=== PATIENT | female | born 1940 | race Caucasian/White ===

== ENCOUNTER 2019-01-11 13:37 | Inpatient (IN) | payer OTHER ==
[2019-01-11] MEDS ORDERED: MORPHINE 2 MG/ML SYR ONE ×3 (14:51→18:11)
[2019-01-11] MEDS ORDERED: ONDANSETRON 4 MG/2 ML VIAL ONE (14:51)
--- NOTE | 2019-01-11 15:53 | RAD REPORT ---
EXAM DESCRIPTION: RAD - Pelvis - 01/11/2019 3:43 pm CLINICAL HISTORY: Left hip pain status post injury FINDINGS: An intertrochanteric fracture involves the proximal left femur extending into the greater trochanter. Fracture fragments by 4 millimeters. Mild varus angulation. No dislocation seen
--- NOTE | 2019-01-11 15:54 | RAD REPORT ---
EXAM DESCRIPTION: RAD - Hip Left 2 View - 01/11/2019 3:43 pm CLINICAL HISTORY: Left hip pain status post injury FINDINGS: An intertrochanteric fracture involves the proximal left femur extending into the greater trochanter. Fracture fragments by 4 millimeters. Mild varus angulation. No dislocation seen
--- NOTE | 2019-01-11 16:19 | ER ---
Nurse's Notes [facility] Name: Luisa Sanchez Age: 78 yrs Sex: Female : 1940 Arrival Date: 01/11/2019 Time: 13:45 Bed 8 Private MD: Diagnosis: Left hip intertrochanteric fracture, closed head injury Presentation: 01/11 13:45 Presenting complaint: EMS states: She was walking to get her news paper when she aj1 slipped. Patient reports left hip pain, is unable to stand or bear weight. Transition of care: patient was not received from another setting of care. Onset of symptoms was January 11, 2019. Risk Assessment: Do you want to hurt yourself or someone else? Patient reports no desire to harm self or others. Initial Sepsis Screen: Does the patient meet any 2 criteria? No. Patient's initial sepsis screen is negative. Does the patient have a suspected source of infection? No. Patient's initial sepsis screen is negative. Care prior to arrival: None. 13:45 Method Of Arrival: EMS: [facility] aj1 13:45 Acuity: ELIEZER 3 aj1 Triage Assessment: 13:51 General: Appears in no apparent distress. uncomfortable, Behavior is calm, cooperative, aj1 appropriate for age. Pain: Complains of pain in left hip and lateral aspect of left thigh. Historical: - Allergies: 13:51 No Known Allergies; aj1 - Home Meds: 13:51 metformin 750 mg Oral Tb24 1 tab once daily [Active]; atorvastatin 10 mg oral tab 1 tab aj1 once daily [Active]; glimepiride 4 mg Oral tab 1 tab once daily [Active]; Bystolic 10 mg oral tab 1 tab once daily [Active]; losartan 100 mg oral tab 1 tab once daily [Active]; - PMHx: 13:51 Hypertension; Diabetes - NIDDM; Hyperlipidemia; aj1 - Immunization history:: Flu vaccine is not up to date. - Social history:: Smoking status: Patient uses tobacco products, smokes two packs cigarettes per day. - Ebola Screening: : Patient denies travel to an Ebola-affected area in the 21 days before illness onset. Screenin:55 Abuse screen: Denies threats or abuse. Denies injuries from another. Nutritional aj1 screening: No deficits noted. Tuberculosis screening: No symptoms or risk factors identified. 20:23 Fall Risk Fall in past 12 months (25 points). No secondary diagnosis (0 pts). IV access aj1 (20 points). Ambulatory Aid- None/Bed Rest/Nurse Assist (0 pts). Gait- Normal/Bed Rest/Wheelchair (0 pts) Mental Status- Oriented to own ability (0 pts). Total Oh Fall Scale indicates High Risk Score (45 or more points). Fall prevention measures have been instituted. Family Present and informed to notify staff if the need to leave the bedside As available patient and family educated on Fall Prevention Program and Strategies. Assessment: 13:55 General: Appears in no apparent distress. uncomfortable, Behavior is calm, cooperative, aj1 appropriate for age. Pain: Complains of pain in lateral aspect of left thigh and left hip Pain does not radiate. Pain currently is 9 out of 10 on a pain scale. Quality of pain is described as aching, sharp. Neuro: Level of Consciousness is awake, alert, obeys commands, Oriented to person, place, time, situation. Cardiovascular: Patient's skin is warm and dry. Respiratory: Airway is patent Respiratory effort is even, unlabored, Respiratory pattern is regular, symmetrical. GI: No signs and/or symptoms were reported involving the gastrointestinal system. : No signs and/or symptoms were reported regarding the genitourinary system. EENT: No signs and/or symptoms were reported regarding the EENT system. Derm: No signs and/or symptoms reported regarding the dermatologic system. Skin is pink, warm \T\ dry. normal. Musculoskeletal: Range of motion: limited in left hip. 14:45 Reassessment: Patient states that she is starting to have some pain now. Notified Dr. america Muhammad. Order received. 15:00 Reassessment: Patient appears in no apparent distress at this time. No changes from aj1 previously documented assessment. Patient and/or family updated on plan of care and expected duration. Pain level reassessed. Patient is alert, oriented x 3, equal unlabored respirations, skin warm/dry/pink. 16:00 Reassessment: Patient appears in no apparent distress at this time. No changes from aj1 previously documented assessment. Patient and/or family updated on plan of care and expected duration. Pain level reassessed. Patient is alert, oriented x 3, equal unlabored respirations, skin warm/dry/pink. 17:00 Reassessment: Dr. Muhammad at bedside to explain test results to patient and family. aj1 17:00 Reassessment: Patient and/or family updated on plan of care and expected duration. Pain aj1 level reassessed. General: Appears in no apparent distress. comfortable, Behavior is calm, cooperative, appropriate for age. Neuro: Level of Consciousness is awake, alert, obeys commands, Oriented to person, place, time, situation. Cardiovascular: Patient's skin is warm and dry. Respiratory: Airway is patent Respiratory effort is even, unlabored, Respiratory pattern is regular, symmetrical. Derm: No signs and/or symptoms reported regarding the dermatologic system. Skin is pink, warm \T\ dry. normal. Musculoskeletal: Range of motion: limited in left hip. 18:00 Reassessment: Patient reports that she is starting to have some pain again. Notified JMaya ajCHELSEA Ramey. Order received. 19:00 Reassessment: Patient and/or family updated on plan of care and expected duration. Pain aj1 level reassessed. General: Appears in no apparent distress. comfortable, Behavior is calm, cooperative, appropriate for age. Neuro: No deficits noted. Level of Consciousness is awake, alert, obeys commands, Oriented to person, place, time, situation. Cardiovascular: Patient's skin is warm and dry. Respiratory: Airway is patent Respiratory effort is even, unlabored, Respiratory pattern is regular, symmetrical. Derm: Skin is pink, warm \T\ dry. normal. Musculoskeletal: Range of motion: limited in left hip. 20:00 Reassessment: Patient appears in no apparent distress at this time. No changes from aj1 previously documented assessment. Patient and/or family updated on plan of care and expected duration. Pain level reassessed. Patient is alert, oriented x 3, equal unlabored respirations, skin warm/dry/pink. Vital Signs: 13:51 BP 185 / 66; Pulse 70; Resp 18; Temp 98.2; Pulse Ox 100% on R/A; Weight 63.5 kg (R); aj1 Height 5 ft. 5 in. (165.10 cm) (R); Pain 9/10; 15:00 BP 170 / 66; Pulse 67; Resp 18; Pulse Ox 97% on R/A; aj1 16:00 BP 171 / 66; Pulse 61; Resp 18; Pulse Ox 99% on R/A; aj1 17:00 BP 171 / 96; Pulse 61; Resp 18; Pulse Ox 99% ; aj1 18:00 BP 147 / 59; Pulse 55; Resp 18; Pulse Ox 99% on R/A; aj1 19:07 BP 164 / 60; Pulse 70; Resp 18; Pulse Ox 98% on R/A; mt 20:00 BP 161 / 62; Pulse 56; Resp 18; Pulse Ox 99% on R/A; aj1 13:51 Body Mass Index 23.30 (63.50 kg, 165.10 cm) aj1 ED Course: 13:45 Patient arrived in ED. aj1 13:47 Triage completed. aj1 13:51 Arm band placed on. aj1 13:55 Patient has correct armband on for positive identification. Bed in low position. Call aj1 light in reach. Side rails up X 1. 13:55 No provider procedures requiring assistance completed. aj1 14:03 Sergio Muhammad MD is Attending Physician. kdr 14:46 Karen Concepcion RN is Primary Nurse. aj1 15:42 Pelvis XRAY In Process Unspecified. EDMS 15:42 Hip Left 2 View XRAY In Process Unspecified. EDMS 16:16 Yuliana Taylor MD is Hospitalizing Provider. kdr 16:47 EKG done, by automotive technician instructor. sm3 16:57 Barone cath inserted, using sterile technique, 16 Fr., balloon inflated, returned cloudy aj1 urine. Patient tolerated well. 17:06 Initial lab(s) drawn, by pr, sent to lab. 3 20:00 Report given to ALDO Quick on 2nd floor. aj1 20:23 Patient admitted, IV remains in place. aj1 Administered Medications: 14:48 Drug: morphine 2 mg Route: IVP; Site: right wrist; aj1 15:15 Follow up: Response: No adverse reaction; Pain is decreased aj1 14:48 Drug: Zofran 4 mg Route: IVP; Site: right wrist; aj1 15:15 Follow up: Response: No adverse reaction aj1 17:02 Drug: morphine 2 mg Route: IVP; Site: right wrist; aj1 17:30 Follow up: Response: No adverse reaction; Pain is decreased aj1 18:10 Drug: morphine 2 mg Route: IVP; Site: right wrist; aj1 18:45 Follow up: Response: No adverse reaction; Pain is decreased aj1 Outcome: 16:19 Decision to Hospitalize by Provider. kdr 20:23 Admitted to Med/surg accompanied by tech, via stretcher, with chart. aj1 20:23 Condition: stable 20:23 Discharge instructions given to patient, family, Instructed on the need for admit, Demonstrated understanding of instructions. 20:31 Patient left the ED. aj1 Signatures: Dispatcher [employer] EDKaren Jean-Baptiste RN RN aj1 Sergio Muhammad MD MD kdr Thompson, Moriah mt Herrera, Deanna 3 Joslyn Panda 3
--- NOTE | 2019-01-11 16:19 | EDPHYS ---
Physician Documentation [facility] Name: Luisa Sanchez Age: 78 yrs Sex: Female : 1940 Arrival Date: 01/11/2019 Time: 13:45 Bed 8 Private MD: ED Physician Sergio Muhammad HPI: 01/11 16:19 This 78 yrs old Female presents to ER via EMS with complaints of Hip Pain. kdr 16:19 The patient or guardian reports decreased range of motion, an injury, pain. that kdr occurred at home, sustained from a fall, while walking, There is no obvious deformity, The patient is not able to ambulate. Patient is not able to bear weight. There is no radiation of the patient's discomfort. The patient was discovered at or immediately after the incident. The complaints affect the left hip. Onset: The symptoms/episode began/occurred suddenly, just prior to arrival. Modifying factors: The symptoms are alleviated by remaining still, the symptoms are aggravated by any movement. Associated signs and symptoms: Loss of consciousness: the patient experienced no loss of consciousness. Severity of symptoms: At their worst the symptoms were mild, moderate, in the emergency department the symptoms are unchanged. The patient has not experienced similar symptoms in the past. The patient has not recently seen a physician. Historical: - Allergies: 13:51 No Known Allergies; aj1 - Home Meds: 13:51 metformin 750 mg Oral Tb24 1 tab once daily [Active]; atorvastatin 10 mg oral tab 1 tab aj1 once daily [Active]; glimepiride 4 mg Oral tab 1 tab once daily [Active]; Bystolic 10 mg oral tab 1 tab once daily [Active]; losartan 100 mg oral tab 1 tab once daily [Active]; - PMHx: 13:51 Hypertension; Diabetes - NIDDM; Hyperlipidemia; aj1 - Immunization history:: Flu vaccine is not up to date. - Social history:: Smoking status: Patient uses tobacco products, smokes two packs cigarettes per day. - Ebola Screening: : Patient denies travel to an Ebola-affected area in the 21 days before illness onset. ROS: 16:19 Constitutional: Negative for fever, chills, and weight loss, Eyes: Negative for injury, kdr pain, redness, and discharge, ENT: Negative for injury, pain, and discharge, Neck: Negative for injury, pain, and swelling, Cardiovascular: Negative for chest pain, palpitations, and edema, Respiratory: Negative for shortness of breath, cough, wheezing, and pleuritic chest pain, Abdomen/GI: Negative for abdominal pain, nausea, vomiting, diarrhea, and constipation, Back: Negative for injury and pain, : Negative for injury, bleeding, discharge, and swelling, Skin: Negative for injury, rash, and discoloration, Neuro: Negative for headache, weakness, numbness, tingling, and seizure activity. Psych: Negative for depression, anxiety, suicide ideation, homicidal ideation, and hallucinations, Allergy/Immunology: Negative for hives, rash, and allergies, Endocrine: Negative for neck swelling, polydipsia, polyuria, polyphagia, and marked weight changes, Hematologic/Lymphatic: Negative for swollen nodes, abnormal bleeding, and unusual bruising. 16:19 MS/extremity: Positive for injury or acute deformity, decreased range of motion, pain, tenderness, of the left hip. Exam: 16:19 Constitutional: This is a well developed, well nourished patient who is awake, alert, kdr and in no acute distress. Head/Face: Normocephalic, atraumatic. Neck: Trachea midline, no thyromegaly or masses palpated, and no cervical lymphadenopathy. Supple, full range of motion without nuchal rigidity, or vertebral point tenderness. No Meningismus. Chest/axilla: Normal chest wall appearance and motion. Nontender with no deformity. No lesions are appreciated. Cardiovascular: Regular rate and rhythm with a normal S1 and S2. No gallops, murmurs, or rubs. Normal PMI, no JVD. No pulse deficits. Respiratory: Lungs have equal breath sounds bilaterally, clear to auscultation and percussion. No rales, rhonchi or wheezes noted. No increased work of breathing, no retractions or nasal flaring. Abdomen/GI: Soft, non-tender, with normal bowel sounds. No distension or tympany. No guarding or rebound. No evidence of tenderness throughout. Back: No spinal tenderness. No costovertebral tenderness. Full range of motion. Skin: Warm, dry with normal turgor. Normal color with no rashes, no lesions, and no evidence of cellulitis. Neuro: Awake and alert, GCS 15, oriented to person, place, time, and situation. Cranial nerves II-XII grossly intact. Motor strength 5/5 in all extremities. Sensory grossly intact. Cerebellar exam normal. Normal gait. Psych: Awake, alert, with orientation to person, place and time. Behavior, mood, and affect are within normal limits. 16:19 Musculoskeletal/extremity: Extremities: grossly normal except: noted in the left hip: decreased ROM, pain. Vital Signs: 13:51 BP 185 / 66; Pulse 70; Resp 18; Temp 98.2; Pulse Ox 100% on R/A; Weight 63.5 kg (R); aj1 Height 5 ft. 5 in. (165.10 cm) (R); Pain 9/10; 15:00 BP 170 / 66; Pulse 67; Resp 18; Pulse Ox 97% on R/A; aj1 16:00 BP 171 / 66; Pulse 61; Resp 18; Pulse Ox 99% on R/A; aj1 17:00 BP 171 / 96; Pulse 61; Resp 18; Pulse Ox 99% ; aj1 18:00 BP 147 / 59; Pulse 55; Resp 18; Pulse Ox 99% on R/A; aj1 19:07 BP 164 / 60; Pulse 70; Resp 18; Pulse Ox 98% on R/A; mt 20:00 BP 161 / 62; Pulse 56; Resp 18; Pulse Ox 99% on R/A; aj1 13:51 Body Mass Index 23.30 (63.50 kg, 165.10 cm) [facility] MDM: 16:19 Patient medically screened. kdr 16:19 Data reviewed: vital signs, nurses notes, lab test result(s), radiologic studies. kdr Counseling: I had a detailed discussion with the patient and/or guardian regarding: the historical points, exam findings, and any diagnostic results supporting the discharge/admit diagnosis, lab results, radiology results, the need for further work-up and treatment in the hospital. 01/11 16:23 Order name: CBC with Automated Diff; Complete Time: : EDSD 01/11 16:23 Order name: Comprehensive Metabolic Panel; Complete Time: : EDSD 01/11 14:17 Order name: Pelvis XRAY; Complete Time: : kdr 01/11 14:17 Order name: Hip Left 2 View XRAY; Complete Time: 20:05 kdr 01/11 16:23 Order name: Protime (+INR); Complete Time: : EDMS 01/11 16:23 Order name: PTT, Activated Partial Thromb; Complete Time: 06:28 EDMS 01/11 16:23 Order name: EKG Electrocardiogram EDSD 01/11 16:23 Order name: Chest Single View; Complete Time: 06: EDMS Administered Medications: 14:48 Drug: morphine 2 mg Route: IVP; Site: right wrist; aj1 15:15 Follow up: Response: No adverse reaction; Pain is decreased aj1 14:48 Drug: Zofran 4 mg Route: IVP; Site: right wrist; aj1 15:15 Follow up: Response: No adverse reaction aj1 17:02 Drug: morphine 2 mg Route: IVP; Site: right wrist; aj1 17:30 Follow up: Response: No adverse reaction; Pain is decreased aj1 18:10 Drug: morphine 2 mg Route: IVP; Site: right wrist; aj1 18:45 Follow up: Response: No adverse reaction; Pain is decreased aj1 Disposition: 01/11/19 16:19 Hospitalization ordered by Yuliana Taylor for Inpatient Admission. Preliminary diagnosis is Left hip intertrochanteric fracture, closed head injury. - Bed requested for Telemetry/MedSurg (Inpatient). - Status is Inpatient Admission. aj1 - Condition is Fair. - Problem is new. - Symptoms have improved. UTI on Admission? No Signatures: Dispatcher [employer] EDSD Karen Concepcion RN RN aj1 Sergio Muhammad MD MD [facility] Jose L em1 Alex Croft MD MD tw4 Corrections: (The following items were deleted from the chart) 18:54 16:19 Hospitalization Ordered by Yuliana Taylor MD for Inpatient Admission. Preliminary em1 diagnosis is Left hip intertrochanteric fracture, closed head injury. Bed requested for Telemetry/MedSurg (Inpatient). Status is Inpatient Admission. Condition is Fair. Problem is new. Symptoms have improved. UTI on Admission? No. kdr 20:31 18:54 01/11/2019 16:19 Hospitalization Ordered by Yulaina Taylor MD for Inpatient aj1 Admission. Preliminary diagnosis is Left hip intertrochanteric fracture, closed head injury. Bed requested for Telemetry/MedSurg (Inpatient). Status is Inpatient Admission. Condition is Fair. Problem is new. Symptoms have improved. UTI on Admission? No. em1
[2019-01-11 17:28] LABS: Absolute Lymphocytes (CBC) 0.8 K/uL (0.7-4.9); Absolute Monocytes 0.4 K/uL (0.1-1.3); Absolute Neutrophil 6.8 K/uL (1.8-8.0); Basophils % 0.4 % (0-1.3); Eosinophils % 0.7 % (0-4.4); Hematocrit 35.5 % (36.0-45.0); Lymphocytes % 9.7 % (15.3-44.8); MPV 8.8 fL (7.6-11.3); Monocytes % 4.8 % (3.3-12.3); RBC Red Blood Cell Count 4.14 M/uL (3.86-4.86)
[2019-01-11 17:37] LABS: Albumin 3.5 g/dL (3.4-5.0); Bilirubin Total 0.3 mg/dL (0.2-1.0); Potassium 4.3 mmol/L (3.5-5.1); Protein, Total 6.4 g/dL (6.4-8.2)
--- NOTE | 2019-01-11 18:06 | RAD REPORT ---
EXAM DESCRIPTION: Susi Single View01/11/2019 5:52 pm CLINICAL HISTORY: Chest pain COMPARISON: none FINDINGS: The lungs appear clear of acute infiltrate. The heart is normal size IMPRESSION: No acute abnormalities displayed
--- NOTE | 2019-01-11 18:20 | P.HP ---
Certification for Inpatient Patient admitted to: Inpatient With expected LOS: >2 Midnights Practitioner: I am a practitioner with admitting privileges, knowledge of patient current condition, hospital course, and medical plan of care. 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 Patient stated that she had a mechanical fall though she slipped and hit her tailbone. Patient was brought over to the ER by the EMS. Patient complained of having some left-sided his brain along with bruising on the left side as well. Patient denies having any abdominal pain or any other associated symptoms. In the ER patient was found to have left-sided hip fracture and thus was referred for admission for further treatment. Allergies No Known Allergies Allergy (Unverified 01/11/19 17:54) Review of Systems 10-point ROS is otherwise unremarkable Physical Examination - Physical Exam General: Alert, Mild distress HEENT: Atraumatic, PERRLA, Mucous membr. moist/pink, EOMI, Sclerae nonicteric Neck: Supple, 2+ carotid pulse no bruit, No LAD, Without JVD or thyroid abnormality Respiratory: Clear to auscultation bilaterally, Normal air movement Cardiovascular: Regular rate/rhythm, Normal S1 S2 Gastrointestinal: Normal bowel sounds, No tenderness Musculoskeletal: Swelling, Tenderness, Other (Left leg internally rotated) Integumentary: No rashes Neurological: Normal gait, Normal speech, Normal strength at 5/5 x4 extr, Normal tone, Normal affect Lymphatics: No axilla or inguinal lymphadenopathy Assessment and Plan - Problems (Diagnosis) (1) Hip fracture, left Current Visit: Yes Status: Acute Plan: Left Hip fracture after a mechanical Fall -orthopedics consulted. Appreciated recommendations at this time -will get CBC, CMP, coagulation, x-ray and EKG in preparation for surgical procedure. -NPO after midnight -IV fluids at this time Qualifiers: Encounter type: initial encounter Fracture type: closed Qualified Code(s) : S72.002A - Fracture of unspecified part of neck of left femur, initial encounter for closed fracture (2) HTN (hypertension) Current Visit: Yes Status: Chronic Plan: Currently stable will restart home medication once patient is able to take oral Qualifiers: Hypertension type: essential hypertension Qualified Code(s): I10 - Essential (primary) hypertension (3) Diabetes Current Visit: Yes Status: Chronic Plan: Insulin sliding scale for now Qualifiers: Diabetes mellitus type: type 2 Diabetes mellitus oil heaterman insulin use: without half-way use Diabetes mellitus complication status: without complication Qualified Code(s): E11.9 - Type 2 diabetes mellitus without complications (4) Hyperlipidemia Current Visit: Yes Status: Chronic Plan: Will restart medication once patient is able to take oral Qualifiers: Hyperlipidemia type: mixed hyperlipidemia Qualified Code(s): E78.2 - Mixed hyperlipidemia - Plan Patient to be admitted to medical-surgical floor for left hip fracture with possible surgical intervention with orthopedics. Discharge Plan: Home Plan to discharge in: 48 Hours - Advance Directives Does patient have a Living Will: No Does patient have a Durable POA for Healthcare: No - Code Status/Comfort Care Code Status Assessed: Yes Critical Care: No
[2019-01-11] MEDS: NA CHLORIDE 0.9% 1,000 ML IV SCH (21:41)
[2019-01-11] MEDS: MORPHINE 2 MG/ML SYR IV PRN (21:55)
[2019-01-11] MEDS: NICOTINE 21 MG/PAT TD SCH ×2 (21:56→21:57)
[2019-01-11] MEDS ORDERED: METOPROLOL TARTRATE 5 MG/5 ML INJ IV STA (22:15)
[2019-01-11] MEDS ORDERED: AMLODIPINE 5 MG TAB PO ONE (22:15)
--- NOTE | 2019-01-11 22:50 | EKG ---
Test Date: 2019-01-11 Test Time: 16:40:11 [employer] Instructor: JALIL MEASUREMENT RESULTS: Intervals: Rate: 66 LA: 158 QRSD: 78 QT: 434 QTc: 454 [place]: P: 59 LA: 158 QRS: 42 T: 70 INTERPRETIVE STATEMENTS: Normal sinus rhythm Right atrial enlargement Septal infarct, age undetermined Abnormal ECG No previous ECG available for comparison Electronically Signed On 01-11-19 22:50:13 NET UI DEVELOPER by Glen Perez
[2019-01-11] MEDS ORDERED: LOSARTAN POTASSIUM 50 MG TABLET PO ONE (23:00)
[2019-01-11] MEDS ORDERED: METOPROLOL TAR 50 MG TAB PO ONE (23:50)
[2019-01-12 01:01] LABS: Urine Appearance CLOUDY; Urine Bilirubin NEGATIVE (NEG); Urine Blood 2+ (NEG); Urine Color YELLOW; Urine Glucose 2+ (NEG); Urine Protein 2+ (NEG); Urine Specific Gravity 1.015 (1.005-1.030); Urine Urobilinogen 0.2 mg/dL (0.2-1.0)
[2019-01-12 01:15] LABS: Urine Microscopic Reflex ORDER UMIC
[2019-01-12 01:56] LABS: Urine Bacteria LOADED /HPF (<20); Urine Culture Reflex Order REFLEXED; Urine RBC <5 /HPF (NONE SEEN)
[2019-01-12] MEDS: MORPHINE 2 MG/ML SYR IV PRN ×5 (02:58→19:49)
[2019-01-12] MEDS: NA CHLORIDE 0.9% 1,000 ML IV SCH ×2 (02:58→05:42)
[2019-01-12 06:29] LABS: Absolute Lymphocytes (CBC) 0.9 K/uL (0.7-4.9); Absolute Monocytes 0.8 K/uL (0.1-1.3); Absolute Neutrophil 4.9 K/uL (1.8-8.0); Basophils % 0.2 % (0-1.3); Eosinophils % 2.4 % (0-4.4); Hematocrit 34.9 % (36.0-45.0); Lymphocytes % 13.2 % (15.3-44.8); MPV 8.6 fL (7.6-11.3); Monocytes % 11.4 % (3.3-12.3); RBC Red Blood Cell Count 4.03 M/uL (3.86-4.86)
[2019-01-12 06:38] LABS: Albumin 3.4 g/dL (3.4-5.0); Bilirubin Total 0.5 mg/dL (0.2-1.0); Magnesium 1.8 mg/dL (1.8-2.4); Phosphorus 3.1 mg/dL (2.5-4.9); Potassium 4.7 mmol/L (3.5-5.1); Protein, Total 6.4 g/dL (6.4-8.2)
--- NOTE | 2019-01-12 08:35 | P.PN ---
Date of Service: 01/11/19 Called to see patient as family wanted to speak to a physician. Patient's granddaughter works at the hospital as an R.N.. She states she is wanting to know what the treatment plan is. Her grandmother apparently fell while walking in her driveway. She slipped on some wet algae that had overgrown onto the driveway. She slipped and she went down. She suffered a hip fracture, patient was brought into the hospital. No history of cardiopulmonary issues. Does smoke however all her prior testing have been normal. Patient's blood pressure is elevated. Patient restarted on some of her home blood pressure medications. Also her grandmother was hungry. Go ahead and start her on a diet and make her NPO after midnight. Patient is low risk for crit any cardiopulmonary complications. Benefits of surgery outweigh the risks. She is a smoker and will put her on a nicotine patch and will get her blood pressure better controlled. Plan for surgery in the morning.
[2019-01-12] MEDS: ENOXAPARIN 40 MG/0.4 ML SQ SCH (08:48)
[2019-01-12] MEDS: LOSARTAN POTASSIUM 50 MG TABLET PO SCH (08:48)
[2019-01-12] MEDS: METOPROLOL TARTRATE 5 MG/5 ML INJ IV SCH ×3 (08:48→21:00)
[2019-01-12] MEDS ORDERED: MAGNESIUM SULFATE 1 gm IVPB 1 GM/100 ML BAG IV ONE (09:00)
[2019-01-12] MEDS ORDERED: MIDAZOLAM HCL 2 MG/2 ML INJ ONE (10:46)
[2019-01-12] MEDS ORDERED: FENTANYL CITR 100 MCG/2 ML ONE (10:46)
[2019-01-12] MEDS ORDERED: PROPOFOL 200 MG/20 ML VIAL IV ONE (10:46)
[2019-01-12] MEDS ORDERED: LIDOCAINE 2% MPF 5 ML VIAL ONE (10:46)
[2019-01-12] MEDS ORDERED: SCOPOLAMINE HYDROBROMIDE PATCH TD ONE (10:47)
[2019-01-12] MEDS ORDERED: ONDANSETRON 4 MG/2 ML VIAL ONE (10:47)
[2019-01-12] MEDS ORDERED: ALBUTEROL 2.5 MG/3 ML NEB SOL ONE (10:53)
[2019-01-12] MEDS ORDERED: TRANEXAMIC ACID 1,000 MG in NA CHLORIDE 0.9% 50 ML IV SCH (11:30)
[2019-01-12] MEDS ORDERED: CEFAZOLIN 2GM (PREMIX IV) 2 GM/50 ML BAG ONE (11:31)
--- NOTE | 2019-01-12 13:01 | P.BOP ---
Preoperative diagnosis: left it fracture Postoperative diagnosis: same Primary procedure: left ADRIANA cora Estimated blood loss: 50 ccs Anesthesia: General Transferred to: Recovery Room Condition: Good
[2019-01-12] MEDS: HYDROMORPHONE HCL 2 MG/ML inj ONE ×2 (13:25→13:30)
--- NOTE | 2019-01-12 13:32 | P.PN ---
Subjective Date of Service: 01/12/19 Chief Complaint: Fall Subjective: NPO, Doing well, Other (Awaiting Surgery this AM) Review of Systems 10-point ROS is otherwise unremarkable Physical Examination - Vital Signs Temperature: 97.5 F Blood Pressure: 145/90 Pulse: 66 Respirations: 16 Pulse Ox (%): 96 - Physical Exam General: Alert, In no apparent distress HEENT: Atraumatic, PERRLA, EOMI Neck: Supple, JVD not distended Respiratory: Clear to auscultation bilaterally, Normal air movement Cardiovascular: Regular rate/rhythm, Normal S1 S2 Gastrointestinal: Normal bowel sounds, No tenderness Musculoskeletal: No tenderness Integumentary: No rashes Neurological: Normal speech, Normal tone, Normal affect Lymphatics: No axilla or inguinal lymphadenopathy - Studies Medications List Reviewed: Yes Assessment And Plan - Current Problems (Diagnosis) (1) Hip fracture, left Current Visit: Yes Status: Acute Plan: Left Hip fracture after a mechanical Fall -orthopedics consulted. Appreciated recommendations at this time -Scheduled for procedure today -Cleared for surgery today -NPO after midnight -IV fluids at this time Qualifiers: Encounter type: initial encounter Fracture type: closed Qualified Code(s) : S72.002A - Fracture of unspecified part of neck of left femur, initial encounter for closed fracture (2) HTN (hypertension) Current Visit: Yes Status: Chronic Qualifiers: Hypertension type: essential hypertension Qualified Code(s): I10 - Essential (primary) hypertension (3) Diabetes Current Visit: Yes Status: Chronic Qualifiers: Diabetes mellitus type: type 2 Diabetes mellitus long term care pharmacist insulin use: without fci use Diabetes mellitus complication status: without complication Qualified Code(s): E11.9 - Type 2 diabetes mellitus without complications (4) Hyperlipidemia Current Visit: Yes Status: Chronic Qualifiers: Hyperlipidemia type: mixed hyperlipidemia Qualified Code(s): E78.2 - Mixed hyperlipidemia Discharge Plan: Home Plan to discharge in: 48 Hours - Code Status/Comfort Care Code Status Assessed: Yes Critical Care: No
[2019-01-12] MEDS ORDERED: EPHEDRINE SULF 50 MG/10 ML SYR ONE (13:33)
[2019-01-12] MEDS ORDERED: NA CHLORIDE 0.9% 1,000 ML ONE (13:50)
--- NOTE | 2019-01-12 22:47 | OP ---
Date of Procedure: 01/12/2019 Surgeon: Bob Woodson MD Postoperative Diagnosis: Left hip intertrochanteric fracture. Postoperative Diagnosis: Left hip intertrochanteric fracture. Procedure: Left hip closed reduction with intramedullary cora fixation. Implant: Affixus nail. Estimated Blood Loss: 30 cc. Complications: There were no complications. Specimens: No pathology specimen sent. Indication For Operation: Ms. Sanchez is a 78-year-old female who unfortunately fell in her driveway, injuring her left lower extremity. She was seen and examined in the emergency department where x-ray s were taken, which demonstrated an intertrochanteric fracture on the left. All risks, benefits, and alternatives to this procedure have been discussed with the patient. She and her family state they understand things as presented and wish to proceed. Description Of Procedure: The patient was taken to the operating room and placed in the supine posit ion. General anesthesia was obtained by the staff. Following this, she was then placed on the fract ure table. Her diaper was removed, and she was found to have a very large prolapsed uterus which bas ically would impinge upon the perineal post. Consultation was made with ASTROBIOLOGIST, who came in and was able to reduce the prolapse, and then she was placed onto the perineal post. A closed reduction shraddha uver was performed with a very good reduction on the C-arm. Following this, she was then prepped and draped in usual sterile fashion. A standard longitudinal incision was made superior to the greater trochanter. This was taken down carefully through skin and soft tissues through the fascia. The gre ater trochanter was palpated with a finger, and starting awl was then placed without difficulty. Thi s was followed by placement of the guide pin and over-reaming the guide pin with a chemical handler. Afte r this, the nail was then placed to appropriate depth. It was a little bit more posterior. There ma y be some posterior sag. However, it appeared that this was the best area for maintaining a good red uction with placement of the screw in appropriate position. Therefore, the lag screw was then placed . Following this, attention was then turned distally where an interlocking screw was placed. The na il was then locked into place using the locking screw. The wound was gently irrigated, and the fasci a was closed in a watertight fashion using Vicryl sutures, followed by closure of the skin using Vicr yl and stephen. The patient was then placed in Aquacel dressing, awakened, and taken to recovery [facility] in good condition. There were no complications. /LINDSAY Voice ID: [id number] Report ID: [id number]
[2019-01-13] MEDS: MORPHINE 2 MG/ML SYR IV PRN ×2 (01:05→05:29)
[2019-01-13] MEDS: NA CHLORIDE 0.9% 1,000 ML IV SCH ×2 (01:06→05:35)
[2019-01-13] MEDS: METOPROLOL TARTRATE 5 MG/5 ML INJ IV SCH ×2 (02:52→08:30)
[2019-01-13] MEDS ORDERED: CEFAZOLIN/NS 1gm 1 GM/50 ML BAG IVPB SCH (03:00)
[2019-01-13] MEDS ORDERED: CEFAZOLIN SODIUM 1 GM/VIAL ONE (03:35)
[2019-01-13] MEDS ORDERED: NA CHLORIDE 0.9% 50 ML ONE (03:38)
[2019-01-13 05:15] LABS: Absolute Lymphocytes (CBC) 0.4 K/uL (0.7-4.9); Absolute Monocytes 0.8 K/uL (0.1-1.3); Absolute Neutrophil 6.4 K/uL (1.8-8.0); Basophils % 0.1 % (0-1.3); Eosinophils % 0.3 % (0-4.4); Hematocrit 26.2 % (36.0-45.0); Lymphocytes % 5.8 % (15.3-44.8); MPV 8.9 fL (7.6-11.3); Monocytes % 10.1 % (3.3-12.3); RBC Red Blood Cell Count 3.02 M/uL (3.86-4.86)
[2019-01-13 05:27] LABS: Magnesium 1.9 mg/dL (1.8-2.4); Potassium 4.5 mmol/L (3.5-5.1)
[2019-01-13] MEDS ORDERED: PNEUMOCOCCAL VACCINE 0.5 ML IMVAC ONE (08:00)
[2019-01-13] MEDS ORDERED: GLUCAGON 1 MG/VIAL IM PRN (09:40)
[2019-01-13] MEDS ORDERED: D50W 25 GM/50 ML SYRINGE IV PRN (09:40)
[2019-01-13] MEDS: HYDROCODONE/APAP 7.5/325 MG TAB PO PRN ×3 (09:50→21:09)
[2019-01-13] MEDS: ENOXAPARIN 40 MG/0.4 ML SQ SCH (09:51)
[2019-01-13] MEDS: LOSARTAN POTASSIUM 50 MG TABLET PO SCH (09:52)
[2019-01-13] MEDS: NICOTINE 21 MG/PAT TD SCH (09:53)
--- NOTE | 2019-01-13 09:57 | DS ---
History Of Present Illness: This is my first time seeing this patient to my knowledge. She is a 78- year-old female, who unfortunately fell in her driveway injuring her left lower extremity. She was s een and examined in the emergency department where she was ruled out for other injuries. However, x- ray demonstrated a slightly displaced fracture of the intertrochanteric region of the left hip. Physical Examination: All of her long bones and joints are palpated without pain or crepitation. She does have some change s of psoriasis on her elbows. Otherwise, movement of the left hip causes significant pain. Diagnostic Data: Review of her x-rays revealed a slightly displaced intertrochanteric fracture on th e left. Assessment: This is a 78-year-old female now with a slightly displaced intertrochanteric fracture on the left. Risks, benefits, and alternatives to this have been discussed with the patient and family . They state they understand things presented at this time, and will proceed with closed reduction w ith intramedullary cora fixation. I have spoken with the hospitalist who is her primary care shweta arthur, and at this time, they feel she is cleared for surgery. All of her other questions have been answ ered. /LINDSAY Voice ID: [id number] Report ID: [id number]
--- NOTE | 2019-01-13 09:59 | P.PN ---
Subjective Date of Service: 01/13/19 Chief Complaint: Fall Subjective: No C/O voiced, Tolerating diet, Improving, Working w/ PT, Doing well , Other (S/p ORIF) Review of Systems 10-point ROS is otherwise unremarkable Physical Examination - Vital Signs Temperature: 99.5 F Blood Pressure: 137/63 Pulse: 72 Respirations: 18 Pulse Ox (%): 100 - Physical Exam General: Alert, In no apparent distress HEENT: Atraumatic, PERRLA, EOMI Neck: Supple, JVD not distended Respiratory: Clear to auscultation bilaterally, Normal air movement Cardiovascular: Regular rate/rhythm, Normal S1 S2 Gastrointestinal: Normal bowel sounds, No tenderness Musculoskeletal: No tenderness Integumentary: No rashes Neurological: Normal speech, Normal tone, Normal affect Lymphatics: No axilla or inguinal lymphadenopathy - Studies Medications List Reviewed: Yes Assessment And Plan - Current Problems (Diagnosis) (1) Hip fracture, left Current Visit: Yes Status: Acute Plan: Left Hip fracture after a mechanical Fall -orthopedics consulted. Appreciated recommendations at this time -S/P ORIF POD# 1 -Pain mgmt with [place] -Working with PT -Placement with CM Qualifiers: Encounter type: initial encounter Fracture type: closed Qualified Code(s) : S72.002A - Fracture of unspecified part of neck of left femur, initial encounter for closed fracture (2) HTN (hypertension) Current Visit: Yes Status: Chronic Plan: -Restart Home medication Qualifiers: Hypertension type: essential hypertension Qualified Code(s): I10 - Essential (primary) hypertension (3) Diabetes Current Visit: Yes Status: Chronic Plan: Insulin sliding scale for now Qualifiers: Diabetes mellitus type: type 2 Diabetes mellitus 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
[2019-01-13] MEDS ORDERED: CEFAZOLIN/SWI 1gm 1 GM/10 ML SYR IV SCH (11:30)
[2019-01-13] MEDS: INSULIN -REGULAR HUMAN 50 UNIT/0.5 ML ML SQ SCH ×3 (13:09→21:00)
--- NOTE | 2019-01-13 14:16 | RAD REPORT ---
EXAM DESCRIPTION: RAD - Hip In Or - 01/12/2019 2:27 pm CLINICAL HISTORY: Left hip surgery FINDINGS: Seven fluoroscopic spot images submitted. Fluoroscopy time 1.3 minute. Intramedullary cora and compression screw affix a proximal left femoral fracture. The examination was performed by Dr. Woodson.
[2019-01-13 17:42] VITALS: BMI 23.3
[2019-01-13] MEDS: DOCUSATE NA 100 MG CAP PO SCH (21:09)
[2019-01-13] MEDS: ATORVASTATIN 10 MG TAB PO SCH (21:09)
[2019-01-14] MEDS: HYDROCODONE/APAP 7.5/325 MG TAB PO PRN (05:23)
[2019-01-14 05:25] LABS: Absolute Lymphocytes (CBC) 0.5 K/uL (0.7-4.9); Absolute Monocytes 0.5 K/uL (0.1-1.3); Absolute Neutrophil 4.3 K/uL (1.8-8.0); Basophils % 0.3 % (0-1.3); Eosinophils % 2.1 % (0-4.4); Hematocrit 27.8 % (36.0-45.0); Lymphocytes % 8.6 % (15.3-44.8); MPV 9.3 fL (7.6-11.3); Monocytes % 8.8 % (3.3-12.3); RBC Red Blood Cell Count 3.18 M/uL (3.86-4.86)
[2019-01-14] MEDS: INSULIN -REGULAR HUMAN 50 UNIT/0.5 ML ML SQ SCH ×4 (07:30→21:00)
[2019-01-14] MEDS ORDERED: NEBIVOLOL HCL 5 MG TAB PO SCH (09:00)
[2019-01-14] MEDS: NICOTINE 21 MG/PAT TD SCH (09:07)
[2019-01-14] MEDS: DOCUSATE NA 100 MG CAP PO SCH ×2 (09:07→21:18)
[2019-01-14] MEDS: LOSARTAN POTASSIUM 50 MG TABLET PO SCH (09:07)
[2019-01-14] MEDS: ENOXAPARIN 40 MG/0.4 ML SQ SCH (09:07)
--- NOTE | 2019-01-14 11:04 | P.PN ---
Subjective Date of Service: 01/14/19 Chief Complaint: Fall Subjective: Tolerating diet, Ambulating, Improving, Working w/ PT, Doing well Review of Systems 10-point ROS is otherwise unremarkable Physical Examination - Vital Signs Temperature: 97.8 F Blood Pressure: 121/56 Pulse: 86 Respirations: 20 Pulse Ox (%): 90 - Physical Exam General: Alert, In no apparent distress HEENT: Atraumatic, PERRLA, EOMI Neck: Supple, JVD not distended Respiratory: Clear to auscultation bilaterally, Normal air movement Cardiovascular: Regular rate/rhythm, Normal S1 S2 Gastrointestinal: Normal bowel sounds, No tenderness Musculoskeletal: No tenderness Integumentary: No rashes Neurological: Normal speech, Normal tone, Normal affect Lymphatics: No axilla or inguinal lymphadenopathy - Studies Medications List Reviewed: Yes Assessment And Plan - Current Problems (Diagnosis) (1) Hip fracture, left Current Visit: Yes Status: Acute Plan: Left Hip fracture after a mechanical Fall -orthopedics consulted. Appreciated recommendations at this time -S/P ORIF POD# 2 -Pain mgmt with [place] -Working with PT -Placement with CM Qualifiers: Encounter type: initial encounter Fracture type: closed Qualified Code(s) : S72.002A - Fracture of unspecified part of neck of left femur, initial encounter for closed fracture (2) HTN (hypertension) Current Visit: Yes Status: Chronic Plan: -Restart Home medication Qualifiers: Hypertension type: essential hypertension Qualified Code(s): I10 - Essential (primary) hypertension (3) Diabetes Current Visit: Yes Status: Chronic Plan: Insulin sliding scale for now Qualifiers: Diabetes mellitus type: type 2 Diabetes mellitus alf insulin use: without alf use Diabetes mellitus complication status: without complication Qualified Code(s): E11.9 - Type 2 diabetes mellitus without complications (4) Hyperlipidemia Current Visit: Yes Status: Chronic Plan: Restart Home medication Qualifiers: Hyperlipidemia type: mixed hyperlipidemia Qualified Code(s): E78.2 - Mixed hyperlipidemia Discharge Plan: Other Plan to discharge in: Greater than 2 days - Code Status/Comfort Care Code Status Assessed: Yes Critical Care: No
[2019-01-14 16:19] LABS: Absolute Lymphocytes (CBC) 0.6 K/uL (0.7-4.9); Absolute Monocytes 0.6 K/uL (0.1-1.3); Absolute Neutrophil 4.1 K/uL (1.8-8.0); Basophils % 0.4 % (0-1.3); Eosinophils % 1.7 % (0-4.4); Hematocrit 25.3 % (36.0-45.0); Lymphocytes % 10.7 % (15.3-44.8); MPV 8.4 fL (7.6-11.3); Monocytes % 10.3 % (3.3-12.3); RBC Red Blood Cell Count 2.91 M/uL (3.86-4.86)
[2019-01-14 16:52] LABS: Albumin 2.7 g/dL (3.4-5.0); Bilirubin Total 0.4 mg/dL (0.2-1.0); Potassium 4.5 mmol/L (3.5-5.1); Protein, Total 5.6 g/dL (6.4-8.2)
[2019-01-14] MEDS ORDERED: POLYETHYL GLY 3350 17 GM/DOSE PO ONE (18:53)
[2019-01-14] MEDS: ATORVASTATIN 10 MG TAB PO SCH (21:18)
[2019-01-14] MEDS ORDERED: METOPROLOL TARTRATE 5 MG/5 ML INJ IV STA (23:14)
[2019-01-14] MEDS: METOPROLOL TARTRATE 5 MG/5 ML INJ IV SCH ×2 (23:35→23:42)
[2019-01-15] MEDS ORDERED: DIGOXIN 0.25 MG/ML AMP IV ONE (01:07)
[2019-01-15] MEDS ORDERED: PANTOPRAZOLE 40MG TABLET PO ONE (01:07)
[2019-01-15] MEDS ORDERED: CEFTRIAXONE 1 GM/NS 50 ML 1 GM/50 ML BAG IV ONE (01:56)
[2019-01-15] MEDS: HYDROCODONE/APAP 7.5/325 MG TAB PO PRN ×2 (02:59→17:59)
[2019-01-15] MEDS ORDERED: CEFTRIAXONE/SWI 1gm 1 GM/10 ML SYR IV SCH (03:00)
[2019-01-15] MEDS ORDERED: NA CHLORIDE 0.9% 1,000 ML IV SCH (05:00)
[2019-01-15] MEDS: NEBIVOLOL HCL 20 MG TABLET PO SCH ×2 (06:31→09:46)
[2019-01-15] MEDS ORDERED: ENOXAPARIN 30 MG/0.3 ML SQ SCH (09:00)
[2019-01-15] MEDS ORDERED: NEBIVOLOL HCL 20 MG TABLET PO SCH (09:00)
[2019-01-15] MEDS: INSULIN -REGULAR HUMAN 50 UNIT/0.5 ML ML SQ SCH ×4 (09:44→21:45)
[2019-01-15] MEDS: DOCUSATE NA 100 MG CAP PO SCH ×2 (09:45→21:45)
[2019-01-15] MEDS: LOSARTAN POTASSIUM 50 MG TABLET PO SCH (09:45)
[2019-01-15] MEDS: NICOTINE 21 MG/PAT TD SCH (09:47)
[2019-01-15] MEDS ORDERED: ONDANSETRON 4 MG (ODT) TAB PO PRN (10:15)
[2019-01-15] MEDS ORDERED: MAGNESIUM HYDROXIDE 8% 30 ML PO ONE (11:20)
[2019-01-15 11:28] LABS: Absolute Lymphocytes (CBC) 0.7 K/uL (0.7-4.9); Absolute Monocytes 0.6 K/uL (0.1-1.3); Basophils % 0.2 % (0-1.3); Eosinophils % 1.1 % (0-4.4); Hematocrit 24.2 % (36.0-45.0); Lymphocytes % 10.3 % (15.3-44.8); MPV 8.6 fL (7.6-11.3); Monocytes % 9.9 % (3.3-12.3); RBC Red Blood Cell Count 2.82 M/uL (3.86-4.86)
[2019-01-15 11:51] LABS: Albumin 2.6 g/dL (3.4-5.0); Bilirubin Total 0.4 mg/dL (0.2-1.0); Magnesium 2.1 mg/dL (1.8-2.4); Phosphorus 2.6 mg/dL (2.5-4.9); Potassium 4.2 mmol/L (3.5-5.1); Protein, Total 5.5 g/dL (6.4-8.2)
[2019-01-15] MEDS ORDERED: HYDRALAZINE HCL 20 MG/ML VIAL IV ONE (12:32)
--- NOTE | 2019-01-15 12:36 | P.PN ---
Subjective Date of Service: 01/15/19 Chief Complaint: Fall Subjective: Tolerating diet, Ambulating, Improving, Working w/ PT, Doing well Review of Systems 10-point ROS is otherwise unremarkable Physical Examination - Vital Signs Temperature: 98.4 F Blood Pressure: 181/77 Pulse: 80 Respirations: 18 Pulse Ox (%): 96 - Physical Exam General: Alert, In no apparent distress HEENT: Atraumatic, PERRLA, EOMI Neck: Supple, JVD not distended Respiratory: Clear to auscultation bilaterally, Normal air movement Cardiovascular: Regular rate/rhythm, Normal S1 S2 Gastrointestinal: Normal bowel sounds, No tenderness Musculoskeletal: No tenderness Integumentary: No rashes Neurological: Normal speech, Normal tone, Normal affect Lymphatics: No axilla or inguinal lymphadenopathy - Studies Medications List Reviewed: Yes Assessment And Plan - Current Problems (Diagnosis) (1) Hip fracture, left Current Visit: Yes Status: Acute Plan: Left Hip fracture after a mechanical Fall -orthopedics consulted. Appreciated recommendations at this time -S/P ORIF POD# 3 -Pain mgmt with [place] -Working with PT -Placement with CM Qualifiers: Encounter type: initial encounter Fracture type: closed Qualified Code(s) : S72.002A - Fracture of unspecified part of neck of left femur, initial encounter for closed fracture (2) HTN (hypertension) Current Visit: Yes Status: Chronic Plan: -Restart Home medication Qualifiers: Hypertension type: essential hypertension Qualified Code(s): I10 - Essential (primary) hypertension (3) Diabetes Current Visit: Yes Status: Chronic Plan: Insulin sliding scale for now Qualifiers: Diabetes mellitus type: type 2 Diabetes mellitus senior living insulin use: without senior living use Diabetes mellitus complication status: without complication Qualified Code(s): E11.9 - Type 2 diabetes mellitus without complications (4) Hyperlipidemia Current Visit: Yes Status: Chronic Plan: Restart Home medication Qualifiers: Hyperlipidemia type: mixed hyperlipidemia Qualified Code(s): E78.2 - Mixed hyperlipidemia Discharge Plan: Other Plan to discharge in: Greater than 2 days - Code Status/Comfort Care Code Status Assessed: Yes Critical Care: No
--- NOTE | 2019-01-15 13:35 | CON ---
Date of Consultation: 01/15/2019 Reason For Consultation: New-onset atrial fibrillation. History Of Present Illness: Ms. Sanchez is 78, has a history of diabetes, hypertension, dyslipidemia. She had a left hip surgery on 01/12/2019, which was uneventful. She was staying in the hospital for rehabilitation and physical therapy. She has a hemoglobin of 8.5, glucose of 194, creatinine of 1.7 . She went into atrial fibrillation. She received her home medication of Bystolic and one dose of d igoxin 0.5 mg, and she is back in normal sinus rhythm. No symptoms with her atrial fibrillation. Allergies: NONE. Review of Systems: Negative. Social History: Negative. Family History: Negative. Medications: At home include Lipitor, glimepiride, losartan, and Bystolic. Physical Examination: General: Ms. Sanchez is in no acute distress. Alert and oriented x3. Hard of hearing. Vital Signs: She was in sinus rhythm this morning. Afebrile. HEENT: Negative. Neck: Supple without any bruit, lymphadenopathy, JVD, or thyromegaly. Chest: Clear to auscultation and percussion. Cardiac: Regular rhythm and rate without any murmurs, gallops, or rubs. Abdomen: Benign. Extremities: No clubbing, cyanosis, or edema. Diagnostic Data: As stated earlier. Impression And Plan: 1.Paroxysmal atrial fibrillation, that has resolved already after digoxin and Bystolic. No symptoms with it. 2.Status post left hip surgery. 3.Diabetes. 4.Hypertension. 5.Dyslipidemia, well controlled. I will personally continue the Bystolic. If she goes back into atrial fibrillation, I think we can s witch her to [place]. We can give her digoxin as needed. There is an echocardiogram pending. At t his point with her hemoglobin being 8.5 and only having one episode, I will continue Lovenox and avoi d anticoagulation. If the echocardiogram shows anything significant, we may have to discuss her anti coagulation further down the road. DARION/LINDSAY Voice ID: [id number] Report ID: [id number]
[2019-01-15] MEDS ORDERED: ONDANSETRON 4 MG/2 ML VIAL IV PRN (19:23)
[2019-01-15] MEDS: ATORVASTATIN 10 MG TAB PO SCH (21:45)
[2019-01-16] MEDS ORDERED: CEFTRIAXONE 1 GM/NS 50 ML 1 GM/50 ML BAG IV SCH (02:00)
[2019-01-16] MEDS: CEFTRIAXONE/SWI 1gm 1 GM/10 ML SYR IV SCH (05:36)
--- NOTE | 2019-01-16 06:29 | EKG ---
Test Date: 2019-01-15 Test Time: 10:12:33 Tile Sprayer: [facility]I MEASUREMENT RESULTS: Intervals: Rate: 80 IA: 150 QRSD: 86 QT: 348 QTc: 401 [place]: P: 67 IA: 150 QRS: 5 T: 87 INTERPRETIVE STATEMENTS: Normal sinus rhythm Normal ECG Compared to ECG 01/11/2019 16:40:11 Atrial abnormality no longer present Myocardial infarct finding no longer present Electronically Signed On 01-16-19 06:28:21 DIRECTOR ADULT by Glen Perez
[2019-01-16] MEDS: INSULIN -REGULAR HUMAN 50 UNIT/0.5 ML ML SQ SCH ×4 (07:30→21:50)
--- NOTE | 2019-01-16 09:15 | EKG ---
Test Date: 2019-01-14 Test Time: 22:40:07 Vice President Of Contracts: GIACOMO MEASUREMENT RESULTS: Intervals: Rate: 120 [place]: QRSD: 82 QT: 324 QTc: 457 [place]: P: OK: QRS: -18 T: 110 INTERPRETIVE STATEMENTS: Atrial fibrillation with rapid ventricular response Septal infarct, age undetermined ST & T wave abnormality, consider lateral ischemia or digitalis effect Abnormal ECG Compared to ECG 01/11/2019 16:40:11 ST (T wave) deviation now present Possible ischemia now present Sinus rhythm no longer present Atrial abnormality no longer present Myocardial infarct finding still present Electronically Signed On 01-16-19 09:14:26 PROGRAM COORDINATOR FOR [employer] by Glen Perez
[2019-01-16] MEDS: NEBIVOLOL HCL 20 MG TABLET PO SCH (09:19)
[2019-01-16] MEDS: NICOTINE 21 MG/PAT TD SCH (09:19)
[2019-01-16] MEDS: LOSARTAN POTASSIUM 50 MG TABLET PO SCH ×2 (09:20→09:36)
[2019-01-16] MEDS: ENOXAPARIN 40 MG/0.4 ML SQ SCH (09:20)
[2019-01-16] MEDS: DOCUSATE NA 100 MG CAP PO SCH ×2 (09:20→21:48)
--- NOTE | 2019-01-16 10:11 | P.PN ---
Subjective Date of Service: 01/16/19 Chief Complaint: Fall Patient seen and examined at bedside with RN. Chart reviewed. Case discussed with orthopedics at this time. Case also discussed with family members at bedside during grand rounds. Currently patient is doing well working with physical therapy. Nausea and vomiting has resolved. Patient is passing flatulence at this time. No bowel movement yet. Pending placement at this time Review of Systems 10-point ROS is otherwise unremarkable Physical Examination - Vital Signs Temperature: 97.8 F Blood Pressure: 188/79 Pulse: 68 Respirations: 16 Pulse Ox (%): 94 - Physical Exam General: Alert, In no apparent distress HEENT: Atraumatic, PERRLA, EOMI Neck: Supple, JVD not distended Respiratory: Clear to auscultation bilaterally, Normal air movement Cardiovascular: Regular rate/rhythm, Normal S1 S2 Gastrointestinal: Normal bowel sounds, No tenderness Musculoskeletal: No tenderness Integumentary: No rashes Neurological: Normal speech, Normal tone, Normal affect Lymphatics: No axilla or inguinal lymphadenopathy - Studies Medications List Reviewed: Yes Assessment And Plan - Current Problems (Diagnosis) (1) Hip fracture, left Current Visit: Yes Status: Acute Plan: Left Hip fracture after a mechanical Fall -orthopedics consulted. Appreciated recommendations at this time -S/P ORIF POD# 4 -Pain mgmt with [place] -Working with PT / OT -Placement with CM Qualifiers: Encounter type: initial encounter Fracture type: closed Qualified Code(s) : S72.002A - Fracture of unspecified part of neck of left femur, initial encounter for closed fracture (2) HTN (hypertension) Current Visit: Yes Status: Chronic Plan: -Restart Home medication Qualifiers: Hypertension type: essential hypertension Qualified Code(s): I10 - Essential (primary) hypertension (3) Diabetes Current Visit: Yes Status: Chronic Plan: Insulin sliding scale for now Qualifiers: Diabetes mellitus type: type 2 Diabetes mellitus custodial insulin use: without custodial use Diabetes mellitus complication status: without complication Qualified Code(s): E11.9 - Type 2 diabetes mellitus without complications (4) Hyperlipidemia Current Visit: Yes Status: Chronic Plan: Restart Home medication Qualifiers: Hyperlipidemia type: mixed hyperlipidemia Qualified Code(s): E78.2 - Mixed hyperlipidemia - Plan Awaiting clinical improvement at this time. Currently working with physical therapy and occupational therapy. Case management has been consulted for possible placement. Discharge Plan: Other Plan to discharge in: 48 Hours - Code Status/Comfort Care Code Status Assessed: Yes Critical Care: No
[2019-01-16] MEDS: HYDROCODONE/APAP 7.5/325 MG TAB PO PRN (10:13)
[2019-01-16] MEDS ORDERED: MAGNESIUM HYDROXIDE 8% 30 ML PO ONE (12:30)
--- NOTE | 2019-01-16 13:28 | ECHO ---
HEIGHT: 5 ft 5 in WEIGHT: 140 lb 0 oz DATE OF STUDY: 01/16/[address]: Montrell Gomez MD 2-DIMENSIONAL: YES M.MODE: YES DOPPLER: YES COLOR FLOW: YES TDS: PORTABLE: DEFINITY: BUBBLE STUDY: DIAGNOSIS: CONGESTIVE HEART FAILURE CARDIAC HISTORY: CATHERIZATION: NO SURGERY: NO PROSTHETIC VALVE: NO PACEMAKER: NO MEASUREMENTS (cm) DIASTOLIC (NORMALS) SYSTOLIC (NORMALS) IVSd 1.2 (0.6-1.2) LA Diam 3.2 (1.9-4.0) LVEF 65% LVIDd 3.8 (3.5-5.7) LVIDs 2.5 (2.0-3.5) %FS 35% LVPWd 1.3 (0.6-1.2) Ao Diam 2.7 (2.0-3.7) 2 DIMENSIONAL ASSESSMENT: RIGHT ATRIUM: NORMAL LEFT ATRIUM: DILATED RIGHT VENTRICLE: NORMAL LEFT VENTRICLE: LEFT VENTRICULAR HYPERTROPHY TRICUSPID VALVE: NORMAL MITRAL VALVE: MITRAL ANNULAR CALCIFICATION WITH CALCIFIED POSTERIOR LEAFLET PULMONIC VALVE: NORMAL AORTIC VALVE: MILD SCLEROSIS PERICARDIAL EFFUSION: NONE AORTIC ROOT: NORMAL LEFT VENTRICULAR WALL MOTION: NORMAL DOPPLER/COLOR FLOW: NO AORTIC STENOSIS. MILD AORITC REGURGITATION. MILD MITRAL REGURGITATION. MILD TRICUSPID REGURGITATION. ESTIMATED RIGHT VENTRICULAR SYSTOLIC PRESSURE 42 mmHg. MILD PULMONARY HYPERTENSION. COMMENTS: NORMAL LEFT VENTRICULAR EJECTION FRACTION. DILATED LEFT ATRIUM. LEFT VENTRICULAR HYPERTROPHY. MITRAL ANNULAR CALCIFICATION. MILD AORTIC SCLEROSIS WITH NO AORTIC STENOSIS. MILD AORITC REGURGITATION, MITRAL REGURGITATION AND TRICUSPID REGURGITATION. MILD PULMONARY HYPERTROPHY. TECHNOLOGIST: TRENA ABREU
[2019-01-16] MEDS: ATORVASTATIN 10 MG TAB PO SCH (21:48)
[2019-01-16] MEDS: HYDRALAZINE HCL 20 MG/ML VIAL IV PRN (21:55)
--- NOTE | 2019-01-16 23:35 | CON ---
Date of Consultation: 01/11/2019 History Of Present Illness: The patient is a 78-year-old patient, who was admitted to the hospital o n 01/11/2019 and the patient is admitted with a femur fracture. She was in the operating room while I was called for consultation by Dr. Woodson. The consultation was for vaginal mass. On going int o the room, I was unable to take consent from the patient for the examination because the patient was already under general anesthesia. They were trying to fixate a device that could hold up her leg fo r imaging during the surgery. So, the vaginal mass that was large was in their way to perform their procedure, hence, I was brought in for consultation. 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 She did chavarria ve a cervix. The external os was central point of the prolapse and the inferior most point. So, her POP-Q is as follows +3, +11 and +11. The genital hiatus was at least 7-8 cm moderate. Perineum was difficult to assess and the length of the vagina at least 12-13 cm. There is a severely atrophic va ginal epithelium. There was epithelialization due to exteriorization of the vaginal prolapse on a lo ng-term basis. However, there were no clear erosions seen. However, on touching the vaginal epithel ium, there was easy bleeding. The procedure could not be conducted without significant risk of vagin al epithelial laceration, so I decided to reduce the prolapse and packed the vagina. After the prolapse was gradually reduced, the patient already had a Barone catheter in place. The ent gary vagina was reduced back into the vaginal canal, interiorized and a Kerlix roll was packed into th e vagina to retain the prolapse during the surgery. Once this was done, the block engraver was given ins tructions to remove the vaginal packing. After the procedure was done, the patient could go home and follow up with me if she desires to do something to get her prolapse consulted on and manage it. I gave my feedback to Dr. Woodson. No other intervention needed at this time and no further followup needed postop, so I signed off the case. BHARAT/LINDSAY Voice ID: [id number] Report ID: [id number]
[2019-01-17] MEDS: HYDRALAZINE HCL 20 MG/ML VIAL IV PRN ×2 (05:20→21:47)
[2019-01-17] MEDS: CEFTRIAXONE/SWI 1gm 1 GM/10 ML SYR IV SCH (05:30)
[2019-01-17] MEDS: INSULIN -REGULAR HUMAN 50 UNIT/0.5 ML ML SQ SCH ×4 (07:30→21:46)
[2019-01-17] MEDS: DOCUSATE NA 100 MG CAP PO SCH ×2 (09:08→21:47)
[2019-01-17] MEDS: ENOXAPARIN 40 MG/0.4 ML SQ SCH (09:09)
[2019-01-17] MEDS: LOSARTAN POTASSIUM 50 MG TABLET PO SCH (09:09)
[2019-01-17] MEDS: NICOTINE 21 MG/PAT TD SCH (09:10)
[2019-01-17] MEDS: NEBIVOLOL HCL 20 MG TABLET PO SCH (09:10)
[2019-01-17] MEDS: AMLODIPINE 5 MG TAB PO SCH (12:32)
--- NOTE | 2019-01-17 16:49 | PN ---
Date of Progress Note: 01/17/2019 Subjective: The patient's code status is full. The patient denies any significant pain. She says t hat she is doing well overall, working with PT. Medications are reviewed. Physical Examination: Vital Signs: Temperature 97.9, heart rate 69, blood pressure 136/97, respirations 18, O2 98% on room air. General: Awake, alert, oriented x3 without any acute distress. Elderly female. CV S2. Regular rate and rhythm. Peripheral pulses present. Respiratory: Clear to auscultation bilaterally. No wheezing or stridor. Gastrointestinal: Abdomen is soft, nontender, nondistended. Positive bowel sounds. Extremities: No clubbing, cyanosis, or edema. Musculoskeletal: Left hip incision site clean, dry, intact. Laboratory Data: Glucose between 308 and 198. Urine culture growing out Klebsiella pneumoniae. Assessment/plan: A 78-year-old female with, 1.Left hip fracture, closed, initial encounter, status post mechanical fall, status post open reduct ion and internal fixation, postoperative day #5. Will continue [place] for pain control. The patient is on Lovenox for deep venous thrombosis prophylaxis. 2.Essential hypertension, stable. Will continue home medications. 3.Diabetes mellitus type 2 with long-term use of insulin with hyperglycemia. Continue sliding scale insulin and monitor Accu-Cheks. 4.Hyperlipidemia. We will continue home medication. 5.Acute blood loss anemia, likely secondary to hip fracture. The patient's hemoglobin has dropped m ore than 3 g. The patient does have some chronic anemia. 6.Acute cystitis without hematuria secondary to Klebsiella pneumoniae. Will switch to oral antibiot ics. Plan: Consult Occupational Therapy. Discharge to rehab once accepted. /LINDSAY Voice ID: [id number] Report ID: [id number]
[2019-01-17] MEDS: ATORVASTATIN 10 MG TAB PO SCH (21:47)
[2019-01-18] MEDS: HYDRALAZINE HCL 20 MG/ML VIAL IV PRN (06:01)
[2019-01-18] MEDS: CEFTRIAXONE/SWI 1gm 1 GM/10 ML SYR IV SCH (06:01)
[2019-01-18] MEDS: AMLODIPINE 5 MG TAB PO SCH ×2 (09:00→09:09)
[2019-01-18] MEDS: INSULIN -REGULAR HUMAN 50 UNIT/0.5 ML ML SQ SCH ×4 (09:06→21:08)
[2019-01-18] MEDS: NICOTINE 21 MG/PAT TD SCH (09:07)
[2019-01-18] MEDS: ENOXAPARIN 40 MG/0.4 ML SQ SCH (09:07)
[2019-01-18] MEDS: NEBIVOLOL HCL 20 MG TABLET PO SCH (09:08)
[2019-01-18] MEDS: LOSARTAN POTASSIUM 50 MG TABLET PO SCH (09:09)
[2019-01-18] MEDS: DOCUSATE NA 100 MG CAP PO SCH ×2 (09:09→21:08)
[2019-01-18] MEDS ORDERED: TRAMADOL HCL 50 MG TAB PO PRN (11:09)
--- NOTE | 2019-01-18 17:50 | PN ---
Subjective: The patient is seen and examined. Chart reviewed and case discussed with RN. Family at bedside. Treatment plan explained. All questions answered. Medications: List reviewed. Physical Examination: Vital Signs: Temperature 98.2, heart rate 66, blood pressure 119/57, respirations 18, O2 saturation 98% on room air. General: Awake, alert, oriented x3. Elderly female. CV: S1, S2. Regular rate and rhythm. Peripheral pulses present. Respiratory: Moving air well bilaterally. No wheezing or stridor. Gastrointestinal: Abdomen is soft, nontender, nondistended. Positive bowel sounds. Extremities: No clubbing, cyanosis, or edema. Neuro: Nonfocal. Musculoskeletal: Left hip incision site clean, dry, and intact. Laboratory Data: Pending. Urine culture growing out Klebsiella pneumoniae. Assessment And Plan: 1. Left hip fracture, closed, initial encounter, status post mechanical fall, now with open reduction and internal fixation, postop postoperative day #6. We will continue pain control and switch to tramadol. Discontinue Energy. Family requesting less potent narcotic. We will continue Lovenox for deep venous thrombosis prophylaxis. 2. Essential hypertension, stable. 3. Vaginal prolapse. The patient to follow up with PUBLIC WELFARE DIRECTOR outpatient, Dr. Castañeda. 4. Diabetes mellitus type 2 with long-term use of insulin with hyperglycemia. We will continue sliding scale insulin and monitor Accu-Cheks. 5. Hyperlipidemia. Continue statin. 6. Acute blood loss anemia secondary to hip fracture. We will continue to monitor hemoglobin, transfuse as needed for hemoglobin less than 7. 7. Acute cystitis without hematuria secondary to Klebsiella pneumoniae. Switch to oral antibiotics. 8. Acute on chronic kideny disease stage II. Adjust losartan dose. Monitor Creatnine. Avoid NSAIDs. Plan: The patient was declined by insurance for rehab placement. Will call for [id number] and appeals process. In the meantime, family given other options including residential facility or home with home health. /LINDSAY Voice ID: [id number] Report ID: [id number] MTDRan
[2019-01-18] MEDS: CEFUROXIME 250 MG TAB PO SCH (21:07)
[2019-01-18] MEDS: ATORVASTATIN 10 MG TAB PO SCH (21:08)
[2019-01-19] MEDS: HYDRALAZINE HCL 20 MG/ML VIAL IV PRN
[2019-01-19 01:41] VITALS: O2SAT 98
[2019-01-19 06:55] LABS: Absolute Lymphocytes (CBC) 0.9 K/uL (0.7-4.9); Absolute Monocytes 0.8 K/uL (0.1-1.3); Absolute Neutrophil 4.2 K/uL (1.8-8.0); Basophils % 0.5 % (0-1.3); Eosinophils % 2.4 % (0-4.4); Hematocrit 25.5 % (36.0-45.0); Lymphocytes % 14.4 % (15.3-44.8); MPV 8.1 fL (7.6-11.3); Monocytes % 12.8 % (3.3-12.3); RBC Red Blood Cell Count 2.96 M/uL (3.86-4.86)
[2019-01-19] MEDS: INSULIN -REGULAR HUMAN 50 UNIT/0.5 ML ML SQ SCH (07:30)
[2019-01-19] MEDS: ENOXAPARIN 40 MG/0.4 ML SQ SCH (08:33)
[2019-01-19] MEDS: NEBIVOLOL HCL 20 MG TABLET PO SCH (08:34)
[2019-01-19] MEDS: CEFUROXIME 250 MG TAB PO SCH (08:34)
[2019-01-19] MEDS: NICOTINE 21 MG/PAT TD SCH (08:35)
[2019-01-19] MEDS: DOCUSATE NA 100 MG CAP PO SCH (08:35)
[2019-01-19] MEDS: LOSARTAN POTASSIUM 50 MG TABLET PO SCH (08:36)
[2019-01-19 09:01] LABS: Blood Morphology Comment NOT SEEN (NOT SEEN); Platelet Estimate ADEQ
[2019-01-19] MEDS ORDERED: INSULIN -REGULAR HUMAN 50 UNIT/0.5 ML ML SQ SCH (10:32)
[2019-01-19 14:43] VITALS: BP 124/58; TEMP 98.8
[2019-01-19] MEDS ORDERED: AMLODIPINE 5 MG TAB PO SCH (21:00)
--- NOTE | 2019-01-20 05:34 | DS ---
Date of Discharge: 01/19/2019 Trailer Chief: 1.Dr. Valentina Castañeda with BANK CLERK. 2.Dr. Usman Britt with Cardiology. 3.Dr. Bob Woodson with Orthopedic Surgery. Procedures: On 01/12/2019, left hip closed reduction with intramedullary cora fixation. Admitting Diagnoses: 1.Left hip fracture, initial encounter, status post mechanical fall, intertrochanteric. 2.Essential hypertension. 3.Diabetes mellitus type 2 without long-term use of insulin with hyperglycemia. 4.Mixed hyperlipidemia. Discharge Diagnoses: 1.Left hip fracture, closed, initial encounter, intertrochanteric, status post mechanical fall, stat us post open reduction and internal fixation. 2.Essential hypertension, stable. 3.Vaginal prolapse. The patient follows up with Dr. Castañeda. 4.Diabetes mellitus type 2 without long-term use of insulin with hyperglycemia. 5.Hyperlipidemia, mixed, continue statin. 6.Acute blood loss anemia secondary to hip fracture. 7.Acute cystitis without hematuria secondary to Klebsiella pneumonia. 8.Sfrhw-qz-ltpjmqp kidney disease stage 2. Hospital Course: The patient is a 78-year-old female with multiple comorbid conditions including chris betes, hypertension, hyperlipidemia, who was brought in to the ER after a mechanical fall. The patie nt was found to have left-sided hip pain, and hip fracture. The patient was started on IV fluids and pain medications. She was seen by Dr. Woodson with Orthopedics, who recommended ORIF. The patien t tolerated the procedure well. She did develop some postoperative anemia; however, did not require any blood transfusion. The patient was started on Lovenox for deep venous thrombosis prophylaxis. T he patient did work well with physical therapy. She was also found to have Klebsiella pneumoniae and UTI. She was treated with Rocephin, and was switched over to oral antibiotics. The patient did hav e wyiblcptk-wl-qsudjyo diabetes. Her insulin scale had to be adjusted. She also had vaginal prolaps e, which was assessed by Dr. Castañeda during the hip surgery. She was able to reduce the prolapse, a nd the patient will need outpatient followup with her for surgical evaluation and correction if that is something that she desires. The patient did have cardiac clearance from Dr. Britt. EF on her e chocardiogram was 55%. She did have some left ventricular hypertrophy and mild pulmonary hypertensio n. Overall, the patient did well. She was working with Physical Therapy and was referred to [facility]. Initially, she was denied, however, appeal was made and after oghn-pp-eekr with the physic min, the patient was approved to go to inpatient rehab. The patient was then discharged to rehab in a stable condition. Her kidney function improved. She did have mild ziqtg-nh-srjcape kidney injury stage II, borderline stage III. Medications: As per medication reconciliation list. It should be noted the patient's blood pressure medications had to be adjusted due to jxtlijeri-dj-jzeabli blood pressure, and labile blood pressure while in the hospital. Followup: Follow up with primary care physician in 2 to 3 days. Follow up with Orthopedic surgeon, Dr. Woodson, in 1 week for wound check. Return to ER for worsening condition. Diet: Diabetic diet. Activity: As per rehab. Physical Examination: General: Awake, alert, oriented x3. Elderly female. CV: S1, S2. Peripheral pulses present. Respiratory: Moving air well bilaterally. No wheezing. Gastrointestinal: Abdomen is soft, nontender, nondistended. Positive bowel sounds. Extremities: No clubbing, cyanosis, edema. Musculoskeletal: Left hip incision site clean, dry, intact. Neurologic: Nonfocal. Total time spent discharging the patient was 35 minutes. [place] Voice ID: [id number] Report ID: [id number]
== END 2019-01-19 16:32 | DRG 481 ==
LOC: ER 13:37 → ERHOLD 16:20 → 2ND 20:13
PROVIDERS: ADMIT Family Medicine; ATTEND Family Medicine
PROC: 0QS736Z Reposition Left Upper Femur with Intramedullary Internal Fixation Device, Percutaneous Approach (ICD-10-PCS; principal; 2019-01-12 11:30)
DX: S72.142A Displaced intertrochanteric fracture of left femur, initial encounter for closed fracture (principal); D62 Acute posthemorrhagic anemia; N30.00 Acute cystitis without hematuria; N17.9 Acute kidney failure, unspecified; W01.0XXA Fall on same level from slipping, tripping and stumbling without subsequent striking against object, initial encounter; Y93.01 Activity, walking, marching and hiking; Y92.014 Private driveway to single-family (private) house as the place of occurrence of the external cause; E78.2 Mixed hyperlipidemia; F17.210 Nicotine dependence, cigarettes, uncomplicated; I48.0 Paroxysmal atrial fibrillation; N81.4 Uterovaginal prolapse, unspecified; B96.1 Klebsiella pneumoniae [K. pneumoniae] as the cause of diseases classified elsewhere; E11.65 Type 2 diabetes mellitus with hyperglycemia; I12.9 Hypertensive chronic kidney disease with stage 1 through stage 4 chronic kidney disease, or unspecified chronic kidney disease; E11.22 Type 2 diabetes mellitus with diabetic chronic kidney disease; N18.2 Chronic kidney disease, stage 2 (mild); I51.7 Cardiomegaly; I27.20 Pulmonary hypertension, unspecified
CPT/HCPCS: 36415; 51702; 71045; 72170; 73530; 80048; 80053; 81003; 81015; 82962; 83036; 83735; 84100; 85025; 85610; 85730; 86850; 86900; 86901; 87077; 87086; 87088; 87186; 93005; 93306; 96374; 96375; 97110; 97112; 97116; 97163; 97166; 97530; 99285; J0360; J0690; J0696; J1160; J1170; J1650; J2250; J2270; J2405; J2704; J3010; J3475; J7030

== ENCOUNTER 2019-01-17 09:55 | Inpatient (IN) | payer OTHER ==
--- NOTE | 2019-01-19 13:41 | R.PREADM ---
SCREENING DATE AND TIME 01/19/2019 11:23 (SUPERVISOR BLEACH PLANT) ANTICIPATED REHAB ADMISSION DATE 01/21/2019 REFERRING FACILITY [facility] REFERRAL DATE AND TIME 01/19/2019 11:23 (SUPERVISOR BLEACH PLANT) REFERRAL ROOM# 232 ACUTE ADMIT DATE 01/11/2019 Previous Rehabilitation(s): No. REFERRING PHYSICIAN Yuliana Taylor REHAB FACILITY [facility] CLINICAL LIAISON Ines Coronado PHYSICIAN REVIEWER Dr. Lamont Mendez M.D. MR# [id number] NAME LUISA SANCHEZ ADDRESS [address] [place] [address] PHONE [facility] [id number] DATE OF 1940 AGE 78 SSN# [id number] GENDER female MARITAL STATUS RACE white ADMIT FROM 02 - [facility] PRE-HOSPITAL LIVING SETTING 01 - Home (private home/apt. board/care, assisted living, [place] [facility], transitional living) HOME TYPE AND DETAILS Type of home: single family house # of levels in the residence: 1 # of steps within the residence: 0 # of steps to enter the residence: 1 PRE-HOSPITAL LIVING WITH Alone FAMILY SUPPORT Yes PRIMARY FAMILY CONTACT NAME ERICK RAMIREZ PRIMARY FAMILY CONTACT PHONE PRIMARY FAMILY CONTACT RELATIONSHIP Daughter PHONE PRIMARY FAMILY CONTACT ON ADM.? no IS PRIMARY FAMILY CONTACT AUTH. REP.? no 1ST EMERGENCY CONTACT ERICK RAMIREZ 1ST CONTACT PHONE 1ST CONTACT RELATIONSHIP Daughter PHONE 1ST CONTACT ON ADM. no IS 1ST CONTACT AUTH. REP.? no PHONE 2ND CONTACT ON ADM.? no PATIENT EMPLOYMENT STATUS Retired (for age) PATIENT EMPLOYER No Employer PAYOR INFORMATION: 1ST PAYOR NAME MEDICARE [employer] 1ST PAYOR INJURY/ILLNESS DUE TO ACCIDENT? No ANOTHER CONSTITUTION PARTY RESPONSIBLE? No PRIMARY REHAB/ACUTE DIAGNOSIS: LEFT HIP INTERTROCHANTERIC FRACTURE ONSET DATE 01/11/2019 REHAB IMPAIRMENT CATEGORY (KEVON): 07 Fracture of LE (FracLE) MEETS 60% rule AFFECTED EXTREMITIES: LLE PRIMARY DIAGNOSIS-RELATED SURGERIES: LEFT HIP CLOSED REDUCTION IM YOKASTA FIXATION - performed by Ann VALADEZ on 01/12/2019 COMORBID REHAB/ACUTE DIAGNOSES: - Tier 3 Type 2 diabetes mellitus with diabetic neuropathy, unspecified (E11.40) - N/A HYPERTENSION HYPERLIPIDEMIA PROLAPSE UTERUS INTERVENTIONS: - Hypertension Fluid management Medications VS RISK FOR COMPLICATIONS: - Hypertension CVA Hypotension AK TIA SUMMARY OF ACUTE HOSPITALIZATION: Pt. is a 78 yo Right-handed white female. Her impairment category is Orthopaedic Disorders 08 - Unilateral Hip Fracture (08.11). Pre-morbidly, Pt. was independent/mod-I in Transfers Control, Communication, Social Cognition, Self-C are, Locomotion, and Sphincter Control; and she had good Sphincter Control. Currently, she has deficits of Safety Awareness, Transfers Control, Balance, Locomotion, Endurance, a nd Self-Care. Pt. is now referred to [facility] for acute in-patient rehabilitation in order to maximize patient's functional independence in activities of daily living, strength, ROM, and mobi lity. Patient has realistic goal of being discharged at assistance level 6-Raquel to reside at Home with Fam susy/Relatives. Luisa Sanchez is a 78 year old female that lives in a single ramón home with a ramp. Patient is independent with ADL doing laundry and cooking at home and can still drive. On 01/11/2019, she fell while trying to bead picker her newspaper and was admitted to [facility] and treated. She is now medically stable but in need of 24-hour nursing, doctor supervision and oversite while receiving The patient is reasonably expected to participate in 3hours of therapy a day/15 hours per week and receive care with an intensive interdisciplinary approach. PAST MEDICAL HISTORY HYPERLIPIDEMIA HYPERTENSION PROLAPSE UTERUS Type 2 diabetes mellitus with diabetic neuropathy, unspecified (E11.40) MEDICATION ALLERGIES: No Known Drug Allergies (NKDA) ENVIRONMENTAL ALLERGIES: None Known - Substance Allergies None Known - Other Allergies None Known CODE STATUS: Full code WEIGHT/HEIGHT/BMI: WEIGHT 140 lbs HEIGHT 5' 5" BMI 23.3 DIET: - Diet Type Regular - Diet - Solid Texture Regular - Diet - Liquid Texture Regular - Tube Feed N/A SKIN DIAGRAM: Incision on Left upper leg; extent - small; stage - NS(Not Stageable). Treatment - Per Physician's Or ders. REVIEW OF SYSTEMS: - Gen Alert and awake Lying in bed No apparent distress Oriented to: person, time, and place - Vital Signs Temperature: 97.4 F SBP/DBP: 122/48 Pulse: 64 Resp: 16 Vital signs stable, afebrile - CVS RRR VITAL SIGNS Temperature: 97.4 F SBP/DBP: 122/48 Pulse: 64 Resp: 16 Vital signs stable, afebrile CURRENT SPHINCTER CONTROL: Pre-hospital bladder status: continent # of bladder accidents in the last 7 days prior to screenin Pre-hospital bowel status: continent # of bowel accidents in the last 7 days prior to screenin Last Bowel Movement Date: 01/17/2019 DETAILED CURRENT FUNCTIONAL STATUS: - Bladder accident frequency: Ind - No accidents in the past 7 days - Bowel accident frequency: Ind - No accidents in the past 7 days - Walking score based on distance walked: 2(5149ft) - Wheelchair score based on distance traveled: 0(N/A) FUNCTIONAL STATUS: - Self-Care A. Eating Ind Raquel B. Grooming Ind sup C. Bathing Ind sup D. Dressing - Upper Ind sup E. Dressing - Lower Ind Dep F. Toileting Ind maxA - Sphincter Control G: Bladder control Ind Ind H: Bowel control Ind Ind - Transfers Control I. Bed/Chair/Wheelchair Ind CGA J. Toilet Ind CGA K. Tub/Shower Ind ADNO - Locomotion L. Walk/Wheelchair (C) Ind Salazar L. Walk/Wheelchair (W) Ind Salazar M. Stairs Ind ADNO - Communication N. Comprehension (B) Ind Ind O. Expression (B) Ind Ind - Social Cognition P. Social Interaction Ind Ind Q. Problem Solving Ind Ind R. Memory Ind Ind - Endurance Fair - Balance Fair - Safety Awareness Fair CURRENT FUNC. DEFICITS: Safety Awareness, Transfers Control, Balance, Locomotion, Endurance, and Self-Care THERAPY NOTES FROM ACUTE CARE: Attached. SPECIAL NEEDS: - Safety Concerns Skin breakdown precautions needed due to skin breakdown risk PRECAUTIONS: - Posterior Hip Precaution No adduction across midline No external rotation No hip flexion >90 degrees No internal rotation No wheel chair propulsion - Weight Bearing Precaution TTWB left LE PATIENT NEEDS ACTIVE AND ONGOING THERAPEUTIC INTERVENTION OF MULTIPLE THERAPY DISCIPLINES, INCLUDING: - Occupational Therapy Evaluate and Treat. - Physical Therapy Evaluate and Treat. PATIENT NEEDS CLOSE MEDICAL SUPERVISION BY A REHABILITATION PHYSICIAN FOR: Bowel and Bladder Management Coordination of Treatment Team Diabetes Management Medical and Co-Morbidity Management Wound Care Pain Management DVT Management PATIENT REQUIRES 24X7 REHAB NURSING FOR MEDICAL AND FUNCTIONAL MGT. OF THE FOLLOWING DEFICITS: ADL's Ambulation Bowel and Bladder Management Communication Disease Management Medication Management Patient/Family Education Providing Safe Environment Skin Integrity Transfers Pain Management PATIENT REQUIRES INTENSIVE, COORDINATED INTERDISCIPLINARY APPROACH TO REHAB: Arranging Home Equipment/Services Discharge Planning Family Intervention/Training Histology Supervisor/Case Management PATIENT REHAB POTENTIAL: Expected level of measurable improvement will be of a practical value to patient's functional capacit y or adaptations to impairments Has a viable Discharge Plan Medically appropriate; condition is sufficiently stable to participate in intensive rehab program Patient is able and expected to receive 3 hours of individualized therapy daily on at least 5 of ever y 7 days Patient's prognosis for significant practical improvement within a reasonable period of time appears Good DISCHARGE PLAN: - Estimated Length of Stay (days) 14. - Consensus on plan Discharge plan has been discussed with primary caregiver. Patient/Family is in agreement with the nba n. Primary caregiver is in agreement with the plan. - Patient/Family Goals Return home with assistance. - Planned Living Setting Upon Discharge Home, to live with Family/Relatives. RECOMMENDED CARE LEVEL: IRF RECOMMENDATION DETAILS: Recommended Admission to Comprehensive Rehabilitation Program to Increase Functional [place] SCREENER'S COMPLETENESS CONFIRMATION: - Screening Confirmation The patient data collection on this preadmission screening form is finished PHYSICIANS REVIEW AND ADMISSION DETERMINATION Admit - Based on my review of the Pre-Admission Screening results, in my medical judgment and experie nce, I concur with the findings and recommend admission to [facility], as this patient requires an IRF level of care. SIGNATURE PANEL: Clinical Liaison - [electronically] signed by Ines Coronado on 01/19/2019 at 12:38 (SUPERVISOR [employer]ACH [employer]ANT) Physician Reviewer - [electronically] signed by Dr. Lamont Mendez M.D. on 01/19/2019 at 13:40 (SUPERVISOR [employer]ANT )
[2019-01-19] MEDS ORDERED: D50W 25 GM/50 ML SYRINGE IV PRN (17:11)
[2019-01-19] MEDS ORDERED: GLUCAGON 1 MG/VIAL IM PRN (17:11)
[2019-01-19 17:29] VITALS: BMI 23.3
[2019-01-19] MEDS ORDERED: HYDROCODONE/APAP 5/325 MG TAB PO PRN (17:34)
[2019-01-19] MEDS ORDERED: DOCUSATE NA/SENNA CONC 1 TAB PO PRN (17:34)
[2019-01-19] MEDS ORDERED: NICOTINE 21 MG/PAT TD SCH (18:30)
[2019-01-19] MEDS ORDERED: ENOXAPARIN 40 MG/0.4 ML SQ SCH (18:30)
[2019-01-19] MEDS: DOCUSATE NA 100 MG CAP PO SCH (20:00)
[2019-01-19] MEDS: GABAPENTIN 100 MG CAP PO SCH (20:20)
[2019-01-19] MEDS: CEFUROXIME 250 MG TAB PO SCH (20:20)
[2019-01-19] MEDS: ATORVASTATIN 10 MG TAB PO SCH (20:20)
[2019-01-19] MEDS: INSULIN -REGULAR HUMAN 50 UNIT/0.5 ML ML SQ SCH (21:45)
--- NOTE | 2019-01-20 01:49 | FAST ---
SHIFT START DATE/TIME: 01/19/2019 19:00 (OILER BANDER) SHIFT END DATE/TIME: 01/20/2019 07:00 (OILER BANDER) NAME VENESSA NUNO DATE OF : 1940 DATE OF ADMISSION: 01/19/2019 16:37 (OILER BANDER) PHONE: AGE: 78 SSN# [id number] GENDER: Female ENCOUNTER PHYSICIAN: Dr. Lamont Mendez M.D. ADMISSION DIAGNOSIS: - Orthopaedic Disorders 08 - Unilateral Hip Fracture (08.) LEFT HIP INTERTROCHANTERIC FRACTURE. EATING: Activity did not occur on this shift EATING - SCORE: 0-UNK GROOMING: Oral care Wash, rinse, and dry hands GROOMING - STEP 1: Does the patient require the assistance of a person or device, or need extra time when grooming? Yes. GROOMING - STEP 2: Does the patient require the assistance of a helper? Yes. GROOMING - STEP 3: How much assistance does the patient require from the helper? Only prior equipment preparation/set up from the helper GROOMING - SCORE: 5-SUP BATHING: Activity did not occur on this shift BATHING - SCORE: 0-UNK DRESSING - UPPER BODY: Patient is not dressing in public clothing ARTICLES SCORE Total number of steps: 0 DRESSING - UPPER BODY - SCORE: 0-UNK DRESSING - LOWER BODY: Patient is not dressing in public clothing ARTICLES SCORE Total number of steps: 0 DRESSING - LOWER BODY - SCORE: 0-UNK TOILETING: TOILETING - STEP 1: Does the patient require the assistance of a person or device, or need extra time with toileting? Yes . TOILETING - STEP 2: Does the patient require the assistance of a helper? Yes. TOILETING - STEP 3: How much assistance does the patient require from the helper? Hands-on assistance from the helper TOILETING - STEP 4: Of the 3 tasks: 1) Adjusting clothing prior to use, 2) Cleansing of perineal area, 3) Adjusting clot jonatan after use; How many tasks does the patient perform WITHOUT assistance of the helper? Two tasks TOILETING - SCORE: 3-MOD BLADDER MANAGEMENT: BLADDER MANAGEMENT - STEP 1: Does the patient control the bladder completely and intentionally without equipment or devices or med ications, and is always continent? No. BLADDER MANAGEMENT - STEP 2: Does the patient require the assistance of a helper? Yes. BLADDER MANAGEMENT - STEP 3: How much assistance does the patient require from the helper? Only supervision, stand-by, cuing, or c oaxing BLADDER MANAGEMENT - SCORE: 5-SUP BOWEL MANAGEMENT: BOWEL MANAGEMENT - STEP 1: Does the patient control bowels completely and intentionally without equipment devices or medications AND is always continent? No. BOWEL MANAGEMENT - STEP 2: Does the patient require the assistance of a helper? No, patient requires medication for control such as stool softeners, suppositories, laxatives, enemas, or OTC medications BOWEL MANAGEMENT - SCORE: 6-ABIGAIL TRANSFERS: BED, CHAIR, WHEELCHAIR: TRANSFERS: BED, CHAIR, WHEELCHAIR - STEP 1: Does the patient require assistance of a person or device, or need extra time with bed, chair, or whe elchair transfers? Yes. TRANSFERS: BED, CHAIR, WHEELCHAIR - STEP 2: Does the patient require the assistance of a helper? Yes. TRANSFERS: BED, CHAIR, WHEELCHAIR - STEP 3: How much assistance does the patient require from the helper? Lifting of the legs TRANSFERS: BED, CHAIR, WHEELCHAIR - STEP 4: How many legs does the patient require the helper to lift? both legs TRANSFERS: BED, CHAIR, WHEELCHAIR - SCORE: 3-MOD TRANSFERS: TOILET: TRANSFERS: TOILET - STEP 1: Does the patient require the assistance of a person or device, or need extra time with toilet transfe rs? Yes. TRANSFERS: TOILET - STEP 2: Does the patient require the assistance of a helper? Yes. TRANSFERS: TOILET - STEP 3: How much assistance does the patient require from the helper? Patient performs half or more of the tr ansferring tasks TRANSFERS: TOILET - STEP 4: Does the patient need only incidental help such as contact guard or steadying during toilet transfer? Yes. TRANSFERS: TOILET - SCORE: 4-MIN TRANSFERS: SHOWER: Activity did not occur on this shift TRANSFERS: SHOWER - SCORE: 0-UNK TRANSFERS: TUB: Activity did not occur on this shift TRANSFERS: TUB - SCORE: 0-UNK LOCOMOTION: WALK: Activity did not occur on this shift LOCOMOTION: WALK - SCORE: 0-UNK LOCOMOTION: WHEELCHAIR: Activity did not occur on this shift LOCOMOTION: WHEELCHAIR - SCORE: 0-UNK COMPREHENSION: COMPREHENSION: TYPE: Both COMPREHENSION - STEP 1: Does the patient require help from a person or device, or need extra time to understand complex and a bstract ideas (such as current events, finances, discharge planning, medical issues, relationships, e tc)? Yes. COMPREHENSION - STEP 2: Does the patient require help to understand questions or statements about basic needs or ideas (such as hunger, thirst, sleep, safety, daily schedule, room location, or discomfort) half or more of the t yessica? No. COMPREHENSION - STEP 3: How often does the patient need help to understand directions and conversation about basic needs? 10% - 24% of the time COMPREHENSION - SCORE: 4-MIN EXPRESSION EXPRESSION: TYPE: Both EXPRESSION - STEP 1: Does the patient require help from a person or device, or need extra time expressing complex and abst ract ideas (such as current events, finances, discharge planning, medical issues, relationships, etc) ? No. EXPRESSION - STEP 2: Does the patient need extra time, require an assistive device (such as augmentive communication syste m or a communication board), OR does s/he have mild difficulty expressing complex and abstract ideas (including mild dysarthria or mild word-find problems)? No. EXPRESSION - SCORE: 7-IND SOCIAL INTERACTION: SOCIAL INTERACTION - STEP 1: Does the patient require a helper to interact with others in social and therapeutic situations? No. SOCIAL INTERACTION - STEP 2: Does the patient need extra time in social situations, OR does s/he interact with staff, other patien ts, and family members ONLY in structured environments, OR does s/he require medication for social in teraction? Yes, patient needs extra time SOCIAL INTERACTION - SCORE: 6-ABIGAIL PROBLEM SOLVING: PROBLEM SOLVING - STEP 1: Does the patient need help from a person or device, or need extra time to solve complex problems such as managing a checking account or confronting interpersonal problems? No. PROBLEM SOLVING - STEP 2: Does the patient require extra time to make decisions or solve problems, OR does s/he have slight dif ficulty reading, initiating, or self-correcting in unfamiliar situations? Yes, patient needs extra ti me. PROBLEM SOLVING - SCORE: 6-ABIGAIL MEMORY: MEMORY - STEP 1: Does the patient need help from a person or device, or need extra time to remember frequently encount ered people, daily routines, and executing requests? No. MEMORY - STEP 2: Does the patient have slight difficulty recognizing frequently encountered people, daily routines, or executing requests without the need for repetition or using self-initiated or environmental cues to remember? Yes. MEMORY - SCORE: 6-ABIGAIL SIGNATURE PANEL: The following modified sections: Eating - Score, Grooming - Score, Dressing - Upper Body - Score, Darian ssing - Lower Body - Score, Toileting - Score, Bladder Management - Score, Bowel Management - Score, Transfers: Bed, Chair, Wheelchair - Score, Transfers: Toilet - Score, Transfers: Shower - Score, Puentes sfers: Tub - Score, Locomotion: Walk - Score, Locomotion: Wheelchair - Score, Comprehension - Score, Expression - Score, Social Interaction - Score, Problem Solving - Score, Memory - Score were [electro nically] signed by Tomasa Yo CNA on WedJan 20 2019 01:48:37 GMT-0600 (Central Standard Time)
[2019-01-20 06:25] LABS: Absolute Neutrophil 5.9 K/uL (1.8-8.0); Basophils % 0.5 % (0-1.3); Eosinophils % 1.9 % (0-4.4); Hematocrit 25.2 % (36.0-45.0); Lymphocytes % 12.3 % (15.3-44.8); Monocytes % 12.5 % (3.3-12.3); RBC Red Blood Cell Count 2.92 M/uL (3.86-4.86)
[2019-01-20 06:46] LABS: Albumin 2.5 g/dL (3.4-5.0); Magnesium 2.4 mg/dL (1.8-2.4); Potassium 4.3 mmol/L (3.5-5.1); Prealbumin 13.1 mg/dL (20-40)
[2019-01-20] MEDS ORDERED: AMLODIPINE 5 MG TAB PO SCH (08:00)
[2019-01-20] MEDS: DOCUSATE NA 100 MG CAP PO SCH ×2 (08:00→21:08)
[2019-01-20] MEDS: INSULIN -REGULAR HUMAN 50 UNIT/0.5 ML ML SQ SCH ×4 (08:37→22:02)
[2019-01-20] MEDS: ENOXAPARIN 40 MG/0.4 ML SQ SCH (08:38)
[2019-01-20] MEDS: NICOTINE 21 MG/PAT TD SCH (08:39)
[2019-01-20] MEDS: NEBIVOLOL HCL 20 MG TABLET PO SCH (08:40)
[2019-01-20] MEDS: CEFUROXIME 250 MG TAB PO SCH ×2 (08:42→21:08)
[2019-01-20] MEDS: GLIMEPIRIDE 2 MG TABLET PO SCH (08:42)
[2019-01-20] MEDS: LOSARTAN POTASSIUM 50 MG TABLET PO SCH (08:43)
[2019-01-20] MEDS: GABAPENTIN 100 MG CAP PO SCH ×2 (08:44→21:08)
[2019-01-20] MEDS: METFORMIN ER 500 MG TAB PO SCH (08:47)
[2019-01-20] MEDS: TRAMADOL HCL 50 MG TAB PO PRN (08:58)
--- NOTE | 2019-01-20 09:46 | P.RH.PN ---
Estimated Length of Stay: 14 Expected Discharge Date: 02/01/19 Discharge Disposition Plan: Home Family Support: Yes [facility] Goal: Mobility, Transfers, Self Care Vital Signs: Last Vital Signs Temp 97.8 F 01/20/19 07:45 Pulse 67 01/20/19 08:44 Resp 16 01/20/19 07:45 BP 159/69 H 01/20/19 08:44 Pulse Ox 98 01/20/19 07:45 Laboratory: Laboratory Last Values WBC 8.2 K/uL (4.3-10.9) D 01/20/19 05:59 RBC 2.92 M/uL (3.86-4.86) L 01/20/19 05:59 Hgb 8.4 g/dL (12.0-15.0) L 01/20/19 05:59 Hct 25.2 % (36.0-45.0) L 01/20/19 05:59 MCV 86.4 fL (80-100) 01/20/19 05:59 MCH 28.7 pg (27.0-35.0) 01/20/19 05:59 MCHC 33.2 g/dL (32.0-36.0) 01/20/19 05:59 RDW 13.8 % (12.1-15.2) 01/20/19 05:59 Plt Count 310 K/uL (152-406) 01/20/19 05:59 MPV 8.0 fL (7.6-11.3) 01/20/19 05:59 Neutrophils % 72.8 % (41.7-73.7) 01/20/19 05:59 Lymphocytes % 12.3 % (15.3-44.8) L 01/20/19 05:59 Monocytes % 12.5 % (3.3-12.3) H 01/20/19 05:59 Eosinophils % 1.9 % (0-4.4) 01/20/19 05:59 Basophils % 0.5 % (0-1.3) 01/20/19 05:59 Absolute Neutrophils 5.9 K/uL (1.8-8.0) 01/20/19 05:59 Absolute Lymphocytes 1.0 K/uL (0.7-4.9) 01/20/19 05:59 Absolute Monocytes 1.0 K/uL (0.1-1.3) 01/20/19 05:59 Absolute Eosinophils 0.2 K/uL (0-0.5) 01/20/19 05:59 Absolute Basophils 0.0 K/uL (0-0.5) 01/20/19 05:59 Sodium 140 mmol/L (136-145) 01/20/19 05:59 Potassium 4.3 mmol/L (3.5-5.1) 01/20/19 05:59 Chloride 109 mmol/L (98-107) H 01/20/19 05:59 Carbon Dioxide 25 mmol/L (21-32) 01/20/19 05:59 BUN 35 mg/dL (7-18) H 01/20/19 05:59 Creatinine 1.40 mg/dL (0.55-1.3) H 01/20/19 05:59 Estimated GFR 36 mL/min (=/>90) L 01/20/19 05:59 Glucose 176 mg/dL (74-106) H 01/20/19 05:59 POC Glucose 211 mg/dl (65-120) H 01/20/19 07:30 Calcium 9.2 mg/dL (8.5-10.1) 01/20/19 05:59 Magnesium 2.4 mg/dL (1.8-2.4) 01/20/19 05:59 Albumin 2.5 g/dL (3.4-5.0) L 01/20/19 05:59 Prealbumin 13.1 mg/dL (20-40) L 01/20/19 05:59 Weight: 140 lb Wound Present: Yes Closed Surgical Incision Present: Yes Negative Pressure Wound Therapy Present: No Physician Update: Labs reviewed. Hgb is low at 8.4. On hemocyte plus and ferrous sulfate. She is already making good progress with physical and occupational therapy. Summary: Patient's care plan and [facility] goals have been reviewed and revised as necessary. Please see the Rehabilitation Signature page for all necessary signatures.
[2019-01-20] MEDS: PROMOD 30 ML DOSE PO SCH ×2 (10:03→21:09)
[2019-01-20] MEDS: FERROUS SULFATE 325 MG TAB PO SCH (10:03)
[2019-01-20] MEDS: FE SULF/FA/VIT B COMP & C TAB PO SCH (10:03)
--- NOTE | 2019-01-20 13:33 | P.PN ---
Subjective Date of Service: 01/20/19 Subjective: Working w/ PT (Pt is doing well w rehab. BP is improved.) Review of Systems 10-point ROS is otherwise unremarkable Physical Examination - Vital Signs Temperature: 97.8 F Blood Pressure: 159/69 Pulse: 67 Respirations: 16 Pulse Ox (%): 98 - Physical Exam General: Alert, In no apparent distress, Oriented x3 HEENT: Atraumatic, PERRLA, EOMI Neck: Supple, JVD not distended Respiratory: Clear to auscultation bilaterally, Normal air movement Cardiovascular: No edema, Normal S1 S2 Gastrointestinal: Normal bowel sounds, Soft and benign, Non-distended, No tenderness Musculoskeletal: No clubbing, No tenderness, Other (left hip incision site c/d/i ) Integumentary: No rashes Neurological: Normal speech, Normal strength at 5/5 x4 extr, Normal tone, Normal affect - Studies Laboratory Data (last 24 hrs) 01/20/19 05:59: Sodium 140, Potassium 4.3, BUN 35 H, Creatinine 1.40 H, Glucose 176 H, Magnesium 2.4 01/20/19 05:59: WBC 8.2 D, Hgb 8.4 L, Hct 25.2 L, Plt Count 310 Medications List Reviewed: Yes Assessment And Plan - Current Problems (Diagnosis) (1) Hip fracture, left Current Visit: No Status: Acute Qualifiers: Encounter type: initial encounter Fracture type: closed Qualified Code(s) : S72.002A - Fracture of unspecified part of neck of left femur, initial encounter for closed fracture (2) Diabetes Current Visit: No Status: Chronic Qualifiers: Diabetes mellitus type: type 2 Diabetes mellitus dividend deposit entry clerk insulin use: with dividend deposit entry clerk use Diabetes mellitus complication status: with hyperglycemia Qualified Code(s): E11.65 - Type 2 diabetes mellitus with hyperglycemia; Z79.4 - outsole skiver (current) use of insulin (3) HTN (hypertension) Current Visit: No Status: Chronic Qualifiers: Hypertension type: essential hypertension (4) Hyperlipidemia Current Visit: No Status: Chronic Qualifiers: Hyperlipidemia type: mixed hyperlipidemia (5) Acute kidney injury superimposed on chronic kidney disease Current Visit: Yes Status: Acute (6) Acute blood loss anemia Current Visit: Yes Status: Acute (7) Vaginal prolapse Current Visit: Yes Status: Acute (8) Acute cystitis without hematuria Current Visit: Yes Status: Acute - Plan Monitor , Fe supplements BP much improved. Can add prn hydralazine 10mg IV q6hr prn systolic >160 Cont lovenox for DVT prophylaxis post hip surgery Monitor Cr. Avoid NSAIDs Outpt f/up w SENIOR IOS SOFTWARE ENGINEER for vaginal prolapse - Code Status/Comfort Care Code Status Assessed: Yes
--- NOTE | 2019-01-20 13:49 | R.HP ---
FACILITY: [facility] ENCOUNTER DATE AND TIME: 01/20/2019 13:42 (FISH LIVER SORTER) MR#: [id number] NAME LUISA SANCHEZ ADDRESS: [address] [place] [address] CITY: [place]IP [id number] PHONE: DATE OF : 1940 AGE: 78 SSN# [id number] GENDER: Female DEXTERITY Right-handed MARITAL STATUS RACE White PRE-HOSPITAL LIVING SETTING 01 - Home (private home/apt. board/care, assisted living, nursing home, transitional living) PRE-HOSPITAL LIVING WITH Alone ENCOUNTER PHYSICIAN: Dr. Lamont Mendez M.D. 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 is a 78 yo Right-handed white female. Her impairment category is Orthopaedic Disorders 08 - Unilateral Hip Fracture (08.11). Pre-morbidly, Pt. was independent/mod-I in Transfers Control, Communication, Social Cognition, Self-C are, Locomotion, and Sphincter Control; and she had good Sphincter Control. Currently, she has deficits of Safety Awareness, Transfers Control, Balance, Locomotion, Endurance, a nd Self-Care. Pt. is now referred to [facility] for acute in-patient rehabilitation in order to maximize patient's functional independence in activities of daily living, strength, ROM, and mobi lity. Patient has realistic goal of being discharged at assistance level 6-Raquel to reside at Home with Fam susy/Relatives. Luisa Sanchez is a 78 year old female that lives in a single ramón home with a ramp. Patient is independent with ADL doing laundry and cooking at home and can still drive. 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 She is now medically stable but in need of 24-hour nursing, doctor supervision and oversite while receiving The patient is reasonably expected to participate in 3hours of therapy a day/15 hours per week and receive care with an intensive interdisciplinary approach. 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 SOCIAL HISTORY: - Home Living Alone REVIEW OF SYSTEMS: - Gen No Chills Fatigue No Fever - Eyes No Double Vision No itchiness - ENMT No Difficulty Swallowing - CVS No Chest Discomfort No Chest Pain Fatigue No Weight Gain - Resp No Cough No Shortness of Breath - GI Continent No Abdominal Pain No Constipation No Diarrhea - Continent No Kidney Pain No Painful Urination No Urinary Urgency - MSK No Joint Pain Muscle Cramps No Stiffness - Skin No Itching No Rash No Suspicious Lesions - Neuro Coordination Difficulty No Difficulty with Concentration No Memory Loss No Seizures Weakness - Psych No Anxiety No Depression No HIV Exposure No Persistent Infections No Seasonal Allergies - Endo No Cold/Heat Intolerance No Excessive Hunger No Excessive Thirst No Excessive Urination PHYSICAL EXAM - Gen Alert and awake Lying in bed No apparent distress Oriented to: person, time, and place - Skin No breakdown No abnormalities - Eyes No abnormalities - ENMT No abnormalities - Neck No abnormalities - CVS RRR - Chest Clear - Abd +bowel sounds - GI Soft Deferred - No abnormalities - Ext Trace edema in left leg and foot. - MSK 4+/5 weakness in left lower extremity. - Neuro 4/5 strength left lower extremity. - Psych No abnormalities VITAL SIGNS Temperature: 97.8 F SBP/DBP: 159/69 Pulse: 67 Resp: 16 NURSING: - Shower allowing shower - Lab Results blood Sugar Check ACHS - Skin care per protocol PRECAUTIONS: - Posterior Hip Precaution No adduction across midline No external rotation No hip flexion >90 degrees No internal rotation No wheel chair propulsion - Weight Bearing Precaution TTWB left LE ACTIVITIES OOB only with supervision FUNCTIONAL STATUS: - Self-Care A. Eating Ind Raquel B. Grooming Ind sup C. Bathing Ind sup D. Dressing - Upper Ind sup E. Dressing - Lower Ind Dep F. Toileting Ind maxA - Sphincter Control G: Bladder control Ind Ind H: Bowel control Ind Ind - Transfers Control I. Bed/Chair/Wheelchair Ind CGA J. Toilet Ind CGA K. Tub/Shower Ind ADNO - Locomotion L. Walk/Wheelchair (C) Ind Salazar L. Walk/Wheelchair (W) Ind Salazar M. Stairs Ind ADNO - Communication N. Comprehension (B) Ind Ind O. Expression (B) Ind Ind - Social Cognition P. Social Interaction Ind Ind Q. Problem Solving Ind Ind R. Memory Ind Ind - Endurance Fair - Balance Fair - Safety Awareness Fair CURRENT FUNC. DEFICITS: Safety Awareness, Transfers Control, Balance, Locomotion, Endurance, and Self-Care ASSESSMENT: Pt. is a 78 yo Right-handed white female.Her impairment category is Orthopaedic Disorders 08 - Unila teral Hip Fracture (08.11).Pre-morbidly, Pt. was independent/mod-I in Transfers Control, Communicatio n, Social Cognition, Self-Care, Locomotion, and Sphincter Control; and she had good Sphincter Control .Currently, she has deficits of Safety Awareness, Transfers Control, Balance, Locomotion, Endurance, and Self-Care.Pt. is now referred to [facility] for acute in-patient rehabilit ation in order to maximize patient's functional independence in activities of daily living, strength, ROM, and mobility.- Rehab Goal Patient has realistic goal of being discharged at assistance level 6-Raquel to reside at Home with Fam susy/Relatives. Luisa Sanchez is a 78 year old female that lives in a single ramón home with a ramp. Patient is independent with ADL doing laundry and cooking at home and can still drive. 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 She is now medically stable but in need of 24-hour nursing, doctor supervision and oversite while receiving The patient is reasonably expected to participate in 3hours of therapy a day/15 hours per week and receive care with an intensive interdisciplinary approach.REHAB PLAN: - Physical Therapy Decreased range of motion - to improve, our physical therapists will perform initial evaluation of pt 's status upon admission and devise an individualized program for increasing patient's Range of Motio n. Gait dysfunction - to improve, our physical therapists will perform initial evaluation of pt's status upon admission and devise an individualized program for Gait Training, and Wheel Chair mobility Inability to transfer - to improve, our physical therapists will perform initial evaluation of pt's s tatus upon admission and devise an individualized program for Bed mobility Need for home safety evaluation - to improve, our physical therapists will perform initial evaluation of pt's status upon admission and devise an individualized program for Home Evaluation Need in caregiver upon discharge - to improve, our physical therapists will perform initial evaluatio n of pt's status upon admission and devise an individualized program for Caregiver Training New precaution - to improve, our physical therapists will perform initial evaluation of pt's status u tavares admission and devise an individualized program for Patient precaution education Edema - to improve, our physical therapists will perform initial evaluation of pt's status upon admi ssion and devise an individualized program for Elevation Training, and Lymphedema Therapy Poor balance - to improve, our physical therapists will perform initial evaluation of pt's status upo n admission and devise an individualized program for Balance Training Poor endurance - to improve, our physical therapists will perform initial evaluation of pt's status u tavares admission and devise an individualized program for Endurance Training Weakness - to improve, our physical therapists will perform initial evaluation of pt's status upon ad mission and devise an individualized program for Aquatic Therapy, Neuromuscular Reeducation, and Stre ngthening Achieving independence - to improve, our physical therapists will perform initial evaluation of pt's status upon admission and devise an individualized program for Community Reintegration Activities - Occupational Therapy ADL deficits - to improve, our occupation therapists will perform initial evaluation of pt's status u tavares admission and devise an individualized program for Bathing, Bed mobility, Community Reintegration , Cooking, Dressing, Eating, Fine Motor Skills, Grooming, Homemaking, Kitchen Mobility, Laundry, Leesa ent Education, Safety Awareness, Splinting - Positioning, Transfers(Toilet, Tub, Shower), and Wheel C hair Management Need for home care scheduler - to improve, our occupation therapists will perform initial evaluation of pt's s tatus upon admission and devise an individualized program for Caregiver Training Weakness - to improve, our occupation therapists will perform initial evaluation of pt's status upon admission and devise an individualized program for Aquatic Therapy, Balance, Endurance, UE ROM, and U E strengthening MEDICAL PLAN: - Anterior Hip Precaution No abduction No active extension No adduction across midline No external rotation No hip flexion >90 degrees No internal rotation - Diet - Liquid Texture Start Regular - Tube Feed Start N/A - Diet Type Start Regular - Posterior Hip Precaution No adduction across midline No external rotation No hip flexion >90 degrees No internal rotation No wheel chair propulsion - Lab Results blood Sugar Check ACHS - Weight Bearing Precaution TTWB left LE - Skin care per protocol - Diet - Solid Texture Regular - Shower shower DISCHARGE PLAN: - Estimated Length of Stay (days) 14. - Consensus on plan Discharge plan has been discussed with primary caregiver. Patient/Family is in agreement with the nba n. Primary caregiver is in agreement with the plan. - Patient/Family Goals Return home with assistance. - Planned Living Setting Upon Discharge Home, to live with Family/Relatives. SIGNATURE PANEL: (FISH LIVER SORTER)
--- NOTE | 2019-01-20 13:50 | PAPE ---
PATIENT: [facility] MR# [id number] REFERRING DOCTOR nigel Taylor EVALUATION DATE AND TIME 01/20/2019 13:49 (DUMP OPERATOR) NAME VENESSA NUNO DATE OF 1940 AGE 78 PHONE N# [id number] GENDER female EVALUATING PHYSICIAN Dr. Lamont Mendez M.D. 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 PATIENT NEEDS CLOSE MEDICAL SUPERVISION BY A REHABILITATION PHYSICIAN FOR: Bowel and Bladder Management Coordination of Treatment Team Diabetes Management Medical and Co-Morbidity Management Wound Care Pain Management DVT Management PATIENT REQUIRES 24X7 REHAB NURSING FOR MEDICAL AND FUNCTIONAL MGT. OF THE FOLLOWING DEFICITS: ADL's Ambulation Bowel and Bladder Management Communication Disease Management Medication Management Patient/Family Education Providing Safe Environment Skin Integrity Transfers Pain Management PATIENT REQUIRES INTENSIVE, COORDINATED INTERDISCIPLINARY APPROACH TO REHAB: Arranging Home Equipment/Services Discharge Planning Family Intervention/Training Medical Bill Processor/Case Management LIST OF IDENTIFIED AND POTENTIAL PROBLEMS: Alteration in leisure activities Bladder, Incontinence Blood Pressure, Hypertension/hypotension Issues Bowel, Incontinence Diabetes, Hyperglycemia/hypoglycemia Issues Infection, Actual or Potential Mobility Impaired Pain, Alteration in Comfort Self Care Deficit Skin Integrity, Actual or Potential Urinary Tract Infection (UTI), Actual or Potential RISK FOR COMPLICATIONS - Hypertension CVA. Hypotension. CO. TIA. INTERVENTIONS - Hypertension PATIENT COULD BE AT RISK FOR COMPLICATIONS FROM ADVERSE MEDICAL CONDITIONS DUE TO HIS/HER COMORBIDITI ES AND THE RIGORS OF THE INTENSIVE REHABILLITATION PROGRAM. METHODS OR INTERVENTIONS TO AVOID COMPLIC ATIONS INCLUDE: - Deep Vein Thrombosis (DVT) Prophylaxis therapy for prevention . Sequential Compression Device (SCD). TE D Hose. - Bleeding Assess lab values and manage abnormalities. Nursing to teach precautions for anti-coagulation therapy . Wound to be assessed every shift. - Infection Clinical staff to assess and manage the signs and symptoms of infection including fever, redness, war mth, etc. - Urinary Tract Infection - Falls Patient will be evaluated for Fall Precautions and will be placed on Fall Precautions as indicated pe r protocol. - Skin Breakdown Nursing will assess skin daily using assessment tool and will place on Skin Breakdown Precautions as indicated per protocol. - Pain Clinical staff may employ non-medication methods such as massage, distraction, decrease stimulus, etc . as needed. Clinical staff will assess patient's pain level every shift per protocol to assess and e nsure pain management effectiveness. Medications will be given and the pain level re-assessed. PRELIMINARY PLAN OF CARE: - Physical Therapy Patient needs Physical Therapy for a daily minimum of 1.5 hours at least 5 out of 7 days, to improve: Mobility, Strengthening, Transfers, Stretching, ROM, Endurance, Ability to manage stairs, Gait, and Balance. - Rehabilitation Nursing Patient requires 24x7 Rehabilitation Nursing for: Pain Issues, Identifying and preventing risk factor s, Monitoring and reporting current medical conditions, Assisting with ambulation and transfer, Lizy ting with all ADL-s, Teaching patients about disease process and medications, Family teaching, Provid ing safe environment, Bowel and Bladder Issues, Skin Integrity, and Medication Management. Patient needs Medical Bill Processor and/or Case Management for: Discharge Planning, Arranging Home Equipmen t or Services, and Family Interventions. - Dietary and Nutrition Services Patient needs Dietary and Nutrition Services for: Adequate Nutrition, Nutritional Supplements, and Nu tritional Education. - Occupational Therapy Patient needs Occupational Therapy for a daily minimum of 1.5 hours at least 5 out of 7 days, to impr ove Activities of Daily Living, including: Eating, Grooming, Bathing, Dressing, Toileting, Toilet Tra nsfers, Community Reintegration, Higher functional activities, Adaptive Equipment, Splinting, Househo ld Tasks, and Other activities as determined. POTENTIAL FUNCTIONAL GOALS FOR PATIENT TO ACHIEVE BY DISCHARGE: - Safety Precaution Patient will remain free from falls or injury at time of discharge. - Bed Mobility Patient will perform bed mobility at 4-Salazar level of assistance. - Transfers Patient will complete transfers from bed to chair at 4-Salazar level of assistance. - Mobility Patient will ambulate 150 ft with 4-Salazar level of assistance with RW. PATIENT REHAB POTENTIAL Expected level of measurable improvement will be of a practical value to patient's functional capacit y or adaptations to impairments Has a viable Discharge Plan Medically appropriate; condition is sufficiently stable to participate in intensive rehab program Patient is able and expected to receive 3 hours of individualized therapy daily on at least 5 of ever y 7 days Patient's prognosis for significant practical improvement within a reasonable period of time appears Good DISCHARGE PLAN: - Estimated Length of Stay (days) 14. - Consensus on plan Discharge plan has been discussed with primary caregiver. Patient/Family is in agreement with the nba n. Primary caregiver is in agreement with the plan. - Patient/Family Goals Return home with assistance. - Planned Living Setting Upon Discharge Home, to live with Family/Relatives. CONCLUSION ON REHABILITATION NECESSITY: I have evaluated patient's pre-admission functional status and, comparing it to the patient's post-ad mission functional status now, I conclude that the pre-admission assessment was accurate. Patient's c ondition on admission supports the medical necessity of admission to [facility]. It is safe to proceed with patient's therapy program. SIGNATURE PANEL: (DUMP OPERATOR)
--- NOTE | 2019-01-20 16:41 | FAST ---
SHIFT START DATE/TIME: 01/20/2019 07:00 (TOLL LINEMAN) SHIFT END DATE/TIME: 01/20/2019 19:00 (TOLL LINEMAN) NAME VENESSA NUNO DATE OF : 1940 DATE OF ADMISSION: 01/19/2019 16:37 (TOLL LINEMAN) PHONE: AGE: 78 SSN# [id number] GENDER: Female ENCOUNTER PHYSICIAN: Dr. Lamont Mendez M.D. ADMISSION DIAGNOSIS: - Orthopaedic Disorders 08 - Unilateral Hip Fracture (08.11) LEFT HIP INTERTROCHANTERIC FRACTURE. EATING: EATING - STEP 1: Does the patient require the assistance of a person or device, or need extra time when eating? No. EATING - SCORE: 7-IND GROOMING: Wash, rinse, and dry face Wash, rinse, and dry hands GROOMING - STEP 1: Does the patient require the assistance of a person or device, or need extra time when grooming? No. GROOMING - SCORE: 7-IND BATHING: Activity did not occur on this shift BATHING - SCORE: 0-UNK DRESSING - UPPER BODY: Activity did not occur on this shift ARTICLES SCORE Total number of steps: 0 DRESSING - UPPER BODY - SCORE: 0-UNK DRESSING - LOWER BODY: Activity did not occur on this shift ARTICLES SCORE Total number of steps: 0 DRESSING - LOWER BODY - SCORE: 0-UNK TOILETING: TOILETING - STEP 1: Does the patient require the assistance of a person or device, or need extra time with toileting? Yes . TOILETING - STEP 2: Does the patient require the assistance of a helper? Yes. TOILETING - STEP 3: How much assistance does the patient require from the helper? Only supervision TOILETING - SCORE: 5-SUP BLADDER MANAGEMENT: BLADDER MANAGEMENT - STEP 1: Does the patient control the bladder completely and intentionally without equipment or devices or med ications, and is always continent? Yes. BLADDER MANAGEMENT - SCORE: 7-IND BLADDER MANAGEMENT - FREQUENCY OF ACCIDENTS: BLADDER MANAGEMENT(FA) - STEP 1: How many accidents has the patient had during the current shift? 0 BOWEL MANAGEMENT: BOWEL MANAGEMENT - STEP 1: Does the patient control bowels completely and intentionally without equipment devices or medications AND is always continent? Yes. BOWEL MANAGEMENT - SCORE: 7-IND BOWEL MANAGEMENT - FREQUENCY OF ACCIDENTS: BOWEL MANAGEMENT(FA) - STEP 1: How many accidents has the patient had during the current shift? 0 TRANSFERS: BED, CHAIR, WHEELCHAIR: TRANSFERS: BED, CHAIR, WHEELCHAIR - STEP 1: Does the patient require assistance of a person or device, or need extra time with bed, chair, or whe elchair transfers? Yes. TRANSFERS: BED, CHAIR, WHEELCHAIR - STEP 2: Does the patient require the assistance of a helper? Yes. TRANSFERS: BED, CHAIR, WHEELCHAIR - STEP 3: How much assistance does the patient require from the helper? Steadying/guiding assistance TRANSFERS: BED, CHAIR, WHEELCHAIR - SCORE: 4-MIN TRANSFERS: TOILET: TRANSFERS: TOILET - STEP 1: Does the patient require the assistance of a person or device, or need extra time with toilet transfe rs? Yes. TRANSFERS: TOILET - STEP 2: Does the patient require the assistance of a helper? Yes. TRANSFERS: TOILET - STEP 3: How much assistance does the patient require from the helper? Patient performs half or more of the tr ansferring tasks TRANSFERS: TOILET - STEP 4: Does the patient need only incidental help such as contact guard or steadying during toilet transfer? Yes. TRANSFERS: TOILET - SCORE: 4-MIN TRANSFERS: SHOWER: Activity did not occur on this shift TRANSFERS: SHOWER - SCORE: 0-UNK TRANSFERS: TUB: Activity did not occur on this shift TRANSFERS: TUB - SCORE: 0-UNK LOCOMOTION: WALK: Activity did not occur on this shift LOCOMOTION: WALK - SCORE: 0-UNK LOCOMOTION: WHEELCHAIR: Activity did not occur on this shift LOCOMOTION: WHEELCHAIR - SCORE: 0-UNK COMPREHENSION: COMPREHENSION - SCORE: 0-UNK EXPRESSION EXPRESSION - SCORE: 0-UNK SOCIAL INTERACTION: SOCIAL INTERACTION - SCORE: 0-UNK PROBLEM SOLVING: PROBLEM SOLVING - SCORE: 0-UNK MEMORY: MEMORY - SCORE: 0-UNK SIGNATURE PANEL: The following modified sections: Eating - Score, Grooming - Score, Bathing - Score, Dressing - Upper Body - Score, Dressing - Lower Body - Score, Toileting - Score, Bladder Management - Score, Bowel Man agement - Score, Transfers: Bed, Chair, Wheelchair - Score, Transfers: Toilet - Score, Transfers: Vicki wer - Score, Transfers: Tub - Score, Locomotion: Walk - Score, Locomotion: Wheelchair - Score, Compre hension - Score, Expression - Score, Social Interaction - Score, Problem Solving - Score, Memory - Sc ore were [electronically] signed by Susana Hill CNA on WedJan 20 2019 16:40:24 GMT-0600 (Cent[facility] Standard Time)
--- NOTE | 2019-01-20 17:27 | FAST ---
ENCOUNTER DATE AND TIME: 01/20/2019 08:00 (BRAZER CRAWLER TORCH) NAME VENESSA NUNO DATE OF : 1940 DATE OF ADMISSION: 01/19/2019 16:37 (BRAZER CRAWLER TORCH) PHONE: AGE: 78 SSN# [id number] GENDER: Female ENCOUNTER PHYSICIAN: Dr. Lamont Mendez M.D. ADMISSION DIAGNOSIS: - Orthopaedic Disorders 08 - Unilateral Hip Fracture (08.11) LEFT HIP INTERTROCHANTERIC FRACTURE. EATING: Activity did not occur on this shift EATING - SCORE: 0-UNK GROOMING: Activity did not occur on this shift GROOMING - SCORE: 0-UNK BATHING: Activity did not occur on this shift BATHING - SCORE: 0-UNK DRESSING - UPPER BODY: Activity did not occur on this shift Patient is not dressing in public clothing ARTICLES SCORE Total number of steps: 0 DRESSING - UPPER BODY - SCORE: 0-UNK DRESSING - LOWER BODY: Activity did not occur on this shift Patient is not dressing in public clothing ARTICLES SCORE Total number of steps: 0 DRESSING - LOWER BODY - SCORE: 0-UNK TOILETING: Activity did not occur on this shift TOILETING - SCORE: 0-UNK BLADDER MANAGEMENT: Activity did not occur on this shift BLADDER MANAGEMENT - SCORE: 7-IND BOWEL MANAGEMENT: Activity did not occur on this shift BOWEL MANAGEMENT - SCORE: 7-IND TRANSFERS: BED, CHAIR, WHEELCHAIR: TRANSFERS: BED, CHAIR, WHEELCHAIR - STEP 1: Does the patient require assistance of a person or device, or need extra time with bed, chair, or whe elchair transfers? Yes. TRANSFERS: BED, CHAIR, WHEELCHAIR - STEP 2: Does the patient require the assistance of a helper? Yes. TRANSFERS: BED, CHAIR, WHEELCHAIR - STEP 3: How much assistance does the patient require from the helper? Steadying/guiding assistance TRANSFERS: BED, CHAIR, WHEELCHAIR - SCORE: 4-MIN TRANSFERS: TOILET: Activity did not occur on this shift TRANSFERS: TOILET - SCORE: 0-UNK TRANSFERS: SHOWER: Activity did not occur on this shift TRANSFERS: SHOWER - SCORE: 0-UNK TRANSFERS: TUB: Activity did not occur on this shift TRANSFERS: TUB - SCORE: 0-UNK LOCOMOTION: WALK: LOCOMOTION: WALK - STEP 1: Does the patient need help from a person or device, or need extra time to walk 150 feet? Yes. LOCOMOTION: WALK - STEP 2: How much assistance does the patient require to walk a minimum of 150 feet? Patient walks less than 1 50 feet - but more than 50 feet - with the assistance of only one helper LOCOMOTION: WALK - SCORE: 2-MAX LOCOMOTION: WHEELCHAIR: LOCOMOTION: WHEELCHAIR - STEP 1: Does the patient need help to go 150 feet in a wheelchair? Yes. LOCOMOTION: WHEELCHAIR - STEP 2: How much assistance does the patient need from the helper? Only supervision, cuing, or coaxing LOCOMOTION: WHEELCHAIR - SCORE: 5-SUP LOCOMOTION: STAIRS: Activity did not occur on this shift LOCOMOTION: STAIRS - SCORE: 0-UNK COMPREHENSION: COMPREHENSION - SCORE: 0-UNK EXPRESSION EXPRESSION - SCORE: 0-UNK SOCIAL INTERACTION: SOCIAL INTERACTION - SCORE: 0-UNK PROBLEM SOLVING: PROBLEM SOLVING - SCORE: 0-UNK MEMORY: MEMORY - SCORE: 0-UNK SIGNATURE PANEL: The following modified sections: Transfers: Bed, Chair, Wheelchair - Score, Transfers: Toilet - Score , Locomotion: Walk - Score, Locomotion: Wheelchair - Score, Locomotion: Stairs - Score were [electron ically] signed by Silvestre Bishop PT on WedJan 20 2019 17:26:29 GMT-0600 (Central Standard Time)
[2019-01-20] MEDS: ATORVASTATIN 10 MG TAB PO SCH (21:08)
--- NOTE | 2019-01-21 02:13 | FAST ---
SHIFT START DATE/TIME: 01/20/2019 19:00 (SWITCH OPERATORS SUPERVISOR) SHIFT END DATE/TIME: 01/21/2019 07:00 (SWITCH OPERATORS SUPERVISOR) NAME VENESSA NUNO DATE OF : 1940 DATE OF ADMISSION: 01/19/2019 16:37 (SWITCH OPERATORS SUPERVISOR) PHONE: AGE: 78 SSN# [id number] GENDER: Female ENCOUNTER PHYSICIAN: Dr. Lamont Mendez M.D. ADMISSION DIAGNOSIS: - Orthopaedic Disorders 08 - Unilateral Hip Fracture (08.11) LEFT HIP INTERTROCHANTERIC FRACTURE. EATING: Activity did not occur on this shift EATING - SCORE: 0-UNK GROOMING: Oral care Wash, rinse, and dry face Wash, rinse, and dry hands GROOMING - STEP 1: Does the patient require the assistance of a person or device, or need extra time when grooming? Yes. GROOMING - STEP 2: Does the patient require the assistance of a helper? Yes. GROOMING - STEP 3: How much assistance does the patient require from the helper? Only prior equipment preparation/set up from the helper GROOMING - SCORE: 5-SUP BATHING: Activity did not occur on this shift BATHING - SCORE: 0-UNK DRESSING - UPPER BODY: Patient is not dressing in public clothing ARTICLES SCORE Total number of steps: 0 DRESSING - UPPER BODY - SCORE: 0-UNK DRESSING - LOWER BODY: Patient is not dressing in public clothing ARTICLES SCORE Total number of steps: 0 DRESSING - LOWER BODY - SCORE: 0-UNK TOILETING: TOILETING - STEP 1: Does the patient require the assistance of a person or device, or need extra time with toileting? Yes . TOILETING - STEP 2: Does the patient require the assistance of a helper? Yes. TOILETING - STEP 3: How much assistance does the patient require from the helper? Hands-on assistance from the helper TOILETING - STEP 4: Of the 3 tasks: 1) Adjusting clothing prior to use, 2) Cleansing of perineal area, 3) Adjusting clot jonatan after use; How many tasks does the patient perform WITHOUT assistance of the helper? Three tasks with steadying assistance from the helper TOILETING - SCORE: 4-MIN BLADDER MANAGEMENT: BLADDER MANAGEMENT - STEP 1: Does the patient control the bladder completely and intentionally without equipment or devices or med ications, and is always continent? No. BLADDER MANAGEMENT - STEP 2: Does the patient require the assistance of a helper? Yes. BLADDER MANAGEMENT - STEP 3: How much assistance does the patient require from the helper? Only supervision, stand-by, cuing, or c oaxing BLADDER MANAGEMENT - SCORE: 5-SUP BOWEL MANAGEMENT: Activity did not occur on this shift BOWEL MANAGEMENT - SCORE: 7-IND TRANSFERS: BED, CHAIR, WHEELCHAIR: TRANSFERS: BED, CHAIR, WHEELCHAIR - STEP 1: Does the patient require assistance of a person or device, or need extra time with bed, chair, or whe elchair transfers? Yes. TRANSFERS: BED, CHAIR, WHEELCHAIR - STEP 2: Does the patient require the assistance of a helper? Yes. TRANSFERS: BED, CHAIR, WHEELCHAIR - STEP 3: How much assistance does the patient require from the helper? Lifting of the legs TRANSFERS: BED, CHAIR, WHEELCHAIR - STEP 4: How many legs does the patient require the helper to lift? both legs TRANSFERS: BED, CHAIR, WHEELCHAIR - SCORE: 3-MOD TRANSFERS: TOILET: TRANSFERS: TOILET - STEP 1: Does the patient require the assistance of a person or device, or need extra time with toilet transfe rs? Yes. TRANSFERS: TOILET - STEP 2: Does the patient require the assistance of a helper? Yes. TRANSFERS: TOILET - STEP 3: How much assistance does the patient require from the helper? Patient performs half or more of the tr ansferring tasks TRANSFERS: TOILET - STEP 4: Does the patient need only incidental help such as contact guard or steadying during toilet transfer? Yes. TRANSFERS: TOILET - SCORE: 4-MIN TRANSFERS: SHOWER: Activity did not occur on this shift TRANSFERS: SHOWER - SCORE: 0-UNK TRANSFERS: TUB: Activity did not occur on this shift TRANSFERS: TUB - SCORE: 0-UNK LOCOMOTION: WALK: Activity did not occur on this shift LOCOMOTION: WALK - SCORE: 0-UNK LOCOMOTION: WHEELCHAIR: Activity did not occur on this shift LOCOMOTION: WHEELCHAIR - SCORE: 0-UNK COMPREHENSION: COMPREHENSION: TYPE: Both COMPREHENSION - STEP 1: Does the patient require help from a person or device, or need extra time to understand complex and a bstract ideas (such as current events, finances, discharge planning, medical issues, relationships, e tc)? No. COMPREHENSION - STEP 2: Does the patient need extra time, require an assistive device (such as glasses for visual comprehensi on or a hearing aid for auditory comprehension) or does s/he have mild difficulty understanding compl ex and abstract information? Yes. COMPREHENSION - SCORE: 6-AIBGAIL EXPRESSION EXPRESSION: TYPE: Both EXPRESSION - STEP 1: Does the patient require help from a person or device, or need extra time expressing complex and abst ract ideas (such as current events, finances, discharge planning, medical issues, relationships, etc) ? No. EXPRESSION - STEP 2: Does the patient need extra time, require an assistive device (such as augmentive communication syste m or a communication board), OR does s/he have mild difficulty expressing complex and abstract ideas (including mild dysarthria or mild word-find problems)? Yes. EXPRESSION - SCORE: 6-ABIGAIL SOCIAL INTERACTION: SOCIAL INTERACTION - STEP 1: Does the patient require a helper to interact with others in social and therapeutic situations? No. SOCIAL INTERACTION - STEP 2: Does the patient need extra time in social situations, OR does s/he interact with staff, other patien ts, and family members ONLY in structured environments, OR does s/he require medication for social in teraction? Yes, patient needs extra time SOCIAL INTERACTION - SCORE: 6-ABIGAIL PROBLEM SOLVING: PROBLEM SOLVING - STEP 1: Does the patient need help from a person or device, or need extra time to solve complex problems such as managing a checking account or confronting interpersonal problems? No. PROBLEM SOLVING - STEP 2: Does the patient require extra time to make decisions or solve problems, OR does s/he have slight dif ficulty reading, initiating, or self-correcting in unfamiliar situations? Yes, patient needs extra ti me. PROBLEM SOLVING - SCORE: 6-ABIGAIL MEMORY: MEMORY - STEP 1: Does the patient need help from a person or device, or need extra time to remember frequently encount ered people, daily routines, and executing requests? No. MEMORY - STEP 2: Does the patient have slight difficulty recognizing frequently encountered people, daily routines, or executing requests without the need for repetition or using self-initiated or environmental cues to remember? Yes. MEMORY - SCORE: 6-ABIGAIL
[2019-01-21] MEDS: INSULIN -REGULAR HUMAN 50 UNIT/0.5 ML ML SQ SCH ×4 (07:30→20:20)
[2019-01-21] MEDS: FERROUS SULFATE 325 MG TAB PO SCH (08:31)
[2019-01-21] MEDS: GLIMEPIRIDE 2 MG TABLET PO SCH (08:31)
[2019-01-21] MEDS: LOSARTAN POTASSIUM 50 MG TABLET PO SCH (08:31)
[2019-01-21] MEDS: ENOXAPARIN 40 MG/0.4 ML SQ SCH (08:31)
[2019-01-21] MEDS: FORMULATION-R RECTAL 30GM PR PRN (08:31)
[2019-01-21] MEDS: FE SULF/FA/VIT B COMP & C TAB PO SCH (08:32)
[2019-01-21] MEDS: NEBIVOLOL HCL 20 MG TABLET PO SCH (08:32)
[2019-01-21] MEDS: DOCUSATE NA 100 MG CAP PO SCH ×2 (08:32→20:00)
[2019-01-21] MEDS: GABAPENTIN 100 MG CAP PO SCH ×2 (08:32→20:26)
[2019-01-21] MEDS: METFORMIN ER 500 MG TAB PO SCH (08:33)
[2019-01-21] MEDS: NICOTINE 21 MG/PAT TD SCH (08:34)
[2019-01-21] MEDS: PROMOD 30 ML DOSE PO SCH ×2 (08:35→20:25)
--- NOTE | 2019-01-21 11:11 | FAST ---
SHIFT START DATE/TIME: 01/21/2019 07:00 (EQUIPMENT INSTALLER) SHIFT END DATE/TIME: 01/21/2019 19:00 (EQUIPMENT INSTALLER) NAME VENESSA NUNO DATE OF : 1940 DATE OF ADMISSION: 01/19/2019 16:37 (EQUIPMENT INSTALLER) PHONE: AGE: 78 SSN# [id number] GENDER: Female ENCOUNTER PHYSICIAN: Dr. Lamont Mendez M.D. ADMISSION DIAGNOSIS: - Orthopaedic Disorders 08 - Unilateral Hip Fracture (08.11) LEFT HIP INTERTROCHANTERIC FRACTURE. EATING: EATING - STEP 1: Does the patient require the assistance of a person or device, or need extra time when eating? Yes. EATING - STEP 2: Does the patient require the assistance of a helper? No, patient only requires an assistive device, O R s/he takes more than reasonable time to eat, OR there is a safety concern, OR s/he requires modifie d food consistency EATING - SCORE: 6-ABIGAIL GROOMING: Comb/brush hair Oral care GROOMING - STEP 1: Does the patient require the assistance of a person or device, or need extra time when grooming? Yes. GROOMING - STEP 2: Does the patient require the assistance of a helper? No. The patient only requires an assistive devic e, OR takes more than reasonable time to groom, OR there is a concern for safety as the patient groom s GROOMING - SCORE: 6-ABIGAIL BATHING: Activity did not occur on this shift BATHING - SCORE: 0-UNK DRESSING - UPPER BODY: T-shirt/pullover shirt (four steps) ARTICLES SCORE Total number of steps: 4 DRESSING - UPPER BODY - STEP 1: Does the patient require help from a person or device, or need extra time when dressing above the [address]? Yes. DRESSING - UPPER BODY - STEP 2: Does the patient require the assistance of a helper? Yes. DRESSING - UPPER BODY - STEP 3: Does the helper touch the patient while dressing? No. DRESSING - UPPER BODY - SCORE: 5-SUP DRESSING - LOWER BODY: ARTICLES SCORE Total number of steps: 3 DRESSING - LOWER BODY - STEP 1: Does the patient require help from a person or device, or need extra time when dressing below the [address]? Yes. DRESSING - LOWER BODY - STEP 2: Does the patient require the assistance of a helper? Yes. DRESSING - LOWER BODY - STEP 3: Does the helper touch the patient while dressing? Yes. DRESSING - LOWER BODY - STEP 4: How many of the total steps does the patient complete on his/her own? 2 DRESSING - LOWER BODY - SCORE: 3-MOD TOILETING: TOILETING - STEP 1: Does the patient require the assistance of a person or device, or need extra time with toileting? Yes . TOILETING - STEP 2: Does the patient require the assistance of a helper? Yes. TOILETING - STEP 3: How much assistance does the patient require from the helper? Hands-on assistance from the helper TOILETING - STEP 4: Of the 3 tasks: 1) Adjusting clothing prior to use, 2) Cleansing of perineal area, 3) Adjusting clot jonatan after use; How many tasks does the patient perform WITHOUT assistance of the helper? Two tasks TOILETING - SCORE: 3-MOD BLADDER MANAGEMENT: BLADDER MANAGEMENT - STEP 1: Does the patient control the bladder completely and intentionally without equipment or devices or med ications, and is always continent? No. BLADDER MANAGEMENT - STEP 2: Does the patient require the assistance of a helper? No, patient requires and independently uses an a ssistive device, such as a urinal, bedpan, bedside commode, catheter, absorbent pad, or collecting de vice BLADDER MANAGEMENT - SCORE: 6-ABIGAIL BOWEL MANAGEMENT: Activity did not occur on this shift BOWEL MANAGEMENT - SCORE: 7-IND TRANSFERS: BED, CHAIR, WHEELCHAIR: TRANSFERS: BED, CHAIR, WHEELCHAIR - STEP 1: Does the patient require assistance of a person or device, or need extra time with bed, chair, or whe elchair transfers? Yes. TRANSFERS: BED, CHAIR, WHEELCHAIR - STEP 2: Does the patient require the assistance of a helper? Yes. TRANSFERS: BED, CHAIR, WHEELCHAIR - STEP 3: How much assistance does the patient require from the helper? Steadying/guiding assistance TRANSFERS: BED, CHAIR, WHEELCHAIR - SCORE: 4-MIN TRANSFERS: TOILET: TRANSFERS: TOILET - STEP 1: Does the patient require the assistance of a person or device, or need extra time with toilet transfe rs? Yes. TRANSFERS: TOILET - STEP 2: Does the patient require the assistance of a helper? Yes. TRANSFERS: TOILET - STEP 3: How much assistance does the patient require from the helper? Patient performs half or more of the tr ansferring tasks TRANSFERS: TOILET - STEP 4: Does the patient need only incidental help such as contact guard or steadying during toilet transfer? No. Patient needs more than incidental help TRANSFERS: TOILET - SCORE: 3-MOD TRANSFERS: SHOWER: Activity did not occur on this shift TRANSFERS: SHOWER - SCORE: 0-UNK TRANSFERS: TUB: Activity did not occur on this shift TRANSFERS: TUB - SCORE: 0-UNK LOCOMOTION: WALK: Activity did not occur on this shift LOCOMOTION: WALK - SCORE: 0-UNK LOCOMOTION: WHEELCHAIR: Activity did not occur on this shift LOCOMOTION: WHEELCHAIR - SCORE: 0-UNK COMPREHENSION: COMPREHENSION: TYPE: Both COMPREHENSION - STEP 1: Does the patient require help from a person or device, or need extra time to understand complex and a bstract ideas (such as current events, finances, discharge planning, medical issues, relationships, e tc)? No. COMPREHENSION - STEP 2: Does the patient need extra time, require an assistive device (such as glasses for visual comprehensi on or a hearing aid for auditory comprehension) or does s/he have mild difficulty understanding compl ex and abstract information? Yes. COMPREHENSION - SCORE: 6-ABIGAIL EXPRESSION EXPRESSION: TYPE: Both EXPRESSION - STEP 1: Does the patient require help from a person or device, or need extra time expressing complex and abst ract ideas (such as current events, finances, discharge planning, medical issues, relationships, etc) ? No. EXPRESSION - STEP 2: Does the patient need extra time, require an assistive device (such as augmentive communication syste m or a communication board), OR does s/he have mild difficulty expressing complex and abstract ideas (including mild dysarthria or mild word-find problems)? Yes. EXPRESSION - SCORE: 6-ABIGAIL SOCIAL INTERACTION: SOCIAL INTERACTION - STEP 1: Does the patient require a helper to interact with others in social and therapeutic situations? No. SOCIAL INTERACTION - STEP 2: Does the patient need extra time in social situations, OR does s/he interact with staff, other patien ts, and family members ONLY in structured environments, OR does s/he require medication for social in teraction? Yes, patient needs extra time SOCIAL INTERACTION - SCORE: 6-ABIGAIL PROBLEM SOLVING: PROBLEM SOLVING - STEP 1: Does the patient need help from a person or device, or need extra time to solve complex problems such as managing a checking account or confronting interpersonal problems? No. PROBLEM SOLVING - STEP 2: Does the patient require extra time to make decisions or solve problems, OR does s/he have slight dif ficulty reading, initiating, or self-correcting in unfamiliar situations? Yes, patient needs extra ti me. PROBLEM SOLVING - SCORE: 6-ABIGAIL MEMORY: MEMORY - STEP 1: Does the patient need help from a person or device, or need extra time to remember frequently encount ered people, daily routines, and executing requests? No. MEMORY - STEP 2: Does the patient have slight difficulty recognizing frequently encountered people, daily routines, or executing requests without the need for repetition or using self-initiated or environmental cues to remember? Yes. MEMORY - SCORE: 6-ABIGAIL SIGNATURE PANEL: The following modified sections: Eating - Score, Grooming - Score, Bathing - Score, Dressing - Upper Body - Score, Dressing - Lower Body - Score, Toileting - Score, Bladder Management - Score, Bowel Man agement - Score, Transfers: Bed, Chair, Wheelchair - Score, Transfers: Toilet - Score, Transfers: Vicki wer - Score, Transfers: Tub - Score, Locomotion: Walk - Score, Locomotion: Wheelchair - Score, Compre hension - Score, Expression - Score, Social Interaction - Score, Problem Solving - Score, Memory - Sc ore were [electronically] signed by Roque Raphael on Sat Jan 21 2019 11:10:27 GMT-0600 (Central Standard Time)
[2019-01-21] MEDS: ATORVASTATIN 10 MG TAB PO SCH (20:26)
[2019-01-21] MEDS: AMLODIPINE 5 MG TAB PO SCH (20:26)
[2019-01-21] MEDS: TRAMADOL HCL 50 MG TAB PO PRN (22:35)
--- NOTE | 2019-01-22 01:49 | FAST ---
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 Lamont Mendez M.D. ADMISSION DIAGNOSIS: - Orthopaedic Disorders 08 - Unilateral Hip Fracture (08.11) LEFT HIP INTERTROCHANTERIC FRACTURE. EATING: Activity did not occur on this shift EATING - SCORE: 0-UNK GROOMING: Activity did not occur on this shift GROOMING - SCORE: 0-UNK BATHING: Activity did not occur on this shift BATHING - SCORE: 0-UNK DRESSING - UPPER BODY: Activity did not occur on this shift ARTICLES SCORE Total number of steps: 0 DRESSING - UPPER BODY - SCORE: 0-UNK DRESSING - LOWER BODY: Activity did not occur on this shift ARTICLES SCORE Total number of steps: 0 DRESSING - LOWER BODY - SCORE: 0-UNK TOILETING: TOILETING - STEP 1: Does the patient require the assistance of a person or device, or need extra time with toileting? Yes . TOILETING - STEP 2: Does the patient require the assistance of a helper? Yes. TOILETING - STEP 3: How much assistance does the patient require from the helper? Hands-on assistance from the helper TOILETING - STEP 4: Of the 3 tasks: 1) Adjusting clothing prior to use, 2) Cleansing of perineal area, 3) Adjusting clot jonatan after use; How many tasks does the patient perform WITHOUT assistance of the helper? Two tasks TOILETING - SCORE: 3-MOD BLADDER MANAGEMENT: BLADDER MANAGEMENT - STEP 1: Does the patient control the bladder completely and intentionally without equipment or devices or med ications, and is always continent? Yes. BLADDER MANAGEMENT - SCORE: 7-IND BOWEL MANAGEMENT: BOWEL MANAGEMENT - STEP 1: Does the patient control bowels completely and intentionally without equipment devices or medications AND is always continent? Yes. BOWEL MANAGEMENT - SCORE: 7-IND TRANSFERS: BED, CHAIR, WHEELCHAIR: TRANSFERS: BED, CHAIR, WHEELCHAIR - STEP 1: Does the patient require assistance of a person or device, or need extra time with bed, chair, or whe elchair transfers? Yes. TRANSFERS: BED, CHAIR, WHEELCHAIR - STEP 2: Does the patient require the assistance of a helper? Yes. TRANSFERS: BED, CHAIR, WHEELCHAIR - STEP 3: How much assistance does the patient require from the helper? Lifting of the legs TRANSFERS: BED, CHAIR, WHEELCHAIR - STEP 4: How many legs does the patient require the helper to lift? both legs TRANSFERS: BED, CHAIR, WHEELCHAIR - SCORE: 3-MOD TRANSFERS: TOILET: TRANSFERS: TOILET - STEP 1: Does the patient require the assistance of a person or device, or need extra time with toilet transfe rs? Yes. TRANSFERS: TOILET - STEP 2: Does the patient require the assistance of a helper? Yes. TRANSFERS: TOILET - STEP 3: How much assistance does the patient require from the helper? Patient performs half or more of the tr ansferring tasks TRANSFERS: TOILET - STEP 4: Does the patient need only incidental help such as contact guard or steadying during toilet transfer? Yes. TRANSFERS: TOILET - SCORE: 4-MIN TRANSFERS: SHOWER: Activity did not occur on this shift TRANSFERS: SHOWER - SCORE: 0-UNK TRANSFERS: TUB: Activity did not occur on this shift TRANSFERS: TUB - SCORE: 0-UNK LOCOMOTION: WALK: Activity did not occur on this shift LOCOMOTION: WALK - SCORE: 0-UNK LOCOMOTION: WHEELCHAIR: Activity did not occur on this shift LOCOMOTION: WHEELCHAIR - SCORE: 0-UNK COMPREHENSION: COMPREHENSION: TYPE: Both COMPREHENSION - STEP 1: Does the patient require help from a person or device, or need extra time to understand complex and a bstract ideas (such as current events, finances, discharge planning, medical issues, relationships, e tc)? No. COMPREHENSION - STEP 2: Does the patient need extra time, require an assistive device (such as glasses for visual comprehensi on or a hearing aid for auditory comprehension) or does s/he have mild difficulty understanding compl ex and abstract information? Yes. COMPREHENSION - SCORE: 6-ABIGAIL EXPRESSION EXPRESSION: TYPE: Both EXPRESSION - STEP 1: Does the patient require help from a person or device, or need extra time expressing complex and abst ract ideas (such as current events, finances, discharge planning, medical issues, relationships, etc) ? No. EXPRESSION - STEP 2: Does the patient need extra time, require an assistive device (such as augmentive communication syste m or a communication board), OR does s/he have mild difficulty expressing complex and abstract ideas (including mild dysarthria or mild word-find problems)? No. EXPRESSION - SCORE: 7-IND SOCIAL INTERACTION: SOCIAL INTERACTION - STEP 1: Does the patient require a helper to interact with others in social and therapeutic situations? No. SOCIAL INTERACTION - STEP 2: Does the patient need extra time in social situations, OR does s/he interact with staff, other patien ts, and family members ONLY in structured environments, OR does s/he require medication for social in teraction? No. SOCIAL INTERACTION - SCORE: 7-IND PROBLEM SOLVING: PROBLEM SOLVING - STEP 1: Does the patient need help from a person or device, or need extra time to solve complex problems such as managing a checking account or confronting interpersonal problems? No. PROBLEM SOLVING - STEP 2: Does the patient require extra time to make decisions or solve problems, OR does s/he have slight dif ficulty reading, initiating, or self-correcting in unfamiliar situations? No. PROBLEM SOLVING - SCORE: 7-IND MEMORY: MEMORY - STEP 1: Does the patient need help from a person or device, or need extra time to remember frequently encount ered people, daily routines, and executing requests? No. MEMORY - STEP 2: Does the patient have slight difficulty recognizing frequently encountered people, daily routines, or executing requests without the need for repetition or using self-initiated or environmental cues to remember? No. MEMORY - SCORE: 7-IND SIGNATURE PANEL: The following modified sections: Eating - Score, Grooming - Score, Bathing - Score, Dressing - Upper Body - Score, Dressing - Lower Body - Score, Toileting - Score, Bladder Management - Score, Bowel Man agement - Score, Transfers: Bed, Chair, Wheelchair - Score, Transfers: Shower - Score, Transfers: Tub - Score, Locomotion: Walk - Score, Locomotion: Wheelchair - Score, Comprehension - Score, Expression - Score, Social Interaction - Score, Problem Solving - Score, Memory - Score, Transfers: Toilet - Sc ore were [electronically] signed by Eva Zhang CNA on WedJan 22 2019 01:48:46 T-0600 ([facility])
[2019-01-22] MEDS: DOCUSATE NA 100 MG CAP PO SCH ×2 (08:00→20:00)
[2019-01-22] MEDS: ENOXAPARIN 40 MG/0.4 ML SQ SCH (08:06)
[2019-01-22] MEDS: INSULIN -REGULAR HUMAN 50 UNIT/0.5 ML ML SQ SCH ×4 (08:07→21:34)
[2019-01-22] MEDS: FORMULATION-R RECTAL 30GM PR PRN ×2 (08:10→21:24)
[2019-01-22] MEDS: NICOTINE 21 MG/PAT TD SCH (08:10)
[2019-01-22] MEDS: LOSARTAN POTASSIUM 50 MG TABLET PO SCH (08:11)
[2019-01-22] MEDS: GABAPENTIN 100 MG CAP PO SCH ×2 (08:11→20:03)
[2019-01-22] MEDS: GLIMEPIRIDE 2 MG TABLET PO SCH (08:11)
[2019-01-22] MEDS: FERROUS SULFATE 325 MG TAB PO SCH (08:12)
[2019-01-22] MEDS: NEBIVOLOL HCL 20 MG TABLET PO SCH (08:12)
[2019-01-22] MEDS: FE SULF/FA/VIT B COMP & C TAB PO SCH (08:12)
[2019-01-22] MEDS: METFORMIN ER 500 MG TAB PO SCH (08:13)
[2019-01-22] MEDS: PROMOD 30 ML DOSE PO SCH ×2 (08:14→20:02)
--- NOTE | 2019-01-22 11:03 | FAST ---
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 Lamont Mendez M.D. ADMISSION DIAGNOSIS: - Orthopaedic Disorders 08 - Unilateral Hip Fracture (08.11) LEFT HIP INTERTROCHANTERIC FRACTURE. EATING: EATING - STEP 1: Does the patient require the assistance of a person or device, or need extra time when eating? Yes. EATING - STEP 2: Does the patient require the assistance of a helper? No, patient only requires an assistive device, O R s/he takes more than reasonable time to eat, OR there is a safety concern, OR s/he requires modifie d food consistency EATING - SCORE: 6-ABIGAIL GROOMING: Comb/brush hair Oral care GROOMING - STEP 1: Does the patient require the assistance of a person or device, or need extra time when grooming? Yes. GROOMING - STEP 2: Does the patient require the assistance of a helper? No. The patient only requires an assistive devic e, OR takes more than reasonable time to groom, OR there is a concern for safety as the patient groom s GROOMING - SCORE: 6-ABIGAIL BATHING: Activity did not occur on this shift BATHING - SCORE: 0-UNK DRESSING - UPPER BODY: T-shirt/pullover shirt (four steps) ARTICLES SCORE Total number of steps: 4 DRESSING - UPPER BODY - STEP 1: Does the patient require help from a person or device, or need extra time when dressing above the [address]? Yes. DRESSING - UPPER BODY - STEP 2: Does the patient require the assistance of a helper? No. Patient only requires an assistive device, s uch as a button hook, velcro, or metrologist. OR s/he takes more than reasonable time as s/he dresses the upper body. OR there is a concern for safety when s/he dresses the upper body DRESSING - UPPER BODY - SCORE: 6-ABIGAIL DRESSING - LOWER BODY: ARTICLES SCORE Total number of steps: 3 DRESSING - LOWER BODY - STEP 1: Does the patient require help from a person or device, or need extra time when dressing below the [address]? Yes. DRESSING - LOWER BODY - STEP 2: Does the patient require the assistance of a helper? No. Patient requires an assistive device such as a metrologist. OR s/he takes more than reasonable time as s/he dresses the lower body, OR there is a con cern for safety when s/he dresses the lower body DRESSING - LOWER BODY - SCORE: 6-ABIGAIL TOILETING: TOILETING - STEP 1: Does the patient require the assistance of a person or device, or need extra time with toileting? Yes . TOILETING - STEP 2: Does the patient require the assistance of a helper? Yes. TOILETING - STEP 3: How much assistance does the patient require from the helper? Only supervision TOILETING - SCORE: 5-SUP BLADDER MANAGEMENT: BLADDER MANAGEMENT - STEP 1: Does the patient control the bladder completely and intentionally without equipment or devices or med ications, and is always continent? No. BLADDER MANAGEMENT - STEP 2: Does the patient require the assistance of a helper? No, patient requires and independently uses an a ssistive device, such as a urinal, bedpan, bedside commode, catheter, absorbent pad, or collecting de vice BLADDER MANAGEMENT - SCORE: 6-ABIGAIL BOWEL MANAGEMENT: Activity did not occur on this shift BOWEL MANAGEMENT - SCORE: 7-IND TRANSFERS: BED, CHAIR, WHEELCHAIR: TRANSFERS: BED, CHAIR, WHEELCHAIR - STEP 1: Does the patient require assistance of a person or device, or need extra time with bed, chair, or whe elchair transfers? Yes. TRANSFERS: BED, CHAIR, WHEELCHAIR - STEP 2: Does the patient require the assistance of a helper? Yes. TRANSFERS: BED, CHAIR, WHEELCHAIR - STEP 3: How much assistance does the patient require from the helper? Steadying/guiding assistance TRANSFERS: BED, CHAIR, WHEELCHAIR - SCORE: 4-MIN TRANSFERS: TOILET: TRANSFERS: TOILET - STEP 1: Does the patient require the assistance of a person or device, or need extra time with toilet transfe rs? Yes. TRANSFERS: TOILET - STEP 2: Does the patient require the assistance of a helper? Yes. TRANSFERS: TOILET - STEP 3: How much assistance does the patient require from the helper? Patient performs half or more of the tr ansferring tasks TRANSFERS: TOILET - STEP 4: Does the patient need only incidental help such as contact guard or steadying during toilet transfer? Yes. TRANSFERS: TOILET - SCORE: 4-MIN TRANSFERS: SHOWER: Activity did not occur on this shift TRANSFERS: SHOWER - SCORE: 0-UNK TRANSFERS: TUB: Activity did not occur on this shift TRANSFERS: TUB - SCORE: 0-UNK LOCOMOTION: WALK: Activity did not occur on this shift LOCOMOTION: WALK - SCORE: 0-UNK LOCOMOTION: WHEELCHAIR: Activity did not occur on this shift LOCOMOTION: WHEELCHAIR - SCORE: 0-UNK COMPREHENSION: COMPREHENSION: TYPE: Both COMPREHENSION - STEP 1: Does the patient require help from a person or device, or need extra time to understand complex and a bstract ideas (such as current events, finances, discharge planning, medical issues, relationships, e tc)? No. COMPREHENSION - STEP 2: Does the patient need extra time, require an assistive device (such as glasses for visual comprehensi on or a hearing aid for auditory comprehension) or does s/he have mild difficulty understanding compl ex and abstract information? Yes. COMPREHENSION - SCORE: 6-ABIGAIL EXPRESSION EXPRESSION: TYPE: Both EXPRESSION - STEP 1: Does the patient require help from a person or device, or need extra time expressing complex and abst ract ideas (such as current events, finances, discharge planning, medical issues, relationships, etc) ? No. EXPRESSION - STEP 2: Does the patient need extra time, require an assistive device (such as augmentive communication syste m or a communication board), OR does s/he have mild difficulty expressing complex and abstract ideas (including mild dysarthria or mild word-find problems)? Yes. EXPRESSION - SCORE: 6-ABIGAIL SOCIAL INTERACTION: SOCIAL INTERACTION - STEP 1: Does the patient require a helper to interact with others in social and therapeutic situations? No. SOCIAL INTERACTION - STEP 2: Does the patient need extra time in social situations, OR does s/he interact with staff, other patien ts, and family members ONLY in structured environments, OR does s/he require medication for social in teraction? Yes, patient needs extra time SOCIAL INTERACTION - SCORE: 6-ABIGAIL PROBLEM SOLVING: PROBLEM SOLVING - STEP 1: Does the patient need help from a person or device, or need extra time to solve complex problems such as managing a checking account or confronting interpersonal problems? No. PROBLEM SOLVING - STEP 2: Does the patient require extra time to make decisions or solve problems, OR does s/he have slight dif ficulty reading, initiating, or self-correcting in unfamiliar situations? Yes, patient needs extra ti me. PROBLEM SOLVING - SCORE: 6-ABIGAIL MEMORY: MEMORY - STEP 1: Does the patient need help from a person or device, or need extra time to remember frequently encount ered people, daily routines, and executing requests? No. MEMORY - STEP 2: Does the patient have slight difficulty recognizing frequently encountered people, daily routines, or executing requests without the need for repetition or using self-initiated or environmental cues to remember? Yes. MEMORY - SCORE: 6-ABIGAIL SIGNATURE PANEL: The following modified sections: Eating - Score, Grooming - Score, Bathing - Score, Dressing - Upper Body - Score, Dressing - Lower Body - Score, Toileting - Score, Bladder Management - Score, Bowel Man agement - Score, Transfers: Bed, Chair, Wheelchair - Score, Transfers: Toilet - Score, Transfers: Vicki wer - Score, Transfers: Tub - Score, Locomotion: Walk - Score, Locomotion: Wheelchair - Score, Compre hension - Score, Expression - Score, Social Interaction - Score, Problem Solving - Score, Memory - Sc ore were [electronically] signed by Roque Raphael on WedJan 22 2019 11:01:54 [id number] (Central Daylight Time)
[2019-01-22] MEDS: AMLODIPINE 5 MG TAB PO SCH (20:03)
[2019-01-22] MEDS: ATORVASTATIN 10 MG TAB PO SCH (20:03)
[2019-01-23] MEDS: ENOXAPARIN 40 MG/0.4 ML SQ SCH (06:55)
[2019-01-23] MEDS: DOCUSATE NA 100 MG CAP PO SCH ×2 (08:00→20:00)
[2019-01-23] MEDS: NICOTINE 21 MG/PAT TD SCH (08:26)
[2019-01-23] MEDS: NEBIVOLOL HCL 20 MG TABLET PO SCH (08:27)
[2019-01-23] MEDS: FE SULF/FA/VIT B COMP & C TAB PO SCH (08:27)
[2019-01-23] MEDS: LOSARTAN POTASSIUM 50 MG TABLET PO SCH (08:27)
[2019-01-23] MEDS: FERROUS SULFATE 325 MG TAB PO SCH (08:28)
[2019-01-23] MEDS: GABAPENTIN 100 MG CAP PO SCH ×2 (08:28→20:39)
[2019-01-23] MEDS: GLIMEPIRIDE 2 MG TABLET PO SCH (08:28)
[2019-01-23] MEDS: METFORMIN ER 500 MG TAB PO SCH (08:31)
[2019-01-23] MEDS: PROMOD 30 ML DOSE PO SCH ×2 (08:35→20:38)
[2019-01-23] MEDS: INSULIN -REGULAR HUMAN 50 UNIT/0.5 ML ML SQ SCH ×4 (09:36→20:40)
[2019-01-23] MEDS: TRAMADOL HCL 50 MG TAB PO PRN ×2 (12:24→20:39)
--- NOTE | 2019-01-23 14:52 | FAST ---
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 Lamont Mendez M.D. ADMISSION DIAGNOSIS: - Orthopaedic Disorders 08 - Unilateral Hip Fracture (08.) LEFT HIP INTERTROCHANTERIC FRACTURE. EATING: EATING - STEP 1: Does the patient require the assistance of a person or device, or need extra time when eating? Yes. EATING - STEP 2: Does the patient require the assistance of a helper? Yes. EATING - STEP 3: Does the patient perform half or more of the eating tasks? Yes. EATING - STEP 4: Does the patient need only supervision, cuing, coaxing OR help to apply an orthosis OR help to cut fo od, open containers, pour liquids, or butter bread? Yes. EATING - SCORE: 5-SUP GROOMING: Comb/brush hair Oral care Wash, rinse, and dry face Wash, rinse, and dry hands GROOMING - STEP 1: Does the patient require the assistance of a person or device, or need extra time when grooming? Yes. GROOMING - STEP 2: Does the patient require the assistance of a helper? No. The patient only requires an assistive devic e, OR takes more than reasonable time to groom, OR there is a concern for safety as the patient groom s GROOMING - SCORE: 6-ABIGAIL BATHING: Activity did not occur on this shift BATHING - SCORE: 0-UNK DRESSING - UPPER BODY: Bra (three steps) Button down shirt or blouse - NOT tucked in (four steps) T-shirt/pullover shirt (four steps) ARTICLES SCORE Total number of steps: 11 DRESSING - UPPER BODY - STEP 1: Does the patient require help from a person or device, or need extra time when dressing above the [address]? Yes. DRESSING - UPPER BODY - STEP 2: Does the patient require the assistance of a helper? No. Patient only requires an assistive device, s uch as a button hook, velcro, or clinical resource nurse. OR s/he takes more than reasonable time as s/he dresses the upper body. OR there is a concern for safety when s/he dresses the upper body DRESSING - UPPER BODY - SCORE: 6-ABIGAIL DRESSING - LOWER BODY: Elastic waist pants (three steps) Sock - Left foot (one step) Sock - Right foot (one step) Tied or buckled shoe - Left foot (two steps) Tied or buckled shoe - Right foot (two steps) Zippered pants (four steps) ARTICLES SCORE Total number of steps: 13 DRESSING - LOWER BODY - STEP 1: Does the patient require help from a person or device, or need extra time when dressing below the [address]? Yes. DRESSING - LOWER BODY - STEP 2: Does the patient require the assistance of a helper? No. Patient requires an assistive device such as a clinical resource nurse. OR s/he takes more than reasonable time as s/he dresses the lower body, OR there is a con cern for safety when s/he dresses the lower body DRESSING - LOWER BODY - SCORE: 6-ABIGAIL TOILETING: TOILETING - STEP 1: Does the patient require the assistance of a person or device, or need extra time with toileting? Yes . TOILETING - STEP 2: Does the patient require the assistance of a helper? No. TOILETING - SCORE: 6-ABIGAIL BLADDER MANAGEMENT: BLADDER MANAGEMENT - STEP 1: Does the patient control the bladder completely and intentionally without equipment or devices or med ications, and is always continent? No. BLADDER MANAGEMENT - STEP 2: Does the patient require the assistance of a helper? No, patient only requires extra time BLADDER MANAGEMENT - SCORE: 6-ABIGAIL BLADDER MANAGEMENT - FREQUENCY OF ACCIDENTS: BLADDER MANAGEMENT(FA) - STEP 1: How many accidents has the patient had during the current shift? 0 BOWEL MANAGEMENT: BOWEL MANAGEMENT - STEP 1: Does the patient control bowels completely and intentionally without equipment devices or medications AND is always continent? No. BOWEL MANAGEMENT - STEP 2: Does the patient require the assistance of a helper? No, patient requires extra time BOWEL MANAGEMENT - SCORE: 6-ABIGAIL BOWEL MANAGEMENT - FREQUENCY OF ACCIDENTS: BOWEL MANAGEMENT(FA) - STEP 1: How many accidents has the patient had during the current shift? 0 TRANSFERS: BED, CHAIR, WHEELCHAIR: TRANSFERS: BED, CHAIR, WHEELCHAIR - STEP 1: Does the patient require assistance of a person or device, or need extra time with bed, chair, or whe elchair transfers? Yes. TRANSFERS: BED, CHAIR, WHEELCHAIR - STEP 2: Does the patient require the assistance of a helper? Yes. TRANSFERS: BED, CHAIR, WHEELCHAIR - STEP 3: How much assistance does the patient require from the helper? Steadying/guiding assistance TRANSFERS: BED, CHAIR, WHEELCHAIR - SCORE: 4-MIN TRANSFERS: TOILET: TRANSFERS: TOILET - STEP 1: Does the patient require the assistance of a person or device, or need extra time with toilet transfe rs? Yes. TRANSFERS: TOILET - STEP 2: Does the patient require the assistance of a helper? Yes. TRANSFERS: TOILET - STEP 3: How much assistance does the patient require from the helper? Only supervision, cuing, coaxing, OR he lp to set out transfer equipment or to lock brakes and/or lift foot rests TRANSFERS: TOILET - SCORE: 5-SUP TRANSFERS: SHOWER: Activity did not occur on this shift TRANSFERS: SHOWER - SCORE: 0-UNK TRANSFERS: TUB: Activity did not occur on this shift TRANSFERS: TUB - SCORE: 0-UNK LOCOMOTION: WALK: Activity did not occur on this shift LOCOMOTION: WALK - SCORE: 0-UNK LOCOMOTION: WHEELCHAIR: LOCOMOTION: WHEELCHAIR - STEP 1: Does the patient need help to go 150 feet in a wheelchair? Yes. LOCOMOTION: WHEELCHAIR - STEP 2: How much assistance does the patient need from the helper? Only supervision, cuing, or coaxing LOCOMOTION: WHEELCHAIR - SCORE: 5-SUP COMPREHENSION: COMPREHENSION: TYPE: Both COMPREHENSION - STEP 1: Does the patient require help from a person or device, or need extra time to understand complex and a bstract ideas (such as current events, finances, discharge planning, medical issues, relationships, e tc)? No. COMPREHENSION - STEP 2: Does the patient need extra time, require an assistive device (such as glasses for visual comprehensi on or a hearing aid for auditory comprehension) or does s/he have mild difficulty understanding compl ex and abstract information? Yes. COMPREHENSION - SCORE: 6-ABIGAIL EXPRESSION EXPRESSION: TYPE: Both EXPRESSION - STEP 1: Does the patient require help from a person or device, or need extra time expressing complex and abst ract ideas (such as current events, finances, discharge planning, medical issues, relationships, etc) ? No. EXPRESSION - STEP 2: Does the patient need extra time, require an assistive device (such as augmentive communication syste m or a communication board), OR does s/he have mild difficulty expressing complex and abstract ideas (including mild dysarthria or mild word-find problems)? Yes. EXPRESSION - SCORE: 6-ABIGAIL SOCIAL INTERACTION: SOCIAL INTERACTION - STEP 1: Does the patient require a helper to interact with others in social and therapeutic situations? No. SOCIAL INTERACTION - STEP 2: Does the patient need extra time in social situations, OR does s/he interact with staff, other patien ts, and family members ONLY in structured environments, OR does s/he require medication for social in teraction? Yes, patient needs extra time SOCIAL INTERACTION - SCORE: 6-ABIGAIL PROBLEM SOLVING: PROBLEM SOLVING - STEP 1: Does the patient need help from a person or device, or need extra time to solve complex problems such as managing a checking account or confronting interpersonal problems? No. PROBLEM SOLVING - STEP 2: Does the patient require extra time to make decisions or solve problems, OR does s/he have slight dif ficulty reading, initiating, or self-correcting in unfamiliar situations? Yes, patient needs extra ti me. PROBLEM SOLVING - SCORE: 6-ABIGAIL MEMORY: MEMORY - STEP 1: Does the patient need help from a person or device, or need extra time to remember frequently encount ered people, daily routines, and executing requests? No. MEMORY - STEP 2: Does the patient have slight difficulty recognizing frequently encountered people, daily routines, or executing requests without the need for repetition or using self-initiated or environmental cues to remember? Yes. MEMORY - SCORE: 6-ABIGAIL SIGNATURE PANEL: The following modified sections: Eating - Score, Grooming - Score, Bathing - Score, Dressing - Upper Body - Score, Dressing - Lower Body - Score, Toileting - Score, Bladder Management - Score, Bowel Man agement - Score, Transfers: Bed, Chair, Wheelchair - Score, Transfers: Toilet - Score, Transfers: Vicki wer - Score, Transfers: Tub - Score, Locomotion: Walk - Score, Locomotion: Wheelchair - Score, Compre hension - Score, Expression - Score, Social Interaction - Score, Problem Solving - Score, Memory - Sc ore were [electronically] signed by Sophie Kaiser C.N.A. on WedJan 23 2019 14:52:21 T-0500 ([place] Day[place])
--- NOTE | 2019-01-23 15:24 | FAST ---
ENCOUNTER DATE AND TIME: 01/23/2019 08:00 (CDT) NAME VENESSA NUNO DATE OF : 1940 DATE OF ADMISSION: 01/19/2019 16:37 (TOP FORMER) PHONE: AGE: 78 SSN# [id number] GENDER: Female ENCOUNTER PHYSICIAN: Dr. Lamont Mendez M.D. ADMISSION DIAGNOSIS: - Orthopaedic Disorders 08 - Unilateral Hip Fracture (08.11) LEFT HIP INTERTROCHANTERIC FRACTURE. EATING: Activity did not occur on this shift EATING - SCORE: 0-UNK GROOMING: Comb/brush hair Wash, rinse, and dry face Wash, rinse, and dry hands GROOMING - STEP 1: Does the patient require the assistance of a person or device, or need extra time when grooming? No. GROOMING - SCORE: 7-IND BATHING: Abdomen Buttocks Chest Left arm Left lower leg and foot Left upper leg Perineal area Right arm Right lower leg and foot Right upper leg BATHING - STEP 1: Does the patient require the assistance of a person or device, or need extra time when bathing? Yes. BATHING - STEP 2: Does the patient require the assistance of a helper? Yes. BATHING - STEP 3: How much assistance does the patient require from the helper? Only incidental help such as placement of a wash cloth in his/her hand a few times as s/he bathes OR help to bathe just one or two areas of the body BATHING - SCORE: 4-MIN DRESSING - UPPER BODY: Bra (three steps) T-shirt/pullover shirt (four steps) ARTICLES SCORE Total number of steps: 7 DRESSING - UPPER BODY - STEP 1: Does the patient require help from a person or device, or need extra time when dressing above the [address]? Yes. DRESSING - UPPER BODY - STEP 2: Does the patient require the assistance of a helper? Yes. DRESSING - UPPER BODY - STEP 3: Does the helper touch the patient while dressing? No. DRESSING - UPPER BODY - SCORE: 5-SUP DRESSING - LOWER BODY: Sock - Left foot (one step) Sock - Right foot (one step) Tied or buckled shoe - Left foot (two steps) Tied or buckled shoe - Right foot (two steps) Underwear (three steps) Zippered pants (four steps) ARTICLES SCORE Total number of steps: 13 DRESSING - LOWER BODY - STEP 1: Does the patient require help from a person or device, or need extra time when dressing below the [address]? Yes. DRESSING - LOWER BODY - STEP 2: Does the patient require the assistance of a helper? Yes. DRESSING - LOWER BODY - STEP 3: Does the helper touch the patient while dressing? Yes. DRESSING - LOWER BODY - STEP 4: How many of the total steps does the patient complete on his/her own? 10 DRESSING - LOWER BODY - SCORE: 4-MIN TOILETING: TOILETING - STEP 1: Does the patient require the assistance of a person or device, or need extra time with toileting? Yes . TOILETING - STEP 2: Does the patient require the assistance of a helper? Yes. TOILETING - STEP 3: How much assistance does the patient require from the helper? Hands-on assistance from the helper TOILETING - STEP 4: Of the 3 tasks: 1) Adjusting clothing prior to use, 2) Cleansing of perineal area, 3) Adjusting clot jonatan after use; How many tasks does the patient perform WITHOUT assistance of the helper? Three tasks with steadying assistance from the helper TOILETING - SCORE: 4-MIN BLADDER MANAGEMENT: Activity did not occur on this shift BLADDER MANAGEMENT - SCORE: 7-IND BOWEL MANAGEMENT: Activity did not occur on this shift BOWEL MANAGEMENT - SCORE: 7-IND TRANSFERS: BED, CHAIR, WHEELCHAIR: Activity did not occur on this shift TRANSFERS: BED, CHAIR, WHEELCHAIR - SCORE: 0-UNK TRANSFERS: TOILET: TRANSFERS: TOILET - STEP 1: Does the patient require the assistance of a person or device, or need extra time with toilet transfe rs? Yes. TRANSFERS: TOILET - STEP 2: Does the patient require the assistance of a helper? Yes. TRANSFERS: TOILET - STEP 3: How much assistance does the patient require from the helper? Patient performs half or more of the tr ansferring tasks TRANSFERS: TOILET - STEP 4: Does the patient need only incidental help such as contact guard or steadying during toilet transfer? Yes. TRANSFERS: TOILET - SCORE: 4-MIN TRANSFERS: SHOWER: TRANSFERS: SHOWER - STEP 1: Does the patient require the assistance of a person or device, or need extra time with shower transfe rs? Yes. TRANSFERS: SHOWER - STEP 2: Does the patient require the assistance of a helper? Yes. TRANSFERS: SHOWER - STEP 3: How much assistance does the patient require from the helper? Only incidental help such as contact gu arding or steadying during shower transfers, or help to lift one leg into the shower TRANSFERS: SHOWER - SCORE: 4-MIN TRANSFERS: TUB: Activity did not occur on this shift TRANSFERS: TUB - SCORE: 0-UNK LOCOMOTION: WALK: Activity did not occur on this shift LOCOMOTION: WALK - SCORE: 0-UNK LOCOMOTION: WHEELCHAIR: Activity did not occur on this shift LOCOMOTION: WHEELCHAIR - SCORE: 0-UNK LOCOMOTION: STAIRS: Activity did not occur on this shift LOCOMOTION: STAIRS - SCORE: 0-UNK COMPREHENSION: COMPREHENSION: TYPE: Visual COMPREHENSION - STEP 1: Does the patient require help from a person or device, or need extra time to understand complex and a bstract ideas (such as current events, finances, discharge planning, medical issues, relationships, e tc)? Yes. COMPREHENSION - STEP 2: Does the patient require help to understand questions or statements about basic needs or ideas (such as hunger, thirst, sleep, safety, daily schedule, room location, or discomfort) half or more of the t yessica? No. COMPREHENSION - STEP 3: How often does the patient need help to understand directions and conversation about basic needs? Les s than 10% of the time COMPREHENSION - SCORE: 5-SUP EXPRESSION EXPRESSION: TYPE: Non-Vocal EXPRESSION - STEP 1: Does the patient require help from a person or device, or need extra time expressing complex and abst ract ideas (such as current events, finances, discharge planning, medical issues, relationships, etc) ? No. EXPRESSION - STEP 2: Does the patient need extra time, require an assistive device (such as augmentive communication syste m or a communication board), OR does s/he have mild difficulty expressing complex and abstract ideas (including mild dysarthria or mild word-find problems)? No. EXPRESSION - SCORE: 7-IND SOCIAL INTERACTION: SOCIAL INTERACTION - STEP 1: Does the patient require a helper to interact with others in social and therapeutic situations? No. SOCIAL INTERACTION - STEP 2: Does the patient need extra time in social situations, OR does s/he interact with staff, other patien ts, and family members ONLY in structured environments, OR does s/he require medication for social in teraction? No. SOCIAL INTERACTION - SCORE: 7-IND PROBLEM SOLVING: PROBLEM SOLVING - STEP 1: Does the patient need help from a person or device, or need extra time to solve complex problems such as managing a checking account or confronting interpersonal problems? Yes. PROBLEM SOLVING - STEP 2: Does the patient solve basic routine problems half or more of the time? Yes. PROBLEM SOLVING - STEP 3: How often does the patient need help to solve basic routine problems? Less than 10% of the time PROBLEM SOLVING - SCORE: 5-SUP MEMORY: MEMORY - STEP 1: Does the patient need help from a person or device, or need extra time to remember frequently encount ered people, daily routines, and executing requests? Yes. MEMORY - STEP 2: How often does the patient need help to remember frequently encountered people, daily routines, and e xecuting requests? Less than 10% of the time MEMORY - SCORE: 5-SUP SIGNATURE PANEL: The following modified sections: Eating - Score, Grooming - Score, Bathing - Score, Dressing - Upper Body - Score, Dressing - Lower Body - Score, Toileting - Score, Transfers: Bed, Chair, Wheelchair - S core, Transfers: Toilet - Score, Transfers: Shower - Score, Transfers: Tub - Score, Comprehension - S core, Expression - Score, Social Interaction - Score, Problem Solving - Score, Memory - Score were [e lectronically] signed by OMAYRA Og on WedJan 23 2019 15:22:53 T-0500 ([facility])
--- NOTE | 2019-01-23 17:54 | R.PN ---
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 Pt denied any depression. Ambulated 225' with rolling waker and standby assistance. Self-propelled wheelchair 200' with standby assistance. Glucose 143 to 281. Ambulated 500' with standby assistance using a rolling walker. Up and down 15 steps with standby assi stance. VITAL SIGNS Temperature: 97.8 F SBP/DBP: 164/76 Pulse: 69 Resp: 16 MEDICATION ALLERGIES: No Known Drug Allergies (NKDA) ENVIRONMENTAL ALLERGIES: None Known - Substance Allergies None Known - Other Allergies None Known NURSING: - Shower allowing shower - Lab Results blood Sugar Check ACHS - Skin care per protocol PRECAUTIONS: - Posterior Hip Precaution No adduction across midline No external rotation No hip flexion >90 degrees No internal rotation No wheel chair propulsion - Weight Bearing Precaution TTWB left LE ACTIVITIES OOB only with supervision THERAPIES: - Occupational Therapy Evaluate and Treat. - Physical Therapy Evaluate and Treat. PHYSICAL EXAM - Gen Alert and awake Lying in bed No apparent distress Oriented to: person, time, and place - Skin No breakdown No abnormalities - Eyes No abnormalities - ENMT No abnormalities - Neck No abnormalities - CVS RRR - Chest Clear - Abd +bowel sounds - GI Soft Deferred - No abnormalities - Ext Trace edema in left leg and foot. - MSK 4+/5 weakness in left lower extremity. - Neuro 4/5 strength left lower extremity. - Psych No abnormalities ASSESSMENT: Pt. is a 78 yo Right-handed white female.Her impairment category is Orthopaedic Disorders 08 - Unila teral Hip Fracture (06.25).Pre-morbidly, Pt. was independent/mod-I in Transfers Control, Communicatio n, Social Cognition, Self-Care, Locomotion, and Sphincter Control; and she had good Sphincter Control .Currently, she has deficits of Safety Awareness, Transfers Control, Balance, Locomotion, Endurance, and Self-Care.Pt. is now referred to [facility] for acute in-patient rehabilit ation in order to maximize patient's functional independence in activities of daily living, strength, ROM, and mobility.- Rehab Goal Patient has realistic goal of being discharged at assistance level 6-Raquel to reside at Home with Fam susy/Relatives. MDM/PLAN: - Physical Therapy Decreased range of motion - to improve, our physical therapists will perform initial evaluation of p t's status upon admission and devise an individualized program for increasing patient's Range of Lon on. Gait dysfunction - to improve, our physical therapists will perform initial evaluation of pt's statu s upon admission and devise an individualized program for Gait Training, and Wheel Chair mobility Inability to transfer - to improve, our physical therapists will perform initial evaluation of pt's status upon admission and devise an individualized program for Bed mobility Need for home safety evaluation - to improve, our physical therapists will perform initial evaluatio n of pt's status upon admission and devise an individualized program for Home Evaluation Need in caregiver upon discharge - to improve, our physical therapists will perform initial evaluati on of pt's status upon admission and devise an individualized program for Caregiver Training New precaution - to improve, our physical therapists will perform initial evaluation of pt's status upon admission and devise an individualized program for Patient precaution education Edema - to improve, our physical therapists will perform initial evaluation of pt's status upon admis zohra and devise an individualized program for Elevation Training, and Lymphedema Therapy Poor balance - to improve, our physical therapists will perform initial evaluation of pt's status up on admission and devise an individualized program for Balance Training Poor endurance - to improve, our physical therapists will perform initial evaluation of pt's status upon admission and devise an individualized program for Endurance Training Weakness - to improve, our physical therapists will perform initial evaluation of pt's status upon a dmission and devise an individualized program for Aquatic Therapy, Neuromuscular Reeducation, and Str engthening Achieving independence - to improve, our physical therapists will perform initial evaluation of pt's status upon admission and devise an individualized program for Community Reintegration Activities - Occupational Therapy ADL deficits - to improve, our occupation therapists will perform initial evaluation of pt's status upon admission and devise an individualized program for Bathing, Bed mobility, Community Reintegratio n, Cooking, Dressing, Eating, Fine Motor Skills, Grooming, Homemaking, Kitchen Mobility, Laundry, Pat ient Education, Safety Awareness, Splinting - Positioning, Transfers(Toilet, Tub, Shower), and Wheel Chair Management Need for critical care educator - to improve, our occupation therapists will perform initial evaluation of pt's status upon admission and devise an individualized program for Caregiver Training Weakness - to improve, our occupation therapists will perform initial evaluation of pt's status upon admission and devise an individualized program for Aquatic Therapy, Balance, Endurance, UE ROM, and UE strengthening - Anterior Hip Precaution No abduction No active extension No adduction across midline No external rotation No hip flexion >90 degrees No internal rotation - Diet - Liquid Texture Continue Regular - Tube Feed Continue N/A - Diet Type Continue Regular - Posterior Hip Precaution No adduction across midline No external rotation No hip flexion >90 degrees No internal rotation No wheel chair propulsion - Lab Results blood Sugar Check ACHS - Weight Bearing Precaution TTWB left LE - Skin care per protocol - Diet - Solid Texture Continue Regular - Shower allowing shower FUNCTIONAL STATUS: UPDATED AT WEEKLY TEAM CONFERENCE - Bladder Same accident frequency: 7-Ind - No accidents in the past 7 days - Bowel Same accident frequency: 7-Ind - No accidents in the past 7 days - Walking Same score based on distance walked: 2(50-149ft) - Wheelchair Same score based on distance traveled: 0(N/A) FUNCTIONAL STATUS: - Self-Care A. Eating Raquel B. Grooming sup C. Bathing sup D. Dressing - Upper sup E. Dressing - Lower Dep F. Toileting maxA - Sphincter Control G: Bladder control Ind H: Bowel control Ind - Transfers Control I. Bed/Chair/Wheelchair CGA J. Toilet CGA K. Tub/Shower ADNO - Locomotion L. Walk/Wheelchair (C) Salaazr L. Walk/Wheelchair (W) Salazar M. Stairs ADNO - Communication N. Comprehension (B) Ind O. Expression (B) Ind - Social Cognition P. Social Interaction Ind Q. Problem Solving Ind R. Memory Ind - Endurance Fair - Balance Fair - Safety Awareness Fair CURRENT FUNC. DEFICITS: Safety Awareness, Transfers Control, Balance, Locomotion, Endurance, and Self-Care SIGNATURE PANEL: (CDT)
[2019-01-23] MEDS: AMLODIPINE 5 MG TAB PO SCH (20:39)
[2019-01-23] MEDS: ATORVASTATIN 10 MG TAB PO SCH (20:39)
--- NOTE | 2019-01-24 02:19 | FAST ---
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 Lamont Mendez M.D. ADMISSION DIAGNOSIS: - Orthopaedic Disorders 08 - Unilateral Hip Fracture (08.11) LEFT HIP INTERTROCHANTERIC FRACTURE. EATING: Activity did not occur on this shift EATING - SCORE: 0-UNK GROOMING: Oral care Wash, rinse, and dry face Wash, rinse, and dry hands GROOMING - STEP 1: Does the patient require the assistance of a person or device, or need extra time when grooming? Yes. GROOMING - STEP 2: Does the patient require the assistance of a helper? Yes. GROOMING - STEP 3: How much assistance does the patient require from the helper? Only prior equipment preparation/set up from the helper GROOMING - SCORE: 5-SUP BATHING: Activity did not occur on this shift BATHING - SCORE: 0-UNK DRESSING - UPPER BODY: Patient is not dressing in public clothing ARTICLES SCORE Total number of steps: 0 DRESSING - UPPER BODY - SCORE: 0-UNK DRESSING - LOWER BODY: Patient is not dressing in public clothing ARTICLES SCORE Total number of steps: 0 DRESSING - LOWER BODY - SCORE: 0-UNK TOILETING: TOILETING - STEP 1: Does the patient require the assistance of a person or device, or need extra time with toileting? Yes . TOILETING - STEP 2: Does the patient require the assistance of a helper? Yes. TOILETING - STEP 3: How much assistance does the patient require from the helper? Hands-on assistance from the helper TOILETING - STEP 4: Of the 3 tasks: 1) Adjusting clothing prior to use, 2) Cleansing of perineal area, 3) Adjusting clot jonatan after use; How many tasks does the patient perform WITHOUT assistance of the helper? Three tasks with steadying assistance from the helper TOILETING - SCORE: 4-MIN BLADDER MANAGEMENT: BLADDER MANAGEMENT - STEP 1: Does the patient control the bladder completely and intentionally without equipment or devices or med ications, and is always continent? No. BLADDER MANAGEMENT - STEP 2: Does the patient require the assistance of a helper? Yes. BLADDER MANAGEMENT - STEP 3: How much assistance does the patient require from the helper? Only set-up of equipment - such as plac ing it within reach of the patient or emptying a device - to maintain either satisfactory voiding pat tern or managing an external device, such as an absorbent pad, ileal device, or catheter BLADDER MANAGEMENT - SCORE: 5-SUP BOWEL MANAGEMENT: Activity did not occur on this shift BOWEL MANAGEMENT - SCORE: 7-IND TRANSFERS: BED, CHAIR, WHEELCHAIR: TRANSFERS: BED, CHAIR, WHEELCHAIR - STEP 1: Does the patient require assistance of a person or device, or need extra time with bed, chair, or whe elchair transfers? Yes. TRANSFERS: BED, CHAIR, WHEELCHAIR - STEP 2: Does the patient require the assistance of a helper? Yes. TRANSFERS: BED, CHAIR, WHEELCHAIR - STEP 3: How much assistance does the patient require from the helper? Lifting of the legs TRANSFERS: BED, CHAIR, WHEELCHAIR - STEP 4: How many legs does the patient require the helper to lift? both legs TRANSFERS: BED, CHAIR, WHEELCHAIR - SCORE: 3-MOD TRANSFERS: TOILET: TRANSFERS: TOILET - STEP 1: Does the patient require the assistance of a person or device, or need extra time with toilet transfe rs? Yes. TRANSFERS: TOILET - STEP 2: Does the patient require the assistance of a helper? Yes. TRANSFERS: TOILET - STEP 3: How much assistance does the patient require from the helper? Patient performs half or more of the tr ansferring tasks TRANSFERS: TOILET - STEP 4: Does the patient need only incidental help such as contact guard or steadying during toilet transfer? Yes. TRANSFERS: TOILET - SCORE: 4-MIN TRANSFERS: SHOWER: Activity did not occur on this shift TRANSFERS: SHOWER - SCORE: 0-UNK TRANSFERS: TUB: Activity did not occur on this shift TRANSFERS: TUB - SCORE: 0-UNK LOCOMOTION: WALK: Activity did not occur on this shift LOCOMOTION: WALK - SCORE: 0-UNK LOCOMOTION: WHEELCHAIR: Activity did not occur on this shift LOCOMOTION: WHEELCHAIR - SCORE: 0-UNK COMPREHENSION: COMPREHENSION: TYPE: Both COMPREHENSION - STEP 1: Does the patient require help from a person or device, or need extra time to understand complex and a bstract ideas (such as current events, finances, discharge planning, medical issues, relationships, e tc)? No. COMPREHENSION - STEP 2: Does the patient need extra time, require an assistive device (such as glasses for visual comprehensi on or a hearing aid for auditory comprehension) or does s/he have mild difficulty understanding compl ex and abstract information? Yes. COMPREHENSION - SCORE: 6-ABIGAIL EXPRESSION EXPRESSION: TYPE: Both EXPRESSION - STEP 1: Does the patient require help from a person or device, or need extra time expressing complex and abst ract ideas (such as current events, finances, discharge planning, medical issues, relationships, etc) ? No. EXPRESSION - STEP 2: Does the patient need extra time, require an assistive device (such as augmentive communication syste m or a communication board), OR does s/he have mild difficulty expressing complex and abstract ideas (including mild dysarthria or mild word-find problems)? Yes. EXPRESSION - SCORE: 6-ABIGAIL SOCIAL INTERACTION: SOCIAL INTERACTION - STEP 1: Does the patient require a helper to interact with others in social and therapeutic situations? No. SOCIAL INTERACTION - STEP 2: Does the patient need extra time in social situations, OR does s/he interact with staff, other patien ts, and family members ONLY in structured environments, OR does s/he require medication for social in teraction? Yes, patient needs extra time SOCIAL INTERACTION - SCORE: 6-ABIGAIL PROBLEM SOLVING: PROBLEM SOLVING - STEP 1: Does the patient need help from a person or device, or need extra time to solve complex problems such as managing a checking account or confronting interpersonal problems? No. PROBLEM SOLVING - STEP 2: Does the patient require extra time to make decisions or solve problems, OR does s/he have slight dif ficulty reading, initiating, or self-correcting in unfamiliar situations? Yes, patient needs extra ti me. PROBLEM SOLVING - SCORE: 6-ABIGAIL MEMORY: MEMORY - STEP 1: Does the patient need help from a person or device, or need extra time to remember frequently encount ered people, daily routines, and executing requests? No. MEMORY - STEP 2: Does the patient have slight difficulty recognizing frequently encountered people, daily routines, or executing requests without the need for repetition or using self-initiated or environmental cues to remember? Yes. MEMORY - SCORE: 6-ABIGAIL
[2019-01-24] MEDS: ENOXAPARIN 40 MG/0.4 ML SQ SCH (06:37)
[2019-01-24] MEDS: INSULIN -REGULAR HUMAN 50 UNIT/0.5 ML ML SQ SCH ×4 (07:30→21:41)
[2019-01-24] MEDS: DOCUSATE NA 100 MG CAP PO SCH ×2 (08:00→20:00)
[2019-01-24] MEDS: FERROUS SULFATE 325 MG TAB PO SCH (08:43)
[2019-01-24] MEDS: NEBIVOLOL HCL 20 MG TABLET PO SCH (08:43)
[2019-01-24] MEDS: GLIMEPIRIDE 2 MG TABLET PO SCH (08:43)
[2019-01-24] MEDS: FE SULF/FA/VIT B COMP & C TAB PO SCH (08:43)
[2019-01-24] MEDS: METFORMIN ER 500 MG TAB PO SCH (08:44)
[2019-01-24] MEDS: LOSARTAN POTASSIUM 50 MG TABLET PO SCH (08:44)
[2019-01-24] MEDS: GABAPENTIN 100 MG CAP PO SCH ×2 (08:44→20:33)
[2019-01-24] MEDS: NICOTINE 21 MG/PAT TD SCH (08:44)
[2019-01-24] MEDS: PROMOD 30 ML DOSE PO SCH ×2 (08:45→20:34)
--- NOTE | 2019-01-24 14:51 | FAST ---
ENCOUNTER DATE AND TIME: 01/24/2019 08:00 (CDT) NAME VENESSA NUNO DATE OF : 1940 DATE OF ADMISSION: 01/19/2019 16:37 ([employer] SAWYER) PHONE: AGE: 78 SSN# [id number] GENDER: Female ENCOUNTER PHYSICIAN: Dr. Lamont Mendez M.D. ADMISSION DIAGNOSIS: - Orthopaedic Disorders 08 - Unilateral Hip Fracture (08.11) LEFT HIP INTERTROCHANTERIC FRACTURE. EATING: Activity did not occur on this shift EATING - SCORE: 0-UNK GROOMING: Activity did not occur on this shift GROOMING - SCORE: 0-UNK BATHING: Activity did not occur on this shift BATHING - SCORE: 0-UNK DRESSING - UPPER BODY: Activity did not occur on this shift Patient is not dressing in public clothing ARTICLES SCORE Total number of steps: 0 DRESSING - UPPER BODY - SCORE: 0-UNK DRESSING - LOWER BODY: Activity did not occur on this shift Patient is not dressing in public clothing ARTICLES SCORE Total number of steps: 0 DRESSING - LOWER BODY - SCORE: 0-UNK TOILETING: Activity did not occur on this shift TOILETING - SCORE: 0-UNK BLADDER MANAGEMENT: Activity did not occur on this shift BLADDER MANAGEMENT - SCORE: 7-IND BOWEL MANAGEMENT: Activity did not occur on this shift BOWEL MANAGEMENT - SCORE: 7-IND TRANSFERS: BED, CHAIR, WHEELCHAIR: TRANSFERS: BED, CHAIR, WHEELCHAIR - STEP 1: Does the patient require assistance of a person or device, or need extra time with bed, chair, or whe elchair transfers? Yes. TRANSFERS: BED, CHAIR, WHEELCHAIR - STEP 2: Does the patient require the assistance of a helper? Yes. TRANSFERS: BED, CHAIR, WHEELCHAIR - STEP 3: How much assistance does the patient require from the helper? Only supervision TRANSFERS: BED, CHAIR, WHEELCHAIR - SCORE: 5-SUP TRANSFERS: TOILET: Activity did not occur on this shift TRANSFERS: TOILET - SCORE: 0-UNK TRANSFERS: SHOWER: Activity did not occur on this shift TRANSFERS: SHOWER - SCORE: 0-UNK TRANSFERS: TUB: Activity did not occur on this shift TRANSFERS: TUB - SCORE: 0-UNK LOCOMOTION: WALK: LOCOMOTION: WALK - STEP 1: Does the patient need help from a person or device, or need extra time to walk 150 feet? Yes. LOCOMOTION: WALK - STEP 2: How much assistance does the patient require to walk a minimum of 150 feet? Patient walks less than 1 50 feet - but more than 50 feet - with the assistance of only one helper LOCOMOTION: WALK - SCORE: 2-MAX LOCOMOTION: WHEELCHAIR: LOCOMOTION: WHEELCHAIR - STEP 1: Does the patient need help to go 150 feet in a wheelchair? Yes. LOCOMOTION: WHEELCHAIR - STEP 2: How much assistance does the patient need from the helper? Only supervision, cuing, or coaxing LOCOMOTION: WHEELCHAIR - SCORE: 5-SUP LOCOMOTION: STAIRS: Activity did not occur on this shift LOCOMOTION: STAIRS - SCORE: 0-UNK COMPREHENSION: COMPREHENSION - SCORE: 0-UNK EXPRESSION EXPRESSION - SCORE: 0-UNK SOCIAL INTERACTION: SOCIAL INTERACTION - SCORE: 0-UNK PROBLEM SOLVING: PROBLEM SOLVING - SCORE: 0-UNK MEMORY: MEMORY - SCORE: 0-UNK SIGNATURE PANEL: The following modified sections: Transfers: Bed, Chair, Wheelchair - Score, Transfers: Toilet - Score , Locomotion: Walk - Score, Locomotion: Wheelchair - Score, Locomotion: Stairs - Score were [electron melinda] signed by David Garza PTA on WedJan 24 2019 14:50:10 GMT-0500 (Central Daylight Time)
--- NOTE | 2019-01-24 14:55 | FAST ---
ENCOUNTER DATE AND TIME: 01/23/2019 08:00 (CDT) NAME VENESSA NUNO DATE OF : 1940 DATE OF ADMISSION: 01/19/2019 16:37 (TRIPOLER) PHONE: AGE: 78 SSN# [id number] GENDER: Female ENCOUNTER PHYSICIAN: Dr. Lamont Mendez M.D. ADMISSION DIAGNOSIS: - Orthopaedic Disorders 08 - Unilateral Hip Fracture (08.11) LEFT HIP INTERTROCHANTERIC FRACTURE. EATING: Activity did not occur on this shift EATING - SCORE: 0-UNK GROOMING: Activity did not occur on this shift GROOMING - SCORE: 0-UNK BATHING: Activity did not occur on this shift BATHING - SCORE: 0-UNK DRESSING - UPPER BODY: Activity did not occur on this shift Patient is not dressing in public clothing ARTICLES SCORE Total number of steps: 0 DRESSING - UPPER BODY - SCORE: 0-UNK DRESSING - LOWER BODY: Activity did not occur on this shift Patient is not dressing in public clothing ARTICLES SCORE Total number of steps: 0 DRESSING - LOWER BODY - SCORE: 0-UNK TOILETING: Activity did not occur on this shift TOILETING - SCORE: 0-UNK BLADDER MANAGEMENT: Activity did not occur on this shift BLADDER MANAGEMENT - SCORE: 7-IND BOWEL MANAGEMENT: Activity did not occur on this shift BOWEL MANAGEMENT - SCORE: 7-IND TRANSFERS: BED, CHAIR, WHEELCHAIR: TRANSFERS: BED, CHAIR, WHEELCHAIR - STEP 1: Does the patient require assistance of a person or device, or need extra time with bed, chair, or whe elchair transfers? Yes. TRANSFERS: BED, CHAIR, WHEELCHAIR - STEP 2: Does the patient require the assistance of a helper? Yes. TRANSFERS: BED, CHAIR, WHEELCHAIR - STEP 3: How much assistance does the patient require from the helper? Only supervision TRANSFERS: BED, CHAIR, WHEELCHAIR - SCORE: 5-SUP TRANSFERS: TOILET: Activity did not occur on this shift TRANSFERS: TOILET - SCORE: 0-UNK TRANSFERS: SHOWER: Activity did not occur on this shift TRANSFERS: SHOWER - SCORE: 0-UNK TRANSFERS: TUB: Activity did not occur on this shift TRANSFERS: TUB - SCORE: 0-UNK LOCOMOTION: WALK: LOCOMOTION: WALK - STEP 1: Does the patient need help from a person or device, or need extra time to walk 150 feet? Yes. LOCOMOTION: WALK - STEP 2: How much assistance does the patient require to walk a minimum of 150 feet? Patient walks less than 1 50 feet - but more than 50 feet - with the assistance of only one helper LOCOMOTION: WALK - SCORE: 2-MAX LOCOMOTION: WHEELCHAIR: LOCOMOTION: WHEELCHAIR - STEP 1: Does the patient need help to go 150 feet in a wheelchair? Yes. LOCOMOTION: WHEELCHAIR - STEP 2: How much assistance does the patient need from the helper? Only supervision, cuing, or coaxing LOCOMOTION: WHEELCHAIR - SCORE: 5-SUP LOCOMOTION: STAIRS: Activity did not occur on this shift LOCOMOTION: STAIRS - SCORE: 0-UNK COMPREHENSION: COMPREHENSION - SCORE: 0-UNK EXPRESSION EXPRESSION - SCORE: 0-UNK SOCIAL INTERACTION: SOCIAL INTERACTION - SCORE: 0-UNK PROBLEM SOLVING: PROBLEM SOLVING - SCORE: 0-UNK MEMORY: MEMORY - SCORE: 0-UNK SIGNATURE PANEL: The following modified sections: Transfers: Bed, Chair, Wheelchair - Score, Transfers: Toilet - Score , Locomotion: Walk - Score, Locomotion: Wheelchair - Score, Locomotion: Stairs - Score were [electron melinda] signed by David Garza PTA on WedJan 24 2019 14:54:35 GMT-0500 (Central Daylight Time)
--- NOTE | 2019-01-24 15:12 | FAST ---
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 Lamont Mendez M.D. ADMISSION DIAGNOSIS: - Orthopaedic Disorders 08 - Unilateral Hip Fracture (08.11) LEFT HIP INTERTROCHANTERIC FRACTURE. EATING: Activity did not occur on this shift EATING - SCORE: 0-UNK GROOMING: Wash, rinse, and dry hands GROOMING - STEP 1: Does the patient require the assistance of a person or device, or need extra time when grooming? No. GROOMING - SCORE: 7-IND BATHING: Activity did not occur on this shift BATHING - SCORE: 0-UNK DRESSING - UPPER BODY: Activity did not occur on this shift ARTICLES SCORE Total number of steps: 0 DRESSING - UPPER BODY - SCORE: 0-UNK DRESSING - LOWER BODY: Activity did not occur on this shift ARTICLES SCORE Total number of steps: 0 DRESSING - LOWER BODY - SCORE: 0-UNK TOILETING: TOILETING - STEP 1: Does the patient require the assistance of a person or device, or need extra time with toileting? Yes . TOILETING - STEP 2: Does the patient require the assistance of a helper? Yes. TOILETING - STEP 3: How much assistance does the patient require from the helper? Hands-on assistance from the helper TOILETING - STEP 4: Of the 3 tasks: 1) Adjusting clothing prior to use, 2) Cleansing of perineal area, 3) Adjusting clot jonatan after use; How many tasks does the patient perform WITHOUT assistance of the helper? Three tasks with steadying assistance from the helper TOILETING - SCORE: 4-MIN BLADDER MANAGEMENT: Activity did not occur on this shift BLADDER MANAGEMENT - SCORE: 7-IND BOWEL MANAGEMENT: Activity did not occur on this shift BOWEL MANAGEMENT - SCORE: 7-IND TRANSFERS: BED, CHAIR, WHEELCHAIR: Activity did not occur on this shift TRANSFERS: BED, CHAIR, WHEELCHAIR - SCORE: 0-UNK TRANSFERS: TOILET: TRANSFERS: TOILET - STEP 1: Does the patient require the assistance of a person or device, or need extra time with toilet transfe rs? Yes. TRANSFERS: TOILET - STEP 2: Does the patient require the assistance of a helper? Yes. TRANSFERS: TOILET - STEP 3: How much assistance does the patient require from the helper? Patient performs half or more of the tr ansferring tasks TRANSFERS: TOILET - STEP 4: Does the patient need only incidental help such as contact guard or steadying during toilet transfer? Yes. TRANSFERS: TOILET - SCORE: 4-MIN TRANSFERS: SHOWER: Activity did not occur on this shift TRANSFERS: SHOWER - SCORE: 0-UNK TRANSFERS: TUB: Activity did not occur on this shift TRANSFERS: TUB - SCORE: 0-UNK LOCOMOTION: WALK: Activity did not occur on this shift LOCOMOTION: WALK - SCORE: 0-UNK LOCOMOTION: WHEELCHAIR: Activity did not occur on this shift LOCOMOTION: WHEELCHAIR - SCORE: 0-UNK LOCOMOTION: STAIRS: Activity did not occur on this shift LOCOMOTION: STAIRS - SCORE: 0-UNK COMPREHENSION: COMPREHENSION - SCORE: 0-UNK EXPRESSION EXPRESSION - SCORE: 0-UNK SOCIAL INTERACTION: SOCIAL INTERACTION - SCORE: 0-UNK PROBLEM SOLVING: PROBLEM SOLVING - SCORE: 0-UNK MEMORY: MEMORY - SCORE: 0-UNK SIGNATURE PANEL: The following modified sections: Eating - Score, Grooming - Score, Bathing - Score, Dressing - Upper Body - Score, Dressing - Lower Body - Score, Toileting - Score, Transfers: Bed, Chair, Wheelchair - S core, Transfers: Toilet - Score, Transfers: Shower - Score, Transfers: Tub - Score, Comprehension - S core, Expression - Score, Social Interaction - Score, Problem Solving - Score, Memory - Score were [e lectronically] signed by OMAYRA Og on WedJan 24 2019 15:12:01 T-0500 ([facility] Time)
[2019-01-24] MEDS: ATORVASTATIN 10 MG TAB PO SCH (20:33)
[2019-01-24] MEDS: TRAMADOL HCL 50 MG TAB PO PRN (20:33)
[2019-01-24] MEDS: AMLODIPINE 5 MG TAB PO SCH (20:33)
--- NOTE | 2019-01-25 01:36 | FAST ---
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 Lamont Mendez M.D. ADMISSION DIAGNOSIS: - Orthopaedic Disorders 08 - Unilateral Hip Fracture (08.11) LEFT HIP INTERTROCHANTERIC FRACTURE. EATING: Activity did not occur on this shift EATING - SCORE: 0-UNK GROOMING: Activity did not occur on this shift GROOMING - SCORE: 0-UNK BATHING: Activity did not occur on this shift BATHING - SCORE: 0-UNK DRESSING - UPPER BODY: Patient is not dressing in public clothing ARTICLES SCORE Total number of steps: 0 DRESSING - UPPER BODY - SCORE: 0-UNK DRESSING - LOWER BODY: Patient is not dressing in public clothing ARTICLES SCORE Total number of steps: 0 DRESSING - LOWER BODY - SCORE: 0-UNK TOILETING: TOILETING - STEP 1: Does the patient require the assistance of a person or device, or need extra time with toileting? Yes . TOILETING - STEP 2: Does the patient require the assistance of a helper? Yes. TOILETING - STEP 3: How much assistance does the patient require from the helper? Hands-on assistance from the helper TOILETING - STEP 4: Of the 3 tasks: 1) Adjusting clothing prior to use, 2) Cleansing of perineal area, 3) Adjusting clot jonatan after use; How many tasks does the patient perform WITHOUT assistance of the helper? Three tasks with steadying assistance from the helper TOILETING - SCORE: 4-MIN BLADDER MANAGEMENT: BLADDER MANAGEMENT - STEP 1: Does the patient control the bladder completely and intentionally without equipment or devices or med ications, and is always continent? Yes. BLADDER MANAGEMENT - SCORE: 7-IND BOWEL MANAGEMENT: Activity did not occur on this shift BOWEL MANAGEMENT - SCORE: 7-IND TRANSFERS: BED, CHAIR, WHEELCHAIR: TRANSFERS: BED, CHAIR, WHEELCHAIR - STEP 1: Does the patient require assistance of a person or device, or need extra time with bed, chair, or whe elchair transfers? Yes. TRANSFERS: BED, CHAIR, WHEELCHAIR - STEP 2: Does the patient require the assistance of a helper? Yes. TRANSFERS: BED, CHAIR, WHEELCHAIR - STEP 3: How much assistance does the patient require from the helper? Lifting of the legs TRANSFERS: BED, CHAIR, WHEELCHAIR - STEP 4: How many legs does the patient require the helper to lift? both legs TRANSFERS: BED, CHAIR, WHEELCHAIR - SCORE: 3-MOD TRANSFERS: TOILET: TRANSFERS: TOILET - STEP 1: Does the patient require the assistance of a person or device, or need extra time with toilet transfe rs? Yes. TRANSFERS: TOILET - STEP 2: Does the patient require the assistance of a helper? Yes. TRANSFERS: TOILET - STEP 3: How much assistance does the patient require from the helper? Patient performs half or more of the tr ansferring tasks TRANSFERS: TOILET - STEP 4: Does the patient need only incidental help such as contact guard or steadying during toilet transfer? Yes. TRANSFERS: TOILET - SCORE: 4-MIN TRANSFERS: SHOWER: Activity did not occur on this shift TRANSFERS: SHOWER - SCORE: 0-UNK TRANSFERS: TUB: Activity did not occur on this shift TRANSFERS: TUB - SCORE: 0-UNK LOCOMOTION: WALK: Activity did not occur on this shift LOCOMOTION: WALK - SCORE: 0-UNK LOCOMOTION: WHEELCHAIR: Activity did not occur on this shift LOCOMOTION: WHEELCHAIR - SCORE: 0-UNK COMPREHENSION: COMPREHENSION: TYPE: Both COMPREHENSION - STEP 1: Does the patient require help from a person or device, or need extra time to understand complex and a bstract ideas (such as current events, finances, discharge planning, medical issues, relationships, e tc)? No. COMPREHENSION - STEP 2: Does the patient need extra time, require an assistive device (such as glasses for visual comprehensi on or a hearing aid for auditory comprehension) or does s/he have mild difficulty understanding compl ex and abstract information? Yes. COMPREHENSION - SCORE: 6-ABIGAIL EXPRESSION EXPRESSION: TYPE: Both EXPRESSION - STEP 1: Does the patient require help from a person or device, or need extra time expressing complex and abst ract ideas (such as current events, finances, discharge planning, medical issues, relationships, etc) ? No. EXPRESSION - STEP 2: Does the patient need extra time, require an assistive device (such as augmentive communication syste m or a communication board), OR does s/he have mild difficulty expressing complex and abstract ideas (including mild dysarthria or mild word-find problems)? No. EXPRESSION - SCORE: 7-IND SOCIAL INTERACTION: SOCIAL INTERACTION - STEP 1: Does the patient require a helper to interact with others in social and therapeutic situations? No. SOCIAL INTERACTION - STEP 2: Does the patient need extra time in social situations, OR does s/he interact with staff, other patien ts, and family members ONLY in structured environments, OR does s/he require medication for social in teraction? No. SOCIAL INTERACTION - SCORE: 7-IND PROBLEM SOLVING: PROBLEM SOLVING - STEP 1: Does the patient need help from a person or device, or need extra time to solve complex problems such as managing a checking account or confronting interpersonal problems? No. PROBLEM SOLVING - STEP 2: Does the patient require extra time to make decisions or solve problems, OR does s/he have slight dif ficulty reading, initiating, or self-correcting in unfamiliar situations? No. PROBLEM SOLVING - SCORE: 7-IND MEMORY: MEMORY - STEP 1: Does the patient need help from a person or device, or need extra time to remember frequently encount ered people, daily routines, and executing requests? No. MEMORY - STEP 2: Does the patient have slight difficulty recognizing frequently encountered people, daily routines, or executing requests without the need for repetition or using self-initiated or environmental cues to remember? No. MEMORY - SCORE: 7-IND SIGNATURE PANEL: The following modified sections: Eating - Score, Bathing - Score, Dressing - Upper Body - Score, Dres sing - Lower Body - Score, Toileting - Score, Bladder Management - Score, Bowel Management - Score, T ransfers: Bed, Chair, Wheelchair - Score, Transfers: Toilet - Score, Transfers: Shower - Score, Trans fers: Tub - Score, Locomotion: Walk - Score, Locomotion: Wheelchair - Score, Comprehension - Score, E xpression - Score, Social Interaction - Score, Problem Solving - Score, Memory - Score, Grooming - Sc ore were [electronically] signed by Eva Zhang CNA on WedJan 25 2019 01:35:49 T-0500 ([facility] ylight Time)
[2019-01-25] MEDS: ENOXAPARIN 40 MG/0.4 ML SQ SCH (07:15)
[2019-01-25] MEDS: INSULIN -REGULAR HUMAN 50 UNIT/0.5 ML ML SQ SCH ×4 (07:22→21:47)
[2019-01-25] MEDS: NICOTINE 21 MG/PAT TD SCH (08:27)
[2019-01-25] MEDS: LOSARTAN POTASSIUM 50 MG TABLET PO SCH (08:28)
[2019-01-25] MEDS: GABAPENTIN 100 MG CAP PO SCH ×2 (08:28→20:15)
[2019-01-25] MEDS: FORMULATION-R RECTAL 30GM PR PRN (08:28)
[2019-01-25] MEDS: FERROUS SULFATE 325 MG TAB PO SCH (08:29)
[2019-01-25] MEDS: GLIMEPIRIDE 2 MG TABLET PO SCH (08:29)
[2019-01-25] MEDS: NEBIVOLOL HCL 20 MG TABLET PO SCH (08:29)
[2019-01-25] MEDS: DOCUSATE NA 100 MG CAP PO SCH ×2 (08:30→20:00)
[2019-01-25] MEDS: FE SULF/FA/VIT B COMP & C TAB PO SCH (08:30)
[2019-01-25] MEDS: METFORMIN ER 500 MG TAB PO SCH (08:30)
[2019-01-25] MEDS: PROMOD 30 ML DOSE PO SCH ×2 (08:31→20:16)
--- NOTE | 2019-01-25 14:39 | FAST ---
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 Lamont Mendez M.D. ADMISSION DIAGNOSIS: - Orthopaedic Disorders 08 - Unilateral Hip Fracture (08.11) LEFT HIP INTERTROCHANTERIC FRACTURE. EATING: EATING - STEP 1: Does the patient require the assistance of a person or device, or need extra time when eating? Yes. EATING - STEP 2: Does the patient require the assistance of a helper? Yes. EATING - STEP 3: Does the patient perform half or more of the eating tasks? Yes. EATING - STEP 4: Does the patient need only supervision, cuing, coaxing OR help to apply an orthosis OR help to cut fo od, open containers, pour liquids, or butter bread? Yes. EATING - SCORE: 5-SUP GROOMING: Comb/brush hair Oral care GROOMING - STEP 1: Does the patient require the assistance of a person or device, or need extra time when grooming? Yes. GROOMING - STEP 2: Does the patient require the assistance of a helper? No. The patient only requires an assistive devic e, OR takes more than reasonable time to groom, OR there is a concern for safety as the patient groom s GROOMING - SCORE: 6-ABIGAIL BATHING: Activity did not occur on this shift BATHING - SCORE: 0-UNK DRESSING - UPPER BODY: Activity did not occur on this shift ARTICLES SCORE Total number of steps: 0 DRESSING - UPPER BODY - SCORE: 0-UNK DRESSING - LOWER BODY: Activity did not occur on this shift ARTICLES SCORE Total number of steps: 0 DRESSING - LOWER BODY - SCORE: 0-UNK TOILETING: TOILETING - STEP 1: Does the patient require the assistance of a person or device, or need extra time with toileting? Yes . TOILETING - STEP 2: Does the patient require the assistance of a helper? Yes. TOILETING - STEP 3: How much assistance does the patient require from the helper? Hands-on assistance from the helper TOILETING - STEP 4: Of the 3 tasks: 1) Adjusting clothing prior to use, 2) Cleansing of perineal area, 3) Adjusting clot jonatan after use; How many tasks does the patient perform WITHOUT assistance of the helper? Two tasks TOILETING - SCORE: 3-MOD BLADDER MANAGEMENT: BLADDER MANAGEMENT - STEP 1: Does the patient control the bladder completely and intentionally without equipment or devices or med ications, and is always continent? No. BLADDER MANAGEMENT - STEP 2: Does the patient require the assistance of a helper? No, patient requires and independently uses an a ssistive device, such as a urinal, bedpan, bedside commode, catheter, absorbent pad, or collecting de vice BLADDER MANAGEMENT - SCORE: 6-ABIGAIL BOWEL MANAGEMENT: Activity did not occur on this shift BOWEL MANAGEMENT - SCORE: 7-IND TRANSFERS: BED, CHAIR, WHEELCHAIR: TRANSFERS: BED, CHAIR, WHEELCHAIR - STEP 1: Does the patient require assistance of a person or device, or need extra time with bed, chair, or whe elchair transfers? Yes. TRANSFERS: BED, CHAIR, WHEELCHAIR - STEP 2: Does the patient require the assistance of a helper? Yes. TRANSFERS: BED, CHAIR, WHEELCHAIR - STEP 3: How much assistance does the patient require from the helper? Steadying/guiding assistance TRANSFERS: BED, CHAIR, WHEELCHAIR - SCORE: 4-MIN TRANSFERS: TOILET: TRANSFERS: TOILET - STEP 1: Does the patient require the assistance of a person or device, or need extra time with toilet transfe rs? Yes. TRANSFERS: TOILET - STEP 2: Does the patient require the assistance of a helper? Yes. TRANSFERS: TOILET - STEP 3: How much assistance does the patient require from the helper? Patient performs half or more of the tr ansferring tasks TRANSFERS: TOILET - STEP 4: Does the patient need only incidental help such as contact guard or steadying during toilet transfer? Yes. TRANSFERS: TOILET - SCORE: 4-MIN TRANSFERS: SHOWER: Activity did not occur on this shift TRANSFERS: SHOWER - SCORE: 0-UNK TRANSFERS: TUB: Activity did not occur on this shift TRANSFERS: TUB - SCORE: 0-UNK LOCOMOTION: WALK: Activity did not occur on this shift LOCOMOTION: WALK - SCORE: 0-UNK LOCOMOTION: WHEELCHAIR: Activity did not occur on this shift LOCOMOTION: WHEELCHAIR - SCORE: 0-UNK COMPREHENSION: COMPREHENSION: TYPE: Both COMPREHENSION - STEP 1: Does the patient require help from a person or device, or need extra time to understand complex and a bstract ideas (such as current events, finances, discharge planning, medical issues, relationships, e tc)? No. COMPREHENSION - STEP 2: Does the patient need extra time, require an assistive device (such as glasses for visual comprehensi on or a hearing aid for auditory comprehension) or does s/he have mild difficulty understanding compl ex and abstract information? Yes. COMPREHENSION - SCORE: 6-ABIGAIL EXPRESSION EXPRESSION: TYPE: Both EXPRESSION - STEP 1: Does the patient require help from a person or device, or need extra time expressing complex and abst ract ideas (such as current events, finances, discharge planning, medical issues, relationships, etc) ? No. EXPRESSION - STEP 2: Does the patient need extra time, require an assistive device (such as augmentive communication syste m or a communication board), OR does s/he have mild difficulty expressing complex and abstract ideas (including mild dysarthria or mild word-find problems)? Yes. EXPRESSION - SCORE: 6-ABIGAIL SOCIAL INTERACTION: SOCIAL INTERACTION - STEP 1: Does the patient require a helper to interact with others in social and therapeutic situations? No. SOCIAL INTERACTION - STEP 2: Does the patient need extra time in social situations, OR does s/he interact with staff, other patien ts, and family members ONLY in structured environments, OR does s/he require medication for social in teraction? Yes, patient needs extra time SOCIAL INTERACTION - SCORE: 6-ABIGAIL PROBLEM SOLVING: PROBLEM SOLVING - STEP 1: Does the patient need help from a person or device, or need extra time to solve complex problems such as managing a checking account or confronting interpersonal problems? No. PROBLEM SOLVING - STEP 2: Does the patient require extra time to make decisions or solve problems, OR does s/he have slight dif ficulty reading, initiating, or self-correcting in unfamiliar situations? Yes, patient needs extra ti me. PROBLEM SOLVING - SCORE: 6-ABIGAIL MEMORY: MEMORY - STEP 1: Does the patient need help from a person or device, or need extra time to remember frequently encount ered people, daily routines, and executing requests? No. MEMORY - STEP 2: Does the patient have slight difficulty recognizing frequently encountered people, daily routines, or executing requests without the need for repetition or using self-initiated or environmental cues to remember? Yes. MEMORY - SCORE: 6-ABIGAIL SIGNATURE PANEL: The following modified sections: Eating - Score, Grooming - Score, Bathing - Score, Dressing - Upper Body - Score, Dressing - Lower Body - Score, Toileting - Score, Bladder Management - Score, Bowel Man agement - Score, Transfers: Bed, Chair, Wheelchair - Score, Transfers: Toilet - Score, Transfers: Vicki wer - Score, Transfers: Tub - Score, Locomotion: Walk - Score, Locomotion: Wheelchair - Score, Compre hension - Score, Expression - Score, Social Interaction - Score, Problem Solving - Score, Memory - Sc ore were [electronically] signed by Roque Raphael on WedJan 25 2019 14:38:30 GMT-0500 (Central Daylight Time)
--- NOTE | 2019-01-25 18:14 | R.PN ---
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 Pt denied any depression. Glucose 143 to 281. Ambulated 150' with standby assistance using a rolling walker. Up and down 15 steps with standby assi stance. Self-propelled wheelchair 250' with standby assistance. VITAL SIGNS Temperature: 97.8 F SBP/DBP: 149/65 Pulse: 71 Resp: 16 MEDICATION ALLERGIES: No Known Drug Allergies (NKDA) ENVIRONMENTAL ALLERGIES: None Known - Substance Allergies None Known - Other Allergies None Known NURSING: - Shower allowing shower - Lab Results blood Sugar Check ACHS - Skin care per protocol PRECAUTIONS: - Posterior Hip Precaution No adduction across midline No external rotation No hip flexion >90 degrees No internal rotation No wheel chair propulsion - Weight Bearing Precaution TTWB left LE ACTIVITIES OOB only with supervision THERAPIES: - Occupational Therapy Evaluate and Treat. - Physical Therapy Evaluate and Treat. PHYSICAL EXAM - Gen Alert and awake Lying in bed No apparent distress Oriented to: person, time, and place - Skin No breakdown No abnormalities - Eyes No abnormalities - ENMT No abnormalities - Neck No abnormalities - CVS RRR - Chest Clear - Abd +bowel sounds - GI Soft Deferred - No abnormalities - Ext Trace edema in left leg and foot. - MSK 4+/5 weakness in left lower extremity. - Neuro 4/5 strength left lower extremity. - Psych No abnormalities ASSESSMENT: Pt. is a 78 yo Right-handed white female.Her impairment category is Orthopaedic Disorders 08 - Unila teral Hip Fracture (06.25).Pre-morbidly, Pt. was independent/mod-I in Transfers Control, Communicatio n, Social Cognition, Self-Care, Locomotion, and Sphincter Control; and she had good Sphincter Control .Currently, she has deficits of Safety Awareness, Transfers Control, Balance, Locomotion, Endurance, and Self-Care.Pt. is now referred to [facility] for acute in-patient rehabilit ation in order to maximize patient's functional independence in activities of daily living, strength, ROM, and mobility.- Rehab Goal Patient has realistic goal of being discharged at assistance level 6-Raquel to reside at Home with Fam susy/Relatives. MDM/PLAN: - Physical Therapy Decreased range of motion - to improve, our physical therapists will perform initial evaluation of p t's status upon admission and devise an individualized program for increasing patient's Range of Lon on. Gait dysfunction - to improve, our physical therapists will perform initial evaluation of pt's statu s upon admission and devise an individualized program for Gait Training, and Wheel Chair mobility Inability to transfer - to improve, our physical therapists will perform initial evaluation of pt's status upon admission and devise an individualized program for Bed mobility Need for home safety evaluation - to improve, our physical therapists will perform initial evaluatio n of pt's status upon admission and devise an individualized program for Home Evaluation Need in caregiver upon discharge - to improve, our physical therapists will perform initial evaluati on of pt's status upon admission and devise an individualized program for Caregiver Training New precaution - to improve, our physical therapists will perform initial evaluation of pt's status upon admission and devise an individualized program for Patient precaution education Edema - to improve, our physical therapists will perform initial evaluation of pt's status upon admi ssion and devise an individualized program for Elevation Training, and Lymphedema Therapy Poor balance - to improve, our physical therapists will perform initial evaluation of pt's status up on admission and devise an individualized program for Balance Training Poor endurance - to improve, our physical therapists will perform initial evaluation of pt's status upon admission and devise an individualized program for Endurance Training Weakness - to improve, our physical therapists will perform initial evaluation of pt's status upon a dmission and devise an individualized program for Aquatic Therapy, Neuromuscular Reeducation, and Str engthening Achieving independence - to improve, our physical therapists will perform initial evaluation of pt's status upon admission and devise an individualized program for Community Reintegration Activities - Occupational Therapy ADL deficits - to improve, our occupation therapists will perform initial evaluation of pt's status upon admission and devise an individualized program for Bathing, Bed mobility, Community Reintegratio n, Cooking, Dressing, Eating, Fine Motor Skills, Grooming, Homemaking, Kitchen Mobility, Laundry, Pat ient Education, Safety Awareness, Splinting - Positioning, Transfers(Toilet, Tub, Shower), and Wheel Chair Management Need for home health aide caregiver - to improve, our occupation therapists will perform initial evaluation of pt's status upon admission and devise an individualized program for Caregiver Training Weakness - to improve, our occupation therapists will perform initial evaluation of pt's status upon admission and devise an individualized program for Aquatic Therapy, Balance, Endurance, UE ROM, and UE strengthening - Anterior Hip Precaution No abduction No active extension No adduction across midline No external rotation No hip flexion >90 degrees No internal rotation - Diet - Liquid Texture Continue Regular - Tube Feed Continue N/A - Diet Type Continue Regular - Posterior Hip Precaution No adduction across midline No external rotation No hip flexion >90 degrees No internal rotation No wheel chair propulsion - Lab Results blood Sugar Check ACHS - Weight Bearing Precaution TTWB left LE - Skin care per protocol - Diet - Solid Texture Continue Regular - Shower allowing shower FUNCTIONAL STATUS: UPDATED AT WEEKLY TEAM CONFERENCE - Bladder Same accident frequency: 7-Ind - No accidents in the past 7 days - Bowel Same accident frequency: 7-Ind - No accidents in the past 7 days - Walking Same score based on distance walked: 2(50-149ft) - Wheelchair Same score based on distance traveled: 0(N/A) FUNCTIONAL STATUS: - Self-Care A. Eating Raquel B. Grooming sup C. Bathing sup D. Dressing - Upper sup E. Dressing - Lower Dep F. Toileting maxA - Sphincter Control G: Bladder control Ind H: Bowel control Ind - Transfers Control I. Bed/Chair/Wheelchair CGA J. Toilet CGA K. Tub/Shower ADNO - Locomotion L. Walk/Wheelchair (C) Salazar L. Walk/Wheelchair (W) Salazar M. Stairs ADNO - Communication N. Comprehension (B) Ind O. Expression (B) Ind - Social Cognition P. Social Interaction Ind Q. Problem Solving Ind R. Memory Ind - Endurance Fair - Balance Fair - Safety Awareness Fair CURRENT FUNC. DEFICITS: Safety Awareness, Transfers Control, Balance, Locomotion, Endurance, and Self-Care SIGNATURE PANEL: (CDT)
[2019-01-25] MEDS: ATORVASTATIN 10 MG TAB PO SCH (20:15)
[2019-01-25] MEDS: AMLODIPINE 5 MG TAB PO SCH (20:16)
[2019-01-25] MEDS: TRAMADOL HCL 50 MG TAB PO PRN (20:21)
[2019-01-26] MEDS: ENOXAPARIN 40 MG/0.4 ML SQ SCH (06:46)
[2019-01-26] MEDS: FORMULATION-R RECTAL 30GM PR PRN (06:46)
[2019-01-26 07:13] LABS: Absolute Lymphocytes (CBC) 1.2 K/uL (0.7-4.9); Absolute Monocytes 0.9 K/uL (0.1-1.3); Absolute Neutrophil 5.8 K/uL (1.8-8.0); Basophils % 0.4 % (0-1.3); Eosinophils % 2.3 % (0-4.4); Hematocrit 26.3 % (36.0-45.0); Lymphocytes % 14.8 % (15.3-44.8); MPV 8.3 fL (7.6-11.3); Monocytes % 11.5 % (3.3-12.3); RBC Red Blood Cell Count 3.02 M/uL (3.86-4.86)
[2019-01-26 07:17] LABS: Albumin 2.7 g/dL (3.4-5.0); Potassium 4.6 mmol/L (3.5-5.1); Prealbumin 14.4 mg/dL (20-40)
[2019-01-26] MEDS: INSULIN -REGULAR HUMAN 50 UNIT/0.5 ML ML SQ SCH ×4 (07:30→20:19)
[2019-01-26] MEDS: DOCUSATE NA 100 MG CAP PO SCH ×2 (08:00→20:00)
[2019-01-26] MEDS: NICOTINE 21 MG/PAT TD SCH (08:46)
[2019-01-26] MEDS: LOSARTAN POTASSIUM 50 MG TABLET PO SCH (08:47)
[2019-01-26] MEDS: GLIMEPIRIDE 2 MG TABLET PO SCH (08:47)
[2019-01-26] MEDS: GABAPENTIN 100 MG CAP PO SCH ×2 (08:47→20:44)
[2019-01-26] MEDS: NEBIVOLOL HCL 20 MG TABLET PO SCH (08:47)
[2019-01-26] MEDS: PROMOD 30 ML DOSE PO SCH ×2 (08:48→20:43)
[2019-01-26] MEDS: FE SULF/FA/VIT B COMP & C TAB PO SCH (08:48)
[2019-01-26] MEDS: FERROUS SULFATE 325 MG TAB PO SCH (08:48)
[2019-01-26] MEDS: METFORMIN ER 500 MG TAB PO SCH (08:48)
--- NOTE | 2019-01-26 11:28 | FAST ---
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 Lamont Mendez M.D. ADMISSION DIAGNOSIS: - Orthopaedic Disorders 08 - Unilateral Hip Fracture (08.11) LEFT HIP INTERTROCHANTERIC FRACTURE. EATING: EATING - STEP 1: Does the patient require the assistance of a person or device, or need extra time when eating? Yes. EATING - STEP 2: Does the patient require the assistance of a helper? No, patient only requires an assistive device, O R s/he takes more than reasonable time to eat, OR there is a safety concern, OR s/he requires modifie d food consistency EATING - SCORE: 6-ABIGAIL GROOMING: Comb/brush hair Oral care GROOMING - STEP 1: Does the patient require the assistance of a person or device, or need extra time when grooming? Yes. GROOMING - STEP 2: Does the patient require the assistance of a helper? No. The patient only requires an assistive devic e, OR takes more than reasonable time to groom, OR there is a concern for safety as the patient groom s GROOMING - SCORE: 6-ABIGAIL BATHING: Activity did not occur on this shift BATHING - SCORE: 0-UNK DRESSING - UPPER BODY: Activity did not occur on this shift ARTICLES SCORE Total number of steps: 0 DRESSING - UPPER BODY - SCORE: 0-UNK DRESSING - LOWER BODY: Activity did not occur on this shift ARTICLES SCORE Total number of steps: 0 DRESSING - LOWER BODY - SCORE: 0-UNK TOILETING: TOILETING - STEP 1: Does the patient require the assistance of a person or device, or need extra time with toileting? Yes . TOILETING - STEP 2: Does the patient require the assistance of a helper? Yes. TOILETING - STEP 3: How much assistance does the patient require from the helper? Hands-on assistance from the helper TOILETING - STEP 4: Of the 3 tasks: 1) Adjusting clothing prior to use, 2) Cleansing of perineal area, 3) Adjusting clot jonatan after use; How many tasks does the patient perform WITHOUT assistance of the helper? Three tasks with steadying assistance from the helper TOILETING - SCORE: 4-MIN BLADDER MANAGEMENT: BLADDER MANAGEMENT - STEP 1: Does the patient control the bladder completely and intentionally without equipment or devices or med ications, and is always continent? Yes. BLADDER MANAGEMENT - SCORE: 7-IND BOWEL MANAGEMENT: Activity did not occur on this shift BOWEL MANAGEMENT - SCORE: 7-IND TRANSFERS: BED, CHAIR, WHEELCHAIR: TRANSFERS: BED, CHAIR, WHEELCHAIR - STEP 1: Does the patient require assistance of a person or device, or need extra time with bed, chair, or whe elchair transfers? Yes. TRANSFERS: BED, CHAIR, WHEELCHAIR - STEP 2: Does the patient require the assistance of a helper? Yes. TRANSFERS: BED, CHAIR, WHEELCHAIR - STEP 3: How much assistance does the patient require from the helper? Steadying/guiding assistance TRANSFERS: BED, CHAIR, WHEELCHAIR - SCORE: 4-MIN TRANSFERS: TOILET: TRANSFERS: TOILET - STEP 1: Does the patient require the assistance of a person or device, or need extra time with toilet transfe rs? Yes. TRANSFERS: TOILET - STEP 2: Does the patient require the assistance of a helper? Yes. TRANSFERS: TOILET - STEP 3: How much assistance does the patient require from the helper? Patient performs half or more of the tr ansferring tasks TRANSFERS: TOILET - STEP 4: Does the patient need only incidental help such as contact guard or steadying during toilet transfer? Yes. TRANSFERS: TOILET - SCORE: 4-MIN TRANSFERS: SHOWER: Activity did not occur on this shift TRANSFERS: SHOWER - SCORE: 0-UNK TRANSFERS: TUB: Activity did not occur on this shift TRANSFERS: TUB - SCORE: 0-UNK LOCOMOTION: WALK: Activity did not occur on this shift LOCOMOTION: WALK - SCORE: 0-UNK LOCOMOTION: WHEELCHAIR: Activity did not occur on this shift LOCOMOTION: WHEELCHAIR - SCORE: 0-UNK COMPREHENSION: COMPREHENSION: TYPE: Both COMPREHENSION - STEP 1: Does the patient require help from a person or device, or need extra time to understand complex and a bstract ideas (such as current events, finances, discharge planning, medical issues, relationships, e tc)? No. COMPREHENSION - STEP 2: Does the patient need extra time, require an assistive device (such as glasses for visual comprehensi on or a hearing aid for auditory comprehension) or does s/he have mild difficulty understanding compl ex and abstract information? No. COMPREHENSION - SCORE: 7-IND EXPRESSION EXPRESSION: TYPE: Both EXPRESSION - STEP 1: Does the patient require help from a person or device, or need extra time expressing complex and abst ract ideas (such as current events, finances, discharge planning, medical issues, relationships, etc) ? No. EXPRESSION - STEP 2: Does the patient need extra time, require an assistive device (such as augmentive communication syste m or a communication board), OR does s/he have mild difficulty expressing complex and abstract ideas (including mild dysarthria or mild word-find problems)? Yes. EXPRESSION - SCORE: 6-ABIGAIL SOCIAL INTERACTION: SOCIAL INTERACTION - STEP 1: Does the patient require a helper to interact with others in social and therapeutic situations? No. SOCIAL INTERACTION - STEP 2: Does the patient need extra time in social situations, OR does s/he interact with staff, other patien ts, and family members ONLY in structured environments, OR does s/he require medication for social in teraction? Yes, patient needs extra time SOCIAL INTERACTION - SCORE: 6-ABIGAIL PROBLEM SOLVING: PROBLEM SOLVING - STEP 1: Does the patient need help from a person or device, or need extra time to solve complex problems such as managing a checking account or confronting interpersonal problems? No. PROBLEM SOLVING - STEP 2: Does the patient require extra time to make decisions or solve problems, OR does s/he have slight dif ficulty reading, initiating, or self-correcting in unfamiliar situations? Yes, patient needs extra ti me. PROBLEM SOLVING - SCORE: 6-ABIGAIL MEMORY: MEMORY - STEP 1: Does the patient need help from a person or device, or need extra time to remember frequently encount ered people, daily routines, and executing requests? No. MEMORY - STEP 2: Does the patient have slight difficulty recognizing frequently encountered people, daily routines, or executing requests without the need for repetition or using self-initiated or environmental cues to remember? Yes. MEMORY - SCORE: 6-ABIGAIL SIGNATURE PANEL: The following modified sections: Eating - Score, Grooming - Score, Bathing - Score, Dressing - Upper Body - Score, Dressing - Lower Body - Score, Toileting - Score, Bladder Management - Score, Bowel Man agement - Score, Transfers: Bed, Chair, Wheelchair - Score, Transfers: Toilet - Score, Transfers: Vicki wer - Score, Transfers: Tub - Score, Locomotion: Walk - Score, Locomotion: Wheelchair - Score, Compre hension - Score, Expression - Score, Social Interaction - Score, Problem Solving - Score, Memory - Sc ore were [electronically] signed by Roque Raphael on WedJan 26 2019 11:27:22 GMT-0500 (Central Daylight Time)
[2019-01-26] MEDS: AMLODIPINE 5 MG TAB PO SCH (20:44)
[2019-01-26] MEDS: ATORVASTATIN 10 MG TAB PO SCH (20:44)
[2019-01-26] MEDS: TRAMADOL HCL 50 MG TAB PO PRN (20:46)
--- NOTE | 2019-01-27 02:08 | FAST ---
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 Lamont Mendez M.D. ADMISSION DIAGNOSIS: - Orthopaedic Disorders 08 - Unilateral Hip Fracture (08.11) LEFT HIP INTERTROCHANTERIC FRACTURE. EATING: Activity did not occur on this shift EATING - SCORE: 0-UNK GROOMING: Activity did not occur on this shift GROOMING - SCORE: 0-UNK BATHING: Activity did not occur on this shift BATHING - SCORE: 0-UNK DRESSING - UPPER BODY: Patient is not dressing in public clothing ARTICLES SCORE Total number of steps: 0 DRESSING - UPPER BODY - SCORE: 0-UNK DRESSING - LOWER BODY: Patient is not dressing in public clothing ARTICLES SCORE Total number of steps: 0 DRESSING - LOWER BODY - SCORE: 0-UNK TOILETING: TOILETING - STEP 1: Does the patient require the assistance of a person or device, or need extra time with toileting? Yes . TOILETING - STEP 2: Does the patient require the assistance of a helper? Yes. TOILETING - STEP 3: How much assistance does the patient require from the helper? Hands-on assistance from the helper TOILETING - STEP 4: Of the 3 tasks: 1) Adjusting clothing prior to use, 2) Cleansing of perineal area, 3) Adjusting clot jonatan after use; How many tasks does the patient perform WITHOUT assistance of the helper? Three tasks with steadying assistance from the helper TOILETING - SCORE: 4-MIN BLADDER MANAGEMENT: BLADDER MANAGEMENT - STEP 1: Does the patient control the bladder completely and intentionally without equipment or devices or med ications, and is always continent? Yes. BLADDER MANAGEMENT - SCORE: 7-IND BOWEL MANAGEMENT: Activity did not occur on this shift BOWEL MANAGEMENT - SCORE: 7-IND TRANSFERS: BED, CHAIR, WHEELCHAIR: TRANSFERS: BED, CHAIR, WHEELCHAIR - STEP 1: Does the patient require assistance of a person or device, or need extra time with bed, chair, or whe elchair transfers? Yes. TRANSFERS: BED, CHAIR, WHEELCHAIR - STEP 2: Does the patient require the assistance of a helper? Yes. TRANSFERS: BED, CHAIR, WHEELCHAIR - STEP 3: How much assistance does the patient require from the helper? Lifting of the legs TRANSFERS: BED, CHAIR, WHEELCHAIR - STEP 4: How many legs does the patient require the helper to lift? both legs TRANSFERS: BED, CHAIR, WHEELCHAIR - SCORE: 3-MOD TRANSFERS: TOILET: TRANSFERS: TOILET - STEP 1: Does the patient require the assistance of a person or device, or need extra time with toilet transfe rs? Yes. TRANSFERS: TOILET - STEP 2: Does the patient require the assistance of a helper? Yes. TRANSFERS: TOILET - STEP 3: How much assistance does the patient require from the helper? Patient performs half or more of the tr ansferring tasks TRANSFERS: TOILET - STEP 4: Does the patient need only incidental help such as contact guard or steadying during toilet transfer? Yes. TRANSFERS: TOILET - SCORE: 4-MIN TRANSFERS: SHOWER: Activity did not occur on this shift TRANSFERS: SHOWER - SCORE: 0-UNK TRANSFERS: TUB: Activity did not occur on this shift TRANSFERS: TUB - SCORE: 0-UNK LOCOMOTION: WALK: Activity did not occur on this shift LOCOMOTION: WALK - SCORE: 0-UNK LOCOMOTION: WHEELCHAIR: Activity did not occur on this shift LOCOMOTION: WHEELCHAIR - SCORE: 0-UNK COMPREHENSION: COMPREHENSION: TYPE: Both COMPREHENSION - STEP 1: Does the patient require help from a person or device, or need extra time to understand complex and a bstract ideas (such as current events, finances, discharge planning, medical issues, relationships, e tc)? No. COMPREHENSION - STEP 2: Does the patient need extra time, require an assistive device (such as glasses for visual comprehensi on or a hearing aid for auditory comprehension) or does s/he have mild difficulty understanding compl ex and abstract information? Yes. COMPREHENSION - SCORE: 6-ABIGAIL EXPRESSION EXPRESSION: TYPE: Both EXPRESSION - STEP 1: Does the patient require help from a person or device, or need extra time expressing complex and abst ract ideas (such as current events, finances, discharge planning, medical issues, relationships, etc) ? No. EXPRESSION - STEP 2: Does the patient need extra time, require an assistive device (such as augmentive communication syste m or a communication board), OR does s/he have mild difficulty expressing complex and abstract ideas (including mild dysarthria or mild word-find problems)? No. EXPRESSION - SCORE: 7-IND SOCIAL INTERACTION: SOCIAL INTERACTION - STEP 1: Does the patient require a helper to interact with others in social and therapeutic situations? No. SOCIAL INTERACTION - STEP 2: Does the patient need extra time in social situations, OR does s/he interact with staff, other patien ts, and family members ONLY in structured environments, OR does s/he require medication for social in teraction? No. SOCIAL INTERACTION - SCORE: 7-IND PROBLEM SOLVING: PROBLEM SOLVING - STEP 1: Does the patient need help from a person or device, or need extra time to solve complex problems such as managing a checking account or confronting interpersonal problems? No. PROBLEM SOLVING - STEP 2: Does the patient require extra time to make decisions or solve problems, OR does s/he have slight dif ficulty reading, initiating, or self-correcting in unfamiliar situations? No. PROBLEM SOLVING - SCORE: 7-IND MEMORY: MEMORY - STEP 1: Does the patient need help from a person or device, or need extra time to remember frequently encount ered people, daily routines, and executing requests? No. MEMORY - STEP 2: Does the patient have slight difficulty recognizing frequently encountered people, daily routines, or executing requests without the need for repetition or using self-initiated or environmental cues to remember? No. MEMORY - SCORE: 7-IND SIGNATURE PANEL: The following modified sections: Eating - Score, Grooming - Score, Bathing - Score, Dressing - Upper Body - Score, Dressing - Lower Body - Score, Toileting - Score, Bladder Management - Score, Bowel Man agement - Score, Transfers: Bed, Chair, Wheelchair - Score, Transfers: Toilet - Score, Transfers: Vicki wer - Score, Transfers: Tub - Score, Locomotion: Walk - Score, Locomotion: Wheelchair - Score, Compre hension - Score, Expression - Score, Social Interaction - Score, Problem Solving - Score, Memory - Sc ore were [electronically] signed by Eva Zhang CNA on WedJan 27 2019 02:07:41 T-0500 ([facility] Time)
[2019-01-27] MEDS: FERROUS SULFATE 325 MG TAB PO SCH (08:00)
[2019-01-27] MEDS: ENOXAPARIN 40 MG/0.4 ML SQ SCH (08:25)
[2019-01-27] MEDS: GLIMEPIRIDE 2 MG TABLET PO SCH ×2 (08:26→20:29)
[2019-01-27] MEDS: GABAPENTIN 100 MG CAP PO SCH ×2 (08:26→20:24)
[2019-01-27] MEDS: LOSARTAN POTASSIUM 50 MG TABLET PO SCH (08:26)
[2019-01-27] MEDS: FE SULF/FA/VIT B COMP & C TAB PO SCH (08:26)
[2019-01-27] MEDS: METFORMIN ER 500 MG TAB PO SCH ×2 (08:26→20:25)
[2019-01-27] MEDS: DOCUSATE NA 100 MG CAP PO SCH ×2 (08:26→20:25)
[2019-01-27] MEDS: NEBIVOLOL HCL 20 MG TABLET PO SCH (08:27)
[2019-01-27] MEDS: NICOTINE 21 MG/PAT TD SCH (08:27)
[2019-01-27] MEDS: PROMOD 30 ML DOSE PO SCH ×2 (08:30→20:00)
[2019-01-27] MEDS: INSULIN -REGULAR HUMAN 50 UNIT/0.5 ML ML SQ SCH ×4 (09:05→20:26)
--- NOTE | 2019-01-27 10:20 | P.RH.PN ---
Estimated Length of Stay: 14 Expected Discharge Date: 02/01/19 Discharge Disposition Plan: Home Family Support: Yes Custodial Goal: Mobility, Transfers, Self Care Vital Signs: Last Vital Signs Temp 97.4 F 01/27/19 07:44 Pulse 60 01/27/19 08:27 Resp 20 01/27/19 07:44 BP 141/63 H 01/27/19 08:27 Pulse Ox 96 01/27/19 07:44 Laboratory: Laboratory Last Values WBC 8.2 K/uL (4.3-10.9) 01/26/19 06:40 RBC 3.02 M/uL (3.86-4.86) L 01/26/19 06:40 Hgb 8.9 g/dL (12.0-15.0) L 01/26/19 06:40 Hct 26.3 % (36.0-45.0) L 01/26/19 06:40 MCV 87.1 fL (80-100) 01/26/19 06:40 MCH 29.5 pg (27.0-35.0) 01/26/19 06:40 MCHC 33.9 g/dL (32.0-36.0) 01/26/19 06:40 RDW 14.4 % (12.1-15.2) 01/26/19 06:40 Plt Count 329 K/uL (152-406) 01/26/19 06:40 MPV 8.3 fL (7.6-11.3) 01/26/19 06:40 Neutrophils % 71.0 % (41.7-73.7) 01/26/19 06:40 Lymphocytes % 14.8 % (15.3-44.8) L 01/26/19 06:40 Monocytes % 11.5 % (3.3-12.3) 01/26/19 06:40 Eosinophils % 2.3 % (0-4.4) 01/26/19 06:40 Basophils % 0.4 % (0-1.3) 01/26/19 06:40 Absolute Neutrophils 5.8 K/uL (1.8-8.0) 01/26/19 06:40 Absolute Lymphocytes 1.2 K/uL (0.7-4.9) 01/26/19 06:40 Absolute Monocytes 0.9 K/uL (0.1-1.3) 01/26/19 06:40 Absolute Eosinophils 0.2 K/uL (0-0.5) 01/26/19 06:40 Absolute Basophils 0.0 K/uL (0-0.5) 01/26/19 06:40 Sodium 140 mmol/L (136-145) 01/26/19 06:40 Potassium 4.6 mmol/L (3.5-5.1) 01/26/19 06:40 Chloride 111 mmol/L (98-107) H 01/26/19 06:40 Carbon Dioxide 25 mmol/L (21-32) 01/26/19 06:40 BUN 41 mg/dL (7-18) H 01/26/19 06:40 Creatinine 1.26 mg/dL (0.55-1.3) 01/26/19 06:40 Estimated GFR 41 mL/min (=/>90) L 01/26/19 06:40 Glucose 134 mg/dL (74-106) H 01/26/19 06:40 POC Glucose 238 mg/dl (65-120) H 01/27/19 08:17 Calcium 9.4 mg/dL (8.5-10.1) 01/26/19 06:40 Magnesium 2.4 mg/dL (1.8-2.4) 01/20/19 05:59 Albumin 2.7 g/dL (3.4-5.0) L 01/26/19 06:40 Prealbumin 14.4 mg/dL (20-40) L 01/26/19 06:40 Weight: 144 lb 4.8 oz Wound Present: Yes Closed Surgical Incision Present: Yes Negative Pressure Wound Therapy Present: No Physician Update: Labs have been reviewed. Prealbumin and Hgb are mildly low. She is on hemocyte plus and promod. She is doing well with physical therapy modified independent with speech and transfers. She is at contact guard assistance with ambulation for touch down weight bearing status. Pain Issues: [place] 5mg Q4H PRN. Tramadol 50mg TID PRN Functional Improvement: Patient has met all short-term goals at this time and is progressing well toward long-term goals. Patient shows good overall work ethic and is improving w/ safety awareness. Functional Improvement Occupational Therapy: Pt can benifit with further therapy to address overall weakness and cont to educate and train pt on using A/ E as needed for LB dressing and bathing. Cont to educate and train pt on energy conservation techniques and safety for adl and Iadl tasks. Cont to strengthen pt 's UB strength and static standing balance for clothing while managing and maintaining TDWB, pt still requires cues at times to remind pt about TDWB when pt stands up. Cont with the the goals. Speech Therapy Update: Patient is at MOD I - SUPV for auditory comprehension, MOD I for verbal expression, MOD I for social interaction, MOD I for problem solcing, and SUPV for memory. Summary: Patient's care plan and [facility] goals have been reviewed and revised as necessary. Please see the Rehabilitation Signature page for all necessary signatures.
--- NOTE | 2019-01-27 10:22 | P.RH.PN ---
Estimated Length of Stay: 14 Expected Discharge Date: 02/02/19 Discharge Disposition Plan: Home Family Support: Yes [facility]sp Goal: Mobility, Transfers, Self Care Vital Signs: Last Vital Signs Temp 97.4 F 01/27/19 07:44 Pulse 60 01/27/19 08:27 Resp 20 01/27/19 07:44 BP 141/63 H 01/27/19 08:27 Pulse Ox 96 01/27/19 07:44 Laboratory: Laboratory Last Values WBC 8.2 K/uL (4.3-10.9) 01/26/19 06:40 RBC 3.02 M/uL (3.86-4.86) L 01/26/19 06:40 Hgb 8.9 g/dL (12.0-15.0) L 01/26/19 06:40 Hct 26.3 % (36.0-45.0) L 01/26/19 06:40 MCV 87.1 fL (80-100) 01/26/19 06:40 MCH 29.5 pg (27.0-35.0) 01/26/19 06:40 MCHC 33.9 g/dL (32.0-36.0) 01/26/19 06:40 RDW 14.4 % (12.1-15.2) 01/26/19 06:40 Plt Count 329 K/uL (152-406) 01/26/19 06:40 MPV 8.3 fL (7.6-11.3) 01/26/19 06:40 Neutrophils % 71.0 % (41.7-73.7) 01/26/19 06:40 Lymphocytes % 14.8 % (15.3-44.8) L 01/26/19 06:40 Monocytes % 11.5 % (3.3-12.3) 01/26/19 06:40 Eosinophils % 2.3 % (0-4.4) 01/26/19 06:40 Basophils % 0.4 % (0-1.3) 01/26/19 06:40 Absolute Neutrophils 5.8 K/uL (1.8-8.0) 01/26/19 06:40 Absolute Lymphocytes 1.2 K/uL (0.7-4.9) 01/26/19 06:40 Absolute Monocytes 0.9 K/uL (0.1-1.3) 01/26/19 06:40 Absolute Eosinophils 0.2 K/uL (0-0.5) 01/26/19 06:40 Absolute Basophils 0.0 K/uL (0-0.5) 01/26/19 06:40 Sodium 140 mmol/L (136-145) 01/26/19 06:40 Potassium 4.6 mmol/L (3.5-5.1) 01/26/19 06:40 Chloride 111 mmol/L (98-107) H 01/26/19 06:40 Carbon Dioxide 25 mmol/L (21-32) 01/26/19 06:40 BUN 41 mg/dL (7-18) H 01/26/19 06:40 Creatinine 1.26 mg/dL (0.55-1.3) 01/26/19 06:40 Estimated GFR 41 mL/min (=/>90) L 01/26/19 06:40 Glucose 134 mg/dL (74-106) H 01/26/19 06:40 POC Glucose 238 mg/dl (65-120) H 01/27/19 08:17 Calcium 9.4 mg/dL (8.5-10.1) 01/26/19 06:40 Magnesium 2.4 mg/dL (1.8-2.4) 01/20/19 05:59 Albumin 2.7 g/dL (3.4-5.0) L 01/26/19 06:40 Prealbumin 14.4 mg/dL (20-40) L 01/26/19 06:40 Weight: 144 lb 4.8 oz Wound Present: Yes Closed Surgical Incision Present: Yes Negative Pressure Wound Therapy Present: No Physician Update: Now on mechanical soft diet. He is limited by fatigue but walks 250' with contact guard assistance. Pain Issues: [place] 5mg Q4H PRN. Tramadol 50mg TID PRN Functional Improvement: Patient has met all short-term goals at this time and is progressing well toward long-term goals. Patient shows good overall work ethic and is improving w/ safety awareness. Functional Improvement Occupational Therapy: Pt can benifit with further therapy to address overall weakness and cont to educate and train pt on using A/ E as needed for LB dressing and bathing. Cont to educate and train pt on energy conservation techniques and safety for adl and Iadl tasks. Cont to strengthen pt 's UB strength and static standing balance for clothing while managing and maintaining TDWB, pt still requires cues at times to remind pt about TDWB when pt stands up. Cont with the the goals. Speech Therapy Update: Patient is at MOD I - SUPV for auditory comprehension, MOD I for verbal expression, MOD I for social interaction, MOD I for problem solcing, and SUPV for memory. Summary: Patient's care plan and longterm goals have been reviewed and revised as necessary. Please see the Rehabilitation Signature page for all necessary signatures.
--- NOTE | 2019-01-27 10:27 | P.RH.PN ---
Estimated Length of Stay: 14 Expected Discharge Date: 01/31/19 Discharge Disposition Plan: Home Family Support: Yes Residential Goal: Mobility, Transfers, Self Care Vital Signs: Last Vital Signs Temp 97.4 F 01/27/19 07:44 Pulse 60 01/27/19 08:27 Resp 20 01/27/19 07:44 BP 141/63 H 01/27/19 08:27 Pulse Ox 96 01/27/19 07:44 Laboratory: Laboratory Last Values WBC 8.2 K/uL (4.3-10.9) 01/26/19 06:40 RBC 3.02 M/uL (3.86-4.86) L 01/26/19 06:40 Hgb 8.9 g/dL (12.0-15.0) L 01/26/19 06:40 Hct 26.3 % (36.0-45.0) L 01/26/19 06:40 MCV 87.1 fL (80-100) 01/26/19 06:40 MCH 29.5 pg (27.0-35.0) 01/26/19 06:40 MCHC 33.9 g/dL (32.0-36.0) 01/26/19 06:40 RDW 14.4 % (12.1-15.2) 01/26/19 06:40 Plt Count 329 K/uL (152-406) 01/26/19 06:40 MPV 8.3 fL (7.6-11.3) 01/26/19 06:40 Neutrophils % 71.0 % (41.7-73.7) 01/26/19 06:40 Lymphocytes % 14.8 % (15.3-44.8) L 01/26/19 06:40 Monocytes % 11.5 % (3.3-12.3) 01/26/19 06:40 Eosinophils % 2.3 % (0-4.4) 01/26/19 06:40 Basophils % 0.4 % (0-1.3) 01/26/19 06:40 Absolute Neutrophils 5.8 K/uL (1.8-8.0) 01/26/19 06:40 Absolute Lymphocytes 1.2 K/uL (0.7-4.9) 01/26/19 06:40 Absolute Monocytes 0.9 K/uL (0.1-1.3) 01/26/19 06:40 Absolute Eosinophils 0.2 K/uL (0-0.5) 01/26/19 06:40 Absolute Basophils 0.0 K/uL (0-0.5) 01/26/19 06:40 Sodium 140 mmol/L (136-145) 01/26/19 06:40 Potassium 4.6 mmol/L (3.5-5.1) 01/26/19 06:40 Chloride 111 mmol/L (98-107) H 01/26/19 06:40 Carbon Dioxide 25 mmol/L (21-32) 01/26/19 06:40 BUN 41 mg/dL (7-18) H 01/26/19 06:40 Creatinine 1.26 mg/dL (0.55-1.3) 01/26/19 06:40 Estimated GFR 41 mL/min (=/>90) L 01/26/19 06:40 Glucose 134 mg/dL (74-106) H 01/26/19 06:40 POC Glucose 238 mg/dl (65-120) H 01/27/19 08:17 Calcium 9.4 mg/dL (8.5-10.1) 01/26/19 06:40 Magnesium 2.4 mg/dL (1.8-2.4) 01/20/19 05:59 Albumin 2.7 g/dL (3.4-5.0) L 01/26/19 06:40 Prealbumin 14.4 mg/dL (20-40) L 01/26/19 06:40 Weight: 144 lb 4.8 oz Wound Present: Yes Closed Surgical Incision Present: Yes Negative Pressure Wound Therapy Present: No Physician Update: Her labs are stable 10.9. She is only able to walk 70' with contact guard and up to minimum assistance with transfers. She will go home alone and could improve with another week of therapy. Pain Issues: [place] 5mg Q4H PRN. Tramadol 50mg TID PRN Functional Improvement: Patient has met all short-term goals at this time and is progressing well toward long-term goals. Patient shows good overall work ethic and is improving w/ safety awareness. Functional Improvement Occupational Therapy: Pt can benifit with further therapy to address overall weakness and cont to educate and train pt on using A/ E as needed for LB dressing and bathing. Cont to educate and train pt on energy conservation techniques and safety for adl and Iadl tasks. Cont to strengthen pt 's UB strength and static standing balance for clothing while managing and maintaining TDWB, pt still requires cues at times to remind pt about TDWB when pt stands up. Cont with the the goals. Speech Therapy Update: Patient is at MOD I - SUPV for auditory comprehension, MOD I for verbal expression, MOD I for social interaction, MOD I for problem solcing, and SUPV for memory. Summary: Patient's care plan and care home goals have been reviewed and revised as necessary. Please see the Rehabilitation Signature page for all necessary signatures.
--- NOTE | 2019-01-27 11:30 | FAST ---
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 Lamont Mendez M.D. ADMISSION DIAGNOSIS: - Orthopaedic Disorders 08 - Unilateral Hip Fracture (08.11) LEFT HIP INTERTROCHANTERIC FRACTURE. EATING: EATING - STEP 1: Does the patient require the assistance of a person or device, or need extra time when eating? Yes. EATING - STEP 2: Does the patient require the assistance of a helper? No, patient only requires an assistive device, O R s/he takes more than reasonable time to eat, OR there is a safety concern, OR s/he requires modifie d food consistency EATING - SCORE: 6-ABIGAIL GROOMING: Comb/brush hair Oral care Wash, rinse, and dry face Wash, rinse, and dry hands GROOMING - STEP 1: Does the patient require the assistance of a person or device, or need extra time when grooming? Yes. GROOMING - STEP 2: Does the patient require the assistance of a helper? No. The patient only requires an assistive devic e, OR takes more than reasonable time to groom, OR there is a concern for safety as the patient groom s GROOMING - SCORE: 6-ABIGAIL BATHING: Activity did not occur on this shift BATHING - SCORE: 0-UNK DRESSING - UPPER BODY: Activity did not occur on this shift ARTICLES SCORE Total number of steps: 0 DRESSING - UPPER BODY - SCORE: 0-UNK DRESSING - LOWER BODY: Activity did not occur on this shift ARTICLES SCORE Total number of steps: 0 DRESSING - LOWER BODY - SCORE: 0-UNK TOILETING: TOILETING - STEP 1: Does the patient require the assistance of a person or device, or need extra time with toileting? Yes . TOILETING - STEP 2: Does the patient require the assistance of a helper? Yes. TOILETING - STEP 3: How much assistance does the patient require from the helper? Hands-on assistance from the helper TOILETING - STEP 4: Of the 3 tasks: 1) Adjusting clothing prior to use, 2) Cleansing of perineal area, 3) Adjusting clot jonatan after use; How many tasks does the patient perform WITHOUT assistance of the helper? Three tasks with steadying assistance from the helper TOILETING - SCORE: 4-MIN BLADDER MANAGEMENT: BLADDER MANAGEMENT - STEP 1: Does the patient control the bladder completely and intentionally without equipment or devices or med ications, and is always continent? Yes. BLADDER MANAGEMENT - SCORE: 7-IND BLADDER MANAGEMENT - FREQUENCY OF ACCIDENTS: BLADDER MANAGEMENT(FA) - STEP 1: How many accidents has the patient had during the current shift? 0 BOWEL MANAGEMENT: BOWEL MANAGEMENT - STEP 1: Does the patient control bowels completely and intentionally without equipment devices or medications AND is always continent? No. BOWEL MANAGEMENT - STEP 2: Does the patient require the assistance of a helper? No, patient requires medication for control such as stool softeners, suppositories, laxatives, enemas, or OTC medications BOWEL MANAGEMENT - SCORE: 6-ABIGAIL BOWEL MANAGEMENT - FREQUENCY OF ACCIDENTS: BOWEL MANAGEMENT(FA) - STEP 1: How many accidents has the patient had during the current shift? 0 TRANSFERS: BED, CHAIR, WHEELCHAIR: TRANSFERS: BED, CHAIR, WHEELCHAIR - STEP 1: Does the patient require assistance of a person or device, or need extra time with bed, chair, or whe elchair transfers? Yes. TRANSFERS: BED, CHAIR, WHEELCHAIR - STEP 2: Does the patient require the assistance of a helper? Yes. TRANSFERS: BED, CHAIR, WHEELCHAIR - STEP 3: How much assistance does the patient require from the helper? Steadying/guiding assistance TRANSFERS: BED, CHAIR, WHEELCHAIR - SCORE: 4-MIN TRANSFERS: TOILET: TRANSFERS: TOILET - STEP 1: Does the patient require the assistance of a person or device, or need extra time with toilet transfe rs? Yes. TRANSFERS: TOILET - STEP 2: Does the patient require the assistance of a helper? Yes. TRANSFERS: TOILET - STEP 3: How much assistance does the patient require from the helper? Patient performs half or more of the tr ansferring tasks TRANSFERS: TOILET - STEP 4: Does the patient need only incidental help such as contact guard or steadying during toilet transfer? Yes. TRANSFERS: TOILET - SCORE: 4-MIN TRANSFERS: SHOWER: Activity did not occur on this shift TRANSFERS: SHOWER - SCORE: 0-UNK TRANSFERS: TUB: Activity did not occur on this shift TRANSFERS: TUB - SCORE: 0-UNK LOCOMOTION: WALK: Activity did not occur on this shift LOCOMOTION: WALK - SCORE: 0-UNK LOCOMOTION: WHEELCHAIR: LOCOMOTION: WHEELCHAIR - STEP 1: Does the patient need help to go 150 feet in a wheelchair? Yes. LOCOMOTION: WHEELCHAIR - STEP 2: How much assistance does the patient need from the helper? Only supervision, cuing, or coaxing LOCOMOTION: WHEELCHAIR - SCORE: 5-SUP COMPREHENSION: COMPREHENSION: TYPE: Both COMPREHENSION - STEP 1: Does the patient require help from a person or device, or need extra time to understand complex and a bstract ideas (such as current events, finances, discharge planning, medical issues, relationships, e tc)? No. COMPREHENSION - STEP 2: Does the patient need extra time, require an assistive device (such as glasses for visual comprehensi on or a hearing aid for auditory comprehension) or does s/he have mild difficulty understanding compl ex and abstract information? No. COMPREHENSION - SCORE: 7-IND EXPRESSION EXPRESSION: TYPE: Both EXPRESSION - STEP 1: Does the patient require help from a person or device, or need extra time expressing complex and abst ract ideas (such as current events, finances, discharge planning, medical issues, relationships, etc) ? No. EXPRESSION - STEP 2: Does the patient need extra time, require an assistive device (such as augmentive communication syste m or a communication board), OR does s/he have mild difficulty expressing complex and abstract ideas (including mild dysarthria or mild word-find problems)? Yes. EXPRESSION - SCORE: 6-ABIGAIL SOCIAL INTERACTION: SOCIAL INTERACTION - STEP 1: Does the patient require a helper to interact with others in social and therapeutic situations? No. SOCIAL INTERACTION - STEP 2: Does the patient need extra time in social situations, OR does s/he interact with staff, other patien ts, and family members ONLY in structured environments, OR does s/he require medication for social in teraction? Yes, patient needs extra time SOCIAL INTERACTION - SCORE: 6-AIBGAIL PROBLEM SOLVING: PROBLEM SOLVING - STEP 1: Does the patient need help from a person or device, or need extra time to solve complex problems such as managing a checking account or confronting interpersonal problems? No. PROBLEM SOLVING - STEP 2: Does the patient require extra time to make decisions or solve problems, OR does s/he have slight dif ficulty reading, initiating, or self-correcting in unfamiliar situations? Yes, patient needs extra ti me. PROBLEM SOLVING - SCORE: 6-ABIGAIL MEMORY: MEMORY - STEP 1: Does the patient need help from a person or device, or need extra time to remember frequently encount ered people, daily routines, and executing requests? No. MEMORY - STEP 2: Does the patient have slight difficulty recognizing frequently encountered people, daily routines, or executing requests without the need for repetition or using self-initiated or environmental cues to remember? Yes. MEMORY - SCORE: 6-ABIGAIL SIGNATURE PANEL: The following modified sections: Eating - Score, Grooming - Score, Bathing - Score, Dressing - Upper Body - Score, Dressing - Lower Body - Score, Toileting - Score, Bladder Management - Score, Bowel Man agement - Score, Transfers: Bed, Chair, Wheelchair - Score, Transfers: Toilet - Score, Transfers: Vicki wer - Score, Transfers: Tub - Score, Locomotion: Walk - Score, Locomotion: Wheelchair - Score, Compre hension - Score, Expression - Score, Social Interaction - Score, Problem Solving - Score, Memory - Sc ore were [electronically] signed by Sophie Kaiser C.N.A. on WedJan 27 2019 11:29:47 T-0500 (Centra l Daylight Time)
--- NOTE | 2019-01-27 15:08 | FAST ---
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 Lamont Mendez M.D. ADMISSION DIAGNOSIS: - Orthopaedic Disorders 08 - Unilateral Hip Fracture (08.11) LEFT HIP INTERTROCHANTERIC FRACTURE. EATING: Activity did not occur on this shift EATING - SCORE: 0-UNK GROOMING: Activity did not occur on this shift GROOMING - SCORE: 0-UNK BATHING: Activity did not occur on this shift BATHING - SCORE: 0-UNK DRESSING - UPPER BODY: Activity did not occur on this shift Patient is not dressing in public clothing ARTICLES SCORE Total number of steps: 0 DRESSING - UPPER BODY - SCORE: 0-UNK DRESSING - LOWER BODY: Activity did not occur on this shift Patient is not dressing in public clothing ARTICLES SCORE Total number of steps: 0 DRESSING - LOWER BODY - SCORE: 0-UNK TOILETING: Activity did not occur on this shift TOILETING - SCORE: 0-UNK BLADDER MANAGEMENT: Activity did not occur on this shift BLADDER MANAGEMENT - SCORE: 7-IND BOWEL MANAGEMENT: Activity did not occur on this shift BOWEL MANAGEMENT - SCORE: 7-IND TRANSFERS: BED, CHAIR, WHEELCHAIR: TRANSFERS: BED, CHAIR, WHEELCHAIR - STEP 1: Does the patient require assistance of a person or device, or need extra time with bed, chair, or whe elchair transfers? Yes. TRANSFERS: BED, CHAIR, WHEELCHAIR - STEP 2: Does the patient require the assistance of a helper? No. Patient only requires an assistive device fo r bed, chair, wheelchair transfers such as a sliding board, grab bar, or brace, OR s/he takes more th an reasonable time, OR there is a safety concern when s/he performs the transfers TRANSFERS: BED, CHAIR, WHEELCHAIR - SCORE: 6-ABIGAIL TRANSFERS: TOILET: Activity did not occur on this shift TRANSFERS: TOILET - SCORE: 0-UNK TRANSFERS: SHOWER: Activity did not occur on this shift TRANSFERS: SHOWER - SCORE: 0-UNK TRANSFERS: TUB: Activity did not occur on this shift TRANSFERS: TUB - SCORE: 0-UNK LOCOMOTION: WALK: LOCOMOTION: WALK - STEP 1: Does the patient need help from a person or device, or need extra time to walk 150 feet? Yes. LOCOMOTION: WALK - STEP 2: How much assistance does the patient require to walk a minimum of 150 feet? Only supervision, cuing, or coaxing LOCOMOTION: WALK - SCORE: 5-SUP LOCOMOTION: WHEELCHAIR: LOCOMOTION: WHEELCHAIR - STEP 1: Does the patient need help to go 150 feet in a wheelchair? No. LOCOMOTION: WHEELCHAIR - SCORE: 6-ABIGAIL LOCOMOTION: STAIRS: LOCOMOTION: STAIRS - STEP 1: Does the patient need help to go up and down 12 to 14 stairs? Yes. LOCOMOTION: STAIRS - STEP 2: How much assistance does the patient need from the helper to go a minimum of 12 to 14 stairs? The pat ient goes less than 12 stairs, but at least 4 stairs LOCOMOTION: STAIRS - SCORE: 2-MAX COMPREHENSION: COMPREHENSION - SCORE: 0-UNK EXPRESSION EXPRESSION - SCORE: 0-UNK SOCIAL INTERACTION: SOCIAL INTERACTION - SCORE: 0-UNK PROBLEM SOLVING: PROBLEM SOLVING - SCORE: 0-UNK MEMORY: MEMORY - SCORE: 0-UNK SIGNATURE PANEL: The following modified sections: Transfers: Bed, Chair, Wheelchair - Score, Transfers: Toilet - Score , Locomotion: Walk - Score, Locomotion: Wheelchair - Score, Locomotion: Stairs - Score were [steve lawrence] signed by David Garza PTA on WedJan 27 2019 15:07:23 GMT-0500 (Central Daylight Time)
--- NOTE | 2019-01-27 15:12 | FAST ---
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 Lamont Mendez M.D. ADMISSION DIAGNOSIS: - Orthopaedic Disorders 08 - Unilateral Hip Fracture (08.11) LEFT HIP INTERTROCHANTERIC FRACTURE. EATING: Activity did not occur on this shift EATING - SCORE: 0-UNK GROOMING: Activity did not occur on this shift GROOMING - SCORE: 0-UNK BATHING: Activity did not occur on this shift BATHING - SCORE: 0-UNK DRESSING - UPPER BODY: Activity did not occur on this shift Patient is not dressing in public clothing ARTICLES SCORE Total number of steps: 0 DRESSING - UPPER BODY - SCORE: 0-UNK DRESSING - LOWER BODY: Activity did not occur on this shift Patient is not dressing in public clothing ARTICLES SCORE Total number of steps: 0 DRESSING - LOWER BODY - SCORE: 0-UNK TOILETING: Activity did not occur on this shift TOILETING - SCORE: 0-UNK BLADDER MANAGEMENT: Activity did not occur on this shift BLADDER MANAGEMENT - SCORE: 7-IND BOWEL MANAGEMENT: Activity did not occur on this shift BOWEL MANAGEMENT - SCORE: 7-IND TRANSFERS: BED, CHAIR, WHEELCHAIR: TRANSFERS: BED, CHAIR, WHEELCHAIR - STEP 1: Does the patient require assistance of a person or device, or need extra time with bed, chair, or whe elchair transfers? Yes. TRANSFERS: BED, CHAIR, WHEELCHAIR - STEP 2: Does the patient require the assistance of a helper? No. Patient only requires an assistive device fo r bed, chair, wheelchair transfers such as a sliding board, grab bar, or brace, OR s/he takes more th an reasonable time, OR there is a safety concern when s/he performs the transfers TRANSFERS: BED, CHAIR, WHEELCHAIR - SCORE: 6-ABIGAIL TRANSFERS: TOILET: Activity did not occur on this shift TRANSFERS: TOILET - SCORE: 0-UNK TRANSFERS: SHOWER: Activity did not occur on this shift TRANSFERS: SHOWER - SCORE: 0-UNK TRANSFERS: TUB: Activity did not occur on this shift TRANSFERS: TUB - SCORE: 0-UNK LOCOMOTION: WALK: LOCOMOTION: WALK - STEP 1: Does the patient need help from a person or device, or need extra time to walk 150 feet? Yes. LOCOMOTION: WALK - STEP 2: How much assistance does the patient require to walk a minimum of 150 feet? Only supervision, cuing, or coaxing LOCOMOTION: WALK - SCORE: 5-SUP LOCOMOTION: WHEELCHAIR: LOCOMOTION: WHEELCHAIR - STEP 1: Does the patient need help to go 150 feet in a wheelchair? No. LOCOMOTION: WHEELCHAIR - SCORE: 6-ABIGAIL LOCOMOTION: STAIRS: Activity did not occur on this shift LOCOMOTION: STAIRS - SCORE: 0-UNK COMPREHENSION: COMPREHENSION - SCORE: 0-UNK EXPRESSION EXPRESSION - SCORE: 0-UNK SOCIAL INTERACTION: SOCIAL INTERACTION - SCORE: 0-UNK PROBLEM SOLVING: PROBLEM SOLVING - SCORE: 0-UNK MEMORY: MEMORY - SCORE: 0-UNK SIGNATURE PANEL: The following modified sections: Transfers: Bed, Chair, Wheelchair - Score, Transfers: Toilet - Score , Locomotion: Walk - Score, Locomotion: Wheelchair - Score, Locomotion: Stairs - Score were [steve lawrence] signed by David Garza PTA on WedJan 27 2019 15:12:10 GMT-0500 (Central Daylight Time)
--- NOTE | 2019-01-27 15:16 | FAST ---
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 Lamont Mendez M.D. ADMISSION DIAGNOSIS: - Orthopaedic Disorders 08 - Unilateral Hip Fracture (08.11) LEFT HIP INTERTROCHANTERIC FRACTURE. EATING: Activity did not occur on this shift EATING - SCORE: 0-UNK GROOMING: Activity did not occur on this shift GROOMING - SCORE: 0-UNK BATHING: Activity did not occur on this shift BATHING - SCORE: 0-UNK DRESSING - UPPER BODY: Activity did not occur on this shift Patient is not dressing in public clothing ARTICLES SCORE Total number of steps: 0 DRESSING - UPPER BODY - SCORE: 0-UNK DRESSING - LOWER BODY: Activity did not occur on this shift Patient is not dressing in public clothing ARTICLES SCORE Total number of steps: 0 DRESSING - LOWER BODY - SCORE: 0-UNK TOILETING: Activity did not occur on this shift TOILETING - SCORE: 0-UNK BLADDER MANAGEMENT: Activity did not occur on this shift BLADDER MANAGEMENT - SCORE: 7-IND BOWEL MANAGEMENT: Activity did not occur on this shift BOWEL MANAGEMENT - SCORE: 7-IND TRANSFERS: BED, CHAIR, WHEELCHAIR: TRANSFERS: BED, CHAIR, WHEELCHAIR - STEP 1: Does the patient require assistance of a person or device, or need extra time with bed, chair, or whe elchair transfers? Yes. TRANSFERS: BED, CHAIR, WHEELCHAIR - STEP 2: Does the patient require the assistance of a helper? Yes. TRANSFERS: BED, CHAIR, WHEELCHAIR - STEP 3: How much assistance does the patient require from the helper? Only supervision TRANSFERS: BED, CHAIR, WHEELCHAIR - SCORE: 5-SUP TRANSFERS: TOILET: Activity did not occur on this shift TRANSFERS: TOILET - SCORE: 0-UNK TRANSFERS: SHOWER: Activity did not occur on this shift TRANSFERS: SHOWER - SCORE: 0-UNK TRANSFERS: TUB: Activity did not occur on this shift TRANSFERS: TUB - SCORE: 0-UNK LOCOMOTION: WALK: LOCOMOTION: WALK - STEP 1: Does the patient need help from a person or device, or need extra time to walk 150 feet? Yes. LOCOMOTION: WALK - STEP 2: How much assistance does the patient require to walk a minimum of 150 feet? Only supervision, cuing, or coaxing LOCOMOTION: WALK - SCORE: 5-SUP LOCOMOTION: WHEELCHAIR: LOCOMOTION: WHEELCHAIR - STEP 1: Does the patient need help to go 150 feet in a wheelchair? Yes. LOCOMOTION: WHEELCHAIR - STEP 2: How much assistance does the patient need from the helper? Only supervision, cuing, or coaxing LOCOMOTION: WHEELCHAIR - SCORE: 5-SUP LOCOMOTION: STAIRS: Activity did not occur on this shift LOCOMOTION: STAIRS - SCORE: 0-UNK COMPREHENSION: COMPREHENSION - SCORE: 0-UNK EXPRESSION EXPRESSION - SCORE: 0-UNK SOCIAL INTERACTION: SOCIAL INTERACTION - SCORE: 0-UNK PROBLEM SOLVING: PROBLEM SOLVING - SCORE: 0-UNK MEMORY: MEMORY - SCORE: 0-UNK SIGNATURE PANEL: The following modified sections: Transfers: Bed, Chair, Wheelchair - Score, Transfers: Toilet - Score , Locomotion: Walk - Score, Locomotion: Wheelchair - Score, Locomotion: Stairs - Score were [steve lawrence] signed by David Garza PTA on WedJan 27 2019 15:15:31 GMT-0500 (Central Daylight Time)
[2019-01-27] MEDS: ATORVASTATIN 10 MG TAB PO SCH (20:25)
[2019-01-27] MEDS: AMLODIPINE 5 MG TAB PO SCH (20:25)
[2019-01-27] MEDS: MELATONIN 3 MG TABLET PO PRN (20:26)
[2019-01-27] MEDS: TRAMADOL HCL 50 MG TAB PO PRN (22:30)
--- NOTE | 2019-01-28 02:20 | FAST ---
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 Lamont Mendez M.D. ADMISSION DIAGNOSIS: - Orthopaedic Disorders 08 - Unilateral Hip Fracture (08.11) LEFT HIP INTERTROCHANTERIC FRACTURE. EATING: Activity did not occur on this shift EATING - SCORE: 0-UNK GROOMING: Oral care Wash, rinse, and dry face Wash, rinse, and dry hands GROOMING - STEP 1: Does the patient require the assistance of a person or device, or need extra time when grooming? Yes. GROOMING - STEP 2: Does the patient require the assistance of a helper? Yes. GROOMING - STEP 3: How much assistance does the patient require from the helper? Only prior equipment preparation/set up from the helper GROOMING - SCORE: 5-SUP BATHING: Activity did not occur on this shift BATHING - SCORE: 0-UNK DRESSING - UPPER BODY: Patient is not dressing in public clothing ARTICLES SCORE Total number of steps: 0 DRESSING - UPPER BODY - SCORE: 0-UNK DRESSING - LOWER BODY: Patient is not dressing in public clothing ARTICLES SCORE Total number of steps: 0 DRESSING - LOWER BODY - SCORE: 0-UNK TOILETING: TOILETING - STEP 1: Does the patient require the assistance of a person or device, or need extra time with toileting? Yes . TOILETING - STEP 2: Does the patient require the assistance of a helper? Yes. TOILETING - STEP 3: How much assistance does the patient require from the helper? Hands-on assistance from the helper TOILETING - STEP 4: Of the 3 tasks: 1) Adjusting clothing prior to use, 2) Cleansing of perineal area, 3) Adjusting clot jonatan after use; How many tasks does the patient perform WITHOUT assistance of the helper? Three tasks with steadying assistance from the helper TOILETING - SCORE: 4-MIN BLADDER MANAGEMENT: BLADDER MANAGEMENT - STEP 1: Does the patient control the bladder completely and intentionally without equipment or devices or med ications, and is always continent? No. BLADDER MANAGEMENT - STEP 2: Does the patient require the assistance of a helper? Yes. BLADDER MANAGEMENT - STEP 3: How much assistance does the patient require from the helper? Only set-up of equipment - such as plac ing it within reach of the patient or emptying a device - to maintain either satisfactory voiding pat tern or managing an external device, such as an absorbent pad, ileal device, or catheter BLADDER MANAGEMENT - SCORE: 5-SUP BOWEL MANAGEMENT: Activity did not occur on this shift BOWEL MANAGEMENT - SCORE: 7-IND TRANSFERS: BED, CHAIR, WHEELCHAIR: TRANSFERS: BED, CHAIR, WHEELCHAIR - STEP 1: Does the patient require assistance of a person or device, or need extra time with bed, chair, or whe elchair transfers? Yes. TRANSFERS: BED, CHAIR, WHEELCHAIR - STEP 2: Does the patient require the assistance of a helper? Yes. TRANSFERS: BED, CHAIR, WHEELCHAIR - STEP 3: How much assistance does the patient require from the helper? Lifting of the legs TRANSFERS: BED, CHAIR, WHEELCHAIR - STEP 4: How many legs does the patient require the helper to lift? both legs TRANSFERS: BED, CHAIR, WHEELCHAIR - SCORE: 3-MOD TRANSFERS: TOILET: TRANSFERS: TOILET - STEP 1: Does the patient require the assistance of a person or device, or need extra time with toilet transfe rs? Yes. TRANSFERS: TOILET - STEP 2: Does the patient require the assistance of a helper? Yes. TRANSFERS: TOILET - STEP 3: How much assistance does the patient require from the helper? Only supervision, cuing, coaxing, OR he lp to set out transfer equipment or to lock brakes and/or lift foot rests TRANSFERS: TOILET - SCORE: 5-SUP TRANSFERS: SHOWER: Activity did not occur on this shift TRANSFERS: SHOWER - SCORE: 0-UNK TRANSFERS: TUB: Activity did not occur on this shift TRANSFERS: TUB - SCORE: 0-UNK LOCOMOTION: WALK: Activity did not occur on this shift LOCOMOTION: WALK - SCORE: 0-UNK LOCOMOTION: WHEELCHAIR: Activity did not occur on this shift LOCOMOTION: WHEELCHAIR - SCORE: 0-UNK COMPREHENSION: COMPREHENSION: TYPE: Both COMPREHENSION - STEP 1: Does the patient require help from a person or device, or need extra time to understand complex and a bstract ideas (such as current events, finances, discharge planning, medical issues, relationships, e tc)? No. COMPREHENSION - STEP 2: Does the patient need extra time, require an assistive device (such as glasses for visual comprehensi on or a hearing aid for auditory comprehension) or does s/he have mild difficulty understanding compl ex and abstract information? Yes. COMPREHENSION - SCORE: 6-ABIGAIL EXPRESSION EXPRESSION: TYPE: Both EXPRESSION - STEP 1: Does the patient require help from a person or device, or need extra time expressing complex and abst ract ideas (such as current events, finances, discharge planning, medical issues, relationships, etc) ? No. EXPRESSION - STEP 2: Does the patient need extra time, require an assistive device (such as augmentive communication syste m or a communication board), OR does s/he have mild difficulty expressing complex and abstract ideas (including mild dysarthria or mild word-find problems)? Yes. EXPRESSION - SCORE: 6-ABIGAIL SOCIAL INTERACTION: SOCIAL INTERACTION - STEP 1: Does the patient require a helper to interact with others in social and therapeutic situations? No. SOCIAL INTERACTION - STEP 2: Does the patient need extra time in social situations, OR does s/he interact with staff, other patien ts, and family members ONLY in structured environments, OR does s/he require medication for social in teraction? Yes, patient needs extra time SOCIAL INTERACTION - SCORE: 6-ABIGAIL PROBLEM SOLVING: PROBLEM SOLVING - STEP 1: Does the patient need help from a person or device, or need extra time to solve complex problems such as managing a checking account or confronting interpersonal problems? No. PROBLEM SOLVING - STEP 2: Does the patient require extra time to make decisions or solve problems, OR does s/he have slight dif ficulty reading, initiating, or self-correcting in unfamiliar situations? Yes, patient needs extra ti me. PROBLEM SOLVING - SCORE: 6-ABIGAIL MEMORY: MEMORY - STEP 1: Does the patient need help from a person or device, or need extra time to remember frequently encount ered people, daily routines, and executing requests? No. MEMORY - STEP 2: Does the patient have slight difficulty recognizing frequently encountered people, daily routines, or executing requests without the need for repetition or using self-initiated or environmental cues to remember? Yes. MEMORY - SCORE: 6-ABIGAIL
[2019-01-28] MEDS: INSULIN -REGULAR HUMAN 50 UNIT/0.5 ML ML SQ SCH ×4 (07:30→21:58)
[2019-01-28] MEDS: ENOXAPARIN 40 MG/0.4 ML SQ SCH (07:30)
[2019-01-28] MEDS: NICOTINE 21 MG/PAT TD SCH (08:00)
[2019-01-28] MEDS: DOCUSATE NA 100 MG CAP PO SCH ×2 (08:00→20:00)
[2019-01-28] MEDS: PROMOD 30 ML DOSE PO SCH ×2 (08:00→21:28)
[2019-01-28] MEDS: FE SULF/FA/VIT B COMP & C TAB PO SCH (08:27)
[2019-01-28] MEDS: NEBIVOLOL HCL 20 MG TABLET PO SCH (08:28)
[2019-01-28] MEDS: GLIMEPIRIDE 2 MG TABLET PO SCH ×2 (08:28→17:09)
[2019-01-28] MEDS: LOSARTAN POTASSIUM 50 MG TABLET PO SCH (08:28)
[2019-01-28] MEDS: METFORMIN ER 500 MG TAB PO SCH ×2 (08:29→21:26)
[2019-01-28] MEDS: GABAPENTIN 100 MG CAP PO SCH ×2 (08:29→21:28)
[2019-01-28] MEDS: FERROUS SULFATE 325 MG TAB PO SCH (08:29)
--- NOTE | 2019-01-28 14:19 | FAST ---
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 Lamont Mendez M.D. ADMISSION DIAGNOSIS: - Orthopaedic Disorders 08 - Unilateral Hip Fracture (08.11) LEFT HIP INTERTROCHANTERIC FRACTURE. EATING: EATING - STEP 1: Does the patient require the assistance of a person or device, or need extra time when eating? Yes. EATING - STEP 2: Does the patient require the assistance of a helper? No, patient only requires an assistive device, O R s/he takes more than reasonable time to eat, OR there is a safety concern, OR s/he requires modifie d food consistency EATING - SCORE: 6-ABIGAIL GROOMING: Comb/brush hair Oral care Wash, rinse, and dry face Wash, rinse, and dry hands GROOMING - STEP 1: Does the patient require the assistance of a person or device, or need extra time when grooming? Yes. GROOMING - STEP 2: Does the patient require the assistance of a helper? No. The patient only requires an assistive devic e, OR takes more than reasonable time to groom, OR there is a concern for safety as the patient groom s GROOMING - SCORE: 6-ABIGAIL BATHING: Activity did not occur on this shift BATHING - SCORE: 0-UNK DRESSING - UPPER BODY: Activity did not occur on this shift ARTICLES SCORE Total number of steps: 0 DRESSING - UPPER BODY - SCORE: 0-UNK DRESSING - LOWER BODY: Elastic waist pants (three steps) Underwear (three steps) ARTICLES SCORE Total number of steps: 6 DRESSING - LOWER BODY - STEP 1: Does the patient require help from a person or device, or need extra time when dressing below the [address] st? Yes. DRESSING - LOWER BODY - STEP 2: Does the patient require the assistance of a helper? No. Patient requires an assistive device such as a grape crusher. OR s/he takes more than reasonable time as s/he dresses the lower body, OR there is a con cern for safety when s/he dresses the lower body DRESSING - LOWER BODY - SCORE: 6-ABIGAIL TOILETING: TOILETING - STEP 1: Does the patient require the assistance of a person or device, or need extra time with toileting? Yes . TOILETING - STEP 2: Does the patient require the assistance of a helper? Yes. TOILETING - STEP 3: How much assistance does the patient require from the helper? Only supervision TOILETING - SCORE: 5-SUP BLADDER MANAGEMENT: BLADDER MANAGEMENT - STEP 1: Does the patient control the bladder completely and intentionally without equipment or devices or med ications, and is always continent? Yes. BLADDER MANAGEMENT - SCORE: 7-IND BLADDER MANAGEMENT - FREQUENCY OF ACCIDENTS: BLADDER MANAGEMENT(FA) - STEP 1: How many accidents has the patient had during the current shift? 0 BOWEL MANAGEMENT: BOWEL MANAGEMENT - STEP 1: Does the patient control bowels completely and intentionally without equipment devices or medications AND is always continent? No. BOWEL MANAGEMENT - STEP 2: Does the patient require the assistance of a helper? No, patient requires medication for control such as stool softeners, suppositories, laxatives, enemas, or OTC medications BOWEL MANAGEMENT - SCORE: 6-ABIGAIL BOWEL MANAGEMENT - FREQUENCY OF ACCIDENTS: BOWEL MANAGEMENT(FA) - STEP 1: How many accidents has the patient had during the current shift? 0 TRANSFERS: BED, CHAIR, WHEELCHAIR: TRANSFERS: BED, CHAIR, WHEELCHAIR - STEP 1: Does the patient require assistance of a person or device, or need extra time with bed, chair, or whe elchair transfers? Yes. TRANSFERS: BED, CHAIR, WHEELCHAIR - STEP 2: Does the patient require the assistance of a helper? Yes. TRANSFERS: BED, CHAIR, WHEELCHAIR - STEP 3: How much assistance does the patient require from the helper? Lifting of the legs TRANSFERS: BED, CHAIR, WHEELCHAIR - STEP 4: How many legs does the patient require the helper to lift? one leg TRANSFERS: BED, CHAIR, WHEELCHAIR - SCORE: 4-MIN TRANSFERS: TOILET: TRANSFERS: TOILET - STEP 1: Does the patient require the assistance of a person or device, or need extra time with toilet transfe rs? Yes. TRANSFERS: TOILET - STEP 2: Does the patient require the assistance of a helper? Yes. TRANSFERS: TOILET - STEP 3: How much assistance does the patient require from the helper? Patient performs half or more of the tr ansferring tasks TRANSFERS: TOILET - STEP 4: Does the patient need only incidental help such as contact guard or steadying during toilet transfer? Yes. TRANSFERS: TOILET - SCORE: 4-MIN TRANSFERS: SHOWER: Activity did not occur on this shift TRANSFERS: SHOWER - SCORE: 0-UNK TRANSFERS: TUB: Activity did not occur on this shift TRANSFERS: TUB - SCORE: 0-UNK LOCOMOTION: WALK: Activity did not occur on this shift LOCOMOTION: WALK - SCORE: 0-UNK LOCOMOTION: WHEELCHAIR: LOCOMOTION: WHEELCHAIR - STEP 1: Does the patient need help to go 150 feet in a wheelchair? Yes. LOCOMOTION: WHEELCHAIR - STEP 2: How much assistance does the patient need from the helper? Only supervision, cuing, or coaxing LOCOMOTION: WHEELCHAIR - SCORE: 5-SUP COMPREHENSION: COMPREHENSION: TYPE: Both COMPREHENSION - STEP 1: Does the patient require help from a person or device, or need extra time to understand complex and a bstract ideas (such as current events, finances, discharge planning, medical issues, relationships, e tc)? No. COMPREHENSION - STEP 2: Does the patient need extra time, require an assistive device (such as glasses for visual comprehensi on or a hearing aid for auditory comprehension) or does s/he have mild difficulty understanding compl ex and abstract information? Yes. COMPREHENSION - SCORE: 6-ABIGAIL EXPRESSION EXPRESSION: TYPE: Both EXPRESSION - STEP 1: Does the patient require help from a person or device, or need extra time expressing complex and abst ract ideas (such as current events, finances, discharge planning, medical issues, relationships, etc) ? No. EXPRESSION - STEP 2: Does the patient need extra time, require an assistive device (such as augmentive communication syste m or a communication board), OR does s/he have mild difficulty expressing complex and abstract ideas (including mild dysarthria or mild word-find problems)? Yes. EXPRESSION - SCORE: 6-ABIGAIL SOCIAL INTERACTION: SOCIAL INTERACTION - STEP 1: Does the patient require a helper to interact with others in social and therapeutic situations? No. SOCIAL INTERACTION - STEP 2: Does the patient need extra time in social situations, OR does s/he interact with staff, other patien ts, and family members ONLY in structured environments, OR does s/he require medication for social in teraction? Yes, patient needs extra time SOCIAL INTERACTION - SCORE: 6-ABIGAIL PROBLEM SOLVING: PROBLEM SOLVING - STEP 1: Does the patient need help from a person or device, or need extra time to solve complex problems such as managing a checking account or confronting interpersonal problems? No. PROBLEM SOLVING - STEP 2: Does the patient require extra time to make decisions or solve problems, OR does s/he have slight dif ficulty reading, initiating, or self-correcting in unfamiliar situations? Yes, patient needs extra ti me. PROBLEM SOLVING - SCORE: 6-ABIGAIL MEMORY: MEMORY - STEP 1: Does the patient need help from a person or device, or need extra time to remember frequently encount ered people, daily routines, and executing requests? No. MEMORY - STEP 2: Does the patient have slight difficulty recognizing frequently encountered people, daily routines, or executing requests without the need for repetition or using self-initiated or environmental cues to remember? Yes. MEMORY - SCORE: 6-ABIGAIL SIGNATURE PANEL: The following modified sections: Eating - Score, Grooming - Score, Bathing - Score, Dressing - Upper Body - Score, Dressing - Lower Body - Score, Toileting - Score, Bladder Management - Score, Bowel Man agement - Score, Transfers: Bed, Chair, Wheelchair - Score, Transfers: Toilet - Score, Transfers: Vicki wer - Score, Transfers: Tub - Score, Locomotion: Walk - Score, Locomotion: Wheelchair - Score, Compre hension - Score, Expression - Score, Social Interaction - Score, Problem Solving - Score, Memory - Sc ore were [electronically] signed by Sophie Kaiser C.N.A. on WedJan 28 2019 14:18:22 T-0500 (Centra l Daylight Time)
[2019-01-28] MEDS: PREMARIN VAGINAL CREAM VAG SCH (18:00)
[2019-01-28] MEDS: AMLODIPINE 5 MG TAB PO SCH (21:27)
[2019-01-28] MEDS: ATORVASTATIN 10 MG TAB PO SCH (21:28)
[2019-01-29] MEDS: TRAMADOL HCL 50 MG TAB PO PRN ×2 (00:05→20:18)
[2019-01-29] MEDS: MELATONIN 3 MG TABLET PO PRN ×2 (00:06→20:18)
--- NOTE | 2019-01-29 02:56 | FAST ---
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 Lamont Mendez M.D. ADMISSION DIAGNOSIS: - Orthopaedic Disorders 08 - Unilateral Hip Fracture (08.11) LEFT HIP INTERTROCHANTERIC FRACTURE. EATING: Activity did not occur on this shift EATING - SCORE: 0-UNK GROOMING: Oral care Wash, rinse, and dry hands GROOMING - STEP 1: Does the patient require the assistance of a person or device, or need extra time when grooming? Yes. GROOMING - STEP 2: Does the patient require the assistance of a helper? Yes. GROOMING - STEP 3: How much assistance does the patient require from the helper? Only prior equipment preparation/set up from the helper GROOMING - SCORE: 5-SUP BATHING: Activity did not occur on this shift BATHING - SCORE: 0-UNK DRESSING - UPPER BODY: Patient is not dressing in public clothing ARTICLES SCORE Total number of steps: 0 DRESSING - UPPER BODY - SCORE: 0-UNK DRESSING - LOWER BODY: Patient is not dressing in public clothing ARTICLES SCORE Total number of steps: 0 DRESSING - LOWER BODY - SCORE: 0-UNK TOILETING: TOILETING - STEP 1: Does the patient require the assistance of a person or device, or need extra time with toileting? Yes . TOILETING - STEP 2: Does the patient require the assistance of a helper? Yes. TOILETING - STEP 3: How much assistance does the patient require from the helper? Hands-on assistance from the helper TOILETING - STEP 4: Of the 3 tasks: 1) Adjusting clothing prior to use, 2) Cleansing of perineal area, 3) Adjusting clot jonatan after use; How many tasks does the patient perform WITHOUT assistance of the helper? Two tasks TOILETING - SCORE: 3-MOD BLADDER MANAGEMENT: BLADDER MANAGEMENT - STEP 1: Does the patient control the bladder completely and intentionally without equipment or devices or med ications, and is always continent? No. BLADDER MANAGEMENT - STEP 2: Does the patient require the assistance of a helper? No, patient only requires extra time BLADDER MANAGEMENT - SCORE: 6-ABIGAIL BOWEL MANAGEMENT: BOWEL MANAGEMENT - STEP 1: Does the patient control bowels completely and intentionally without equipment devices or medications AND is always continent? No. BOWEL MANAGEMENT - STEP 2: Does the patient require the assistance of a helper? No, patient requires medication for control such as stool softeners, suppositories, laxatives, enemas, or OTC medications BOWEL MANAGEMENT - SCORE: 6-ABIGAIL TRANSFERS: BED, CHAIR, WHEELCHAIR: TRANSFERS: BED, CHAIR, WHEELCHAIR - STEP 1: Does the patient require assistance of a person or device, or need extra time with bed, chair, or whe elchair transfers? Yes. TRANSFERS: BED, CHAIR, WHEELCHAIR - STEP 2: Does the patient require the assistance of a helper? Yes. TRANSFERS: BED, CHAIR, WHEELCHAIR - STEP 3: How much assistance does the patient require from the helper? Lifting of the legs TRANSFERS: BED, CHAIR, WHEELCHAIR - STEP 4: How many legs does the patient require the helper to lift? both legs TRANSFERS: BED, CHAIR, WHEELCHAIR - SCORE: 3-MOD TRANSFERS: TOILET: TRANSFERS: TOILET - STEP 1: Does the patient require the assistance of a person or device, or need extra time with toilet transfe rs? Yes. TRANSFERS: TOILET - STEP 2: Does the patient require the assistance of a helper? Yes. TRANSFERS: TOILET - STEP 3: How much assistance does the patient require from the helper? Only supervision, cuing, coaxing, OR he lp to set out transfer equipment or to lock brakes and/or lift foot rests TRANSFERS: TOILET - SCORE: 5-SUP TRANSFERS: SHOWER: Activity did not occur on this shift TRANSFERS: SHOWER - SCORE: 0-UNK TRANSFERS: TUB: Activity did not occur on this shift TRANSFERS: TUB - SCORE: 0-UNK LOCOMOTION: WALK: Activity did not occur on this shift LOCOMOTION: WALK - SCORE: 0-UNK LOCOMOTION: WHEELCHAIR: Activity did not occur on this shift LOCOMOTION: WHEELCHAIR - SCORE: 0-UNK COMPREHENSION: COMPREHENSION: TYPE: Both COMPREHENSION - STEP 1: Does the patient require help from a person or device, or need extra time to understand complex and a bstract ideas (such as current events, finances, discharge planning, medical issues, relationships, e tc)? No. COMPREHENSION - STEP 2: Does the patient need extra time, require an assistive device (such as glasses for visual comprehensi on or a hearing aid for auditory comprehension) or does s/he have mild difficulty understanding compl ex and abstract information? Yes. COMPREHENSION - SCORE: 6-ABIGAIL EXPRESSION EXPRESSION: TYPE: Both EXPRESSION - STEP 1: Does the patient require help from a person or device, or need extra time expressing complex and abst ract ideas (such as current events, finances, discharge planning, medical issues, relationships, etc) ? No. EXPRESSION - STEP 2: Does the patient need extra time, require an assistive device (such as augmentive communication syste m or a communication board), OR does s/he have mild difficulty expressing complex and abstract ideas (including mild dysarthria or mild word-find problems)? Yes. EXPRESSION - SCORE: 6-ABIGAIL SOCIAL INTERACTION: SOCIAL INTERACTION - STEP 1: Does the patient require a helper to interact with others in social and therapeutic situations? No. SOCIAL INTERACTION - STEP 2: Does the patient need extra time in social situations, OR does s/he interact with staff, other patien ts, and family members ONLY in structured environments, OR does s/he require medication for social in teraction? Yes, patient needs extra time SOCIAL INTERACTION - SCORE: 6-ABIGAIL PROBLEM SOLVING: PROBLEM SOLVING - STEP 1: Does the patient need help from a person or device, or need extra time to solve complex problems such as managing a checking account or confronting interpersonal problems? Yes. PROBLEM SOLVING - STEP 2: Does the patient solve basic routine problems half or more of the time? Yes. PROBLEM SOLVING - STEP 3: How often does the patient need help to solve basic routine problems? Less than 10% of the time PROBLEM SOLVING - SCORE: 5-SUP MEMORY: MEMORY - STEP 1: Does the patient need help from a person or device, or need extra time to remember frequently encount ered people, daily routines, and executing requests? No. MEMORY - STEP 2: Does the patient have slight difficulty recognizing frequently encountered people, daily routines, or executing requests without the need for repetition or using self-initiated or environmental cues to remember? Yes. MEMORY - SCORE: 6-ABIGAIL SIGNATURE PANEL: The following modified sections: Eating - Score, Grooming - Score, Dressing - Upper Body - Score, Darian ssing - Lower Body - Score, Toileting - Score, Bladder Management - Score, Bowel Management - Score, Transfers: Bed, Chair, Wheelchair - Score, Transfers: Toilet - Score, Transfers: Shower - Score, Puentes sfers: Tub - Score, Locomotion: Walk - Score, Locomotion: Wheelchair - Score, Comprehension - Score, Expression - Score, Social Interaction - Score, Problem Solving - Score, Memory - Score were [electro nically] signed by Tomasa Yo CNA on WedJan 29 2019 02:55:09 GMT-0500 (Central Daylight Time)
[2019-01-29] MEDS: ENOXAPARIN 40 MG/0.4 ML SQ SCH (06:49)
[2019-01-29] MEDS: INSULIN -REGULAR HUMAN 50 UNIT/0.5 ML ML SQ SCH ×4 (07:30→21:27)
[2019-01-29] MEDS: DOCUSATE NA 100 MG CAP PO SCH ×2 (08:00→20:00)
[2019-01-29] MEDS: PROMOD 30 ML DOSE PO SCH ×2 (08:00→20:20)
[2019-01-29] MEDS: METFORMIN ER 500 MG TAB PO SCH ×2 (08:22→17:04)
[2019-01-29] MEDS: GABAPENTIN 100 MG CAP PO SCH ×2 (08:23→20:18)
[2019-01-29] MEDS: GLIMEPIRIDE 2 MG TABLET PO SCH ×2 (08:23→17:04)
[2019-01-29] MEDS: FE SULF/FA/VIT B COMP & C TAB PO SCH (08:23)
[2019-01-29] MEDS: FERROUS SULFATE 325 MG TAB PO SCH (08:23)
[2019-01-29] MEDS: NEBIVOLOL HCL 20 MG TABLET PO SCH (08:23)
[2019-01-29] MEDS: NICOTINE 21 MG/PAT TD SCH (08:24)
[2019-01-29] MEDS: LOSARTAN POTASSIUM 50 MG TABLET PO SCH (08:24)
--- NOTE | 2019-01-29 14:00 | FAST ---
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 Lamont Mendez M.D. ADMISSION DIAGNOSIS: - Orthopaedic Disorders 08 - Unilateral Hip Fracture (08.11) LEFT HIP INTERTROCHANTERIC FRACTURE. EATING: EATING - STEP 1: Does the patient require the assistance of a person or device, or need extra time when eating? Yes. EATING - STEP 2: Does the patient require the assistance of a helper? No, patient only requires an assistive device, O R s/he takes more than reasonable time to eat, OR there is a safety concern, OR s/he requires modifie d food consistency EATING - SCORE: 6-BAIGAIL GROOMING: Comb/brush hair Oral care Wash, rinse, and dry face Wash, rinse, and dry hands GROOMING - STEP 1: Does the patient require the assistance of a person or device, or need extra time when grooming? Yes. GROOMING - STEP 2: Does the patient require the assistance of a helper? No. The patient only requires an assistive devic e, OR takes more than reasonable time to groom, OR there is a concern for safety as the patient groom s GROOMING - SCORE: 6-ABIGAIL BATHING: Activity did not occur on this shift BATHING - SCORE: 0-UNK DRESSING - UPPER BODY: T-shirt/pullover shirt (four steps) ARTICLES SCORE Total number of steps: 4 DRESSING - UPPER BODY - STEP 1: Does the patient require help from a person or device, or need extra time when dressing above the [address]? Yes. DRESSING - UPPER BODY - STEP 2: Does the patient require the assistance of a helper? Yes. DRESSING - UPPER BODY - STEP 3: Does the helper touch the patient while dressing? No. DRESSING - UPPER BODY - SCORE: 5-SUP DRESSING - LOWER BODY: Slip-on shoe - Left foot (one step) Slip-on shoe - Right foot (one step) Underwear (three steps) ARTICLES SCORE Total number of steps: 5 DRESSING - LOWER BODY - STEP 1: Does the patient require help from a person or device, or need extra time when dressing below the [address]? Yes. DRESSING - LOWER BODY - STEP 2: Does the patient require the assistance of a helper? No. Patient requires an assistive device such as a software quality specialist. OR s/he takes more than reasonable time as s/he dresses the lower body, OR there is a con cern for safety when s/he dresses the lower body DRESSING - LOWER BODY - SCORE: 6-ABIGAIL TOILETING: TOILETING - STEP 1: Does the patient require the assistance of a person or device, or need extra time with toileting? Yes . TOILETING - STEP 2: Does the patient require the assistance of a helper? Yes. TOILETING - STEP 3: How much assistance does the patient require from the helper? Hands-on assistance from the helper TOILETING - STEP 4: Of the 3 tasks: 1) Adjusting clothing prior to use, 2) Cleansing of perineal area, 3) Adjusting clot jonatan after use; How many tasks does the patient perform WITHOUT assistance of the helper? Three tasks with steadying assistance from the helper TOILETING - SCORE: 4-MIN BLADDER MANAGEMENT: BLADDER MANAGEMENT - STEP 1: Does the patient control the bladder completely and intentionally without equipment or devices or med ications, and is always continent? No. BLADDER MANAGEMENT - STEP 2: Does the patient require the assistance of a helper? No, patient requires and independently uses an a ssistive device, such as a urinal, bedpan, bedside commode, catheter, absorbent pad, or collecting de vice BLADDER MANAGEMENT - SCORE: 6-ABIGAIL BLADDER MANAGEMENT - FREQUENCY OF ACCIDENTS: BLADDER MANAGEMENT(FA) - STEP 1: How many accidents has the patient had during the current shift? 0 BOWEL MANAGEMENT: Activity did not occur on this shift BOWEL MANAGEMENT - SCORE: 7-IND BOWEL MANAGEMENT - FREQUENCY OF ACCIDENTS: BOWEL MANAGEMENT(FA) - STEP 1: How many accidents has the patient had during the current shift? 0 TRANSFERS: BED, CHAIR, WHEELCHAIR: TRANSFERS: BED, CHAIR, WHEELCHAIR - STEP 1: Does the patient require assistance of a person or device, or need extra time with bed, chair, or whe elchair transfers? Yes. TRANSFERS: BED, CHAIR, WHEELCHAIR - STEP 2: Does the patient require the assistance of a helper? Yes. TRANSFERS: BED, CHAIR, WHEELCHAIR - STEP 3: How much assistance does the patient require from the helper? Lifting of the legs TRANSFERS: BED, CHAIR, WHEELCHAIR - STEP 4: How many legs does the patient require the helper to lift? one leg TRANSFERS: BED, CHAIR, WHEELCHAIR - SCORE: 4-MIN TRANSFERS: TOILET: TRANSFERS: TOILET - STEP 1: Does the patient require the assistance of a person or device, or need extra time with toilet transfe rs? Yes. TRANSFERS: TOILET - STEP 2: Does the patient require the assistance of a helper? Yes. TRANSFERS: TOILET - STEP 3: How much assistance does the patient require from the helper? Patient performs half or more of the tr ansferring tasks TRANSFERS: TOILET - STEP 4: Does the patient need only incidental help such as contact guard or steadying during toilet transfer? Yes. TRANSFERS: TOILET - SCORE: 4-MIN TRANSFERS: SHOWER: Activity did not occur on this shift TRANSFERS: SHOWER - SCORE: 0-UNK TRANSFERS: TUB: Activity did not occur on this shift TRANSFERS: TUB - SCORE: 0-UNK LOCOMOTION: WALK: Activity did not occur on this shift LOCOMOTION: WALK - SCORE: 0-UNK LOCOMOTION: WHEELCHAIR: LOCOMOTION: WHEELCHAIR - STEP 1: Does the patient need help to go 150 feet in a wheelchair? Yes. LOCOMOTION: WHEELCHAIR - STEP 2: How much assistance does the patient need from the helper? Only supervision, cuing, or coaxing LOCOMOTION: WHEELCHAIR - SCORE: 5-SUP COMPREHENSION: COMPREHENSION: TYPE: Both COMPREHENSION - STEP 1: Does the patient require help from a person or device, or need extra time to understand complex and a bstract ideas (such as current events, finances, discharge planning, medical issues, relationships, e tc)? No. COMPREHENSION - STEP 2: Does the patient need extra time, require an assistive device (such as glasses for visual comprehensi on or a hearing aid for auditory comprehension) or does s/he have mild difficulty understanding compl ex and abstract information? No. COMPREHENSION - SCORE: 7-IND EXPRESSION EXPRESSION: TYPE: Both EXPRESSION - STEP 1: Does the patient require help from a person or device, or need extra time expressing complex and abst ract ideas (such as current events, finances, discharge planning, medical issues, relationships, etc) ? No. EXPRESSION - STEP 2: Does the patient need extra time, require an assistive device (such as augmentive communication syste m or a communication board), OR does s/he have mild difficulty expressing complex and abstract ideas (including mild dysarthria or mild word-find problems)? Yes. EXPRESSION - SCORE: 6-ABIGAIL SOCIAL INTERACTION: SOCIAL INTERACTION - STEP 1: Does the patient require a helper to interact with others in social and therapeutic situations? No. SOCIAL INTERACTION - STEP 2: Does the patient need extra time in social situations, OR does s/he interact with staff, other patien ts, and family members ONLY in structured environments, OR does s/he require medication for social in teraction? Yes, patient needs extra time SOCIAL INTERACTION - SCORE: 6-ABIGAIL PROBLEM SOLVING: PROBLEM SOLVING - STEP 1: Does the patient need help from a person or device, or need extra time to solve complex problems such as managing a checking account or confronting interpersonal problems? No. PROBLEM SOLVING - STEP 2: Does the patient require extra time to make decisions or solve problems, OR does s/he have slight dif ficulty reading, initiating, or self-correcting in unfamiliar situations? Yes, patient needs extra ti me. PROBLEM SOLVING - SCORE: 6-ABIGAIL MEMORY: MEMORY - STEP 1: Does the patient need help from a person or device, or need extra time to remember frequently encount ered people, daily routines, and executing requests? No. MEMORY - STEP 2: Does the patient have slight difficulty recognizing frequently encountered people, daily routines, or executing requests without the need for repetition or using self-initiated or environmental cues to remember? Yes. MEMORY - SCORE: 6-ABIGAIL SIGNATURE PANEL: The following modified sections: Eating - Score, Grooming - Score, Bathing - Score, Dressing - Upper Body - Score, Dressing - Lower Body - Score, Toileting - Score, Bladder Management - Score, Bowel Man agement - Score, Transfers: Bed, Chair, Wheelchair - Score, Transfers: Toilet - Score, Transfers: Vicki wer - Score, Transfers: Tub - Score, Locomotion: Walk - Score, Locomotion: Wheelchair - Score, Compre hension - Score, Expression - Score, Social Interaction - Score, Problem Solving - Score, Memory - Sc ore were [electronically] signed by Sophie Kaiser C.N.A. on WedJan 29 2019 13:59:09 T-0500 (Centra l Daylight Time)
[2019-01-29] MEDS: ATORVASTATIN 10 MG TAB PO SCH (20:17)
[2019-01-29] MEDS: NYSTATIN PWDR 100000 UNIT/GM TOP SCH (20:17)
[2019-01-29] MEDS: AMLODIPINE 5 MG TAB PO SCH (20:19)
[2019-01-29] MEDS ORDERED: INSULIN -REGULAR HUMAN 50 UNIT/0.5 ML ML ONE (21:35)
--- NOTE | 2019-01-30 01:26 | FAST ---
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 Lamont Mendez M.D. ADMISSION DIAGNOSIS: - Orthopaedic Disorders 08 - Unilateral Hip Fracture (08.11) LEFT HIP INTERTROCHANTERIC FRACTURE. EATING: Activity did not occur on this shift EATING - SCORE: 0-UNK GROOMING: Oral care Wash, rinse, and dry hands GROOMING - STEP 1: Does the patient require the assistance of a person or device, or need extra time when grooming? Yes. GROOMING - STEP 2: Does the patient require the assistance of a helper? Yes. GROOMING - STEP 3: How much assistance does the patient require from the helper? Only prior equipment preparation/set up from the helper GROOMING - SCORE: 5-SUP BATHING: Activity did not occur on this shift BATHING - SCORE: 0-UNK DRESSING - UPPER BODY: Patient is not dressing in public clothing ARTICLES SCORE Total number of steps: 0 DRESSING - UPPER BODY - SCORE: 0-UNK DRESSING - LOWER BODY: Patient is not dressing in public clothing ARTICLES SCORE Total number of steps: 0 DRESSING - LOWER BODY - SCORE: 0-UNK TOILETING: TOILETING - STEP 1: Does the patient require the assistance of a person or device, or need extra time with toileting? Yes . TOILETING - STEP 2: Does the patient require the assistance of a helper? Yes. TOILETING - STEP 3: How much assistance does the patient require from the helper? Hands-on assistance from the helper TOILETING - STEP 4: Of the 3 tasks: 1) Adjusting clothing prior to use, 2) Cleansing of perineal area, 3) Adjusting clot jonatan after use; How many tasks does the patient perform WITHOUT assistance of the helper? Two tasks TOILETING - SCORE: 3-MOD BLADDER MANAGEMENT: BLADDER MANAGEMENT - STEP 1: Does the patient control the bladder completely and intentionally without equipment or devices or med ications, and is always continent? No. BLADDER MANAGEMENT - STEP 2: Does the patient require the assistance of a helper? No, patient only requires extra time BLADDER MANAGEMENT - SCORE: 6-ABIGAIL BOWEL MANAGEMENT: BOWEL MANAGEMENT - STEP 1: Does the patient control bowels completely and intentionally without equipment devices or medications AND is always continent? No. BOWEL MANAGEMENT - STEP 2: Does the patient require the assistance of a helper? No, patient requires medication for control such as stool softeners, suppositories, laxatives, enemas, or OTC medications BOWEL MANAGEMENT - SCORE: 6-ABIGAIL TRANSFERS: BED, CHAIR, WHEELCHAIR: TRANSFERS: BED, CHAIR, WHEELCHAIR - STEP 1: Does the patient require assistance of a person or device, or need extra time with bed, chair, or whe elchair transfers? Yes. TRANSFERS: BED, CHAIR, WHEELCHAIR - STEP 2: Does the patient require the assistance of a helper? Yes. TRANSFERS: BED, CHAIR, WHEELCHAIR - STEP 3: How much assistance does the patient require from the helper? Lifting of the legs TRANSFERS: BED, CHAIR, WHEELCHAIR - STEP 4: How many legs does the patient require the helper to lift? both legs TRANSFERS: BED, CHAIR, WHEELCHAIR - SCORE: 3-MOD TRANSFERS: TOILET: TRANSFERS: TOILET - STEP 1: Does the patient require the assistance of a person or device, or need extra time with toilet transfe rs? Yes. TRANSFERS: TOILET - STEP 2: Does the patient require the assistance of a helper? Yes. TRANSFERS: TOILET - STEP 3: How much assistance does the patient require from the helper? Only supervision, cuing, coaxing, OR he lp to set out transfer equipment or to lock brakes and/or lift foot rests TRANSFERS: TOILET - SCORE: 5-SUP TRANSFERS: SHOWER: Activity did not occur on this shift TRANSFERS: SHOWER - SCORE: 0-UNK TRANSFERS: TUB: Activity did not occur on this shift TRANSFERS: TUB - SCORE: 0-UNK LOCOMOTION: WALK: Activity did not occur on this shift LOCOMOTION: WALK - SCORE: 0-UNK LOCOMOTION: WHEELCHAIR: Activity did not occur on this shift LOCOMOTION: WHEELCHAIR - SCORE: 0-UNK COMPREHENSION: COMPREHENSION: TYPE: Both COMPREHENSION - STEP 1: Does the patient require help from a person or device, or need extra time to understand complex and a bstract ideas (such as current events, finances, discharge planning, medical issues, relationships, e tc)? Yes. COMPREHENSION - STEP 2: Does the patient require help to understand questions or statements about basic needs or ideas (such as hunger, thirst, sleep, safety, daily schedule, room location, or discomfort) half or more of the t yessica? No. COMPREHENSION - STEP 3: How often does the patient need help to understand directions and conversation about basic needs? Les s than 10% of the time COMPREHENSION - SCORE: 5-SUP EXPRESSION EXPRESSION: TYPE: Both EXPRESSION - STEP 1: Does the patient require help from a person or device, or need extra time expressing complex and abst ract ideas (such as current events, finances, discharge planning, medical issues, relationships, etc) ? No. EXPRESSION - STEP 2: Does the patient need extra time, require an assistive device (such as augmentive communication syste m or a communication board), OR does s/he have mild difficulty expressing complex and abstract ideas (including mild dysarthria or mild word-find problems)? Yes. EXPRESSION - SCORE: 6-ABIGAIL SOCIAL INTERACTION: SOCIAL INTERACTION - STEP 1: Does the patient require a helper to interact with others in social and therapeutic situations? No. SOCIAL INTERACTION - STEP 2: Does the patient need extra time in social situations, OR does s/he interact with staff, other patien ts, and family members ONLY in structured environments, OR does s/he require medication for social in teraction? Yes, patient needs extra time SOCIAL INTERACTION - SCORE: 6-ABIGAIL PROBLEM SOLVING: PROBLEM SOLVING - STEP 1: Does the patient need help from a person or device, or need extra time to solve complex problems such as managing a checking account or confronting interpersonal problems? No. PROBLEM SOLVING - STEP 2: Does the patient require extra time to make decisions or solve problems, OR does s/he have slight dif ficulty reading, initiating, or self-correcting in unfamiliar situations? Yes, patient needs extra ti me. PROBLEM SOLVING - SCORE: 6-ABIGAIL MEMORY: MEMORY - STEP 1: Does the patient need help from a person or device, or need extra time to remember frequently encount ered people, daily routines, and executing requests? No. MEMORY - STEP 2: Does the patient have slight difficulty recognizing frequently encountered people, daily routines, or executing requests without the need for repetition or using self-initiated or environmental cues to remember? Yes. MEMORY - SCORE: 6-ABIGAIL SIGNATURE PANEL: The following modified sections: Eating - Score, Grooming - Score, Dressing - Upper Body - Score, Darian ssing - Lower Body - Score, Toileting - Score, Bladder Management - Score, Bowel Management - Score, Transfers: Bed, Chair, Wheelchair - Score, Transfers: Toilet - Score, Transfers: Shower - Score, Puentes sfers: Tub - Score, Locomotion: Walk - Score, Locomotion: Wheelchair - Score, Comprehension - Score, Expression - Score, Social Interaction - Score, Problem Solving - Score, Memory - Score were [electro nically] signed by Tomasa Yo CNA on WedJan 30 2019 01:24:47 GMT-0500 (Central Daylight Time)
[2019-01-30] MEDS: ENOXAPARIN 40 MG/0.4 ML SQ SCH (07:01)
[2019-01-30] MEDS: INSULIN -REGULAR HUMAN 50 UNIT/0.5 ML ML SQ SCH ×4 (07:30→21:14)
[2019-01-30] MEDS: NYSTATIN PWDR 100000 UNIT/GM TOP SCH ×2 (08:00→20:03)
[2019-01-30] MEDS: DOCUSATE NA 100 MG CAP PO SCH ×2 (08:00→20:00)
[2019-01-30] MEDS: NICOTINE 21 MG/PAT TD SCH (08:19)
[2019-01-30] MEDS: FERROUS SULFATE 325 MG TAB PO SCH (08:22)
[2019-01-30] MEDS: FE SULF/FA/VIT B COMP & C TAB PO SCH (08:23)
[2019-01-30] MEDS: METFORMIN ER 500 MG TAB PO SCH ×2 (08:23→16:37)
[2019-01-30] MEDS: GABAPENTIN 100 MG CAP PO SCH ×2 (08:25→20:03)
[2019-01-30] MEDS: GLIMEPIRIDE 2 MG TABLET PO SCH ×2 (08:25→16:37)
[2019-01-30] MEDS: NEBIVOLOL HCL 20 MG TABLET PO SCH (08:25)
[2019-01-30] MEDS: LOSARTAN POTASSIUM 50 MG TABLET PO SCH (08:26)
[2019-01-30] MEDS: PROMOD 30 ML DOSE PO SCH ×2 (08:27→20:02)
--- NOTE | 2019-01-30 13:18 | FAST ---
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 Lamont Mendez M.D. ADMISSION DIAGNOSIS: - Orthopaedic Disorders 08 - Unilateral Hip Fracture (08.11) LEFT HIP INTERTROCHANTERIC FRACTURE. EATING: EATING - STEP 1: Does the patient require the assistance of a person or device, or need extra time when eating? Yes. EATING - STEP 2: Does the patient require the assistance of a helper? No, patient only requires an assistive device, O R s/he takes more than reasonable time to eat, OR there is a safety concern, OR s/he requires modifie d food consistency EATING - SCORE: 6-ABIGAIL GROOMING: Comb/brush hair Oral care Wash, rinse, and dry face Wash, rinse, and dry hands GROOMING - STEP 1: Does the patient require the assistance of a person or device, or need extra time when grooming? Yes. GROOMING - STEP 2: Does the patient require the assistance of a helper? No. The patient only requires an assistive devic e, OR takes more than reasonable time to groom, OR there is a concern for safety as the patient groom s GROOMING - SCORE: 6-ABIGAIL BATHING: Activity did not occur on this shift BATHING - SCORE: 0-UNK DRESSING - UPPER BODY: Activity did not occur on this shift ARTICLES SCORE Total number of steps: 0 DRESSING - UPPER BODY - SCORE: 0-UNK DRESSING - LOWER BODY: Activity did not occur on this shift ARTICLES SCORE Total number of steps: 0 DRESSING - LOWER BODY - SCORE: 0-UNK TOILETING: TOILETING - STEP 1: Does the patient require the assistance of a person or device, or need extra time with toileting? Yes . TOILETING - STEP 2: Does the patient require the assistance of a helper? Yes. TOILETING - STEP 3: How much assistance does the patient require from the helper? Only supervision TOILETING - SCORE: 5-SUP BLADDER MANAGEMENT: BLADDER MANAGEMENT - STEP 1: Does the patient control the bladder completely and intentionally without equipment or devices or med ications, and is always continent? No. BLADDER MANAGEMENT - STEP 2: Does the patient require the assistance of a helper? No, patient requires and independently uses an a ssistive device, such as a urinal, bedpan, bedside commode, catheter, absorbent pad, or collecting de vice BLADDER MANAGEMENT - SCORE: 6-ABIGAIL BOWEL MANAGEMENT: Activity did not occur on this shift BOWEL MANAGEMENT - SCORE: 7-IND TRANSFERS: BED, CHAIR, WHEELCHAIR: TRANSFERS: BED, CHAIR, WHEELCHAIR - STEP 1: Does the patient require assistance of a person or device, or need extra time with bed, chair, or whe elchair transfers? Yes. TRANSFERS: BED, CHAIR, WHEELCHAIR - STEP 2: Does the patient require the assistance of a helper? Yes. TRANSFERS: BED, CHAIR, WHEELCHAIR - STEP 3: How much assistance does the patient require from the helper? Steadying/guiding assistance TRANSFERS: BED, CHAIR, WHEELCHAIR - SCORE: 4-MIN TRANSFERS: TOILET: TRANSFERS: TOILET - STEP 1: Does the patient require the assistance of a person or device, or need extra time with toilet transfe rs? Yes. TRANSFERS: TOILET - STEP 2: Does the patient require the assistance of a helper? Yes. TRANSFERS: TOILET - STEP 3: How much assistance does the patient require from the helper? Patient performs half or more of the tr ansferring tasks TRANSFERS: TOILET - STEP 4: Does the patient need only incidental help such as contact guard or steadying during toilet transfer? Yes. TRANSFERS: TOILET - SCORE: 4-MIN TRANSFERS: SHOWER: Activity did not occur on this shift TRANSFERS: SHOWER - SCORE: 0-UNK TRANSFERS: TUB: Activity did not occur on this shift TRANSFERS: TUB - SCORE: 0-UNK LOCOMOTION: WALK: Activity did not occur on this shift LOCOMOTION: WALK - SCORE: 0-UNK LOCOMOTION: WHEELCHAIR: Activity did not occur on this shift LOCOMOTION: WHEELCHAIR - SCORE: 0-UNK COMPREHENSION: COMPREHENSION: TYPE: Both COMPREHENSION - STEP 1: Does the patient require help from a person or device, or need extra time to understand complex and a bstract ideas (such as current events, finances, discharge planning, medical issues, relationships, e tc)? No. COMPREHENSION - STEP 2: Does the patient need extra time, require an assistive device (such as glasses for visual comprehensi on or a hearing aid for auditory comprehension) or does s/he have mild difficulty understanding compl ex and abstract information? Yes. COMPREHENSION - SCORE: 6-ABIGAIL EXPRESSION EXPRESSION: TYPE: Both EXPRESSION - STEP 1: Does the patient require help from a person or device, or need extra time expressing complex and abst ract ideas (such as current events, finances, discharge planning, medical issues, relationships, etc) ? No. EXPRESSION - STEP 2: Does the patient need extra time, require an assistive device (such as augmentive communication syste m or a communication board), OR does s/he have mild difficulty expressing complex and abstract ideas (including mild dysarthria or mild word-find problems)? Yes. EXPRESSION - SCORE: 6-ABIGAIL SOCIAL INTERACTION: SOCIAL INTERACTION - STEP 1: Does the patient require a helper to interact with others in social and therapeutic situations? No. SOCIAL INTERACTION - STEP 2: Does the patient need extra time in social situations, OR does s/he interact with staff, other patien ts, and family members ONLY in structured environments, OR does s/he require medication for social in teraction? Yes, patient needs extra time SOCIAL INTERACTION - SCORE: 6-ABIGAIL PROBLEM SOLVING: PROBLEM SOLVING - STEP 1: Does the patient need help from a person or device, or need extra time to solve complex problems such as managing a checking account or confronting interpersonal problems? Yes. PROBLEM SOLVING - STEP 2: Does the patient solve basic routine problems half or more of the time? Yes. PROBLEM SOLVING - STEP 3: How often does the patient need help to solve basic routine problems? Less than 10% of the time PROBLEM SOLVING - SCORE: 5-SUP MEMORY: MEMORY - STEP 1: Does the patient need help from a person or device, or need extra time to remember frequently encount ered people, daily routines, and executing requests? Yes. MEMORY - STEP 2: How often does the patient need help to remember frequently encountered people, daily routines, and e xecuting requests? Less than 10% of the time MEMORY - SCORE: 5-SUP SIGNATURE PANEL: The following modified sections: Eating - Score, Grooming - Score, Bathing - Score, Dressing - Upper Body - Score, Dressing - Lower Body - Score, Toileting - Score, Bladder Management - Score, Bowel Man agement - Score, Transfers: Bed, Chair, Wheelchair - Score, Transfers: Toilet - Score, Transfers: Vicki wer - Score, Transfers: Tub - Score, Locomotion: Walk - Score, Locomotion: Wheelchair - Score, Compre hension - Score, Expression - Score, Social Interaction - Score, Problem Solving - Score, Memory - Sc ore were [electronically] signed by Roque Raphael on WedJan 30 2019 13:17:54 GMT-0500 (Central Daylight Time)
--- NOTE | 2019-01-30 16:31 | FAST ---
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 Lamont Mendez M.D. ADMISSION DIAGNOSIS: - Orthopaedic Disorders 08 - Unilateral Hip Fracture (08.11) LEFT HIP INTERTROCHANTERIC FRACTURE. EATING: Activity did not occur on this shift EATING - SCORE: 0-UNK GROOMING: Activity did not occur on this shift GROOMING - SCORE: 0-UNK BATHING: Activity did not occur on this shift BATHING - SCORE: 0-UNK DRESSING - UPPER BODY: Activity did not occur on this shift Patient is not dressing in public clothing ARTICLES SCORE Total number of steps: 0 DRESSING - UPPER BODY - SCORE: 0-UNK DRESSING - LOWER BODY: Activity did not occur on this shift Patient is not dressing in public clothing ARTICLES SCORE Total number of steps: 0 DRESSING - LOWER BODY - SCORE: 0-UNK TOILETING: Activity did not occur on this shift TOILETING - SCORE: 0-UNK BLADDER MANAGEMENT: Activity did not occur on this shift BLADDER MANAGEMENT - SCORE: 7-IND BOWEL MANAGEMENT: Activity did not occur on this shift BOWEL MANAGEMENT - SCORE: 7-IND TRANSFERS: BED, CHAIR, WHEELCHAIR: TRANSFERS: BED, CHAIR, WHEELCHAIR - STEP 1: Does the patient require assistance of a person or device, or need extra time with bed, chair, or whe elchair transfers? Yes. TRANSFERS: BED, CHAIR, WHEELCHAIR - STEP 2: Does the patient require the assistance of a helper? Yes. TRANSFERS: BED, CHAIR, WHEELCHAIR - STEP 3: How much assistance does the patient require from the helper? Only supervision TRANSFERS: BED, CHAIR, WHEELCHAIR - SCORE: 5-SUP TRANSFERS: TOILET: Activity did not occur on this shift TRANSFERS: TOILET - SCORE: 0-UNK TRANSFERS: SHOWER: Activity did not occur on this shift TRANSFERS: SHOWER - SCORE: 0-UNK TRANSFERS: TUB: Activity did not occur on this shift TRANSFERS: TUB - SCORE: 0-UNK LOCOMOTION: WALK: LOCOMOTION: WALK - STEP 1: Does the patient need help from a person or device, or need extra time to walk 150 feet? Yes. LOCOMOTION: WALK - STEP 2: How much assistance does the patient require to walk a minimum of 150 feet? Only supervision, cuing, or coaxing LOCOMOTION: WALK - SCORE: 5-SUP LOCOMOTION: WHEELCHAIR: LOCOMOTION: WHEELCHAIR - STEP 1: Does the patient need help to go 150 feet in a wheelchair? Yes. LOCOMOTION: WHEELCHAIR - STEP 2: How much assistance does the patient need from the helper? Only supervision, cuing, or coaxing LOCOMOTION: WHEELCHAIR - SCORE: 5-SUP LOCOMOTION: STAIRS: Activity did not occur on this shift LOCOMOTION: STAIRS - SCORE: 0-UNK COMPREHENSION: COMPREHENSION - SCORE: 0-UNK EXPRESSION EXPRESSION - SCORE: 0-UNK SOCIAL INTERACTION: SOCIAL INTERACTION - SCORE: 0-UNK PROBLEM SOLVING: PROBLEM SOLVING - SCORE: 0-UNK MEMORY: MEMORY - SCORE: 0-UNK SIGNATURE PANEL: The following modified sections: Transfers: Bed, Chair, Wheelchair - Score, Transfers: Toilet - Score , Locomotion: Walk - Score, Locomotion: Wheelchair - Score, Locomotion: Stairs - Score were [steve lawrence] signed by Wendy Curry PTA on WedJan 30 2019 16:29:53 T-0500 (Central Daylight Time)
--- NOTE | 2019-01-30 17:28 | R.PN ---
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 Pt denied any depression. Glucose 108 to 170. Ambulated 240' with contact guard assistance using a rolling walker. Up and down 15 steps with standb y assistance. Self-propelled wheelchair 250' with standby assistance. VITAL SIGNS Temperature: 97.8 F SBP/DBP: 137-184/63-74 Pulse: 65-69 Resp: 16 MEDICATION ALLERGIES: No Known Drug Allergies (NKDA) ENVIRONMENTAL ALLERGIES: None Known - Substance Allergies None Known - Other Allergies None Known NURSING: - Shower allowing shower - Lab Results blood Sugar Check ACHS - Skin care per protocol PRECAUTIONS: - Posterior Hip Precaution No adduction across midline No external rotation No hip flexion >90 degrees No internal rotation No wheel chair propulsion - Weight Bearing Precaution TTWB left LE ACTIVITIES OOB only with supervision THERAPIES: - Occupational Therapy Evaluate and Treat. - Physical Therapy Evaluate and Treat. PHYSICAL EXAM - Gen Alert and awake Lying in bed No apparent distress Oriented to: person, time, and place - Skin No breakdown No abnormalities - Eyes No abnormalities - ENMT No abnormalities - Neck No abnormalities - CVS RRR - Chest Clear - Abd +bowel sounds - GI Soft Deferred - No abnormalities - Ext Trace edema in left leg and foot. - MSK 4+/5 weakness in left lower extremity. - Neuro 4/5 strength left lower extremity. - Psych No abnormalities ASSESSMENT: Pt. is a 78 yo Right-handed white female.Her impairment category is Orthopaedic Disorders 08 - Unila teral Hip Fracture (06.25).Pre-morbidly, Pt. was independent/mod-I in Transfers Control, Communicatio n, Social Cognition, Self-Care, Locomotion, and Sphincter Control; and she had good Sphincter Control .Currently, she has deficits of Safety Awareness, Transfers Control, Balance, Locomotion, Endurance, and Self-Care.Pt. is now referred to [facility] for acute in-patient rehabilit ation in order to maximize patient's functional independence in activities of daily living, strength, ROM, and mobility.- Rehab Goal Patient has realistic goal of being discharged at assistance level 6-Raquel to reside at Home with Fam susy/Relatives. MDM/PLAN: - Physical Therapy Decreased range of motion - to improve, our physical therapists will perform initial evaluation of p t's status upon admission and devise an individualized program for increasing patient's Range of Lon on. Gait dysfunction - to improve, our physical therapists will perform initial evaluation of pt's statu s upon admission and devise an individualized program for Gait Training, and Wheel Chair mobility Inability to transfer - to improve, our physical therapists will perform initial evaluation of pt's status upon admission and devise an individualized program for Bed mobility Need for home safety evaluation - to improve, our physical therapists will perform initial evaluatio n of pt's status upon admission and devise an individualized program for Home Evaluation Need in caregiver upon discharge - to improve, our physical therapists will perform initial evaluati on of pt's status upon admission and devise an individualized program for Caregiver Training New precaution - to improve, our physical therapists will perform initial evaluation of pt's status upon admission and devise an individualized program for Patient precaution education Edema - to improve, our physical therapists will perform initial evaluation of pt's status upon admi ssion and devise an individualized program for Elevation Training, and Lymphedema Therapy Poor balance - to improve, our physical therapists will perform initial evaluation of pt's status up on admission and devise an individualized program for Balance Training Poor endurance - to improve, our physical therapists will perform initial evaluation of pt's status upon admission and devise an individualized program for Endurance Training Weakness - to improve, our physical therapists will perform initial evaluation of pt's status upon a dmission and devise an individualized program for Aquatic Therapy, Neuromuscular Reeducation, and Str engthening Achieving independence - to improve, our physical therapists will perform initial evaluation of pt's status upon admission and devise an individualized program for Community Reintegration Activities - Occupational Therapy ADL deficits - to improve, our occupation therapists will perform initial evaluation of pt's status upon admission and devise an individualized program for Bathing, Bed mobility, Community Reintegratio n, Cooking, Dressing, Eating, Fine Motor Skills, Grooming, Homemaking, Kitchen Mobility, Laundry, Pat ient Education, Safety Awareness, Splinting - Positioning, Transfers(Toilet, Tub, Shower), and Wheel Chair Management Need for resident care technician - to improve, our occupation therapists will perform initial evaluation of pt's status upon admission and devise an individualized program for Caregiver Training Weakness - to improve, our occupation therapists will perform initial evaluation of pt's status upon admission and devise an individualized program for Aquatic Therapy, Balance, Endurance, UE ROM, and UE strengthening - Anterior Hip Precaution No abduction No active extension No adduction across midline No external rotation No hip flexion >90 degrees No internal rotation - Diet - Liquid Texture Continue Regular - Tube Feed Continue N/A - Diet Type Continue Regular - Posterior Hip Precaution No adduction across midline No external rotation No hip flexion >90 degrees No internal rotation No wheel chair propulsion - Lab Results blood Sugar Check ACHS - Weight Bearing Precaution TTWB left LE - Skin care per protocol - Diet - Solid Texture Continue Regular - Shower allowing shower FUNCTIONAL STATUS: UPDATED AT WEEKLY TEAM CONFERENCE - Bladder Same accident frequency: 7-Ind - No accidents in the past 7 days - Bowel Same accident frequency: 7-Ind - No accidents in the past 7 days - Walking Same score based on distance walked: 2(50-149ft) - Wheelchair Same score based on distance traveled: 0(N/A) FUNCTIONAL STATUS: - Self-Care A. Eating Raquel B. Grooming sup C. Bathing sup D. Dressing - Upper sup E. Dressing - Lower Dep F. Toileting maxA - Sphincter Control G: Bladder control Ind H: Bowel control Ind - Transfers Control I. Bed/Chair/Wheelchair CGA J. Toilet CGA K. Tub/Shower ADNO - Locomotion L. Walk/Wheelchair (C) Salazar L. Walk/Wheelchair (W) Salazar M. Stairs ADNO - Communication N. Comprehension (B) Ind O. Expression (B) Ind - Social Cognition P. Social Interaction Ind Q. Problem Solving Ind R. Memory Ind - Endurance Fair - Balance Fair - Safety Awareness Fair CURRENT FUNC. DEFICITS: Safety Awareness, Transfers Control, Balance, Locomotion, Endurance, and Self-Care SIGNATURE PANEL: (CDT)
[2019-01-30] MEDS ORDERED: CALCIUM CARBONATE CHEW 500MG TAB PO PRN (19:31)
[2019-01-30] MEDS ORDERED: MAGNES/ALUMIN/SIMET 30ML UCUP PO PRN (19:36)
[2019-01-30] MEDS: ATORVASTATIN 10 MG TAB PO SCH (20:02)
[2019-01-30] MEDS: AMLODIPINE 5 MG TAB PO SCH (20:02)
[2019-01-30] MEDS: TRAMADOL HCL 50 MG TAB PO PRN (20:04)
--- NOTE | 2019-01-31 02:52 | FAST ---
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 Lamont Mendez M.D. ADMISSION DIAGNOSIS: - Orthopaedic Disorders 08 - Unilateral Hip Fracture (08.11) LEFT HIP INTERTROCHANTERIC FRACTURE. EATING: Activity did not occur on this shift EATING - SCORE: 0-UNK GROOMING: Activity did not occur on this shift GROOMING - SCORE: 0-UNK BATHING: Activity did not occur on this shift BATHING - SCORE: 0-UNK DRESSING - UPPER BODY: Patient is not dressing in public clothing ARTICLES SCORE Total number of steps: 0 DRESSING - UPPER BODY - SCORE: 0-UNK DRESSING - LOWER BODY: Patient is not dressing in public clothing ARTICLES SCORE Total number of steps: 0 DRESSING - LOWER BODY - SCORE: 0-UNK TOILETING: TOILETING - STEP 1: Does the patient require the assistance of a person or device, or need extra time with toileting? Yes . TOILETING - STEP 2: Does the patient require the assistance of a helper? Yes. TOILETING - STEP 3: How much assistance does the patient require from the helper? Hands-on assistance from the helper TOILETING - STEP 4: Of the 3 tasks: 1) Adjusting clothing prior to use, 2) Cleansing of perineal area, 3) Adjusting clot jonatan after use; How many tasks does the patient perform WITHOUT assistance of the helper? Three tasks with steadying assistance from the helper TOILETING - SCORE: 4-MIN BLADDER MANAGEMENT: BLADDER MANAGEMENT - STEP 1: Does the patient control the bladder completely and intentionally without equipment or devices or med ications, and is always continent? Yes. BLADDER MANAGEMENT - SCORE: 7-IND BOWEL MANAGEMENT: Activity did not occur on this shift BOWEL MANAGEMENT - SCORE: 7-IND TRANSFERS: BED, CHAIR, WHEELCHAIR: TRANSFERS: BED, CHAIR, WHEELCHAIR - STEP 1: Does the patient require assistance of a person or device, or need extra time with bed, chair, or whe elchair transfers? Yes. TRANSFERS: BED, CHAIR, WHEELCHAIR - STEP 2: Does the patient require the assistance of a helper? Yes. TRANSFERS: BED, CHAIR, WHEELCHAIR - STEP 3: How much assistance does the patient require from the helper? Lifting of the legs TRANSFERS: BED, CHAIR, WHEELCHAIR - STEP 4: How many legs does the patient require the helper to lift? both legs TRANSFERS: BED, CHAIR, WHEELCHAIR - SCORE: 3-MOD TRANSFERS: TOILET: TRANSFERS: TOILET - STEP 1: Does the patient require the assistance of a person or device, or need extra time with toilet transfe rs? Yes. TRANSFERS: TOILET - STEP 2: Does the patient require the assistance of a helper? Yes. TRANSFERS: TOILET - STEP 3: How much assistance does the patient require from the helper? Patient performs half or more of the tr ansferring tasks TRANSFERS: TOILET - STEP 4: Does the patient need only incidental help such as contact guard or steadying during toilet transfer? Yes. TRANSFERS: TOILET - SCORE: 4-MIN TRANSFERS: SHOWER: Activity did not occur on this shift TRANSFERS: SHOWER - SCORE: 0-UNK TRANSFERS: TUB: Activity did not occur on this shift TRANSFERS: TUB - SCORE: 0-UNK LOCOMOTION: WALK: Activity did not occur on this shift LOCOMOTION: WALK - SCORE: 0-UNK LOCOMOTION: WHEELCHAIR: Activity did not occur on this shift LOCOMOTION: WHEELCHAIR - SCORE: 0-UNK COMPREHENSION: COMPREHENSION: TYPE: Both COMPREHENSION - STEP 1: Does the patient require help from a person or device, or need extra time to understand complex and a bstract ideas (such as current events, finances, discharge planning, medical issues, relationships, e tc)? No. COMPREHENSION - STEP 2: Does the patient need extra time, require an assistive device (such as glasses for visual comprehensi on or a hearing aid for auditory comprehension) or does s/he have mild difficulty understanding compl ex and abstract information? Yes. COMPREHENSION - SCORE: 6-ABIGAIL EXPRESSION EXPRESSION: TYPE: Both EXPRESSION - STEP 1: Does the patient require help from a person or device, or need extra time expressing complex and abst ract ideas (such as current events, finances, discharge planning, medical issues, relationships, etc) ? No. EXPRESSION - STEP 2: Does the patient need extra time, require an assistive device (such as augmentive communication syste m or a communication board), OR does s/he have mild difficulty expressing complex and abstract ideas (including mild dysarthria or mild word-find problems)? No. EXPRESSION - SCORE: 7-IND SOCIAL INTERACTION: SOCIAL INTERACTION - STEP 1: Does the patient require a helper to interact with others in social and therapeutic situations? No. SOCIAL INTERACTION - STEP 2: Does the patient need extra time in social situations, OR does s/he interact with staff, other patien ts, and family members ONLY in structured environments, OR does s/he require medication for social in teraction? No. SOCIAL INTERACTION - SCORE: 7-IND PROBLEM SOLVING: PROBLEM SOLVING - STEP 1: Does the patient need help from a person or device, or need extra time to solve complex problems such as managing a checking account or confronting interpersonal problems? No. PROBLEM SOLVING - STEP 2: Does the patient require extra time to make decisions or solve problems, OR does s/he have slight dif ficulty reading, initiating, or self-correcting in unfamiliar situations? No. PROBLEM SOLVING - SCORE: 7-IND MEMORY: MEMORY - STEP 1: Does the patient need help from a person or device, or need extra time to remember frequently encount ered people, daily routines, and executing requests? No. MEMORY - STEP 2: Does the patient have slight difficulty recognizing frequently encountered people, daily routines, or executing requests without the need for repetition or using self-initiated or environmental cues to remember? No. MEMORY - SCORE: 7-IND SIGNATURE PANEL: The following modified sections: Eating - Score, Grooming - Score, Bathing - Score, Dressing - Upper Body - Score, Dressing - Lower Body - Score, Toileting - Score, Bladder Management - Score, Bowel Man agement - Score, Transfers: Bed, Chair, Wheelchair - Score, Transfers: Shower - Score, Transfers: Tub - Score, Locomotion: Walk - Score, Locomotion: Wheelchair - Score, Comprehension - Score, Expression - Score, Social Interaction - Score, Problem Solving - Score, Memory - Score, Transfers: Toilet - Sc ore were [electronically] signed by Eva Zhang CNA on WedJan 31 2019 02:52:05 T-0500 ([facility] Time)
[2019-01-31] MEDS: INSULIN -REGULAR HUMAN 50 UNIT/0.5 ML ML SQ SCH ×4 (07:03→20:17)
[2019-01-31] MEDS: ENOXAPARIN 40 MG/0.4 ML SQ SCH (07:09)
[2019-01-31] MEDS: NICOTINE 21 MG/PAT TD SCH (07:10)
[2019-01-31] MEDS: NYSTATIN PWDR 100000 UNIT/GM TOP SCH ×2 (07:12→19:14)
[2019-01-31] MEDS: NEBIVOLOL HCL 20 MG TABLET PO SCH (07:55)
[2019-01-31] MEDS: GLIMEPIRIDE 2 MG TABLET PO SCH ×2 (07:55→16:24)
[2019-01-31] MEDS: GABAPENTIN 100 MG CAP PO SCH ×2 (07:55→19:14)
[2019-01-31] MEDS: METFORMIN ER 500 MG TAB PO SCH ×2 (07:56→16:24)
[2019-01-31] MEDS: FE SULF/FA/VIT B COMP & C TAB PO SCH (07:56)
[2019-01-31] MEDS: LOSARTAN POTASSIUM 50 MG TABLET PO SCH (07:56)
[2019-01-31] MEDS: FERROUS SULFATE 325 MG TAB PO SCH (07:56)
[2019-01-31] MEDS: PROMOD 30 ML DOSE PO SCH ×2 (07:56→19:13)
[2019-01-31] MEDS: DOCUSATE NA 100 MG CAP PO SCH ×2 (08:00→19:13)
--- NOTE | 2019-01-31 14:08 | FAST ---
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 Lamont Mendez M.D. ADMISSION DIAGNOSIS: - Orthopaedic Disorders 08 - Unilateral Hip Fracture (08.11) LEFT HIP INTERTROCHANTERIC FRACTURE. EATING: EATING - STEP 1: Does the patient require the assistance of a person or device, or need extra time when eating? Yes. EATING - STEP 2: Does the patient require the assistance of a helper? No, patient only requires an assistive device, O R s/he takes more than reasonable time to eat, OR there is a safety concern, OR s/he requires modifie d food consistency EATING - SCORE: 6-ABIGAIL GROOMING: Comb/brush hair Oral care GROOMING - STEP 1: Does the patient require the assistance of a person or device, or need extra time when grooming? No. GROOMING - SCORE: 7-IND BATHING: Activity did not occur on this shift BATHING - SCORE: 0-UNK DRESSING - UPPER BODY: Activity did not occur on this shift ARTICLES SCORE Total number of steps: 0 DRESSING - UPPER BODY - SCORE: 0-UNK DRESSING - LOWER BODY: Activity did not occur on this shift ARTICLES SCORE Total number of steps: 0 DRESSING - LOWER BODY - SCORE: 0-UNK TOILETING: TOILETING - STEP 1: Does the patient require the assistance of a person or device, or need extra time with toileting? Yes . TOILETING - STEP 2: Does the patient require the assistance of a helper? Yes. TOILETING - STEP 3: How much assistance does the patient require from the helper? Only supervision TOILETING - SCORE: 5-SUP BLADDER MANAGEMENT: BLADDER MANAGEMENT - STEP 1: Does the patient control the bladder completely and intentionally without equipment or devices or med ications, and is always continent? No. BLADDER MANAGEMENT - STEP 2: Does the patient require the assistance of a helper? No, patient requires and independently uses an a ssistive device, such as a urinal, bedpan, bedside commode, catheter, absorbent pad, or collecting de vice BLADDER MANAGEMENT - SCORE: 6-ABIGAIL BOWEL MANAGEMENT: Activity did not occur on this shift BOWEL MANAGEMENT - SCORE: 7-IND TRANSFERS: BED, CHAIR, WHEELCHAIR: TRANSFERS: BED, CHAIR, WHEELCHAIR - STEP 1: Does the patient require assistance of a person or device, or need extra time with bed, chair, or whe elchair transfers? Yes. TRANSFERS: BED, CHAIR, WHEELCHAIR - STEP 2: Does the patient require the assistance of a helper? Yes. TRANSFERS: BED, CHAIR, WHEELCHAIR - STEP 3: How much assistance does the patient require from the helper? Steadying/guiding assistance TRANSFERS: BED, CHAIR, WHEELCHAIR - SCORE: 4-MIN TRANSFERS: TOILET: TRANSFERS: TOILET - STEP 1: Does the patient require the assistance of a person or device, or need extra time with toilet transfe rs? Yes. TRANSFERS: TOILET - STEP 2: Does the patient require the assistance of a helper? Yes. TRANSFERS: TOILET - STEP 3: How much assistance does the patient require from the helper? Only supervision, cuing, coaxing, OR he lp to set out transfer equipment or to lock brakes and/or lift foot rests TRANSFERS: TOILET - SCORE: 5-SUP TRANSFERS: SHOWER: Activity did not occur on this shift TRANSFERS: SHOWER - SCORE: 0-UNK TRANSFERS: TUB: Activity did not occur on this shift TRANSFERS: TUB - SCORE: 0-UNK LOCOMOTION: WALK: Activity did not occur on this shift LOCOMOTION: WALK - SCORE: 0-UNK LOCOMOTION: WHEELCHAIR: Activity did not occur on this shift LOCOMOTION: WHEELCHAIR - SCORE: 0-UNK COMPREHENSION: COMPREHENSION: TYPE: Both COMPREHENSION - STEP 1: Does the patient require help from a person or device, or need extra time to understand complex and a bstract ideas (such as current events, finances, discharge planning, medical issues, relationships, e tc)? No. COMPREHENSION - STEP 2: Does the patient need extra time, require an assistive device (such as glasses for visual comprehensi on or a hearing aid for auditory comprehension) or does s/he have mild difficulty understanding compl ex and abstract information? Yes. COMPREHENSION - SCORE: 6-ABIGAIL EXPRESSION EXPRESSION: TYPE: Both EXPRESSION - STEP 1: Does the patient require help from a person or device, or need extra time expressing complex and abst ract ideas (such as current events, finances, discharge planning, medical issues, relationships, etc) ? No. EXPRESSION - STEP 2: Does the patient need extra time, require an assistive device (such as augmentive communication syste m or a communication board), OR does s/he have mild difficulty expressing complex and abstract ideas (including mild dysarthria or mild word-find problems)? Yes. EXPRESSION - SCORE: 6-ABIGAIL SOCIAL INTERACTION: SOCIAL INTERACTION - STEP 1: Does the patient require a helper to interact with others in social and therapeutic situations? No. SOCIAL INTERACTION - STEP 2: Does the patient need extra time in social situations, OR does s/he interact with staff, other patien ts, and family members ONLY in structured environments, OR does s/he require medication for social in teraction? Yes, patient needs extra time SOCIAL INTERACTION - SCORE: 6-ABIGAIL PROBLEM SOLVING: PROBLEM SOLVING - STEP 1: Does the patient need help from a person or device, or need extra time to solve complex problems such as managing a checking account or confronting interpersonal problems? No. PROBLEM SOLVING - STEP 2: Does the patient require extra time to make decisions or solve problems, OR does s/he have slight dif ficulty reading, initiating, or self-correcting in unfamiliar situations? Yes, patient needs extra ti me. PROBLEM SOLVING - SCORE: 6-ABIGAIL MEMORY: MEMORY - STEP 1: Does the patient need help from a person or device, or need extra time to remember frequently encount ered people, daily routines, and executing requests? No. MEMORY - STEP 2: Does the patient have slight difficulty recognizing frequently encountered people, daily routines, or executing requests without the need for repetition or using self-initiated or environmental cues to remember? Yes. MEMORY - SCORE: 6-ABIGAIL SIGNATURE PANEL: The following modified sections: Eating - Score, Grooming - Score, Bathing - Score, Dressing - Upper Body - Score, Dressing - Lower Body - Score, Toileting - Score, Bladder Management - Score, Bowel Man agement - Score, Transfers: Bed, Chair, Wheelchair - Score, Transfers: Toilet - Score, Transfers: Vicki wer - Score, Transfers: Tub - Score, Locomotion: Walk - Score, Comprehension - Score, Expression - Sc ore, Social Interaction - Score, Problem Solving - Score, Memory - Score, Locomotion: Wheelchair - Sc ore were [electronically] signed by Roque Raphael on WedJan 31 2019 14:06:57 GMT-0500 (Central Daylight Time)
--- NOTE | 2019-01-31 15:35 | FAST ---
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 Lamont Mendez M.D. ADMISSION DIAGNOSIS: - Orthopaedic Disorders 08 - Unilateral Hip Fracture (08.11) LEFT HIP INTERTROCHANTERIC FRACTURE. EATING: Activity did not occur on this shift EATING - SCORE: 0-UNK GROOMING: Activity did not occur on this shift GROOMING - SCORE: 0-UNK BATHING: Activity did not occur on this shift BATHING - SCORE: 0-UNK DRESSING - UPPER BODY: Activity did not occur on this shift Patient is not dressing in public clothing ARTICLES SCORE Total number of steps: 0 DRESSING - UPPER BODY - SCORE: 0-UNK DRESSING - LOWER BODY: Activity did not occur on this shift Patient is not dressing in public clothing ARTICLES SCORE Total number of steps: 0 DRESSING - LOWER BODY - SCORE: 0-UNK TOILETING: Activity did not occur on this shift TOILETING - SCORE: 0-UNK BLADDER MANAGEMENT: Activity did not occur on this shift BLADDER MANAGEMENT - SCORE: 7-IND BOWEL MANAGEMENT: Activity did not occur on this shift BOWEL MANAGEMENT - SCORE: 7-IND TRANSFERS: BED, CHAIR, WHEELCHAIR: TRANSFERS: BED, CHAIR, WHEELCHAIR - STEP 1: Does the patient require assistance of a person or device, or need extra time with bed, chair, or whe elchair transfers? Yes. TRANSFERS: BED, CHAIR, WHEELCHAIR - STEP 2: Does the patient require the assistance of a helper? No. Patient only requires an assistive device fo r bed, chair, wheelchair transfers such as a sliding board, grab bar, or brace, OR s/he takes more th an reasonable time, OR there is a safety concern when s/he performs the transfers TRANSFERS: BED, CHAIR, WHEELCHAIR - SCORE: 6-ABIGAIL TRANSFERS: TOILET: Activity did not occur on this shift TRANSFERS: TOILET - SCORE: 0-UNK TRANSFERS: SHOWER: Activity did not occur on this shift TRANSFERS: SHOWER - SCORE: 0-UNK TRANSFERS: TUB: Activity did not occur on this shift TRANSFERS: TUB - SCORE: 0-UNK LOCOMOTION: WALK: LOCOMOTION: WALK - STEP 1: Does the patient need help from a person or device, or need extra time to walk 150 feet? Yes. LOCOMOTION: WALK - STEP 2: How much assistance does the patient require to walk a minimum of 150 feet? Only supervision, cuing, or coaxing LOCOMOTION: WALK - SCORE: 5-SUP LOCOMOTION: WHEELCHAIR: LOCOMOTION: WHEELCHAIR - STEP 1: Does the patient need help to go 150 feet in a wheelchair? No. LOCOMOTION: WHEELCHAIR - SCORE: 6-ABIGAIL LOCOMOTION: STAIRS: Activity did not occur on this shift LOCOMOTION: STAIRS - SCORE: 0-UNK COMPREHENSION: COMPREHENSION - SCORE: 0-UNK EXPRESSION EXPRESSION - SCORE: 0-UNK SOCIAL INTERACTION: SOCIAL INTERACTION - SCORE: 0-UNK PROBLEM SOLVING: PROBLEM SOLVING - SCORE: 0-UNK MEMORY: MEMORY - SCORE: 0-UNK SIGNATURE PANEL: The following modified sections: Transfers: Bed, Chair, Wheelchair - Score, Transfers: Toilet - Score , Locomotion: Walk - Score, Locomotion: Wheelchair - Score, Locomotion: Stairs - Score were [steve lawrence] signed by David Garza PTA on WedJan 31 2019 15:34:29 GMT-0500 (Central Daylight Time)
[2019-01-31] MEDS: FORMULATION-R RECTAL 30GM PR PRN (16:24)
[2019-01-31] MEDS: PREMARIN VAGINAL CREAM VAG SCH (16:25)
--- NOTE | 2019-01-31 17:10 | R.PN ---
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 Pt denied any depression. Glucose 97 to 232. Ambulated 240' with contact guard assistance using a rolling walker. Up and down 15 steps with standb y assistance. Self-propelled wheelchair 250' with modified independence. VITAL SIGNS Temperature: 97.8 F SBP/DBP: 118/53 Pulse: 57 Resp: 16 MEDICATION ALLERGIES: No Known Drug Allergies (NKDA) ENVIRONMENTAL ALLERGIES: None Known - Substance Allergies None Known - Other Allergies None Known NURSING: - Shower allowing shower - Lab Results blood Sugar Check ACHS - Skin care per protocol PRECAUTIONS: - Posterior Hip Precaution No adduction across midline No external rotation No hip flexion >90 degrees No internal rotation No wheel chair propulsion - Weight Bearing Precaution TTWB left LE ACTIVITIES OOB only with supervision THERAPIES: - Occupational Therapy Evaluate and Treat. - Physical Therapy Evaluate and Treat. PHYSICAL EXAM - Gen Alert and awake Lying in bed No apparent distress Oriented to: person, time, and place - Skin No breakdown No abnormalities - Eyes No abnormalities - ENMT No abnormalities - Neck No abnormalities - CVS RRR - Chest Clear - Abd +bowel sounds - GI Soft Deferred - No abnormalities - Ext Trace edema in left leg and foot. - MSK 4+/5 weakness in left lower extremity. - Neuro 4/5 strength left lower extremity. - Psych No abnormalities ASSESSMENT: Pt. is a 78 yo Right-handed white female.Her impairment category is Orthopaedic Disorders 08 - Unila teral Hip Fracture (08.).Pre-morbidly, Pt. was independent/mod-I in Transfers Control, Communicatio n, Social Cognition, Self-Care, Locomotion, and Sphincter Control; and she had good Sphincter Control .Currently, she has deficits of Safety Awareness, Transfers Control, Balance, Locomotion, Endurance, and Self-Care.Pt. is now referred to [facility] for acute in-patient rehabilit ation in order to maximize patient's functional independence in activities of daily living, strength, ROM, and mobility.- Rehab Goal Patient has realistic goal of being discharged at assistance level 6-Raquel to reside at Home with Fam susy/Relatives. MDM/PLAN: - Physical Therapy Decreased range of motion - to improve, our physical therapists will perform initial evaluation of p t's status upon admission and devise an individualized program for increasing patient's Range of Lon on. Gait dysfunction - to improve, our physical therapists will perform initial evaluation of pt's statu s upon admission and devise an individualized program for Gait Training, and Wheel Chair mobility Inability to transfer - to improve, our physical therapists will perform initial evaluation of pt's status upon admission and devise an individualized program for Bed mobility Need for home safety evaluation - to improve, our physical therapists will perform initial evaluatio n of pt's status upon admission and devise an individualized program for Home Evaluation Need in caregiver upon discharge - to improve, our physical therapists will perform initial evaluati on of pt's status upon admission and devise an individualized program for Caregiver Training New precaution - to improve, our physical therapists will perform initial evaluation of pt's status upon admission and devise an individualized program for Patient precaution education Edema - to improve, our physical therapists will perform initial evaluation of pt's status upon admi ssion and devise an individualized program for Elevation Training, and Lymphedema Therapy Poor balance - to improve, our physical therapists will perform initial evaluation of pt's status up on admission and devise an individualized program for Balance Training Poor endurance - to improve, our physical therapists will perform initial evaluation of pt's status upon admission and devise an individualized program for Endurance Training Weakness - to improve, our physical therapists will perform initial evaluation of pt's status upon a dmission and devise an individualized program for Aquatic Therapy, Neuromuscular Reeducation, and Str engthening Achieving independence - to improve, our physical therapists will perform initial evaluation of pt's status upon admission and devise an individualized program for Community Reintegration Activities - Occupational Therapy ADL deficits - to improve, our occupation therapists will perform initial evaluation of pt's status upon admission and devise an individualized program for Bathing, Bed mobility, Community Reintegratio n, Cooking, Dressing, Eating, Fine Motor Skills, Grooming, Homemaking, Kitchen Mobility, Laundry, Pat ient Education, Safety Awareness, Splinting - Positioning, Transfers(Toilet, Tub, Shower), and Wheel Chair Management Need for hospice care transitions coordinator - to improve, our occupation therapists will perform initial evaluation of pt's status upon admission and devise an individualized program for Caregiver Training Weakness - to improve, our occupation therapists will perform initial evaluation of pt's status upon admission and devise an individualized program for Aquatic Therapy, Balance, Endurance, UE ROM, and UE strengthening - Anterior Hip Precaution No abduction No active extension No adduction across midline No external rotation No hip flexion >90 degrees No internal rotation - Diet - Liquid Texture Continue Regular - Tube Feed Continue N/A - Diet Type Continue Regular - Posterior Hip Precaution No adduction across midline No external rotation No hip flexion >90 degrees No internal rotation No wheel chair propulsion - Lab Results blood Sugar Check ACHS - Weight Bearing Precaution TTWB left LE - Skin care per protocol - Diet - Solid Texture Continue Regular - Shower allowing shower FUNCTIONAL STATUS: UPDATED AT WEEKLY TEAM CONFERENCE - Bladder Same accident frequency: 7-Ind - No accidents in the past 7 days - Bowel Same accident frequency: 7-Ind - No accidents in the past 7 days - Walking Same score based on distance walked: 2(50-149ft) - Wheelchair Same score based on distance traveled: 0(N/A) FUNCTIONAL STATUS: - Self-Care A. Eating Raquel B. Grooming sup C. Bathing sup D. Dressing - Upper sup E. Dressing - Lower Dep F. Toileting maxA - Sphincter Control G: Bladder control Ind H: Bowel control Ind - Transfers Control I. Bed/Chair/Wheelchair CGA J. Toilet CGA K. Tub/Shower ADNO - Locomotion L. Walk/Wheelchair (C) Salazar L. Walk/Wheelchair (W) Salazar M. Stairs ADNO - Communication N. Comprehension (B) Ind O. Expression (B) Ind - Social Cognition P. Social Interaction Ind Q. Problem Solving Ind R. Memory Ind - Endurance Fair - Balance Fair - Safety Awareness Fair CURRENT FUNC. DEFICITS: Safety Awareness, Transfers Control, Balance, Locomotion, Endurance, and Self-Care SIGNATURE PANEL: (CDT)
[2019-01-31] MEDS: TRAMADOL HCL 50 MG TAB PO PRN (20:18)
[2019-01-31] MEDS: MELATONIN 3 MG TABLET PO PRN (20:18)
[2019-01-31] MEDS: ATORVASTATIN 10 MG TAB PO SCH (20:18)
[2019-01-31] MEDS: AMLODIPINE 5 MG TAB PO SCH (20:20)
--- NOTE | 2019-02-01 03:32 | FAST ---
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 Lamont Mendez M.D. ADMISSION DIAGNOSIS: - Orthopaedic Disorders 08 - Unilateral Hip Fracture (08.11) LEFT HIP INTERTROCHANTERIC FRACTURE. EATING: Activity did not occur on this shift EATING - SCORE: 0-UNK GROOMING: Activity did not occur on this shift GROOMING - SCORE: 0-UNK BATHING: Activity did not occur on this shift BATHING - SCORE: 0-UNK DRESSING - UPPER BODY: Activity did not occur on this shift ARTICLES SCORE Total number of steps: 0 DRESSING - UPPER BODY - SCORE: 0-UNK DRESSING - LOWER BODY: Activity did not occur on this shift ARTICLES SCORE Total number of steps: 0 DRESSING - LOWER BODY - SCORE: 0-UNK TOILETING: TOILETING - STEP 1: Does the patient require the assistance of a person or device, or need extra time with toileting? Yes . TOILETING - STEP 2: Does the patient require the assistance of a helper? Yes. TOILETING - STEP 3: How much assistance does the patient require from the helper? Only supervision TOILETING - SCORE: 5-SUP BLADDER MANAGEMENT: BLADDER MANAGEMENT - STEP 1: Does the patient control the bladder completely and intentionally without equipment or devices or med ications, and is always continent? Yes. BLADDER MANAGEMENT - SCORE: 7-IND BOWEL MANAGEMENT: Activity did not occur on this shift BOWEL MANAGEMENT - SCORE: 7-IND TRANSFERS: BED, CHAIR, WHEELCHAIR: TRANSFERS: BED, CHAIR, WHEELCHAIR - STEP 1: Does the patient require assistance of a person or device, or need extra time with bed, chair, or whe elchair transfers? Yes. TRANSFERS: BED, CHAIR, WHEELCHAIR - STEP 2: Does the patient require the assistance of a helper? Yes. TRANSFERS: BED, CHAIR, WHEELCHAIR - STEP 3: How much assistance does the patient require from the helper? Lifting of the legs TRANSFERS: BED, CHAIR, WHEELCHAIR - STEP 4: How many legs does the patient require the helper to lift? both legs TRANSFERS: BED, CHAIR, WHEELCHAIR - SCORE: 3-MOD TRANSFERS: TOILET: TRANSFERS: TOILET - STEP 1: Does the patient require the assistance of a person or device, or need extra time with toilet transfe rs? Yes. TRANSFERS: TOILET - STEP 2: Does the patient require the assistance of a helper? Yes. TRANSFERS: TOILET - STEP 3: How much assistance does the patient require from the helper? Only supervision, cuing, coaxing, OR he lp to set out transfer equipment or to lock brakes and/or lift foot rests TRANSFERS: TOILET - SCORE: 5-SUP TRANSFERS: SHOWER: Activity did not occur on this shift TRANSFERS: SHOWER - SCORE: 0-UNK TRANSFERS: TUB: Activity did not occur on this shift TRANSFERS: TUB - SCORE: 0-UNK LOCOMOTION: WALK: Activity did not occur on this shift LOCOMOTION: WALK - SCORE: 0-UNK LOCOMOTION: WHEELCHAIR: Activity did not occur on this shift LOCOMOTION: WHEELCHAIR - SCORE: 0-UNK COMPREHENSION: COMPREHENSION: TYPE: Both COMPREHENSION - STEP 1: Does the patient require help from a person or device, or need extra time to understand complex and a bstract ideas (such as current events, finances, discharge planning, medical issues, relationships, e tc)? No. COMPREHENSION - STEP 2: Does the patient need extra time, require an assistive device (such as glasses for visual comprehensi on or a hearing aid for auditory comprehension) or does s/he have mild difficulty understanding compl ex and abstract information? Yes. COMPREHENSION - SCORE: 6-ABIGAIL EXPRESSION EXPRESSION: TYPE: Both EXPRESSION - STEP 1: Does the patient require help from a person or device, or need extra time expressing complex and abst ract ideas (such as current events, finances, discharge planning, medical issues, relationships, etc) ? No. EXPRESSION - STEP 2: Does the patient need extra time, require an assistive device (such as augmentive communication syste m or a communication board), OR does s/he have mild difficulty expressing complex and abstract ideas (including mild dysarthria or mild word-find problems)? No. EXPRESSION - SCORE: 7-IND SOCIAL INTERACTION: SOCIAL INTERACTION - STEP 1: Does the patient require a helper to interact with others in social and therapeutic situations? No. SOCIAL INTERACTION - STEP 2: Does the patient need extra time in social situations, OR does s/he interact with staff, other patien ts, and family members ONLY in structured environments, OR does s/he require medication for social in teraction? No. SOCIAL INTERACTION - SCORE: 7-IND PROBLEM SOLVING: PROBLEM SOLVING - STEP 1: Does the patient need help from a person or device, or need extra time to solve complex problems such as managing a checking account or confronting interpersonal problems? No. PROBLEM SOLVING - STEP 2: Does the patient require extra time to make decisions or solve problems, OR does s/he have slight dif ficulty reading, initiating, or self-correcting in unfamiliar situations? No. PROBLEM SOLVING - SCORE: 7-IND MEMORY: MEMORY - STEP 1: Does the patient need help from a person or device, or need extra time to remember frequently encount ered people, daily routines, and executing requests? No. MEMORY - STEP 2: Does the patient have slight difficulty recognizing frequently encountered people, daily routines, or executing requests without the need for repetition or using self-initiated or environmental cues to remember? No. MEMORY - SCORE: 7-IND SIGNATURE PANEL: The following modified sections: Eating - Score, Grooming - Score, Bathing - Score, Dressing - Upper Body - Score, Dressing - Lower Body - Score, Toileting - Score, Bladder Management - Score, Bowel Man agement - Score, Transfers: Bed, Chair, Wheelchair - Score, Transfers: Toilet - Score, Transfers: Vicki wer - Score, Transfers: Tub - Score, Locomotion: Walk - Score, Locomotion: Wheelchair - Score, Compre hension - Score, Expression - Score, Social Interaction - Score, Problem Solving - Score, Memory - Sc ore were [electronically] signed by Eva Zhang CNA on WedFeb 01 2019 03:32:13 T-0500 ([place] Da ylight Time)
[2019-02-01] MEDS: INSULIN -REGULAR HUMAN 50 UNIT/0.5 ML ML SQ SCH ×2 (07:17→11:29)
[2019-02-01 07:26] VITALS: TEMP 97.2
[2019-02-01] MEDS: PROMOD 30 ML DOSE PO SCH (08:00)
[2019-02-01] MEDS: DOCUSATE NA 100 MG CAP PO SCH ×2 (08:00→08:09)
[2019-02-01] MEDS: NYSTATIN PWDR 100000 UNIT/GM TOP SCH (08:00)
[2019-02-01] MEDS: NICOTINE 21 MG/PAT TD SCH (08:07)
[2019-02-01] MEDS: ENOXAPARIN 40 MG/0.4 ML SQ SCH (08:07)
[2019-02-01] MEDS: FE SULF/FA/VIT B COMP & C TAB PO SCH (08:08)
[2019-02-01] MEDS: METFORMIN ER 500 MG TAB PO SCH (08:08)
[2019-02-01] MEDS: NEBIVOLOL HCL 20 MG TABLET PO SCH (08:09)
[2019-02-01] MEDS: GABAPENTIN 100 MG CAP PO SCH (08:09)
[2019-02-01] MEDS: LOSARTAN POTASSIUM 50 MG TABLET PO SCH (08:10)
[2019-02-01] MEDS: GLIMEPIRIDE 2 MG TABLET PO SCH (08:10)
[2019-02-01] MEDS: FERROUS SULFATE 325 MG TAB PO SCH (08:10)
[2019-02-01 08:11] VITALS: BP 183/74
--- NOTE | 2019-02-01 14:07 | FAST ---
SHIFT START DATE/TIME: 02/01/2019 07:00 (CDT) SHIFT END DATE/TIME: 02/01/2019 19:00 (CDT) NAME VENESSA NUNO DATE OF : 1940 DATE OF ADMISSION: 01/19/2019 16:37 (RUG HOOKER HAND) PHONE: AGE: 78 SSN# [id number] GENDER: Female ENCOUNTER PHYSICIAN: Dr. Lamont Mendez M.D. ADMISSION DIAGNOSIS: - Orthopaedic Disorders 08 - Unilateral Hip Fracture (08.11) LEFT HIP INTERTROCHANTERIC FRACTURE. EATING: EATING - STEP 1: Does the patient require the assistance of a person or device, or need extra time when eating? Yes. EATING - STEP 2: Does the patient require the assistance of a helper? No, patient only requires an assistive device, O R s/he takes more than reasonable time to eat, OR there is a safety concern, OR s/he requires modifie d food consistency EATING - SCORE: 6-ABIGAIL GROOMING: Comb/brush hair Oral care Wash, rinse, and dry face Wash, rinse, and dry hands GROOMING - STEP 1: Does the patient require the assistance of a person or device, or need extra time when grooming? No. GROOMING - SCORE: 7-IND BATHING: Activity did not occur on this shift BATHING - SCORE: 0-UNK DRESSING - UPPER BODY: Activity did not occur on this shift ARTICLES SCORE Total number of steps: 0 DRESSING - UPPER BODY - SCORE: 0-UNK DRESSING - LOWER BODY: Elastic waist pants (three steps) Underwear (three steps) ARTICLES SCORE Total number of steps: 6 DRESSING - LOWER BODY - STEP 1: Does the patient require help from a person or device, or need extra time when dressing below the [address] st? Yes. DRESSING - LOWER BODY - STEP 2: Does the patient require the assistance of a helper? Yes. DRESSING - LOWER BODY - STEP 3: Does the helper touch the patient while dressing? No. DRESSING - LOWER BODY - SCORE: 5-SUP TOILETING: TOILETING - STEP 1: Does the patient require the assistance of a person or device, or need extra time with toileting? Yes . TOILETING - STEP 2: Does the patient require the assistance of a helper? No. TOILETING - SCORE: 6-ABIGAIL BLADDER MANAGEMENT: BLADDER MANAGEMENT - STEP 1: Does the patient control the bladder completely and intentionally without equipment or devices or med ications, and is always continent? No. BLADDER MANAGEMENT - STEP 2: Does the patient require the assistance of a helper? No, patient only requires extra time BLADDER MANAGEMENT - SCORE: 6-ABIGAIL BLADDER MANAGEMENT - FREQUENCY OF ACCIDENTS: BLADDER MANAGEMENT(FA) - STEP 1: How many accidents has the patient had during the current shift? 1 BOWEL MANAGEMENT: Activity did not occur on this shift BOWEL MANAGEMENT - SCORE: 7-IND BOWEL MANAGEMENT - FREQUENCY OF ACCIDENTS: BOWEL MANAGEMENT(FA) - STEP 1: How many accidents has the patient had during the current shift? 0 TRANSFERS: BED, CHAIR, WHEELCHAIR: TRANSFERS: BED, CHAIR, WHEELCHAIR - STEP 1: Does the patient require assistance of a person or device, or need extra time with bed, chair, or whe elchair transfers? Yes. TRANSFERS: BED, CHAIR, WHEELCHAIR - STEP 2: Does the patient require the assistance of a helper? No. Patient only requires an assistive device fo r bed, chair, wheelchair transfers such as a sliding board, grab bar, or brace, OR s/he takes more th an reasonable time, OR there is a safety concern when s/he performs the transfers TRANSFERS: BED, CHAIR, WHEELCHAIR - SCORE: 6-ABIGAIL TRANSFERS: TOILET: TRANSFERS: TOILET - STEP 1: Does the patient require the assistance of a person or device, or need extra time with toilet transfe rs? Yes. TRANSFERS: TOILET - STEP 2: Does the patient require the assistance of a helper? No. Patient only requires an assistive device wallace ch as a grab bar or special seat, OR s/he takes more than reasonable time to perform toilet transfers , OR there is a safety concern when s/he performs toilet transfers. TRANSFERS: TOILET - SCORE: 6-ABIGAIL TRANSFERS: SHOWER: Activity did not occur on this shift TRANSFERS: SHOWER - SCORE: 0-UNK TRANSFERS: TUB: Activity did not occur on this shift TRANSFERS: TUB - SCORE: 0-UNK LOCOMOTION: WALK: Activity did not occur on this shift LOCOMOTION: WALK - SCORE: 0-UNK LOCOMOTION: WHEELCHAIR: LOCOMOTION: WHEELCHAIR - STEP 1: Does the patient need help to go 150 feet in a wheelchair? Yes. LOCOMOTION: WHEELCHAIR - STEP 2: How much assistance does the patient need from the helper? Only supervision, cuing, or coaxing LOCOMOTION: WHEELCHAIR - SCORE: 5-SUP COMPREHENSION: COMPREHENSION: TYPE: Both COMPREHENSION - STEP 1: Does the patient require help from a person or device, or need extra time to understand complex and a bstract ideas (such as current events, finances, discharge planning, medical issues, relationships, e tc)? No. COMPREHENSION - STEP 2: Does the patient need extra time, require an assistive device (such as glasses for visual comprehensi on or a hearing aid for auditory comprehension) or does s/he have mild difficulty understanding compl ex and abstract information? No. COMPREHENSION - SCORE: 7-IND EXPRESSION EXPRESSION: TYPE: Both EXPRESSION - STEP 1: Does the patient require help from a person or device, or need extra time expressing complex and abst ract ideas (such as current events, finances, discharge planning, medical issues, relationships, etc) ? No. EXPRESSION - STEP 2: Does the patient need extra time, require an assistive device (such as augmentive communication syste m or a communication board), OR does s/he have mild difficulty expressing complex and abstract ideas (including mild dysarthria or mild word-find problems)? Yes. EXPRESSION - SCORE: 6-ABIGAIL SOCIAL INTERACTION: SOCIAL INTERACTION - STEP 1: Does the patient require a helper to interact with others in social and therapeutic situations? No. SOCIAL INTERACTION - STEP 2: Does the patient need extra time in social situations, OR does s/he interact with staff, other patien ts, and family members ONLY in structured environments, OR does s/he require medication for social in teraction? Yes, patient needs extra time SOCIAL INTERACTION - SCORE: 6-ABIGAIL PROBLEM SOLVING: PROBLEM SOLVING - STEP 1: Does the patient need help from a person or device, or need extra time to solve complex problems such as managing a checking account or confronting interpersonal problems? No. PROBLEM SOLVING - STEP 2: Does the patient require extra time to make decisions or solve problems, OR does s/he have slight dif ficulty reading, initiating, or self-correcting in unfamiliar situations? Yes, patient needs extra ti me. PROBLEM SOLVING - SCORE: 6-ABIGAIL MEMORY: MEMORY - STEP 1: Does the patient need help from a person or device, or need extra time to remember frequently encount ered people, daily routines, and executing requests? No. MEMORY - STEP 2: Does the patient have slight difficulty recognizing frequently encountered people, daily routines, or executing requests without the need for repetition or using self-initiated or environmental cues to remember? Yes. MEMORY - SCORE: 6-ABIGAIL SIGNATURE PANEL: The following modified sections: Eating - Score, Grooming - Score, Bathing - Score, Dressing - Upper Body - Score, Dressing - Lower Body - Score, Toileting - Score, Bladder Management - Score, Bowel Man agement - Score, Transfers: Bed, Chair, Wheelchair - Score, Transfers: Toilet - Score, Transfers: Vicki wer - Score, Transfers: Tub - Score, Locomotion: Walk - Score, Locomotion: Wheelchair - Score, Compre hension - Score, Expression - Score, Social Interaction - Score, Problem Solving - Score, Memory - Sc ore were [electronically] signed by Sophie Kaiser C.N.A. on WedFeb 01 2019 14:07:16 T-0500 ([place])
--- NOTE | 2019-02-01 14:40 | FAST ---
ENCOUNTER DATE AND TIME: 02/01/2019 08:00 (CDT) NAME VENESSA NUNO DATE OF : 1940 DATE OF ADMISSION: 01/19/2019 16:37 (BRIM STRETCHER) PHONE: AGE: 78 SSN# [id number] GENDER: Female ENCOUNTER PHYSICIAN: Dr. Lamont Mendez M.D. ADMISSION DIAGNOSIS: - Orthopaedic Disorders 08 - Unilateral Hip Fracture (08.11) LEFT HIP INTERTROCHANTERIC FRACTURE. EATING: Activity did not occur on this shift EATING - SCORE: 0-UNK GROOMING: Activity did not occur on this shift GROOMING - SCORE: 0-UNK BATHING: Activity did not occur on this shift BATHING - SCORE: 0-UNK DRESSING - UPPER BODY: Activity did not occur on this shift Patient is not dressing in public clothing ARTICLES SCORE Total number of steps: 0 DRESSING - UPPER BODY - SCORE: 0-UNK DRESSING - LOWER BODY: Activity did not occur on this shift Patient is not dressing in public clothing ARTICLES SCORE Total number of steps: 0 DRESSING - LOWER BODY - SCORE: 0-UNK TOILETING: Activity did not occur on this shift TOILETING - SCORE: 0-UNK BLADDER MANAGEMENT: Activity did not occur on this shift BLADDER MANAGEMENT - SCORE: 7-IND BOWEL MANAGEMENT: Activity did not occur on this shift BOWEL MANAGEMENT - SCORE: 7-IND TRANSFERS: BED, CHAIR, WHEELCHAIR: TRANSFERS: BED, CHAIR, WHEELCHAIR - STEP 1: Does the patient require assistance of a person or device, or need extra time with bed, chair, or whe elchair transfers? Yes. TRANSFERS: BED, CHAIR, WHEELCHAIR - STEP 2: Does the patient require the assistance of a helper? No. Patient only requires an assistive device fo r bed, chair, wheelchair transfers such as a sliding board, grab bar, or brace, OR s/he takes more th an reasonable time, OR there is a safety concern when s/he performs the transfers TRANSFERS: BED, CHAIR, WHEELCHAIR - SCORE: 6-ABIGAIL TRANSFERS: TOILET: Activity did not occur on this shift TRANSFERS: TOILET - SCORE: 0-UNK TRANSFERS: SHOWER: Activity did not occur on this shift TRANSFERS: SHOWER - SCORE: 0-UNK TRANSFERS: TUB: Activity did not occur on this shift TRANSFERS: TUB - SCORE: 0-UNK LOCOMOTION: WALK: LOCOMOTION: WALK - STEP 1: Does the patient need help from a person or device, or need extra time to walk 150 feet? Yes. LOCOMOTION: WALK - STEP 2: How much assistance does the patient require to walk a minimum of 150 feet? Only supervision, cuing, or coaxing LOCOMOTION: WALK - SCORE: 5-SUP LOCOMOTION: WHEELCHAIR: LOCOMOTION: WHEELCHAIR - STEP 1: Does the patient need help to go 150 feet in a wheelchair? No. LOCOMOTION: WHEELCHAIR - SCORE: 6-ABIGAIL LOCOMOTION: STAIRS: Activity did not occur on this shift LOCOMOTION: STAIRS - SCORE: 0-UNK COMPREHENSION: COMPREHENSION - SCORE: 0-UNK EXPRESSION EXPRESSION - SCORE: 0-UNK SOCIAL INTERACTION: SOCIAL INTERACTION - SCORE: 0-UNK PROBLEM SOLVING: PROBLEM SOLVING - SCORE: 0-UNK MEMORY: MEMORY - SCORE: 0-UNK SIGNATURE PANEL: The following modified sections: Transfers: Bed, Chair, Wheelchair - Score, Transfers: Toilet - Score , Locomotion: Walk - Score, Locomotion: Wheelchair - Score, Locomotion: Stairs - Score were [steve lawrence] signed by David Garza PTA on WedFeb 01 2019 14:40:12 GMT-0500 (Central Daylight Time)
--- NOTE | 2019-02-01 18:01 | R.PN ---
ENCOUNTER DATE AND TIME: 02/01/2019 17:50 (CDT) NAME VENESSA NUNO DATE OF : 1940 DATE OF ADMISSION: 01/19/2019 16:37 (SHIPPING HAND) LEFT HIP INTERTROCHANTERIC FRACTURECHIEF COMPLAINT: Left hip fracture and repair SUBJECTIVE: Pt denied any Shortness of Breath. Pt denied any depression. Glucose 97 to 232. Ambulated 420' with modified independence using a rolling walker. Up and down 15 steps with standby a ssistance. Self-propelled wheelchair 250' with modified independence. VITAL SIGNS Temperature: 98.0 F SBP/DBP: 159/71 Pulse: 58 Resp: 16 MEDICATION ALLERGIES: No Known Drug Allergies (NKDA) ENVIRONMENTAL ALLERGIES: None Known - Substance Allergies None Known - Other Allergies None Known NURSING: - Shower allowing shower - Lab Results blood Sugar Check ACHS - Skin care per protocol PRECAUTIONS: - Posterior Hip Precaution No adduction across midline No external rotation No hip flexion >90 degrees No internal rotation No wheel chair propulsion - Weight Bearing Precaution TTWB left LE ACTIVITIES OOB only with supervision THERAPIES: - Occupational Therapy Evaluate and Treat. - Physical Therapy Evaluate and Treat. PHYSICAL EXAM - Gen Alert and awake Lying in bed No apparent distress Oriented to: person, time, and place - Skin No breakdown No abnormalities - Eyes No abnormalities - ENMT No abnormalities - Neck No abnormalities - CVS RRR - Chest Clear - Abd +bowel sounds - GI Soft Deferred - No abnormalities - Ext Trace edema in left leg and foot. - MSK 4+/5 weakness in left lower extremity. - Neuro 4/5 strength left lower extremity. - Psych No abnormalities ASSESSMENT: Pt. is a 78 yo Right-handed white female.Her impairment category is Orthopaedic Disorders 08 - Unila teral Hip Fracture (06.25).Pre-morbidly, Pt. was independent/mod-I in Transfers Control, Communicatio n, Social Cognition, Self-Care, Locomotion, and Sphincter Control; and she had good Sphincter Control .Currently, she has deficits of Safety Awareness, Transfers Control, Balance, Locomotion, Endurance, and Self-Care.Pt. is now [facility] for acute in-patient rehabilit atunc health in order to maximize patient's functional independence in activities of daily living, strength, ROM, and mobility.- Rehab Goal Patient has realistic goal of being discharged at assistance level 6-Raquel to reside at Home with Fam susy/Relatives. MDM/PLAN: - Physical Therapy Decreased range of motion - to improve, our physical therapists will perform initial evaluation of p t's status upon admission and devise an individualized program for increasing patient's Range of Lon on. Gait dysfunction - to improve, our physical therapists will perform initial evaluation of pt's statu s upon admission and devise an individualized program for Gait Training, and Wheel Chair mobility Inability to transfer - to improve, our physical therapists will perform initial evaluation of pt's status upon admission and devise an individualized program for Bed mobility Need for home safety evaluation - to improve, our physical therapists will perform initial evaluatio n of pt's status upon admission and devise an individualized program for Home Evaluation Need in caregiver upon discharge - to improve, our physical therapists will perform initial evaluati on of pt's status upon admission and devise an individualized program for Caregiver Training New precaution - to improve, our physical therapists will perform initial evaluation of pt's status upon admission and devise an individualized program for Patient precaution education Edema - to improve, our physical therapists will perform initial evaluation of pt's status upon admi ssion and devise an individualized program for Elevation Training, and Lymphedema Therapy Poor balance - to improve, our physical therapists will perform initial evaluation of pt's status up on admission and devise an individualized program for Balance Training Poor endurance - to improve, our physical therapists will perform initial evaluation of pt's status upon admission and devise an individualized program for Endurance Training Weakness - to improve, our physical therapists will perform initial evaluation of pt's status upon a dmission and devise an individualized program for Aquatic Therapy, Neuromuscular Reeducation, and Str engthening Achieving independence - to improve, our physical therapists will perform initial evaluation of pt's status upon admission and devise an individualized program for Community Reintegration Activities - Occupational Therapy ADL deficits - to improve, our occupation therapists will perform initial evaluation of pt's status upon admission and devise an individualized program for Bathing, Bed mobility, Community Reintegratio n, Cooking, Dressing, Eating, Fine Motor Skills, Grooming, Homemaking, Kitchen Mobility, Laundry, Pat ient Education, Safety Awareness, Splinting - Positioning, Transfers(Toilet, Tub, Shower), and Wheel Chair Management Need for medicare specialist - to improve, our occupation therapists will perform initial evaluation of pt's status upon admission and devise an individualized program for Caregiver Training Weakness - to improve, our occupation therapists will perform initial evaluation of pt's status upon admission and devise an individualized program for Aquatic Therapy, Balance, Endurance, UE ROM, and UE strengthening - Anterior Hip Precaution No abduction No active extension No adduction across midline No external rotation No hip flexion >90 degrees No internal rotation - Diet - Liquid Texture Continue Regular - Tube Feed Continue N/A - Diet Type Continue Regular - Posterior Hip Precaution No adduction across midline No external rotation No hip flexion >90 degrees No internal rotation No wheel chair propulsion - Lab Results blood Sugar Check ACHS - Weight Bearing Precaution TTWB left LE - Skin care per protocol - Diet - Solid Texture Continue Regular - Shower allowing shower FUNCTIONAL STATUS: UPDATED AT WEEKLY TEAM CONFERENCE - Bladder Same accident frequency: 7-Ind - No accidents in the past 7 days - Bowel Same accident frequency: 7-Ind - No accidents in the past 7 days - Walking Same score based on distance walked: 2(50-149ft) - Wheelchair Same score based on distance traveled: 0(N/A) FUNCTIONAL STATUS: - Self-Care A. Eating Raquel B. Grooming sup C. Bathing sup D. Dressing - Upper sup E. Dressing - Lower Dep F. Toileting maxA - Sphincter Control G: Bladder control Ind H: Bowel control Ind - Transfers Control I. Bed/Chair/Wheelchair CGA J. Toilet CGA K. Tub/Shower ADNO - Locomotion L. Walk/Wheelchair (C) Salazar L. Walk/Wheelchair (W) Salazar M. Stairs ADNO - Communication N. Comprehension (B) Ind O. Expression (B) Ind - Social Cognition P. Social Interaction Ind Q. Problem Solving Ind R. Memory Ind - Endurance Fair - Balance Fair - Safety Awareness Fair CURRENT FUNC. DEFICITS: Safety Awareness, Transfers Control, Balance, Locomotion, Endurance, and Self-Care SIGNATURE PANEL: (CDT)
--- NOTE | 2019-02-01 18:03 | R.DS ---
FACILITY [facility] MR# [id number] NAME LUISA SANCHEZ ADDRESS [address] [place] [address] [address] [id number] PHONE DATE OF 1940 AGE 78 SSN# [id number] GENDER Female DEXTERITY Right-handed MARITAL STATUS RACE White ENCOUNTER PHYSICIAN Dr. Lamont Mendez M.D. REFERRING DOCTOR Yuliana Taylor REFERRING FACILITY [facility] DISCHARGE DIAGNOSIS: - Orthopaedic Disorders 08 - Unilateral Hip Fracture (08.11) LEFT HIP INTERTROCHANTERIC FRACTURE. 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) - N/A HYPERTENSION HYPERLIPIDEMIA PROLAPSE UTERUS DATE OF ADMISSION 01/19/2019 16:37 (SQL SERVER DBA) MEDICATION ALLERGIES: No Known Drug Allergies (NKDA) ENVIRONMENTAL ALLERGIES: None Known - Substance Allergies None Known - Other Allergies None Known NURSING: - Shower allowing shower - Lab Results blood Sugar Check ACHS - Skin care per protocol PRECAUTIONS: - Posterior Hip Precaution No adduction across midline No external rotation No hip flexion >90 degrees No internal rotation No wheel chair propulsion - Weight Bearing Precaution TTWB left LE ACTIVITIES OOB only with supervision THERAPIES: - Occupational Therapy Evaluate and Treat - Physical Therapy Evaluate and Treat HISTORY OF PRESENT ILLNESS: Pt. is a 78 yo Right-handed white female.Her impairment category is Orthopaedic Disorders 08 - Unila teral Hip Fracture (08.11).Pre-morbidly, Pt. was independent/mod-I in Self-Care, Sphincter Control, T ransfers Control, Communication, and Social Cognition; and she had good Sphincter Control.Currently, she has deficits of Safety Awareness, Transfers Control, Balance, Locomotion, Endurance, and Self-Car e.Pt. is now referred to [facility] for acute in-patient rehabilitation in ord er to maximize patient's functional independence in activities of daily living, strength, ROM, and mo bility.- Rehab Goal Patient has realistic goal of being discharged at assistance level 6-Raquel to reside at Home with Fam susy/Relatives. Luisa Sanchez is a 78 year old female that lives in a single ramón home with a ramp. Patient is independent with ADL doing laundry and cooking at home and can still drive. On 01/11/2019, she fell while trying to pickle sorter her newspaper and was admitted to [facility] and treated. She is now medically stable but in need of 24-hour nursing, doctor supervision and oversite while receiving The patient is reasonably expected to participate in 3hours of therapy a day/15 hours per week and receive care with an intensive interdisciplinary approach.HOSPITAL COURSE: ANTERIOR HIP PRECAUTION: On 01/20/2019 the following precautions were added for the patient: Anterior Hip Precaution - No abd uction, Anterior Hip Precaution - No active extension, Anterior Hip Precaution - No adduction acros s midline, Anterior Hip Precaution - No external rotation, Anterior Hip Precaution - No hip flexion >90 degrees, and Anterior Hip Precaution - No internal rotation. On 01/23/2019 the following precautions were removed for the patient: Anterior Hip Precaution - No a bduction, Anterior Hip Precaution - No active extension, Anterior Hip Precaution - No adduction acr oss midline, Anterior Hip Precaution - No external rotation, Anterior Hip Precaution - No hip flexi on >90 degrees, and Anterior Hip Precaution - No internal rotation. The following precautions were added for the patient: Anterior Hip Precaution - No abduction, Anterio r Hip Precaution - No active extension, Anterior Hip Precaution - No adduction across midline, Anteri or Hip Precaution - No external rotation, Anterior Hip Precaution - No hip flexion >90 degrees, and A nterior Hip Precaution - No internal rotation. On 01/25/2019 the following precautions were removed for the patient: Anterior Hip Precaution - No ab duction, Anterior Hip Precaution - No active extension, Anterior Hip Precaution - No adduction across midline, Anterior Hip Precaution - No external rotation, Anterior Hip Precaution - No hip flexion >9 0 degrees, and Anterior Hip Precaution - No internal rotation. The following precautions were added for the patient: Anterior Hip Precaution - No abduction, Anteri or Hip Precaution - No active extension, Anterior Hip Precaution - No adduction across midline, Ant erior Hip Precaution - No external rotation, Anterior Hip Precaution - No hip flexion >90 degrees, and Anterior Hip Precaution - No internal rotation. The following precautions were removed for the patient: Anterior Hip Precaution - No abduction, Ante rior Hip Precaution - No active extension, Anterior Hip Precaution - No adduction across midline, A nterior Hip Precaution - No external rotation, Anterior Hip Precaution - No hip flexion >90 degrees , and Anterior Hip Precaution - No internal rotation. On 01/19/2019 the following precautions were added for the patient: Posterior Hip Precaution - No add uction across midline, Posterior Hip Precaution - No wheel chair propulsion, Posterior Hip Precaution - No hip flexion >90 degrees, Posterior Hip Precaution - No internal rotation, and Posterior Hip Pre caution - No external rotation. On 01/23/2019 the following precautions were added for the patient: Posterior Hip Precaution - No ad duction across midline, Posterior Hip Precaution - No external rotation, Posterior Hip Precaution - No hip flexion >90 degrees, Posterior Hip Precaution - No internal rotation, and Posterior Hip Prec aution - No wheel chair propulsion. The following precautions were removed for the patient: Posterior Hip Precaution - No adduction acros s midline, Posterior Hip Precaution - No external rotation, Posterior Hip Precaution - No hip flexion >90 degrees, Posterior Hip Precaution - No internal rotation, Posterior Hip Precaution - No wheel ch air propulsion, Posterior Hip Precaution - No adduction across midline, Posterior Hip Precaution - No external rotation, Posterior Hip Precaution - No hip flexion >90 degrees, Posterior Hip Precautio n - No internal rotation, and Posterior Hip Precaution - No wheel chair propulsion. On 01/19/2019 the following precautions were added for the patient: Weight Bearing Precaution - TTWB left LE. On 01/20/2019 the following precautions were added for the patient: Weight Bearing Precaution - TTWB left LE. On 01/23/2019 the following precautions were removed for the patient: Weight Bearing Precaution - TT WB left LE. On 01/25/2019 the following precautions were added for the patient: Weight Bearing Precaution - TTWB left LE. DIET - LIQUID TEXTURE: On 01/19/2019 Pt was upgraded to Regular Diet - Liquid Texture. DIET - SOLID TEXTURE: On 01/19/2019 Pt was upgraded to Regular Diet - Solid Texture. DIET TYPE: On 01/19/2019 Pt was upgraded to Regular Diet Type. POSTERIOR HIP PRECAUTION: TUBE FEED: On 01/19/2019 Pt was changed to N/A Tube Feed. WEIGHT BEARING PRECAUTION: DISCHARGE PHYSICAL EXAM - Gen Alert and awake Lying in bed No apparent distress Oriented to: person, time, and place - Skin No breakdown No abnormalities - Eyes No abnormalities - ENMT No abnormalities - Neck No abnormalities - CVS RRR - Chest Clear - Abd +bowel sounds - GI Soft Deferred - No abnormalities - Ext Trace edema in left leg and foot. - MSK 4+/5 weakness in left lower extremity. - Neuro 4/5 strength left lower extremity. - Psych No abnormalities FUNCTIONAL STATUS: - Self-Care A. Eating 7-Ind B. Grooming 6-Raquel C. Bathing 6-Raquel D. Dressing - Upper 6-Raquel E. Dressing - Lower 5-sup F. Toileting 5-sup - Sphincter Control G: Bladder control 7-Ind H: Bowel control 7-Ind - Transfers Control I. Bed/Chair/Wheelchair 6-Raquel J. Toilet 6-Raquel K. Tub/Shower 6-Raquel - Locomotion L. Walk/Wheelchair (C) 6-Raquel L. Walk/Wheelchair (W) 5-sup M. Stairs 5-sup - Communication N. Comprehension (B) 7-Ind O. Expression (B) 7-Ind - Social Cognition P. Social Interaction 7-Ind Q. Problem Solving 7-Ind R. Memory 7-Ind - Endurance Fair - Balance Fair - Safety Awareness Fair DISCHARGE INSTRUCTIONS: - N/A Eliquis 2.5 mg twice daily. DISCHARGE PLAN, FOLLOW UP CARE PROVISIONS: - Estimated Length of Stay (days) 14. - Consensus on plan Discharge plan has been discussed with primary caregiver. Patient/Family is in agreement with the nba n. Primary caregiver is in agreement with the plan. - Patient/Family Goals Return home with assistance. - Planned Living Setting Upon Discharge Home, to live with Family/Relatives. SIGNATURE PANEL: (CDT)
== END 2019-02-01 14:15 | disposition home health service (06) | DRG 560 ==
LOC: 5TH 01-19 16:37
PROVIDERS: ADMIT Psychiatry & Neurology Neurology with Special Qualifications in Child Neurology; ATTEND Psychiatry & Neurology Neurology with Special Qualifications in Child Neurology
DX: S72.142D Displaced intertrochanteric fracture of left femur, subsequent encounter for closed fracture with routine healing (principal); N17.9 Acute kidney failure, unspecified; D62 Acute posthemorrhagic anemia; N30.00 Acute cystitis without hematuria; E11.40 Type 2 diabetes mellitus with diabetic neuropathy, unspecified; I10 Essential (primary) hypertension; E78.5 Hyperlipidemia, unspecified; N81.10 Cystocele, unspecified; E11.65 Type 2 diabetes mellitus with hyperglycemia
CPT/HCPCS: 36415; 80048; 82040; 82962; 83735; 84134; 85025; 92507; 92523; 97110; 97116; 97150; 97163; 97167; 97530; 97542; J1650

== ENCOUNTER 2023-10-01 21:44 | Inpatient (IN) | payer OTHER ==
--- OUTSIDE RECORDS SUMMARY | 2023-10-01 22:02 | XMS REPORT | Continuity of Care Document ---
:[address] [facility] t Address [address] [place] [address] Care Team Providers Name Role Phone PAU DARIEL Primary Care Physician Unavailable MARK SEWELL Attending Clinician Unavailable JOSE ANTONIO LEYVA Attending Clinician Unavailable Jose Antonio Leyva DO Attending Clinician Doctor Unassigned, [place] Attending Clinician Unavailable [email or web address] Attending Clinician Unavailable Mark Sewell MD Attending Clinician Lobo Chávez RN Attending Clinician Unavailable MACARIO SHERMAN Attending Clinician Unavailable MACARIO SHERMAN Attending Clinician Unavailable Ovidio Sheets MD Attending Clinician Tigre Murrell MD Attending Clinician Lionel SILVERIOC, Yovana Suazo Attending Clinician [phone] Antoine CANTU, Brandin K.HMaya Attending Clinician INGRID RICHARDSON Attending Clinician Unavailable Lizabeth MUNOZ, Magalis S Attending Clinician FAUSTO PATRICIO Attending Clinician Unavailable Kenrick RN, Giuliana Attending Clinician Unavailable ANN ABDI Attending Clinician Unavailable Aislinn CANTU, Jemima Miranda Attending Clinician Ann Abdi MD Attending Clinician Vidya Downey MD Attending Clinician Nohelia CARLSON, Melody Attending Clinician Unavailable TIGRE MURRELL Attending Clinician Unavailable Artemoi Valadez DO Attending Clinician Silver CANTU, Deena Stover Attending Clinician DEENA SHEPPARD Attending Clinician Unavailable Brenda LUZ, Carlos Attending Clinician Paola Jeong MD Attending Clinician Tessa Foote MD Attending Clinician Hipolito Mullen MD Attending Clinician Jagdish Floyd MD Attending Clinician Brittany Marks DO Attending Clinician Michelle Brady Attending Clinician Nurse, [facility] Attending Clinician Unavailable MICHELLE OCHOA Attending Clinician Unavailable Only, [facility] Attending Clinician Unavailable JOSE ANTONIO LEYVA Admitting Clinician Unavailable [email or web address] Admitting Clinician Unavailable MACARIO SHERMAN Admitting Clinician Unavailable TIGRE MURRELL Admitting Clinician Unavailable Tigre Murrell MD Admitting Clinician VIDYA DOWNEY Admitting Clinician Unavailable Vidya Downey MD Admitting Clinician FAUSTO PATRICIO Admitting Clinician Unavailable BRITTANY MARKS Admitting Clinician Unavailable Brittany Marks DO Admitting Clinician Payers Payer Name Policy Type Policy Number Effective Date Expiration Date Harini blevins [facility] [id number] 2021 [facility] [place] 00:00:00 PPO Problems Condition Condition Condition Status Onset Resolution Last Treating Co mments Source Name Details Category Date Date Treatment Clinician Date NSTEMI NSTEMI Disease Active Univers (non-ST (non-ST 8-08 ity of elevated elevated 00:00: [place] myocardial myocardial 00 Me dical infarction infarction Br anch ) ) Paroxysmal Paroxysmal Disease Active U nivers atrial atrial 8-08 [place]y of fibrill[place] fibr[place] with 00 Medical RVR RVR Branch ESRD (end ESRD (end Disease Active Uni vers stage stage 8-08 ity of renal renal 00:00: [place] disease) disease) 00 Medica l on on Branch dialysis dialysis Cigarette Cigarette Disease Active Uni vers smoker smoker 8-08 ity of 00:00: [place] 00 Medical Branch Primary Primary Disease Active Univers hypertensi hypertensi 8-08 it y of on on 00:00: [place] 00 Medical Branch Other Other Disease Active Univers hyperlipid hyperlipid 808 it y of emia emia 00:00: [place] 00 Medical Branch Type 2 Type 2 Disease Active Univers diabetes diabetes 808 ity of mellitus mellitus 00:00: [place] without without 00 Medical complicati complicati Br anch on, on, without without long-term long-term current current use of use of insulin insulin Pulmonary Pulmonary Disease Active Uni vers hypertensi hypertensi 8-08 it y of on on 00:00: [place] 00 Medical Branch 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 8-08 ity of 00:00: [place] 00 Medical Branch 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-08 ity of calcificat calcificat 00:[place] 00 Medical Branch Elevated Elevated Disease Active Unive rs brain brain 8-08 ity of natriureti natriureti 00:00[place] c peptide c peptide 00 Medi byron (BNP) (BNP) Branch level level Palpitatio Palpitatio Disease Active U nivers ns ns 7-21 ity of 00:00: [place] 00 Medical Branch Dizziness Dizziness Disease Active Uni vers 7-21 ity of 00:00: [place] 00 [facility] Branch Acute Acute Disease Active Univers bronchitis bronchitis 2-13 it y of , , 00:00: [place] unspecifie unspecifie 00 Me dical d organism d organism Br anch Acute Acute Disease Active Univers respirator respirator 7-04 it y of y failure y failure 00:00[place] ESRD (end ESRD (end Disease Active Overview: Methodi stage stage 3-[address] renal renal 00:00: g of this Hospita disease) disease) 00 note l might be different from the original. Added automatic ally from request for surgery [id number] CKD CKD Disease Active 2020-11 Univers (chronic (chronic 2-19 ity of kidney kidney 00:00: [place] disease) disease) 00 Medica l stage 5, stage 5, Branch GFR less GFR less than 15 than 15 ml/min ml/min E44.0 E44.0 Disease Active 2020-11 Univers Moderate Moderate 2-16 ity of protein protein 00:00: [place] calorie calorie 00 Medical malnutriti malnutriti Br anch on on Community Community Disease Active 2020-11 Uni vers acquired acquired 2-11 ity of bacterial bacterial 00:[place] pneumonia 00 [facility] Allergies, Adverse Reactions, Alerts Allergy Allergy Status Severity Reaction(s) Onset Inactive Treating Comm ents Source Name Type Date Date Clinician NO KNOWN Drug Active Univers ALLERGIE Class ity of S [facility] Family History Family Member Diagnosis Comments Start Date Stop Date Source Natural father Diabetes [facility] Natural father Hypertension [facility] Natural mother Cancer [facility] Social History Social Habit Start Date Stop Date Quantity Comments Source History of tobacco Passive smoker Un iversity of use [facility] History SDOH Social Unive rsity of [facility] Med ical Together Branch History SDOH Social Unive rsity of [facility] History SDOH Social Unive rsity of [facility] Medical Membership Branch History SDOH Social Unive rsity of [facility] Meetings Branch Gender identity Universit y of [facility] Sexual orientation Method ist [facility] Cigarette 2023-06-21 2023-06-21 University of pack-years 00:00:00 00:00:00 [place] [facility] History of Social 2023-05-11 2023-05-[address] function 00:00:00 00:00:00 Hospital Exposure to 2022-12-18 2022-12-28 Not sure University of SARS-CoV-2 (event) 00:00:00 02:54:00 [place] [facility] History SDOH 2022-12-28 2022-12-28 1 University o f Alcohol Frequency 00:00:00 00:00:00 [place] M edical Branch History SDOH 2022-12-28 2022-12-28 0 University o f Alcohol Std Drinks 00:00:00 00:00:00 [place] [facility] History SDOH 2022-12-28 2022-12-28 1 University o f Alcohol Binge 00:00:00 00:00:00 [place] Medic al Branch History SDOH Social 2022-12-28 2022-12-28 5 Unive rsity of Connections Phone 00:00:00 00:00:00 [facility] edical Branch History SDOH Social 2022-12-28 2022-12-28 4 Unive rsity of Connections Living 00:00:00 00:00:00 [place] [facility] History SDOH 2022-12-28 2022-12-28 0 University o f Physical Activity 00:00:00 00:00:00 [facility] edical DPW Branch History SDOH 2022-12-28 2022-12-28 0 University o f Physical Activity 00:00:00 00:00:00 [facility] edical MPS Branch History SDOH 2022-12-28 2022-12-28 5 University o f Financial 00:00:00 00:00:00 [place] [facility] History SDOH Food 2022-12-28 2022-12-28 1 Univers ity of Worry 00:00:00 00:00:00 [place] [facility] History SDOH Food 2022-12-28 2022-12-28 1 Univers ity of Scarcity 00:00:00 00:00:00 [place] [facility] History SDOH 2022-12-28 2022-12-28 2 University o f Transport Med 00:00:00 00:00:00 [place] [facility] History SDOH 2022-12-28 2022-12-28 2 University o f Transport Non-Med 00:00:00 00:00:00 [place] M edical Branch Alcohol intake 2022-01-29 2022-01-29 Lifetime [facility] 00:00:00 00:00:00 non-drinker Hospital (finding) Cigarettes smoked 2022-01-22 2022-01-[address] current (pack per 00:00:00 00:00:00 Hospita l day) - Reported Tobacco use and 2022-01-22 2022-01-22 Smokeless [facility] exposure 00:00:00 00:00:00 tobacco non-user Hospital Sex Assigned At [birth year] [facility] 00:00:00 00:00:00 Hospital Smoking Status Start Date Stop Date Source Smokes tobacco daily 2023-06-21 00:00:00 [facility] Medications Ordered Filled Start Stop Current Ordering Indication Dosage Frequency Signature Comments Components Source Medication Medication Date Date Medication? Clinician (SIG) Name Name hydralAZINE 2022-11- No 10mg 10 mg, Uni vers (APRESOLINE 11-20 Slow IV ity of ) injection 13:15: 13:15 [place] 10 mg 00 :00 ONCE, 1 Medical dose, On Branch 09/20/23 at 0715, BRIA metoprolol 2022- No 50mg Take 50 mg Univers succinate 08-02 by mouth ity o f XL 50 mg 24 09:54: 00:00 in the [place] hr tablet 23 :00 morning Medical and 50 mg Branch in the evening. metoprolol 2022- No 50mg Take 50 mg Univers succinate 08-02 by mouth ity o f XL 50 mg 24 09:54: 00:00 in the [place] hr tablet 23 :00 morning Medical and 50 mg Branch in the evening. metoprolol 2022- No 50mg Take 50 mg Univers succinate 08-02-18 by mouth ity o f XL 50 mg 24 09:54: 00:00 in the [place] hr tablet 23 :00 morning Medical and 50 mg Branch in the evening. metoprolol Yes 25mg Take 0.5 Uni vers succinate -18 tablets by ity of XL 50 mg 24 00:00: [place] tablet 00 the Medical morning Branch and 0.5 tablets in the evening. atorvastati 2022-0 Yes [id number] 40mg Take 1 Univers n 40 mg 9-18 tablet by ity of tablet 00:00: mouth at [place] 00 bedtime. Medical Branch lisinopriL 2022-0 Yes [id number] 10mg Take 1 U nivers 10 mg 9-18 tablet by ity of tablet 00:00: mouth in [place] 00 the Medical morning. Branch clopidogreL 2022-0 Yes [id number] 75mg Take 1 Univers (PLAVIX) 75 9-18 tablet by ity of mg tablet 00:00: [place] 00 the Medical morning. Branch metoprolol 2022-0 Yes 25mg Take 0.5 Uni vers succinate 9-18 tablets by ity of XL 50 mg 24 00:00: [place] in [place] tablet 00 the Medical morning Branch and 0.5 tablets in the evening. atorvastati 2022-0 Yes [id number] 40mg Take 1 Univers n 40 mg 9-18 tablet by ity of tablet 00:00: mouth at [place] 00 bedtime. Medical Branch lisinopriL 2022-0 Yes [id number] 10mg Take 1 U nivers 10 mg 9-18 tablet by ity of tablet 00:00: mouth in [place] 00 the Medical morning. Branch clopidogreL 2022-0 Yes [id number] 75mg Take 1 Univers (PLAVIX) 75 9-18 tablet by ity of mg tablet 00:00: [place] 00 the Medical morning. Branch metoprolol 2022-0 Yes 25mg Take 0.5 Uni vers succinate 9-18 tablets by ity of XL 50 mg 24 00:00: [place] tablet 00 the Medical morning Branch and 0.5 tablets in the evening. atorvastati 2022-0 Yes [id number] 40mg Take 1 Univers n 40 mg 9-18 tablet by ity of tablet 00:00: mouth at [place] 00 bedtime. Medical Branch lisinopriL 2022-0 Yes [id number] 10mg Take 1 U nivers 10 mg 9-18 tablet by ity of tablet 00:00: mouth in [place] 00 the Medical morning. Branch clopidogreL 2022-0 Yes [id number] 75mg Take 1 Univers (PLAVIX) 75 9-18 tablet by ity of mg tablet 00:00: [place] 00 the Medical morning. Branch metoprolol 0 Yes 25mg Take 0.5 Uni vers succinate 9-18 tablets by ity of XL 50 mg 24 00:00: [place] in [place] tablet 00 the Medical morning Branch and 0.5 tablets in the evening. atorvastati 2022-0 Yes [id number] 40mg Take 1 Univers n 40 mg 9-18 tablet by ity of tablet 00:00: mouth at [place] 00 bedtime. Medical Branch lisinopriL 2022-0 Yes [id number] 10mg Take 1 U nivers 10 mg 9-18 tablet by ity of tablet 00:00: mouth in [place] 00 the Medical morning. Branch clopidogreL 0 Yes [id number] 75mg Take 1 Univers (PLAVIX) 75 9-18 tablet by ity of mg tablet 00:00: [place] 00 the Medical morning. Branch metoprolol 2022-0 Yes 25mg Take 0.5 Uni vers succinate 9-18 tablets by ity of XL 50 mg 24 00:00: [place] in [place] tablet 00 the Medical morning Branch and 0.5 tablets in the evening. atorvastati 0 Yes [id number] 40mg Take 1 Univers n 40 mg 9-18 tablet by ity of tablet 00:00: mouth at [place] 00 bedtime. Medical Branch lisinopriL 0 Yes [id number] 10mg Take 1 U nivers 10 mg 9-18 tablet by ity of tablet 00:00: mouth in [place] 00 the Medical morning. Branch clopidogreL 0 Yes [id number] 75mg Take 1 Univers (PLAVIX) 75 9-18 tablet by ity of mg tablet 00:00: [place] 00 the Medical morning. Branch clopidogreL 2022-0 Yes [id number] 75mg 75 mg, Univers (PLAVIX) 75 8-12 Oral, ity of mg tablet 14:00: DAILY, [place] 75 mg 00 First dose Medical on [facility] 06/26/23 at 0900, Until Discontinu ed, Routine clopidogreL 2022- No [id number] 75mg 75 mg, Univers (PLAVIX) 75 8-12 08-12 Oral, ity of mg tablet 14:00: 01:21 DAILY, [place] 75 mg 00 :12 First dose Medical on [facility] 06/26/23 at 0900, Until Discontinu ed, Routine clopidogreL 2022- No [id number] 75mg 75 mg, Univers (PLAVIX) 75 06-26 Oral, ity of mg tablet 14:00: 01:21 DAILY, [place] 75 mg 00 :12 First dose Medical on [facility] 06/26/23 at 0900, Until Discontinu ed, Routine apixaban Yes 2.5mg 2.5 mg, Unive rs (ELIQUIS) 06-26 Oral, BID, ity of tablet 2.5 01:00: [place] 00 on [facility] 06/25/23 at [place] 1999, Until Discontinu ed, Routine
Indicatio ns: Non-Valvul ar Atrial Fibrillati on apixaban 2022-0 2022- No 2.5mg 2.5 mg, Univ ers (ELIQUIS) 06-26 Oral, BID, ity of tablet 2.5 01:00: 01:21 First dose [place] mg 00 :12 on [facility] 06/25/23 at [place] 1999, Until Discontinu ed, Routine
Indicatio ns: Non-Valvul ar Atrial Fibrillati on apixaban 2022-0 2022- No 2.5mg 2.5 mg, Univ ers (ELIQUIS) 06-26 Oral, BID, ity of tablet 2.5 01:00: 01:21 First dose [place] mg 00 :12 on [facility] 06/25/23 at [place] 1999, Until Discontinu ed, Routine
Indicatio ns: Non-Valvul ar Atrial Fibrillati on clopidogreL 2022-0 2022- No [id number] 75mg Take 1 Univers 75 mg 06-26 tablet by ity of tablet 00:00: 04:59 mouth in [place] 00 :00 the [facility] for 30 days. clopidogreL 2022-0 2022- No [id number] 75mg Take 1 Univers 75 mg 06-26 tablet by ity of tablet 00:00: 04:59 mouth in [place] 00 :00 the [facility] for 30 days. clopidogreL 2022-0 2022- No [id number] 75mg Take 1 Univers 75 mg 06-26 tablet by ity of tablet 00:00: 04:59 mouth in [place] 00 :00 the Medical morning Branch for 30 days. clopidogreL 2022-0 3- No [id number] 75mg Take 1 Univers 75 mg 8-12 09-12 tablet by ity of tablet 00:00: 04:59 mouth in [place] 00 :00 the Medical morning Branch for 30 days. lidocaine 2022-0 3- No [id number] .3mL 0.3 mL, Univers 1% (PF) 06-25 Infiltrati ity o f (XYLOCAINE) 20:00: 20:23 on, [place] injection 00 :00 DIALYSIS Medica l 0.3 mL ONCE - PT Branch ROOM, 1 dose, On Wed06/25/23 at 1500, Routine sodium 3-0 Yes 650mg Take 1 Univers bicarbonate 8-11 tablet by ity of 650 mg 18:20: mouth in [place] tablet 43 the Medical morning Branch and 1 tablet at noon and 1 tablet in the evening. Take with meals. apixaban 2022-0 Yes 2.5mg Take 1 Univer s 2.5 mg 8-11 tablet by ity of tablet 18:20: mouth in [place] 43 the Medical morning Branch and 1 tablet in the evening. metoprolol 2022-0 Yes 50mg Take 50 mg U nivers succinate 8-11 by mouth ity of XL 50 mg 24 18:20: in the [facility] hr tablet 43 morning Medical and 50 mg Branch in the evening. Cholecalcif 2022-0 Yes 1{tbl} Take 1 Un karla alyssa, 8-11 tablet by ity of Vitamin D3, 18:20: [place] (VITAMIN 43 the Medical D3) 125 mcg morning. Bran ch (5,000 unit) tablet SITagliptin 3-0 Yes 50mg Take 1 Univ ers phosphate 8-11 tablet by ity o f (JANUVIA) 18:20: mouth in [facility] 50 mg 43 the Medical tablet morning. Branch Vitamin 2023-0 Yes 1000ug Take 1 Univer s B-12 1,000 8-11 tablet by ity of mcg tablet 18:20: mouth in [facility] 43 the Medical morning. Branch amLODIPine 2023-0 Yes 5mg Take 1 Unive rs 5 mg tablet 8-11 tablet by ity of 18:20: mouth in [place] 43 the Medical morning. Branch sodium 2023-0 Yes 650mg Take 1 Univers bicarbonate 8-11 tablet by ity of 650 mg 18:20: mouth in [place] tablet 43 the Medical morning Branch and 1 tablet at noon and 1 tablet in the evening. Take with meals. apixaban 2023-0 Yes 2.5mg Take 1 Univer s 2.5 mg 8-11 tablet by ity of tablet 18:20: mouth in [place] 43 the Medical morning Branch and 1 tablet in the evening. metoprolol 2023-0 Yes 50mg Take 50 mg U nivers succinate 8-11 by mouth ity of XL 50 mg 24 18:20: [place] hr tablet 43 morning Medical and 50 mg Branch in the evening. Cholecalcif 2023-0 Yes 1{tbl} Take 1 Un karla alyssa, 8-11 tablet by ity of Vitamin D3, 18:20: [place] (VITAMIN 43 the Medical D3) 125 mcg morning. Bran ch (5,000 unit) tablet SITagliptin 2023-0 Yes 50mg Take 1 Univ ers phosphate 8-11 tablet by ity o f (JANUVIA) 18:20: mouth in [facility] s 50 mg 43 the Medical tablet morning. Branch Vitamin 2023-0 Yes 1000ug Take 1 Univer s B-12 1,000 8-11 tablet by ity of mcg tablet 18:20: mouth in [facility] 43 the Medical morning. Branch amLODIPine 2023-0 Yes 5mg Take 1 Unive rs 5 mg tablet 8-11 tablet by ity of 18:20: mouth in [place] [address] the Medical morning. Branch sodium 2023-0 Yes 650mg Take 1 Univers bicarbonate 8-11 tablet by ity of 650 mg 18:20: mouth in [place] tablet 43 the Medical morning Branch and 1 tablet at noon and 1 tablet in the evening. Take with meals. apixaban 2023-0 Yes 2.5mg Take 1 Univer s 2.5 mg 8-11 tablet by ity of tablet 18:20: mouth in [place] 43 the Medical morning Branch and 1 tablet in the evening. metoprolol 2023-0 Yes 50mg Take 50 mg U nivers succinate 8-11 by mouth ity of XL 50 mg 24 18:20: [place] tablet 43 morning Medical and 50 mg Branch in the evening. Cholecalcif 2023-0 Yes 1{tbl} Take 1 Un karla alyssa, 8-11 tablet by ity of Vitamin D3, 18:20: [place] (VITAMIN 43 the Medical D3) 125 mcg morning. Bran ch (5,000 unit) tablet SITagliptin 2023-0 Yes 50mg Take 1 Univ ers phosphate 8-11 tablet by ity o f (JANUVIA) 18:20: [place] 50 mg 43 the Medical tablet morning. Branch Vitamin 2023-0 Yes 1000ug Take 1 Univer s B-12 1,000 8-11 tablet by ity of mcg tablet 18:20: mouth in [place] 43 the Medical morning. Branch amLODIPine 2023-0 Yes 5mg Take 1 Unive rs 5 mg tablet 8-11 tablet by ity of 18:20: mouth in [place] 43 the Medical morning. Branch sodium 2023-0 Yes 650mg Take 1 Univers bicarbonate 8-11 tablet by ity of 650 mg 18:20: mouth in [place] tablet 43 the Medical morning Branch and 1 tablet at noon and 1 tablet in the evening. Take with meals. apixaban 2023-0 Yes 2.5mg Take 1 Univer s 2.5 mg 8-11 tablet by ity of tablet 18:20: mouth in [place] 43 the Medical morning Branch and 1 tablet in the evening. metoprolol 2023-0 Yes 50mg Take 50 mg U nivers succinate 8-11 by mouth ity of XL 50 mg 24 18:20: in the [facility] hr tablet 43 morning Medical and 50 mg Branch in the evening. Cholecalcif 2023-0 Yes 1{tbl} Take 1 Un karla alyssa, 8-11 tablet by ity of Vitamin D3, 18:20: [place] (VITAMIN 43 the Medical D3) 125 mcg morning. Bran ch (5,000 unit) tablet SITagliptin 2023-0 Yes 50mg Take 1 Univ ers phosphate 8-11 tablet by ity o f (JANUVIA) 18:20: [place] 50 mg 43 the Medical tablet morning. Branch Vitamin 2023-0 Yes 1000ug Take 1 Univer s B-12 1,000 8-11 tablet by ity of mcg tablet 18:20: mouth in [place] 43 the Medical morning. Branch amLODIPine 2023-0 Yes 5mg Take 1 Unive rs 5 mg tablet 8-11 tablet by ity of 18:20: mouth in [place] 43 the Medical morning. Branch sodium 2023-0 Yes 650mg Take 1 Univers bicarbonate 8-11 tablet by ity of 650 mg 18:20: mouth in [place] tablet 43 the Medical morning Branch and 1 tablet at noon and 1 tablet in the evening. Take with meals. apixaban 2023-0 Yes 2.5mg Take 1 Univer s 2.5 mg 8-11 tablet by ity of tablet 18:20: mouth in [place] 43 the Medical morning Branch and 1 tablet in the evening. metoprolol 2023-0 Yes 50mg Take 50 mg U nivers succinate 8-11 by mouth ity of XL 50 mg 24 18:20: in the [facility] hr tablet 43 morning Medical and 50 mg Branch in the evening. Cholecalcif 2023-0 Yes 1{tbl} Take 1 Un karla alyssa, 8-11 tablet by ity of Vitamin D3, 18:20: [place] (VITAMIN 43 the Medical D3) 125 mcg morning. Bran ch (5,000 unit) tablet SITagliptin 2023-0 Yes 50mg Take 1 Univ ers phosphate 8-11 tablet by ity o f (JANUVIA) 18:20: mouth in [facility] 50 mg 43 the Medical tablet morning. Branch Vitamin 2023-0 Yes 1000ug Take 1 Univer s B-12 1,000 8-11 tablet by ity of mcg tablet 18:20: mouth in [facility] 43 the Medical morning. Branch amLODIPine 2023-0 Yes 5mg Take 1 Unive rs 5 mg tablet 8-11 tablet by ity of 18:20: mouth in [place] [address] the Medical morning. Branch sodium 2023-0 Yes 650mg Take 1 Univers bicarbonate 8-11 tablet by ity of 650 mg 18:20: mouth in [place] tablet 43 the Medical morning Branch and 1 tablet at noon and 1 tablet in the evening. Take with meals. apixaban 2023-0 Yes 2.5mg Take 1 Univer s 2.5 mg 8-11 tablet by ity of tablet 18:20: mouth in [place] 43 the Medical morning Branch and 1 tablet in the evening. Cholecalcif 2023-0 Yes 1{tbl} Take 1 Un karla alyssa, 8-11 tablet by ity of Vitamin D3, 18:20: [place] (VITAMIN 43 the Medical D3) 125 mcg morning. Bran ch (5,000 unit) tablet SITagliptin 2023-0 Yes 50mg Take 1 Univ ers phosphate 8-11 tablet by ity o f (JANUVIA) 18:20: [place] 50 mg 43 the Medical tablet morning. Branch Vitamin 2023-0 Yes 1000ug Take 1 Univer s B-12 1,000 8-11 tablet by ity of mcg tablet 18:20: mouth in [place] 43 the Medical morning. Branch amLODIPine 2023-0 Yes 5mg Take 1 Unive rs 5 mg tablet 8-11 tablet by ity of 18:20: mouth in [place] 43 the Medical morning. Branch sodium 2023-0 Yes 650mg Take 1 Univers bicarbonate 8-11 tablet by ity of 650 mg 18:20: mouth in [place] tablet 43 the Medical morning Branch and 1 tablet at noon and 1 tablet in the evening. Take with meals. apixaban 2023-0 Yes 2.5mg Take 1 Univer s 2.5 mg 8-11 tablet by ity of tablet 18:20: mouth in [place] 43 the Medical morning Branch and 1 tablet in the evening. Cholecalcif 2023-0 Yes 1{tbl} Take 1 Un karla alyssa, 8-11 tablet by ity of Vitamin D3, 18:20: mouth in [place] (VITAMIN 43 the Medical D3) 125 mcg morning. Bran ch (5,000 unit) tablet SITagliptin 2023-0 Yes 50mg Take 1 Univ ers phosphate 8-11 tablet by ity o f (JANUVIA) 18:20: [place] mg 43 the Medical tablet morning. Branch Vitamin 2023-0 Yes 1000ug Take 1 Univer s B-12 1,000 8-11 tablet by ity of mcg tablet 18:20: mouth in [place] 43 the Medical morning. Branch amLODIPine 2023-0 Yes 5mg Take 1 Unive rs 5 mg tablet 8-11 tablet by ity of 18:20: mouth in [place] 43 the Medical morning. Branch sodium 2023-0 Yes 650mg Take 1 Univers bicarbonate 8-11 tablet by ity of 650 mg 18:20: mouth in [place] tablet 43 the Medical morning Branch and 1 tablet at noon and 1 tablet in the evening. Take with meals. apixaban 2023-0 Yes 2.5mg Take 1 Univer s 2.5 mg 8-11 tablet by ity of tablet 18:20: mouth in [place] 43 the Medical morning Branch and 1 tablet in the evening. Cholecalcif 2023-0 Yes 1{tbl} Take 1 Un karla alyssa, 8-11 tablet by ity of Vitamin D3, 18:20: mouth in [place] (VITAMIN 43 the Medical D3) 125 mcg morning. Bran ch (5,000 unit) tablet SITagliptin 2023-0 Yes 50mg Take 1 Univ ers phosphate 8-11 tablet by ity o f (JANUVIA) 18:20: mouth in [place] 43 the Medical tablet morning. Branch Vitamin 2023-0 Yes 1000ug Take 1 Univer s B-12 1,000 8-11 tablet by ity of mcg tablet 18:20: mouth in [place] 43 the Medical morning. Branch amLODIPine 2023-0 Yes 5mg Take 1 Unive rs 5 mg tablet 8-11 tablet by ity of 18:20: mouth in [place] 43 the Medical morning. Branch sodium 2023-0 Yes 650mg Take 1 Univers bicarbonate 8-11 tablet by ity of 650 mg 18:20: mouth in [place] tablet 43 the Medical morning Branch and 1 tablet at noon and 1 tablet in the evening. Take with meals. apixaban 2023-0 Yes 2.5mg Take 1 Univer s 2.5 mg 8-11 tablet by ity of tablet 18:20: mouth in [place] 43 the Medical morning Branch and 1 tablet in the evening. Cholecalcif 2023-0 Yes 1{tbl} Take 1 Un karla alyssa, 8-11 tablet by ity of Vitamin D3, 18:20: mouth in [place] (VITAMIN 43 the Medical D3) 125 mcg morning. Bran ch (5,000 unit) tablet SITagliptin 2023-0 Yes 50mg Take 1 Univ ers phosphate 8-11 tablet by ity o f (JANUVIA) 18:20: mouth in [place] 50 [place] 43 the Medical tablet morning. Branch Vitamin 2023-0 Yes 1000ug Take 1 Univer s B-12 1,000 8-11 tablet by ity of mcg tablet 18:20: mouth in [place] 43 the Medical morning. Branch amLODIPine 2023-0 Yes 5mg Take 1 Unive rs 5 mg tablet 8-11 tablet by ity of 18:20: mouth in [place] 43 the Medical morning. Branch sodium 2023-0 Yes 650mg Take 1 Univers bicarbonate 8-11 tablet by ity of 650 mg 18:20: mouth in [place] tablet 43 the Medical morning Branch and 1 tablet at noon and 1 tablet in the evening. Take with meals. sodium 2023-0 Yes 650mg Take 1 Univers bicarbonate 8-11 tablet by ity of 650 mg 18:20: mouth in [place] tablet 43 the Medical morning Branch and 1 tablet at noon and 1 tablet in the evening. Take with meals. sodium 2023-0 Yes 650mg Take 1 Univers bicarbonate 8-11 tablet by ity of 650 mg 18:20: mouth in [place] tablet 43 the Medical morning Branch and 1 tablet at noon and 1 tablet in the evening. Take with meals. apixaban 2023-0 Yes 2.5mg Take 1 Univer s 2.5 mg 8-11 tablet by ity of tablet 18:20: mouth in [place] 43 the Medical morning Branch and 1 tablet in the evening. Cholecalcif 2023-0 Yes 1{tbl} Take 1 Un karla alyssa, 8-11 tablet by ity of Vitamin D3, 18:20: mouth in [place] (VITAMIN 43 the Medical D3) 125 mcg morning. Bran ch (5,000 unit) tablet SITagliptin 2023-0 Yes 50mg Take 1 Univ ers phosphate 8-11 tablet by ity o f (JANUVIA) 18:20: [place] 43 the Medical tablet morning. Branch Vitamin 2023-0 Yes 1000ug Take 1 Univer s B-12 1,000 8-11 tablet by ity of mcg tablet 18:20: mouth in [place] 43 the Medical morning. Branch amLODIPine 2023-0 Yes 5mg Take 1 Unive rs 5 mg tablet 8-11 tablet by ity of 18:20: mouth in [place] 43 the Medical morning. Branch sodium 2023-0 Yes 650mg Take 1 Univers bicarbonate 8-11 tablet by ity of 650 mg 18:20: mouth in [place] tablet 43 the Medical morning Branch and 1 tablet at noon and 1 tablet in the evening. Take with meals. apixaban 2023-0 Yes 2.5mg Take 1 Univer s 2.5 mg 8-11 tablet by ity of tablet 18:20: mouth in [place] 43 the Medical morning Branch and 1 tablet in the evening. Cholecalcif 2022-0 Yes 1{tbl} Take 1 Un karla alyssa, 8-11 tablet by ity of Vitamin D3, 18:20: [place] (VITAMIN 43 the Medical D3) 125 mcg morning. Bran ch (5,000 unit) tablet SITagliptin 2022-0 Yes 50mg Take 1 Univ ers phosphate 8-11 tablet by ity o f (JANUVIA) 18:20: mouth in [facility] s 50 mg 43 the Medical tablet morning. Branch Vitamin 3-0 Yes 1000ug Take 1 Univer s B-12 1,000 8-11 tablet by ity of mcg tablet 18:20: mouth in [facility] 43 the Medical morning. Branch amLODIPine 2022-0 Yes 5mg Take 1 Unive rs 5 mg tablet 8-11 tablet by ity of 18:20: mouth in [place] [id number] the Medical morning. Branch clopidogreL 2022-0 2022- No [id number] 300mg 300 mg, Univers (PLAVIX) 06-25 Oral, ity of 300 mg 14:00: 13:49 ONCE, 1 [place] tablet 300 00 :00 dose, On Medic al mg Fri Branch 06/25/23 at 0900, Routine sevelamer 2022-0 2022- No 800mg Take 1 Univ ers 800 mg 06-25 tablet by ity of tablet 13:30: 00:00 mouth in [place] 19 :00 the Medical morning Branch and 1 tablet at noon and 1 tablet in the evening. Take with meals. sevelamer 2022-0 2022- No 800mg Take 1 Univ ers 800 mg 06-25 tablet by ity of tablet 13:30: 00:00 mouth in [place] 19 :00 the Medical morning Branch and 1 tablet at noon and 1 tablet in the evening. Take with meals. sevelamer 2022-0 2022- No 800mg Take 1 Univ ers 800 mg 06-25 tablet by ity of tablet 13:30: 00:00 mouth in [place] 19 :00 the Medical morning Branch and 1 tablet at noon and 1 tablet in the evening. Take with meals. ticagrelor 2022-0 2022- No [id number] 90mg 90 mg, Univers (BRILINTA) 06-25 Oral, BID, it y of tablet 90 01:00: 00:59 2 doses, [place] mg 00 :00 First dose Medical on [place] [facility] 06/24/23 at 2000, Last dose on 06/25/23 at 0800, Routine, CV Recovery to Floor sevelamer 2022-0 2022- No [id number] 1600mg Take 2 Univers 800 mg 06-25 tablets by ity of tablet 00:00: 04:59 mouth in [place] 00 :00 the [facility] morning Branch and 2 tablets at noon and 2 tablets in the evening. Take with meals. Do all this for 30 days. amiodarone 2022-2022- No [id number] 200mg Take 1 Univers 200 mg 06-25 tablet by ity of tablet 00:00: 04:59 mouth in [place] 00 :00 the [facility] morning Branch and 1 tablet at noon and 1 tablet in the evening. Do all this for 30 days. atorvastati 2022-2022- No [id number] 40mg Take 1 Univers n 40 mg 06-25 tablet by ity of tablet 00:00: 04:59 mouth at [place] 00 :00 bedtime Medical for 30 Branch days. ticagrelor 2022- No [id number] 90mg Take 1 Univers 90 mg 06-25 tablet by ity of tablet 00:00: 04:59 mouth in [place] 00 :00 the [facility] and 1 tablet in the evening. Do all this for 30 days. sevelamer 2022-0 2022- No [id number] 1600mg Take 2 Univers 800 mg 06-25 tablets by ity of tablet 00:00: 04:59 mouth in [place] 00 :00 the [facility] morning Branch and 2 tablets at noon and 2 tablets in the evening. Take with meals. Do all this for 30 days. amiodarone 2022-2022- No [id number] 200mg Take 1 Univers 200 mg 06-25 tablet by ity of tablet 00:00: 04:59 mouth in [place] 00 :00 the [facility] morning [place] and 1 tablet at noon and 1 tablet in the evening. Do all this for 30 days. atorvastati 2022-2022- No [id number] 40mg Take 1 Univers n 40 mg 8-11 09-11 tablet by ity of tablet 00:00: 04:59 mouth at [place] 00 :00 bedtime Medical for 30 Branch days. ticagrelor 3-0 2022- No [id number] 90mg Take 1 Univers 90 mg 8-09 23- tablet by ity of tablet 00:00: 04:59 mouth in [place] 00 :00 the Medical morning Branch and 1 tablet in the evening. Do all this for 30 days. sevelamer 2022-0 2022- No [id number] 1600mg Take 2 Univers 800 mg 8-09 23- tablets by ity of tablet 00:00: 04:59 mouth in [place] 00 :00 the Medical morning Branch and 2 tablets at noon and 2 tablets in the evening. Take with meals. Do all this for 30 days. amiodarone 2022-0 2022- No [id number] 200mg Take 1 Univers 200 mg 8- tablet by ity of tablet 00:00: 04:59 mouth in [place] 00 :00 the Medical morning Branch and 1 tablet at noon and 1 tablet in the evening. Do all this for 30 days. atorvastati 2022-0 2022- No [id number] 40mg Take 1 Univers n 40 mg 06-25 tablet by ity of tablet 00:00: 04:59 mouth at [place] 00 :00 bedtime Medical for 30 Branch days. ticagrelor 2022-0 2022- No [id number] 90mg Take 1 Univers 90 mg 8- tablet by ity of tablet 00:00: 04:59 mouth in [place] 00 :00 the Medical morning Branch and 1 tablet in the evening. Do all this for 30 days. sevelamer 2022-0 2022- No [id number] 1600mg Take 2 Univers 800 mg 8-09 23- tablets by ity of tablet 00:00: 04:59 mouth in [place] 00 :00 the Medical morning Branch and 2 tablets at noon and 2 tablets in the evening. Take with meals. Do all this for 30 days. amiodarone 2022-0 2022- No [id number] 200mg Take 1 Univers 200 mg 8-09 23-11 tablet by ity of tablet 00:00: 04:59 mouth in [place] 00 :00 the Medical morning Branch and 1 tablet at noon and 1 tablet in the evening. Do all this for 30 days. atorvastati 2022- No [id number] 40mg Take 1 Univers n 40 mg 06-25 tablet by ity of tablet 00:00: 04:59 mouth at [place] 00 :00 bedtime Medical for 30 Branch days. ticagrelor 2022- No [id number] 90mg Take 1 Univers 90 mg 06-25 tablet by ity of tablet 00:00: 04:59 mouth in [place] 00 :00 the Medical morning Branch and 1 tablet in the evening. Do all this for 30 days. iopamidol 2022- No ONCE INTRA U nivers (ISOVUE 06-24 PROCEDURE, ity o f 370-500 mL) 17:13: 17:22 Starting [place] injection 36 :04 on [facility] 06/24/23 at Branch 1213, Until [facility] 06/24/23 at 1222, Routine, CV Intraproce dure iopamidol 2022- No ONCE INTRA U nivers (ISOVUE 06-24 PROCEDURE, ity o f 370-500 mL) 17:13: 17:22 Starting [place] injection 36 :04 on [facility] 06/24/23 at Branch 1213, Until [facility] 06/24/23 at 1222, Routine, CV Intraproce dure ticagrelor 2022- No ONCE INTRA Univers (BRILINTA) 06-24 PROCEDURE, it y of tablet 17:10: 17:22 Starting [place] 56 :04 on [facility] 06/24/23 at Branch 1210, Until [facility] 06/24/23 at 1222, Routine, CV Intraproce dure ticagrelor 2022- No ONCE INTRA Univers (BRILINTA) 06-24 PROCEDURE, it y of tablet 17:10: 17:22 Starting [place] 56 :04 on [facility] 06/24/23 at Branch 1210, Until [facility] 06/24/23 at 1222, Routine, CV Intraproce dure adenosine 6 2022- No ONCE INTRA Univers mg/1000 mL 06-24 PROCEDURE, it y of INTRACORONA 17:07: 17:22 [place] R[place] 39 :04 on [facility] Medical injection 06/24/23 at [facility] for CATH 1207, LAB Until [place] 06/24/23 at 1222, Routine, CV Intraproce dure adenosine 6 2022-2022- No ONCE INTRA Univers mg/1000 mL 06-24 PROCEDURE, it y of INTRACORONA 17:07: 17:22 Starting [place] R[place] 39 :04 on [place] [facility] injection 06/24/23 at [facility] for CATH 1207, LAB Until [place] 06/24/23 at 1222, Routine, CV Intraproce dure nitroglycer 2022-2022- No ONCE INTRA Univers in (TRIDIL) 06-24 PROCEDURE, i ty of 2 mg in 10 17:07: 17:22 [place] mL D5W for 20 :04 on [place] [facility] Cardiac 06/24/23 at Branch Cath 1207, Until [place] 06/24/23 at 1222, Routine, CV Intraproce dure nitroglycer 2022-0 2022- No ONCE INTRA Univers in (TRIDIL) 06-24 PROCEDURE, i ty of 2 mg in 10 17:07: 17:22 [place] mL D5W for 20 :04 on [place] [facility]iac 06/24/23 at Branch Cath 1207, Until [place] 06/24/23 at 1222, Routine, CV Intraproce dure heparin 2022-0 2022- No ONCE INTRA Uni vers 1,000 06-24 PROCEDURE, ity of unit/mL 16:22: 17:22 Starting [place] injection 01 :04 on [facility] 06/24/23 at Branch 1122, Until [place] 06/24/23 at 1222, Routine, CV Intraproce dure heparin 2022-0 2022- No ONCE INTRA Uni vers 1,000 06-24 PROCEDURE, ity of unit/mL 16:22: 17:22 Starting [place] injection 01 :04 on [facility] 06/24/23 at Branch 1122, Until [place] 06/24/23 at 1222, Routine, CV Intraproce dure lidocaine 3-0 2022- No ONCE INTRA U nivers 1% (PF) 06-24 PROCEDURE, ity o f (XYLOCAINE) 16:00: 17:22 Starting [place] injection 33 :04 on [facility] 06/24/23 at Branch 1100, Until [place] 06/24/23 at 1222, Routine, CV Intraproce dure lidocaine 2022- No ONCE INTRA U nivers 1% (PF) 06-24 PROCEDURE, ity o f (XYLOCAINE) 16:00: 17:22 Starting [place] injection 33 :04 on [facility] 06/24/23 at Branch 1100, Until [facility] 06/24/23 at 1222, Routine, CV Intraproce dure FENTanyl PF 2022- No ONCE INTRA Univers (SUBLIMAZE 06-24 PROCEDURE, it y of (PF)) 15:55: 17:22 Starting [place] injection 45 :04 on [facility] 06/24/23 at Branch 1055, Until [facility] 06/24/23 at 1222, Routine, CV Intraproce dure FENTanyl PF 2022- No ONCE INTRA Univers (SUBLIMAZE 06-24 PROCEDURE, it y of (PF)) 15:55: 17:22 Starting [place] injection 45 :04 on [facility] 06/24/23 at Branch 1055, Until [facility] 06/24/23 at 1222, Routine, CV Intraproce dure midazolam 2022- No ONCE INTRA U nivers (VERSED) 06-24 PROCEDURE, ity of injection 15:55: 17:22 Starting [place] 29 :04 on [facility] 06/24/23 at Branch 1055, Until [facility] 06/24/23 at 1222, Routine, CV Intraproce dure midazolam 2022- No ONCE INTRA U nivers (VERSED) 06-24 PROCEDURE, ity of injection 15:55: 17:22 Starting [place] 29 :04 on [facility] 06/24/23 at Branch 1055, Until [facility] 06/24/23 at 1222, Routine, CV Intraproce dure Sliding Yes Subcutaneo Univ ers Scale 8- us, TID ity of Insulin - 02:00: MEALS+HS, [place] Lispro 00 First dose Medical (HumaLOG) on Wed Branch 06/23/23 at 2100, Until Discontinu ed, Routine amLODIPine Yes 5mg 5 mg, Univer s ([facility]) 8-10 Oral, QHS, ity of tablet 5 mg 02:00: First dose [place] 00 on Wed [facility] 06/23/23 at [place] 2100, Until Discontinu ed, Routine Sliding 202- No Subcutaneo Uni vers Scale 06-24 us, TID ity of Insulin - 02:00: 01:21 MEALS+HS, [place] Lispro 00 :12 First dose Medical (HumaLOG) on Wed [place] 06/23/23 at 2100, Until Discontinu ed, Routine amLODIPine 2022- No 5mg 5 mg, Unive rs ([facility]) 06-24 Oral, QHS, ity of tablet 5 mg 02:00: 01:21 First dose [place] 00 :12 on Wed [facility] 06/23/23 at Branch 2100, Until Discontinu ed, Routine Sliding 2022- No Subcutaneo Uni vers Scale 06-24 , TID ity of Insulin - 02:00: 01:21 MEALS+HS, [place] Lispro 00 :12 First dose Medical (HumaLOG) on Wed [place] 06/23/23 at 2100, Until Discontinu ed, Routine amLODIPine 2022- No 5mg 5 mg, Unive rs ([facility]) 06-24 Oral, QHS, ity of tablet 5 mg 02:00: 01:21 First dose [place] 00 :12 on [facility] 06/23/23 at [place] 2100, Until Discontinu ed, Routine glucagon Yes 1mg 1 mg, Univers (GLUCAGEN 06-24 Intramuscu ity of DIAGNOSTIC 00:45: [place], PRN, [place] KIT) 42 Starting Medical injection 1 on Wed [facility] 06/23/23 at 1945, Until Discontinu ed, BRIA, Blood Glucose < or = 70 mg/dL and patient is NPO, unable to swallow or has mental changes. glucagon 2022- No 1mg 1 mg, Univers (GLUCAGEN 06-24 Intramuscu ity of DIAGNOSTIC 00:45: 01:21 [place], PRN, [place] KIT) 42 :12 Starting Medical injection 1 on [facility] 06/23/23 at 1945, Until Wed06/25/23 at 2020, BRIA, Blood Glucose < or = 70 mg/dL and patient is NPO, unable to swallow or has mental changes. glucagon 2022- No 1mg 1 mg, Univers (GLUCAGEN 06-24 Intramuscu ity of DIAGNOSTIC 00:45: 01:21 lar, PRN, [place] KIT) 42 :12 Starting Medical injection 1 on Wed Branch mg 06/23/23 at 1945, Until Wed06/25/23 at 2020, BRIA, Blood Glucose < or = 70 mg/dL and patient is NPO, unable to swallow or has mental changes. sevelamer Yes 1600mg 1,600 mg, U nivers (RENVELA) 06-23 Oral, TID ity o f tablet 17:00: MEALS, [place] 1,600 mg 00 First dose Medic al (after Branch last modificati on) on Wed06/23/23 at 1200, Until Discontinu ed, Routine sevelamer 2022- No 1600mg 1,600 mg, Univers (RENVELA) 06-23 Oral, TID ity of tablet 17:00: 01:21 MEALS, [place] 1,600 mg 00 :12 First dose Medic al (after Branch last modificati on) on Wed06/23/23 at 1200, Until Discontinu ed, Routine sevelamer 2022- No 1600mg 1,600 mg, Univers (RENVELA) 06-23 Oral, TID ity of tablet 17:00: 01:21 MEALS, [place] 1,600 mg 00 :12 First dose Medic al (after Branch last modificati on) on Wed06/23/23 at 1200, Until Discontinu ed, Routine lidocaine 2022- No [id number] .3mL 0.3 mL, Univers 1% (PF) 06-23 Subcutaneo ity o f (XYLOCAINE) 14:15: 13:35 us, ONCE, [place] injection 00 :00 1 dose, On Medi byron 0.3 mL Wed06/23/23 Branch at 0915, Routine aspirin EC 2022- No 81mg 81 mg, Univ ers tablet 81 06-23 Oral, ity of mg 14:00: 17:12 DAILY, [place] 00 :02 First dose Medical on Wed06/23/23 at 0900, Until Discontinu ed, Routine SITagliptin 2022- No 25mg 25 mg, Uni vers phosphate 06-23 Oral, ity of (JANUVIA) 14:00: 00:45 DAILY, [place] tablet 25 00 :04 First dose Medi byron mg (after Branch last modificati on) on Wed06/23/23 at 0900, Until Discontinu ed, Routine atorvastati Yes 40mg 40 mg, Univ ers n (LIPITOR) 06-23 Oral, QHS, it y of tablet 40 02:00: First dose [place] mg 00 on [facility] 06/22/23 at [place] 2100, Until Discontinu ed, Routine atorvastati 2022- No 40mg 40 mg, Uni vers n (LIPITOR) 06-23 Oral, QHS, i ty of tablet 40 02:00: 01:21 First dose [place] mg 00 :12 on [facility] 06/22/23 at Branch 2100, Until Discontinu ed, Routine atorvastati 2022- No 40mg 40 mg, Uni vers n (LIPITOR) 06-23 Oral, QHS, i ty of tablet 40 02:00: 01:21 First dose [place] mg 00 :12 on [facility] 06/22/23 at Branch 2100, Until Discontinu ed, Routine amiodarone 2022- No 200mg 200 mg, Un karla (PACERONE) 06-23 Oral, TID, it y of tablet 200 01:00: 00:59 21 doses, [place] mg 00 :00 First dose Medical on [place] 06/22/23 at 2000, Last dose on Wed06/29/23 at 1400, Routine amiodarone 2022- No 200mg 200 mg, Un karla (PACERONE) 06-23 Oral, TID, it y of tablet 200 01:00: 01:21 21 doses, [place] mg 00 :12 First dose Medical on [place] 06/22/23 at 2000, Last dose on Wed06/29/23 at 1400, Routine amiodarone 2022- No 200mg 200 mg, Un karla (PACERONE) 06-23 Oral, TID, it y of tablet 200 01:00: 01:21 21 doses, [place] mg 00 :12 First dose Medical on Wed Branch 06/22/23 at 2000, Last dose on Wed06/29/23 at 1400, Routine aspirin 2022- No 325mg 325 mg, Unive rs tablet 325 06-23 Oral, ity of mg 00:00: 00:33 ONCE, 1 [place] 00 :00 dose, On Medical Wed06/22/23 Branch at 1900, Routine heparin 2022- No 0U/h 0-2,050 Univer s 25,000 06-22 08-10 Units/hr ity of Units/250 23:11: 18:21 (0-20.5 [place] mL 13 :49 mL/hr), IV Medical (Premixed Infusion, Branc h Bag) in TITRATE, 0.45 % NS Parameters in Admin. Instr., Starting on Wed06/22/23 at 1811
In itiate dosing:&nb sp; & nbsp;&nbsp ; -Patient 73 kg or under: 900 Units/hr (Calculate d dose at 18 units/kg/h r) &n bsp; &nbs p; -Patient over 73 k,300 units/hr&n bsp;DO NOT Exceed the MAXIMUM 1,300 units/hr for initiation of heparin drip.&nbsp ; CAU TION - If LMWH given in ER, AVOID bolus and start next dose/drip 24 hrs after ER dosage.&nb sp; M ust program rate using programmab le infusion pump.&nbsp ; Ann ck with the ordering provider first prior to any administra tion should the patient be on existing/a dditional anticoagul ant therapy. Rang e, Dosing and Testing: DO NOT ADJUST INITIAL BOLUS OR INITIAL INFUSION RATE.&nbsp ; _ &nb sp;FOR [facility], [facility], AND [facility] CAMPUSES ONLY &nbs p; - aPTT < 35: & nbsp;Bolus 5000 units, increase rate 300 units/hr&n bsp; - aPTT 35-44:&nbs p; William silvia 3000 units, increase rate 200 units/hr&n bsp; - aPTT 45-54:&nbs p; In crease rate 100 units/hr&n bsp; - aPTT 55-85:&nbs p; NO CHANGE&nbs p; - aPTT 86-95:&nbs p; De crease rate 100 units/hr&n bsp; - aPTT 96-120:&nb sp; H old 30 minutes, decrease rate 150 units/hr&n bsp; - aPTT > 120: Hold 60 minutes, decrease rate 200 units/hr&n bsp; Check aPTT 6 hours after initiation , then Q6H after every change, aPTT Q12H once therapeuti c levels are reached.&n bsp; &nbs p; __ &n bsp;FOR [facility] ONLY - aPTT < 40: & nbsp;Bolus 5000 units, increase rate 300 units/hr&n bsp; - aPTT 40-49:&nbs p; William silvia 3000 units, increase rate 200 units/hr&n bsp; - aPTT 50-59:&nbs p; In crease rate 100 units/hr&n bsp; - aPTT 60-85:&nbs p; NO CHANGE&nbs p; - aPTT 86-95:&nbs p;&nbs p;Decrease rate 100 units/hr&n bsp; - aPTT 96-120:&nb sp; H old 30 minutes, decrease rate 150 units/hr&n bsp; - aPTT > 120: Hold 60 minutes, decrease rate 200 units/hr&n bsp; Check aPTT 6 hours after initiation , then Q6H after every change, aPTT Q12H once therapeuti c levels are reached.<b r> vitamin 2022-0 Yes 1000ug 1,000 mcg, Un karla B-12 06-22 Oral, ity of (CYANOCOBAL 14:00: DAILY, [place] SESAY) 00 First dose Medical tablet on [facility] 1,000 mcg 06/22/23 at 0900, Until Discontinu ed, Routine vitamin 2022- No 1000ug 1,000 mcg, U nivers B-12 06-22 Oral, ity of (CYANOCOBAL 14:00: 01:21 DAILY, [place] SESAY) 00 :12 First dose Medical tablet on [facility] 1,000 mcg 06/22/23 at 0900, Until Discontinu ed, Routine vitamin 2022-0 2022- No 1000ug 1,000 mcg, U nivers B-12 06-22 Oral, ity of (CYANOCOBAL 14:00: 01:21 DAILY, [place] SESAY) 00 :12 First dose Medical tablet on [facility] 1,000 mcg 06/22/23 at 0900, Until Discontinu ed, Routine SITagliptin 0 2022- No 50mg 50 mg, Uni vers phosphate 06-22 Oral, ity of (JANUVIA) 14:00: 15:51 DAILY, [place] tablet 50 00 :02 First dose Medi byron mg on [facility] Branch 06/22/23 at 0900, Until Discontinu ed, Routine metoprolol Yes 50mg 50 mg, Unive rs succinate 06-22 Oral, BID, ity of XL (TOPROL 13:00: First dose [place] XL) tablet 00 on Tue Medical 50 mg 06/22/23 at Branch 0800, Until Discontinu ed, Routine metoprolol 2022- No 50mg 50 mg, [facility] ers succinate 06-22 Oral, BID, ity of XL (TOPROL 13:00: 01:21 First dose [place] XL) tablet 00 :12 on [facility] Medical 50 mg 06/22/23 at Branch 0800, Until Discontinu ed, Routine metoprolol 2022- No 50mg 50 mg, [facility] ers succinate 06-22 Oral, BID, ity of XL (TOPROL 13:00: 01:21 First dose [place] XL) tablet 00 :12 on [facility] Medical 50 mg 06/22/23 at Branch 0800, Until Discontinu ed, Routine sodium 2022- No 650mg 650 mg, [facility] s bicarbonate 06-22 Oral, TID it y of (ANTACID 13:00: 15:59 MEALS, [place] (SODIUM 00 :13 First dose Medica l BICARBONATE on [place] )) tablet 06/22/23 at 650 mg 0800, Until Discontinu ed, Routine sevelamer 2022- No 800mg 800 mg, Uni vers (RENVELA) 06-22 Oral, TID ity of tablet 800 13:00: 16:00 MEALS, [place] mg 00 :19 First dose Medical on [facility] 06/22/23 at 0800, Until Discontinu ed, Routine apixaban 2022- No 2.5mg 2.5 mg, [facility] ers (ELIQUIS) 06-22 Oral, BID, ity of tablet 2.5 13:00: 23:11 First dose [place] mg 00 :42 on [facility] Medical 06/22/23 at Branch 0800, Until Discontinu ed, Routine
Indicatio ns: Non-Valvul ar Atrial Fibrillati on ondansetron Yes 4mg 4 mg, Slow Univers (ZOFRAN 06-22 IV Push, ity of (PF)) 12:25: Q6HPRN, [place] injection 4 16 Starting Medi byron mg on [facility] 06/22/23 at 0725, Until Discontinu ed, Routine, Nausea and Vomiting (N/V) ondansetron 2023-0 2022- No 4mg 4 mg, Slow Univers (ZOFRAN 06-22 IV Push, ity of (PF)) 12:25: 01:21 Q6HPRN, [place] injection 4 16 :12 Starting Medi byron mg on Wed Branch 06/22/23 at 0725, Until Wed06/25/23 at 2020, Routine, Nausea and Vomiting (N/V) ondansetron 2022-0 2022- No 4mg 4 mg, Slow Univers (ZOFRAN 06-22 IV Push, ity of (PF)) 12:25: 01:21 Q6HPRN, [place] injection 4 16 :12 Starting Medi [place] mg on Wed Branch 06/22/23 at 0725, Until Wed06/25/23 at 2020, Routine, Nausea and Vomiting (N/V) NaCl 0.9% 2022- No 500mL at 999 Univ ers (NS) bolus 06-21 mL/hr, 500 it y of infusion 23:15: 00:04 mL, IV [place] 500 mL 00 :00 Infusion, Medical ONCE, 1 Branch dose, On Wed06/21/23 at 1815, STAT metoprolol 2022- No 2.5mg 2.5 mg, Un karla (LOPRESSOR) 06-21 Slow IV ity of injection 23:00: 00:05 Push, [place] 2.5 mg 00 :00 ONCE, 1 Medical dose, On Branch Wed06/21/23 at 1800, BRIA lidocaine-p 2022-0 2023- No Apply Meth kyler rilocaine 06-[address] (EMLA) 00:00: 04:59 as needed Hospi ta 2.5-2.5 % 00 :00 for mild l cream pain for up to 364 days. Apply to area 30-45 minutes prior to dialysis treatment. docusate 2022-0 Yes 100mg 100 mg, Unive rs (COLACE) 06-05 Oral, ity of capsule 100 14:00: DAILY, [place] mg 00 First dose Medical on [facility] Branch 06/05/23 at 0900, Until Discontinu ed, Routine ondansetron 2022-0 Yes 4mg 4 mg, Slow Univers (ZOFRAN 06-05 IV Push, ity of (PF)) 02:52: Q6HPRN, [place] injection 4 19 Starting Medi byron mg on Fri Branch 06/04/23 at 2152, Until Discontinu ed, Routine, Nausea and Vomiting (N/V) morpHINE (2 2022- No 2mg 2 mg, Slow Univers mg/mL) 06-05 IV Push, ity of injection 2 02:52: 02:51 Q4HPRN, [place] mg 01 :01 Starting Medical on Fri Branch 06/04/23 at 2152, Until 06/05/23 at 215, Routine, Pain (scale 7-10) HYDROcodone 2022- No 1{tbl} 1 tablet, Univers -acetaminop 06-05 Oral, ity of hen (NORCO 02:51: 02:50 Q6HPRN, [place] 5) 5-325 mg 57 :57 Starting Medi byron tablet 1 on Wed Branch tablet 06/04/23 at 215, Until 06/06/23 at 2150, Routine, Pain (scale 4-6) acetaminoph Yes 650mg 650 mg, [place] en 06-05 Oral, ity of (TYLENOL) 02:51: Q6HPRN, [place] tablet 650 52 Starting Medic al mg on Wed Branch 06/04/23 at 215, Until Discontinu ed, Routine, Pain (scale 1-3) metoprolol 2022- No 50mg 50 mg, Univ ers tartrate 06-05 Oral, ity of (LOPRESSOR) 02:00: 01:06 ONCE, 1 [place] tablet 50 00 :00 dose, On Medica l mg Fri Branch 06/04/23 at 2100, Routine NaCl 0.9% 2022- No 500mL at 999 Univ ers (NS) bolus 06-05 mL/hr, 500 it y of infusion 01:45: 01:36 mL, IV [place] 500 mL 00 :00 Piggyback, Medical ONCE, 1 Branch dose, On 06/04/23 at 2045, STAT diltiazem 2022- No 15mg 15 mg, IV Un [place] (CARDIZEM 06-05 Push, ity of IV) 01:15: 01:06 ONCE, 1 [place] injection 00 :00 dose, On Medica l 15 mg Fri Branch 06/04/23 at 2015, STAT
Fa culty member approving Restricted medication : MAGALIS BARONE diltiazem 2022- No 10mg 10 mg, IV Un [place] (CARDIZEM 06-04 Push, ity of IV) 23:45: 23:52 ONCE, 1 [place] injection 00 :00 dose, On Medica l 10 mg Fri Branch 06/04/23 at 1845, STAT
Fa culty member approving Restricted medication : MAGALIS BARONE acetaminoph Yes 325mg Q6H Take 1 Met hodi en 6-[address] (TYLENOL) 15:06: (325 mg Hospi ta 325 MG 09 total) by l tablet mouth every 6 (six) hours as needed for fever. cholecalcif Yes Take by Met hodi alyssa, 6-[address] vitamin D3, 15:06: Hospit a (VITAMIN D3 09 l ORAL) calcium Yes QD Chew 1 Methodi carbonate 6-[address] (TUMS) 200 15:06: (500 mg of H ospita mg calcium 09 Calcium l (500 mg) Carbonate chewable total) tablet daily. losartan Yes 50mg 50 mg, Univers (COZAAR) 2-15 Oral, QHS, ity o f tablet 50 03:00: First dose [place] mg 00 on Wed Medical 12/29/22 at Branch 2100, Until Discontinu ed, Routine levoFLOXaci 2022- No 250mg 250 mg, U nivers n 2-14 02-19 Oral, Q24H ity of (LEVAQUIN) 23:00: 22:59 ABX, 5 [place] tablet 250 00 :00 doses, Medical mg First dose Branch (after last modificati on) on Wed12/29/22 at 1700, Last dose on Wed01/02/23 at 1700, BRIA
Re ason for Anti-Infec tive: Empiric Therapy for Suspected Infection< br>Empiric Therapy Site: Respirator y
Durat ion of therapy: 72 hours sodium 2022-0 Yes 650mg Take 650 Univer s bicarbonate 2-14 mg by ity of 650 mg 15:54: mouth in [place] tablet 43 the Medical morning Branch and 650 mg at noon and 650 mg in the evening. Take with meals. apixaban 2023-0 Yes 2.5mg Take 2.5 Univ ers 2.5 mg 2-14 mg by ity of tablet 15:54: mouth 2 [place] [address] (two) Medical times Branch daily. sevelamer 2023-0 Yes 800mg Take 800 Uni vers 800 mg 2-14 mg by ity of tablet 15:54: mouth in [place] 43 the Medical morning Branch and 800 mg at noon and 800 mg in the evening. Take with meals. metoprolol 2023-0 Yes 50mg Take 50 mg U nivers succinate 2-14 by mouth ity of XL 50 mg 24 15:54: in the [facility] s hr tablet 43 morning Medical and 50 mg Branch in the evening. Cholecalcif 2023-0 Yes 1{tbl} Take 1 Un [place] alyssa, 2-14 tablet by ity of Vitamin D3, 15:54: [place] (VITAMIN 43 the Medical D3) 125 mcg morning. Bran ch (5,000 unit) tablet SITagliptin 3-0 Yes 50mg Take 50 mg Univers phosphate 2-14 by mouth ity of (JANUVIA) 15:54: in the [place] 50 mg 43 morning. Medical tablet Branch Vitamin 2023-0 Yes 1000ug Take 1,000 Un karla B-12 1,000 2-14 mcg by ity of mcg tablet 15:54: mouth in [facility] 43 the Medical morning. Branch amLODIPine 2023-0 Yes 5mg Take 5 mg Un [place] 5 mg tablet 2-14 by mouth ity of 15:54: in the [place] 43 morning. Medical Branch sodium 2023-0 Yes 650mg Take 650 Univer s bicarbonate 2-14 mg by ity of 650 mg 15:54: mouth in [place] tablet 43 the Medical morning Branch and 650 mg at noon and 650 mg in the evening. Take with meals. apixaban 2023-0 Yes 2.5mg Take 2.5 Univ ers 2.5 mg 2-14 mg by ity of tablet 15:54: mouth 2 [place] [address] (two) Medical times Branch daily. sevelamer 2023-0 Yes 800mg Take 800 Uni vers 800 mg 2-14 mg by ity of tablet 15:54: mouth in [place] 43 the Medical morning Branch and 800 mg at noon and 800 mg in the evening. Take with meals. metoprolol 2023-0 Yes 50mg Take 50 mg U nivers succinate 2-14 by mouth ity of XL 50 mg 24 15:54: in the [facility] s hr tablet 43 morning Medical and 50 mg Branch in the evening. Cholecalcif 2023-0 Yes 1{tbl} Take 1 Un karla alyssa, 2-14 tablet by ity of Vitamin D3, 15:54: [place] (VITAMIN 43 the Medical D3) 125 mcg morning. Bran ch (5,000 unit) tablet SITagliptin 2023-0 Yes 50mg Take 50 mg Univers phosphate 2-14 by mouth ity of (JANUVIA) 15:54: in the [place] 50 mg 43 morning. Medical tablet Branch Vitamin 2023-0 Yes 1000ug Take 1,000 Un karla B-12 1,000 2-14 mcg by ity of mcg tablet 15:54: mouth in [facility] 43 the Medical morning. Branch amLODIPine 2023-0 Yes 5mg Take 5 mg Un [place] 5 mg tablet 2-14 by mouth ity of 15:54: in the [place] [address] morning. Medical Branch sodium 2023-0 Yes 650mg Take 650 Univer s bicarbonate 2-14 mg by ity of 650 mg 15:54: mouth in [facility] 43 the Medical morning Branch and 650 mg at noon and 650 mg in the evening. Take with meals. apixaban 2023-0 Yes 2.5mg Take 2.5 Univ ers 2.5 mg 2-14 mg by ity of tablet 15:54: mouth 2 [place] [address] (two) Medical times Branch daily. sevelamer 2023-0 Yes 800mg Take 800 Uni vers 800 mg 2-14 mg by ity of tablet 15:54: mouth in [place] [address] the Medical morning Branch and 800 mg at noon and 800 mg in the evening. Take with meals. metoprolol 2023-0 Yes 50mg Take 50 mg U nivers succinate 2-14 by mouth ity of XL 50 mg 24 15:54: in the [facility] s hr tablet 43 morning Medical and 50 mg Branch in the evening. Cholecalcif 2023-0 Yes 1{tbl} Take 1 Un kar[place] alyssa, 2-14 tablet by ity of Vitamin D3, 15:54: [place] (VITAMIN 43 the Medical D3) 125 mcg morning. Bran ch (5,000 unit) tablet SITagliptin 2023-0 Yes 50mg Take 50 mg Univers phosphate 2-14 by mouth ity of (JANUVIA) 15:54: in the [place] 50 mg 43 morning. Medical tablet Branch Vitamin 2023-0 Yes 1000ug Take 1,000 Un karla B-12 1,000 2-14 mcg by ity of mcg tablet 15:54: mouth in [facility] 43 the Medical morning. Branch amLODIPine 2023-0 Yes 5mg Take 5 mg Un karla 5 mg tablet 2-14 by mouth ity of 15:54: in the [place] 43 morning. Medical Branch sodium 2023-0 Yes 650mg Take 650 Univer s bicarbonate 2-14 mg by ity of 650 mg 15:54: mouth in [facility] 43 the Medical morning Branch and 650 mg at noon and 650 mg in the evening. Take with meals. apixaban 3-0 Yes 2.5mg Take 2.5 Univ ers 2.5 mg 2-14 mg by ity of tablet 15:54: mouth 2 [place] [address] (two) Medical times Branch daily. sevelamer 2023-0 Yes 800mg Take 800 Uni vers 800 mg 2-14 mg by ity of tablet 15:54: mouth in [place] [address] the Medical morning Branch and 800 mg at noon and 800 mg in the evening. Take with meals. metoprolol 2023-0 Yes 50mg Take 50 mg U nivers succinate 2-14 by mouth ity of XL 50 mg 24 15:54: in the [facility] s hr tablet 43 morning Medical and 50 mg Branch in the evening. Cholecalcif 2023-0 Yes 1{tbl} Take 1 Un [place] alyssa, 2-14 tablet by ity of Vitamin D3, 15:54: [place] (VITAMIN 43 the Medical D3) 125 mcg morning. Bran ch (5,000 unit) tablet SITagliptin 2023-0 Yes 50mg Take 50 mg Univers phosphate 2-14 by mouth ity of (JANUVIA) 15:54: in the [place] 50 mg 43 morning. Medical tablet Branch Vitamin 2023-0 Yes 1000ug Take 1,000 Un karla B-12 1,000 2-14 mcg by ity of mcg tablet 15:54: mouth in [place] 43 the Medical morning. Branch amLODIPine 0 Yes 5mg Take 5 mg Un karla 5 mg tablet 2-14 by mouth ity of 15:54: in the 43 morning. Medical Branch ipratropium 2022-0 Yes .5mg 0.5 mg, Uni vers (ATROVENT) 2-14 Inhalation ity of 0.02 % 02:00: , QID, [place] nebulizer 00 First dose Medi byron solution on Wed Branch 0.5 mg 12/28/22 at 2000, Until Discontinu ed, Routine albuterol 2022-0 Yes 2.5mg 2.5 mg, Univ ers (PROVENTIL) 2-14 Inhalation it y of 2.5 mg /3 02:00: , QID, [place] mL (0.083 00 First dose Medi byron %) on Wed Branch nebulizer 12/28/22 at solution 1999, 2.5 mg Until Discontinu ed, Routine lidocaine 2022- No [id number] .3mL 0.3 mL, Univers 1% (PF) 12-29 Infiltrati ity o f (XYLOCAINE) 00:15: 23:25 on, [place] injection 00 :00 DIALYSIS Medica l 0.3 mL ONCE - PT Branch ROOM, 1 dose, On Wed12/28/22 at 1815, Routine losartan 50 2022-2022- No [id number] 50mg Take 1 Univers mg tablet 12-29 tablet by ity of 00:00: 04:59 mouth at [place] 00 :00 bedtime Medical for 30 Branch days. losartan 50 2022-0 2022- No [id number] 50mg Take 1 Univers mg tablet 12-29-17 tablet by ity of 00:00: 04:59 mouth at [place] 00 :00 bedtime Medical for 30 Branch days. levoFLOXaci 2022-2022- No [id number] 250mg Take 1 Univers n 250 mg 12-29 tablet by ity o f tablet 00:00: 05:59 mouth [place] 00 :00 every 24 Medical (twenty- Branch ur) hours for 6 days. levoFLOXaci 2022-0 2022- No [id number] 250mg Take 1 Univers n 250 mg -21 tablet by ity o f tablet 00:00: 05:59 mouth [place] 00 :00 every 24 Medical ([facility] ur) hours for 6 days. vitamin 2022-0 Yes 1000ug 1,000 mcg, Un karla B-12 2-13 Oral, ity of (CYANOCOBAL 15:00: DAILY, [place] SESAY) 00 First dose Medical tablet on Wed 1,000 mcg 12/28/22 at 0900, Until Discontinu ed, Routine SITagliptin 2022-0 Yes 50mg 50 mg, [facility] ers phosphate 2-13 Oral, ity of (JANUVIA) 15:00: DAILY, [place] tablet 50 00 First dose Medi byron mg on [facility] 12/28/22 at 0900, Until Discontinu ed, Routine cholecalcif 2022-0 Yes 5000U 5,000 Univ ers alyssa 2-13 Units, ity of (vitamin 15:00: Oral, [place] D3) tablet 00 DAILY, Medical 5,000 Units First dose Br anch on [facility] 12/28/22 at 0900, Until Discontinu ed amLODIPine 2022-0 Yes 5mg 5 mg, Univer s (NORVASC) 2-13 Oral, ity of tablet 5 mg 15:00: DAILY, [place] 00 First dose Medical on [facility] 12/28/22 at 0900, Until Discontinu ed, Routine sevelamer 2022-0 Yes 800mg 800 mg, Univ ers (RENVELA) 2-13 Oral, TID ity o f tablet 800 14:00: MEALS, [place] mg 00 First dose Medical on [facility] 12/28/22 at 0800, Until Discontinu ed, Routine metoprolol 2022-0 Yes 50mg 50 mg, Unive rs succinate 2-13 Oral, BID, ity of XL (TOPROL 14:00: First dose [place] XL) tablet 00 on [facility] 50 mg 12/28/22 at Branch 0800, Until Discontinu ed, Routine apixaban 2022-0 Yes 2.5mg 2.5 mg, Unive rs (ELIQUIS) 2-13 Oral, BID, ity of tablet 2.5 14:00: First dose [place] mg 00 on [facility] 12/28/22 at Branch 0800, Until Discontinu ed, Routine
Indicatio ns: Non-Valvul ar Atrial Fibrillati on ipratropium 2022- No 3mL 3 mL, Univ ers -albuteroL 12-28 Inhalation it y of (DUONEB) 14:00: 21:40 , QID, [place] 0.5 mg-3 00 :42 First dose Medic al mg(2.5 mg on [facility] base)/3 mL 12/28/22 at nebulizer 0800, solution 3 Until mL Discontinu ed, Routine sodium No 650mg 650 mg, Univer s bicarbonate 12-28 Oral, TID it y of (ANTACID 14:00: 15:22 MEALS, [place] (SODIUM 00 :57 First dose Medica l BICARBONATE on Wed )) tablet 12/28/22 at 650 mg 0800, Until Discontinu ed, Routine ipratropium Yes 3mL 3 mL, Unive rs -albuteroL 12-28 Inhalation ity of (DUONEB) 09:56: , QIDPRN, [place] 0.5 mg-3 21 Starting Medical mg(2.5 mg on [facility] base)/3 mL 12/28/22 at nebulizer 0356, solution 3 Until mL Discontinu ed, Routine, Wheezing, Shortness of Breath, Bronchospa sm, Chest tightness levoFLOXaci No 750mg 750 mg, IV Univers n in D5W 12-28 Piggyback, ity of (LEVAQUIN) 08:00: 09:35 ONCE, 1 [place] 750 mg/150 00 :00 dose, On Medic al mL Wed [place] Piggyback 12/28/22 at 750 mg 0200, Administer over 90 Minutes, 150 mL
R swapna for Anti-Infec tive: Empiric Therapy for Suspected Infection< br>Empiric Therapy Site: Urine
D uration of therapy: 72 hours traMADoL 2022- No 50mg 50 mg, Univer s (ULTRAM) 12-28 Oral, ity of tablet 50 07:48: 07:47 Q8HPRN, [place] mg 15 :15 Starting Medical on Wed Branch 12/28/22 at 0148, Until Wed12/30/22 at 0147, Routine, Pain (scale 4-6) acetaminoph Yes 650mg 650 mg, Un karla en 12-28 Oral, ity of (TYLENOL) 07:48: Q6HPRN, [place] tablet 650 11 Starting Medic al mg on Mon Branch 12/28/22 at 0148, Until Discontinu ed, Routine, Pain (scale 1-3) ipratropium 0 2022- No .5mg 0.5 mg, Un karla (ATROVENT) 12-28 Inhalation it y of 0.02 % 05:45: 06:15 , ONCE, 1 [place] nebulizer 00 :00 dose, On Medica l solution [place] Branch 0.5 mg 12/27/22 at 2345, BRIA albuterol 2022- No 2.5mg 2.5 mg, Uni vers (PROVENTIL) 12-28 Inhalation i ty of 2.5 mg /3 05:45: 06:15 , ONCE, 1 [place] mL (0.083 00 :00 dose, On Medica l %) [place] Branch nebulizer 12/27/22 at solution 2345, STAT 2.5 mg calcium 2022-2022- No 500mg Take 500 Univ ers carbonate 12-28 mg by ity of 500 mg 03:31: 00:00 mouth 2 [place] calcium 00 :00 (two) Medical (1,250 mg) times Branch tablet daily with meals. lidocaine-p 2021-11- No Apply Meth [place] rilocaine 12-21 08-[address] (EMLA) 00:00: 00:00 as needed Hospi ta 2.5-2.5 % 00 :00 for mild l cream pain for up to 364 days. Apply to area 30-45 minutes prior to dialysis treatment. apixaban 2021-0 Yes 2.5mg Take 2.5 Univ ers (ELIQUIS) 7-10 mg by ity of 2.5 mg 03:55: mouth 2 [place] tablet 03 (two) Medical times Branch daily. calcium 2021-0 Yes 500mg Take 500 Unive rs carbonate 7-10 mg by ity of 500 mg 03:55: mouth 2 [place] calcium 03 (two) Medical (1,250 mg) times Branch tablet daily with meals. sevelamer Yes 800mg Take 800 Uni vers (RENVELA) 7-10 mg by ity of 800 mg 03:55: mouth 2 [place] tablet 03 (two) Medical times Branch daily. amLODIPine 2021- No [id number] 5mg Take 1 Univers 5 mg tablet 05-23 tablet by it y of 00:00: 04:59 mouth [place] 00 :00 daily for Medical 30 days. Branch calcitrioL 2021- No [id number] .5ug Take 1 Univers 0.5 mcg 05-23 capsule by ity o f capsule 00:00: 04:59 mouth [place] 00 :00 daily for Medical 30 days. Branch vitamin 2021- No [id number] 1000ug Take 1 Univers B-12 1,000 05-23 tablet by ity of mcg tablet 00:00: 04:59 mouth [place] 00 :00 daily for Medical 30 days. Branch amLODIPine 2021- No [id number] 5mg Take 1 Univers 5 mg tablet 05-23 tablet by it y of 00:00: 04:59 mouth [place] 00 :00 daily for Medical 30 days. Branch calcitrioL 2021- No [id number] .5ug Take 1 Univers 0.5 mcg 05-23 capsule by ity o f capsule 00:00: 04:59 mouth [place] 00 :00 daily for Medical 30 days. [place] vitamin 2021- No [id number] 1000ug Take 1 Univers B-12 1,000 05-23 tablet by ity of mcg tablet 00:00: 04:59 mouth [place] 00 :00 daily for Medical 30 days. Branch zinc 2021- No [id number] 50mg Take 1 Unive rs sulfate 50 05-23 capsule by it y of mg zinc 00:00: 04:59 mouth [place] (220 mg) 00 :00 daily for Medica l capsule 6 days. Branch ascorbic 2021- No [id number] 500mg Take 1 Univers acid, 05-23 tablet by ity of vitamin C, 00:00: 04:59 mouth [place] 500 mg 00 :00 daily for Medical tablet 6 days. Branch cholecalcif 2021- No [id number] 1000U Take 1 Univers alyssa, 05-23 tablet by ity of vitamin D3, 00:00: 04:59 mouth [place] 25 mcg 00 :00 daily for Medical (1,000 6 days. Branch unit) tablet zinc 2021- No [id number] 50mg Take 1 Unive rs sulfate 50 05-23 capsule by it y of mg zinc 00:00: 04:59 mouth [place] (220 mg) 00 :00 daily for Medica l capsule 6 days. Branch ascorbic 2021- No [id number] 500mg Take 1 Univers acid, 05-23 tablet by ity of vitamin C, 00:00: 04:59 mouth [place] 500 mg 00 :00 daily for Medical tablet 6 days. Branch cholecalcif 2021- No [id number] 1000U Take 1 Univers alyssa, 05-23 tablet by ity of vitamin D3, 00:00: 04:59 mouth [place] 25 mcg 00 :00 daily for Medical (1,000 6 days. Branch unit) tablet dexAMETHaso 2021- No [id number] 6mg Take 1 Univers ne 6 mg 05-23 tablet by ity of tablet 00:00: 04:59 mouth [place] 00 :00 daily for Medical 5 days. Branch dexAMETHaso 2021- No [id number] 6mg Take 1 Univers ne 6 mg 05-23 tablet by ity of tablet 00:00: 04:59 mouth [place] 00 :00 daily for Medical 5 days. Branch sodium Yes 650mg Take 650 Univer s bicarbonate 7-08 mg by ity of 650 mg 15:55: mouth 2 [place] tablet 24 (two) Medical times Branch daily. apixaban Yes 2.5mg Take 2.5 Univ ers (ELIQUIS) 7-08 mg by ity of 2.5 mg 15:55: mouth 2 [place] tablet 24 (two) Medical times Branch daily. calcium 2021-0 Yes 500mg Take 500 Unive rs carbonate 7-08 mg by ity of 500 mg 15:55: mouth 2 [place] calcium 24 (two) Medical (1,250 mg) times Branch tablet daily with meals. sevelamer 2022-0 Yes 800mg Take 800 Uni vers (RENVELA) 7-08 mg by ity of 800 mg 15:55: mouth 2 [place] tablet 24 (two) Medical times Branch daily. sodium Yes 650mg Take 650 Univer s bicarbonate 7-08 mg by ity of 650 mg 15:55: mouth 2 [place] tablet 24 (two) Medical times Branch daily. metoprolol 2021- No 50mg Take 50 mg Univers succinate 05-22-08 by mouth 2 ity of XL (TOPROL 13:30: 00:00 (two) [place] XL) 50 mg 00 :00 times Medical 24 hr daily. Branch tablet epoetin 2021- No [id number] 10,000 Unive rs august-epbx 05-22-08 Units, ity of (RETACRIT) 01:00: 01:00 Subcutaneo [place] injection 00 :00 us, ONCE Medica l 10,000 AT 2000, 1 Branch Units dose, On Wed05/21/22 at 1999, Routine
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 loperamide Yes [id number] 2mg Take 1 Univers 2 mg 7-08 capsule by ity of capsule 00:00: mouth [place] 00 every 4 Medical (four) Branch hours as needed for Diarrhea. loperamide 2022- No [id number] 2mg Take 1 Univers 2 mg 7-08 02-14 capsule by ity of capsule 00:00: 00:00 mouth [place] 00 :00 every 4 Medical (four) Branch hours as needed for Diarrhea. SITagliptin 2021- No [id number] 25mg Take 1 Univers 25 mg 7-08 08-08 tablet by ity of tablet 00:00: 04:59 mouth [place] 00 :00 daily for Medical 30 days. Branch SITagliptin 2021- No [id number] 25mg Take 1 Univers 25 mg 7-08 08-08 tablet by ity of tablet 00:00: 04:59 mouth [place] 00 :00 daily for Medical 30 days. Branch amoxicillin 2021- No [id number] 500mg Take 1 Univers -pot 05-22 tablet by ity of clavulanate 00:00: 04:59 mouth 2 [place] 500 mg 00 :00 (two) Medical 500-125 mg times Branch tablet daily for 3 days. amoxicillin 2021-2021- No [id number] 500mg Take 1 Univers -pot 05-22 tablet by ity of clavulanate 00:00: 04:59 mouth 2 [place] 500 mg 00 :00 (two) Medical 500-125 mg times Branch tablet daily for 3 days. amoxicillin 2021- No 500mg 500 mg, U nivers -pot 05-21 Oral, BID, ity of clavulanate 18:45: 12:59 8 doses, [place] 500 mg 00 :00 First dose Medical (AUGMENTIN on [place] Branch 500) 05/21/22 at 500-125 mg 1345, Last tablet 500 dose on mg 05/24/22 at 2000, BRIA
Reason for Anti-Infec tive: Documented Infection< br>Documen radames Infection Site: Respirator y
Durat ion of Therapy: 7 days dexAMETHaso 2021- No 6mg 6 mg, Univ ers ne 05-21 Oral, ity of (DECADRON) 15:30: 13:59 DAILY, 7 [place] tablet 6 mg 00 :00 doses, Medica l First dose Branch on Wed05/21/22 at 1030, Last dose on Wed05/27/22 at 0900, Routine cyanocobala 2021- No 1000ug 1,000 mcg, Univers min 05-21 Subcutaneo ity of (VITAMIN 14:00: 13:59 us, DAILY, [place] B12) 00 :00 7 doses, Medical injection First dose Bran ch 1,000 mcg on Wed05/21/22 at 0900, Last dose on Wed05/27/22 at 0900, Routine lactobacill Yes .5mg 0.5 mg, Uni vers us 05-20 Oral, BID, ity of acidophilus 19:30: First dose [place] tablet 0.5 00 on Wed Medical mg 05/20/22 at Branch 1430, Until Discontinu ed, Routine vitamin 2021-0 Yes 1000ug 1,000 mcg, Un karla B-12 05-20 Oral, ity of (CYANOCOBAL 14:00: DAILY, [place] SESAY) 00 First dose Medical tablet on Wed 1,000 mcg 05/20/22 at 0900, Until Discontinu ed, Routine heparin 2021-0 Yes 2000U PRN - SEE Univ ers 1,000 05-20 INSTRUCTIO ity of unit/mL 12:00: NS, [place] injection 00 Starting Medica l 2,000 Units on Wed Branch 05/20/22 at 0700, Until Discontinu ed, Routine
For Priming of Ports:&nbs p; &n bsp; After initial saline flush, prime each port with heparin according to the priming volume listed on each catheter port for catheter lock.
cyanocobala 2021- No 1000ug 1,000 mcg, Univers min 05-19-05 Intramuscu ity of (VITAMIN 22:30: 23:47 [place], ONCE, [place] B12) 00 :00 1 dose, On Medical injection Wed05/19/22 Bran ch 1,000 mcg at 1730, Routine amLODIPine Yes 5mg 5 mg, Univer s (NORVASC) 05-19 Oral, ity of tablet 5 mg 21:45: DAILY, [place] 00 First dose Medical on Wed05/19/22 at 1645, Until Discontinu ed, Routine heparin 2021-0 2- No [id number] 3200U 3,200 Un karla 1,000 05-19 07-05 Units, ity of unit/mL 15:45: 16:37 Slow IV [place] injection 00 :00 Push, Medical 3,200 Units DIALYSIS Bran ch ONCE - PT ROOM, 1 dose, On Wed05/19/22 at 1045, Routine calcitrioL Yes .5ug 0.5 mcg, Uni vers (ROCALTROL) 05-19 Oral, ity of capsule 0.5 14:00: DAILY, [place] mcg 00 First dose Medical on Wed05/19/22 at 0900, Until Discontinu ed, Routine magnesium 2022-0 Yes 400mg 400 mg, Univ ers oxide 05-19 Oral, ity of (MAG-OX 14:00: DAILY, [place] 400) tablet 00 First dose Me dical 400 mg on Wed05/19/22 at 0900, Until Discontinu ed, Routine zinc Yes 50mg 50 mg, Univers sulfate 05-19 Oral, ity of (ORAZINC) 14:00: DAILY, [place] capsule 50 00 First dose Med ical mg on Wed05/19/22 at 0900, Until Discontinu ed, Routine ascorbic Yes 500mg 500 [facility], [facility] acid 05-19 Oral, ity of (vitamin C) 14:00: DAILY, [place] (VITAMIN C) 00 First dose Me dical tablet 500 on Wed mg 05/19/22 at 0900, Until Discontinu ed, Routine cholecalcif Yes 1000U 1,000 [facility] alyssa 05-19 Units, ity of (vitamin 14:00: Oral, [place] D3) tablet 00 DAILY, Medical 1,000 Units First dose Br anch on Wed05/19/22 at 0900, Until Discontinu ed, Routine ampicillin- 0 202- No 3g 3 g, IV Un karla sulbactam 05-19 07-07 Piggyback, ity of (UNASYN) 3 03:00: 18:43 Q12H ABX, [place] g in NaCl 00 :05 14 doses, Medic al 0.9% (NS) First dose Bran ch 100 mL on Wed MINI-BAG 05/18/22 at 2200, Last dose on Wed05/25/22 at 1000, Administer over 30 Minutes, 100 mL
Reas on for Anti-Infec tive: Empiric Therapy for Suspected Infection< br>Empiric Therapy Site: Respirator y
Durat ion of therapy: 7 days sevelamer 2021-0 Yes 800mg 800 mg, [facility] ers (RENVELA) 05-19 Oral, BID, ity of tablet 800 01:00: First dose [place] mg 00 on [facility] Medical 05/18/22 at Branch 2000, Until Discontinu ed, Routine apixaban 0 Yes 2.5mg 2.5 mg, [facility] (ELIQUIS) 05-19 Oral, BID, ity of tablet 2.5 01:00: First dose [place] mg 00 on [facility] Medical 05/18/22 at Branch 1999, Until Discontinu ed, Routine
Indicatio ns: Non-Valvul ar Atrial Fibrillati on sodium 2021- No 650mg 650 mg, Univer s bicarbonate 05-19 Oral, BID, i ty of (ANTACID 01:00: 12:22 First dose [place] (SODIUM 00 :51 on [facility] BICARBONATE 05/18/22 at [facility] )) tablet 2000, 650 mg Until Discontinu ed, Routine Sliding Yes Subcutaneo Univ ers Scale 05-18 us, TID ity of Insulin - 22:00: MEALS+HS, [place] Lispro 00 First dose Medical (HumaLOG) + on [facility] 05/18/22 at Testing 1700, Until Discontinu ed, Routine loperamide Yes 2mg 2 mg, Univer s (IMODIUM 05-18 Oral, ity of A-D) 20:58: Q4HPRN, [place] capsule 2 12 Starting Medica l mg on [facility] 05/18/22 at 1558, Until Discontinu ed, Routine, Diarrhea NaCl 0.9% Yes 10mL 10 mL, Univer s (NS) 05-18 Slow IV ity of injection 19:56: Push, PRN, [place] 10 mL 48 Starting Medical on [facility] 05/18/22 at 1456, Until Discontinu ed, Routine, line maintenanc e lidocaine Yes 5mL 5 mL, Univers 1% (PF) 05-18 Subcutaneo ity of (XYLOCAINE) 19:56: us, PRN, [place] injection 5 48 Starting Medi byron mL on [facility] 05/18/22 at 1456, Until Discontinu ed, Routine, Local anesthesia mupirocin Yes Nasal, Univer s (BACTROBAN 05-18 Q12H, For ity of NASAL OINT) 18:46: 5 days, [place] 2 % nasal 45 First dose Medi byron ointment conditiona Branc h l, Routine dexamethaso 2021- No 6mg 6 mg, Slow Univers ne 05-18 07-07 IV Push, ity of (DECADRON 17:30: 15:29 DAILY, [place] PH[place]ATE[place] 00 :51 doses, Medical injection 6 First dose Br anch mg on Wed05/18/22 at 1230, Last dose on Wed05/27/22 at 0900, Routine codeine-gua 2021-0 Yes 10mL 10 mL, [facility] ers ifenesin 05-18 Oral, ity of (ROBITUSSIN 17:17: Q6HPRN, [place] AC) 10-100 11 Starting Medic al mg/5 mL on Wed oral 05/18/22 at solution 10 1217, mL Until Discontinu ed, Routine, Cough ipratropium 2021-0 Yes 2{puff} 2 Puff, Univers (ATROVENT 05-18 Inhalation ity of HFA) 17:17: , [place], [place] inhaler 2 06 Starting Medica l Puff on Wed05/18/22 at 1217, Until Discontinu ed, Routine, Shortness of Breath, Wheezing, Bronchospa sm, Chest tightness< br>Is this order for a patient with suspected or confirmed COVID-19 infection? Yes albuterol 2021-0 Yes 2{puff} 2 Puff, [facility] (VENTOLIN) 05-18 Inhalation ity of inhaler 2 17:17: , Q6HPRN, Vick as Puff 04 Starting Medical on Wed05/18/22 at 1217, Until Discontinu ed, Routine, Wheezing, Shortness of Breath, Bronchospa sm, Chest tightness acetaminoph 2021-0 Yes 650mg 650 mg, [facility] en 05-18 Oral, ity of (TYLENOL) 17:17: Q6HPRNH[place], [place] tablet 650 02 Starting Medic al mg on Wed05/18/22 at 1217, Until Discontinu ed, Routine, Temp > 38.5 C glucagon 2021-0 Yes 1mg 1 mg, Univers (GLUCAGEN 05-18 Intramuscu ity of DIAGNOSTIC 17:15: [place], PRN, [place] KIT) 20 Starting Medical injection 1 on Wed mg 05/18/22 at 1215, Until Discontinu ed, BRIA, Blood Glucose < or = 70 mg/dL and patient is unable to swallow or has mental changes. dextrose Yes 250mL 250 mL, IV [facility] 10% (D10W) 05-18 Infusion, ity of bolus 17:15: PRN - SEE [place] infusion 20 INSTRUCTIO Medic al 250 mL NS, Branch Administer over 60 Minutes, BS < 70, Starting on Wed05/18/22 at 1215
De xtrose 10% 250 mL bag contains:& nbsp;10 gm = 100 mL 20 gm = 200 mL 25 gm = 250 mL (whole bag) The maximum rate at which dextrose can be infused without producing glycosuria is 0.5 g/kg/hour. &nbs p;BUD: If wrapper is open bag is good for 30 days at room temperatur e. <b r> azithromyci 2021- No 500mg 500 mg, IV Univers n 05-18 Piggyback, ity of (ZITHROMAX) 14:30: 14:50 [place]CE, 1 [place] 500 mg in 00 :00 dose, On Medica l NaCl 0.9% Wed05/18/22 Bran ch (NS) 250 mL at 0930, VIAL-MATE Administer IV over 60 piggyback Minutes, 250 mL
R swapna for Anti-Infec tive: Documented Infection< br>Documen radames Infection Site: Respirator y
Durat ion of Therapy: Other (see Comments) ipratropium 2021- No 3mL 3 mL, Univ ers -albuteroL 05-18 Inhalation it y of (DUONEB) 14:00: 13:18 , ONCE, 1 [place] 0.5 mg-3 00 :00 dose, On Medical mg(2.5 mg Wed05/18/22 Bran ch base)/3 mL at 0900, nebulizer BRIA solution 3 mL ampicillin- 2021- No 1.5g 1.5 g, IV Univers sulbactam 05-18 Piggyback, ity of (UNASYN) 13:30: 13:50 ONCE, 1 [place] 1.5 g in 00 :00 dose, On Medical NaCl 0.9% Wed05/18/22 Bran ch (NS) 50 mL at 0830, MINI-BAG Administer over 30 Minutes, 50 mL
Reas on for Anti-Infec tive: Documented Infection< br>Documen radames Infection Site: Respirator y
Durat ion of Therapy: Other (see Comments) balsalazide 2021- No 750mg Take 750 Univers 750 mg 7-04 07-04 mg by ity of capsule 12:14: 00:00 mouth 2 [place] 50 :00 (two) Medical times Branch daily. balsalazide 2021- No 750mg Take 750 Univers 750 mg 7-04 07-04 mg by ity of capsule 12:14: 00:00 mouth 2 [place] 50 :00 (two) Medical times Branch daily. balsalazide 2021- No 750mg Take 750 Univers 750 mg 7-04 07-04 mg by ity of capsule 12:14: 00:00 mouth 2 [place] 50 :00 (two) Medical times Branch daily. lidocaine-p 2021- No Apply Meth kyler rilocaine [id number] (EMLA) 00:00: 00:00 as needed Hospi ta 2.5-2.5 % 00 :00 for mild l cream pain. Apply to area 30-45 minutes prior to dialysis treatment. sevelamer Yes 1600mg [id number] Take 2 [facility] (RENVELA) 3-08 [id number] tablets s t 800 mg 00:00: 3D (1,600 mg Hospit a tablet 00 total) by l mouth 3 (three) times a day with meals. Eliquis 2.5 0 Yes Q.5D Take by Met [facility] mg tablet 2-[address] 00:00: (two) Hospita 00 times a l day. colesevelam Yes Method i (WELCHOL) 2-15 st 625 mg 00:00: Hospita tablet 00 l metoprolol 2021-0 Yes [facility] succinate 2-15 st XL 00:00: Hospita (TOPROL-XL) 00 l 50 mg 24 hr tablet calcitrioL 2022- No Method i (ROCALTROL) 1-17 -19 st 0.25 MCG 00:00: 00:00 Hospita capsule 00 :00 l sodium 2020-11 Yes 650mg Take 650 Univer s bicarbonate 2-26 mg by ity of 650 mg 06:10: mouth 2 [place] tablet 03 (two) Medical times Branch daily. balsalazide 2020-11 Yes 750mg Take 750 U nivers 750 mg 2-26 mg by ity of capsule 06:10: mouth 2 [place] 03 (two) Medical times Branch daily. sodium 2020-11 Yes 650mg Take 650 Univer s bicarbonate 2-26 mg by ity of 650 mg 06:10: mouth 2 [place] tablet 03 (two) Medical times Branch daily. balsalazide 2020-11 Yes 750mg Take 750 U nivers 750 mg 2-26 mg by ity of capsule 06:10: mouth 2 [place] 03 (two) Medical times Branch daily. sodium 2020-11 Yes 650mg Take 650 Univer s bicarbonate 2-26 mg by ity of 650 mg 06:10: mouth 2 [place] tablet 03 (two) Medical times Branch daily. balsalazide 2020-11 Yes 750mg Take 750 U nivers 750 mg 2-26 mg by ity of capsule 06:10: mouth 2 [place] 03 (two) Medical times Branch daily. sodium 2020-11 Yes 650mg Take 650 Univer s bicarbonate 2-26 mg by ity of 650 mg 06:10: mouth 2 [place] tablet 03 (two) Medical times Branch daily. balsalazide 2020-11 Yes 750mg Take 750 U nivers 750 mg 2-26 mg by ity of capsule 06:10: mouth 2 [place] 03 (two) Medical times Branch daily. calcitrioL 2020-11- No [id number] .25ug Take 1 Univers 0.25 mcg 2-25 03-26 capsule by ity of capsule 00:00: 04:59 mouth [place] 00 :00 every Medical other day Branch for 90 days. calcitrioL 2020-11- No [id number] .25ug Take 1 Univers 0.25 mcg 2-25 03-26 capsule by ity of capsule 00:00: 04:59 mouth [place] 00 :00 every Medical other day Branch for 90 days. calcitrioL 2020-11- No [id number] .25ug Take 1 Univers 0.25 mcg 2-25 03-26 capsule by ity of capsule 00:00: 04:59 mouth [place] 00 :00 every Medical other day Branch for 90 days. calcitrioL 2020-11- No [id number] .25ug Take 1 Univers 0.25 mcg 2-25 -26 capsule by ity of capsule 00:00: 04:59 mouth [place] 00 :00 every Medical other day Branch for 90 days. calcitrioL 2020-11- No [id number] .25ug Take 1 Univers 0.25 mcg 2-25 -26 capsule by ity of capsule 00:00: 04:59 mouth [place] 00 :00 every Medical other day Branch for 90 days. sodium 2020-11 Yes 650mg Take 650 Univer s bicarbonate 2-24 mg by ity of 650 mg 18:10: mouth 2 [place] tablet 48 (two) Medical times Branch daily. balsalazide 2020-11 Yes 750mg Take 750 U nivers 750 mg 2-24 mg by ity of capsule 18:10: mouth 2 [place] 48 (two) Medical times Branch daily. epoetin 2020-11- No 5000U 5,000 Univers august-epbx 2-24 12-24 Units, ity of (RETACRIT) 15:15: 15:23 Slow IV [place] injection 00 :00 Push, Medical 5,000 Units DIALYSIS Bran ch ONCE - PAMELA DSU, 1 dose, On Wed11/07/21 at 0915, Routine
Facult y member approving Restricted medication : SIMA FRANCO NaCl 0.9% 2020-11- No 5mL 5 mL, Slow U nivers (NS) 2-24 12-24 IV Push, ity of injection 5 15:15: 15:15 ONCE, 1 [place] mL 00 :00 dose, On Medical Fri Branch 11/07/21 at 0915, Routine heparin 2020-11 Yes 2000U PRN - SEE Univ ers 1,000 2-24 INSTRUCTIO ity of unit/mL 15:00: NS, [place] injection 44 Starting Medica l 2,000 Units on Wed Branch 11/07/21 at 0900, Until Discontinu ed, Routine
For Priming of Ports:&nbs p; &n bsp; After initial saline flush, prime each port with heparin according to the priming volume listed on each catheter port for catheter lock.
sodium 2021-1 Yes TAKE 2 [facility] bicarbonate 2-[address] 650 mg 00:00: MOUTH 3 Hospita tablet 00 (THREE) l TIMES DAILY FOR 90 DAYS. sodium 2020-11- No [id number] 1300mg Take 2 [facility] bicarbonate 2-24 03-25 tablets by i ty of 650 mg 00:00: 04:59 mouth 3 [place] tablet 00 :00 (three) Medical times Branch daily for 90 days. apixaban 2020-11- No 1358 2.5mg Take 1 Unive rs 2.5 mg 2-24 03-25 tablet by ity of tablet 00:00: 04:59 mouth 2 [place] 00 :00 (two) Medical times Branch daily for 90 days. Indication s: atrial fibrillati on calcium 2020-11- No [id number] 500mg Take 1 [facility] carbonate 2-24 03-25 tablet by ity of 500 mg 00:00: 04:59 mouth 3 [place] calcium 00 :00 (three) Medical (1,250 mg) times Branch tablet daily with meals for 90 days. sevelamer 2020-11- No [id number] 1600mg Take 2 Univers 800 mg 2-24 03-25 tablets by ity of tablet 00:00: 04:59 mouth 3 [place] 00 :00 (three) Medical times Branch daily with meals for 90 days. metoprolol 2020-11- No [id number] 50mg Take 1 Univers succinate 2-24 03-25 tablet by ity of XL 50 mg 24 00:00: 04:59 mouth 2 [place] hr tablet 00 :00 (two) Medical times Branch daily for 90 days. sodium 2020-11- No [id number] 1300mg Take 2 [facility] bicarbonate 2-24 03-25 tablets by i ty of 650 mg 00:00: 04:59 mouth 3 [place] tablet 00 :00 (three) Medical times Branch daily for 90 days. apixaban 2020-11- No 1358 2.5mg Take 1 Unive rs 2.5 mg 2-24 03-25 tablet by ity of tablet 00:00: 04:59 mouth 2 [place] 00 :00 (two) Medical times Branch daily for 90 days. Indication s: atrial fibrillati on calcium 2020-11- No [id number] 500mg Take 1 [facility] carbonate 2-24 03-25 tablet by ity of 500 mg 00:00: 04:59 mouth 3 [place] calcium 00 :00 (three) Medical (1,250 mg) times Branch tablet daily with meals for 90 days. sevelamer 2020-11- No [id number] 1600mg Take 2 Univers 800 mg 2-24 03-25 tablets by ity of tablet 00:00: 04:59 mouth 3 [place] 00 :00 (three) Medical times Branch daily with meals for 90 days. metoprolol 2020-11- No [id number] 50mg Take 1 Univers succinate 2-24 03-25 tablet by ity of XL 50 mg 24 00:00: 04:59 mouth 2 [place] hr tablet 00 :00 (two) Medical times Branch daily for 90 days. sodium 2020-11- No [id number] 1300mg Take 2 [facility] bicarbonate 2-24 03-25 tablets by i ty of 650 mg 00:00: 04:59 mouth 3 [place] tablet 00 :00 (three) Medical times Branch daily for 90 days. apixaban 2020-11- No 1358 2.5mg Take 1 Unive rs 2.5 mg 2-24 -25 tablet by ity of tablet 00:00: 04:59 mouth 2 [place] 00 :00 (two) Medical times Branch daily for 90 days. Indication s: atrial fibrillati on calcium 2020-11- No [id number] 500mg Take 1 [facility] carbonate 2-24 03-25 tablet by ity of 500 mg 00:00: 04:59 mouth 3 [place] calcium 00 :00 (three) Medical (1,250 mg) times Branch tablet daily with meals for 90 days. sevelamer 2020-11- No [id number] 1600mg Take 2 Univers 800 mg 2-24 03-25 tablets by ity of tablet 00:00: 04:59 mouth 3 [place] 00 :00 (three) Medical times Branch daily with meals for 90 days. metoprolol 2020-11- No [id number] 50mg Take 1 Univers succinate 2-24 03-25 tablet by ity of XL 50 mg 24 00:00: 04:59 mouth 2 [place] hr tablet 00 :00 (two) Medical times Branch daily for 90 days. sodium 2020-11- No [id number] 1300mg Take 2 [facility] bicarbonate 2-24 03-25 tablets by i ty of 650 mg 00:00: 04:59 mouth 3 [place] tablet 00 :00 (three) Medical times Branch daily for 90 days. apixaban 2020-11- No 1358 2.5mg Take 1 Unive rs 2.5 mg 2-24 -25 tablet by ity of tablet 00:00: 04:59 mouth 2 [place] 00 :00 (two) Medical times Branch daily for 90 days. Indication s: atrial fibrillati on calcium 2020-11- No [id number] 500mg Take 1 [place] [facility] carbonate 2-24 -25 tablet by ity of 500 mg 00:00: 04:59 mouth 3 [place] calcium 00 :00 (three) Medical (1,250 mg) times Branch tablet daily with meals for 90 days. sevelamer 2020-11- No [id number] 1600mg Take 2 Univers 800 mg 2-24 -25 tablets by ity of tablet 00:00: 04:59 mouth 3 [place] 00 :00 (three) Medical times Branch daily with meals for 90 days. metoprolol 2020-11- No [id number] 50mg Take 1 Univers succinate -05 02-25 tablet by ity of XL 50 mg 24 00:00: 04:59 mouth 2 [place] hr tablet 00 :00 (two) Medical times Branch daily for 90 days. sodium 2020-11- No [id number] 1300mg Take 2 [facility] bicarbonate 2-24 -25 tablets by i ty of 650 mg 00:00: 04:59 mouth 3 [place] tablet 00 :00 (three) Medical times Branch daily for 90 days. apixaban 2020-11- No 1358 2.5mg Take 1 Unive rs 2.5 mg 2-24 -25 tablet by ity of tablet 00:00: 04:59 mouth 2 [place] 00 :00 (two) Medical times Branch daily for 90 days. Indication s: atrial fibrillati on calcium 2020-11- No [id number] 500mg Take 1 [facility] carbonate 2-24 -25 tablet by ity of 500 mg 00:00: 04:59 mouth 3 [place] calcium 00 :00 (three) Medical (1,250 mg) times Branch tablet daily with meals for 90 days. sevelamer 2020-11- No [id number] 1600mg Take 2 Univers 800 mg 2 03-25 tablets by ity of tablet 00:00: 04:59 mouth 3 [place] 00 :00 (three) Medical times Branch daily with meals for 90 days. metoprolol 2020-11 No [id number] 50mg Take 1 Univers succinate 2-24 -25 tablet by ity of XL 50 mg 24 00:00: 04:59 mouth 2 [place] hr tablet 00 :00 (two) Medical times Branch daily for 90 days. metoprolol 2020-11 Yes 50mg 50 mg, Unive rs succinate 2-23 Oral, BID, ity of XL (TOPROL 02:00: First dose [place] XL) tablet 00 (after Medical 50 mg last Branch modificati on) on Wed11/05/21 at 2000, Until Discontinu ed, Routine epoetin 2020-11 No 5000U 5,000 Univers august-epbx 01-06 Units, ity of (RETACRIT) 15:00: 16:19 Slow IV [place] injection 00 :00 Push, Medical 5,000 Units DIALYSIS Bran ch ONCE - PAMELA DSU, 1 dose, On Wed11/05/21 at 0900, Routine
Facult y member approving Restricted medication : SIMA FRANCO NaCl 0.9% 2020-11 No 5mL 5 mL, Slow U nivers (NS) 01-06 IV Push, ity of injection 5 15:00: 16:21 ONCE, 1 [place] mL 00 :00 dose, On Medical [facility] Branch 11/05/21 at 0900, Routine heparin 2020-11 Yes 2000U PRN - SEE Univ ers 1,000 01-06 INSTRUCTIO ity of unit/mL 14:55: NS, [place] injection 18 Starting Medica l 2,000 Units on Wed Branch 11/05/21 at 0855, Until Discontinu ed, Routine
For Priming of Ports:&nbs p; &n bsp; After initial saline flush, prime each port with heparin according to the priming volume listed on each catheter port for catheter lock.
magnesium 2020-11 No 4g 4 g, IV Univ ers sulfate in 01-06 Piggyback, it y of water 4 14:15: 20:12 ONCE, 1 [place] gram/50 mL 00 :00 dose, On Medic al (8 %) IV Wed Piggyback 4 11/05/21 g at 0815, Routine apixaban 2020-11 Yes 2.5mg 2.5 mg, Unive rs (ELIQUIS) 01-06 Oral, BID, ity of tablet 2.5 02:00: First dose [place] mg 00 on [facility] 11/04/21 Branch at 1999, Until Discontinu ed, Routine
Indicatio ns: Non-Valvul ar Atrial Fibrillati on metoprolol 2020-11- No 25mg 25 mg, Univ ers succinate 01-06 Oral, BID, ity of XL (TOPROL 02:00: 16:50 First dose [place] XL) tablet 00 :55 (after Medical 25 mg last Branch modificati on) on Wed11/04/21 at 1999, Until Discontinu ed, Routine calcitrioL 2020-11 Yes .25ug 0.25 mcg, U nivers (ROCALTROL) 01-05 Oral, Q ity o f capsule 15:00: OTHERDAY, [place] 0.25 mcg 00 First dose Medic al on Wed11/04/21 at 0900, Until Discontinu ed, Routine digoxin 2020-11- No 125ug 125 mcg, Univ ers (LANOXIN) 01-05 Intravenou ity of injection 07:00: 18:59 s, Q6H [place] 125 mcg 00 :00 ABX, 2 Medical doses, Branch First dose on Wed11/04/21 at 0100, Last dose on Wed11/04/21 at 0700, Routine mupirocin 2020-11- No Nasal, Unive rs (BACTROBAN 01-05 Q12H, 10 ity of NASAL OINT) 02:00: 01:59 doses, Vick as 2 % nasal 00 :00 First dose Medi byron ointment on Wed Branch 11/03/21 at 2000, Last dose on [facility] 11/08/21 at 0800, Routine digoxin 2020-11- No 125ug 125 mcg, Univ ers (LANOXIN) 01-04 Intravenou ity of injection 23:43: 01:09 s, ONCE, 1 [place] 125 mcg 00 :00 dose, On [facility] 11/03/21 at 1745, Routine iopamidol 2020-11- No [id number] 100mL 100 mL, Univers (ISOVUE -03 11- Intravenou ity o f 370-500 mL) 22:45: 22:45 s, ONCE, 1 [place] injection 00 :00 dose, On Medica l 100 mL [facility] 11/03/21 at 1645, Routine NaCl 0.9% 2020-11- No 250mL at 999 Univ ers (NS) bolus - 12-20 mL/hr, 250 it y of infusion 22:30: 21:49 mL, IV [place] 250 mL 00 :00 Piggyback, [facility] ONCE, 1 Branch dose, On [facility] 11/03/21 at 1630, STAT metoprolol 2020-11- No 5mg 5 mg, Unive rs (LOPRESSOR) 01-04 Intravenou i ty of injection 5 22:30: 21:42 s, ONCE, 1 [place] mg 00 :00 dose, On [facility] 11/03/21 at 1630, Routine psyllium 2020-11 Yes 1{packe 1 Packet, U nivers (METAMUCIL 2-20 t} Oral, ity of FIBER 20:00: DAILY, [place] SINGLES) 00 First dose Medic al 3.4 gram on [facility] packet 1 11/03/21 Packet at 1400, Until Discontinu ed, Routine heparin 2020-11 Yes 2000U PRN - SEE Univ ers 1,000 2-20 INSTRUCTIO ity of unit/mL 19:05: NS, [place] injection 11 Starting Medica l 2,000 Units on [facility] 11/03/21 at 1305, Until Discontinu ed, Routine
For Priming of Ports:&nbs p; &n bsp; After initial saline flush, prime each port with heparin according to the priming volume listed on each catheter port for catheter lock.
ceFAZolin 2020-11- No Slow IV Univ ers (ANCEF) 2- 12-20 Push, PRN, ity o f injection 17:10: 17:10 Starting Vick as 00 :00 on [facility] 11/03/21 Branch at 1110, Until Discontinu ed, BRIA metoprolol 2020-11- No Intravenou Univers (LOPRESSOR) 01-04 12- s, PRN, ity of injection 16:55: 16:55 Starting [place]ick as 00 :00 on [facility] 11/03/21 Branch at 1055, Until Discontinu ed, Routine pantoprazol 2020-11 Yes 40mg 40 mg, Univ ers e 2-20 Slow IV ity of (PROTONIX) 15:00: Push, [place] injection 00 DAILY, Medical 40 mg First dose Branch on [facility] 11/03/21 at 0900, Until Discontinu ed ondansetron 2020-11 Yes 4mg 4 mg, Unive rs (ZOFRAN) 2-20 Oral, ity of tablet 4 mg 14:23: Q8HPRN, [place]ick [place] 36 Starting Medical on [facility] 11/03/21 at 0823, Until Discontinu ed, Routine, Nausea and Vomiting (N/V) ondansetron 2020-11- No 4mg 4 mg, Univ ers (ZOFRAN) 2-03 11- Oral, ity of tablet 4 mg 13:29: 14:01 ONCE, 1 [place] 00 :00 dose, On [facility] 11/03/21 at 0730, BRIA metoprolol 2020-11- No 2.5mg 2.5 mg, Un [facility]la (LOPRESSOR) 01-04- Intravenou i ty of injection 13:27: 13:48 s, ONCE, 1 [place] 2.5 mg 00 :00 dose, On [facility] 11/03/21 at 0730, STAT Loperamide 2020-11 Yes 1mg 1 mg, Univer s (IMODIUM 2-19 Oral, ity of A-D) 1 16:30: TIDPRN, [place] mg/7.5 mL 11 Starting Medica l solution 1 on [facility] 11/02/21 at 1030, Until Discontinu ed, Routine, Diarrhea sevelamer 2020-11 Yes 1600mg 1,600 mg, U nivers (RENVELA) 2-19 Oral, TID ity o f tablet 14:00: MEALS, [place] 1,600 mg 00 First dose Medic al (after Branch last modificati on) on [place] 11/02/21 at 0800, Until Discontinu ed, Routine metoprolol 2020-11- No 12.5mg 12.5 mg, Univers succinate 01-03 Oral, BID, ity of XL (TOPROL 14:00: 18:53 First dose [place] XL) tablet 00 :23 on [place] Medical 12.5 mg 11/02/21 Branch at 0800, Until Discontinu ed, Routine heparin 2020-11 No 80U/kg 4,080 Univer s 1000 01-02- Units (80 ity of unit/mL 20:45: 00:12 Units/kg [place] injection 00 :00 ?51 kg), Medica l Soln 4,080 IV Push, Branc h Units ONCE, 1 dose, On 11/01/21 at 1445, Routine metoprolol 2020-11- No 12.5mg 12.5 mg, Univers succinate 01-02 Oral, ity of XL (TOPROL 20:30: 12:55 DAILY, [place] XL) tablet 00 :19 First dose Med ical 12.5 mg (after Branch last modificati on) on 11/01/21 at 1430, Until Discontinu ed, Routine heparin 2020-11 No 18U/kg/ 18 Univer s 25,000 01-02- h Units/kg/h ity of Units/250 20:28: 18:20 r ?51 kg V[place] as mL 21 :39 (9.18 Medical (Premixed mL/hr), IV Bran ch Bag) in Infusion, 0.45 % NS TITRATE, Parameters in Admin. Instr., Starting on 11/01/21 at 1428
CA UTION - If LMWH given in ER, AVOID bolus and start next dose/drip 12 hrs after ER dosage.&nb sp; M ust program rate using programmab le infusion pump.&nbsp ;&nbsp ;Check with the ordering provider first prior to any administra tion should the patient be on existing/a dditional anticoagul ant therapy. Rang e, Dosing and Testing: &nbs p;DO NOT ADJUST INITIAL BOLUS OR INITIAL INFUSION RATE.&nbsp ; _ &nb sp;FOR [facility], [facility], AND [facility] C[facility]USES ONLY &nbs p; - aPTT < 35: & nbsp;Bolus 5000 units, increase rate 300 units/hr&n bsp; - aPTT 35-44:&nbs p; William silvia 3000 units, increase rate 200 units/hr&n bsp; - aPTT 45-54:&nbs p; In crease rate 100 units/hr&n bsp; - aPTT 55-85:&nbs p; NO CHANGE&nbs p; - aPTT 86-95:&nbs p; De crease rate 100 units/hr&n bsp; - aPTT 96-120:&am p;nbsp;&nb sp;Hold 30 minutes, decrease rate 150 units/hr&n bsp; - aPTT > 120: Hold 60 minutes, decrease rate 200 units/hr&n bsp; Check aPTT 6 hours after initiation , then Q6H after every change, aPTT Q12H once therapeuti c levels are reached.&n bsp; &nbs p; __ &n bsp;FOR [facility] ONLY - aPTT < 40: & nbsp;Bolus 5000 units, increase rate 300 units/hr&n bsp; - aPTT 40-49:&nbs p; William silvia 3000 units, increase rate 200 units/hr&n bsp; - aPTT 50-59:&nbs p; In crease rate 100 units/hr&n bsp; - aPTT 60-85:&nbs p; NO CHANGE&nbs p; - aPTT 86-95:&nbs p; De crease rate 100 units/hr&n bsp; - aPTT 96-120:&nb sp; H old 30 minutes, decrease rate 150 units/hr&a mp;nbsp; - aPTT > 120: Hold 60 minutes, decrease rate 200 units/hr&n bsp; Check aPTT 6 hours after initiation , then Q6H after every change, aPTT Q12H once therapeuti c levels are reached.<b r> metoprolol 2020-11- No 2.5mg 2.5 mg, Un karla (LOPRESSOR) 01-02 Intravenou i ty of injection 20:15: 19:22 s, ONCE, 1 [place] 2.5 mg 00 :00 dose, On Medical Sat Branch 11/01/21 at 1415, Routine bacitracin 2020-11 Yes Topical Univ ers 500 unit/g 01-02 (Apply To ity of ointment 30 15:00: Affected [place] g tube 00 Areas), Medical DAILY, Branch First dose on 11/01/21 at 0900, Until Discontinu ed, Routine sodium 2020-11 Yes 1300mg 1,300 mg, Univ ers bicarbonate 18 Oral, TID, it y of (ANTACID 02:00: First dose Vick as (SODIUM 00 (after Medical BICARBONATE last Branch )) tablet modificati 1,300 mg on) on Wed10/31/21 at 2000, Until Discontinu ed, Routine HYDROcodone 2020-11 Yes 2.5mg 2.5 mg, Un karla -acetaminop 01-02 Oral, ity of hen (HYCET) 01:45: Q4HPRN, Vick as 7.5-325 26 Starting Medical mg/15 mL on Wed Branch solution 10/31/21 2.5 mg at 1945, Until Discontinu ed, Routine, agitation barium 2020-11- No [id number] 20mL 20 mL, Uni vers sulfate-NO 01-01 Oral, ity of CHARGE- 22:00: 21:57 ONCE, 1 [place] (VARIBAR 00 :00 dose, On Medical NECTOR) 40 Fri Branch % (w/v) 10/31/21 oral at 1600, suspension Routine 20 mL barium 2020-11- No [id number] 20g 20 g, Univ ers sulfate -10-31 Oral, ity of (VARIBAR 22:00: 21:54 ONCE, 1 [place] THIN 00 :00 dose, On Medical LIQUID) 81 Wed Branch % (w/w) 10/31/21 oral powder at 1600, 20 g Routine phenoL 2020-11 Yes 1{spray 1 [place], Univ ers (SORE 01-01 } Oral, ity of THROAT 16:00: DAILY, [place] (PHENOL)) 00 First dose Medi byron 1.4 % spray (after Branch bottle 1 last [place] modificati on) on Wed10/31/21 at 1000, Until Discontinu ed, Routine calcium 2020-11 Yes 500mg 500 mg, Univer s carbonate 01-01 Oral, TID ity o f (OSCAL-500) 14:00: MEALS, [place] tablet 500 00 First dose Med ical mg on Wed Branch 10/31/21 at 0800, Until Discontinu ed, Routine sodium 2020-11- No 1300mg 1,300 mg, Uni vers bicarbonate 01-01 Enteral, ity of (ANTACID 02:00: 01:45 TID, First [place] (SODIUM 00 :48 dose Medical BICARBONATE (after Branch )) tablet last 1,300 mg modificati on) on Wed10/30/21 at 2000, Until Discontinu ed, Routine sodium 2020-11 Yes 650mg Take 650 Univer s bicarbonate 2-16 mg by ity of 650 mg 12:55: mouth 2 [place] tablet 10 (two) Medical times Branch daily. balsalazide 2020-11 Yes 750mg Take 750 U nivers 750 mg 2-16 mg by ity of capsule 12:55: mouth 2 [place] 10 (two) Medical times Branch daily. labetaloL 2020-11 Yes 10mg 10 mg, Univer s (NORMODYNE) 2-16 Slow IV ity o f injection 03:32: Push, [place] 10 mg 54 Q4HPRN, Medical Starting Branch on Wed10/29/21 at 2132, Until Discontinu ed, Routine, SBP >180 ampicillin- 2020-11- No 1.5g 1.5 g, IV Univers sulbactam 12-30 Piggyback, ity of (UNASYN) 20:30: 15:05 Q24H ABX, [place] 1.5 g in 00 :00 First dose Medic al NaCl 0.9% on Wed Branch (NS) 100 mL 10/29/21 MINI-BAG at 1430, Until Discontinu ed, Administer over 30 Minutes, 100 mL
Reas on for Anti-Infec tive: Documented Infection< br>Documen radames Infection Site: Other
O ther site: Respirator y and urinary
Duration of Therapy: 7 days hydralAZINE 2020-11 No 10mg 10 mg, Uni vers (APRESOLINE 12-30-15 Slow IV ity of ) injection 16:30: 15:51 Push, ONCE [place] 10 mg 00 :00 NOW, 1 Medical dose, On Branch 10/29/21 at 1030, STAT
In dication: Hypertensi ve Emergency hydrALAZINE 2020-11 No 10mg 10 mg, Uni vers (APRESOLINE 12-30-16 Enteral, ity of ) tablet 10 15:15: 03:34 Q6HPRN, [place] mg 54 :05 Starting Medical on Wed Branch 10/29/21 at 0915, Until Wed10/29/21 at 2134, Routine, SBP > 160 potassium 2020-11 No 40meq 40 mEq, Uni vers chloride 40 12-30- Intravenou i ty of mEq in 100 13:45: 20:31 s, ONCE, 1 [place] mL IVPB 00 :00 dose, On Medical Wed Branch 10/29/21 at 0745, 100 mL magnesium 2020-11- No 4g 4 g, IV Univ ers sulfate in 12-30-15 Piggyback, it y of water 4 13:30: 20:35 ONCE, 1 [place] gram/50 mL 00 :00 dose, On Medic al (8 %) IV Wed Branch Piggyback 4 10/29/21 g at 0730, Routine KCL 20 2020-11- No 20meq 20 mEq, Univer s mEq/15 mL 12-30-15 Oral, ONCE ity of solution 20 13:30: 16:30 NOW, 1 [place] mEq 00 :00 dose, On Wed Branch 10/29/21 at 0730, Routine sodium 2020-11 No 650mg 650 mg, Univer s bicarbonate 12-30 12-17 Enteral, ity of (ANTACID 02:00: 00:15 TID, First [place] (SODIUM 00 :24 dose on Medical BICARBONATE Wed )) tablet 10/28/21 650 mg at 2000, Until Discontinu ed, Routine sevelamer 2020-11 No 800mg 800 mg, Uni vers (RENVELA) 12-2919 Oral, TID ity of tablet 800 23:00: 01:18 MEALS, [place] mg 00 :07 First dose Medical on Wed10/28/21 at 1700, Until Discontinu ed, Routine NORepinephr 2020-11 .05ug/k 0.05-1.5 Univers ine 16 mg 12-29 12-18 g/min mcg/kg/min it y of in NS 250 15:28: 01:45 ?61.5 kg [place] mL infusion 13 :48 (2.8828-86 Nm dical RTU .4844 Branch mL/hr, rounded to 2.88-86.48 mL/hr), IV Infusion, TITRATE, MAP Goal > or = 60 mmHg, Starting on Wed10/28/21 at 0928
In itiate titration at 0.05 mcg/kg/min . &nb sp;Increas e by 0.01 mcg/kg/min every 30 seconds to 5 minutes as needed to reach and maintain goal blood pressure.& nbsp;&nbsp ;Maximum dose = 1.5 mcg/kg/min . &nb sp;If goal not maintained at maximum allowed dose, contact prescriber .
CVVHD fluid 2020-11 Yes [id number] 2L/h 2 L/hr Univers dialysate, 12-29 [id number] (2,000 ity o f K 4.0-Ca 02:15: mL/hr), [place] 3.0, Mg 00 CRRT Medical 1.0, HCO3 Circuit, Branch 35, Cl 113, at 2,000 Osm 300 mL/hr, CONTINUOUS , Starting on Wed10/27/21 at 2015, Until Discontinu ed, Routine ipratropium 2020-11 Yes 3mL 3 mL, Unive rs -albuteroL 2-14 Inhalation ity of (DUONEB) 02:00: , QID, [place] 0.5 mg-3 00 First dose Medic al mg(2.5 mg on [facility] base)/3 mL 10/27/21 nebulizer at 2000, solution 3 Until mL Discontinu ed, Routine propofoL IV 2020-11 No 5ug/kg/ 5-50 Un karla infusion 2-14 12-18 min mcg/kg/min ity of 01:25: 01:45 ?61.5 kg [place] 04 :48 (1.845-18. Medical 45 mL/hr, Branch rounded to 1.85-18.45 mL/hr), IV Infusion, TITRATE, Sedation-R ASS score (0 to -1), Starting on Wed10/27/21 at 1925
In itiate infusion at 5 mcg/kg/min and titrate by 5 mcg/kg/min every 30 seconds to 10 minutes to goal sedation score. Maximum dose = 50 mcg/kg/min . If goal not maintained at maximum allowed dose, contact prescriber . &nbs p;Tubing and unused portions of vials should be discarded after 12 hours.
propofoL IV 2020-11 No 100mg 100 mg, U nivers infusion 12-29 Slow IV ity of 100 mg 00:15: 23:54 Push, [place] 00 :00 ONCE, On [facility] 10/27/21 at 1815, For 1 dose LORazepam 2020-11 No 1mg 1 mg, Slow U nivers (ATIVAN) 12-28 IV [place], ity of injection 1 23:15: 21:40 ONCE, 1 [place] mg 00 :00 dose, On [facility] 10/27/21 at 1715, Routine LORazepam 2020-11 No 1mg 1 mg, Slow U nivers (ATIVAN) 12-28 IV [place], ity of injection 1 22:30: 21:30 ONCE, 1 [place] mg 00 :00 dose, On Medical Mon Branch 10/27/21 at 1630, Routine furosemide 2020-11- No 80mg 80 mg, Univ ers (LASIX) 12-28- Slow IV ity of injection 20:45: 19:51 Push, [place] 80 mg 00 :00 ONCE, 1 Medical dose, On Branch 10/27/21 at 1445, BRIA dexMEDEtomi 2020-11- No .2ug/kg 0.2-1.5 Univers dine 200 12-2818 /h mcg/kg/hr ity o f mcg in 0.9 14:44: 01:45 ?61.5 kg [place] % NaCl 50 46 :48 (3.075-23. Medi byron mL 0625 Branch (PRECEDEX) mL/hr, RTU IV rounded to infusion 3.08-23.06 mL/hr), IV Infusion, TITRATE, Sedation-R ASS score (0 to -1), Starting on Wed10/27/21 at 0844
In itiate infusion at 0.2 mcg/kg/hr and titrate by 0.1 mcg/kg/hr every 30 minutes to goal sedation score. Maximum dose = 1.5 mcg/kg/hr. If goal not maintained at maximum allowed dose, contact prescriber .
haloperidol 2020-11- No 1mg 1 mg, Slow Univers lactate 12-28- IV [place], ity of (HALDOL) 14:02: 14:07 ONCE, 1 [place] injection 1 00 :00 dose, On Medi byron mg Mon Branch 10/27/21 at 0815, STAT HYDROcodone 2020-11- No 2.5mg 2.5 mg, U nivers -acetaminop 12-28 Enteral, ity of hen (HYCET) 13:45: 01:45 Q4HPRN, [place] 7.5-325 01 :48 Starting Medical mg/15 mL on Mon Branch solution 10/27/21 2.5 mg at 0745, Until Wed10/31/21 at 1945, Routine, agitation haloperidol 2020-11- No 1mg 1 mg, Slow Univers lactate 12-28- IV [place], ity of (HALDOL) 08:59: 09:02 ONCE, 1 [place] injection 1 00 :00 dose, On Medi byron mg Mon [place] 10/27/21 at 0300, Routine potassium 2020-11 No 10meq 10 mEq, IV Univers chloride in 12-28 Piggyback, i ty of water 10 08:15: 08:29 ONCE, 1 [place] mEq/100 mL 00 :00 dose, On Medic al RTU 10 mEq [facility] 10/27/21 at 0215, Administer over 60 Minutes, 100 mL haloperidol 2020-11- No 1mg 1 mg, Slow Univers lactate 12-28 IV Push, ity of (HALDOL) 07:24: 07:29 ONCE, 1 [place] injection 1 00 :00 dose, On Medi byron mg [facility] 10/27/21 at 0130, Routine sodium 2020-11 No 50meq 50 mEq, Univer s bicarbonate 12-28 Slow IV ity of 8.4 % (1 06:15: 05:30 Push, [place] mEq/mL) 00 :00 ONCE, 1 Medical injection dose, On Branch 50 mEq [facility] 10/27/21 at 0015, Routine sodium 2020-11 No 50meq 50 mEq, Univer s bicarbonate 12-28 Slow IV ity of 8.4 % (1 03:15: 02:31 Push, [place] mEq/mL) 00 :00 ONCE, 1 Medical injection dose, On Branch 50 mEq [place] 10/26/21 at 2115, Routine HYDROmorpho 2020-11- No .2mg 0.2 mg, Un karla ne 12-28 Slow IV ity of (DILAUDID) 01:15: 23:40 Push, [place] injection 00 :00 ONCE, 1 Medical 0.2 mg dose, On Branch [place] 10/26/21 at 1915, Routine
Use approved by (Faculty): [facility] diphenhydrA 2020-11 No 12.5mg 12.5 mg, Univers MINE 12-28 Slow IV ity of (BENADRYL) 01:15: 23:30 Push, [place] injection 00 :00 ONCE, 1 Medical 12.5 mg dose, On Branch 10/26/21 at 1915, Routine potassium 2021-1 2021- No 10meq 10 mEq, IV Univers chloride in 12-28 Piggyback, i ty of water 10 00:15: 00:08 ONCE, 1 [place] mEq/100 mL 00 :00 dose, On Medic al RTU 10 mEq [facility] 10/26/21 at 1815, Administer over 60 Minutes, 100 mL HYDROmorpho 2020-11- No .2mg 0.2 mg, Un karla ne 12-28 Slow IV ity of (DILAUDID) 00:15: 23:13 Push, [place] injection 00 :00 ONCE, 1 Medical 0.2 mg dose, On [facility] 10/26/21 at 1815, Routine
Use approved by (Faculty): [facility] diphenhydrA 2020-11- No 12.5mg 12.5 mg, Univers MINE 12-27 Slow IV ity of (BENADRYL) 23:19: 23:25 Push, [place] injection 00 :00 ONCE, 1 Medical 12.5 mg dose, On [facility] 10/26/21 at 1730, Routine NaCl 0.9% 2020-11- No 1000mL at 250 Uni vers (NS) IV 12-27-14 mL/hr, IV ity of infusion 23:00: 14:00 Infusion, [place] 1,000 mL 00 :00 ONCE, 1 Medical dose, On [facility] 10/26/21 at 1700, Routine heparin 2020-11- No 2000U PRN - SEE Uni vers 1,000 12-27 INSTRUCTIO ity of unit/mL 22:49: 18:20 NS, [place] injection 07 :39 Starting Medica l 2,000 Units on [facility] 10/26/21 at 1649, Until [place] 11/02/21 at 1220, Routine
For Priming of Ports:&nbs p; &n bsp; After initial saline flush, prime each port with heparin according to the priming volume listed on each catheter port for catheter lock.<b r> potassium 2020-11- No 10meq 10 mEq, IV Univers chloride in 12-27 Piggyback, i ty of water 10 21:15: 21:19 ONCE, 1 [place] mEq/100 mL 00 :00 dose, On Medic al RTU 10 mEq [place] 10/26/21 at 1515, Administer over 60 Minutes, 100 mL sodium 2020-11 No 50meq 50 mEq, Univer s bicarbonate 12-27 Slow IV ity of 1 mEq/mL 20:30: 19:53 Push, [place] (8.4 %) 00 :00 ONCE, 1 Medical injection dose, On Branch 50 mEq 10/26/21 at 1430, Routine NaCl 0.45% 2020-11- No 1000mL at 125 Un karla (1/2NS) IV 12-27-12 mL/hr, ity of infusion 17:45: 23:08 1,000 mL, [place] as 1,000 mL 00 :00 IV Medical Infusion, Branch ONCE, 1 dose, On [place] 10/26/21 at 1145, Routine Sliding 2020-11 Yes Subcutaneo Univ ers Scale 2-12 us, Q4H, ity of Insulin - 17:00: First dose [place] Lispro 00 (after Medical (HumaLOG) + last Branch Fsbg modificati Testing on) on [place] 10/26/21 at 1100, Until Discontinu ed, Routine heparin 2020-11- No 5000U 5,000 Univers (porcine) 12-27-18 Units, ity of injection 14:00: 20:30 Subcutaneo [place] 5,000 Units 00 :25 us, Q12H, Med ical First dose Branch on [place] 10/26/21 at 0800, Until Discontinu ed, Routine sodium 2020-11- No 150meq IV Univers bicarbonate 12-27 Infusion, it y of 150 mEq in 11:00: 16:24 at 100 [place] D5W 1,000 00 :42 mL/hr, 150 Medi byron mL IV mEq, Branch infusion CONTINUOUS , Starting on [place] 10/26/21 at 0500, Until [place] 10/26/21 at 1024, Routine FENTanyl PF 2020-11- No 25ug 25 mcg, Un karla (SUBLIMAZE 12-27- Slow IV ity o f (PF)) 06:50: 11:01 Push, [place] injection 00 :00 ONCE, 1 Medical 25 mcg dose, On Branch [place] 10/26/21 at 0100, Routine sodium 2020-11- No 50meq 50 mEq, Univer s bicarbonate 12-27 Slow IV ity of 8.4 % (1 06:46: 07:38 Push, [place] mEq/mL) 00 :00 ONCE, 1 Medical injection dose, On Branch 50 mEq 10/26/21 at 0100, Routine sodium 2020-11- No 150meq IV Univers bicarbonate 12-27 Infusion, it y of 150 mEq in 06:30: 10:50 at 200 [place] D5W 1,000 00 :14 mL/hr, 150 Medi byron mL IV mEq, Branch infusion CONTINUOUS , Starting on 10/26/21 at 0030, Until 10/26/21 at 0450, Routine azithromyci 2020-11- No 500mg 500 mg, IV Univers n 12-27 Piggyback, ity of (ZITHROMAX) 06:00: 06:58 ONCE, 1 [place] 500 mg in 00 :00 dose, On Medica l NaCl 0.9% [place] (NS) 250 mL 10/26/21 VIAL-MATE at 0000, IV Administer piggyback over 60 Minutes, 250 mL
Reas on for Anti-Infec tive: Documented Infection< br>Documen radames Infection Site: Respirator y
Du ration of Therapy: Other (see Comments) Sliding 2020-11- No Subcutaneo Uni vers Scale 12-27 us, Q4H, ity of Insulin - 06:00: 14:40 First dose [place] Lispro 00 :22 (after Medical (HumaLOG) + last Branch Fsbg modificati Testing on) on 10/26/21 at 0000, Until Discontinu ed, Routine piperacilli 2020-11- No 4.5g 4.5 g, IV Univers n-tazobacta 12-27 Piggyback, i ty of m (ZOSYN) 04:45: 19:19 Q12H ABX, [place] 4.5 g in 00 :27 First dose Medic al NaCl 0.9% on Sat Branch (NS) 100 mL 10/25/21 MINI-BAG at 2245, Until Discontinu ed, Administer over 30 Minutes, 100 mL
Reas on for Anti-Infec tive: Empiric Therapy for Suspected Infection< br>Empiric Therapy Site: Respirator y
Durat ion of therapy: 7 days sodium 2020-11- No 150meq IV Univers bicarbonate 12-27 Infusion, it y of 150 mEq in 04:00: 06:28 at 150 [place] D5W 1,000 00 :39 mL/hr, 150 Medi byron mL IV mEq, Branch infusion CONTINUOUS , Starting on 10/25/21 at 2200, Until 10/26/21 at 0028, Routine magnesium 2020-11- No 4g 4 g, IV Univ ers sulfate in 12-27 Piggyback, it y of water 4 03:45: 07:41 ONCE, 1 [place] gram/50 mL 00 :00 dose, On Medic al (8 %) IV Sat Branch Piggyback 4 10/25/21 g at 2145, Routine lactated 2020-11- No 1000mL at 500 Univ ers ringers IV 12-27 mL/hr, ity of infusion 03:15: 04:00 1,000 mL, [place] 1,000 mL 00 :00 IV Medical Infusion, Branch ONCE, 1 dose, On 10/25/21 at 2115, STAT sodium 2020-11 No 100meq 100 mEq, Univ ers bicarbonate 12-26 Slow IV ity of 8.4 % (1 21:15: 20:03 Push, [place] mEq/mL) 00 :00 ONCE, 1 Medical injection dose, On Branch 100 mEq 10/25/21 at 1515, STAT NaCl 0.9% 2020-11- No 500mL at 999 Univ ers (NS) bolus 12-26 mL/hr, 500 it y of infusion 19:45: 19:30 mL, IV [place] 500 mL 00 :00 Infusion, Medical ONCE, 1 Branch dose, On 10/25/21 at 1345, BRIA ondansetron 2020-11- No 4mg 4 mg, Slow Univers (ZOFRAN 12-26 IV Push, ity of (PF)) 19:00: 17:50 ONCE, 1 [place] injection 4 00 :00 dose, On Medi byron mg Sat Branch 10/25/21 at 1300, BRIA azithromyci 2020-11- No 500mg 500 mg, IV Univers n 12-26 Piggyback, ity of (ZITHROMAX) 18:30: 18:46 ONCE, 1 [place] 500 mg in 00 :00 dose, On Medica l NaCl 0.9% Sat Branch (NS) 250 mL 10/25/21 VIAL-MATE at 1230, IV Administer piggyback over 60 Minutes, 250 mL
Reas on for Anti-Infec tive: Documented Infection< br>Documen radames Infection Site: Respirator y
Du ration of Therapy: Other (see Comments) cefTRIAXone 2020-11 No 1000mg 1,000 mg, Univers (ROCEPHIN) 12-26 IV ity of 1,000 mg in 18:30: 18:16 Piggyback, [place] NaCl 0.9% 00 :00 ONCE, 1 Medical (NS) 50 mL dose, On Branc h MINI-BAG 10/25/21 at 1230, Administer over 30 Minutes, 50 mL
Reas on for Anti-Infec tive: Documented Infection< br>Documen radames Infection Site: Respirator y
Du ration of Therapy: Other (see Comments) NaCl 0.9% 2020-11 No 500mL at 999 Univ ers (NS) bolus 12-26 mL/hr, 500 it y of infusion 18:00: 18:54 mL, IV [place] 500 mL 00 :00 Infusion, Medical ONCE, 1 Branch dose, On 10/25/21 at 1200, BRIA atorvastati 2020-11 Yes Univer s n 20 mg 2-02 ity of tablet 00:00: [place] 00 Medical Branch colesevelam 2020-11 Yes 625mg Take 625 U nivers 625 mg 2-02 mg by ity of tablet 00:00: mouth 2 (two) Medical times Branch daily with meals. colesevelam 2020-11 Yes Univer s 625 mg 2-02 ity of tablet 00:00: [place] 00 Medical Branch colesevelam 2020-11 Yes 625mg Take 625 U nivers 625 mg 2-02 mg by ity of tablet 00:00: mouth 2 (two) Medical times Branch daily with meals. BYSTOLIC 20 2020-11 Yes Univer s mg tablet 2-02 ity of 00:00: [place] 00 Medical Branch colesevelam 2020-11 Yes 625mg Take 625 U nivers 625 mg 2-02 mg by ity of tablet 00:00: mouth 2 [place] (two) Medical times Branch daily with meals. colesevelam 2020-11 Yes 625mg Take 625 U nivers 625 mg 2-02 mg by ity of tablet 00:00: mouth 2 [place] (two) Medical times Branch daily with meals. JANUVIA 50 2020-11 Yes Univers mg tablet 2-02 ity of 00:00: [place] 00 Medical Branch colesevelam 2020-11 Yes 625mg Take 625 U nivers 625 mg 2-02 mg by ity of tablet 00:00: mouth 2 [place] (two) Medical times Branch daily with meals. colesevelam 2020-11 Yes 625mg Take 1 Uni vers 625 mg 2-02 tablet by ity of tablet 00:00: mouth in [place] the Medical morning Branch and 1 tablet in the evening. Take with meals. colesevelam 2020-11 Yes 625mg Take 1 Uni vers 625 mg 2-02 tablet by ity of tablet 00:00: mouth in [place] the Medical morning Branch and 1 tablet in the evening. Take with meals. colesevelam 2020-11 Yes 625mg Take 1 Uni vers 625 mg 2-02 tablet by ity of tablet 00:00: mouth in [place] the Medical morning Branch and 1 tablet in the evening. Take with meals. colesevelam 2020-11 Yes 625mg Take 1 Uni vers 625 mg 2-02 tablet by ity of tablet 00:00: mouth in [place] the Medical morning Branch and 1 tablet in the evening. Take with meals. colesevelam 2020-11 Yes 625mg Take 1 Uni vers 625 mg 2-02 tablet by ity of tablet 00:00: mouth in [place] [address] the Medical morning Branch and 1 tablet in the evening. Take with meals. colesevelam 2020-11 Yes 625mg Take 1 Uni vers 625 mg 2-02 tablet by ity of tablet 00:00: mouth in [place] [address] the Medical morning Branch and 1 tablet in the evening. Take with meals. colesevelam 2020-11 Yes 625mg Take 1 Uni vers 625 mg 2-02 tablet by ity of tablet 00:00: mouth in [place] [address] the Medical morning [place] and 1 tablet in the evening. Take with meals. colesevelam 2020-11 Yes 625mg Take 1 Uni vers 625 mg 2-02 tablet by ity of tablet 00:00: mouth in [place] [address] the Medical morning [place] and 1 tablet in the evening. Take with meals. colesevelam 2020-11 Yes 625mg Take 1 Uni vers 625 mg 2-02 tablet by ity of tablet 00:00: mouth in [place] [address] the Medical morning [place] and 1 tablet in the evening. Take with meals. colesevelam 2020-11 Yes 625mg Take 1 Uni vers 625 mg 2-02 tablet by ity of tablet 00:00: mouth in [place] [address] the Medical morning [place] and 1 tablet in the evening. Take with meals. colesevelam 2020-11 Yes 625mg Take 1 Uni vers 625 mg 2-02 tablet by ity of tablet 00:00: mouth in [place] [address] the [facility] morning [place] and 1 tablet in the evening. Take with meals. colesevelam 2020-11 Yes 625mg Take 1 Uni vers 625 mg 2-02 tablet by ity of tablet 00:00: mouth in [place] [address] the [facility] morning [place] and 1 tablet in the evening. Take with meals. colesevelam 2020-11 Yes 625mg Take 1 Uni vers 625 mg 2-02 tablet by ity of tablet 00:00: mouth in [place] [address] the [facility] morning [place] and 1 tablet in the evening. Take with meals. atorvastati 2020-11 Yes Univer s n 20 mg 2-02 ity of tablet 00:00: [place] 00 [facility] Branch colesevelam 2020-11 Yes Univer s 625 mg 2-02 ity of tablet 00:00: [place] [facility] Branch BYSTOLIC 20 2020-11 Yes Univer s mg tablet 2-02 ity of 00:00: [place] [facility] Branch JANUVIA 50 2020-11 Yes Univers mg tablet 2-02 ity of 00:00: [place] 00 [facility] Branch atorvastati 2020-11 Yes Univer s n 20 mg 2-02 ity of tablet 00:00: [place] Medical Branch colesevelam 2020-11 Yes Univer s 625 mg 2-02 ity of tablet 00:00: [place] [address] [facility] 20 2020-11 Yes Univer s mg tablet 2-02 ity of 00:00: [place] [facility] 50 2020-11 Yes Univers mg tablet 2-02 ity of 00:00: [place] [facility] Yes Univer s n 20 mg 2-02 ity of tablet 00:00: [place] [facility] [place] [place] 2020-11 Yes Univer s 625 mg 2-02 ity of tablet 00:00: [place] [facility] 20 2020-11 Yes Univer s mg tablet 2-02 ity of 00:00: [place] [facility] 50 2020-11 Yes Univers mg tablet 2-02 ity of 00:00: [place] [facility] 2020-11 Yes Univer s n 20 mg 2-02 ity of tablet 00:00: [place] [facility] [place] 2020-11 Yes Univer s 625 mg 2-02 ity of tablet 00:00: [place] [facility] 20 2020-11 Yes Univer s mg tablet 2-02 ity of 00:00: [place] [facility] 50 2020-11 Yes Univers mg tablet 2-02 ity of 00:00: [place] [facility] 2020-11 Yes Univer s n 20 mg 2-02 ity of tablet 00:00: [place] [facility] [place] 2020-11 Yes Univer s 625 mg 2-02 ity of tablet 00:00: [place] [facility] 20 2020-11 Yes Univer s mg tablet 2-02 ity of 00:00: [place] [facility] 50 2020-11 Yes Univers mg tablet 2-02 ity of 00:00: [address] [facility] Yes Univer s n 20 mg 2-02 ity of tablet 00:00: [place] [facility] [place] 2020-11 Yes Univer s 625 mg 2-02 ity of tablet 00:00: [address] 20 2020-11 Yes Univer s mg tablet 2-02 ity of 00:00: [address] 50 2020-11 Yes Univers mg tablet 2-02 ity of 00:00: [place] 00 Medical Branch colesevelam 2020-11 Yes 625mg Take 625 U nivers 625 mg 2-02 mg by ity of tablet 00:00: mouth (two) Medical times Branch daily with meals. SONJA 50 2020-11- No 50mg Take 50 mg Univers mg tablet 12-17 by mouth ity o f 00:00: 00:00 daily. [place] 00 :00 Medical Branch JUAN DAVIDUVPR 50 2020-11- No 50mg Take 50 mg Univers mg tablet 12-17 by mouth ity o f 00:00: 00:00 daily. [place] 00 :00 Medical Branch [facility]11- No 50mg Take 50 mg Univers mg tablet 12-17 by mouth ity o f 00:00: 00:00 daily. [place] 00 :00 Medical Branch [facility] 2020-11- No Unive rs mg tablet 12-17 ity of 00:00: 00:00 [place] 00 :00 [facility]- No Unive rs n 20 mg 12-17 ity of tablet 00:00: 00:00 [place] 00 :00 Medical Branch [facility] 20 2020-11- No Unive rs mg tablet 12-17 ity of 00:00: 00:00 [place] 00 :00 [facility] 2020[facility]- No Unive rs n 20 mg 12-17 ity of tablet 00:00: 00:00 [place] 00 :00 Medical Branch [facility] 20 2020-11- No Unive rs mg tablet 12-17 ity of 00:00: 00:00 [place] 00 :00 Medical Branch [facility] 2020[facility]- No Unive rs n 20 mg 12-17 ity of tablet 00:00: 00:00 [place] 00 :00 [facility] Branch Immunizations Ordered Filled Date Status Comments Source Immunization Name Immunization Name Remdesivir 2022-05-22 Completed [facility] 00:00:00 [facility] Remdesivir 2022-05-22 Completed [facility] 00:00:00 [facility] Remdesivir 2022-05-22 Completed [facility] 00:00:00 [place] [facility] Remdesivir 2022-05-22 Completed University of 00:00:00 [place] [facility] Remdesivir 2022-05-22 Completed University of 00:00:00 [place] [facility] Remdesivir 2022-05-22 Completed University of 00:00:00 [place] [facility] Remdesivir 2022-05-22 Completed University of 00:00:00 [place] [facility] Remdesivir 2022-05-22 Completed University of 00:00:00 [place] [facility] Remdesivir 2022-05-22 Completed University of 00:00:00 [place] [facility] Remdesivir 2022-05-22 Completed University of 00:00:00 [place] [facility] Remdesivir 2022-05-22 Completed University of 00:00:00 [place] [facility] Remdesivir 2022-05-22 Completed University of 00:00:00 [place] [facility] Remdesivir 2022-05-22 Completed University of 00:00:00 [place] [facility] Remdesivir 2022-05-22 Completed University of 00:00:00 [place] [facility] Remdesivir 2022-05-21 Completed University of 00:00:00 [place] [facility] Remdesivir 2022-05-21 Completed University of 00:00:00 [place] [facility] Remdesivir 2022-05-21 Completed University of 00:00:00 [place] [facility] Remdesivir 2022-05-21 Completed University of 00:00:00 [place] [facility] Remdesivir 2022-05-21 Completed University of 00:00:00 [place] [facility] Remdesivir 2022-05-21 Completed University of 00:00:00 [place] [facility] Remdesivir 2022-05-21 Completed University of 00:00:00 [place] [facility] Remdesivir 2022-05-21 Completed University of 00:00:00 [place] [facility] Remdesivir 2022-05-21 Completed University of 00:00:00 [place] [facility] Remdesivir 2022-05-21 Completed University of 00:00:00 [place] [facility] Remdesivir 2022-05-21 Completed University of 00:00:00 [place] [facility] Remdesivir 2022-05-21 Completed University of 00:00:00 [place] [facility] Remdesivir 2022-05-21 Completed University of 00:00:00 [place] [facility] Remdesivir 2022-05-21 Completed University of 00:00:00 [place] [facility] Remdesivir 2022-05-20 Completed University of 00:00:00 [place] [facility] Remdesivir 2022-05-20 Completed University of 00:00:00 [place] [facility] Remdesivir 2022-05-20 Completed University of 00:00:00 [place] [facility] Remdesivir 2022-05-20 Completed University of 00:00:00 [place] [facility] Remdesivir 2022-05-20 Completed University of 00:00:00 [place] [facility] Remdesivir 2022-05-20 Completed University of 00:00:00 [place] [facility] Remdesivir 2022-05-20 Completed University of 00:00:00 [place] [facility] Remdesivir 2022-05-20 Completed University of 00:00:00 [place] [facility] Remdesivir 2022-05-20 Completed University of 00:00:00 [place] [facility] Remdesivir 2022-05-20 Completed University of 00:00:00 [place] [facility] Remdesivir 2022-05-20 Completed University of 00:00:00 [place] [facility] Remdesivir 2022-05-20 Completed University of 00:00:00 [place] [facility] Remdesivir 2022-05-20 Completed University of 00:00:00 [place] [facility] Remdesivir 2022-05-20 Completed University of 00:00:00 [place] [facility] Remdesivir 2022-05-19 Completed University of 00:00:00 [place] [facility] Remdesivir 2022-05-19 Completed University of 00:00:00 [place] [facility] Remdesivir 2022-05-19 Completed University of 00:00:00 [place] [facility] Remdesivir 2022-05-19 Completed University of 00:00:00 [place] [facility] Remdesivir 2022-05-19 Completed [facility] 00:00:00 [facility] Remdesivir 2022-05-19 Completed [facility] 00:00:00 [facility] Remdesivir 2022-05-19 Completed [facility] 00:00:00 [facility] Remdesivir 2022-05-19 Completed [facility] 00:00:00 [facility] Remdesivir 2022-05-19 Completed [facility] 00:00:00 [facility] Remdesivir 2022-05-19 Completed [facility] 00:00:00 [facility] Remdesivir 2022-05-19 Completed [facility] 00:00:00 [facility] Remdesivir 2022-05-19 Completed [facility] 00:00:00 [facility] Remdesivir 2022-05-19 Completed [facility] 00:00:00 [facility] Remdesivir 2022-05-19 Completed [facility] 00:00:00 [facility] Remdesivir 2022-05-18 Completed [facility] 00:00:00 [facility] Remdesivir 2022-05-18 Completed [facility] 00:00:00 [facility] Remdesivir 2022-05-18 Completed [facility] 00:00:00 [facility] Remdesivir 2022-05-18 Completed [facility] 00:00:00 [facility] Remdesivir 2022-05-18 Completed [facility] 00:00:00 [facility] Remdesivir 2022-05-18 Completed [facility] 00:00:00 [facility] Remdesivir 2022-05-18 Completed [facility] 00:00:00 [facility] Remdesivir 2022-05-18 Completed [facility] 00:00:00 [facility] Remdesivir 2022-05-18 Completed [facility] 00:00:00 [facility] Remdesivir 2022-05-18 Completed [facility] 00:00:00 [facility] Remdesivir 2022-05-18 Completed [facility] 00:00:00 [facility] Remdesivir 2022-05-18 Completed [facility] 00:00:00 [facility] Remdesivir 2022-05-18 Completed [facility] 00:00:00 [facility] Remdesivir 2022-05-18 Completed [facility] 00:00:00 [facility] Remdesivir Unknown Completed [facility] Remdesivir Unknown Completed [facility] Remdesivir Unknown Completed [facility] Remdesivir Unknown Completed [facility] Remdesivir Unknown Completed [facility] Remdesivir Unknown Completed [facility] Remdesivir Unknown Completed [facility] Remdesivir Unknown Completed [facility] Remdesivir Unknown Completed [facility] Remdesivir Unknown Completed [facility] Remdesivir Unknown Completed [facility] Remdesivir Unknown Completed [facility] Remdesivir Unknown Completed [facility] Remdesivir Unknown Completed [facility] Remdesivir Unknown Completed [facility] Vital Signs Vital Name Observation Time Observation Value Comments Source Systolic blood 2023-09-20 14:05:00 175 mm[Hg] Univer sity of pressure [facility] Diastolic blood 2023-09-20 14:05:00 92 mm[Hg] Unive rsity of pressure [facility] Heart rate 2023-09-20 14:05:00 77 /min [facility] Respiratory rate 2023-09-20 14:05:00 22 /min Univ ersity [facility] Oxygen saturation in 2023-09-20 14:05:00 97 /min [facility] of Arterial blood by [place] [facility] byron [facility] oxim[facility] Branch Body temperature 2023-09-20 11:40:00 37.33 Britney [facility] Body height 2023-09-20 11:40:00 162.6 cm [facility] Body weight 2023-09-20 11:40:00 50.803 kg [facility] BMI 2023-09-20 11:40:00 19.22 kg/m2 [facility] Systolic blood 2023-08-02 14:23:00 150 mm[Hg] Univer sity of pressure [facility] Diastolic blood 2023-08-02 14:23:00 56 mm[Hg] Unive rsity of pressure [facility] Heart rate 2023-08-02 14:23:00 51 /min [facility] Respiratory rate 2023-08-02 14:23:00 18 /min Univ ers[facility] Body height 2023-08-02 14:23:00 162.6 cm [facility] Body weight 2023-08-02 14:23:00 56.382 kg [facility] BMI 2023-08-02 14:23:00 21.34 kg/m2 [facility] Oxygen saturation in 2023-08-02 14:23:00 98 /min [facility] Arterial blood by [place] [facility] Wen[facility] Pulse oximetry Branch Systolic blood 2023-06-25 22:38:00 112 mm[Hg] Univer sity of pressure [facility] Diastolic blood 2023-06-25 22:38:00 63 mm[Hg] Unive rsity of pressure [facility] Heart rate 2023-06-25 22:38:00 64 /min [facility] Body temperature 2023-06-25 22:08:00 36.33 Britney [facility] Respiratory rate 2023-06-25 22:08:00 17 /min [facility] Body weight 2023-06-25 22:08:00 50.3 kg [facility] BMI 2023-06-25 22:08:00 19.03 kg/m2 [facility] Oxygen saturation in 2023-06-25 16:44:00 96 /min University of Arterial blood by [facility] byron Pulse oximetry Branch Body height 2023-06-24 15:52:24 162.6 cm [facility] Systolic blood 2023-06-24 15:53:59 150 mm[Hg] Univer sity of pressure [facility] Diastolic blood 2023-06-24 15:53:59 63 mm[Hg] Unive rsity of pressure [facility] Heart rate 2023-06-24 15:53:59 77 /min [facility] Respiratory rate 2023-06-24 15:53:59 12 /min Univ ers[facility] Oxygen saturation in 2023-06-24 15:53:59 100 /min University of Arterial blood by [facility] Pulse oximetry Branch Body height 2023-06-24 15:52:24 162.6 cm [facility] Body weight 2023-06-24 15:52:24 47.628 kg [facility] BMI 2023-06-24 15:52:24 19.03 kg/m2 [facility] Body temperature 2023-06-24 12:29:00 36.11 Britney [facility] Heart rate 2023-06-05 03:20:00 56 /min [facility] Respiratory rate 2023-06-05 03:20:00 20 /min [facility] Oxygen saturation in 2023-06-05 03:20:00 96 /min University of Arterial blood by [facility] Pulse oximetry Branch Systolic blood 2023-06-05 03:15:00 133 mm[Hg] Univer sity of pressure [facility] Diastolic blood 2023-06-05 03:15:00 60 mm[Hg] Unive rsity [facility] Body temperature 2023-06-04 22:13:00 37.11 Britney [facility] Body height 2023-06-04 22:13:00 162.6 cm [facility] Body weight 2023-06-04 22:13:00 49.896 kg [facility] BMI 2023-06-04 22:13:00 18.88 kg/m2 [facility] Respiratory rate 2022-12-29 21:39:00 18 /min Univ ers[facility] Oxygen saturation in 2022-12-29 21:39:00 82 /min University of Arterial blood by [employer] Pulse oximetry Branch Systolic blood 2022-12-29 17:05:00 141 mm[Hg] Univer sity of pressure [facility] Diastolic blood 2022-12-29 17:05:00 50 mm[Hg] Unive rsity of pressure [facility] Heart rate 2022-12-29 17:05:00 82 /min [facility] Body temperature 2022-12-29 17:05:00 36.83 Britney [facility] Body weight 2022-12-29 10:00:00 42.457 kg [facility] BMI 2022-12-29 10:00:00 16.07 kg/m2 [facility] Body height 2022-12-28 08:58:00 162.6 cm [facility] Systolic blood 2022-05-22 16:14:00 166 mm[Hg] [facility] Diastolic blood 2022-05-22 16:14:00 64 mm[Hg] Unive rsity [facility] Heart rate 2022-05-22 16:14:00 71 /min [facility] Body temperature 2022-05-22 16:14:00 36.5 Britney [facility] Respiratory rate 2022-05-22 16:14:00 18 /min [facility] Oxygen saturation in 2022-05-22 16:14:00 95 /min University of Arterial blood by [employer] byron Pulse oxim[facility] Branch Body weight 2022-05-21 18:17:00 50.5 kg [facility] BMI 2022-05-21 18:17:00 19.11 kg/m2 [facility] Body height 2022-05-18 17:00:00 162.6 cm [facility] Systolic blood 2021-11-07 18:27:00 158 mm[Hg] Univer sity of [facility] Diastolic blood 2021-11-07 18:27:00 51 mm[Hg] Unive rsity [facility] Heart rate 2021-11-07 18:27:00 77 /min [facility] Body temperature 2021-11-07 18:27:00 36.83 Britney [facility] Respiratory rate 2021-11-07 18:27:00 16 /min [facility] Oxygen saturation in 2021-11-07 18:27:00 97 /min University of Arterial blood by [place] [employer] P[facility] Branch Body weight 2021-11-07 18:20:00 52.5 kg [facility] BMI 2021-11-07 18:20:00 19.87 kg/m2 [facility] Body height 2021-10-26 03:00:00 162.6 cm [facility] Systolic blood 2021-10-25 16:03:00 139 mm[Hg] Univer sity of [facility] Diastolic blood 2021-10-25 16:03:00 66 mm[Hg] Unive rsity of pressure [facility] Heart rate 2021-10-25 16:03:00 66 /min [facility] Body temperature 2021-10-25 16:03:00 36.44 Britney [facility] Respiratory rate 2021-10-25 16:03:00 24 /min [facility] Oxygen saturation in 2021-10-25 16:03:00 98 /min [facility] Arterial blood by [place] [facility]ron [facility] Branch Systolic blood 2023-05-13 20:01:00 188 mm[Hg] [facility] blood 2023-05-13 20:01:00 68 mm[Hg] [facility] pressure Heart rate 2023-05-13 20:01:00 78 /min [facility] Body temperature 2023-05-13 20:01:00 36.56 Britney [facility] Body height 2023-05-13 20:01:00 160 cm [facility] Body weight 2023-05-13 20:01:00 49.533 kg [facility] BMI 2023-05-13 20:01:00 19.34 kg/m2 [facility] Oxygen saturation in 2023-05-13 20:01:00 96 /min [facility] Arterial blood by Pulse oximetry Systolic blood 2021-11-05 18:00:00 158 mm[Hg] Univer sity [facility] Diastolic blood 2021-11-05 18:00:00 78 mm[Hg] Unive [facility] Heart rate 2021-11-05 18:00:00 85 /min [facility] Body temperature 2021-11-05 14:37:00 36.28 Britney [facility] Res[facility] rate 2021-11-05 14:37:00 20 /min [facility] Oxygen saturation in 2021-11-05 13:51:00 90 /min [facility] Arterial blood by [facility] Pulse oximetry Branch Body weight 2021-11-04 16:40:00 56 kg [facility] BMI 2021-11-04 16:40:00 21.19 kg/m2 [facility] Body height 2021-10-26 03:00:00 162.6 cm [facility] Procedures Procedure Date / Time Performing Clinician Source Performed TROPONIN I 2023-09-20 11:54:00 Jose Antonio Leyva [facility] COMP. METABOLIC PANEL 2023-09-20 11:54:00 [facility] ([id number]) [facility] CBC WITH DIFF 2023-09-20 11:54:00 Singer [facility] N-TERMINAL PRO-BNP 2023-09-20 11:54:00 [facility]REFUSAL FOR 2023-09-20 11:35:56 Doctor Unassigned, [facility] DIAGNOSIS AND TREATMENT [place] [facility] EXTERNAL PROVIDER RECORDS 2023-07-28 05:01:00 Doctor Unassigned, [facility] [place] [facility] POCT GLUCOSE (AUTOMATED) 2023-06-25 16:46:00 Macario Sherman Uni versity [facility] POCT GLUCOSE (AUTOMATED) 2023-06-25 16:46:00 Macario Sherman Uni versity [facility] POCT GLUCOSE (AUTOMATED) 2023-06-25 12:56:00 Macario Sherman Uni versity [facility] POCT GLUCOSE (AUTOMATED) 2023-06-25 12:56:00 Macario Sherman Uni versity [facility] PHOSPHORUS 2023-06-25 09:23:00 Mougouris, [facility] MAGNESIUM 2023-06-25 09:23:00 [facility]OLIC PANEL (NA, 2023-06-25 09:23:00 Mougouris, [facility] K, CL, CO2, GLUCOSE, BUN, Medica l Branch CREATININE, CA) PHOSPHORUS 2023-06-25 09:23:00 Mougouris, [facility] MAGNESIUM 2023-06-25 09:23:00 [facility] METABOLIC PANEL (NA, 2023-06-25 09:23:00 Mougouris, [facility] K, CL, CO2, GLUCOSE, BUN, Medica l Branch CREATININE, CA) CBC WITH DIFF 2023-06-25 09:22:00 [facility] WITH DIFF 2023-06-25 09:22:00 Mobebetois, [facility] POCT GLUCOSE (AUTOMATED) 2023-06-25 01:35:00 Macario Sherman Uni versity [facility] POCT GLUCOSE (AUTOMATED) 2023-06-25 01:35:00 Macario Sherman Uni versity [facility] POCT GLUCOSE (AUTOMATED) 2023-06-24 21:58:00 Macario Sherman Uni versity [facility] POCT GLUCOSE (AUTOMATED) 2023-06-24 21:58:00 Macario Sherman [facility] CARDIAC CATHETERIZATION 2023-06-24 17:12:31 Eva Lowe [facility] CARDIAC CATHETERIZATION 2023-06-24 17:12:31 Eva Lowe [facility] CARDIAC CATHETERIZATION 2023-06-24 17:12:31 Eva Lowe [facility] CARDIAC CATHETERIZATION 2023-06-24 17:12:31 Eva Lowe [facility] CARDIAC CATHETERIZATION 2023-06-24 17:12:31 Eva Lowe [facility] CARDIAC CATHETERIZATION 2023-06-24 17:12:31 Eva Lowe [facility] CARDIAC CATHETERIZATION 2023-06-24 17:12:31 Eva Lowe [facility] CARDIAC CATHETERIZATION 2023-06-24 17:12:31 Eva Lowe Un iversity of [facility] POCT ACT LOW RANGE 2023-06-24 16:25:00 Macario Sherman [facility] POCT ACT LOW RANGE 2023-06-24 16:25:00 Lane Macario [facility] CATH PROCEDURE LOG 2023-06-24 16:01:02 Eva Lowe [facility] CATH PROCEDURE LOG 2023-06-24 16:01:02 Eva Lowe [facility] POCT GLUCOSE (AUTOMATED) 2023-06-24 12:30:00 [facility] ([facility]) 2023-06-24 12:30:00 [facility] PHOSPHORUS 2023-06-24 10:18:00 Handy [facility] MAGNESIUM 2023-06-24 10:18:00 Handy [facility] TROPONIN I 2023-06-24 10:18:00 Handy [facility] BASIC METABOLIC PANEL (NA, 2023-06-24 10:18:00 Tigre Murrell [facility] K, CL, CO2, GLUCOSE, BUN, Medica l Branch CREATININE, CA) CBC WITHOUT DIFF 2023-06-24 10:18:00 Ovvenus, [facility] GLYCOSYLATED HEMOGLOBIN 2023-06-24 10:18:00 Jose Angel [facility] (A1C) [facility] N-TERMINAL PRO-BNP 2023-06-24 10:18:00 Ovvenus [facility] PHOSPHORUS 2023-06-24 10:18:00 Oville, [facility] MAGNESIUM 2023-06-24 10:18:00 Oville, [facility] TROPONIN I 2023-06-24 10:18:00 Oville, [facility] BASIC METABOLIC PANEL (NA, 2023-06-24 10:18:00 Ovvenus, Tigre [facility] K, CL, CO2, GLUCOSE, BUN, Medica l Branch CREATININE, CA) CBC WITHOUT DIFF 2023-06-24 10:18:00 Ovvenus, [facility] GLYCOSYLATED HEMOGLOBIN 2023-06-24 10:18:00 Jose Angel [facility] (A1C) [facility] N-TERMINAL PRO-BNP 2023-06-24 10:18:00 OvTigre donovan [facility] ACTIVATED PARTIAL THRMPLAS 2023-06-24 02:44:00 OvTigre [facility] ACTIVATED PARTIAL THRMPLAS 2023-06-24 02:44:00 OvTigre donovan [facility] POCT GLUCOSE (AUTOMATED) 2023-06-24 02:13:00 Macario Sherman [employer] [facility] POCT GLUCOSE (AUTOMATED) 2023-06-24 02:13:00 Macario Sherman [facility] POCT GLUCOSE (AUTOMATED) 2023-06-23 21:15:00 OvTigre donovan [facility] POCT GLUCOSE (AUTOMATED) 2023-06-23 21:15:00 OvTigre donovan [facility] ACTIVATED PARTIAL THRMPLAS 2023-06-23 18:36:00 OvTigre donovan [facility] ACTIVATED PARTIAL THRMPLAS 2023-06-23 18:36:00 Tigre Murrell [facility] POCT GLUCOSE (AUTOMATED) 2023-06-23 16:56:00 Tigre Murrell [facility] POCT GLUCOSE (AUTOMATED) 2023-06-23 16:56:00 Tigre Murrell [facility] HEPATITIS B SURFACE 2023-06-23 13:43:00 Anwar, [facility] ANTIBODY [facility] HEPATITIS B SURFACE 2023-06-23 13:43:00 Anwar, [facility] ANTIGEN [facility] HEPATITIS B SURFACE 2023-06-23 13:43:00 Anwar, [facility] ANTIBODY [facility] HEPATITIS B SURFACE 2023-06-23 13:43:00 Anwar, [facility] POCT GLUCOSE (AUTOMATED) 2023-06-23 12:26:00 Tigre Murrell [facility] POCT GLUCOSE (AUTOMATED) 2023-06-23 12:26:00 Tigre Murrell [facility] PHOSPHORUS 2023-06-23 06:18:00 [facility] 2023-06-23 06:18:00 Handy [facility] TROPONIN I 2023-06-23 06:18:00 Handy [facility] BASIC METABOLIC PANEL (NA, 2023-06-23 06:18:00 Tigre Murrell [facility] K, CL, CO2, GLUCOSE, BUN, Medica l Branch CREATININE, CA) LIPID PANEL ([id number])(TOTAL 2023-06-23 06:18:00 Tigre Murrell [facility] CHOLESTEROL, [facility] TRIGLYCERIDES, HDL) CBC WITHOUT DIFF 2023-06-23 06:18:00 Tigre Murrell [facility] ACTIVATED PARTIAL THRMPLAS 2023-06-23 06:18:00 Tigre Murrell [facility] N-TERMINAL PRO-BNP 2023-06-23 06:18:00 Tigre Murrell [facility] PHOSPHORUS 2023-06-23 06:18:00 Handy [facility] MAGNESIUM 2023-06-23 06:18:00 Handy [facility] TROPONIN I 2023-06-23 06:18:00 Handy [facility] BASIC METABOLIC PANEL (NA, 2023-06-23 06:18:00 Tigre Murrell [facility] K, CL, CO2, GLUCOSE, BUN, Medica l Branch CREATININE, CA) LIPID PANEL ([id number])(TOTAL 2023-06-23 06:18:00 Tigre [facility]rell [facility]IGLY[facility], HDL) CBC WITHOUT DIFF 2023-06-23 06:18:00 Handy [facility] ACTIVATED PARTIAL THRMPLAS 2023-06-23 06:18:00 Tigre [facility] N-TERMINAL PRO-BNP 2023-06-23 06:18:00 Tigre Murrell [facility] DISCLOSURE AND CONSENT, 2023-06-23 05:01:00 Doctor Unassigned, [facility] MEDICAL AND SURGICAL [place] [facility] PROCEDURES DISCLOSURE AND CONSENT, 2023-06-23 05:01:00 Doctor Unassigned, [facility] MEDICAL AND SURGICAL [place] [facility] PROCEDURES POCT GLUCOSE (AUTOMATED) 2023-06-23 01:23:00 Tigre Murrell [facility] POCT GLUCOSE (AUTOMATED) 2023-06-23 01:23:00 Tigre Murrell [facility] PROTHROMBIN TIME / INR 2023-06-22 23:40:00 [facility] ACTIVATED PARTIAL THRMPLAS 2023-06-22 23:40:00 Tigre Murrell [facility] PROTHROMBIN TIME / INR 2023-06-22 23:40:[address] [facility] ACTIVATED PARTIAL THRMPLAS 2023-06-22 23:40:00 Tigre Murrell [facility] POCT GLUCOSE (AUTOMATED) 2023-06-22 21:49:00 Tigre [facility]rell [facility] POCT GLUCOSE (AUTOMATED) 2023-06-22 21:49:00 Tigre Murrell [facility] PHOSPHORUS 2023-06-22 20:07:00 [facility] 2023-06-22 20:07:00 [facility] 2023-06-22 20:07:00 Handy [facility] BASIC METABOLIC PANEL (NA, 2023-06-22 20:07:00 Tigre Murrell [facility] K, CL, CO2, GLUCOSE, BUN, Medica l Branch CREATININE, CA) PHOSPHORUS 2023-06-22 20:07:00 Handy [facility] MAGNESIUM 2023-06-22 20:07:00 Handy [facility] TROPONIN I 2023-06-22 20:07:00 Handy [facility] BASIC METABOLIC PANEL (NA, 2023-06-22 20:07:00 Tigre Murrell [facility] K, CL, CO2, GLUCOSE, BUN, Medica l Branch CREATININE, CA) TRANSTHORACIC ECHO (TTE) 2023-06-22 19:21:00 Tigre Murrell [facility] TRANSTHORACIC ECHO (TTE) 2023-06-22 19:21:00 Tigre Murrell [facility] TROPONIN I 2023-06-22 17:20:00 Pipe [facility] THYROID STIMULATING 2023-06-22 17:20:00 Pipe [facility] TROPONIN I 2023-06-22 17:20:00 Pipe [facility] THYROID STIMULATING 2023-06-22 17:20:00 Pipe [facility] POCT GLUCOSE (AUTOMATED) 2023-06-22 17:03:00 Oville, Tigre [facility] POCT GLUCOSE (AUTOMATED) 2023-06-22 17:03:00 Tigre Murrell [facility] POCT GLUCOSE (AUTOMATED) 2023-06-22 13:10:00 Tigre Murrell [facility] POCT GLUCOSE (AUTOMATED) 2023-06-22 13:10:00 Tigre Murrell [facility] CT THORAX WO CONTRAST 2023-06-22 09:53:[address] [facility] [address] THORAX WO CONTRAST 2023-06-22 09:53:00 Pipe [facility] PHOSPHORUS 2023-06-22 09:40:00 [facility]UM 2023-06-22 09:40:00 Handy [facility] BASIC METABOLIC PANEL (NA, 2023-06-22 09:40:00 Tigre Murrell [facility] K, CL, CO2, GLUCOSE, BUN, Medica l Branch CREATININE, CA) HEPATITIS B SURFACE 2023-06-22 09:40:00 [facility] HEPATITIS B SURFACE 2023-06-22 09:40:00 [facility] PROCALCITONIN 2023-06-22 09:40:00 Pipe [facility] PHOSPHORUS 2023-06-22 09:40:00 Tigre Murrell [facility] MAGNESIUM 2023-06-22 09:40:00 [facility] BASIC METABOLIC PANEL (NA, 2023-06-22 09:40:00 Tigre Murrell [facility] K, CL, CO2, GLUCOSE, BUN, Medica l Branch CREATININE, CA) HEPATITIS B SURFACE 2023-06-22 09:40:00 Anwar, [facility] ANTIBODY [facility] HEPATITIS B SURFACE 2023-06-22 09:40:00 Anwar, [facility] ANTIGEN [facility] PROCALCITONIN 2023-06-22 09:40:00 Pipe [facility] CRITICAL CARE 2023-06-22 00:08:07 Ovidio Sheets [facility] CRITICAL CARE 2023-06-22 00:08:07 Ovidio Sheets [facility] XR CHEST 1 VW 2023-06-21 23:29:42 Ovidio Sheets [facility] XR CHEST 1 VW 2023-06-21 23:29:42 Ovidio Sheets [facility] XR SHOULDER 2+ VW LEFT 2023-06-21 23:29:26 Ovidio Sheets [facility] [facility] XR SHOULDER 2+ VW LEFT 2023-06-21 23:29:[address] [facility] TROPONIN I 2023-06-21 22:45:00 Ovidio Sheets [facility] COMP. METABOLIC PANEL 2023-06-21 22:45:00 Ovidio Sheets [facility] ([id number]) [facility] CBC WITH DIFF 2023-06-21 22:45:00 Ovidio Sheets [facility] PROTHROMBIN TIME / INR 2023-06-21 22:45:[address] [facility] ACTIVATED PARTIAL THRMPLAS 2023-06-21 22:45:00 Oivdio Sheets [facility] TROPONIN I 2023-06-21 22:45:00 Ovidio Sheets [facility] COMP. METABOLIC PANEL 2023-06-21 22:45:00 Ovidio Sheets [facility] ([id number]) [facility] CBC WITH DIFF 2023-06-21 22:45:00 Ovidio Sheets [facility] PROTHROMBIN TIME / INR 2023-06-21 22:45:[address] [facility] ACTIVATED PARTIAL THRMPLAS 2023-06-21 22:45:00 Ovidio Sheets [facility] HB ECG ROUTINE & RHYTHM 2023-06-21 22:43:39 Ovidio Sheets [facility] HB ECG ROUTINE & RHYTHM 2023-06-21 22:43:39 Ovidio Sheets [facility] CONSENT/REFUSAL FOR 2023-06-21 22:11:39 Doctor Unassigned, [facility] DIAGNOSIS AND TREATMENT [facility] [place] CONSENT/REFUSAL FOR 2023-06-21 22:11:39 Doctor Aaron [facility] DIAGNOSIS AND TREATMENT [facility] [place] HOSPITAL ADMISSION 2023-06-21 05:01:00 Doctor Aaron [facility] [place] EKG (SCANNED DOCUMENTS) 2023-06-21 05:01:00 Doctor Aaron [facility] [place] DISCLOSURE AND CONSENT, 2023-06-21 05:01:00 Doctor Aaron [facility] MEDICAL AND SURGICAL [facility] PROCEDURES HOSPITAL ADMISSION 2023-06-21 05:01:00 Doctor Walker [facility] TROPONIN I 2023-06-05 01:23:00 Magalis Barone [facility] POCT GLUCOSE (AUTOMATED) 2023-06-05 00:27:00 Magalis [facility] XR CHEST 1 VW 2023-06-04 23:24:23 Magalis Barone [facility] TROPONIN I 2023-06-04 22:58:00 Magalis Barone [facility] COMP. METABOLIC PANEL 2023-06-04 22:58:00 Magalis Barone [facility] ([id number]) [facility] CBC WITH DIFF 2023-06-04 22:58:00 Magalis Barone [facility] NOTICE OF PRIVACY 2023-06-04 22:07:46 Doctor Aaron, [facility] PRACTICES [facility] [place] CONSENT/REFUSAL FOR 2023-06-04 22:06:36 Doctor Aaron [facility] DIAGNOSIS AND TREATMENT [facility] [place] US CAROTID DUPLEX 2023-05-13 20:00:00 Sheng Fausto [facility] BILATERAL Patricio-mackenzie URINALYSIS 2022-12-29 14:28:00 Jemima Tao [facility] BASIC METABOLIC PANEL (NA, 2022-12-29 10:19:00 Vidya Downey [facility] K, CL, CO2, GLUCOSE, BUN, Medica l Branch CREATININE, CA) CBC WITH DIFF 2022-12-29 10:19:00 [facility] o f [facility] HEPATITIS B SURFACE 2022-12-28 23:39:00 Minh [facility] ANTIBODY [facility] HEPATITIS B SURFACE 2022-12-28 23:39:00 Minh [facility] ANTIGEN [facility] TRANSTHORACIC ECHO (TTE) 2022-12-28 19:20:00 Ben Wilkinson [facility] XR CHEST 1 VW 2022-12-28 05:44:00 Jemima Tao [facility] LACTIC ACID WHOLE BLOOD 2022-12-28 05:36:00 Jemima [facility] RAPID INFLUENZA A/B 2022-12-28 05:30:00 Jemima Tao [facility] COVID-19 (ID NOW RAPID 2022-12-28 05:30:00 Jemima Tao [facility] TESTING) Medical Branch LAB ONLY COVID 2022-12-28 05:30:00 Jemima Tao [facility] INTERPRETATION [facility] BLOOD CULTURE SCREEN 2022-12-28 05:29:00 Jemima Tao [facility] COMP. METABOLIC PANEL 2022-12-28 05:29:00 Jemima Tao [facility] ([id number]) Medical Branch CBC WITH DIFF 2022-12-28 05:29:00 Jemima Tao [facility] N-TERMINAL PRO-BNP 2022-12-28 05:29:00 Jemima Tao [facility] HB ECG ROUTINE & RHYTHM 2022-12-28 05:22:32 Jemima Tao [facility] CONSENT/REFUSAL FOR 2022-12-28 05:05:08 Doctor Unassigned, [facility] DIAGNOSIS AND TREATMENT [place] [facility] POCT GLUCOSE (AUTOMATED) 2022-05-22 17:12:00 Artemio Valadez [facility] POCT GLUCOSE (AUTOMATED) 2022-05-22 12:34:00 Rory, Artemio Uni [facility] PHOSPHORUS 2022-05-22 09:12:00 Handy [facility] MAGNESIUM 2022-05-22 09:12:00 Handy [facility] COMP. METABOLIC PANEL 2022-05-22 09:12:00 Handy [facility] ([id number]) [facility] [place] CBC WITH DIFF 2022-05-22 09:12:00 Handy [facility] N-TERMINAL PRO-BNP 2022-05-22 09:12:00 Handy [facility] POCT GLUCOSE (AUTOMATED) 2022-05-22 02:11:00 [facility]emio [facility] POCT GLUCOSE (AUTOMATED) 2022-05-22 01:06:00 Artemio [facility] POCT GLUCOSE (AUTOMATED) 2022-05-21 20:58:00 Artemio [facility] POCT GLUCOSE (AUTOMATED) 2022-05-21 16:00:00 Artemio [facility] POCT GLUCOSE (AUTOMATED) 2022-05-21 12:41:00 Artemio Valadez [facility] PHOSPHORUS 2022-05-21 10:26:00 Handy [facility] MAGNESIUM 2022-05-21 10:26:00 Handy [facility] BASIC METABOLIC PANEL (NA, 2022-05-21 10:26:00 Tigre Murrell [facility] K, CL, CO2, GLUCOSE, BUN, Medica l Branch CREATININE, CA) N-TERMINAL PRO-BNP 2022-05-21 10:26:00 Handy [facility] POCT GLUCOSE (AUTOMATED) 2022-05-21 01:42:00 Artemio Valadez [facility] POCT GLUCOSE (AUTOMATED) 2022-05-20 21:53:00 Artemio Valadez [facility] CLOSTRIDIUM DIFFICILE 2022-05-20 17:27:00 Handy [facility] TOXIN [facility] POCT GLUCOSE (AUTOMATED) 2022-05-20 17:07:00 [facility]io [facility] POCT GLUCOSE (AUTOMATED) 2022-05-20 12:35:00 Artemio [facility]z [facility] PHOSPHORUS 2022-05-20 08:57:00 Handy [facility] MAGNESIUM 2022-05-20 08:57:00 Handy [facility] BASIC METABOLIC PANEL (NA, 2022-05-20 08:57:00 Tigre Murrell [facility] K, CL, CO2, GLUCOSE, BUN, Medica l Branch CREATININE, CA) CBC WITH DIFF 2022-05-20 08:57:00 Handy [facility] POCT GLUCOSE (AUTOMATED) 2022-05-20 01:09:00 [facility]io [facility] POCT GLUCOSE (AUTOMATED) 2022-05-19 21:31:00 Artemio [facility] POCT GLUCOSE (AUTOMATED) 2022-05-19 17:49:00 Artemio [facility] CBC WITH DIFF 2022-05-19 14:28:00 Handy [facility] RENAL PANEL 2022-05-19 14:27:00 Minh [facility] HEPATIC FUNCTION PANEL 2022-05-19 14:27:00 Handy [facility] ([id number]) (ALB,T.PRO,BILI Medical Branch T,BU/BC,ALT,AST,ALK PHOS) POCT GLUCOSE (AUTOMATED) 2022-05-19 12:46:00 Artemio [facility]z [facility] PHOSPHORUS 2022-05-19 09:58:00 Handy [facility] LACTATE DEHYDROGENASE 2022-05-19 09:58:00 [facility] MAGNESIUM 2022-05-19 09:58:00 Handy [facility] VITAMIN B12, LEVEL 2022-05-19 09:58:00 Artemio Valadez [facility] FOLATE 2022-05-19 09:58:00 Artemio Valadez [facility] HEPATIC FUNCTION PANEL 2022-05-19 09:58:00 Tigre Murrell [facility] ([id number]) (ALB,T.PRO,BILI [facility] [place] T,BU/BC,ALT,AST,ALK PHOS) BASIC METABOLIC PANEL (NA, 2022-05-19 09:58:00 Tigre Murrell [facility] K, CL, CO2, GLUCOSE, BUN, Medica l Branch CREATININE, CA) PROTHROMBIN TIME / INR 2022-05-19 09:58:[address] [facility] DISCLOSURE AND CONSENT, 2022-05-19 05:01:00 Doctor Unassigned, [facility] MEDICAL AND SURGICAL [facility] PROCEDURES POCT GLUCOSE (AUTOMATED) 2022-05-19 01:25:00 Artemio [facility]z [facility] CRITICAL CARE 2022-05-18 22:54:04 Ovidio Sheets [facility] POCT GLUCOSE (AUTOMATED) 2022-05-18 22:07:00 Artemio [facility]z [facility] CREATINE KINASE 2022-05-18 20:42:00 Artemio Valadez [facility] FERRITIN SERUM 2022-05-18 20:42:00 Artemio Valadez [facility] PROCALCITONIN 2022-05-18 20:42:00 Artemio Valadez [facility] HEPATITIS B SURFACE 2022-05-18 20:41:00 Maria E [facility] ANTIBODY [facility] HEPATITIS B SURFACE 2022-05-18 20:41:00 Maria E [facility] ANTIGEN [facility] MRSA / MSSA SCREEN BY PCR, 2022-05-18 20:41:00 [facility]emio Valadez [facility] 2022-05-18 17:11:00 Art[facility]io [facility] BLOOD CULTURE SCREEN 2022-05-18 13:22:00 Ovidio Sheets [facility] AC PANEL 20 + LACTIC ACID 2022-05-18 13:12:00 [facility] HB ECG ROUTINE & RHYTHM 2022-05-18 13:00:15 Ovidio Sheets [facility] BLOOD CULTURE SCREEN 2022-05-18 12:59:00 Ovidio Sheets [facility] COVID-19 (ID NOW RAPID 2022-05-18 12:56:00 Ovidio Sheets [facility] TESTING) Medical Branch LAB ONLY COVID 2022-05-18 12:56:00 Ovidio Sheets [facility] INTERPRETATION [facility] IRON 2022-05-18 12:54:00 Artemio Valadez [facility] TOTAL IRON BINDING 2022-05-18 12:54:00 [facility] CAPACITY [facility] TROPONIN I 2022-05-18 12:54:00 Ovidio Sheets [facility] COMP. METABOLIC PANEL 2022-05-18 12:54:00 Ovidio Sheets [facility] ([id number]) [facility] CBC WITH DIFF 2022-05-18 12:54:00 Ovidio Shetes [facility] GLYCOSYLATED HEMOGLOBIN 2022-05-18 12:54:00 Artemio Valadez [facility] (A1C) [facility] PROTHROMBIN TIME / INR 2022-05-18 12:54:[address] [facility] ACTIVATED PARTIAL THRMPLAS 2022-05-18 12:54:00 [facility] RETICULOCYTES AUTOMATED 2022-05-18 12:54:00 Artemio Valadez [facility] N-TERMINAL PRO-BNP 2022-05-18 12:54:00 Ovidio Sheets [facility] XR CHEST 1 VW 2022-05-18 12:51:50 Ovidio Sheets [facility] CONSENT/REFUSAL FOR 2022-05-18 12:19:09 Doctor Aaron, [facility] DIAGNOSIS AND TREATMENT [facility] [place] NOTICE OF PRIVACY 2022-05-18 12:18:42 [facility] PRACTICES [facility] [place] AUTHORIZATION FOR RELEASE 2022-01-27 05:01:00 Doctor Aaron, [facility] Name [facility] [place] CBC WITHOUT DIFF 2021-11-07 20:35:00 Елена Wallace [facility] POCT GLUCOSE (AUTOMATED) 2021-11-07 18:29:00 Marks, Shiwan Uni [facility] POCT GLUCOSE (AUTOMATED) 2021-11-07 15:37:00 [facility] 2021-11-07 10:16:00 [facility]IL[facility] TOTAL 2021-11-07 10:16:00 [place] [facility] MAGNESIUM 2021-11-07 10:16:00 Oleg [facility] BILI UNCONJUGATED/BILI 2021-11-07 10:16:00 Madison [facility] BASIC METABOLIC PANEL (NA, 2021-11-07 10:16:00 Pema Dejesus [facility] K, CL, CO2, GLUCOSE, BUN, Medica l Branch CREATININE, CA) CBC WITH DIFF 2021-11-07 10:16:00 Oleg [facility] RETICULOCYTES AUTOMATED 2021-11-07 10:16:00 Madison [facility] POCT GLUCOSE (AUTOMATED) 2021-11-07 09:27:00 Brittany Marks [facility] POCT GLUCOSE (AUTOMATED) 2021-11-07 05:44:00 Brittany Marks [facility] POCT GLUCOSE (AUTOMATED) 2021-11-07 01:30:00 Brittany Marks [facility] POCT GLUCOSE (AUTOMATED) 2021-11-06 23:08:00 Brittany Marks [facility] FL MODIFIED BARIUM SWALLOW 2021-11-06 20:30:00 Pema Dejesus [facility] POCT GLUCOSE (AUTOMATED) 2021-11-06 17:48:00 Brittany Marks [facility] POCT GLUCOSE (AUTOMATED) 2021-11-06 14:08:00 Brittany Marks [facility] PHOSPHORUS 2021-11-06 11:10:00 Da [facility] POCT GLUCOSE (AUTOMATED) 2021-11-06 09:48:00 [facility] PO[facility] GLUCOSE (AUTOMATED) 2021-11-06 06:02:00 [facility] POCT GLUCOSE (AUTOMATED) 2021-11-06 02:02:00 [facility] POCT GLUCOSE (AUTOMATED) 2021-11-05 23:18:00 Brittany Marks versity [facility] POCT GLUCOSE (AUTOMATED) 2021-11-05 17:58:00 Brittany Marks versity [facility] POCT GLUCOSE (AUTOMATED) 2021-11-05 17:58:00 Brittany Marks versity [facility] POCT GLUCOSE (AUTOMATED) 2021-11-05 13:55:00 Brittany Marks versity [facility] POCT GLUCOSE (AUTOMATED) 2021-11-05 13:55:00 Brittany Marks [facility] PHOSPHORUS 2021-11-05 10:26:00 Pema Dejesus [facility] MAGNESIUM 2021-11-05 10:26:00 Pema Dejesus [facility] DIGOXIN 2021-11-05 10:26:00 [facility] BASIC METABOLIC PANEL (NA, 2021-11-05 10:26:00 Pema Dejesus [facility] K, CL, CO2, GLUCOSE, BUN, Medica l Branch CREATININE, CA) CBC WITH DIFF 2021-11-05 10:26:00 Pema Dejesus [facility] PHOSPHORUS 2021-11-05 10:26:00 Pema Dejesus [facility] MAGNESIUM 2021-11-05 10:26:00 [facility] BASIC METABOLIC PANEL (NA, 2021-11-05 10:26:00 Pema Dejesus [facility] K, CL, CO2, GLUCOSE, BUN, Medica l Branch CREATININE, CA) DIGOXIN 2021-11-05 10:26:00 [facility] CBC WITH DIFF 2021-11-05 10:26:00 Pema Dejesus [facility] POCT GLUCOSE (AUTOMATED) 2021-11-05 10:08:00 Brittany Marks [facility] POCT GLUCOSE (AUTOMATED) 2021-11-05 10:08:00 Brittany Marks [facility] POCT GLUCOSE (AUTOMATED) 2021-11-05 06:03:00 Brittany Marks [facility] POCT GLUCOSE (AUTOMATED) 2021-11-05 06:03:00 Brittany Marks [facility] POCT GLUCOSE (AUTOMATED) 2021-11-05 03:13:00 Brittany Marks Uni [facility] POCT GLUCOSE (AUTOMATED) 2021-11-05 03:13:00 Brittany Marks [facility] [place] [facility] POCT GLUCOSE (AUTOMATED) 2021-11-04 23:52:00 Brittany Marks [facility] [place] [facility] POCT GLUCOSE (AUTOMATED) 2021-11-04 23:52:00 Brittany Marks [facility] [place] [facility] XR CHEST 1 VW 2021-11-04 21:27:[address] [facility] [place] [facility] XR CHEST 1 VW 2021-11-04 21:27:00 Oleg [facility] HEPATITIS B SURFACE 2021-11-04 19:29:00 Pema Dejesus [facility] ANTIGEN Medical Branch HEPATITIS B SURFACE 2021-11-04 19:29:00 Oleg [facility] ANTIBODY Medical Branch HBC ANTIBODY (IGM & IGG) 2021-11-04 19:29:00 Pema Dejesus [facility] [place] [facility] HEPATITIS B SURFACE 2021-11-04 19:29:00 Pema Dejesus [facility] ANTIBODY Medical Branch HEPATITIS B SURFACE 2021-11-04 19:29:00 [facility] HBC ANTIBODY (IGM & IGG) 2021-11-04 19:29:00 Pema Dejesus [facility] POCT GLUCOSE (AUTOMATED) 2021-11-04 18:24:00 Brittany Marks [facility] [place] [facility] POCT GLUCOSE (AUTOMATED) 2021-11-04 18:24:00 Brittany Marks [facility] POCT GLUCOSE (AUTOMATED) 2021-11-04 10:20:00 Brittany Marks [facility] [place] [facility] POCT GLUCOSE (AUTOMATED) 2021-11-04 10:20:00 Brittany Marks [facility] [place] [facility] PHOSPHORUS 2021-11-04 09:28:00 Da [facility] PHOSPHORUS 2021-11-04 09:28:00 Da [facility] POCT GLUCOSE (AUTOMATED) 2021-11-04 06:13:00 Brittany Marks [facility] [place] [facility] POCT GLUCOSE (AUTOMATED) 2021-11-04 06:13:00 Brittany Marks versity of [facility] POCT GLUCOSE (AUTOMATED) 2021-11-04 01:34:00 Brittany Marks versity of [facility] POCT GLUCOSE (AUTOMATED) 2021-11-04 01:34:00 Brittany Marks versity of [facility] POCT GLUCOSE (AUTOMATED) 2021-11-03 23:53:00 Brittany Marks versity of [facility] POCT GLUCOSE (AUTOMATED) 2021-11-03 23:53:00 Brittany Marks versity of [facility] CT CHEST PULMONARY 2021-11-03 21:44:15 [facility] ANGIOGRAM Medical Branch CT CHEST PULMONARY 2021-11-03 21:44:15 [facility] ANGIOGRAM Medical Branch POCT GLUCOSE (AUTOMATED) 2021-11-03 19:50:00 Brittany Marks versity of [facility] POCT GLUCOSE (AUTOMATED) 2021-11-03 19:50:00 Brittany Marks versity of [facility] IR CENTRALLY INSERTED 2021-11-03 17:50:56 Inocencio Roberson [facility] [place] DEVICE TUNNELED 5 OR OLDER Medic al Branch NO PORT/PUMP IR CENTRALLY INSERTED 2021-11-03 17:50:[address] [facility] [place] [facility] TUNNELED 5 OR OLDER Medic al Branch NO PORT/PUMP POCT GLUCOSE (AUTOMATED) 2021-11-03 14:35:00 Brittany Marks Uni [facility] [place] [facility] POCT GLUCOSE (AUTOMATED) 2021-11-03 14:35:00 Brittany Marks [facility] PROTHROMBIN TIME / INR 2021-11-03 11:13:00 [facility] D-DIMER 2021-11-03 11:13:00 Oleg [facility] PROTHROMBIN TIME / INR 2021-11-03 11:13:00 [facility] D-DIMER 2021-11-03 11:13:00 Oleg [facility] POCT GLUCOSE (AUTOMATED) 2021-11-03 09:23:00 [facility] POCT GLUCOSE (AUTOMATED) 2021-11-03 09:23:00 Brittany Marks [facility] POCT GLUCOSE (AUTOMATED) 2021-11-03 05:45:00 Brittany Marks [facility] POCT GLUCOSE (AUTOMATED) 2021-11-03 05:45:00 Brittany [facility] POCT GLUCOSE (AUTOMATED) 2021-11-03 02:52:00 Brittany Marks [facility] POCT GLUCOSE (AUTOMATED) 2021-11-03 02:52:00 Britt[facility] CBC WITH DIFF 2021-11-02 23:29:00 Oleg [facility] BASIC METABOLIC PANEL (NA, 2021-11-02 23:29:00 [facility] K, CL, CO2, GLUCOSE, BUN, Medica l Branch CREATININE, CA) PROTHROMBIN TIME / INR 2021-11-02 23:29:00 [facility] BASIC METABOLIC PANEL (NA, 2021-11-02 23:29:00 [facility] K, CL, CO2, GLUCOSE, BUN, Medica l Branch CREATININE, CA) CBC WITH DIFF 2021-11-02 23:29:00 Oleg [facility] PROTHROMBIN TIME / INR 2021-11-02 23:29:00 Sogbein, Jorge [facility] POCT GLUCOSE (AUTOMATED) 2021-11-02 23:10:00 Brittany Marks [facility] POCT GLUCOSE (AUTOMATED) 2021-11-02 23:10:00 Brittany Marks [facility] POCT GLUCOSE (AUTOMATED) 2021-11-02 18:16:00 Brittany Marks [facility] POCT GLUCOSE (AUTOMATED) 2021-11-02 18:16:00 Brittany Marks [facility] OSMOLALITY FECES 2021-11-02 16:32:00 [facility] OSMOLALITY FECES 2021-11-02 16:32:00 Oleg [facility] POCT GLUCOSE (AUTOMATED) 2021-11-02 14:36:00 Brittany Marks [facility] POCT GLUCOSE (AUTOMATED) 2021-11-02 14:36:00 Brittany Marks [facility] ACTIVATED PARTIAL THRMPLAS 2021-11-02 14:29:00 Pema Dejesus [facility] D-DIMER 2021-11-02 14:29:00 Oleg [facility] D-DIMER 2021-11-02 14:29:00 Pema Dejesus [facility] ACTIVATED PARTIAL THRMPLAS 2021-11-02 14:29:00 Pema Dejessu [facility] POCT GLUCOSE (AUTOMATED) 2021-11-02 10:10:00 Brittany Marks [facility] POCT GLUCOSE (AUTOMATED) 2021-11-02 10:10:00 Brittany Marks [facility] BASIC METABOLIC PANEL (NA, 2021-11-02 10:05:00 [facility], CO2, GLUCOSE, BUN, Medica l Branch CREATININE, CA) MAGNESIUM 2021-11-02 10:05:00 Pema Dejesus [facility] PHOSPHORUS 2021-11-02 10:05:00 Oleg [facility] CBC WITH DIFF 2021-11-02 10:05:00 Pema Dejesus [facility] IRON PANEL 2021-11-02 10:05:00 Pema Dejesus [facility] PHOSPHORUS 2021-11-02 10:05:00 Pema Dejesus [facility] MAGNESIUM 2021-11-02 10:05:00 [facility] BASIC METABOLIC PANEL (NA, 2021-11-02 10:05:00 Pema Dejesus [facility] K, CL, CO2, GLUCOSE, BUN, Medica l Branch CREATININE, CA) IRON PANEL 2021-11-02 10:05:00 Pema Dejesus [facility] CBC WITH DIFF 2021-11-02 10:05:00 Pema Dejesus [facility] CLOSTRIDIUM DIFFICILE 2021-11-02 06:08:00 [facility] FECAL LEUKOCYTES 2021-11-02 06:08:00 [facility] POTASSIUM FECES RANDOM 2021-11-02 06:08:[address] [facility] OCCULT (GUAIAC) BLOOD 2021-11-02 06:08:00 Pema Dejesus [facility] POTASSIUM FECES RANDOM 2021-11-02 06:08:00 [facility] OCCULT (GUAIAC) BLOOD 2021-11-02 06:08:00 Pema Dejesus [facility] FECAL LEUKOCYTES 2021-11-02 06:08:00 Pema Dejesus [facility] CLOSTRIDIUM DIFFICILE 2021-11-02 06:08:00 Pema Dejesus [facility] POCT GLUCOSE (AUTOMATED) 2021-11-02 05:51:00 Brittany Marks [facility] POCT GLUCOSE (AUTOMATED) 2021-11-02 05:51:00 Brittany Marks [facility] ACTIVATED PARTIAL THRMPLAS 2021-11-02 05:47:00 [facility] PARTIAL THRMPLAS 2021-11-02 05:47:00 P[facility] HB ECG ROUTINE & RHYTHM 2021-11-02 02:50:07 Da [facility] HB ECG ROUTINE & RHYTHM 2021-11-02 02:50:07 Da [facility] POCT GLUCOSE (AUTOMATED) 2021-11-02 02:07:00 Brittany Marks Uni versity of [facility] POCT GLUCOSE (AUTOMATED) 2021-11-02 02:07:00 Brittany Marks versity of [facility] POCT GLUCOSE (AUTOMATED) 2021-11-01 21:28:00 [facility] POCT GLUCOSE (AUTOMATED) 2021-11-01 21:28:00 Brittany Marks Uni [facility] HB ECG ROUTINE & RHYTHM 2021-11-01 19:25:44 Pema Dejesus [facility] HB ECG ROUTINE & RHYTHM 2021-11-01 19:25:44 [facility] 2021-11-01 19:25:26 [facility] EKG-12 LEAD 2021-11-01 19:25:26 [facility] CBC WITH DIFF 2021-11-01 17:59:00 Oleg [facility] CBC WITH DIFF 2021-11-01 17:59:00 Pema Dejesus [facility] POCT GLUCOSE (AUTOMATED) 2021-11-01 17:35:00 Brittany Marks versity of [facility] POCT GLUCOSE (AUTOMATED) 2021-11-01 17:35:00 Brittany Marks versity of [facility] POCT GLUCOSE (AUTOMATED) 2021-11-01 13:32:00 Brittany Marks versity of [facility] POCT GLUCOSE (AUTOMATED) 2021-11-01 13:32:00 Brittany Marks versity of [facility] PHOSPHORUS 2021-11-01 10:45:00 Inocencio Roberson [facility] COMP. METABOLIC PANEL 2021-11-01 10:45:00 [id number] MAGNESIUM 2021-11-01 10:45[facility]00 [facility] 2021-11-01 10:45:00 [facility] 2021-11-01 10:45:00 Inocencio Roberson [facility] MAGNESIUM 2021-11-01 10:45:00 Oleg [facility] THYROID STIMULATING 2021-11-01 10:45:[address] [facility] COMP. METABOLIC PANEL 2021-11-01 10:45:00 Pema Dejesus [facility] ([id number]) [facility] POCT GLUCOSE (AUTOMATED) 2021-11-01 10:20:00 [facility]SE ([facility]ATED) 2021-11-01 10:20:00 Brittany Marks Uni versity of [facility] POCT GLUCOSE (AUTOMATED) 2021-11-01 06:00:00 Brittany Marks versity of [facility] POCT GLUCOSE (AUTOMATED) 2021-11-01 06:00:00 [facility] PO[facility]UCOSE (AUTOMATED) 2021-11-01 01:44:00 Brittany Marks versity of [facility] POCT GLUCOSE (AUTOMATED) 2021-11-01 01:44:00 Brittany Marks versity [facility] [place] MODIFIED BARIUM SWALLOW 2021-10-31 22:05:00 Inocencio Roberson [facility] [place] MODIFIED BARIUM SWALLOW 2021-10-31 22:05:00 [facility]SE ([facility]OMATED) 2021-10-31 19:05:00 Brittany Marks versity of [facility] POCT GLUCOSE (AUTOMATED) 2021-10-31 19:05:00 Brittany Marks versity [facility] POCT GLUCOSE (AUTOMATED) 2021-10-31 14:40:00 Brittany Marks versity of [facility] POCT GLUCOSE (AUTOMATED) 2021-10-31 14:40:00 Brittany Marks versity of [facility] CBC WITH DIFF 2021-10-31 10:35:00 Wallace, [facility] CBC WITH DIFF 2021-10-31 10:35:00 Wallace, [facility] BASIC METABOLIC PANEL (NA, 2021-10-31 10:34:00 Wallace, [facility] K, CL, CO2, GLUCOSE, BUN, Medica l Branch CREATININE, CA) BASIC METABOLIC PANEL (NA, 2021-10-31 10:34:00 Wallace, [facility], CL, CO2, GLUCOSE, BUN, Medica l Branch CREATININE, CA) POCT GLUCOSE (AUTOMATED) 2021-10-31 10:33:00 Brittany Marks versity of [facility] POCT GLUCOSE (AUTOMATED) 2021-10-31 10:33:00 Brittany Marks Uni versity of [facility] POCT GLUCOSE (AUTOMATED) 2021-10-31 06:09:00 Brittany Marks versity of [facility] POCT GLUCOSE (AUTOMATED) 2021-10-31 06:09:00 Brittany Marks versity of [facility] POCT GLUCOSE (AUTOMATED) 2021-10-31 03:12:00 Brittany Marks versity of [facility] POCT GLUCOSE (AUTOMATED) 2021-10-31 03:12:00 Brittany Marks versity of [facility] CBC WITHOUT DIFF 2021-10-30 17:44:00 [facility] WITHOUT DIFF 2021-10-30 17:44:00 Noni [facility] POCT GLUCOSE (AUTOMATED) 2021-10-30 17:39:00 Jagdish Floyd Uni versity of [facility] POCT GLUCOSE (AUTOMATED) 2021-10-30 17:39:00 Jagdish Floyd Uni versity [facility] POCT GLUCOSE (AUTOMATED) 2021-10-30 13:44:00 Jagdish Floyd Uni versity [facility] POCT GLUCOSE (AUTOMATED) 2021-10-30 13:44:00 Jagdish Floyd Uni versity [facility] BASIC METABOLIC PANEL (NA, 2021-10-30 10:21:00 Dostal, [facility] K, CL, CO2, GLUCOSE, BUN, Medica l Branch CREATININE, CA) MAGNESIUM 2021-10-30 10:21:00 Dostal, [facility] PHOSPHORUS 2021-10-30 10:21:00 Dostal, [facility] CBC WITHOUT DIFF 2021-10-30 10:21:00 Noni [facility] PHOSPHORUS 2021-10-30 10:21:00 Dostal [facility] MAGNESIUM 2021-10-30 10:21:00 Dostal, [facility] BASIC METABOLIC PANEL (NA, 2021-10-30 10:21:00 Dostal, [facility] K, CL, CO2, GLUCOSE, BUN, Medica l Branch CREATININE, CA) CBC WITHOUT DIFF 2021-10-30 10:21:00 [facility] WITHOUT DIFF 2021-10-30 01:51:00 [facility] CBC WITHOUT DIFF 2021-10-30 01:51:00 [facility] PO[facility] GLUCOSE (AUTOMATED) 2021-10-30 01:50:00 Jagdish Floyd Uni versity [facility] POCT GLUCOSE (AUTOMATED) 2021-10-30 01:50:00 Jagdish Floyd Uni versity [facility] BASIC METABOLIC PANEL (NA, 2021-10-29 22:25:00 Jacob Saini [facility] K, CL, CO2, GLUCOSE, BUN, Medica l Branch CREATININE, CA) MAGNESIUM 2021-10-29 22:25:00 Parveen [facility] MAGNESIUM 2021-10-29 22:25:00 Parveen [facility] BASIC METABOLIC PANEL (NA, 2021-10-29 22:25:00 Jacob Saini [facility] K, CL, CO2, GLUCOSE, BUN, Medica l Branch CREATININE, CA) POCT GLUCOSE (AUTOMATED) 2021-10-29 21:36:00 Jagdish Floyd Uni versity of [facility] POCT GLUCOSE (AUTOMATED) 2021-10-29 21:36:00 Jagdish Floyd Uni versity [facility] CBC WITHOUT DIFF 2021-10-29 19:14:00 Deyvi [facility] CBC WITHOUT DIFF 2021-10-29 19:14:00 Deyvi [facility] POCT GLUCOSE (AUTOMATED) 2021-10-29 17:40:00 Jagdish Floyd Uni versity of [facility] POCT GLUCOSE (AUTOMATED) 2021-10-29 17:40:00 Jagdish Floyd Uni versity of [facility] POCT GLUCOSE (AUTOMATED) 2021-10-29 15:42:00 Jagdish Floyd Uni versity of [facility] POCT GLUCOSE (AUTOMATED) 2021-10-29 15:42:00 Jagdish Floyd Uni versity of [facility] POCT GLUCOSE (AUTOMATED) 2021-10-29 13:40:00 Jagdish Floyd Uni versity of [facility] POCT GLUCOSE (AUTOMATED) 2021-10-29 13:40:00 Jagdish Floyd Uni versity of [facility] AC PANEL 21 + LACTIC ACID 2021-10-29 10:13:00 Rosendo Atwood [facility] CBC WITH DIFF 2021-10-29 10:13:00 Mandeep Worley [facility] BASIC METABOLIC PANEL (NA, 2021-10-29 10:13:00 Brunilda [facility] K, CL, CO2, GLUCOSE, BUN, Medica l Branch CREATININE, CA) MAGNESIUM 2021-10-29 10:13:00 Brunilda [facility] PHOSPHORUS 2021-10-29 10:13:00 Brunilda [facility] PHOSPHORUS 2021-10-29 10:13:00 Brunilda [facility] MAGNESIUM 2021-10-29 10:13:00 Brunilda [facility] BASIC METABOLIC PANEL (NA, 2021-10-29 10:13:00 Ana [facility] K, CL, CO2, GLUCOSE, BUN, Medica l Branch CREATININE, CA) CBC WITH DIFF 2021-10-29 10:13:00 Ana [facility] AC PANEL 21 + LACTIC ACID 2021-10-29 10:13:00 Rosendo Atwood [facility] POCT GLUCOSE (AUTOMATED) 2021-10-29 10:11:00 Jagdish Floyd Uni versity of [facility] POCT GLUCOSE (AUTOMATED) 2021-10-29 10:11:00 Jagdish Floyd Uni versity of [facility] POCT GLUCOSE (AUTOMATED) 2021-10-29 06:04:00 Jagdish Floyd Uni versity of [facility] POCT GLUCOSE (AUTOMATED) 2021-10-29 06:04:00 Jagdish Floyd Uni versity of [facility] POCT GLUCOSE (AUTOMATED) 2021-10-29 01:18:00 Jagdish Floyd Uni versity of [facility] POCT GLUCOSE (AUTOMATED) 2021-10-29 01:18:00 Jagdish Floyd Uni versity [facility] AC PANEL 20 + LACTIC ACID 2021-10-28 23:04:00 [facility] PANEL 20 + LACTIC ACID 2021-10-28 23:04:00 Bandar [facility] POCT GLUCOSE (AUTOMATED) 2021-10-28 23:03:00 Jagdish Floyd Uni versity of [facility] POCT GLUCOSE (AUTOMATED) 2021-10-28 23:03:00 Jagdish Floyd Uni versity [facility] CBC WITHOUT DIFF 2021-10-28 18:37:00 John, [facility] CBC WITHOUT DIFF 2021-10-28 18:37:00 John [facility] POCT GLUCOSE (AUTOMATED) 2021-10-28 18:06:00 Jagdish Floyd Uni versity [facility] POCT GLUCOSE (AUTOMATED) 2021-10-28 18:06:00 Jagdish Floyd Uni versity [facility] AC PANEL 20 + LACTIC ACID 2021-10-28 15:51:00 Suraj Almazan iversity [facility] AC PANEL 20 + LACTIC ACID 2021-10-28 15:51:00 Suraj Almazan iversity [facility] POCT GLUCOSE (AUTOMATED) 2021-10-28 15:47:00 Jagdish Floyd Uni versity [facility] POCT GLUCOSE (AUTOMATED) 2021-10-28 15:47:00 Jagdish Floyd Uni versity [facility] BASIC METABOLIC PANEL (NA, 2021-10-28 09:57:00 Shanna Cardenas [facility] K, CL, CO2, GLUCOSE, BUN, Medica l Branch CREATININE, CA) AC PANEL 20 + LACTIC ACID 2021-10-28 09:57:00 Suraj [facility] PHOS[facility]US 2021-10-28 09:57:00 Jose [facility] PHOSPHORUS 2021-10-28 09:57:00 [facility] BASIC METABOLIC PANEL (NA, 2021-10-28 09:57:00 Shanna Cardenas [facility] K, CL, CO2, GLUCOSE, BUN, Medica l Branch CREATININE, CA) AC PANEL 20 + LACTIC ACID 2021-10-28 09:57:00 Suraj Almazan iversity [facility] POCT GLUCOSE (AUTOMATED) 2021-10-28 09:56:00 Jagdish Floyd Uni versity [facility] POCT GLUCOSE (AUTOMATED) 2021-10-28 09:56:00 Jagdish Floyd Uni versity [facility] AC PANEL 20 + LACTIC ACID 2021-10-28 07:56:00 Suraj Almazan iversity [facility] AC PANEL 20 + LACTIC ACID 2021-10-28 07:56:00 [facility] AC PANEL 21 + LACTIC ACID 2021-10-28 05:49:00 [facility] AC PANEL 21 + LACTIC ACID 2021-10-28 05:49:00 Ronald [facility] BASIC METABOLIC PANEL (NA, 2021-10-28 05:48:00 [facility]as[facility] [place] K, CL, CO2, GLUCOSE, BUN, Medica l Branch CREATININE, CA) BASIC METABOLIC PANEL (NA, 2021-10-28 05:48:00 CardenasShanna [facility] [place] K, CL, CO2, GLUCOSE, BUN, Medica l Branch CREATININE, CA) POCT GLUCOSE (AUTOMATED) 2021-10-28 05:47:00 Jagdish Floyd Uni versity of [facility] POCT GLUCOSE (AUTOMATED) 2021-10-28 05:47:00 Jagdish Floyd Uni versity of [facility] BASIC METABOLIC PANEL (NA, 2021-10-28 01:57:00 CardenasShanna [facility] [place] K, CL, CO2, GLUCOSE, BUN, Medica l Branch CREATININE, CA) BASIC METABOLIC PANEL (NA, 2021-10-28 01:57:00 CardenasShanna [facility] [place] K, CL, CO2, GLUCOSE, BUN, Medica l Branch CREATININE, CA) AC PANEL 20 + LACTIC ACID 2021-10-28 01:41:00 Shanna Cardenas iversity [facility] AC PANEL 20 + LACTIC ACID 2021-10-28 01:41:00 [facility] POCT GLUCOSE (AUTOMATED) 2021-10-28 01:40:00 Jagdish Floyd Uni versity of [facility] POCT GLUCOSE (AUTOMATED) 2021-10-28 01:40:00 Jagdish Floyd Uni versity of [facility] XR CHEST 1 VW 2021-10-27 23:30:00 Shanna Cardenas [facility] XR CHEST 1 VW 2021-10-27 23:30:00 Ronald [facility] XR CHEST 1 2021-10-27 23:08:00 Ronald [facility] XR CHEST 1 2021-10-27 23:08:00 Cardenas [facility] HB ECG ROUTINE & RHYTHM 2021-10-27 23:04:21 Ronald [facility] HB ECG ROUTINE & RHYTHM 2021-10-27 23:04:21 Ronald [facility] ABG+COOX+NA+K+GLU+CA2+ 2021-10-27 22:50:00 [facility] ABG+COOX+NA+K+GLU+CA2+ 2021-10-27 22:50:[address] [facility] XR CHEST 1 2021-10-27 22:24:00 Ronald [facility] XR CHEST 1 2021-10-27 22:24:00 Ronald [facility] BASIC METABOLIC PANEL (NA, 2021-10-27 22:17:00 Shanna Cardenas [facility] K, CL, CO2, GLUCOSE, BUN, Medica l Branch CREATININE, CA) AC PANEL 21 + LACTIC ACID 2021-10-27 22:17:00 Shanna Cardenas [facility] BASIC METABOLIC PANEL (NA, 2021-10-27 22:17:00 Shanna Cardenas [facility] K, CL, CO2, GLUCOSE, BUN, Medica l Branch CREATININE, CA) AC PANEL 21 + LACTIC ACID 2021-10-27 22:17:00 Shanna Cardenas [facility] POCT GLUCOSE (AUTOMATED) 2021-10-27 22:13:00 Jagdish Floyd Uni [facility] POCT GLUCOSE (AUTOMATED) 2021-10-27 22:13:00 Jagdish Floyd Uni [facility] BASIC METABOLIC PANEL (NA, 2021-10-27 18:07:00 Shanna Cardenas [facility] [facility] [place] K, CL, CO2, GLUCOSE, BUN, Medica l Branch CREATININE, CA) AC PANEL 21 + LACTIC ACID 2021-10-27 18:07:00 Shanna Cardenas iversity of [facility] BASIC METABOLIC PANEL (NA, 2021-10-27 18:07:00 Shanna Cardenas [facility] [place] K, CL, CO2, GLUCOSE, BUN, Medica l Branch CREATININE, CA) AC PANEL 21 + LACTIC ACID 2021-10-27 18:07:00 Shanna Cardenas iversity of [facility] POCT GLUCOSE (AUTOMATED) 2021-10-27 17:53:00 Jagdish Floyd Uni versity of [facility] POCT GLUCOSE (AUTOMATED) 2021-10-27 17:53:00 Jagdish Floyd Uni versity of [facility] TRANSTHORACIC ECHO (TTE) 2021-10-27 15:09:22 Dosdash Carlo Uni versity of [facility] TRANSTHORACIC ECHO (TTE) 2021-10-27 15:09:22 Joseluis Carness Uni versity of [facility] POCT GLUCOSE (AUTOMATED) 2021-10-27 14:14:00 Jagdish Floyd Uni versity of [facility] POCT GLUCOSE (AUTOMATED) 2021-10-27 14:14:00 Jagdish Floyd Uni versity of [facility] BASIC METABOLIC PANEL (NA, 2021-10-27 13:33:00 Shanna Cardenas [facility] [place] K, CL, CO2, GLUCOSE, BUN, Medica l Branch CREATININE, CA) AC PANEL 21 + LACTIC ACID 2021-10-27 13:33:00 Shanna Cardenas iversity of [facility] BASIC METABOLIC PANEL (NA, 2021-10-27 13:33:00 Shanna Cardenas [facility] [place] K, CL, CO2, GLUCOSE, BUN, Medica l Branch CREATININE, CA) AC PANEL 21 + LACTIC ACID 2021-10-27 13:33:00 Shanna Cardenas iversity of [facility] AC PANEL 21 + LACTIC ACID 2021-10-27 09:48:00 Shanna Cardenas iversity of [facility] BASIC METABOLIC PANEL (NA, 2021-10-27 09:48:00 Cardenas Shanna Connolly niversity [facility] K, CL, CO2, GLUCOSE, BUN, Medica l Branch CREATININE, CA) MAGNESIUM 2021-10-27 09:48:00 Shanna Cardenas [facility] MAGNESIUM 2021-10-27 09:48:00 Ronald [facility] BASIC METABOLIC PANEL (NA, 2021-10-27 09:48:00 Shanna Cardenas niversity [facility] K, CL, CO2, GLUCOSE, BUN, Medica l Branch CREATININE, CA) AC PANEL 21 + LACTIC ACID 2021-10-27 09:48:00 [facility] POCT GLUCOSE (AUTOMATED) 2021-10-27 09:46:00 Jagdish Floyd Uni versity [facility] POCT GLUCOSE (AUTOMATED) 2021-10-27 09:46:00 Jagdish Floyd Uni versity [facility] BASIC METABOLIC PANEL (NA, 2021-10-27 05:26:00 Shanna Cardenas niversity [facility] K, CL, CO2, GLUCOSE, BUN, Medica l Branch CREATININE, CA) MAGNESIUM 2021-10-27 05:26[facility]-10-27 [facility]:26[facility] 2021-10-27 05:26:00 [facility]UM 2021-10-27 05:26:00 [facility] BASIC METABOLIC PANEL (NA, 2021-10-27 05:26:00 Shanna Cardenas niversity [facility] K, CL, CO2, GLUCOSE, BUN, Medica l Branch CREATININE, CA) POCT GLUCOSE (AUTOMATED) 2021-10-27 05:24:00 Jagdish Floyd Uni versity [facility] POCT GLUCOSE (AUTOMATED) 2021-10-27 05:24:00 Jagdish Floyd Uni versity [facility] AC PANEL 21 + LACTIC ACID 2021-10-27 03:25:00 Shanna Cardenas iversity [facility] AC PANEL 21 + LACTIC ACID 2021-10-27 03:25:00 [facility] AC PANEL 21 + LACTIC ACID 2021-10-27 01:31:00 Shanna Cardenas [facility] BASIC METABOLIC PANEL (NA, 2021-10-27 01:31:00 Shanna Cardenas [facility] K, CL, CO2, GLUCOSE, BUN, Medica l Branch CREATININE, CA) HEPATITIS B SURFACE 2021-10-27 01:31:00 Rawala, [facility]TIBODY [facility] 2021-10-27 01:31:00 Rawala, [facility] ANTIGEN [facility] ANTIBODY (IGM & IGG) 2021-10-27 01:31:00 Rawala, Hammond [facility] BASIC METABOLIC PANEL (NA, 2021-10-27 01:31:00 Shanna Cardenas [facility] K, CL, CO2, GLUCOSE, BUN, Medica l Branch CREATININE, CA) HEPATITIS B SURFACE 2021-10-27 01:31:00 Rawala, [facility] ANTIBODY [facility]IT[facility] B SURFACE 2021-10-27 01:31:00 Rawala, [facility] ANTIGEN [facility] ANTIBODY (IGM & IGG) 2021-10-27 01:31:00 Andrzejall Hammond [facility] AC PANEL 21 + LACTIC ACID 2021-10-27 01:31:00 Shanna Cardenas [facility] POCT GLUCOSE (AUTOMATED) 2021-10-27 01:30:00 Jagdish Floyd Uni versity of [facility] POCT GLUCOSE (AUTOMATED) 2021-10-27 01:30:00 Jagdish Floyd Uni versity of [facility] POCT GLUCOSE (AUTOMATED) 2021-10-26 22:44:00 Jagdish Floyd Uni versity [facility] POCT GLUCOSE (AUTOMATED) 2021-10-26 22:44:00 [facility]ish [facility] CONTRAST 2021-10-26 22:24:00 Shanna Cardenas [facility] CT ABDOMEN PELVIS WO 2021-10-26 22:24:00 Shanna Cardenas [facility] CT ABDOMEN PELVIS WO 2021-10-26 22:24:00 Shanna Cardenas [facility] CT HEAD WO CONTRAST 2021-10-26 22:24:00 Shanna Cardenas [facility] AC PANEL 21 + LACTIC ACID 2021-10-26 21:51:00 [facility] + LACTIC ACID 2021-10-26 21:51:00 Shanna Cardenas [facility] CBC WITH DIFF 2021-10-26 21:48:00 Ronald [facility] CBC WITH DIFF 2021-10-26 21:48:00 Ronald [facility] MRSA / MSSA SCREEN BY PCR, 2021-10-26 21:47:00 Sergio Segovia [facility] BASIC METABOLIC PANEL (NA, 2021-10-26 21:47:00 Ronald [facility] K, CL, CO2, GLUCOSE, BUN, Medica l Branch CREATININE, CA) BASIC METABOLIC PANEL (NA, 2021-10-26 21:47:00 Ronald [facility] K, CL, CO2, GLUCOSE, BUN, Medica l Branch CREATININE, CA) MRSA / MSSA SCREEN BY PCR, 2021-10-26 21:47:00 Sergio Segovia [facility] XR KUB 2021-10-26 21:18:00 Ronald [facility] XR KUB 2021-10-26 21:18:00 Ronald [facility] XR ABDOMEN 1 VW 2021-10-26 20:16:00 Ronald [facility] XR ABDOMEN 1 VW 2021-10-26 20:16:00 Ronald [facility] AC PANEL 21 + LACTIC ACID 2021-10-26 18:53:00 Shanna Cardenas [facility] BASIC METABOLIC PANEL (NA, 2021-10-26 18:53:00 Shanna Cardenas [facility] K, CL, CO2, GLUCOSE, BUN, Medica l Branch CREATININE, CA) MAGNESIUM 2021-10-26 18:53:00 [facility] 2021-10-26 18:53:00 Ronald [facility] PHOSPHORUS 2021-10-26 18:53:00 Ronald [facility] MAGNESIUM 2021-10-26 18:53:00 Ronald [facility] BASIC METABOLIC PANEL (NA, 2021-10-26 18:53:00 Shanna Cardenas [facility] K, CL, CO2, GLUCOSE, BUN, Medica l Branch CREATININE, CA) AC PANEL 21 + LACTIC ACID 2021-10-26 18:53:00 Shanna Cardenas [facility] POCT GLUCOSE (AUTOMATED) 2021-10-26 18:45:00 Jagdish Floyd Uni [facility] POCT GLUCOSE (AUTOMATED) 2021-10-26 18:45:00 Jagdish Floyd Uni [facility] AC PANEL 20 + LACTIC ACID 2021-10-26 16:41:00 Shanna Cardenas [facility] AC PANEL 20 + LACTIC ACID 2021-10-26 16:41:00 [facility] RBC 2021-10-26 16:08:23 Sergio Segovia [facility] PREPARE PACKED RBC 2021-10-26 16:08:23 Sergio Segovia [facility] AC PANEL 21 + LACTIC ACID 2021-10-26 13:49:00 Rosendo Atwood [facility] BASIC METABOLIC PANEL (NA, 2021-10-26 13:49:00 Rosendo Awtood [facility] K, CL, CO2, GLUCOSE, BUN, Medica l Branch CREATININE, CA) BASIC METABOLIC PANEL (NA, 2021-10-26 13:49:00 Rosendo Atwood [facility] K, CL, CO2, GLUCOSE, BUN, Medica l Branch CREATININE, CA) AC PANEL 21 + LACTIC ACID 2021-10-26 13:49:00 Rosendo Atwood [facility] POCT GLUCOSE (AUTOMATED) 2021-10-26 13:41:00 Jagdish Floyd Uni [facility] POCT GLUCOSE (AUTOMATED) 2021-10-26 13:41:00 Jagdish Floyd Uni [facility] POCT GLUCOSE (AUTOMATED) 2021-10-26 13:39:00 Jagdish Floyd Uni [facility] POCT GLUCOSE (AUTOMATED) 2021-10-26 13:39:00 Jagdish Floyd [facility] ABORH CONFIRMATION (LAB 2021-10-26 12:09:00 Sergio Segovia [facility]) Medical Branch ABORH CONFIRMATION (LAB 2021-10-26 12:09:00 Sergio Segovia [facility] Medical Branch US RETROPERITONEAL LIMITED 2021-10-26 11:55:41 Rosendo Atwood [facility] US RETROPERITONEAL LIMITED 2021-10-26 11:55:41 Rosendo Atwood [facility] AC PANEL 21 + LACTIC ACID 2021-10-26 11:26:00 Rosendo Atwood [facility] BASIC METABOLIC PANEL (NA, 2021-10-26 11:26:00 Rosendo Atwood [facility] K, CL, CO2, GLUCOSE, BUN, Medica l Branch CREATININE, CA) INTACT PTH CALCIUM GROUP 2021-10-26 11:26:00 Sergio Segovia [facility] VITAMIN D, 25-OH 2021-10-26 11:26:00 Sergio Segovia [facility] BASIC METABOLIC PANEL (NA, 2021-10-26 11:26:00 Rosendo Atwood [facility] K, CL, CO2, GLUCOSE, BUN, Medica l Branch CREATININE, CA) INTACT PTH CALCIUM GROUP 2021-10-26 11:26:00 Sergio Segovia [facility] VITAMIN D, 25-OH 2021-10-26 11:26:00 Sergio Segovia [facility] AC PANEL 21 + LACTIC ACID 2021-10-26 11:26:00 Rosendo Atwood [facility] HB INDIRECT ANTIGLOBULIN 2021-10-26 11:20:00 Luca Sergio Kat [facility] ABOR INVESTIGATION 2021-10-26 11:20:00 Sergio Segovia [facility] HB INDIRECT ANTIGLOBULIN 2021-10-26 11:20:00 Sergio Segovia [facility] ABORH INVESTIGATION 2021-10-26 11:20:00 Sergio Segovia [facility] AC PANEL 21 + LACTIC ACID 2021-10-26 08:48:00 Rosendo Atwood [facility] AC PANEL 21 + LACTIC ACID 2021-10-26 08:48:00 Rosendo Atwood [facility] BASIC METABOLIC PANEL (NA, 2021-10-26 08:47:00 Rosendo Atwood [facility] K, CL, CO2, GLUCOSE, BUN, Medica l Branch CREATININE, CA) CBC WITH DIFF 2021-10-26 08:47:00 Rosendo Atwood [facility] PROTHROMBIN TIME / INR 2021-10-26 08:47:00 Rosendo Atwood Un [facility] ACTIVATED PARTIAL THRMPLAS 2021-10-26 08:47:00 Rosendo Atwood [facility] PHOSPHORUS 2021-10-26 08:47:00 [facility] PHOSPHORUS 2021-10-26 08:47:00 [facility] BASIC METABOLIC PANEL (NA, 2021-10-26 08:47:00 Rosendo Atwood [facility] K, CL, CO2, GLUCOSE, BUN, Medica l Branch CREATININE, CA) CBC WITH DIFF 2021-10-26 08:47:00 Rosendo Atwood [facility] PROTHROMBIN TIME / INR 2021-10-26 08:47:00 Rosendo Atwood Un [facility] ACTIVATED PARTIAL THRMPLAS 2021-10-26 08:47:00 Rosendo Atwood [facility] BASIC METABOLIC PANEL (NA, 2021-10-26 05:52:00 Rosendo Atwood [facility] K, CL, CO2, GLUCOSE, BUN, Medica l Branch CREATININE, CA) BASIC METABOLIC PANEL (NA, 2021-10-26 05:52:00 Rosendo Atwood [facility] K, CL, CO2, GLUCOSE, BUN, Medica l Branch CREATININE, CA) OSMOLALITY URINE 2021-10-26 05:45:00 Nakul Richardson [facility] SODIUM, URINE RANDOM 2021-10-26 05:45:00 Rosendo Atwood [facility] PROTEIN CREAT RATIO URINE 2021-10-26 05:45:00 [facility] NITROGEN, URINE 2021-10-26 05:45:00 Sergio Segovia [facility] POTASSIUM, URINE RANDOM 2021-10-26 05:45:00 [facility] CHLORIDE, URINE RANDOM 2021-10-26 05:45:[address] [facility] OSMOLALITY URINE 2021-10-26 05:45:00 Dylan Nakul [facility] PROTEIN CREAT RATIO URINE 2021-10-26 05:45:00 Sergio Segovia [facility] UREA NITROGEN, URINE 2021-10-26 05:45:00 Sergio Segovia [facility] POTASSIUM, URINE RANDOM 2021-10-26 05:45:00 [facility] SODIUM, URINE RANDOM 2021-10-26 05:45:00 Rosendo Atwood [facility] CHLORIDE, URINE RANDOM 2021-10-26 05:45[facility] + LACTIC ACID 2021-10-26 05:38:00 Rosendo Atwood [facility] AC PANEL 20 + LACTIC ACID 2021-10-26 05:38:00 Rosendo Atwood [facility] AC PANEL 21 + LACTIC ACID 2021-10-26 00:07:00 Rosendo Atwood [facility] AC PANEL 21 + LACTIC ACID 2021-10-26 00:07:00 Rosendo Atwood [facility] BASIC METABOLIC PANEL (NA, 2021-10-25 23:58:00 Rosendo Atwood [facility] K, CL, CO2, GLUCOSE, BUN, Medica l Branch CREATININE, CA) PROCALCITONIN 2021-10-25 23:58:00 Rosendo Atwood [facility] TROPONIN I 2021-10-25 23:58:00 Rosendo Atwood [facility] PHOSPHORUS 2021-10-25 23:58:00 Rosendo Atwood [facility] MAGNESIUM 2021-10-25 23:58:00 Rosendo Atwood [facility] BETA HYDROXY-BUTYRATE 2021-10-25 23:58:00 Rosendo Atwood [facility] OSMOLALITY, SERUM OR 2021-10-25 23:58:00 Nakul Richardson [facility] IRON PANEL 2021-10-25 23:58:00 [facility] FERRITIN SERUM 2021-10-25 23:58:00 [facility] PHOSPHORUS 2021-10-25 23:58:00 Rosendo Atwood [facility] MAGNESIUM 2021-10-25 23:58:00 Rosendo Atwood [facility] FERRITIN SERUM 2021-10-25 23:58:00 [facility] OSMOLALITY, SERUM OR 2021-10-25 23:58:00 Nakul Richardson [facility] BETA HYDROXY-BUTYRATE 2021-10-25 23:58:00 Rosendo Atwood [facility] TROPONIN I 2021-10-25 23:58:00 Rosendo Atwood [facility] BASIC METABOLIC PANEL (NA, 2021-10-25 23:58:00 Rosendo Atwood [facility] K, CL, CO2, GLUCOSE, BUN, Medica l Branch CREATININE, CA) IRON PANEL 2021-10-25 23:58:00 Sergio Segovia [facility] PROCALCITONIN 2021-10-25 23:58:00 Rosendo Atwood [facility] BASIC METABOLIC PANEL (NA, 2021-10-25 19:33:00 Artemio Valadez [facility] K, CL, CO2, GLUCOSE, BUN, Medica l Branch CREATININE, CA) SALICYLATE 2021-10-25 19:33:00 Rosendo Atwood [facility] BASIC METABOLIC PANEL (NA, 2021-10-25 19:33:00 Artemio Valadez [facility] K, CL, CO2, GLUCOSE, BUN, Medica l Branch CREATININE, CA) SALICYLATE 2021-10-25 19:33:00 Rosendo Atwood [facility] ACUTE CARE VENOUS BLOOD 2021-10-25 19:20:00 Brenda [facility] ACUTE CARE VENOUS BLOOD 2021-10-25 19:20:00 Brenda [facility] BLOOD CULTURE SCREEN 2021-10-25 19:12:00 Brenda [facility] BLOOD CULTURE SCREEN 2021-10-25 19:12:00 Carlos Gutierrez [facility] URINALYSIS 2021-10-25 18:50:00 Brenda [facility] URINE CULTURE 2021-10-25 18:50:00 Brenda [facility] URINALYSIS 2021-10-25 18:50:00 Brenda [facility] URINE CULTURE 2021-10-25 18:50:00 Brenda [facility] HB ECG ROUTINE & RHYTHM 2021-10-25 17:57:40 Brenda [facility] HB ECG ROUTINE & RHYTHM 2021-10-25 17:57:40 Brenda [facility] XR CHEST 1 VW 2021-10-25 17:12:03 Brenda [facility] XR CHEST 1 VW 2021-10-25 17:12:03 Brenda [facility] RAPID INFLUENZA A/B 2021-10-25 17:11:00 Carlos Gutierrez [facility] RAPID INFLUENZA A/B 2021-10-25 17:11:00 Brenda [facility] TROPONIN I 2021-10-25 17:07:00 Brenda [facility] N-TERMINAL PRO-BNP 2021-10-25 17:07:00 Brenda [facility] LIPASE 2021-10-25 17:07:00 Brenda [facility] COMP. METABOLIC PANEL 2021-10-25 17:07:00 Brenda [facility] ([id number]) Medical Branch LIPASE 2021-10-25 17:07:00 Brenda [facility] TROPONIN I 2021-10-25 17:07:00 Brenda [facility] COMP. METABOLIC PANEL 2021-10-25 17:07:00 Brenda [facility] ([id number]) [facility] N-TERMINAL PRO-BNP 2021-10-25 17:07:00 Brenda [facility] CBC WITH DIFF 2021-10-25 17:06:00 Brenda [facility] LACTIC ACID WHOLE BLOOD 2021-10-25 17:06:00 Brenda [facility] COVID-19 (ID NOW RAPID 2021-10-25 17:06:00 Brenda [facility] TESTING) [facility] LAB ONLY COVID 2021-10-25 17:06:00 Brenda [facility] INTERPRETATION [facility] GLYCOSYLATED HEMOGLOBIN 2021-10-25 17:06:00 Rosendo Atwood U [facility] (A1C) Medical Branch CBC WITH DIFF 2021-10-25 17:06:00 Brenda [facility] GLYCOSYLATED HEMOGLOBIN 2021-10-25 17:06:00 Rosendo Atwood [facility] (A1C) [facility] LACTIC ACID WHOLE BLOOD 2021-10-25 17:06:00 Brenda [facility] COVID-19 (ID NOW RAPID 2021-10-25 17:06:00 Carlos Gutierrez [facility] TESTING) Medical Branch LAB ONLY COVID 2021-10-25 17:06:00 Carlos Gutierrez [facility] [place] INTERPRETATION Medical Branch CONSENT/REFUSAL FOR 2021-10-25 16:14:57 Doctor Unassadriana [facility] DIAGNOSIS AND TREATMENT [place] [facility] CONSENT/REFUSAL FOR 2021-10-25 16:14:57 Doctor Unassadriana [facility] DIAGNOSIS AND TREATMENT [facility] NOTICE OF PRIVACY 2021-10-25 16:14:41 Doctor Aaron [facility] [place] [facility] NOTICE OF PRIVACY 2021-10-25 16:14:41 Doctor Aaron [facility] HOSPITAL ADMISSION 2021-10-25 06:01:00 Doctor Walker [facility] [place] [facility] HOSPITAL ADMISSION 2021-10-25 06:01:00 Doctor Aaron [facility] [place] [facility] COVID-19 (MOLECULAR 2021-10-24 15:57:00 Michelle Ochoa [facility] TESTING [facility] Branch NUCLEIC ACID AMPLIFICATION) LAB ONLY COVID 2021-10-24 15:57:00 Michelle Ochoa [facility] INTERPRETATION Medical Branch NOTICE OF BILLING 2021-10-24 15:54:59 Doctor Aaron [facility] PRACTICES FOR MEDICARE [place] [facility] ranch PATIENTS ASSIGNMENT OF BENEFITS 2021-10-24 15:54:42 Doctor Almassadriana, [facility] [place] [facility] Plan of Care Planned Activity Planned Date Details Comments Source Future Scheduled 2023-09-30 COVID-19 VACCINE (#1) [facility] Test 15:31:00 [code = COVID-19 VACCINE (#1)] Future Scheduled 2023-09-30 65+ [facility] 15:31:00 VACCINE (1 - PCV) [code = 65+ PNEUMOCOCCAL VACCINE (1 - PCV)] Future Scheduled 2023-09-30 SHINGLES VACCINES (1 Met [facility] Test 15:31:00 of 2) [code = SHINGLES VACCINES (1 of 2)] Future Scheduled 2023-09-30 INFLUENZA VACCINE (#1) [facility] Test 15:31:00 [code = INFLUENZA VACCINE (#1)] Encounters Start End Encounter Admission Attending Care Care Encounter Source Date/Time Date/Time Type Type Clinicians Facility Department ID 2023-10-04 2023-10-04 Outpatient R [facility] [id number] Univers 15:30:00 15:30:00 ity [facility] 2023-09-20 2023-09-20 Emergency X SINGER [facility] ERT [id number] Univers 05:37:00 08:26:00 JOSE ANTONIO judson [facility] 2023-09-20 2023-09-20 Emergency [facility] 1.2.350.195 [id number] Univers 05:37:00 08:26:00 Jose Antonio SPICER 350.1.13.10 [place] [facility] [id number] [facility] [address] [place] 2023-09-20 2023-09-20 Orders Doctor DEREK 1.2.840.114 [id number] Univers 00:00:00 00:00:00 Only Unassigned, MIRIAM 350.1.13.10 [facility] 4.2.7.2.686 Vick as [phone] [facility] [address] [place] 2023-09-13 2023-09-13 Outpatient GC_[id number] PRIV PRIV [id number] [facility] 00:00:00 00:00:00 diyala_S [id number] Medic al 2023-08-02 2023-08-02 Outpatient R [facility] [id number] Univers 09:30:00 10:16:46 ity [facility] 2023-08-02 2023-08-02 Office Donato [facility] 1.2.840.114 [id number] Univers 09:30:00 10:16:46 Visit N DANNIELLE 350.1.13.10 [place] [phone] Nm dical NAL 059 [facility] 2023-07-28 2023-07-28 Orders Doctor DEREK 1.2.840.114 [id number] Univers 00:00:00 00:00:00 Only Unassigned, MIRIAM 350.1.13.10 ity of [place] [facility] 4.2.7.2.686 Vick as [id number] [facility] 009 Branch 2023-06-28 2023-06-28 Transition PERRY Chávez 1.2.840.114 [id number] Univers 00:00:00 00:00:00 of Care Lobo CHENY 350.1.13.10 [place] [id number] [facility] 403 Branch 2023-06-21 2023-06-25 Inpatient X [facility] [id number] Univers 17:18:00 18:18:00 MACARIO SHERMAN ity of [facility] 2023-06-21 2023-06-25 Hospital Ovidio Sheets [facility] 1.2.840.1 14 [id number] Univers 17:18:00 18:18:00 Encounter Tigre Murrell [facility] 350.1.13.10 ity of [place]ario Sherman [place] 4.2.7.2.[address] [place] [id number] [facility] 109 Branch ([facility]) 2023-06-25 2023-06-25 Patient Doctor DEREK 1.2.840.114 [id number] Univers 00:00:00 00:00:00 Secure Msg Unassigned, MIRIAM 350.1.13.10 ity of [place] [facility] 4.2.7.2.686 Vick as [id number] [facility] 044 Branch 2023-06-24 2023-06-24 Surgery Mark Sewell [facility] 1.2.840.114 10 [id number] Univers 10:30:00 11:30:00 N HEALTH 350.1.13.10 it [place] [id number] [facility] 840 Branch ([facility]) 2023-06-18 2023-06-18 Telephone Lionel 1.2.840.1 [id number] [id number] [place] 00:00:00 00:00:[address] [place] 3.430.2.7 Hosp sasha .3.909970 l .8 2023-06-07 2023-06-07 Telephone Antoine [facility] 1.2.508.543 [id number] [facility] 00:00:00 00:00:00 Brandin SPICER 350.1.13.10 ity [place] 4.2.7.2.[address] [facility] [id number] Nm dical NAL 059 [facility] 2023-06-04 2023-06-04 Outpatient X DYLAN [facility] [id number] [facility] 17:16:00 22:37:00 INGRID dixon [facility] 2023-06-04 2023-06-04 [facility] Lizabeth Magalis Harini [facility] 1.2.840.11 [id number] [facility] 17:16:00 22:37:00 Encounter Ingrid Richardson 350.1.13.10 ity of [place] Mur[place] 4.2.7.2.[address] [facility] [id number] [facility] byron [address] [place] 2023-05-13 2023-05-13 Office Lionel, 1.2.840.1 [id number] Methodi 15:00:00 15:30:38 Visit Yovana 20122.1.[address] [facility] 3.430.2.7 Hosp sasha .3.224208 l .8 2023-05-13 2023-05-13 Outpatient [facility] [id number] [place] 00:00:00 00:00:[address] 2023-05-13 2023-05-13 Outpatient [facility] [id number] [place] 00:00:00 00:00:00 FAUSTO [address] 2023-03-25 2023-03-25 Office Sheng, 1.2.840.1 [id number] Methodi 11:15:00 11:51:40 Visit Fausto 14206.1.[address] [facility] 3.430.2.7 Hosp sasha .3.063836 l .8 2023-03-25 2023-03-25 Outpatient SHENG, [facility] [id number] [address] [place] 00:00:00 00:00:00 FAUST[address] 2023-03-25 2023-03-25 Travel 1.2.840.1 1.2.956.997 [id number] Methodi 00:00:00 00:00:[address] 3.430.2.7 0.2.7.3.698 Ho spita .3.519490 084.8 l .8 2023-03-23 2023-03-23 Telephone Kenrick, 1.2.840.1 [id number] Methodi 00:00:00 00:00:[address] 3.430.2.7 Hospit a .3.171814 l .8 2023-03-04 2023-03-04 Office Lionel, 1.2.840.1 [id number] 6972 Methodi 13:00:00 13:35:17 Visit Yovana 62311.1.[address] [place] 3.430.2.7 Hosp sasha .3.423468 l .8 2023-03-04 2023-03-04 Outpatient [facility] [id number] [place] 00:00:00 00:00:[address] 2022-12-30 2022-12-30 Transition PERRY Chávez 1.2.840.114 [id number] Univers 00:00:00 00:00:00 of Care Lobo [place] 350.1.13.10 itjudson [facility] [place] [phone] [place] [address] Branch 2022-12-27 2022-12-29 Outpatient Beto ABDI TXTRINIDAD TAINA [id number] Univers 23:11:00 15:40:00 ANN daugherty [facility] 2022-12-27 2022-12-29 Emergency Jemima Tao S [facility] 1.2.840 .114 [id number] Univers 23:11:00 15:40:00 Ann Abdi 350.1.13.10 ity Vidya Downey 4.2.7.2.[address] [facility] [phone] [facility] byron 081 Branch 2022-12-03 2022-12-03 Office Lionel, 1.2.840.1 [id number] Methodi 13:00:00 13:47:07 Visit Yovana 52591.1.[address] [place] 3.430.2.7 Hosp sasha .3.983991 l .8 2022-12-03 2022-12-03 Outpatient [facility] [id number] [address] [place] 00:00:00 00:00:[address] 2022-12-03 2022-12-03 Travel 1.2.840.1 1.2.328.142 [id number] Methodi 00:00:00 00:00:[address] 3.430.2.7 0.2.7.3.698 Ho spita .3.599173 084.8 l .8 2022-12-03 2022-12-03 Telephone Lionel, 1.2.840.1 [id number] [id number] Methodi 00:00:00 00:00:[address] [place] 3.430.2.7 Hosp sasha .3.536329 l .8 2022-10-20 2022-10-20 Reffreddy Pozo, 1.2.840.1 [id number] Methodi 00:00:00 00:00:[address] 3.430.2.7 Hospit a .3.062882 l .8 2022-08-27 2022-08-27 Outpatient [facility] [id number] [place] 00:00:00 00:00:[address] 2022-08-11 2022-08-11 Outpatient [facility] [id number] [place] 00:00:00 00:00:00 FAUSTO [address] 2022-08-11 2022-08-11 Outpatient [facility] [id number] [address] [place] 00:00:00 00:00:00 FAUSTO 830 Method i 2022-08-04 2022-08-04 Outpatient [facility] [id number] [place] 00:00:00 00:00:[address] 2022-05-25 2022-05-25 Transition PERRY Chávez 1.2.840.114 [id number] Univers 00:00:00 00:00:00 of Care Lobo Montiel DARSHANA 350.1.13.10 [place] [id number] [facility] 403 Branch 2022-05-18 2022-05-22 Inpatient X HANDY [facility] TAINA [id number] Univers 07:27:00 15:55:00 TIGRE ity of [facility] 2022-05-18 2022-05-22 [facility] Sudeep Ovidio [facility] 1.2.840.1 14 [id number] Univers 07:27:00 15:55:00 Encounter Artemio Valadez 350.1.13.10 ity of [place] 4.2.7.2.[address] [facility] [id number] [facility] byron 080 Branch 2022-05-18 2022-05-18 Orders Doctor DEREK 1.2.840.114 [id number] Univers 00:00:00 00:00:00 Only Unassigned, MIRIAM 350.1.13.10 ity of [place] [facility] 4.2.7.2.686 Vick as [id number] [facility] 009 Branch 2022-05-14 2022-05-14 Outpatient SHENGREPLACED BY [facility] [id number] [place] 00:00:00 00:00:00 FAUSTO 223 Method i 2022-05-14 2022-05-14 Outpatient [facility] [id number] [address] [place] 00:00:00 00:00:00 106 Method i 2022-03-26 2022-03-26 Outpatient SHENGREPLACED BY [facility] [id number] [place] 00:00:00 00:00:00 FAUSTO 170 Method i 2022-02-26 2022-02-26 Outpatient SHENGREPLACED BY [facility] [id number] [place] 00:00:00 00:00:00 FAUSTO 572 Method i 2022-01-28 2022-01-28 Outpatient SHENG, [facility] [id number] [place] 00:00:00 00:00:00 FAUSTO 039 Method i 2022-01-27 2022-01-27 Orders Doctor DEREK 1.2.840.114 [id number] Univers 00:00:00 00:00:00 Only Unassigned, MIRIAM 350.1.13.10 ity of [place] [facility] 4.2.7.2.686 Vick as [id number] Medi byron 009 Branch 2022-01-22 2022-01-22 Outpatient PATRICIO, [facility] [id number] [place] 00:00:00 00:00:00 FAUSTO 113 Method i 2022-01-22 2022-01-22 Outpatient PATRICIO, [facility] [id number] [place] 00:00:00 00:00:00 FAUSTO 015 Method i 2022-01-22 2022-01-22 Outpatient PATRICIO, [facility] [id number] [place] 00:00:00 00:00:00 FAUSTO 303 Method i 2021-12-05 2021-12-05 Letter DELFIN Sheppard 1.2.840.114 [id number] Univers 00:00:00 00:00:00 (Out) Premal G MIRIAM 350.1.13.10 i ty of HOSPITAL 4.2.7.2.686 Vick as [phone] Medi byron 100 Branch 2021-11-20 2021-11-20 Patient Doctor DEREK 1.2.840.114 [id number] Univers 00:00:00 00:00:00 Secure Msg Unassigned, MIRAIM 350.1.13.10 ity of [place] [facility] 4.2.7.2.686 Vick as [phone] Medi byron 019 Branch 2021-11-20 2021-11-20 Patient Doctor DEREK 1.2.840.114 [id number] Univers 00:00:00 00:00:00 Secure Msg Unassigned, MIRIAM 350.1.13.10 ity of [place] [facility] 4.2.7.2.686 Vick as [id number] Medi byron 019 Branch 2021-11-10 2021-11-10 Transition Kyler, SHEARN 1.2.840.114 [id number] Univers 00:00:00 00:00:00 of Care Lobo CHENY 350.1.13.10 [place] 4.2.7.2.686 M[place] miranda [id number] [address] 2021-10-25 2021-11-07 Inpatient X SILVER [facility] [id number] Univers 10:51:00 18:10:00 PREMAL ity of [facility] 2021-10-25 2021-11-07 [facility] Carlos Gutierrez 1.2.840.11 4 [id number] Univers 10:51:00 18:10:00 Encounter Adenike Jourdannirmal PINEDA 350.1. 13.10 ity of [facility] 4.2.7.2.686 [place] Hipolito Mullen [id number] Medical Sheppard, [facility] G 100 Branch Jagdish Floyd Shiwan 2021-10-25 2021-10-25 Nurse Michelle Ochoa 1.2.840.4 [id number] Univers 10:00:00 10:21:58 [facility] 14119.1.1 ity of 3.104.2.7 [place] .3.262193 Medica l .[address] [place] 2021-10-25 2021-10-25 Outpatient R [facility] [id number] Univers 10:00:00 10:00:00 MICHELLE daugherty o f [facility] 2021-10-25 2021-10-25 Travel 1.2.840.1 1.2.625.586 [id number] Univers 00:00:00 00:00:00 78804.1.1 350.1.13.10 ity of 3.104.2.7 4.2.7.3.698 [place] .3.739005 084.8 Medica l .8 [place] 2021-10-24 2021-10-24 Laboratory Michelle Ochoa 1.2.840.6 [id number] Univers 10:00:00 10:01:05 Only Only, Ang Db Test 54774.1.1 ity of 3.104.2.7 [place] .3.862357 Medica l .8 [place] 2021-10-24 2021-10-24 Letter Doctor 1.2.840.4 [id number] Univers 00:00:00 00:00:00 (Out) Unassigned, 19656.1.1 ity of [place] 3.104.2.7 [place] .3.127305 Medica l .8 [place] 2021-10-24 2021-10-24 Travel 1.2.840.1 1.2.181.160 [id number] Univers 00:00:00 00:00:00 27223.1.1 350.1.13.10 ity of 3.104.2.7 4.[place].3.698 [place] .3.282512 084.8 Medica l .8 [place] 2021-10-24 2021-10-24 Orders Doctor 1.2.840.1 [id number] Univers 00:00:00 00:00:00 Only Unassigned, 44852.1.1 ity of [place] 3.104.2.7 [place] .3.071002 Medica l .8 [place] Results Test Description Test Time Test Comments Results Result Comments Source N-TERMINAL PRO-BNP 2023-09-20 12:57:03 Test Item Value Reference Range Interpretation Comme nts NT-proBNP (test code = 37800-5) 43909 pg/mL <=125 H JOSE GUADALUPE (test code = JOSE GUADALUPE) Positive: Heart Failure Likely Lab Interpretation (test code = 55513-0) Abnormal [facility] [id number] 12:42:38 Test Item Value Reference Range Interpretation Comments TROPONIN I (test code = 0.016 ng/mL <=0.034 [id number]) JOSE GUADALUPE (test code = JOSE GUADALUPE) Reference (Normal) Range (defined by the 99th percentile reference limit): <= 0.034 ng/mL Note: Cardiac troponin begins to rise 3-4 hours after the onset of ischemia. Repeat in 4-6 hours if the sample was drawn within 3-4 hours of the onset of the symptom and found normal. Diagnosis of myocardial injury is made with acute changes in cTn concentrations with at least one serial sample above the 99th percentile upper reference limit (URL), taken together with the patient's clinical presentation. Biotin has been reported to cause a negative bias, interpret results relative to patient's use of biotin. Lab Interpretation Normal (test code = 66330-4) [facility]. METABOLIC PANEL (34978)2023-09-20 12:30:35 Test Item Value Reference Range Interpretation Comments NA (test code = 137 mmol/L 135-145 [id number]) K (test code = 4.4 mmol/L 3.5-5.0 5120576911) CL (test code = 104 mmol/L 98-108 5989595947) CO2 TOTAL (test code = 18 mmol/L 23-31 L 3035949035) AGAP (test code = 15 2-16 8573873474) BUN (test code = 42 mg/dL 7-23 H 0801707035) GLUCOSE (test code = 182 mg/dL 70-110 H 6489258740) CREATININE (test code = 3.82 mg/dL 0.50-1.04 H 9437453836) TOTAL BILI (test code = 0.6 mg/dL 0.1-1.5 5098296514) CALCIUM (test code = 10.8 mg/dL 8.6-10.6 H 1051236061) T PROTEIN (test code = 7.1 g/dL 6.3-8.2 9655791921) ALBUMIN (test code = 4.0 g/dL 3.5-5.0 4172676707) ALK PHOS (test code = 93 U/L 34-122 7258324245) ALTv (test code = 31 U/L 5-35 1742-6) AST(SGOT) (test code = 19 U/L 13-40 9853991483) eGFR (test code = 11.2 mL/min/1.73m2 CKD-EPI e GFR 23016-5) (2020). Assumin g creatinine has been stable day-to-d ay for at least th ree months, the eGF R indicates Categ ory G5 (<= 14mL/min/1.73 m 2) Lab Interpretation (test Abnormal code = 90730-0) [facility] WITH [id number] 12:18:08 Test Item Value Reference Range Interpretation Comments WBC (test code = 8.68 See_Comment [Automated 6690-2) message] The sy stem which generated this result transmitted reference range : 4.30 - 11.10 10*3/?L. The reference range was not used to interpret this result as normal/abnormal . RBC (test code = 3.43 See_Comment L [Automated 789-8) message] The sy stem which generated this result transmitted reference range : 3.93 - 5.25 10*6/?L. The reference range was not used to interpret this result as normal/abnormal . HGB (test code = 10.6 g/dL 11.6-15.0 L 718-7) HCT (test code = 34.0 % 35.7-45.2 L 4544-3) MCV (test code = 99.1 fL 80.6-95.5 H 787-2) MCH (test code = 30.9 pg 25.9-32.8 785-6) MCHC (test code = 31.2 g/dL 31.6-35.1 L 786-4) RDW-SD (test code = 53.7 fL 39.0-49.9 H 39073-1) RDW-CV (test code = 15.0 % 12.0-15.5 788-0) PLT (test code = 216 See_Comment [Automated 777-3) message] The sy stem which generated this result transmitted reference range : 166 - 358 10*3/ ?L. The reference r bernadine was not used to interpret this result as normal/abnormal . MPV (test code = 10.1 fL 9.5-12.9 25561-7) NRBC/100 WBC (test 0.0 See_Comment [Automat ed code = 6050352772) message] The system which generated this result transmitted reference range : 0.0 - 10.0 /100 WBCs. The refer ence range was not u sed to interpret th is result as normal/abnormal . NRBC x10^3 (test code See_Comment [Auto mated = [id number]) message] The s ystem which generated this result transmitted reference range : 10*3/?L. The reference range was not used to interpret this result as normal/abnormal . GRAN MAT (NEUT) % 83.0 % (test code = 770-8) IMM GRAN % (test code 0.50 % = 6030218317) LYMPH % (test code = 5.9 % 736-9) MONO % (test code = 9.6 % 5905-5) EOS % (test code = 0.7 % 713-8) BASO % (test code = 0.3 % 706-2) GRAN MAT x10^3(ANC) 7.21 10*3/uL 1.88-7.09 H (test code = 4603297911) IMM GRAN x10^3 (test 0.04 10*3/uL 0.00-0.06 code = 1466913954) LYMPH x10^3 (test code 0.51 10*3/uL 1.32-3.29 L = 731-0) MONO x10^3 (test code 0.83 10*3/uL 0.33-0.92 = 742-7) EOS x10^3 (test code = 0.06 10*3/uL 0.03-0.39 711-2) BASO x10^3 (test code 0.03 10*3/uL 0.01-0.07 = 704-7) Lab Interpretation Abnormal (test code = 81412-6) [facility] GLUCOSE (AUTOMATED)2023-06-25 17:05:28 Test Item Value Reference Range Interpretation Comments POCT GLU (test code = 0859484124) 222 mg/dL 70-110 H Lab Interpretation (test code = Abnormal 34646-1) [facility] GLUCOSE (AUTOMATED)2023-06-25 17:05:28 Test Item Value Reference Range Interpretation Comments POCT GLU (test code = 3480335494) 222 mg/dL 70-110 H Lab Interpretation (test code = Abnormal 18461-0) [facility] GLUCOSE (AUTOMATED)2023-06-25 17:05:28 Test Item Value Reference Range Interpretation Comments POCT GLU (test code = 9710817585) 222 mg/dL 70-110 H Lab Interpretation (test code = Abnormal 34789-4) [facility] GLUCOSE (AUTOMATED)2023-06-25 13:16:18 Test Item Value Reference Range Interpretation Comments POCT GLU (test code = 3176177747) 129 mg/dL 70-110 H Lab Interpretation (test code = Abnormal 20548-5) [facility] GLUCOSE (AUTOMATED)2023-06-25 13:16:18 Test Item Value Reference Range Interpretation Comments POCT GLU (test code = 4096993481) 129 mg/dL 70-110 H Lab Interpretation (test code = Abnormal 82186-9) [facility] GLUCOSE (AUTOMATED)2023-06-25 13:16:18 Test Item Value Reference Range Interpretation Comments POCT GLU (test code = 7011019463) 129 mg/dL 70-110 H Lab Interpretation (test code = Abnormal 72154-0) [facility] ACT LOW [id number] 11:38:18 Test Item Value Reference Range Interpretation Comments ACTLR (test code = 290 See_Comment H [Automat ed message] 2792069188) The system [employer] generated this result transmitted ref erence range: 89 - 169 Seconds. The reference range was not used to int erpret this result as normal/abnormal . Lab Interpretation (test Abnormal code = 73168-9) [facility] ACT LOW [id number] 11:38:18 Test Item Value Reference Range Interpretation Comments ACTLR (test code = 290 See_Comment H [Automat ed message] 4848734886) The system [employer] generated this result transmitted ref erence range: 89 - 169 Seconds. The reference range was not used to int erpret this result as normal/abnormal . Lab Interpretation (test Abnormal code = 90298-3) [facility] ACT LOW [id number] 11:38:18 Test Item Value Reference Range Interpretation Comments ACTLR (test code = 290 See_Comment H [Automat ed message] 0981543673) The system [employer] generated this result transmitted ref erence range: 89 - 169 Seconds. The reference range was not used to int erpret this result as normal/abnormal . Lab Interpretation (test Abnormal code = 90487-4) [facility] Test Item Value Reference Range Interpretation Comments MAGNESIUM (test code = 0591206650) 2.0 mg/dL 1.7-2.4 Lab Interpretation (test code = Normal 12879-0) [facility] Test Item Value Reference Range Interpretation Comments PHOSPHORUS (test code = 8432817518) 5.0 mg/dL 2.5-5.0 Lab Interpretation (test code = Normal 64296-6) [facility] (NA, K, CL, CO2, GLUCOSE, BUN, CREATININE, CA)2023-06-25 09:52:45 Test Item Value Reference Range Interpretation Comments NA (test code = 137 mmol/L 135-145 4099316938) K (test code = 4.4 mmol/L 3.5-5.0 0413513657) CL (test code = 105 mmol/L 98-108 9229298598) CO2 TOTAL (test code = 20 mmol/L 23-31 L 5405265799) AGAP (test code = 12 2-16 5827128725) BUN (test code = 57 mg/dL 7-23 H 1129971035) GLUCOSE (test code = 105 mg/dL 70-110 8550707065) CREATININE (test code = 3.66 mg/dL 0.50-1.04 H 6426101175) CALCIUM (test code = 7.9 mg/dL 8.6-10.6 L 2161320050) eGFR (test code = 11.8 mL/min/1.73m2 9148019397) JOSE GUADALUPE (test code = JOSE GUADALUPE) Association of Glomerular Filtration Rate (GFR) and Staging of Kidney Disease* + --+ --+ ------+| GFR (mL/min/1.73 m2) ?| With Kidney Damage ?| ?Without Kidney Damage+ --------+ --------+ +| ?>90 ?| ?Stage one ?| ? Normal ?+ ---+ ---+ -------+| ?60-89 ?| ?Stage two ?| ? Decreased GFR ? + --+ --+ ------+| ?30-59 ?| ?Stage three ?| ? Stage three ? + --+ --+ ------+| ?15-29 ?| ?Stage four ? | ? Stage four ?+ ---+ ---+ -------+| ?<15 (or dialysis) ? ?| ?Stage five ? | ? Stage five ?+ ---+ ---+ -------+ *Each stage assumes the associated GFR level has been in effect for at least three months. ?Stages 1 to 5, with or without kidney disease, indicate chronic kidney disease. Notes: Determination of stages one and two (with eGFR >59mL/min/1.73 m2) requires estimation of kidney damage for at least three months as defined by structural or functional abnormalities of the kidney, manifested by either:Pathological abnormalities or Markers of kidney damage (including abnormalities in the composition of the blood or urine or abnormalities in imaging tests). Lab Interpretation Abnormal (test code = 97147-1) [facility] METABOLIC PANEL (NA, K, CL, CO2, GLUCOSE, BUN, CREATININE, CA)2023-06-25 09:52:45 Test Item Value Reference Range Interpretation Comments NA (test code = 137 mmol/L 135-145 2390518776) K (test code = 4.4 mmol/L 3.5-5.0 1173710667) CL (test code = 105 mmol/L 98-108 8609468154) CO2 TOTAL (test code = 20 mmol/L 23-31 L 1299314805) AGAP (test code = 12 2-16 2966835191) BUN (test code = 57 mg/dL 7-23 H 7022203558) GLUCOSE (test code = 105 mg/dL 70-110 7877488264) CREATININE (test code = 3.66 mg/dL 0.50-1.04 H 4859448440) CALCIUM (test code = 7.9 mg/dL 8.6-10.6 L 5164076660) eGFR (test code = 11.8 mL/min/1.73m2 8252604595) JOSE GUADALUPE (test code = JOSE GUADALUPE) Association of Glomerular Filtration Rate (GFR) and Staging of Kidney Disease* + --+ --+ ------+| GFR (mL/min/1.73 m2) ?| With Kidney Damage ?| ?Without Kidney Damage+ --------+ --------+ +| ?>90 ?| ?Stage one ?| ? Normal ?+ ---+ ---+ -------+| ?60-89 ?| ?Stage two ?| ? Decreased GFR ? + --+ --+ ------+| ?30-59 ?| ?Stage three ?| ? Stage three ? + --+ --+ ------+| ?15-29 ?| ?Stage four ? | ? Stage four ?+ ---+ ---+ -------+| ?<15 (or dialysis) ? ?| ?Stage five ? | ? Stage five ?+ ---+ ---+ -------+ *Each stage assumes the associated GFR level has been in effect for at least three months. ?Stages 1 to 5, with or without kidney disease, indicate chronic kidney disease. Notes: Determination of stages one and two (with eGFR >59mL/min/1.73 m2) requires estimation of kidney damage for at least three months as defined by structural or functional abnormalities of the kidney, manifested by either:Pathological abnormalities or Markers of kidney damage (including abnormalities in the composition of the blood or urine or abnormalities in imaging tests). Lab Interpretation Abnormal (test code = 47654-6) [facility] 09:52:45 Test Item Value Reference Range Interpretation Comments MAGNESIUM (test code = 8060196269) 2.0 mg/dL 1.7-2.4 Lab Interpretation (test code = Normal 13659-0) [facility] 09:52:45 Test Item Value Reference Range Interpretation Comments PHOSPHORUS (test code = 3430930303) 5.0 mg/dL 2.5-5.0 Lab Interpretation (test code = Normal 42932-0) [facility] (NA, K, CL, CO2, GLUCOSE, BUN, CREATININE, CA)2023-06-25 09:52:45 Test Item Value Reference Range Interpretation Comments NA (test code = 137 mmol/L 135-145 0461944515) K (test code = 4.4 mmol/L 3.5-5.0 6952884147) CL (test code = 105 mmol/L 98-108 3160401096) CO2 TOTAL (test code = 20 mmol/L 23-31 L 1049712336) AGAP (test code = 12 2-16 5416343008) BUN (test code = 57 mg/dL 7-23 H 4373108530) GLUCOSE (test code = 105 mg/dL 70-110 4678980108) CREATININE (test code = 3.66 mg/dL 0.50-1.04 H 0218352041) CALCIUM (test code = 7.9 mg/dL 8.6-10.6 L 9044774273) eGFR (test code = 11.8 mL/min/1.73m2 4661739551) JOSE GUADALUPE (test code = JOSE GUADALUPE) Association of Glomerular Filtration Rate (GFR) and Staging of Kidney Disease* + --+ --+ ------+| GFR (mL/min/1.73 m2) ?| With Kidney Damage ?| ?Without Kidney Damage+ --------+ --------+ +| ?>90 ?| ?Stage one ?| ? Normal ?+ ---+ ---+ -------+| ?60-89 ?| ?Stage two ?| ? Decreased GFR ? + --+ --+ ------+| ?30-59 ?| ?Stage three ?| ? Stage three ? + --+ --+ ------+| ?15-29 ?| ?Stage four ? | ? Stage four ?+ ---+ ---+ -------+| ?<15 (or dialysis) ? ?| ?Stage five ? | ? Stage five ?+ ---+ ---+ -------+ *Each stage assumes the associated GFR level has been in effect for at least three months. ?Stages 1 to 5, with or without kidney disease, indicate chronic kidney disease. Notes: Determination of stages one and two (with eGFR >59mL/min/1.73 m2) requires estimation of kidney damage for at least three months as defined by structural or functional abnormalities of the kidney, manifested by either:Pathological abnormalities or Markers of kidney damage (including abnormalities in the composition of the blood or urine or abnormalities in imaging tests). Lab Interpretation Abnormal (test code = 88067-5) [facility] 09:52:45 Test Item Value Reference Range Interpretation Comments MAGNESIUM (test code = 0718880878) 2.0 mg/dL 1.7-2.4 Lab Interpretation (test code = Normal 14979-5) [facility] 09:52:45 Test Item Value Reference Range Interpretation Comments PHOSPHORUS (test code = 4102632609) 5.0 mg/dL 2.5-5.0 Lab Interpretation (test code = Normal 45015-5) [facility] WITH [id number] 09:47:26 Test Item Value Reference Range Interpretation Comments WBC (test code = 7.56 See_Comment [Automated 6690-2) message] The sy stem which generated this result transmitted reference range : 4.30 - 11.10 10*3/?L. The reference range was not used to interpret this result as normal/abnormal . RBC (test code = 2.95 See_Comment L [Automated 789-8) message] The sy stem which generated this result transmitted reference range : 3.93 - 5.25 10*6/?L. The reference range was not used to interpret this result as normal/abnormal . HGB (test code = 9.0 g/dL 11.6-15.0 L 718-7) HCT (test code = 28.2 % 35.7-45.2 L 4544-3) MCV (test code = 95.6 fL 80.6-95.5 H 787-2) MCH (test code = 30.5 pg 25.9-32.8 785-6) MCHC (test code = 31.9 g/dL 31.6-35.1 786-4) RDW-SD (test code = 50.0 fL 39.0-49.9 H 21653-4) RDW-CV (test code = 14.5 % 12.0-15.5 788-0) PLT (test code = 149 See_Comment L [Automated 777-3) message] The sy stem which generated this result transmitted reference range : 166 - 358 10*3/ ?L. The reference r bernadine was not used to interpret this result as normal/abnormal . MPV (test code = 10.1 fL 9.5-12.9 27250-9) NRBC/100 WBC (test 0.0 See_Comment [Automat ed code = 0938785123) message] The system which generated this result transmitted reference range : 0.0 - 10.0 /100 WBCs. The refer ence range was not u sed to interpret th is result as normal/abnormal . NRBC x10^3 (test code See_Comment [Auto mated = 8396633444) message] The s ystem which generated this result transmitted reference range : 10*3/?L. The reference range was not used to interpret this result as normal/abnormal . GRAN MAT (NEUT) % 69.9 % (test code = 770-8) IMM GRAN % (test code 0.50 % = 9284186418) LYMPH % (test code = 14.3 % 736-9) MONO % (test code = 10.4 % 5905-5) EOS % (test code = 4.5 % 713-8) BASO % (test code = 0.4 % 706-2) GRAN MAT x10^3(ANC) 5.28 10*3/uL 1.88-7.09 (test code = 5700337593) IMM GRAN x10^3 (test 0.04 10*3/uL 0.00-0.06 code = 6638009017) LYMPH x10^3 (test code 1.08 10*3/uL 1.32-3.29 L = 731-0) MONO x10^3 (test code 0.79 10*3/uL 0.33-0.92 = 742-7) EOS x10^3 (test code = 0.34 10*3/uL 0.03-0.39 711-2) BASO x10^3 (test code 0.03 10*3/uL 0.01-0.07 = 704-7) Lab Interpretation Abnormal (test code = 78436-9) [facility] WITH [id number] 09:47:26 Test Item Value Reference Range Interpretation Comments WBC (test code = 7.56 See_Comment [Automated 3990-2) message] The sy stem which generated this result transmitted reference range : 4.30 - 11.10 10*3/?L. The reference range was not used to interpret this result as normal/abnormal . RBC (test code = 2.95 See_Comment L [Automated 029-8) message] The sy stem which generated this result transmitted reference range : 3.93 - 5.25 10*6/?L. The reference range was not used to interpret this result as normal/abnormal . HGB (test code = 9.0 g/dL 11.6-15.0 L 718-7) HCT (test code = 28.2 % 35.7-45.2 L 4544-3) MCV (test code = 95.6 fL 80.6-95.5 H 787-2) MCH (test code = 30.5 pg 25.9-32.8 785-6) MCHC (test code = 31.9 g/dL 31.6-35.1 786-4) RDW-SD (test code = 50.0 fL 39.0-49.9 H 56180-1) RDW-CV (test code = 14.5 % 12.0-15.5 788-0) PLT (test code = 149 See_Comment L [Automated 777-3) message] The sy stem which generated this result transmitted reference range : 166 - 358 10*3/ ?L. The reference r bernadine was not used to interpret this result as normal/abnormal . MPV (test code = 10.1 fL 9.5-12.9 62581-7) NRBC/100 WBC (test 0.0 See_Comment [Automat ed code = 7281358789) message] The system which generated this result transmitted reference range : 0.0 - 10.0 /100 WBCs. The refer ence range was not u sed to interpret th is result as normal/abnormal . NRBC x10^3 (test code See_Comment [Auto mated = 9943869037) message] The s ystem which generated this result transmitted reference range : 10*3/?L. The reference range was not used to interpret this result as normal/abnormal . GRAN MAT (NEUT) % 69.9 % (test code = 770-8) IMM GRAN % (test code 0.50 % = 6395108083) LYMPH % (test code = 14.3 % 736-9) MONO % (test code = 10.4 % 5905-5) EOS % (test code = 4.5 % 713-8) BASO % (test code = 0.4 % 706-2) GRAN MAT x10^3(ANC) 5.28 10*3/uL 1.88-7.09 (test code = 4734058021) IMM GRAN x10^3 (test 0.04 10*3/uL 0.00-0.06 code = 3448901612) LYMPH x10^3 (test code 1.08 10*3/uL 1.32-3.29 L = 731-0) MONO x10^3 (test code 0.79 10*3/uL 0.33-0.92 = 742-7) EOS x10^3 (test code = 0.34 10*3/uL 0.03-0.39 711-2) BASO x10^3 (test code 0.03 10*3/uL 0.01-0.07 = 704-7) Lab Interpretation Abnormal (test code = 95222-0) [facility] WITH [id number] 09:47:26 Test Item Value Reference Range Interpretation Comments WBC (test code = 7.56 See_Comment [Automated 6690-2) message] The sy stem which generated this result transmitted reference range : 4.30 - 11.10 10*3/?L. The reference range was not used to interpret this result as normal/abnormal . RBC (test code = 2.95 See_Comment L [Automated 789-8) message] The sy stem which generated this result transmitted reference range : 3.93 - 5.25 10*6/?L. The reference range was not used to interpret this result as normal/abnormal . HGB (test code = 9.0 g/dL 11.6-15.0 L 718-7) HCT (test code = 28.2 % 35.7-45.2 L 4544-3) MCV (test code = 95.6 fL 80.6-95.5 H 787-2) MCH (test code = 30.5 pg 25.9-32.8 785-6) MCHC (test code = 31.9 g/dL 31.6-35.1 786-4) RDW-SD (test code = 50.0 fL 39.0-49.9 H 45120-9) RDW-CV (test code = 14.5 % 12.0-15.5 788-0) PLT (test code = 149 See_Comment L [Automated 777-3) message] The sy stem which generated this result transmitted reference range : 166 - 358 10*3/ ?L. The reference r bernadine was not used to interpret this result as normal/abnormal . MPV (test code = 10.1 fL 9.5-12.9 51253-7) NRBC/100 WBC (test 0.0 See_Comment [Automat ed code = 1739405368) message] The system which generated this result transmitted reference range : 0.0 - 10.0 /100 WBCs. The refer ence range was not u sed to interpret th is result as normal/abnormal . NRBC x10^3 (test code See_Comment [Auto mated = 0177851303) message] The s ystem which generated this result transmitted reference range : 10*3/?L. The reference range was not used to interpret this result as normal/abnormal . GRAN MAT (NEUT) % 69.9 % (test code = 770-8) IMM GRAN % (test code 0.50 % = 5023079622) LYMPH % (test code = 14.3 % 736-9) MONO % (test code = 10.4 % 5905-5) EOS % (test code = 4.5 % 713-8) BASO % (test code = 0.4 % 706-2) GRAN MAT x10^3(ANC) 5.28 10*3/uL 1.88-7.09 (test code = 4230544060) IMM GRAN x10^3 (test 0.04 10*3/uL 0.00-0.06 code = 2056340957) LYMPH x10^3 (test code 1.08 10*3/uL 1.32-3.29 L = 731-0) MONO x10^3 (test code 0.79 10*3/uL 0.33-0.92 = 742-7) EOS x10^3 (test code = 0.34 10*3/uL 0.03-0.39 711-2) BASO x10^3 (test code 0.03 10*3/uL 0.01-0.07 = 704-7) Lab Interpretation Abnormal (test code = 36830-3) [facility] GLUCOSE (AUTOMATED)2023-06-25 01:36:33 Test Item Value Reference Range Interpretation Comments POCT GLU (test code = 4638917646) 136 mg/dL 70-110 H Lab Interpretation (test code = Abnormal 23840-3) [facility] GLUCOSE (AUTOMATED)2023-06-25 01:36:33 Test Item Value Reference Range Interpretation Comments POCT GLU (test code = 3919657572) 136 mg/dL 70-110 H Lab Interpretation (test code = Abnormal 79104-2) [facility] GLUCOSE (AUTOMATED)2023-06-25 01:36:33 Test Item Value Reference Range Interpretation Comments POCT GLU (test code = 4831454803) 136 mg/dL 70-110 H Lab Interpretation (test code = Abnormal 96379-9) [facility] GLUCOSE (AUTOMATED)2023-06-24 22:06:40 Test Item Value Reference Range Interpretation Comments POCT GLU (test code = 8040952916) 192 mg/dL 70-110 H Lab Interpretation (test code = Abnormal 06946-8) [facility] GLUCOSE (AUTOMATED)2023-06-24 22:06:40 Test Item Value Reference Range Interpretation Comments POCT GLU (test code = 5564330736) 192 mg/dL 70-110 H Lab Interpretation (test code = Abnormal 96193-1) [facility] GLUCOSE (AUTOMATED)2023-06-24 22:06:40 Test Item Value Reference Range Interpretation Comments POCT GLU (test code = 2040079543) 192 mg/dL 70-110 H Lab Interpretation (test code = Abnormal 54525-0) [facility] GLUCOSE (AUTOMATED)2023-06-24 12:48:09 Test Item Value Reference Range Interpretation Comments POCT GLU (test code = 0960219382) 122 mg/dL 70-110 H Lab Interpretation (test code = Abnormal 08744-4) [facility] GLUCOSE (AUTOMATED)2023-06-24 12:48:09 Test Item Value Reference Range Interpretation Comments POCT GLU (test code = 6608770222) 122 mg/dL 70-110 H Lab Interpretation (test code = Abnormal 25953-1) [facility] GLUCOSE (AUTOMATED)2023-06-24 12:48:09 Test Item Value Reference Range Interpretation Comments POCT GLU (test code = 8678075980) 122 mg/dL 70-110 H Lab Interpretation (test code = Abnormal 98225-6) [facility] GLUCOSE (AUTOMATED)2023-06-24 02:14:56 Test Item Value Reference Range Interpretation Comments POCT GLU (test code = 4299274975) 139 mg/dL 70-110 H Lab Interpretation (test code = Abnormal 77141-7) [facility] GLUCOSE (AUTOMATED)2023-06-24 02:14:56 Test Item Value Reference Range Interpretation Comments POCT GLU (test code = 4988895018) 139 mg/dL 70-110 H Lab Interpretation (test code = Abnormal 62722-5) [facility] GLUCOSE (AUTOMATED)2023-06-24 02:14:56 Test Item Value Reference Range Interpretation Comments POCT GLU (test code = 8205455878) 139 mg/dL 70-110 H Lab Interpretation (test code = Abnormal 38880-1) [facility] 22:31:21 Test Item Value Reference Range Interpretation Comments HBsAB (test code = Negative 9894177838) HBsAb 0.00 mIU/mL Semi-Quantitative (test code = 3848725161) JOSE GUADALUPE (test code = Interpretation: JOSE GUADALUPE) ?Hepatitis B Surface Antibody ? Negative - Patient is considered to be not immune to infection with HBV. ? ? Positive - Anti-HBs detected at greater than or equal to 12 mIU/mL. ?Patient is considered to be immune to infection with HBV. ? [facility] 22:31:21 Test Item Value Reference Range Interpretation Comments HBsAB (test code = Negative 1339774005) HBsAb 0.00 mIU/mL Semi-Quantitative (test code = 9284766203) JOSE GUADALUPE (test code = Interpretation: JOSE GUADALUPE) ?Hepatitis B Surface Antibody ? Negative - Patient is considered to be not immune to infection with HBV. ? ? Positive - Anti-HBs detected at greater than or equal to 12 mIU/mL. ?Patient is considered to be immune to infection with HBV. ? [facility] 22:31:21 Test Item Value Reference Range Interpretation Comments HBsAB (test code = Negative 3513514152) HBsAb 0.00 mIU/mL Semi-Quantitative (test code = 0712503673) JOSE GUADALUPE (test code = Interpretation: JOSE GUADALUPE) ?Hepatitis B Surface Antibody ? Negative - Patient is considered to be not immune to infection with HBV. ? ? Positive - Anti-HBs detected at greater than or equal to 12 mIU/mL. ?Patient is considered to be immune to infection with HBV. ? [facility] B Surface Antigen (HBsAg)2023-06-23 22:13:57 Test Item Value Reference Range Interpretation Comments HBsAg Semi-Quantitative (test code = 0.10 Negative 5195-3) [facility] B Surface Antigen (HBsAg)2023-06-23 22:13:57 Test Item Value Reference Range Interpretation Comments HBsAg Semi-Quantitative (test code = 0.10 Negative 5195-3) [facility] B Surface Antigen (HBsAg)2023-06-23 22:13:57 Test Item Value Reference Range Interpretation Comments HBsAg Semi-Quantitative (test code = 0.10 Negative 5195-3) [facility] GLUCOSE (AUTOMATED)2023-06-23 21:15:54 Test Item Value Reference Range Interpretation Comments POCT GLU (test code = 4061859331) 201 mg/dL 70-110 H Lab Interpretation (test code = Abnormal 68381-2) [facility] GLUCOSE (AUTOMATED)2023-06-23 21:15:54 Test Item Value Reference Range Interpretation Comments POCT GLU (test code = 5871581018) 201 mg/dL 70-110 H Lab Interpretation (test code = Abnormal 06252-0) [facility] GLUCOSE (AUTOMATED)2023-06-23 21:15:54 Test Item Value Reference Range Interpretation Comments POCT GLU (test code = 4159118812) 201 mg/dL 70-110 H Lab Interpretation (test code = Abnormal 59667-3) [facility] GLUCOSE (AUTOMATED)2023-06-23 17:01:19 Test Item Value Reference Range Interpretation Comments POCT GLU (test code = 0624519541) 86 mg/dL 70-110 Lab Interpretation (test code = Normal 97343-1) [facility] GLUCOSE (AUTOMATED)2023-06-23 17:01:19 Test Item Value Reference Range Interpretation Comments POCT GLU (test code = 3164867783) 86 mg/dL 70-110 Lab Interpretation (test code = Normal 37344-0) [facility] GLUCOSE (AUTOMATED)2023-06-23 17:01:19 Test Item Value Reference Range Interpretation Comments POCT GLU (test code = 7485404584) 86 mg/dL 70-110 Lab Interpretation (test code = Normal 73470-2) [facility] GLUCOSE (AUTOMATED)2023-06-23 12:26:57 Test Item Value Reference Range Interpretation Comments POCT GLU (test code = 1386366266) 117 mg/dL 70-110 H Lab Interpretation (test code = Abnormal 30796-0) [facility] GLUCOSE (AUTOMATED)2023-06-23 12:26:57 Test Item Value Reference Range Interpretation Comments POCT GLU (test code = 6075381143) 117 mg/dL 70-110 H Lab Interpretation (test code = Abnormal 96529-2) [facility] GLUCOSE (AUTOMATED)2023-06-23 12:26:57 Test Item Value Reference Range Interpretation Comments POCT GLU (test code = 4378291831) 117 mg/dL 70-110 H Lab Interpretation (test code = Abnormal 89856-4) [facility] GLUCOSE (AUTOMATED)2023-06-23 01:24:35 Test Item Value Reference Range Interpretation Comments POCT GLU (test code = 0495509528) 144 mg/dL 70-110 H Lab Interpretation (test code = Abnormal 63145-3) [facility] GLUCOSE (AUTOMATED)2023-06-23 01:24:35 Test Item Value Reference Range Interpretation Comments POCT GLU (test code = 3229904925) 144 mg/dL 70-110 H Lab Interpretation (test code = Abnormal 00367-3) [facility] GLUCOSE (AUTOMATED)2023-06-23 01:24:35 Test Item Value Reference Range Interpretation Comments POCT GLU (test code = 9908445351) 144 mg/dL 70-110 H Lab Interpretation (test code = Abnormal 73541-5) [facility] GLUCOSE (AUTOMATED)2023-06-22 21:53:00 Test Item Value Reference Range Interpretation Comments POCT GLU (test code = 5795190511) 151 mg/dL 70-110 H Lab Interpretation (test code = Abnormal 53726-6) [facility] GLUCOSE (AUTOMATED)2023-06-22 21:53:00 Test Item Value Reference Range Interpretation Comments POCT GLU (test code = 1693682735) 151 mg/dL 70-110 H Lab Interpretation (test code = Abnormal 00355-3) [facility] 21:53:00 Test Item Value Reference Range Interpretation Comments POCT GLU (test code = 6055201543) 151 mg/dL 70-110 H Lab Interpretation (test code = Abnormal 94975-5) [facility] [id number] 20:12:43 Test Item Value Reference Range Interpretation Comments TSH (test code = 1.43 See_Comment [Automated message] [id number]) The system [employer] generated this result transmitted ref erence range: 0.45 - 4 .70 mIU/L. The refe rence range was not u sed to interpret this result as normal/abnor mal. Lab Interpretation (test Normal code = 52168-2) [facility] [id number] 20:12:43 Test Item Value Reference Range Interpretation Comments TSH (test code = 1.43 See_Comment [Automated message] 1058749437) The system [employer] generated this result transmitted ref erence range: 0.45 - 4 .70 mIU/L. The refe rence range was not u sed to interpret this result as normal/abnor mal. Lab Interpretation (test Normal code = 71378-4) [facility] [id number] 20:12:43 Test Item Value Reference Range Interpretation Comments TSH (test code = 1.43 See_Comment [Automated message] [id number]) The system [employer] generated this result transmitted ref erence range: 0.45 - 4 .70 mIU/L. The refe rence range was not u sed to interpret this result as normal/abnor mal. Lab Interpretation (test Normal code = 15909-0) [facility] [id number] 18:02:59 Test Item Value Reference Range Interpretation Comments TROPONIN I (test code = 3.150 ng/mL <=0.034 H 3955233135) JOSE GUADALUPE (test code = JOSE GUADALUPE) Reference (Normal) Range (defined by the 99th percentile reference limit): <= 0.034 ng/mL Note: Cardiac troponin begins to rise 3-4 hours after the onset of ischemia. Repeat in 4-6 hours if the sample was drawn within 3-4 hours of the onset of the symptom and found normal. Diagnosis of myocardial injury is made with acute changes in cTn concentrations with at least one serial sample above the 99th percentile upper reference limit (URL), taken together with the patient's clinical presentation. Biotin has been reported to cause a negative bias, interpret results relative to patient's use of biotin. Lab Interpretation Abnormal (test code = 30374-4) [facility] [id number] 18:02:59 Test Item Value Reference Range Interpretation Comments TROPONIN I (test code = 3.150 ng/mL <=0.034 H 2930203514) JOSE GUADALUPE (test code = JOSE GUADALUPE) Reference (Normal) Range (defined by the 99th percentile reference limit): <= 0.034 ng/mL Note: Cardiac troponin begins to rise 3-4 hours after the onset of ischemia. Repeat in 4-6 hours if the sample was drawn within 3-4 hours of the onset of the symptom and found normal. Diagnosis of myocardial injury is made with acute changes in cTn concentrations with at least one serial sample above the 99th percentile upper reference limit (URL), taken together with the patient's clinical presentation. Biotin has been reported to cause a negative bias, interpret results relative to patient's use of biotin. Lab Interpretation Abnormal (test code = 19602-6) [facility] [id number] 18:02:59 Test Item Value Reference Range Interpretation Comments TROPONIN I (test code = 3.150 ng/mL <=0.034 H 9852170584) JOSE GUADALUPE (test code = JOSE GUADALUPE) Reference (Normal) Range (defined by the 99th percentile reference limit): <= 0.034 ng/mL Note: Cardiac troponin begins to rise 3-4 hours after the onset of ischemia. Repeat in 4-6 hours if the sample was drawn within 3-4 hours of the onset of the symptom and found normal. Diagnosis of myocardial injury is made with acute changes in cTn concentrations with at least one serial sample above the 99th percentile upper reference limit (URL), taken together with the patient's clinical presentation. Biotin has been reported to cause a negative bias, interpret results relative to patient's use of biotin. Lab Interpretation Abnormal (test code = 01289-0) [facility]2023-06-22 17:05:14 Test Item Value Reference Range Interpretation Comments POCT GLU (test code = 0190821979) 177 mg/dL 70-110 H Lab Interpretation (test code = Abnormal 49836-5) [facility] GLUCOSE (AUTOMATED)2023-06-22 17:05:14 Test Item Value Reference Range Interpretation Comments POCT GLU (test code = 5821571823) 177 mg/dL 70-110 H Lab Interpretation (test code = Abnormal 39824-9) [facility] GLUCOSE (AUTOMATED)2023-06-22 17:05:14 Test Item Value Reference Range Interpretation Comments POCT GLU (test code = 6619383163) 177 mg/dL 70-110 H Lab Interpretation (test code = Abnormal 25726-2) [facility] GLUCOSE (AUTOMATED)2023-06-22 13:10:57 Test Item Value Reference Range Interpretation Comments POCT GLU (test code = 1790729110) 107 mg/dL 70-110 Lab Interpretation (test code = Normal 08417-4) [facility] GLUCOSE (AUTOMATED)2023-06-22 13:10:57 Test Item Value Reference Range Interpretation Comments POCT GLU (test code = 7123610913) 107 mg/dL 70-110 Lab Interpretation (test code = Normal 50917-7) [facility] GLUCOSE (AUTOMATED)2023-06-22 13:10:57 Test Item Value Reference Range Interpretation Comments POCT GLU (test code = 9857978409) 107 mg/dL 70-110 Lab Interpretation (test code = Normal 31842-5) [facility] [id number] 23:27:03 Test Item Value Reference Range Interpretation Comments TROPONIN I (test code = 0.020 ng/mL <=0.034 7956790007) JOSE GUADALUPE (test code = JOSE GUADALUPE) Reference (Normal) Range (defined by the 99th percentile reference limit): <= 0.034 ng/mL Note: Cardiac troponin begins to rise 3-4 hours after the onset of ischemia. Repeat in 4-6 hours if the sample was drawn within 3-4 hours of the onset of the symptom and found normal. Diagnosis of myocardial injury is made with acute changes in cTn concentrations with at least one serial sample above the 99th percentile upper reference limit (URL), taken together with the patient's clinical presentation. Biotin has been reported to cause a negative bias, interpret results relative to patient's use of biotin. Lab Interpretation Normal (test code = 04643-5) [facility] [id number] 23:27:03 Test Item Value Reference Range Interpretation Comments TROPONIN I (test code = 0.020 ng/mL <=0.034 5134614337) JOSE GUADALUPE (test code = JOSE GUADALUPE) Reference (Normal) Range (defined by the 99th percentile reference limit): <= 0.034 ng/mL Note: Cardiac troponin begins to rise 3-4 hours after the onset of ischemia. Repeat in 4-6 hours if the sample was drawn within 3-4 hours of the onset of the symptom and found normal. Diagnosis of myocardial injury is made with acute changes in cTn concentrations with at least one serial sample above the 99th percentile upper reference limit (URL), taken together with the patient's clinical presentation. Biotin has been reported to cause a negative bias, interpret results relative to patient's use of biotin. Lab Interpretation Normal (test code = 93481-4) [facility] [id number] 23:27:03 Test Item Value Reference Range Interpretation Comments TROPONIN I (test code = 0.020 ng/mL <=0.034 4243957538) JOSE GUADALUPE (test code = JOSE GUADALUPE) Reference (Normal) Range (defined by the 99th percentile reference limit): <= 0.034 ng/mL Note: Cardiac troponin begins to rise 3-4 hours after the onset of ischemia. Repeat in 4-6 hours if the sample was drawn within 3-4 hours of the onset of the symptom and found normal. Diagnosis of myocardial injury is made with acute changes in cTn concentrations with at least one serial sample above the 99th percentile upper reference limit (URL), taken together with the patient's clinical presentation. Biotin has been reported to cause a negative bias, interpret results relative to patient's use of biotin. Lab Interpretation Normal (test code = 86561-0) [facility] [id number] 23:16:38 Test Item Value Reference Range Interpretation Comments APTT Patient (test 28 See_Comment [Automat ed code = 3173-2) message] The system which generated this result transmitted reference range : 23 - 38 Seconds . The reference range was not used to interpr et this result as normal/abnormal . JOSE GUADALPUE (test code = JOSE GUADALUPE) The [facility] patient population mean normal value for aPTT is 30 seconds. Lab Interpretation Normal (test code = 04435-8) [facility] [id number] 23:16:38 Test Item Value Reference Range Interpretation Comments APTT Patient (test 28 See_Comment [Automat ed code = 3173-2) message] The system which generated this result transmitted reference range : 23 - 38 Seconds . The reference range was not used to interpr et this result as normal/abnormal . JOSE GUADALUPE (test code = JOSE GUADALUPE) The [facility] patient population mean normal value for aPTT is 30 seconds. Lab Interpretation Normal (test code = 23776-3) [facility] [id number] 23:16:38 Test Item Value Reference Range Interpretation Comments APTT Patient (test 28 See_Comment [Automat ed code = 3173-2) message] The system which generated this result transmitted reference range : 23 - 38 Seconds . The reference range was not used to interpr et this result as normal/abnormal . JOSE GUADALUPE (test code = JOSE GUADALUPE) The [facility] patient population mean normal value for aPTT is 30 seconds. Lab Interpretation Normal (test code = 16326-2) [facility]. METABOLIC PANEL ([id number])2023-06-21 23:14:57 Test Item Value Reference Range Interpretation Comments NA (test code = 136 mmol/L 135-145 6941501328) K (test code = 4.0 mmol/L 3.5-5.0 4435044879) CL (test code = 98 mmol/L 98-108 3334342892) CO2 TOTAL (test code = 26 mmol/L 23-31 6189795718) AGAP (test code = 12 2-16 4255962787) BUN (test code = 27 mg/dL 7-23 H 1152651921) GLUCOSE (test code = 169 mg/dL 70-110 H 7405683786) CREATININE (test code = 2.05 mg/dL 0.50-1.04 H 6159780031) TOTAL BILI (test code = 0.5 mg/dL 0.1-1.0 0512341924) CALCIUM (test code = 9.1 mg/dL 8.6-10.6 2570535877) T PROTEIN (test code = 6.8 g/dL 6.3-8.2 6198253846) ALBUMIN (test code = 4.0 g/dL 3.5-5.0 3250129411) ALK PHOS (test code = 82 U/L 34-122 2853164508) ALTv (test code = 28 U/L 5-35 1742-6) AST(SGOT) (test code = 26 U/L 13-40 3906811933) eGFR (test code = 23.1 mL/min/1.73m2 9913752018) JOSE GUADALUPE (test code = JOSE GUADALUPE) Association of Glomerular Filtration Rate (GFR) and Staging of Kidney Disease* + --+ --+ ------+| GFR (mL/min/1.73 m2) ?| With Kidney Damage ?| ?Without Kidney Damage+ --------+ --------+ +| ?>90 ?| ?Stage one ?| ? Normal ?+ ---+ ---+ -------+| ?60-89 ?| ?Stage two ?| ? Decreased GFR ? + --+ --+ ------+| ?30-59 ?| ?Stage three ?| ? Stage three ? + --+ --+ ------+| ?15-29 ?| ?Stage four ? | ? Stage four ?+ ---+ ---+ -------+| ?<15 (or dialysis) ? ?| ?Stage five ? | ? Stage five ?+ ---+ ---+ -------+ *Each stage assumes the associated GFR level has been in effect for at least three months. ?Stages 1 to 5, with or without kidney disease, indicate chronic kidney disease. Notes: Determination of stages one and two (with eGFR >59mL/min/1.73 m2) requires estimation of kidney damage for at least three months as defined by structural or functional abnormalities of the kidney, manifested by either:Pathological abnormalities or Markers of kidney damage (including abnormalities in the composition of the blood or urine or abnormalities in imaging tests). Lab Interpretation Abnormal (test code = 67971-6) [facility]. METABOLIC PANEL ([id number])2023-06-21 23:14:57 Test Item Value Reference Range Interpretation Comments NA (test code = 136 mmol/L 135-145 1058048333) K (test code = 4.0 mmol/L 3.5-5.0 2980690253) CL (test code = 98 mmol/L 98-108 8316027585) CO2 TOTAL (test code = 26 mmol/L 23-31 0061126580) AGAP (test code = 12 2-16 0835063427) BUN (test code = 27 mg/dL 7-23 H 4057761457) GLUCOSE (test code = 169 mg/dL 70-110 H 2022630701) CREATININE (test code = 2.05 mg/dL 0.50-1.04 H 0112661679) TOTAL BILI (test code = 0.5 mg/dL 0.1-1.8 1865640663) CALCIUM (test code = 9.1 mg/dL 8.6-10.6 3795152600) T PROTEIN (test code = 6.8 g/dL 6.3-8.2 0442915190) ALBUMIN (test code = 4.0 g/dL 3.5-5.0 7143515164) ALK PHOS (test code = 82 U/L 34-122 1427140047) ALTv (test code = 28 U/L 5-35 1742-6) AST(SGOT) (test code = 26 U/L 13-40 9059247018) eGFR (test code = 23.1 mL/min/1.73m2 6155752614) JOSE GUADALUPE (test code = JOSE GUADALUPE) Association of Glomerular Filtration Rate (GFR) and Staging of Kidney Disease* + --+ --+ ------+| GFR (mL/min/1.73 m2) ?| With Kidney Damage ?| ?Without Kidney Damage+ --------+ --------+ +| ?>90 ?| ?Stage one ?| ? Normal ?+ ---+ ---+ -------+| ?60-89 ?| ?Stage two ?| ? Decreased GFR ? + --+ --+ ------+| ?30-59 ?| ?Stage three ?| ? Stage three ? + --+ --+ ------+| ?15-29 ?| ?Stage four ? | ? Stage four ?+ ---+ ---+ -------+| ?<15 (or dialysis) ? ?| ?Stage five ? | ? Stage five ?+ ---+ ---+ -------+ *Each stage assumes the associated GFR level has been in effect for at least three months. ?Stages 1 to 5, with or without kidney disease, indicate chronic kidney disease. Notes: Determination of stages one and two (with eGFR >59mL/min/1.73 m2) requires estimation of kidney damage for at least three months as defined by structural or functional abnormalities of the kidney, manifested by either:Pathological abnormalities or Markers of kidney damage (including abnormalities in the composition of the blood or urine or abnormalities in imaging tests). Lab Interpretation Abnormal (test code = 01923-9) [facility]. METABOLIC PANEL ([id number])2023-06-21 23:14:57 Test Item Value Reference Range Interpretation Comments NA (test code = 136 mmol/L 135-145 7535574499) K (test code = 4.0 mmol/L 3.5-5.0 0626101337) CL (test code = 98 mmol/L 98-108 8322592783) CO2 TOTAL (test code = 26 mmol/L 23-31 4454798520) AGAP (test code = 12 2-16 3264153316) BUN (test code = 27 mg/dL 7-23 H 7706789814) GLUCOSE (test code = 169 mg/dL 70-110 H 6587594085) CREATININE (test code = 2.05 mg/dL 0.50-1.04 H 0547893337) TOTAL BILI (test code = 0.5 mg/dL 0.1-1.8 5695553433) CALCIUM (test code = 9.1 mg/dL 8.6-10.6 6518405207) T PROTEIN (test code = 6.8 g/dL 6.3-8.2 9245344194) ALBUMIN (test code = 4.0 g/dL 3.5-5.0 5933959933) ALK PHOS (test code = 82 U/L 34-122 4355517115) ALTv (test code = 28 U/L 5-35 1742-6) AST(SGOT) (test code = 26 U/L 13-40 6556835628) eGFR (test code = 23.1 mL/min/1.73m2 0787893560) JOSE GUADALUPE (test code = JOSE GUADALUPE) Association of Glomerular Filtration Rate (GFR) and Staging of Kidney Disease* + --+ --+ ------+| GFR (mL/min/1.73 m2) ?| With Kidney Damage ?| ?Without Kidney Damage+ --------+ --------+ +| ?>90 ?| ?Stage one ?| ? Normal ?+ ---+ ---+ -------+| ?60-89 ?| ?Stage two ?| ? Decreased GFR ? + --+ --+ ------+| ?30-59 ?| ?Stage three ?| ? Stage three ? + --+ --+ ------+| ?15-29 ?| ?Stage four ? | ? Stage four ?+ ---+ ---+ -------+| ?<15 (or dialysis) ? ?| ?Stage five ? | ? Stage five ?+ ---+ ---+ -------+ *Each stage assumes the associated GFR level has been in effect for at least three months. ?Stages 1 to 5, with or without kidney disease, indicate chronic kidney disease. Notes: Determination of stages one and two (with eGFR >59mL/min/1.73 m2) requires estimation of kidney damage for at least three months as defined by structural or functional abnormalities of the kidney, manifested by either:Pathological abnormalities or Markers of kidney damage (including abnormalities in the composition of the blood or urine or abnormalities in imaging tests). Lab Interpretation Abnormal (test code = 66865-8) [facility] / [id number] 23:14:41 Test Item Value Reference Range Interpretation Comments PROTIME PATIENT (test 13.3 See_Comment [Auto mated message] code = 5964-2) The system [employer] generated this result transmitted ref erence range: 12.0 - 1 4.7 Seconds. The re ference range was not u sed to interpret this result as normal/abnor mal. INR (test code = 6301-6) 1.0 Nor mal INR <1.1; Warfarin Therap eutic range 2.0 to 3. 0 or 2.5 to 3.5, dep ending upon the indica tions. Lab Interpretation (test Normal code = 30323-0) [facility] / [id number] 23:14:41 Test Item Value Reference Range Interpretation Comments PROTIME PATIENT (test 13.3 See_Comment [Auto mated message] code = 5964-2) The system ich generated this result transmitted ref erence range: 12.0 - 1 4.7 Seconds. The re ference range was not u sed to interpret this result as normal/abnor mal. INR (test code = 6301-6) 1.0 Nor mal INR <1.1; Warfarin Therap eutic range 2.0 to 3. 0 or 2.5 to 3.5, dep ending upon the indica tions. Lab Interpretation (test Normal code = 57106-7) [facility] / [id number] 23:14:41 Test Item Value Reference Range Interpretation Comments PROTIME PATIENT (test 13.3 See_Comment [Auto mated message] code = 5964-2) The system ich generated this result transmitted ref erence range: 12.0 - 1 4.7 Seconds. The re ference range was not u sed to interpret this result as normal/abnor mal. INR (test code = 6301-6) 1.0 Nor mal INR <1.1; Warfarin Therap eutic range 2.0 to 3. 0 or 2.5 to 3.5, dep ending upon the indica tions. Lab Interpretation (test Normal code = 66944-1) [facility] WITH [id number] 23:06:59 Test Item Value Reference Range Interpretation Comments WBC (test code = 8.44 See_Comment [Automated 3490-2) message] The sy stem which generated this result transmitted reference range : 4.30 - 11.10 10*3/?L. The reference range was not used to interpret this result as normal/abnormal . RBC (test code = 3.48 See_Comment L [Automated 529-8) message] The sy stem which generated this result transmitted reference range : 3.93 - 5.25 10*6/?L. The reference range was not used to interpret this result as normal/abnormal . HGB (test code = 10.8 g/dL 11.6-15.0 L 718-7) HCT (test code = 32.7 % 35.7-45.2 L 4544-3) MCV (test code = 94.0 fL 80.6-95.5 787-2) MCH (test code = 31.0 pg 25.9-32.8 785-6) MCHC (test code = 33.0 g/dL 31.6-35.1 786-4) RDW-SD (test code = 48.5 fL 39.0-49.9 52543-8) RDW-CV (test code = 14.3 % 12.0-15.5 788-0) PLT (test code = 172 See_Comment [Automated 777-3) message] The sy stem which generated this result transmitted reference range : 166 - 358 10*3/ ?L. The reference r bernadine was not used to interpret this result as normal/abnormal . MPV (test code = 10.5 fL 9.5-12.9 12043-1) NRBC/100 WBC (test 0.0 See_Comment [Automat ed code = 0597448405) message] The system which generated this result transmitted reference range : 0.0 - 10.0 /100 WBCs. The refer ence range was not u sed to interpret th is result as normal/abnormal . NRBC x10^3 (test code See_Comment [Auto mated = 2746651127) message] The s ystem which generated this result transmitted reference range : 10*3/?L. The reference range was not used to interpret this result as normal/abnormal . GRAN MAT (NEUT) % 78.3 % (test code = 770-8) IMM GRAN % (test code 0.60 % = 9885751177) LYMPH % (test code = 8.4 % 736-9) MONO % (test code = 9.6 % 5905-5) EOS % (test code = 2.5 % 713-8) BASO % (test code = 0.6 % 706-2) GRAN MAT x10^3(ANC) 6.61 10*3/uL 1.88-7.09 (test code = 1936561662) IMM GRAN x10^3 (test 0.05 10*3/uL 0.00-0.06 code = 0171082643) LYMPH x10^3 (test code 0.71 10*3/uL 1.32-3.29 L = 731-0) MONO x10^3 (test code 0.81 10*3/uL 0.33-0.92 = 742-7) EOS x10^3 (test code = 0.21 10*3/uL 0.03-0.39 711-2) BASO x10^3 (test code 0.05 10*3/uL 0.01-0.07 = 704-7) Lab Interpretation Abnormal (test code = 92938-1) [facility] WITH [id number] 23:06:59 Test Item Value Reference Range Interpretation Comments WBC (test code = 8.44 See_Comment [Automated 6190-2) message] The sy stem which generated this result transmitted reference range : 4.30 - 11.10 10*3/?L. The reference range was not used to interpret this result as normal/abnormal . RBC (test code = 3.48 See_Comment L [Automated 789-8) message] The sy stem which generated this result transmitted reference range : 3.93 - 5.25 10*6/?L. The reference range was not used to interpret this result as normal/abnormal . HGB (test code = 10.8 g/dL 11.6-15.0 L 718-7) HCT (test code = 32.7 % 35.7-45.2 L 4544-3) MCV (test code = 94.0 fL 80.6-95.5 787-2) MCH (test code = 31.0 pg 25.9-32.8 785-6) MCHC (test code = 33.0 g/dL 31.6-35.1 786-4) RDW-SD (test code = 48.5 fL 39.0-49.9 60016-0) RDW-CV (test code = 14.3 % 12.0-15.5 788-0) PLT (test code = 172 See_Comment [Automated 777-3) message] The sy stem which generated this result transmitted reference range : 166 - 358 10*3/ ?L. The reference r bernadine was not used to interpret this result as normal/abnormal . MPV (test code = 10.5 fL 9.5-12.9 88259-5) NRBC/100 WBC (test 0.0 See_Comment [Automat ed code = 8899347380) message] The system which generated this result transmitted reference range : 0.0 - 10.0 /100 WBCs. The refer ence range was not u sed to interpret th is result as normal/abnormal . NRBC x10^3 (test code See_Comment [Auto mated = 1212281311) message] The s ystem which generated this result transmitted reference range : 10*3/?L. The reference range was not used to interpret this result as normal/abnormal . GRAN MAT (NEUT) % 78.3 % (test code = 770-8) IMM GRAN % (test code 0.60 % = 7165020779) LYMPH % (test code = 8.4 % 736-9) MONO % (test code = 9.6 % 5905-5) EOS % (test code = 2.5 % 713-8) BASO % (test code = 0.6 % 706-2) GRAN MAT x10^3(ANC) 6.61 10*3/uL 1.88-7.09 (test code = 1855170072) IMM GRAN x10^3 (test 0.05 10*3/uL 0.00-0.06 code = 2459685370) LYMPH x10^3 (test code 0.71 10*3/uL 1.32-3.29 L = 731-0) MONO x10^3 (test code 0.81 10*3/uL 0.33-0.92 = 742-7) EOS x10^3 (test code = 0.21 10*3/uL 0.03-0.39 711-2) BASO x10^3 (test code 0.05 10*3/uL 0.01-0.07 = 704-7) Lab Interpretation Abnormal (test code = 03751-7) [facility] WITH [id number] 23:06:59 Test Item Value Reference Range Interpretation Comments WBC (test code = 8.44 See_Comment [Automated 9409-2) message] The sy stem which generated this result transmitted reference range : 4.30 - 11.10 10*3/?L. The reference range was not used to interpret this result as normal/abnormal . RBC (test code = 3.48 See_Comment L [Automated 342-8) message] The sy stem which generated this result transmitted reference range : 3.93 - 5.25 10*6/?L. The reference range was not used to interpret this result as normal/abnormal . HGB (test code = 10.8 g/dL 11.6-15.0 L 718-7) HCT (test code = 32.7 % 35.7-45.2 L 4544-3) MCV (test code = 94.0 fL 80.6-95.5 787-2) MCH (test code = 31.0 pg 25.9-32.8 785-6) MCHC (test code = 33.0 g/dL 31.6-35.1 786-4) RDW-SD (test code = 48.5 fL 39.0-49.9 87398-5) RDW-CV (test code = 14.3 % 12.0-15.5 788-0) PLT (test code = 172 See_Comment [Automated 777-3) message] The sy stem which generated this result transmitted reference range : 166 - 358 10*3/ ?L. The reference r bernadine was not used to interpret this result as normal/abnormal . MPV (test code = 10.5 fL 9.5-12.9 29776-9) NRBC/100 WBC (test 0.0 See_Comment [Automat ed code = 2949360216) message] The system which generated this result transmitted reference range : 0.0 - 10.0 /100 WBCs. The refer ence range was not u sed to interpret th is result as normal/abnormal . NRBC x10^3 (test code See_Comment [Auto mated = 2831977689) message] The s ystem which generated this result transmitted reference range : 10*3/?L. The reference range was not used to interpret this result as normal/abnormal . GRAN MAT (NEUT) % 78.3 % (test code = 770-8) IMM GRAN % (test code 0.60 % = 2128345925) LYMPH % (test code = 8.4 % 736-9) MONO % (test code = 9.6 % 5905-5) EOS % (test code = 2.5 % 713-8) BASO % (test code = 0.6 % 706-2) GRAN MAT x10^3(ANC) 6.61 10*3/uL 1.88-7.09 (test code = 8721283682) IMM GRAN x10^3 (test 0.05 10*3/uL 0.00-0.06 code = 9775427062) LYMPH x10^3 (test code 0.71 10*3/uL 1.32-3.29 L = 731-0) MONO x10^3 (test code 0.81 10*3/uL 0.33-0.92 = 742-7) EOS x10^3 (test code = 0.21 10*3/uL 0.03-0.39 711-2) BASO x10^3 (test code 0.05 10*3/uL 0.01-0.07 = 704-7) Lab Interpretation Abnormal (test code = 87744-4) [facility] [id number] 02:07:12 Test Item Value Reference Range Interpretation Comments TROPONIN I (test code = 0.489 ng/mL <=0.034 H 7736257835) JOSE GUADALUPE (test code = JOSE GUADALUPE) Reference (Normal) Range (defined by the 99th percentile reference limit): <= 0.034 ng/mL Note: Cardiac troponin begins to rise 3-4 hours after the onset of ischemia. Repeat in 4-6 hours if the sample was drawn within 3-4 hours of the onset of the symptom and found normal. Diagnosis of myocardial injury is made with acute changes in cTn concentrations with at least one serial sample above the 99th percentile upper reference limit (URL), taken together with the patient's clinical presentation. Biotin has been reported to cause a negative bias, interpret results relative to patient's use of biotin. Lab Interpretation Abnormal (test code = 15340-8) [facility] 00:28:21 Test Item Value Reference Range Interpretation Comments POCT GLU (test code = 5718222228) 115 mg/dL 70-110 H Lab Interpretation (test code = Abnormal 19712-3) [facility] [id number] 23:38:12 Test Item Value Reference Range Interpretation Comments TROPONIN I (test code = 0.020 ng/mL <=0.034 6333974052) JOSE GUADALUPE (test code = JOSE GUADALUPE) Reference (Normal) Range (defined by the 99th percentile reference limit): <= 0.034 ng/mL Note: Cardiac troponin begins to rise 3-4 hours after the onset of ischemia. Repeat in 4-6 hours if the sample was drawn within 3-4 hours of the onset of the symptom and found normal. Diagnosis of myocardial injury is made with acute changes in cTn concentrations with at least one serial sample above the 99th percentile upper reference limit (URL), taken together with the patient's clinical presentation. Biotin has been reported to cause a negative bias, interpret results relative to patient's use of biotin. Lab Interpretation Normal (test code = 02837-5) [facility]. METABOLIC PANEL ([id number])2023-06-04 23:26:47 Test Item Value Reference Range Interpretation Comments NA (test code = 137 mmol/L 135-145 4948689487) K (test code = 3.3 mmol/L 3.5-5.0 L 0363836093) CL (test code = 98 mmol/L 98-108 9755759154) CO2 TOTAL (test code = 29 mmol/L 23-31 7614660729) AGAP (test code = 10 2-16 9973624437) BUN (test code = 20 mg/dL 7-23 3234390897) GLUCOSE (test code = 138 mg/dL 70-110 H 7193594615) CREATININE (test code = 2.00 mg/dL 0.50-1.04 H 8561722187) TOTAL BILI (test code = 0.5 mg/dL 0.1-1.6 7736881160) CALCIUM (test code = 9.6 mg/dL 8.6-10.6 6285851830) T PROTEIN (test code = 6.9 g/dL 6.3-8.2 8060236365) ALBUMIN (test code = 4.0 g/dL 3.5-5.0 4509231960) ALK PHOS (test code = 76 U/L 34-122 0055927969) ALTv (test code = 28 U/L 5-35 1742-6) AST(SGOT) (test code = 19 U/L 13-40 7612921926) eGFR (test code = 23.8 mL/min/1.73m2 4313401612) JOSE GUADALUPE (test code = JOSE GUADALUPE) Association of Glomerular Filtration Rate (GFR) and Staging of Kidney Disease* + --+ --+ ------+| GFR (mL/min/1.73 m2) ?| With Kidney Damage ?| ?Without Kidney Damage+ --------+ --------+ +| ?>90 ?| ?Stage one ?| ? Normal ?+ ---+ ---+ -------+| ?60-89 ?| ?Stage two ?| ? Decreased GFR ? + --+ --+ ------+| ?30-59 ?| ?Stage three ?| ? Stage three ? + --+ --+ ------+| ?15-29 ?| ?Stage four ? | ? Stage four ?+ ---+ ---+ -------+| ?<15 (or dialysis) ? ?| ?Stage five ? | ? Stage five ?+ ---+ ---+ -------+ *Each stage assumes the associated GFR level has been in effect for at least three months. ?Stages 1 to 5, with or without kidney disease, indicate chronic kidney disease. Notes: Determination of stages one and two (with eGFR >59mL/min/1.73 m2) requires estimation of kidney damage for at least three months as defined by structural or functional abnormalities of the kidney, manifested by either:Pathological abnormalities or Markers of kidney damage (including abnormalities in the composition of the blood or urine or abnormalities in imaging tests). Lab Interpretation Abnormal (test code = 80283-9) [facility] WITH [id number] 23:20:11 Test Item Value Reference Range Interpretation Comments WBC (test code = 5.84 See_Comment [Automated 5515-2) message] The sy stem which generated this result transmitted reference range : 4.30 - 11.10 10*3/?L. The reference range was not used to interpret this result as normal/abnormal . RBC (test code = 3.81 See_Comment L [Automated 046-0) message] The sy stem which generated this result transmitted reference range : 3.93 - 5.25 10*6/?L. The reference range was not used to interpret this result as normal/abnormal . HGB (test code = 11.6 g/dL 11.6-15.0 718-7) HCT (test code = 35.3 % 35.7-45.2 L 4544-3) MCV (test code = 92.7 fL 80.6-95.5 787-2) MCH (test code = 30.4 pg 25.9-32.8 785-6) MCHC (test code = 32.9 g/dL 31.6-35.1 786-4) RDW-SD (test code = 45.9 fL 39.0-49.9 14281-1) RDW-CV (test code = 13.4 % 12.0-15.5 788-0) PLT (test code = 174 See_Comment [Automated 777-3) message] The sy stem which generated this result transmitted reference range : 166 - 358 10*3/ ?L. The reference r bernadine was not used to interpret this result as normal/abnormal . MPV (test code = 10.7 fL 9.5-12.9 13755-8) NRBC/100 WBC (test 0.0 See_Comment [Automat ed code = 0978120540) message] The system which generated this result transmitted reference range : 0.0 - 10.0 /100 WBCs. The refer ence range was not u sed to interpret th is result as normal/abnormal . NRBC x10^3 (test code See_Comment [Auto mated = 6432985204) message] The s ystem which generated this result transmitted reference range : 10*3/?L. The reference range was not used to interpret this result as normal/abnormal . GRAN MAT (NEUT) % 65.9 % (test code = 770-8) IMM GRAN % (test code 0.70 % = 3595371545) LYMPH % (test code = 15.4 % 736-9) MONO % (test code = 12.7 % 5905-5) EOS % (test code = 4.8 % 713-8) BASO % (test code = 0.5 % 706-2) GRAN MAT x10^3(ANC) 3.85 10*3/uL 1.88-7.09 (test code = 2420731546) IMM GRAN x10^3 (test 0.04 10*3/uL 0.00-0.06 code = 8345295586) LYMPH x10^3 (test code 0.90 10*3/uL 1.32-3.29 L = 731-0) MONO x10^3 (test code 0.74 10*3/uL 0.33-0.92 = 742-7) EOS x10^3 (test code = 0.28 10*3/uL 0.03-0.39 711-2) BASO x10^3 (test code 0.03 10*3/uL 0.01-0.07 = 704-7) Lab Interpretation Abnormal (test code = 26272-3) [facility] Metabolic Panel (NA, K, CL, CO2, GLUCOSE, BUN, CREATININE, CA)2022-12-29 12:21:28 Test Item Value Reference Range Interpretation Comments NA (test code = 134 mmol/L 135-145 L 2870306384) K (test code = 3.8 mmol/L 3.5-5.0 1313872978) CL (test code = 102 mmol/L 98-108 6586040463) CO2 TOTAL (test code = 22 mmol/L 23-31 L 5637420630) AGAP (test code = 10 2-16 5664396267) BUN (test code = 24 mg/dL 7-23 H 7588890113) GLUCOSE (test code = 126 mg/dL 70-110 H 1605807397) CREATININE (test code = 2.49 mg/dL 0.50-1.04 H 0109458064) CALCIUM (test code = 8.1 mg/dL 8.6-10.6 L 6388202460) eGFR (test code = 18.5 mL/min/1.73m2 2416543119) JOSE GUADALUPE (test code = JOSE GUADALUPE) Association of Glomerular Filtration Rate (GFR) and Staging of Kidney Disease* + --+ --+ ------+| GFR (mL/min/1.73 m2) ?| With Kidney Damage ?| ?Without Kidney Damage+ --------+ --------+ +| ?>90 ?| ?Stage one ?| ? Normal ?+ ---+ ---+ -------+| ?60-89 ?| ?Stage two ?| ? Decreased GFR ? + --+ --+ ------+| ?30-59 ?| ?Stage three ?| ? Stage three ? + --+ --+ ------+| ?15-29 ?| ?Stage four ? | ? Stage four ?+ ---+ ---+ -------+| ?<15 (or dialysis) ? ?| ?Stage five ? | ? Stage five ?+ ---+ ---+ -------+ *Each stage assumes the associated GFR level has been in effect for at least three months. ?Stages 1 to 5, with or without kidney disease, indicate chronic kidney disease. Notes: Determination of stages one and two (with eGFR >59mL/min/1.73 m2) requires estimation of kidney damage for at least three months as defined by structural or functional abnormalities of the kidney, manifested by either:Pathological abnormalities or Markers of kidney damage (including abnormalities in the composition of the blood or urine or abnormalities in imaging tests). Lab Interpretation Abnormal (test code = 17382-6) [facility] with [id number] 12:13:49 Test Item Value Reference Range Interpretation Comments WBC (test code = 5.18 See_Comment [Automated 4490-2) message] The sy stem which generated this result transmitted reference range : 4.30 - 11.10 10*3/?L. The reference range was not used to interpret this result as normal/abnormal . RBC (test code = 2.96 See_Comment L [Automated 279-8) message] The sy stem which generated this result transmitted reference range : 3.93 - 5.25 10*6/?L. The reference range was not used to interpret this result as normal/abnormal . HGB (test code = 8.9 g/dL 11.6-15.0 L 718-7) HCT (test code = 26.9 % 35.7-45.2 L 4544-3) MCV (test code = 90.9 fL 80.6-95.5 787-2) MCH (test code = 30.1 pg 25.9-32.8 785-6) MCHC (test code = 33.1 g/dL 31.6-35.1 786-4) RDW-SD (test code = 44.7 fL 39.0-49.9 05564-9) RDW-CV (test code = 13.6 % 12.0-15.5 788-0) PLT (test code = 160 See_Comment L [Automated 777-3) message] The sy stem which generated this result transmitted reference range : 166 - 358 10*3/ ?L. The reference r bernadine was not used to interpret this result as normal/abnormal . MPV (test code = 10.2 fL 9.5-12.9 20234-0) NRBC/100 WBC (test 0.0 See_Comment [Automat ed code = 0697407326) message] The system which generated this result transmitted reference range : 0.0 - 10.0 /100 WBCs. The refer ence range was not u sed to interpret th is result as normal/abnormal . NRBC x10^3 (test code See_Comment [Auto mated = 5673675125) message] The s ystem which generated this result transmitted reference range : 10*3/?L. The reference range was not used to interpret this result as normal/abnormal . GRAN MAT (NEUT) % 73.9 % (test code = 770-8) IMM GRAN % (test code 0.60 % = 8807675535) LYMPH % (test code = 10.4 % 736-9) MONO % (test code = 14.3 % 5905-5) EOS % (test code = 0.2 % 713-8) BASO % (test code = 0.6 % 706-2) GRAN MAT x10^3(ANC) 3.83 10*3/uL 1.88-7.09 (test code = 6202621893) IMM GRAN x10^3 (test 0.03 10*3/uL 0.00-0.06 code = 3980887195) LYMPH x10^3 (test code 0.54 10*3/uL 1.32-3.29 L = 731-0) MONO x10^3 (test code 0.74 10*3/uL 0.33-0.92 = 742-7) EOS x10^3 (test code = 0.03-0.39 L 711-2) BASO x10^3 (test code 0.03 10*3/uL 0.01-0.07 = 704-7) Lab Interpretation Abnormal (test code = 32437-7) [facility]2022-12-29 07:08:36 Test Item Value Reference Range Interpretation Comments HBsAB (test code = Negative 9245876591) HBsAb 0.00 mIU/mL Semi-Quantitative (test code = 1324787055) JOSE GUADALUPE (test code = Interpretation: JOSE GUADALUPE) ?Hepatitis B Surface Antibody ? Negative - Patient is considered to be not immune to infection with HBV. ? ? Positive - Anti-HBs detected at greater than or equal to 12 mIU/mL. ?Patient is considered to be immune to infection with HBV. ? [facility]Ag[facility]2022-12-29 06:51:14 Test Item Value Reference Range Interpretation Comments HBsAg Semi-Quantitative (test code = 0.06 Negative 5195-3) [facility] [id number] 07:12:23 Test Item Value Reference Range Interpretation Comments NT-proBNP (test code = 35042 pg/mL <=450 H 2719407753) JOSE GUADALUPE (test code = JOSE GUADALUPE) Biotin has been reported to cause a negative bias, interpret results relative to patient's use of biotin. Lab Interpretation (test Abnormal code = 45686-2) [facility]. METABOLIC PANEL ([id number])2022-12-28 06:15:59 Test Item Value Reference Range Interpretation Comments NA (test code = 132 mmol/L 135-145 L 5814879056) K (test code = 4.1 mmol/L 3.5-5.0 2262158068) CL (test code = 103 mmol/L 98-108 1037645755) CO2 TOTAL (test code = 15 mmol/L 23-31 L 9024179790) AGAP (test code = 14 2-16 8523938202) BUN (test code = 42 mg/dL 7-23 H 2442444022) GLUCOSE (test code = 159 mg/dL 70-110 H 9563725787) CREATININE (test code = 3.88 mg/dL 0.50-1.04 H 9245299276) TOTAL BILI (test code = 0.7 mg/dL 0.1-1.6 4024845766) CALCIUM (test code = 7.4 mg/dL 8.6-10.6 L 6763020052) T PROTEIN (test code = 6.1 g/dL 6.3-8.2 L 3720690798) ALBUMIN (test code = 3.5 g/dL 3.5-5.0 2692872795) ALK PHOS (test code = 151 U/L 34-122 H 5707208369) ALTv (test code = 17 U/L 5-35 1742-6) AST(SGOT) (test code = 19 U/L 13-40 9249146833) eGFR (test code = 11.1 mL/min/1.73m2 7733830136) JOSE GUADALUPE (test code = JOSE GUADALUPE) Association of Glomerular Filtration Rate (GFR) and Staging of Kidney Disease* + --+ --+ ------+| GFR (mL/min/1.73 m2) ?| With Kidney Damage ?| ?Without Kidney Damage+ --------+ --------+ +| ?>90 ?| ?Stage one ?| ? Normal ?+ ---+ ---+ -------+| ?60-89 ?| ?Stage two ?| ? Decreased GFR ? + --+ --+ ------+| ?30-59 ?| ?Stage three ?| ? Stage three ? + --+ --+ ------+| ?15-29 ?| ?Stage four ? | ? Stage four ?+ ---+ ---+ -------+| ?<15 (or dialysis) ? ?| ?Stage five ? | ? Stage five ?+ ---+ ---+ -------+ *Each stage assumes the associated GFR level has been in effect for at least three months. ?Stages 1 to 5, with or without kidney disease, indicate chronic kidney disease. Notes: Determination of stages one and two (with eGFR >59mL/min/1.73 m2) requires estimation of kidney damage for at least three months as defined by structural or functional abnormalities of the kidney, manifested by either:Pathological abnormalities or Markers of kidney damage (including abnormalities in the composition of the blood or urine or abnormalities in imaging tests). Lab Interpretation Abnormal (test code = 93509-0) [facility] WITH [id number] 06:00:40 Test Item Value Reference Range Interpretation Comments WBC (test code = 6.51 See_Comment [Myeidvrts 3020-2) message] The sy stem which generated this result transmitted reference range : 4.30 - 11.10 10*3/?L. The reference range was not used to interpret this result as normal/abnormal . RBC (test code = 3.12 See_Comment L [Automated 789-8) message] The sy stem which generated this result transmitted reference range : 3.93 - 5.25 10*6/?L. The reference range was not used to interpret this result as normal/abnormal . HGB (test code = 9.3 g/dL 11.6-15.0 L 718-7) HCT (test code = 29.6 % 35.7-45.2 L 4544-3) MCV (test code = 94.9 fL 80.6-95.5 787-2) MCH (test code = 29.8 pg 25.9-32.8 785-6) MCHC (test code = 31.4 g/dL 31.6-35.1 L 786-4) RDW-SD (test code = 47.8 fL 39.0-49.9 36616-3) RDW-CV (test code = 13.8 % 12.0-15.5 788-0) PLT (test code = 160 See_Comment L [Automated 777-3) message] The sy stem which generated this result transmitted reference range : 166 - 358 10*3/ ?L. The reference r bernadine was not used to interpret this result as normal/abnormal . MPV (test code = 10.2 fL 9.5-12.9 29261-4) NRBC/100 WBC (test 0.0 See_Comment [Automat ed code = 2056632365) message] The system which generated this result transmitted reference range : 0.0 - 10.0 /100 WBCs. The refer ence range was not u sed to interpret th is result as normal/abnormal . NRBC x10^3 (test code See_Comment [Auto mated = 6774155275) message] The s ystem which generated this result transmitted reference range : 10*3/?L. The reference range was not used to interpret this result as normal/abnormal . GRAN MAT (NEUT) % 86.4 % (test code = 770-8) IMM GRAN % (test code 0.50 % = 4664284695) LYMPH % (test code = 4.6 % 736-9) MONO % (test code = 8.0 % 5905-5) EOS % (test code = 0.0 % 713-8) BASO % (test code = 0.5 % 706-2) GRAN MAT x10^3(ANC) 5.63 10*3/uL 1.88-7.09 (test code = 8109022940) IMM GRAN x10^3 (test 0.03 10*3/uL 0.00-0.06 code = 1614131671) LYMPH x10^3 (test code 0.30 10*3/uL 1.32-3.29 L = 731-0) MONO x10^3 (test code 0.52 10*3/uL 0.33-0.92 = 742-7) EOS x10^3 (test code = 0.03-0.39 L 711-2) BASO x10^3 (test code 0.03 10*3/uL 0.01-0.07 = 704-7) Lab Interpretation Abnormal (test code = 54371-0) [facility] GLUCOSE (AUTOMATED)2022-05-22 17:39:07 Test Item Value Reference Range Interpretation Comments POCT GLU (test code = 0501000185) 132 mg/dL 70-110 H Lab Interpretation (test code = Abnormal 63471-8) [facility] GLUCOSE (AUTOMATED)2022-05-22 13:42:49 Test Item Value Reference Range Interpretation Comments POCT GLU (test code = 5614841551) 85 mg/dL 70-110 Lab Interpretation (test code = Normal 28670-9) [facility] WITH [id number] 11:02:30 Test Item Value Reference Range Interpretation Comments WBC (test code = See_Comment L [Automated 5590-2) message] The sy stem which generated this result transmitted reference range : 4.30 - 11.10 10*3/?L. The reference range was not used to interpret this result as normal/abnormal . RBC (test code = See_Comment L [Automated 179-8) message] The sy stem which generated this result transmitted reference range : 3.93 - 5.25 10*6/?L. The reference range was not used to interpret this result as normal/abnormal . HGB (test code = 9.3 g/dL 11.6-15.0 L 718-7) HCT (test code = 28.1 % 35.7-45.2 L 4544-3) MCV (test code = 92.7 fL 80.6-95.5 787-2) MCH (test code = 30.7 pg 25.9-32.8 785-6) MCHC (test code = 33.1 g/dL 31.6-35.1 786-4) RDW-SD (test code = 49.6 fL 39.0-49.9 06102-2) RDW-CV (test code = 14.5 % 12.0-15.5 788-0) PLT (test code = See_Comment L [Automated 777-3) message] The sy stem which generated this result transmitted reference range : 166 - 358 10*3/ ?L. The reference r bernadine was not used to interpret this result as normal/abnormal . MPV (test code = 10.5 fL 9.5-12.9 57143-5) IPF % (test code = 3.5 % 1.3-7.7 Platelet count 0676561775) measured by fluorescence method. NRBC/100 WBC (test See_Comment [Automat ed code = 7815341773) message] The system which generated this result transmitted reference range : 0.0 - 10.0 /100 WBCs. The refer ence range was not u sed to interpret th is result as normal/abnormal . NRBC x10^3 (test code <0.01 See_Comment [Auto mated = 7844909162) message] The s ystem which generated this result transmitted reference range : 10*3/?L. The reference range was not used to interpret this result as normal/abnormal . GRAN MAT (NEUT) % 55.0 % (test code = 770-8) IMM GRAN % (test code 0.40 % = 5905597106) LYMPH % (test code = 24.6 % 736-9) MONO % (test code = 20.0 % 5905-5) EOS % (test code = 0.0 % 713-8) BASO % (test code = 0.0 % 706-2) GRAN MAT x10^3(ANC) 1.32 10*3/uL 1.88-7.09 L (test code = 8041812376) IMM GRAN x10^3 (test <0.03 0.00-0.06 code = 2499260031) LYMPH x10^3 (test code 0.59 10*3/uL 1.32-3.29 L = 731-0) MONO x10^3 (test code 0.48 10*3/uL 0.33-0.92 = 742-7) EOS x10^3 (test code = <0.03 0.03-0.39 L 711-2) BASO x10^3 (test code <0.03 0.01-0.07 = 704-7) Lab Interpretation Abnormal (test code = 20948-8) [facility] [id number] 10:44:27 Test Item Value Reference Range Interpretation Comments NT-proBNP (test code 56518 pg/mL See_Comment H [Autom ated = 0457675857) message] The system which generated this result transmitted reference range : <=450. The reference range was not used to interpret this result as normal/abnormal . JOSE GUADALUPE (test code = JOSE GUADALUPE) Biotin has been reported to cause a negative bias, interpret results relative to patient's use of biotin. Lab Interpretation Abnormal (test code = 16993-9) [facility]OLIC PAN[facility] (08822)2022-05-22 10:38:49 Test Item Value Reference Range Interpretation Comments NA (test code = 136 mmol/L 135-145 2969137321) K (test code = 4.1 mmol/L 3.5-5.0 8951604661) CL (test code = 104 mmol/L 98-108 9633354170) CO2 TOTAL (test code = 22 mmol/L 23-31 L 7542387431) AGAP (test code = 2-16 8719986155) BUN (test code = 52 mg/dL 7-23 H 3044490768) GLUCOSE (test code = 121 mg/dL 70-110 H 0451643748) CREATININE (test code = 2.39 mg/dL 0.50-1.04 H 9310273765) TOTAL BILI (test code = 0.5 mg/dL 0.1-1.7 5229151488) CALCIUM (test code = 8.8 mg/dL 8.6-10.6 4209104813) T PROTEIN (test code = 5.5 g/dL 6.3-8.2 L 1047744273) ALBUMIN (test code = 3.3 g/dL 3.5-5.0 L 9716224104) ALK PHOS (test code = 69 U/L 34-122 5103023606) ALTv (test code = 140 U/L 5-35 H 1742-6) AST(SGOT) (test code = 88 U/L 13-40 H 4882595719) eGFR (test code = mL/min/1.73m2 8895135600) JOSE GUADALUPE (test code = JOSE GUADALUPE) Association of Glomerular Filtration Rate (GFR) and Staging of Kidney Disease* + --+ --+ ------+| GFR (mL/min/1.73 m2) ?| With Kidney Damage ?| ?Without Kidney Damage+ --------+ --------+ +| ?>90 ?| ?Stage one ?| ? Normal ?+ ---+ ---+ -------+| ?60-89 ?| ?Stage two ?| ? Decreased GFR ? + --+ --+ ------+| ?30-59 ?| ?Stage three ?| ? Stage three ? + --+ --+ ------+| ?15-29 ?| ?Stage four ? | ? Stage four ?+ ---+ ---+ -------+| ?<15 (or dialysis) ? ?| ?Stage five ? | ? Stage five ?+ ---+ ---+ -------+ *Each stage assumes the associated GFR level has been in effect for at least three months. ?Stages 1 to 5, with or without kidney disease, indicate chronic kidney disease. Notes: Determination of stages one and two (with eGFR >59mL/min/1.73 m2) requires estimation of kidney damage for at least three months as defined by structural or functional abnormalities of the kidney, manifested by either:Pathological abnormalities or Markers of kidney damage (including abnormalities in the composition of the blood or urine or abnormalities in imaging tests). Lab Interpretation Abnormal (test code = 02490-5) [facility] 10:38:49 Test Item Value Reference Range Interpretation Comments MAGNESIUM (test code = 3065078047) 2.0 mg/dL 1.7-2.4 Lab Interpretation (test code = Normal 27711-4) [facility] 10:38:49 Test Item Value Reference Range Interpretation Comments PHOSPHORUS (test code = 3389514769) 4.5 mg/dL 2.5-5.0 Lab Interpretation (test code = Normal 97070-7) [facility] GLUCOSE (AUTOMATED)2022-05-22 02:17:57 Test Item Value Reference Range Interpretation Comments POCT GLU (test code = 2396524458) 320 mg/dL 70-110 H Lab Interpretation (test code = Abnormal 89524-0) [facility] GLUCOSE (AUTOMATED)2022-05-22 02:17:57 Test Item Value Reference Range Interpretation Comments POCT GLU (test code = 4293966168) 290 mg/dL 70-110 H Lab Interpretation (test code = Abnormal 27425-3) [facility] GLUCOSE (AUTOMATED)2022-05-21 21:21:35 Test Item Value Reference Range Interpretation Comments POCT GLU (test code = 3178225981) 241 mg/dL 70-110 H Lab Interpretation (test code = Abnormal 33639-5) [facility] GLUCOSE (AUTOMATED)2022-05-21 16:10:10 Test Item Value Reference Range Interpretation Comments POCT GLU (test code = 6035251369) 128 mg/dL 70-110 H Lab Interpretation (test code = Abnormal 93903-8) [facility] GLUCOSE (AUTOMATED)2022-05-21 13:06:22 Test Item Value Reference Range Interpretation Comments POCT GLU (test code = 3545548335) 83 mg/dL 70-110 Lab Interpretation (test code = Normal 24054-5) [facility] [id number] 12:05:50 Test Item Value Reference Range Interpretation Comments NT-proBNP (test code 14449 pg/mL See_Comment H [Autom ated = 5017544872) message] The system which generated this result transmitted reference range : <=450. The reference range was not used to interpret this result as normal/abnormal . JOSE GUADALUPE (test code = JOSE GUADALUPE) Biotin has been reported to cause a negative bias, interpret results relative to patient's use of biotin. Lab Interpretation Abnormal (test code = 56958-4) [facility] 11:56:51 Test Item Value Reference Range Interpretation Comments MAGNESIUM (test code = 2665958794) 1.6 mg/dL 1.7-2.4 L Lab Interpretation (test code = Abnormal 11431-0) [facility] METABOLIC PANEL (NA, K, CL, CO2, GLUCOSE, BUN, CREATININE, CA)2022-05-21 11:56:31 Test Item Value Reference Range Interpretation Comments NA (test code = 137 mmol/L 135-145 5408756701) K (test code = 3.3 mmol/L 3.5-5.0 L 1470244243) CL (test code = 107 mmol/L 98-108 6344202347) CO2 TOTAL (test code = 19 mmol/L 23-31 L 0332069993) AGAP (test code = 2-16 8075283936) BUN (test code = 65 mg/dL 7-23 H 6382887384) GLUCOSE (test code = 91 mg/dL 70-110 6987365354) CREATININE (test code = 3.22 mg/dL 0.50-1.04 H 6341337540) CALCIUM (test code = 6.8 mg/dL 8.6-10.6 L 0125967428) eGFR (test code = mL/min/1.73m2 3531608808) JOSE GUADALUPE (test code = JOSE GUADALUPE) Association of Glomerular Filtration Rate (GFR) and Staging of Kidney Disease* + --+ --+ ------+| GFR (mL/min/1.73 m2) ?| With Kidney Damage ?| ?Without Kidney Damage+ --------+ --------+ +| ?>90 ?| ?Stage one ?| ? Normal ?+ ---+ ---+ -------+| ?60-89 ?| ?Stage two ?| ? Decreased GFR ? + --+ --+ ------+| ?30-59 ?| ?Stage three ?| ? Stage three ? + --+ --+ ------+| ?15-29 ?| ?Stage four ? | ? Stage four ?+ ---+ ---+ -------+| ?<15 (or dialysis) ? ?| ?Stage five ? | ? Stage five ?+ ---+ ---+ -------+ *Each stage assumes the associated GFR level has been in effect for at least three months. ?Stages 1 to 5, with or without kidney disease, indicate chronic kidney disease. Notes: Determination of stages one and two (with eGFR >59mL/min/1.73 m2) requires estimation of kidney damage for at least three months as defined by structural or functional abnormalities of the kidney, manifested by either:Pathological abnormalities or Markers of kidney damage (including abnormalities in the composition of the blood or urine or abnormalities in imaging tests). Lab Interpretation Abnormal (test code = 75736-4) [facility] 11:56:31 Test Item Value Reference Range Interpretation Comments PHOSPHORUS (test code = 1053799270) 5.0 mg/dL 2.5-5.0 Lab Interpretation (test code = Normal 25735-7) [facility] GLUCOSE (AUTOMATED)2022-05-21 02:01:29 Test Item Value Reference Range Interpretation Comments POCT GLU (test code = 7171710942) 271 mg/dL 70-110 H Lab Interpretation (test code = Abnormal 52440-6) [facility] GLUCOSE (AUTOMATED)2022-05-20 23:35:33 Test Item Value Reference Range Interpretation Comments POCT GLU (test code = 8127317611) 241 mg/dL 70-110 H Lab Interpretation (test code = Abnormal 93842-0) [facility] GLUCOSE (AUTOMATED)2022-05-20 17:14:57 Test Item Value Reference Range Interpretation Comments POCT GLU (test code = 0858082439) 167 mg/dL 70-110 H Lab Interpretation (test code = Abnormal 39709-9) [facility] GLUCOSE (AUTOMATED)2022-05-20 12:57:45 Test Item Value Reference Range Interpretation Comments POCT GLU (test code = 6633124853) 97 mg/dL 70-110 Lab Interpretation (test code = Normal 46124-9) [facility] (NA, K, CL, CO2, GLUCOSE, BUN, CREATININE, CA)2022-05-20 11:40:06 Test Item Value Reference Range Interpretation Comments NA (test code = 135 mmol/L 135-145 6723321971) K (test code = 3.6 mmol/L 3.5-5.0 1350301437) CL (test code = 102 mmol/L 98-108 1630965166) CO2 TOTAL (test code = 22 mmol/L 23-31 L 4620223914) AGAP (test code = 2-16 5094010543) BUN (test code = 53 mg/dL 7-23 H 8122395507) GLUCOSE (test code = 105 mg/dL 70-110 9325204850) CREATININE (test code = 3.00 mg/dL 0.50-1.04 H 1861953962) CALCIUM (test code = 7.5 mg/dL 8.6-10.6 L 0066535946) eGFR (test code = mL/min/1.73m2 3414225827) JOSE GUADALUPE (test code = JOSE GUADALUPE) Association of Glomerular Filtration Rate (GFR) and Staging of Kidney Disease* + --+ --+ ------+| GFR (mL/min/1.73 m2) ?| With Kidney Damage ?| ?Without Kidney Damage+ --------+ --------+ +| ?>90 ?| ?Stage one ?| ? Normal ?+ ---+ ---+ -------+| ?60-89 ?| ?Stage two ?| ? Decreased GFR ? + --+ --+ ------+| ?30-59 ?| ?Stage three ?| ? Stage three ? + --+ --+ ------+| ?15-29 ?| ?Stage four ? | ? Stage four ?+ ---+ ---+ -------+| ?<15 (or dialysis) ? ?| ?Stage five ? | ? Stage five ?+ ---+ ---+ -------+ *Each stage assumes the associated GFR level has been in effect for at least three months. ?Stages 1 to 5, with or without kidney disease, indicate chronic kidney disease. Notes: Determination of stages one and two (with eGFR >59mL/min/1.73 m2) requires estimation of kidney damage for at least three months as defined by structural or functional abnormalities of the kidney, manifested by either:Pathological abnormalities or Markers of kidney damage (including abnormalities in the composition of the blood or urine or abnormalities in imaging tests). Lab Interpretation Abnormal (test code = 45710-7) [facility] Test Item Value Reference Range Interpretation Comments MAGNESIUM (test code = 1611492692) 1.7 mg/dL 1.7-2.4 Lab Interpretation (test code = Normal 65302-1) [facility] 11:39:46 Test Item Value Reference Range Interpretation Comments PHOSPHORUS (test code = 5360107628) 5.0 mg/dL 2.5-5.0 Lab Interpretation (test code = Normal 45994-2) [facility] [id number] 11:25:45 Test Item Value Reference Range Interpretation Comments WBC (test code = See_Comment L [Automated 6690-2) message] The sy stem which generated this result transmitted reference range : 4.30 - 11.10 10*3/?L. The reference range was not used to interpret this result as normal/abnormal . RBC (test code = See_Comment L [Automated 789-8) message] The sy stem which generated this result transmitted reference range : 3.93 - 5.25 10*6/?L. The reference range was not used to interpret this result as normal/abnormal . HGB (test code = 9.5 g/dL 11.6-15.0 L 718-7) HCT (test code = 28.7 % 35.7-45.2 L 4544-3) MCV (test code = 93.8 fL 80.6-95.5 787-2) MCH (test code = 31.0 pg 25.9-32.8 785-6) MCHC (test code = 33.1 g/dL 31.6-35.1 786-4) RDW-SD (test code = 50.5 fL 39.0-49.9 H 46244-1) RDW-CV (test code = 14.6 % 12.0-15.5 788-0) PLT (test code = See_Comment L [Automated 777-3) message] The sy stem which generated this result transmitted reference range : 166 - 358 10*3/ ?L. The reference r bernadine was not used to interpret this result as normal/abnormal . MPV (test code = 10.4 fL 9.5-12.9 95440-0) NRBC/100 WBC (test See_Comment [Automat ed code = 3719952016) message] The system which generated this result transmitted reference range : 0.0 - 10.0 /100 WBCs. The refer ence range was not u sed to interpret th is result as normal/abnormal . NRBC x10^3 (test code <0.01 See_Comment [Auto mated = 4321727559) message] The s ystem which generated this result transmitted reference range : 10*3/?L. The reference range was not used to interpret this result as normal/abnormal . GRAN MAT (NEUT) % 58.0 % (test code = 770-8) IMM GRAN % (test code 0.90 % = 2316183946) LYMPH % (test code = 21.2 % 736-9) MONO % (test code = 19.9 % 5905-5) EOS % (test code = 0.0 % 713-8) BASO % (test code = 0.0 % 706-2) GRAN MAT x10^3(ANC) 1.31 10*3/uL 1.88-7.09 L (test code = 2660666410) IMM GRAN x10^3 (test <0.03 0.00-0.06 code = 3627120382) LYMPH x10^3 (test code 0.48 10*3/uL 1.32-3.29 L = 731-0) MONO x10^3 (test code 0.45 10*3/uL 0.33-0.92 = 742-7) EOS x10^3 (test code = <0.03 0.03-0.39 L 711-2) BASO x10^3 (test code <0.03 0.01-0.07 = 704-7) Lab Interpretation Abnormal (test code = 06457-2) [facility]AT[facility] (75767) (ALB,T.PRO,BILI T,BU/BC,ALT,AST,ALK PHOS)2022-05-20 06:00:28 Test Item Value Reference Range Interpretation Comments TOTAL BILI (test code = 5445781046) 0.4 mg/dL 0.1-1.1 BILI UNCON (test code = 3294020656) 0.1 mg/dL 0.1-1.1 BILI CONJ (test code = 5426196339) 0.0 mg/dL 0.0-0.3 T PROTEIN (test code = 5215293910) 5.0 g/dL 6.3-8.2 L ALBUMIN (test code = 8703480530) 2.9 g/dL 3.5-5.0 L ALK PHOS (test code = 5087183428) 71 U/L 34-122 ALTv (test code = 1742-6) 58 U/L 5-35 H AST(SGOT) (test code = 4859796050) 70 U/L 13-40 H Lab Interpretation (test code = Abnormal 43122-1) [facility] GLUCOSE (AUTOMATED)2022-05-20 01:24:40 Test Item Value Reference Range Interpretation Comments POCT GLU (test code = 6813759379) 261 mg/dL 70-110 H Lab Interpretation (test code = Abnormal 45793-5) [facility] GLUCOSE (AUTOMATED)2022-05-19 22:27:27 Test Item Value Reference Range Interpretation Comments POCT GLU (test code = 7090531956) 301 mg/dL 70-110 H Lab Interpretation (test code = Abnormal 04570-8) [facility] GLUCOSE (AUTOMATED)2022-05-19 18:02:23 Test Item Value Reference Range Interpretation Comments POCT GLU (test code = 4339005308) 101 mg/dL 70-110 Lab Interpretation (test code = Normal 16936-0) [facility] HospitalVITAMIN B12, [id number] 17:40:09 Test Item Value Reference Range Interpretation Comments VIT B12 (test code = 254 pg/mL 240-930 7654496597) JOSE GUADALUPE (test code = JOSE GUADALUPE) Biotin has been reported to cause a positive bias, interpret results relative to patient's use of biotin. Lab Interpretation (test Normal code = 83993-8) [facility] 16:39:27 Test Item Value Reference Range Interpretation Comments FOLATE SER (test code = >20.0 3.0-20.0 H Biot in has been 3950701141) reported to cau se a positive bias, interpret resul ts relative to patient's use o f biotin. Lab Interpretation (test Abnormal code = 63839-2) [facility] WITH [id number] 15:24:14 Test Item Value Reference Range Interpretation Comments WBC (test code = See_Comment L [Automated 6690-2) message] The sy stem which generated this result transmitted reference range : 4.30 - 11.10 10*3/?L. The reference range was not used to interpret this result as normal/abnormal . RBC (test code = See_Comment L [Automated 789-8) message] The sy stem which generated this result transmitted reference range : 3.93 - 5.25 10*6/?L. The reference range was not used to interpret this result as normal/abnormal . HGB (test code = 9.0 g/dL 11.6-15.0 L 718-7) HCT (test code = 27.4 % 35.7-45.2 L 4544-3) MCV (test code = 95.8 fL 80.6-95.5 H 787-2) MCH (test code = 31.5 pg 25.9-32.8 785-6) MCHC (test code = 32.8 g/dL 31.6-35.1 786-4) RDW-SD (test code = 51.3 fL 39.0-49.9 H 06389-9) RDW-CV (test code = 14.6 % 12.0-15.5 788-0) PLT (test code = See_Comment L [Automated 777-3) message] The sy stem which generated this result transmitted reference range : 166 - 358 10*3/ ?L. The reference r bernadine was not used to interpret this result as normal/abnormal . MPV (test code = 10.2 fL 9.5-12.9 93221-3) NRBC/100 WBC (test See_Comment [Automat ed code = 9626874504) message] The system which generated this result transmitted reference range : 0.0 - 10.0 /100 WBCs. The refer ence range was not u sed to interpret th is result as normal/abnormal . NRBC x10^3 (test code <0.01 See_Comment [Auto mated = 9320838982) message] The s ystem which generated this result transmitted reference range : 10*3/?L. The reference range was not used to interpret this result as normal/abnormal . GRAN MAT (NEUT) % 70.4 % (test code = 770-8) IMM GRAN % (test code 0.40 % = 1672006772) LYMPH % (test code = 16.2 % 736-9) MONO % (test code = 13.0 % 5905-5) EOS % (test code = 0.0 % 713-8) BASO % (test code = 0.0 % 706-2) GRAN MAT x10^3(ANC) 2.00 10*3/uL 1.88-7.09 (test code = 2457143207) IMM GRAN x10^3 (test <0.03 0.00-0.06 code = 4821676724) LYMPH x10^3 (test code 0.46 10*3/uL 1.32-3.29 L = 731-0) MONO x10^3 (test code 0.37 10*3/uL 0.33-0.92 = 742-7) EOS x10^3 (test code = <0.03 0.03-0.39 L 711-2) BASO x10^3 (test code <0.03 0.01-0.07 = 704-7) Lab Interpretation Abnormal (test code = 71163-1) [id number] 15:16:11 Test Item Value Reference Range Interpretation Comments ALBUMIN (test code = 2.9 g/dL 3.5-5.0 L 9688296944) CALCIUM (test code = 6.7 mg/dL 8.6-10.6 L 9576290868) CO2 TOTAL (test code = 17 mmol/L 23-31 L 5568278090) CREATININE (test code = 4.44 mg/dL 0.50-1.04 H 0189583121) GLUCOSE (test code = 170 mg/dL 70-110 H 6762910802) K (test code = 3.7 mmol/L 3.5-5.0 3415229034) NA (test code = 135 mmol/L 135-145 0222049030) BUN (test code = 62 mg/dL 7-23 H 9890651425) PHOSPHORUS (test code = 5.7 mg/dL 2.5-5.0 H 3198770523) eGFR (test code = mL/min/1.73m2 2534065864) JOSE GUADALUPE (test code = JOSE GUADALUPE) Association of Glomerular Filtration Rate (GFR) and Staging of Kidney Disease* + --+ --+ ------+| GFR (mL/min/1.73 m2) ?| With Kidney Damage ?| ?Without Kidney Damage+ --------+ --------+ +| ?>90 ?| ?Stage one ?| ? Normal ?+ ---+ ---+ -------+| ?60-89 ?| ?Stage two ?| ? Decreased GFR ? + --+ --+ ------+| ?30-59 ?| ?Stage three ?| ? Stage three ? + --+ --+ ------+| ?15-29 ?| ?Stage four ? | ? Stage four ?+ ---+ ---+ -------+| ?<15 (or dialysis) ? ?| ?Stage five ? | ? Stage five ?+ ---+ ---+ -------+ *Each stage assumes the associated GFR level has been in effect for at least three months. ?Stages 1 to 5, with or without kidney disease, indicate chronic kidney disease. Notes: Determination of stages one and two (with eGFR >59mL/min/1.73 m2) requires estimation of kidney damage for at least three months as defined by structural or functional abnormalities of the kidney, manifested by either:Pathological abnormalities or Markers of kidney damage (including abnormalities in the composition of the blood or urine or abnormalities in imaging tests). Lab Interpretation Abnormal (test code = 82397-2) [facility] 13:32:03 Test Item Value Reference Range Interpretation Comments MAGNESIUM (test code = 1345336066) 1.6 mg/dL 1.7-2.4 L Lab Interpretation (test code = Abnormal 79679-7) [facility]ABOLIC PANEL (NA, K, CL, CO2, GLUCOSE, BUN, CREATININE, CA)2022-05-19 13:31:42 Test Item Value Reference Range Interpretation Comments NA (test code = 135 mmol/L 135-145 7330065043) K (test code = 4.1 mmol/L 3.5-5.0 5389242993) CL (test code = 106 mmol/L 98-108 0540869416) CO2 TOTAL (test code = 18 mmol/L 23-31 L 2754368910) AGAP (test code = 2-16 5675094126) BUN (test code = 64 mg/dL 7-23 H 0775695255) GLUCOSE (test code = 103 mg/dL 70-110 8656032794) CREATININE (test code = 4.68 mg/dL 0.50-1.04 H 8469397584) CALCIUM (test code = 6.7 mg/dL 8.6-10.6 L 0749625668) eGFR (test code = mL/min/1.73m2 7615335665) JOSE GUADALUPE (test code = JOSE GUADALUPE) Association of Glomerular Filtration Rate (GFR) and Staging of Kidney Disease* + --+ --+ ------+| GFR (mL/min/1.73 m2) ?| With Kidney Damage ?| ?Without Kidney Damage+ --------+ --------+ +| ?>90 ?| ?Stage one ?| ? Normal ?+ ---+ ---+ -------+| ?60-89 ?| ?Stage two ?| ? Decreased GFR ? + --+ --+ ------+| ?30-59 ?| ?Stage three ?| ? Stage three ? + --+ --+ ------+| ?15-29 ?| ?Stage four ? | ? Stage four ?+ ---+ ---+ -------+| ?<15 (or dialysis) ? ?| ?Stage five ? | ? Stage five ?+ ---+ ---+ -------+ *Each stage assumes the associated GFR level has been in effect for at least three months. ?Stages 1 to 5, with or without kidney disease, indicate chronic kidney disease. Notes: Determination of stages one and two (with eGFR >59mL/min/1.73 m2) requires estimation of kidney damage for at least three months as defined by structural or functional abnormalities of the kidney, manifested by either:Pathological abnormalities or Markers of kidney damage (including abnormalities in the composition of the blood or urine or abnormalities in imaging tests). Lab Interpretation Abnormal (test code = 72903-3) [facility]HEPAT[facility] FUNCTION PAN[facility] (71303) (ALB,T.PRO,BILI T,BU/BC,ALT,AST,ALK PHOS)2022-05-19 13:31:22 Test Item Value Reference Range Interpretation Comments TOTAL BILI (test code = 4544557030) 0.4 mg/dL 0.1-1.1 BILI UNCON (test code = 7316137562) 0.0 mg/dL 0.1-1.1 L BILI CONJ (test code = 2140832010) 0.0 mg/dL 0.0-0.3 T PROTEIN (test code = 9815975205) 5.0 g/dL 6.3-8.2 L ALBUMIN (test code = 8215346873) 2.8 g/dL 3.5-5.0 L ALK PHOS (test code = 4311024388) 63 U/L 34-122 ALTv (test code = 1742-6) 46 U/L 5-35 H AST(SGOT) (test code = 3558040971) 63 U/L 13-40 H Lab Interpretation (test code = Abnormal 09795-5) [facility] 13:31:22 Test Item Value Reference Range Interpretation Comments PHOSPHORUS (test code = 7297602147) 6.0 mg/dL 2.5-5.0 H Lab Interpretation (test code = Abnormal 38236-7) [facility]OD[facility]SE [facility]AUTOMATED)2022-05-19 12:52:23 Test Item Value Reference Range Interpretation Comments POCT GLU (test code = 6193683592) 68 mg/dL 70-110 L Lab Interpretation (test code = Abnormal 55199-3) [facility] HospitalLADCATE [id number] 12:51:42 Test Item Value Reference Range Interpretation Comments LDH (test code = 6337053665) 592 U/L 120-246 H Lab Interpretation (test code = Abnormal 44576-3) [facility] HospitalProthrombin Time / [id number] 11:27:14 Test Item Value Reference Range Interpretation Comments PROTIME PATIENT (test See_Comment H [Auto mated message] code = 5964-2) The system [employer] generated this result transmitted ref erence range: 12.0 - 1 4.7 Seconds. The reference range was not used to int erpret this result as normal/abnormal . INR (test code = 6301-6) Nor mal INR <1.1; Warfarin Therap eutic range 2.0 to 3. 0 or 2.5 to 3.5, dep ending upon the indica tions. Lab Interpretation (test Abnormal code = 38808-3) [facility]2022-05-19 04:36:00 Test Item Value Reference Range Interpretation Comments POCT GLU (test code = 3665274290) 246 mg/dL 70-110 H Lab Interpretation (test code = Abnormal 71180-4) [facility] HospitalFERRITIN [id number] 03:41:11 Test Item Value Reference Range Interpretation Comments FERRITIN (test code = >44389.0 11.0-264.0 H 4410497444) JOSE GUADALUPE (test code = JOSE GUADALUPE) Biotin has been reported to cause a negative bias, interpret results relative to patient's use of biotin. Lab Interpretation (test Abnormal code = 42794-9) [facility] HospitalCREATINE [id number] 00:55:23 Test Item Value Reference Range Interpretation Comments CK (test code = 4114884806) 56 U/L 33-194 Lab Interpretation (test code = Normal 61068-7) [facility] HospitalHEPATITIS B SURFACE [id number] 23:48:41 Test Item Value Reference Range Interpretation Comments HBsAB (test code = Negative 2467170800) HBsAb mIU/mL Semi-Quantitative (test code = 7964722054) JOSE GUADALUPE (test code = Interpretation: JOSE GUADALUPE) ?Hepatitis B Surface Antibody ? Negative - Patient is considered to be not immune to infection with HBV. ? ? Positive - Anti-HBs detected at greater than or equal to 12 mIU/mL. ?Patient is considered to be immune to infection with HBV. ? [facility] HospitalHEPATITIS B SURFACE [id number] 23:31:19 Test Item Value Reference Range Interpretation Comments HBsAg Semi-Quantitative (test code = Negative Negative 5195-3) [facility] HospitalPROCALCITONIN2022-07-04 23:28:13 Test Item Value Reference Range Interpretation Comments Procalcitonin (test 5.00 ng/mL <0.07 H code = 8428353534) JOSE GUADALUPE (test code = JOSE GUADALUPE) INTERPRETATION OF PROCALCITONIN RESULTS IN ADULTS >= 18 YEARS OF AGE Initiation and discontinuation of antibiotics on patients with suspected or confirmed Lower Respiratory Tract Infection in Adults >= 18 years of age. + +-------- --------+ + -----+|Procalcitonin |Interpretation ?|Antibiotic ? ? |Considerations ? |ng/mL ? | ?|recommendation | ? + +-------- --------+ + -----+| <0.1 ? | Bacterial ? ? ?| Strongly ? ? ?| ? | ?| infection very | discouraged ? | Overruling: ? | ?| unlikely ? ? ? | ? | ? Clinically unstable ? ? ? + +-------- --------+ + ? High risk for adverse ? ? | <0.25 ?| Bacterial ? ? ?| Discouraged ? | ? outcome ? | ?| infection ? ? ?| ? | ? SEE IMPORTANT NOTE ?| ?| unlikely ? ? ? | ? | ? + +-------- --------+ + -----+| >=0.25 ? ? ? | Bacterial ? ? ?| Encouraged ? ?| ? | ?| infection ? ? ?| ? | ? | ?| likely ? | ? | Consider treatment failure ?+ +------- ---------+ -+ if levels does not decrease | >0.5 ? | Bacterial ? ? ?| Strongly ? ? ?| appropriately ? | ?| infection very | encouraged ? ?| ? | ?| likely ? | ? | ? + +-------- --------+ + -----+ Discontinuation of antibiotics in high-acuity patients with suspected or confirmed sepsis in Adults >= 18 years of age. + +-------- --------+ + -----+|Procalcitonin |Interpretation ?|Antibiotic ? ? |Considerations ? |ng/mL ? | ?|recommendation | ? + +-------- --------+ + -----+| <0.25 ?| Bacterial ? ? ?| Strongly ? ? ?| ? | ?| infection very | discouraged ? | Overruling: ? | ?| unlikely ? ? ? | ? | ? Clinically unstable ? ? ? + +-------- --------+ + ? High risk for adverse ? ? | <0.5 or drop | Bacterial ? ? ?| Discouraged ? | ? outcome ? | >80% from ? ?| infection ? ? ?| ? | ? SEE IMPORTANT NOTE ?| highest PCT ?| unlikely ? ? ? | ? | ? | level ?| ?| ? | ? + +-------- --------+ + -----+| >=0.5 ?| Bacterial ? ? ?| Encouraged ? ?| ? | ?| infection ? ? ?| ? | ? | ?| likely ? | ? | Consider treatment failure ?+ +------- ---------+ -+ if levels does not decrease | >1.0 ? | Bacterial ? ? ?| Strongly ? ? ?| appropriately ? | ?| infection very | encouraged ? ?| ? | ?| likely ? | ? | ? + +-------- --------+ + -----+ Percentage of drop of Procalcitonin calculation for Discontinuation of antibiotics in high-acuity patients with suspected or confirmed sepsis in Adults >= 18 years of age. ? Procalcitonin highest{}-Procalcitonin current{}Delta Procalcitonin = x100% ? Procalcitonin current {} IMPORTANT NOTE: Procalcitonin may be elevated without bacterial infection by physiologic stress related to trauma, lassiter, chronic dialysis, metastatic cancer, surgery in the past seven days, malaria, some fungal infections, and some forms of vasculitis. The interpretation algorithm may not apply to patients with immunosuppression (equivalent of >10 mg of prednisone daily), HIV with CD4 cell count < 350 cells/mm3, active malignancy on systemic chemotherapy, solid organ transplant or hematopoietic stem cell transplantation, or hospital acquired pneumonia. Additionally, some clinical trials of procalcitonin have excluded patients with shock requiring vasopressor use, acute respiratory failure requiring mechanical ventilation, or those with known lung abscess/empyema. For further information please refer to:[email or web address] Lab Interpretation Abnormal (test code = 24929-3) [facility]22-[facility]-18 22:12:56 Test Item Value Reference Range Interpretation Comments POCT GLU (test code = 5828416099) 198 mg/dL 70-110 H Lab Interpretation (test code = Abnormal 52879-2) [facility] [id number] 20:03:27 Test Item Value Reference Range Interpretation Comments TIBC (test code = 0297243116) 268 ug/dL 250-410 % FE SAT (test code = 4579496181) 16 % 20-50 L Lab Interpretation (test code = Abnormal 97981-8) [facility] 19:54:29 Test Item Value Reference Range Interpretation Comments IRON (test code = 3769904193) 42 ug/dL 50-160 L Lab Interpretation (test code = Abnormal 73704-2) [facility] HospitalGlycosylated Hemoglobin (A1C)2022-05-18 19:08:59 Test Item Value Reference Range Interpretation Comments HGB A1C (test code = 6.6 % 4.0-5.7 H 4548-4) JOSE GUADALUPE (test code = JOSE GUADALUPE) Reference RangesNormal: <5.7%Prediabetes: 5.7 - 6.4%Diabetes: > 6.5% Lab Interpretation (test Abnormal code = 75666-0) [facility] HospitalRETICULOCYTES [id number] 18:52:04 Test Item Value Reference Range Interpretation Comments RETIC Count Automated 1.38 % 0.51-1.90 (test code = 5341888586) RETIC Absolute Count See_Comment [Autom ated message] (test code = 2569530516) The system which generated this result transmitted ref erence range: 0.0230 - 0.0950 10*6/?L. The reference range was not used to int erpret this result as normal/abnormal . IRF % (test code = 7.90 % 2.10-12.60 5075981842) RETIC-HE (test code = 34.8 pg 28.1-35.8 8716063933) Lab Interpretation (test Normal code = 04039-8) [facility]2022-05-18 17:15:11 Test Item Value Reference Range Interpretation Comments POCT GLU (test code = 8412617216) 131 mg/dL 70-110 H Lab Interpretation (test code = Abnormal 45001-3) [facility] HospitalTROPONIN [id number] 13:36:13 Test Item Value Reference Interpretation Comments Range TROPONIN I (test 0.187 ng/mL See_Comment H [Automated code = 7535042087) message] The system which generated this result transmitted reference range : <=0.034. The reference range was not used to interpret this result as normal/abnormal . JOSE GUADALUPE (test code = Reference (Normal) JOSE GUADALUPE) Range (defined by the 99th percentile reference limit): <= 0.034 ng/mL Note: Cardiac troponin begins to rise 3-4 hours after the onset of ischemia. Repeat in 4-6 hours if the sample was drawn within 3-4 hours of the onset of the symptom and found normal. Diagnosis of myocardial injury is made with acute changes in cTn concentrations with at least one serial sample above the 99th percentile upper reference limit (URL), taken together with the patient's clinical presentation. Biotin has been reported to cause a negative bias, interpret results relative to patient's use of biotin. Lab Interpretation Abnormal (test code = 98201-6) [facility] HospitalN-TERMINAL [id number] 13:33:12 Test Item Value Reference Range Interpretation Comments NT-proBNP (test code 59640 pg/mL See_Comment H [Autom ated = 5055101788) message] The system which generated this result transmitted reference range : <=450. The reference range was not used to interpret this result as normal/abnormal . JOSE GUADALUPE (test code = JOSE GUADALUPE) Biotin has been reported to cause a negative bias, interpret results relative to patient's use of biotin. Lab Interpretation Abnormal (test code = 37637-9) [facility] HospitalCOMP. METABOLIC PANEL (55129)2022-05-18 13:26:10 Test Item Value Reference Range Interpretation Comments NA (test code = 133 mmol/L 135-145 L 0256952864) K (test code = 4.6 mmol/L 3.5-5.0 1806359700) CL (test code = 102 mmol/L 98-108 7523290293) CO2 TOTAL (test code = 17 mmol/L 23-31 L 1607011754) AGAP (test code = 2-16 7114391730) BUN (test code = 47 mg/dL 7-23 H 5530653098) GLUCOSE (test code = 161 mg/dL 70-110 H 6539556353) CREATININE (test code = 4.25 mg/dL 0.50-1.04 H 7939904047) TOTAL BILI (test code = 0.5 mg/dL 0.1-1.1 9005093944) CALCIUM (test code = 7.4 mg/dL 8.6-10.6 L 2275737162) T PROTEIN (test code = 6.0 g/dL 6.3-8.2 L 9108697517) ALBUMIN (test code = 3.8 g/dL 3.5-5.0 8544349489) ALK PHOS (test code = 89 U/L 34-122 8158222974) ALTv (test code = 26 U/L 5-35 1742-6) AST(SGOT) (test code = 38 U/L 13-40 0161186886) eGFR (test code = mL/min/1.73m2 4161548855) JOSE GUADALUPE (test code = JOSE GUADALUPE) Association of Glomerular Filtration Rate (GFR) and Staging of Kidney Disease* + --+ --+ ------+| GFR (mL/min/1.73 m2) ?| With Kidney Damage ?| ?Without Kidney Damage+ --------+ --------+ +| ?>90 ?| ?Stage one ?| ? Normal ?+ ---+ ---+ -------+| ?60-89 ?| ?Stage two ?| ? Decreased GFR ? + --+ --+ ------+| ?30-59 ?| ?Stage three ?| ? Stage three ? + --+ --+ ------+| ?15-29 ?| ?Stage four ? | ? Stage four ?+ ---+ ---+ -------+| ?<15 (or dialysis) ? ?| ?Stage five ? | ? Stage five ?+ ---+ ---+ -------+ *Each stage assumes the associated GFR level has been in effect for at least three months. ?Stages 1 to 5, with or without kidney disease, indicate chronic kidney disease. Notes: Determination of stages one and two (with eGFR >59mL/min/1.73 m2) requires estimation of kidney damage for at least three months as defined by structural or functional abnormalities of the kidney, manifested by either:Pathological abnormalities or Markers of kidney damage (including abnormalities in the composition of the blood or urine or abnormalities in imaging tests). Lab Interpretation Abnormal (test code = 20266-9) [facility] WITH [id number] 13:18:53 Test Item Value Reference Range Interpretation Comments WBC (test code = See_Comment [Automated 6690-2) message] The sy stem which generated this result transmitted reference range : 4.30 - 11.10 10*3/?L. The reference range was not used to interpret this result as normal/abnormal . RBC (test code = See_Comment L [Automated 789-8) message] The sy stem which generated this result transmitted reference range : 3.93 - 5.25 10*6/?L. The reference range was not used to interpret this result as normal/abnormal . HGB (test code = 9.8 g/dL 11.6-15.0 L 718-7) HCT (test code = 30.7 % 35.7-45.2 L 4544-3) MCV (test code = 98.4 fL 80.6-95.5 H 787-2) MCH (test code = 31.4 pg 25.9-32.8 785-6) MCHC (test code = 31.9 g/dL 31.6-35.1 786-4) RDW-SD (test code = 53.5 fL 39.0-49.9 H 55099-1) RDW-CV (test code = 14.8 % 12.0-15.5 788-0) PLT (test code = See_Comment L [Automated 777-3) message] The sy stem which generated this result transmitted reference range : 166 - 358 10*3/ ?L. The reference r bernadine was not used to interpret this result as normal/abnormal . MPV (test code = 10.2 fL 9.5-12.9 06987-3) IPF % (test code = 3.1 % 1.3-7.7 Platelet count 9636517478) measured by fluorescence method. NRBC/100 WBC (test See_Comment [Automat ed code = 4261178096) message] The system which generated this result transmitted reference range : 0.0 - 10.0 /100 WBCs. The refer ence range was not u sed to interpret th is result as normal/abnormal . NRBC x10^3 (test code <0.01 See_Comment [Auto mated = 4487208570) message] The s ystem which generated this result transmitted reference range : 10*3/?L. The reference range was not used to interpret this result as normal/abnormal . GRAN MAT (NEUT) % 59.9 % (test code = 770-8) IMM GRAN % (test code 0.40 % = 0908804676) LYMPH % (test code = 28.4 % 736-9) MONO % (test code = 11.1 % 5905-5) EOS % (test code = 0.2 % 713-8) BASO % (test code = 0.0 % 706-2) GRAN MAT x10^3(ANC) 2.91 10*3/uL 1.88-7.09 (test code = 6895632246) IMM GRAN x10^3 (test <0.03 0.00-0.06 code = 5989177170) LYMPH x10^3 (test code 1.38 10*3/uL 1.32-3.29 = 731-0) MONO x10^3 (test code 0.54 10*3/uL 0.33-0.92 = 742-7) EOS x10^3 (test code = <0.03 0.03-0.39 L 711-2) BASO x10^3 (test code <0.03 0.01-0.07 = 704-7) Lab Interpretation Abnormal (test code = 34689-6) [facility] HospitalACTIVATED PARTIAL THRMPLAS [id number] 13:16:32 Test Item Value Reference Range Interpretation Comments APTT Patient (test See_Comment [Automat ed code = 3173-2) message] The system which generated this result transmitted reference range : 23 - 38 Seconds . The reference range was not used to interpr et this result as normal/abnormal . JOSE GUADALUPE (test code = JOSE GUADALUPE) The [facility] patient population mean normal value for aPTT is 30 seconds. Lab Interpretation Normal (test code = 61010-9) [facility] HospitalAC Panel 20 + Lactic [id number] 13:16:07 Test Item Value Reference Range Interpretation Comments PH (test code = 2) 7.35-7.45 L PCO2 (test code = See_Comment [Automate d 9997679241) message] The sy stem which generated this result transmitted reference range : 35 - 45 mmHg. The reference range was not used to interpret this result as normal/abnormal . PO2 (test code = See_Comment H [Automated 5616240935) message] The sy stem which generated this result transmitted reference range : 80 - 100 mmHg. The reference range was not used to interpret this result as normal/abnormal . HCO3 (test code = See_Comment L [Automate d 6460725259) message] The sy stem which generated this result transmitted reference range : 22 - 26 mEq/L. The reference range was not used to interpret this result as normal/abnormal . BE (test code = See_Comment L [Automated 6084570319) message] The sy stem which generated this result transmitted reference range : -3.0 - 3.0 mEq/ L. The reference r bernadine was not used to interpret this result as normal/abnormal . THB (test code = 10.4 g/dL 12.0-16.0 L 0847662981) %O2HB (test code = 98.3 % 94.0-99.0 0932959287) %COHB ART (test code = 0.4 % 0.0-1.5 9438926743) %METHB ART (test code = 0.3 % 0.4-1.5 L 9906384815) VOL%O2 ART (test code = 15.1 % 15.0-23.0 9496817450) NA (test code = 130 mmol/L 135-145 L 6082669261) K+ (test code = 4.1 mmol/L 3.5-5.0 4316638759) AC CA IONZ (test code = 4.10 mg/dL 4.50-5.30 L 3504875097) GLUCOSE (test code = 159 mg/dL 70-110 H 7506817009) LACTIC ACID (test code 1.26 mmol/L 0.50-2.20 = 5605040044) Lab Interpretation Abnormal (test code = 16366-0) [facility] HospitalPROTHROMBIN TIME / [id number] 13:14:31 Test Item Value Reference Range Interpretation Comments PROTIME PATIENT (test See_Comment H [Auto mated message] code = 5964-2) The system [employer] generated this result transmitted ref erence range: 12.0 - 1 4.7 Seconds. The reference range was not used to int erpret this result as normal/abnormal . INR (test code = 6301-6) Nor mal INR <1.1; Warfarin Therap eutic range 2.0 to 3. 0 or 2.5 to 3.5, dep ending upon the indica tions. Lab Interpretation (test Abnormal code = 16588-9) [facility] HospitalSARS-CoV-2 (COVID-19) RNA [Presence] in Respiratory specimen by EUGENIA with probe [id number] 22:05:47 Test Item Value Reference Range Interpretation Comments SARS-CoV-2 (COVID-19) RNA Not detected [Presence] in Respiratory specimen by EUGENIA with probe detection (test code = 13323-4) Whether patient is employed in a Unknown healthcare setting (test code = 19802-1) Whether the patient has symptoms Unknown related to condition of interest (test code = 33972-2) Whether the patient was Unknown hospitalized for condition of interest (test code = 34686-2) Whether the patient was admitted Unknown to intensive care unit (ICU) for condition of interest (test code = 70257-6) Whether patient resides in a Unknown congregate care setting (test code = 71480-9) status (test code = Unknown 85646-2) Date and time of symptom onset Unknown (test code = 48518-2) [facility] WITHOUT [id number] 20:52:21 Test Item Value Reference Range Interpretation Comments WBC (test code = 6690-2) See_Comment [A utomated message] The system [employer] generated this result transmit radames reference range : 4.30 - 11.10 10*3/?L. The reference range was not used to interpret this result as normal/abnormal . RBC (test code = 789-8) See_Comment L [Au tomated message] The system [employer] generated this result transmit radames reference range : 3.93 - 5.25 10* 6/?L. The reference r bernadine was not used to interpret this result as normal/abnormal . HGB (test code = 718-7) 7.6 g/dL 11.6-15.0 L HCT (test code = 4544-3) 24.7 % 35.7-45.2 L MCH (test code = 785-6) 29.0 pg 25.9-32.8 MCV (test code = 787-2) 94.3 fL 80.6-95.5 MCHC (test code = 786-4) 30.8 g/dL 31.6-35.1 L PLT (test code = 777-3) See_Comment [Au tomated message] The system [employer] generated this result transmit radames reference range : 166 - 358 10*3/?L. The reference range was not used to interpret this result as normal/abnormal . MPV (test code = 10.5 fL 9.5-12.9 98065-1) RDW-CV (test code = 15.1 % 12.0-15.5 788-0) RDW-SD (test code = 51.4 fL 39.0-49.9 H 11498-9) NRBC x10^3 (test code = <0.01 See_Comment [Au tomated message] 5386134510) The system [employer] generated this result transmit radames reference range : 10*3/?L. The reference range was not used to interpret this result as normal/abnormal . NRBC/100 WBC (test code See_Comment [Au tomated message] = 6134331491) The system [facility] generated this result transmit radames reference range : 0.0 - 10.0 /100 WBC s. The reference r bernadine was not used to interpret this result as normal/abnormal . IPF % (test code = 0693502723) Lab Interpretation (test Abnormal code = 64746-2) [facility]PO[facility] ([facility]ATED)2021-11-07 18:30:26 Test Item Value Reference Range Interpretation Comments POCT GLU (test code = 7238252613) 135 mg/dL 70-110 H Lab Interpretation (test code = Abnormal 30749-5) [facility]PO[facility] ([facility]ATED)2021-11-07 15:37:52 Test Item Value Reference Range Interpretation Comments POCT GLU (test code = 2614286354) 133 mg/dL 70-110 H Lab Interpretation (test code = Abnormal 60811-6) [facility] HospitalBILIRUBIN [id number] 14:43:17 Test Item Value Reference Range Interpretation Comments TOTAL BILI (test code = 5585898334) 0.3 mg/dL 0.1-1.1 Lab Interpretation (test code = Normal 33372-4) [facility] HospitalBILI UNCONJUGATED/BILI [id number] 14:43:17 Test Item Value Reference Range Interpretation Comments BILI CONJ (test code = 6751201241) 0.0 mg/dL 0.0-0.3 BILI UNCON (test code = 4996037798) 0.0 mg/dL 0.1-1.1 L Lab Interpretation (test code = Abnormal 41180-0) [facility] HospitalRETICULOCYTES [id number] 14:07:52 Test Item Value Reference Range Interpretation Comments RETIC Count Automated 3.05 % 0.51-1.90 H (test code = 5569631836) RETIC Absolute Count See_Comment [Autom ated message] (test code = 3691617356) The system which generated this result transmitted ref erence range: 0.0230 - 0.0950 10*6/?L. The reference range was not used to int erpret this result as normal/abnormal . IRF % (test code = 22.90 % 2.10-12.60 H 4525018078) RETIC-HE (test code = 33.6 pg 28.1-35.8 4810022127) Lab Interpretation (test Abnormal code = 27548-0) [facility] HospitalMAGNESIUM2021-12-24 12:01:05 Test Item Value Reference Range Interpretation Comments MAGNESIUM (test code = 1466989122) 2.2 mg/dL 1.7-2.4 Lab Interpretation (test code = Normal 52346-0) [facility] HospitalPHOSPHORUS2021-12-24 11:24:18 Test Item Value Reference Range Interpretation Comments PHOSPHORUS (test code = 4892201072) 2.5 mg/dL 2.5-5.0 Lab Interpretation (test code = Normal 26524-7) [facility] METABOLIC PANEL (NA, K, CL, CO2, GLUCOSE, BUN, CREATININE, CA)2021-11-07 11:24:17 Test Item Value Reference Range Interpretation Comments NA (test code = 133 mmol/L 135-145 L 0416431527) K (test code = 3.7 mmol/L 3.5-5.0 6769801052) CL (test code = 103 mmol/L 98-108 7137240274) CO2 TOTAL (test code = 24 mmol/L 23-31 4212950630) AGAP (test code = 2-16 5344220657) BUN (test code = 18 mg/dL 7-23 2946178077) GLUCOSE (test code = 104 mg/dL 70-110 6332716057) CREATININE (test code = 2.46 mg/dL 0.50-1.04 H 7616115453) CALCIUM (test code = 8.0 mg/dL 8.6-10.6 L 3893718860) eGFR (test code = mL/min/1.73m2 8272080278) JOSE GUADALUPE (test code = JOSE GUADALUPE) Association of Glomerular Filtration Rate (GFR) and Staging of Kidney Disease* + --+ --+ ------+| GFR (mL/min/1.73 m2) ?| With Kidney Damage ?| ?Without Kidney Damage+ --------+ --------+ +| ?>90 ?| ?Stage one ?| ? Normal ?+ ---+ ---+ -------+| ?60-89 ?| ?Stage two ?| ? Decreased GFR ? + --+ --+ ------+| ?30-59 ?| ?Stage three ?| ? Stage three ? + --+ --+ ------+| ?15-29 ?| ?Stage four ? | ? Stage four ?+ ---+ ---+ -------+| ?<15 (or dialysis) ? ?| ?Stage five ? | ? Stage five ?+ ---+ ---+ -------+ *Each stage assumes the associated GFR level has been in effect for at least three months. ?Stages 1 to 5, with or without kidney disease, indicate chronic kidney disease. Notes: Determination of stages one and two (with eGFR >59mL/min/1.73 m2) requires estimation of kidney damage for at least three months as defined by structural or functional abnormalities of the kidney, manifested by either:Pathological abnormalities or Markers of kidney damage (including abnormalities in the composition of the blood or urine or abnormalities in imaging tests). Lab Interpretation Abnormal (test code = 03206-2) [facility] WITH [id number] 10:33:53 Test Item Value Reference Range Interpretation Comments WBC (test code = See_Comment [Automated 6290-2) message] The sy stem which generated this result transmitted reference range : 4.30 - 11.10 10*3/?L. The reference range was not used to interpret this result as normal/abnormal . RBC (test code = See_Comment L [Automated 789-8) message] The sy stem which generated this result transmitted reference range : 3.93 - 5.25 10*6/?L. The reference range was not used to interpret this result as normal/abnormal . HGB (test code = 7.0 g/dL 11.6-15.0 L 718-7) HCT (test code = 22.3 % 35.7-45.2 L 4544-3) MCV (test code = 94.1 fL 80.6-95.5 787-2) MCH (test code = 29.5 pg 25.9-32.8 785-6) MCHC (test code = 31.4 g/dL 31.6-35.1 L 786-4) RDW-SD (test code = 49.3 fL 39.0-49.9 05873-0) RDW-CV (test code = 14.9 % 12.0-15.5 788-0) PLT (test code = See_Comment [Automated 777-3) message] The sy stem which generated this result transmitted reference range : 166 - 358 10*3/ ?L. The reference r bernadine was not used to interpret this result as normal/abnormal . MPV (test code = 10.5 fL 9.5-12.9 97068-7) NRBC/100 WBC (test See_Comment [Automat ed code = 4521123306) message] The system which generated this result transmitted reference range : 0.0 - 10.0 /100 WBCs. The refer ence range was not u sed to interpret th is result as normal/abnormal . NRBC x10^3 (test code <0.01 See_Comment [Auto mated = 1264361052) message] The s ystem which generated this result transmitted reference range : 10*3/?L. The reference range was not used to interpret this result as normal/abnormal . GRAN MAT (NEUT) % 71.8 % (test code = 770-8) IMM GRAN % (test code 1.10 % = 3670441094) LYMPH % (test code = 11.3 % 736-9) MONO % (test code = 12.5 % 5905-5) EOS % (test code = 3.0 % 713-8) BASO % (test code = 0.3 % 706-2) GRAN MAT x10^3(ANC) 5.21 10*3/uL 1.88-7.09 (test code = 7073824190) IMM GRAN x10^3 (test 0.08 10*3/uL 0.00-0.06 H code = 6617829552) LYMPH x10^3 (test code 0.82 10*3/uL 1.32-3.29 L = 731-0) MONO x10^3 (test code 0.91 10*3/uL 0.33-0.92 = 742-7) EOS x10^3 (test code = 0.22 10*3/uL 0.03-0.39 711-2) BASO x10^3 (test code <0.03 0.01-0.07 = 704-7) Lab Interpretation Abnormal (test code = 47671-2) [facility] GLUCOSE (AUTOMATED)2021-11-07 09:28:43 Test Item Value Reference Range Interpretation Comments POCT GLU (test code = 2776452477) 126 mg/dL 70-110 H Lab Interpretation (test code = Abnormal 27914-8) [facility] GLUCOSE (AUTOMATED)2021-11-07 05:45:39 Test Item Value Reference Range Interpretation Comments POCT GLU (test code = 6876989331) 128 mg/dL 70-110 H Lab Interpretation (test code = Abnormal 01018-6) [facility] GLUCOSE (AUTOMATED)2021-11-07 01:31:47 Test Item Value Reference Range Interpretation Comments POCT GLU (test code = 7256490706) 231 mg/dL 70-110 H Lab Interpretation (test code = Abnormal 47763-9) [facility] GLUCOSE (AUTOMATED)2021-11-06 23:12:10 Test Item Value Reference Range Interpretation Comments POCT GLU (test code = 0733037368) 214 mg/dL 70-110 H Lab Interpretation (test code = Abnormal 16666-4) [facility] GLUCOSE (AUTOMATED)2021-11-06 17:49:17 Test Item Value Reference Range Interpretation Comments POCT GLU (test code = 4029793618) 198 mg/dL 70-110 H Lab Interpretation (test code = Abnormal 62013-0) [facility] GLUCOSE (AUTOMATED)2021-11-06 14:10:06 Test Item Value Reference Range Interpretation Comments POCT GLU (test code = 2997357844) 112 mg/dL 70-110 H Lab Interpretation (test code = Abnormal 58305-9) [facility]2021-[facility]-23 12:12:11 Test Item Value Reference Range Interpretation Comments PHOSPHORUS (test code = 1492279379) 2.4 mg/dL 2.5-5.0 L Lab Interpretation (test code = Abnormal 66194-7) [facility] GLUCOSE (AUTOMATED)2021-11-06 09:49:54 Test Item Value Reference Range Interpretation Comments POCT GLU (test code = 8793323270) 104 mg/dL 70-110 Lab Interpretation (test code = Normal 24502-3) [facility] GLUCOSE (AUTOMATED)2021-11-06 06:03:28 Test Item Value Reference Range Interpretation Comments POCT GLU (test code = 0917009422) 179 mg/dL 70-110 H Lab Interpretation (test code = Abnormal 73238-2) [facility] GLUCOSE (AUTOMATED)2021-11-06 02:04:20 Test Item Value Reference Range Interpretation Comments POCT GLU (test code = 0679620833) 199 mg/dL 70-110 H Lab Interpretation (test code = Abnormal 63904-1) [facility] GLUCOSE (AUTOMATED)2021-11-05 23:23:03 Test Item Value Reference Range Interpretation Comments POCT GLU (test code = 6418749908) 183 mg/dL 70-110 H Lab Interpretation (test code = Abnormal 22362-3) [facility] GLUCOSE (AUTOMATED)2021-11-05 18:01:14 Test Item Value Reference Range Interpretation Comments POCT GLU (test code = 4834715154) 109 mg/dL 70-110 Lab Interpretation (test code = Normal 32780-5) [facility] GLUCOSE (AUTOMATED)2021-11-05 18:01:14 Test Item Value Reference Range Interpretation Comments POCT GLU (test code = 4203118949) 109 mg/dL 70-110 Lab Interpretation (test code = Normal 47829-6) [facility] GLUCOSE (AUTOMATED)2021-11-05 13:56:48 Test Item Value Reference Range Interpretation Comments POCT GLU (test code = 1058946318) 121 mg/dL 70-110 H Lab Interpretation (test code = Abnormal 97257-7) [facility]2021-12-22 12:30:29 Test Item Value Reference Range Interpretation Comments MAGNESIUM (test code = 1.6 mg/dL 1.7-2.4 L Sligh t hemolysis 6707363527) Lab Interpretation (test Abnormal code = 86559-3) [facility]2021-12-22 12:30:29 Test Item Value Reference Range Interpretation Comments MAGNESIUM (test code = 1.6 mg/dL 1.7-2.4 L Sligh t hemolysis 4912354979) Lab Interpretation (test Abnormal code = 03257-0) [facility]2021-12-22 12:15:44 Test Item Value Reference Range Interpretation Comments DIGOXIN (test code = 0.5 ng/mL 0.8-1.6 L Slight hemolysis 7146395655) JOSE GUADALUPE (test code = JOSE GUADALUPE) Arrythmias: ?1.5 - 2.0 ng/mLToxic Range: ? Greater than or equal to 2.4 ng/mL Lab Interpretation Abnormal (test code = 52510-7) [facility]2021-12-22 12:15:44 Test Item Value Reference Range Interpretation Comments DIGOXIN (test code = 0.5 ng/mL 0.8-1.6 L Slight hemolysis 0352100245) JOSE GUADALUPE (test code = JOSE GUADALUPE) Arrythmias: ?1.5 - 2.0 ng/mLToxic Range: ? Greater than or equal to 2.4 ng/mL Lab Interpretation Abnormal (test code = 67865-2) [facility] 11:55:18 Test Item Value Reference Range Interpretation Comments PHOSPHORUS (test code = 6301571853) 4.3 mg/dL 2.5-5.0 Lab Interpretation (test code = Normal 68941-9) [facility] (NA, K, CL, CO2, GLUCOSE, BUN, CREATININE, CA)2021-11-05 11:55:18 Test Item Value Reference Range Interpretation Comments NA (test code = 139 mmol/L 135-145 5856280637) K (test code = 3.9 mmol/L 3.5-5.0 Slight 0019706263) hemolysis CL (test code = 106 mmol/L 98-108 7863062104) CO2 TOTAL (test code 26 mmol/L 23-31 = 4366268457) AGAP (test code = 2-16 9355900503) BUN (test code = 39 mg/dL 7-23 H Slight 3954693980) hemolysis GLUCOSE (test code = 99 mg/dL 70-110 0125472452) CREATININE (test code 2.89 mg/dL 0.50-1.04 H = 6531866147) CALCIUM (test code = 8.1 mg/dL 8.6-10.6 L 2614449300) eGFR (test code = mL/min/1.73m2 1668697797) JOSE GUADALUPE (test code = JOSE GUADALUPE) Association of Glomerular Filtration Rate (GFR) and Staging of Kidney Disease* + -----+ --------+ +| GFR (mL/min/1.73 m2) ?| With Kidney Damage ?| ?Without Kidney Damage+ +------- +---- --+| ?>90 ?| ?Stage one ?| ? Normal ?+ ------+ ---------+--------- +| ?60-89 ?| ?Stage two ?| ? Decreased GFR ? + -----+ --------+ +| ?30-59 ?| ?Stage three ?| ? Stage three ? + -----+ --------+ +| ?15-29 ?| ?Stage four ? | ? Stage four ?+ ------+ ---------+--------- +| ?<15 (or dialysis) ? ?| ?Stage five ? | ? Stage five ?+ ------+ ---------+--------- + *Each stage assumes the associated GFR level has been in effect for at least three months. ?Stages 1 to 5, with or without kidney disease, indicate chronic kidney disease. Notes: Determination of stages one and two (with eGFR >59mL/min/1.73 m2) requires estimation of kidney damage for at least three months as defined by structural or functional abnormalities of the kidney, manifested by either:Pathological abnormalities or Markers of kidney damage (including abnormalities in the composition of the blood or urine or abnormalities in imaging tests). Lab Interpretation Abnormal (test code = 94306-5) [facility] 11:55:18 Test Item Value Reference Range Interpretation Comments PHOSPHORUS (test code = 2873848018) 4.3 mg/dL 2.5-5.0 Lab Interpretation (test code = Normal 36412-1) [facility] (NA, K, CL, CO2, GLUCOSE, BUN, CREATININE, CA)2021-11-05 11:55:18 Test Item Value Reference Range Interpretation Comments NA (test code = 139 mmol/L 135-145 5556744869) K (test code = 3.9 mmol/L 3.5-5.0 Slight 5357096653) hemolysis CL (test code = 106 mmol/L 98-108 8099875169) CO2 TOTAL (test code 26 mmol/L 23-31 = 8472624662) AGAP (test code = 2-16 8632516740) BUN (test code = 39 mg/dL 7-23 H Slight 1997817375) hemolysis GLUCOSE (test code = 99 mg/dL 70-110 1201333873) CREATININE (test code 2.89 mg/dL 0.50-1.04 H = 7621710469) CALCIUM (test code = 8.1 mg/dL 8.6-10.6 L 5736942213) eGFR (test code = mL/min/1.73m2 9039392870) JOSE GUADALUPE (test code = JOSE GUADALUPE) Association of Glomerular Filtration Rate (GFR) and Staging of Kidney Disease* + -----+ --------+ +| GFR (mL/min/1.73 m2) ?| With Kidney Damage ?| ?Without Kidney Damage+ +------- +---- --+| ?>90 ?| ?Stage one ?| ? Normal ?+ ------+ ---------+--------- +| ?60-89 ?| ?Stage two ?| ? Decreased GFR ? + -----+ --------+ +| ?30-59 ?| ?Stage three ?| ? Stage three ? + -----+ --------+ +| ?15-29 ?| ?Stage four ? | ? Stage four ?+ ------+ ---------+--------- +| ?<15 (or dialysis) ? ?| ?Stage five ? | ? Stage five ?+ ------+ ---------+--------- + *Each stage assumes the associated GFR level has been in effect for at least three months. ?Stages 1 to 5, with or without kidney disease, indicate chronic kidney disease. Notes: Determination of stages one and two (with eGFR >59mL/min/1.73 m2) requires estimation of kidney damage for at least three months as defined by structural or functional abnormalities of the kidney, manifested by either:Pathological abnormalities or Markers of kidney damage (including abnormalities in the composition of the blood or urine or abnormalities in imaging tests). Lab Interpretation Abnormal (test code = 68966-1) [facility] WITH [id number] 10:44:09 Test Item Value Reference Range Interpretation Comments WBC (test code = See_Comment [Automated 5851-2) message] The sy stem which generated this result transmitted reference range : 4.30 - 11.10 10*3/?L. The reference range was not used to interpret this result as normal/abnormal . RBC (test code = See_Comment L [Automated 922-8) message] The sy stem which generated this result transmitted reference range : 3.93 - 5.25 10*6/?L. The reference range was not used to interpret this result as normal/abnormal . HGB (test code = 7.3 g/dL 11.6-15.0 L 718-7) HCT (test code = 23.2 % 35.7-45.2 L 4544-3) MCV (test code = 92.8 fL 80.6-95.5 787-2) MCH (test code = 29.2 pg 25.9-32.8 785-6) MCHC (test code = 31.5 g/dL 31.6-35.1 L 786-4) RDW-SD (test code = 49.2 fL 39.0-49.9 65948-8) RDW-CV (test code = 14.7 % 12.0-15.5 788-0) PLT (test code = See_Comment [Automated 777-3) message] The sy stem which generated this result transmitted reference range : 166 - 358 10*3/ ?L. The reference r bernadine was not used to interpret this result as normal/abnormal . MPV (test code = 11.0 fL 9.5-12.9 28056-0) NRBC/100 WBC (test See_Comment [Automat ed code = 6501394159) message] The system which generated this result transmitted reference range : 0.0 - 10.0 /100 WBCs. The refer ence range was not u sed to interpret th is result as normal/abnormal . NRBC x10^3 (test code <0.01 See_Comment [Auto mated = 0385534580) message] The s ystem which generated this result transmitted reference range : 10*3/?L. The reference range was not used to interpret this result as normal/abnormal . GRAN MAT (NEUT) % 78.7 % (test code = 770-8) IMM GRAN % (test code 1.00 % = 6562318050) LYMPH % (test code = 8.2 % 736-9) MONO % (test code = 9.1 % 5905-5) EOS % (test code = 2.8 % 713-8) BASO % (test code = 0.2 % 706-2) GRAN MAT x10^3(ANC) 7.80 10*3/uL 1.88-7.09 H (test code = 2750243336) IMM GRAN x10^3 (test 0.10 10*3/uL 0.00-0.06 H code = 0003128487) LYMPH x10^3 (test code 0.81 10*3/uL 1.32-3.29 L = 731-0) MONO x10^3 (test code 0.90 10*3/uL 0.33-0.92 = 742-7) EOS x10^3 (test code = 0.28 10*3/uL 0.03-0.39 711-2) BASO x10^3 (test code <0.03 0.01-0.07 = 704-7) Lab Interpretation Abnormal (test code = 34844-7) [facility] WITH [id number] 10:44:09 Test Item Value Reference Range Interpretation Comments WBC (test code = See_Comment [Automated 6690-2) message] The sy stem which generated this result transmitted reference range : 4.30 - 11.10 10*3/?L. The reference range was not used to interpret this result as normal/abnormal . RBC (test code = See_Comment L [Automated 789-8) message] The sy stem which generated this result transmitted reference range : 3.93 - 5.25 10*6/?L. The reference range was not used to interpret this result as normal/abnormal . HGB (test code = 7.3 g/dL 11.6-15.0 L 718-7) HCT (test code = 23.2 % 35.7-45.2 L 4544-3) MCV (test code = 92.8 fL 80.6-95.5 787-2) MCH (test code = 29.2 pg 25.9-32.8 785-6) MCHC (test code = 31.5 g/dL 31.6-35.1 L 786-4) RDW-SD (test code = 49.2 fL 39.0-49.9 59240-7) RDW-CV (test code = 14.7 % 12.0-15.5 788-0) PLT (test code = See_Comment [Automated 777-3) message] The sy stem which generated this result transmitted reference range : 166 - 358 10*3/ ?L. The reference r bernadine was not used to interpret this result as normal/abnormal . MPV (test code = 11.0 fL 9.5-12.9 82418-3) NRBC/100 WBC (test See_Comment [Automat ed code = 4929156399) message] The system which generated this result transmitted reference range : 0.0 - 10.0 /100 WBCs. The refer ence range was not u sed to interpret th is result as normal/abnormal . NRBC x10^3 (test code <0.01 See_Comment [Auto mated = 5295273157) message] The s ystem which generated this result transmitted reference range : 10*3/?L. The reference range was not used to interpret this result as normal/abnormal . GRAN MAT (NEUT) % 78.7 % (test code = 770-8) IMM GRAN % (test code 1.00 % = 4501909111) LYMPH % (test code = 8.2 % 736-9) MONO % (test code = 9.1 % 5905-5) EOS % (test code = 2.8 % 713-8) BASO % (test code = 0.2 % 706-2) GRAN MAT x10^3(ANC) 7.80 10*3/uL 1.88-7.09 H (test code = 4095369402) IMM GRAN x10^3 (test 0.10 10*3/uL 0.00-0.06 H code = 7853271066) LYMPH x10^3 (test code 0.81 10*3/uL 1.32-3.29 L = 731-0) MONO x10^3 (test code 0.90 10*3/uL 0.33-0.92 = 742-7) EOS x10^3 (test code = 0.28 10*3/uL 0.03-0.39 711-2) BASO x10^3 (test code <0.03 0.01-0.07 = 704-7) Lab Interpretation Abnormal (test code = 53996-8) [facility] GLUCOSE (AUTOMATED)2021-11-05 10:09:35 Test Item Value Reference Range Interpretation Comments POCT GLU (test code = 3348088172) 124 mg/dL 70-110 H Lab Interpretation (test code = Abnormal 63497-4) [facility] GLUCOSE (AUTOMATED)2021-11-05 06:04:34 Test Item Value Reference Range Interpretation Comments POCT GLU (test code = 1884776553) 160 mg/dL 70-110 H Lab Interpretation (test code = Abnormal 21906-4) [facility] GLUCOSE (AUTOMATED)2021-11-05 03:14:40 Test Item Value Reference Range Interpretation Comments POCT GLU (test code = 4978613072) 255 mg/dL 70-110 H Lab Interpretation (test code = Abnormal 65586-2) [facility] GLUCOSE (AUTOMATED)2021-11-04 23:56:51 Test Item Value Reference Range Interpretation Comments POCT GLU (test code = 5611641955) 177 mg/dL 70-110 H Lab Interpretation (test code = Abnormal 86704-2) [facility] B SURFACE [id number] 21:22:23 Test Item Value Reference Range Interpretation Comments HBsAB (test code = Negative 1741851761) HBsAb mIU/mL Semi-Quantitative (test code = 8385872557) JOSE GUADALUPE (test code = Interpretation: JOSE GUADALUPE) ?Hepatitis B Surface Antibody ? Negative - Patient is considered to be not immune to infection with HBV. ? ? Positive - Anti-HBs detected at greater than or equal to 12 mIU/mL. ?Patient is considered to be immune to infection with HBV. ? [facility] IGG[facility]2021-11-04 21:22:23 Test Item Value Reference Range Interpretation Comments HBC (test code = 4631089457) Negative HBC Semi-Quantitative (test code = 4295758550) [facility] B SURFACE [id number] 21:22:23 Test Item Value Reference Range Interpretation Comments HBsAB (test code = Negative 8679205338) HBsAb mIU/mL Semi-Quantitative (test code = 3778133911) JOSE GUADALUPE (test code = Interpretation: JOSE GUADALUPE) ?Hepatitis B Surface Antibody ? Negative - Patient is considered to be not immune to infection with HBV. ? ? Positive - Anti-HBs detected at greater than or equal to 12 mIU/mL. ?Patient is considered to be immune to infection with HBV. ? [facility] (IGM & IGG)2021-11-04 21:22:23 Test Item Value Reference Range Interpretation Comments HBC (test code = 1824402846) Negative HBC Semi-Quantitative (test code = 5435819712) [facility] SURFACE [id number] 21:04:40 Test Item Value Reference Range Interpretation Comments HBsAg Semi-Quantitative (test code = Negative Negative 5195-3) [facility] [id number] 21:04:40 Test Item Value Reference Range Interpretation Comments HBsAg Semi-Quantitative (test code = Negative Negative 5195-3) [facility] GLUCOSE (AUTOMATED)2021-11-04 18:26:02 Test Item Value Reference Range Interpretation Comments POCT GLU (test code = 4108212551) 190 mg/dL 70-110 H Lab Interpretation (test code = Abnormal 37359-2) [facility] GLUCOSE (AUTOMATED)2021-11-04 10:22:23 Test Item Value Reference Range Interpretation Comments POCT GLU (test code = 0594586213) 129 mg/dL 70-110 H Lab Interpretation (test code = Abnormal 91986-6) [facility]21[facility] 10:17:00 Test Item Value Reference Range Interpretation Comments PHOSPHORUS (test code = 3751462060) 6.2 mg/dL 2.5-5.0 H Lab Interpretation (test code = Abnormal 90447-4) [facility] GLUCOSE (AUTOMATED)2021-11-04 06:14:25 Test Item Value Reference Range Interpretation Comments POCT GLU (test code = 3367213520) 154 mg/dL 70-110 H Lab Interpretation (test code = Abnormal 49944-9) [facility] GLUCOSE (AUTOMATED)2021-11-04 01:35:11 Test Item Value Reference Range Interpretation Comments POCT GLU (test code = 6679052213) 225 mg/dL 70-110 H Lab Interpretation (test code = Abnormal 87643-1) [facility] GLUCOSE (AUTOMATED)2021-11-04 00:00:04 Test Item Value Reference Range Interpretation Comments POCT GLU (test code = 6368602691) 221 mg/dL 70-110 H Lab Interpretation (test code = Abnormal 81637-9) [facility] GLUCOSE (AUTOMATED)2021-11-03 19:51:58 Test Item Value Reference Range Interpretation Comments POCT GLU (test code = 2222804784) 139 mg/dL 70-110 H Lab Interpretation (test code = Abnormal 92567-8) [facility]2021-11-03 14:36:57 Test Item Value Reference Range Interpretation Comments POCT GLU (test code = 6566182428) 138 mg/dL 70-110 H Lab Interpretation (test code = Abnormal 49738-5) [facility]-[id number] 13:28:56 Test Item Value Reference Interpretation Comments Range D-DIMER (test code = See_Comment H [Autom ated 3698665969) message] The system which generated this result transmitted reference range : <0.50 ?g/mL (FEU). The reference range was not used to interpret this result as normal/abnormal . JOSE GUADALUPE (test code = This test may be JOSE GUADALUPE) used in conjunction with a clinical pretest probability (PTP) assessment model to exclude venous thromboembolism (VTE) in patients suspected of deep venous thrombosis (DVT) and pulmonary embolism (PE) A D-Dimer value less than 0.50 ?g/ml (FEU) has a negative predicative value of 96 to 100% (95% CI)and 97 to 100% (95% CI) as an aid in the diagnosis of deep vein thrombosis (DVT) and pulmonary embolism when there is low or moderate pretest probability of PE or DVT. D-Dimer values are expressed in initial fibrinogen equivalent units (FEU)" The assay results should be used with other information, including the clinical context, in forming a diagnosis. Lab Interpretation Abnormal (test code = 38521-6) [facility]-[id number] 13:28:56 Test Item Value Reference Interpretation Comments Range D-DIMER (test code = See_Comment H [Autom ated 9777642937) message] The system which generated this result transmitted reference range : <0.50 ?g/mL (FEU). The reference range was not used to interpret this result as normal/abnormal . JOSE GUADALUPE (test code = This test may be JOSE GUADALUPE) used in conjunction with a clinical pretest probability (PTP) assessment model to exclude venous thromboembolism (VTE) in patients suspected of deep venous thrombosis (DVT) and pulmonary embolism (PE) A D-Dimer value less than 0.50 ?g/ml (FEU) has a negative predicative value of 96 to 100% (95% CI)and 97 to 100% (95% CI) as an aid in the diagnosis of deep vein thrombosis (DVT) and pulmonary embolism when there is low or moderate pretest probability of PE or DVT. D-Dimer values are expressed in initial fibrinogen equivalent units (FEU)" The assay results should be used with other information, including the clinical context, in forming a diagnosis. Lab Interpretation Abnormal (test code = 87029-0) [facility] / [id number] 11:32:45 Test Item Value Reference Range Interpretation Comments PROTIME PATIENT (test See_Comment [Auto mated message] code = 5964-2) The system [employer] generated this result transmitted ref erence range: 10.1 - 1 2.6 Seconds. The re ference range was not u sed to interpret this result as normal/abnor mal. INR (test code = 6301-6) Nor mal INR <1.1; Warfarin Therap eutic range 2.0 to 3. 0 or 2.5 to 3.5, dep ending upon the indica tions. Lab Interpretation (test Normal code = 35347-1) [facility]PROT[facility] / [id number] 11:32:45 Test Item Value Reference Range Interpretation Comments PROTIME PATIENT (test See_Comment [Auto mated message] code = 5964-2) The system [employer] generated this result transmitted ref erence range: 10.1 - 1 2.6 Seconds. The re ference range was not u sed to interpret this result as normal/abnor mal. INR (test code = 6301-6) Nor mal INR <1.1; Warfarin Therap eutic range 2.0 to 3. 0 or 2.5 to 3.5, dep ending upon the indica tions. Lab Interpretation (test Normal code = 91472-6) [facility] GLUCOSE (AUTOMATED)2021-11-03 09:26:12 Test Item Value Reference Range Interpretation Comments POCT GLU (test code = 1662204884) 127 mg/dL 70-110 H Lab Interpretation (test code = Abnormal 11126-7) [facility] GLUCOSE (AUTOMATED)2021-11-03 05:47:03 Test Item Value Reference Range Interpretation Comments POCT GLU (test code = 3821339318) 215 mg/dL 70-110 H Lab Interpretation (test code = Abnormal 19696-1) [facility] GLUCOSE (AUTOMATED)2021-11-03 02:53:53 Test Item Value Reference Range Interpretation Comments POCT GLU (test code = 3911255916) 159 mg/dL 70-110 H Lab Interpretation (test code = Abnormal 19692-7) [facility] / [id number] 00:18:49 Test Item Value Reference Range Interpretation Comments PROTIME PATIENT (test See_Comment [Auto mated message] code = 5964-2) The system [employer] generated this result transmitted ref erence range: 10.1 - 1 2.6 Seconds. The re ference range was not u sed to interpret this result as normal/abnor mal. INR (test code = 6301-6) Nor mal INR <1.1; Warfarin Therap eutic range 2.0 to 3. 0 or 2.5 to 3.5, dep ending upon the indica tions. Lab Interpretation (test Normal code = 59674-4) [facility] (NA, K, CL, CO2, GLUCOSE, BUN, CREATININE, CA)2021-11-02 23:59:28 Test Item Value Reference Range Interpretation Comments NA (test code = 144 mmol/L 135-145 4960307607) K (test code = 4.1 mmol/L 3.5-5.0 2149248021) CL (test code = 112 mmol/L 98-108 H 0040985088) CO2 TOTAL (test code = 27 mmol/L 23-31 4418053559) AGAP (test code = 2-16 1793085412) BUN (test code = 59 mg/dL 7-23 H 0456773386) GLUCOSE (test code = 147 mg/dL 70-110 H 8447744088) CREATININE (test code = 4.27 mg/dL 0.50-1.04 H 9082498291) CALCIUM (test code = 7.5 mg/dL 8.6-10.6 L 6485317446) eGFR (test code = mL/min/1.73m2 5144047926) JOSE GUADALUPE (test code = JOSE GUADALUPE) Association of Glomerular Filtration Rate (GFR) and Staging of Kidney Disease* + --+ --+ ------+| GFR (mL/min/1.73 m2) ?| With Kidney Damage ?| ?Without Kidney Damage+ --------+ --------+ +| ?>90 ?| ?Stage one ?| ? Normal ?+ ---+ ---+ -------+| ?60-89 ?| ?Stage two ?| ? Decreased GFR ? + --+ --+ ------+| ?30-59 ?| ?Stage three ?| ? Stage three ? + --+ --+ ------+| ?15-29 ?| ?Stage four ? | ? Stage four ?+ ---+ ---+ -------+| ?<15 (or dialysis) ? ?| ?Stage five ? | ? Stage five ?+ ---+ ---+ -------+ *Each stage assumes the associated GFR level has been in effect for at least three months. ?Stages 1 to 5, with or without kidney disease, indicate chronic kidney disease. Notes: Determination of stages one and two (with eGFR >59mL/min/1.73 m2) requires estimation of kidney damage for at least three months as defined by structural or functional abnormalities of the kidney, manifested by either:Pathological abnormalities or Markers of kidney damage (including abnormalities in the composition of the blood or urine or abnormalities in imaging tests). Lab Interpretation Abnormal (test code = 14563-7) [facility] WITH [id number] 23:38:45 Test Item Value Reference Range Interpretation Comments WBC (test code = See_Comment [Automated 9290-2) message] The sy stem which generated this result transmitted reference range : 4.30 - 11.10 10*3/?L. The reference range was not used to interpret this result as normal/abnormal . RBC (test code = See_Comment L [Automated 219-8) message] The sy stem which generated this result transmitted reference range : 3.93 - 5.25 10*6/?L. The reference range was not used to interpret this result as normal/abnormal . HGB (test code = 7.9 g/dL 11.6-15.0 L 718-7) HCT (test code = 26.2 % 35.7-45.2 L 4544-3) MCV (test code = 96.3 fL 80.6-95.5 H 787-2) MCH (test code = 29.0 pg 25.9-32.8 785-6) MCHC (test code = 30.2 g/dL 31.6-35.1 L 786-4) RDW-SD (test code = 53.2 fL 39.0-49.9 H 95148-1) RDW-CV (test code = 15.3 % 12.0-15.5 788-0) PLT (test code = See_Comment L [Automated 777-3) message] The sy stem which generated this result transmitted reference range : 166 - 358 10*3/ ?L. The reference r bernadine was not used to interpret this result as normal/abnormal . MPV (test code = 10.4 fL 9.5-12.9 96864-9) NRBC/100 WBC (test See_Comment [Automat ed code = 6539554862) message] The system which generated this result transmitted reference range : 0.0 - 10.0 /100 WBCs. The refer ence range was not u sed to interpret th is result as normal/abnormal . NRBC x10^3 (test code <0.01 See_Comment [Auto mated = 2212682656) message] The s ystem which generated this result transmitted reference range : 10*3/?L. The reference range was not used to interpret this result as normal/abnormal . GRAN MAT (NEUT) % 82.3 % (test code = 770-8) IMM GRAN % (test code 1.30 % = 5550090914) LYMPH % (test code = 6.3 % 736-9) MONO % (test code = 7.4 % 5905-5) EOS % (test code = 2.5 % 713-8) BASO % (test code = 0.2 % 706-2) GRAN MAT x10^3(ANC) 7.42 10*3/uL 1.88-7.09 H (test code = 3167048997) IMM GRAN x10^3 (test 0.12 10*3/uL 0.00-0.06 H code = 3772721257) LYMPH x10^3 (test code 0.57 10*3/uL 1.32-3.29 L = 731-0) MONO x10^3 (test code 0.67 10*3/uL 0.33-0.92 = 742-7) EOS x10^3 (test code = 0.23 10*3/uL 0.03-0.39 711-2) BASO x10^3 (test code <0.03 0.01-0.07 = 704-7) Lab Interpretation Abnormal (test code = 44391-6) [facility] GLUCOSE (AUTOMATED)2021-11-02 23:11:23 Test Item Value Reference Range Interpretation Comments POCT GLU (test code = 3645424228) 152 mg/dL 70-110 H Lab Interpretation (test code = Abnormal 37372-6) [facility] GLUCOSE (AUTOMATED)2021-11-02 18:17:05 Test Item Value Reference Range Interpretation Comments POCT GLU (test code = 1394564168) 201 mg/dL 70-110 H Lab Interpretation (test code = Abnormal 89315-6) [facility] [id number] 17:32:34 Test Item Value Reference Range Interpretation Comments IRON (test code = 7606052316) 99 ug/dL 50-160 TIBC (test code = 9593310734) 220 ug/dL 250-410 L % FE SAT (test code = 9507411901) 45 % 20-50 Lab Interpretation (test code = Abnormal 15543-1) [facility] [id number] 17:32:34 Test Item Value Reference Range Interpretation Comments IRON (test code = 2653907551) 99 ug/dL 50-160 TIBC (test code = 0821701382) 220 ug/dL 250-410 L % FE SAT (test code = 1475626556) 45 % 20-50 Lab Interpretation (test code = Abnormal 46051-7) [id number] 15:24:33 Test Item Value Reference Interpretation Comments Range D-DIMER (test code = See_Comment H [Autom ated 0608234595) message] The system which generated this result transmitted reference range : <0.50 ?g/mL (FEU). The reference range was not used to interpret this result as normal/abnormal . JOSE GUADALUPE (test code = This test may be JOSE GUADALUPE) used in conjunction with a clinical pretest probability (PTP) assessment model to exclude venous thromboembolism (VTE) in patients suspected of deep venous thrombosis (DVT) and pulmonary embolism (PE) A D-Dimer value less than 0.50 ?g/ml (FEU) has a negative predicative value of 96 to 100% (95% CI)and 97 to 100% (95% CI) as an aid in the diagnosis of deep vein thrombosis (DVT) and pulmonary embolism when there is low or moderate pretest probability of PE or DVT. D-Dimer values are expressed in initial fibrinogen equivalent units (FEU)" The assay results should be used with other information, including the clinical context, in forming a diagnosis. Lab Interpretation Abnormal (test code = 68082-1) [facility] THRM[facility] [id number] 14:50:13 Test Item Value Reference Range Interpretation Comments APTT Patient (test code See_Comment H [Au tomated message] = 3173-2) The system [employer] generated this result transmitted ref erence range: 26 - 36 Seconds. The reference range was not used to int erpret this result as normal/abnormal . Lab Interpretation (test Abnormal code = 59748-1) [facility] [id number] 14:50:13 Test Item Value Reference Range Interpretation Comments APTT Patient (test code See_Comment H [Au tomated message] = 3173-2) The system [employer] generated this result transmitted ref erence range: 26 - 36 Seconds. The reference range was not used to int erpret this result as normal/abnormal . Lab Interpretation (test Abnormal code = 22217-8) [facility]2021-11-02 14:38:16 Test Item Value Reference Range Interpretation Comments POCT GLU (test code = 8507977302) 128 mg/dL 70-110 H Lab Interpretation (test code = Abnormal 42323-1) [facility]2021-[facility] 13:23:30 Test Item Value Reference Range Interpretation Comments MAGNESIUM (test code = 0680204577) 2.0 mg/dL 1.7-2.4 Lab Interpretation (test code = Normal 77629-2) [facility]BAS[facility] METABOLIC PANEL (NA, K, CL, CO2, GLUCOSE, BUN, CREATININE, CA)2021-11-02 13:23:29 Test Item Value Reference Range Interpretation Comments NA (test code = 147 mmol/L 135-145 H 2922293285) K (test code = 3.9 mmol/L 3.5-5.0 8416924025) CL (test code = 114 mmol/L 98-108 H 1155409670) CO2 TOTAL (test code = 22 mmol/L 23-31 L 5260274385) AGAP (test code = 2-16 8333024167) BUN (test code = 61 mg/dL 7-23 H 0131561363) GLUCOSE (test code = 107 mg/dL 70-110 5446641446) CREATININE (test code = 4.24 mg/dL 0.50-1.04 H 4218103358) CALCIUM (test code = 7.3 mg/dL 8.6-10.6 L 2568214489) eGFR (test code = mL/min/1.73m2 0989948834) JOSE GUADALUPE (test code = JOSE GUADALUPE) Association of Glomerular Filtration Rate (GFR) and Staging of Kidney Disease* + --+ --+ ------+| GFR (mL/min/1.73 m2) ?| With Kidney Damage ?| ?Without Kidney Damage+ --------+ --------+ +| ?>90 ?| ?Stage one ?| ? Normal ?+ ---+ ---+ -------+| ?60-89 ?| ?Stage two ?| ? Decreased GFR ? + --+ --+ ------+| ?30-59 ?| ?Stage three ?| ? Stage three ? + --+ --+ ------+| ?15-29 ?| ?Stage four ? | ? Stage four ?+ ---+ ---+ -------+| ?<15 (or dialysis) ? ?| ?Stage five ? | ? Stage five ?+ ---+ ---+ -------+ *Each stage assumes the associated GFR level has been in effect for at least three months. ?Stages 1 to 5, with or without kidney disease, indicate chronic kidney disease. Notes: Determination of stages one and two (with eGFR >59mL/min/1.73 m2) requires estimation of kidney damage for at least three months as defined by structural or functional abnormalities of the kidney, manifested by either:Pathological abnormalities or Markers of kidney damage (including abnormalities in the composition of the blood or urine or abnormalities in imaging tests). Lab Interpretation Abnormal (test code = 09389-3) [facility]PH[facility]2021-12-19 13:23:29 Test Item Value Reference Range Interpretation Comments PHOSPHORUS (test code = 0216557950) 6.1 mg/dL 2.5-5.0 H Lab Interpretation (test code = Abnormal 94921-3) [facility] Hospital[facility] WITH [id number] 10:24:54 Test Item Value Reference Range Interpretation Comments WBC (test code = See_Comment [Automated 6690-2) message] The sy stem which generated this result transmitted reference range : 4.30 - 11.10 10*3/?L. The reference range was not used to interpret this result as normal/abnormal . RBC (test code = See_Comment L [Automated 789-8) message] The sy stem which generated this result transmitted reference range : 3.93 - 5.25 10*6/?L. The reference range was not used to interpret this result as normal/abnormal . HGB (test code = 7.7 g/dL 11.6-15.0 L 718-7) HCT (test code = 25.2 % 35.7-45.2 L 4544-3) MCV (test code = 96.2 fL 80.6-95.5 H 787-2) MCH (test code = 29.4 pg 25.9-32.8 785-6) MCHC (test code = 30.6 g/dL 31.6-35.1 L 786-4) RDW-SD (test code = 54.3 fL 39.0-49.9 H 47113-3) RDW-CV (test code = 15.7 % 12.0-15.5 H 788-0) PLT (test code = See_Comment L [Automated 777-3) message] The sy stem which generated this result transmitted reference range : 166 - 358 10*3/ ?L. The reference r bernadine was not used to interpret this result as normal/abnormal . MPV (test code = 11.1 fL 9.5-12.9 22925-6) NRBC/100 WBC (test See_Comment [Automat ed code = 0181453039) message] The system which generated this result transmitted reference range : 0.0 - 10.0 /100 WBCs. The refer ence range was not u sed to interpret th is result as normal/abnormal . NRBC x10^3 (test code <0.01 See_Comment [Auto mated = 9196993848) message] The s ystem which generated this result transmitted reference range : 10*3/?L. The reference range was not used to interpret this result as normal/abnormal . GRAN MAT (NEUT) % 77.3 % (test code = 770-8) IMM GRAN % (test code 2.00 % = 7993975602) LYMPH % (test code = 7.6 % 736-9) MONO % (test code = 9.7 % 5905-5) EOS % (test code = 3.2 % 713-8) BASO % (test code = 0.2 % 706-2) GRAN MAT x10^3(ANC) 7.54 10*3/uL 1.88-7.09 H (test code = 9844323472) IMM GRAN x10^3 (test 0.19 10*3/uL 0.00-0.06 H code = 4064125012) LYMPH x10^3 (test code 0.74 10*3/uL 1.32-3.29 L = 731-0) MONO x10^3 (test code 0.94 10*3/uL 0.33-0.92 H = 742-7) EOS x10^3 (test code = 0.31 10*3/uL 0.03-0.39 711-2) BASO x10^3 (test code <0.03 0.01-0.07 = 704-7) Lab Interpretation Abnormal (test code = 45157-5) [facility]2021-11-02 10:22:43 Test Item Value Reference Range Interpretation Comments POCT GLU (test code = 0138965270) 112 mg/dL 70-110 H Lab Interpretation (test code = Abnormal 90313-7) [facility] HospitalaPTT (for use with Heparin Drip)2021-11-02 06:23:26 Test Item Value Reference Range Interpretation Comments APTT Patient (test code >150 See_Comment HH [Au tomated message] = 4463-2) The system ulike h generated this result transmitted ref erence range: 26 - 36 Seconds. The reference range was not used to int erpret this result as normal/abnormal . Lab Interpretation (test Abnormal code = 94292-3) [facility] GLUCOSE (AUTOMATED)2021-11-02 06:01:53 Test Item Value Reference Range Interpretation Comments POCT GLU (test code = 1350535382) 196 mg/dL 70-110 H Lab Interpretation (test code = Abnormal 93412-8) [facility] GLUCOSE (AUTOMATED)2021-11-02 02:16:12 Test Item Value Reference Range Interpretation Comments POCT GLU (test code = 9889078315) 216 mg/dL 70-110 H Lab Interpretation (test code = Abnormal 86389-7) [facility] HospitalTHYROID STIMULATING [id number] 21:41:15 Test Item Value Reference Range Interpretation Comments TSH (test code = See_Comment [Automated message] 4225570106) The system [employer]rabbit generated this result transmitted ref erence range: 0.45 - 4 .70 mIU/L. The refe rence range was not u sed to interpret this result as normal/abnor mal. Lab Interpretation (test Normal code = 24790-9) [facility] HospitalTHY[facility]ID STIMULATING [id number] 21:41:15 Test Item Value Reference Range Interpretation Comments TSH (test code = See_Comment [Automated message] 0253072373) The system [employer] generated this result transmitted ref erence range: 0.45 - 4 .70 mIU/L. The refe rence range was not u sed to interpret this result as normal/abnor mal. Lab Interpretation (test Normal code = 24907-1) [facility] GLUCOSE (AUTOMATED)2021-11-01 21:30:06 Test Item Value Reference Range Interpretation Comments POCT GLU (test code = 4455293008) 237 mg/dL 70-110 H Lab Interpretation (test code = Abnormal 43455-9) [facility] GLUCOSE (AUTOMATED)2021-11-01 17:37:24 Test Item Value Reference Range Interpretation Comments POCT GLU (test code = 1028123020) 249 mg/dL 70-110 H Lab Interpretation (test code = Abnormal 23308-3) [facility]. METABOLIC PANEL (30776)2021-11-01 15:01:05 Test Item Value Reference Range Interpretation Comments NA (test code = 145 mmol/L 135-145 1515506877) K (test code = 4.3 mmol/L 3.5-5.0 1625499334) CL (test code = 113 mmol/L 98-108 H 8565834760) CO2 TOTAL (test code = 24 mmol/L 23-31 2572995698) AGAP (test code = 2-16 1312926274) BUN (test code = 63 mg/dL 7-23 H 7552906823) GLUCOSE (test code = 176 mg/dL 70-110 H 1650566647) CREATININE (test code = 4.83 mg/dL 0.50-1.04 H 1822460671) TOTAL BILI (test code = 0.4 mg/dL 0.1-1.2 5595595173) CALCIUM (test code = 7.9 mg/dL 8.6-10.6 L 6679879504) T PROTEIN (test code = 4.8 g/dL 6.3-8.2 L 7020278933) ALBUMIN (test code = 2.6 g/dL 3.5-5.0 L 6500101939) ALK PHOS (test code = 77 U/L 34-122 0151196796) ALTv (test code = 11 U/L 5-35 1742-6) AST(SGOT) (test code = 11 U/L 13-40 L 8046301453) eGFR (test code = mL/min/1.73m2 9431670877) JOSE GUADALUPE (test code = JOSE GUADALUPE) Association of Glomerular Filtration Rate (GFR) and Staging of Kidney Disease* + --+ --+ ------+| GFR (mL/min/1.73 m2) ?| With Kidney Damage ?| ?Without Kidney Damage+ --------+ --------+ +| ?>90 ?| ?Stage one ?| ? Normal ?+ ---+ ---+ -------+| ?60-89 ?| ?Stage two ?| ? Decreased GFR ? + --+ --+ ------+| ?30-59 ?| ?Stage three ?| ? Stage three ? + --+ --+ ------+| ?15-29 ?| ?Stage four ? | ? Stage four ?+ ---+ ---+ -------+| ?<15 (or dialysis) ? ?| ?Stage five ? | ? Stage five ?+ ---+ ---+ -------+ *Each stage assumes the associated GFR level has been in effect for at least three months. ?Stages 1 to 5, with or without kidney disease, indicate chronic kidney disease. Notes: Determination of stages one and two (with eGFR >59mL/min/1.73 m2) requires estimation of kidney damage for at least three months as defined by structural or functional abnormalities of the kidney, manifested by either:Pathological abnormalities or Markers of kidney damage (including abnormalities in the composition of the blood or urine or abnormalities in imaging tests). Lab Interpretation Abnormal (test code = 19317-2) [facility]2021-[facility]-18 15:01:05 Test Item Value Reference Range Interpretation Comments MAGNESIUM (test code = 0054892474) 2.3 mg/dL 1.7-2.4 Lab Interpretation (test code = Normal 54506-8) [facility] HospitalCOMP. METABOLIC PANEL (30778)2021-11-01 15:01:05 Test Item Value Reference Range Interpretation Comments NA (test code = 145 mmol/L 135-145 9480551051) K (test code = 4.3 mmol/L 3.5-5.0 5973064658) CL (test code = 113 mmol/L 98-108 H 6836724649) CO2 TOTAL (test code = 24 mmol/L 23-31 1222127595) AGAP (test code = 2-16 6265237344) BUN (test code = 63 mg/dL 7-23 H 8980300755) GLUCOSE (test code = 176 mg/dL 70-110 H 8346104779) CREATININE (test code = 4.83 mg/dL 0.50-1.04 H 9833722660) TOTAL BILI (test code = 0.4 mg/dL 0.1-1.4 6624220587) CALCIUM (test code = 7.9 mg/dL 8.6-10.6 L 4008543692) T PROTEIN (test code = 4.8 g/dL 6.3-8.2 L 0854550655) ALBUMIN (test code = 2.6 g/dL 3.5-5.0 L 3180296316) ALK PHOS (test code = 77 U/L 34-122 3584804419) ALTv (test code = 11 U/L 5-35 1742-6) AST(SGOT) (test code = 11 U/L 13-40 L 4147381288) eGFR (test code = mL/min/1.73m2 3541938081) JOSE GUADALUPE (test code = JOSE GUADALUPE) Association of Glomerular Filtration Rate (GFR) and Staging of Kidney Disease* + --+ --+ ------+| GFR (mL/min/1.73 m2) ?| With Kidney Damage ?| ?Without Kidney Damage+ --------+ --------+ +| ?>90 ?| ?Stage one ?| ? Normal ?+ ---+ ---+ -------+| ?60-89 ?| ?Stage two ?| ? Decreased GFR ? + --+ --+ ------+| ?30-59 ?| ?Stage three ?| ? Stage three ? + --+ --+ ------+| ?15-29 ?| ?Stage four ? | ? Stage four ?+ ---+ ---+ -------+| ?<15 (or dialysis) ? ?| ?Stage five ? | ? Stage five ?+ ---+ ---+ -------+ *Each stage assumes the associated GFR level has been in effect for at least three months. ?Stages 1 to 5, with or without kidney disease, indicate chronic kidney disease. Notes: Determination of stages one and two (with eGFR >59mL/min/1.73 m2) requires estimation of kidney damage for at least three months as defined by structural or functional abnormalities of the kidney, manifested by either:Pathological abnormalities or Markers of kidney damage (including abnormalities in the composition of the blood or urine or abnormalities in imaging tests). Lab Interpretation Abnormal (test code = 07228-3) [facility]2021-11-01 13:33:22 Test Item Value Reference Range Interpretation Comments POCT GLU (test code = 4240771328) 169 mg/dL 70-110 H Lab Interpretation (test code = Abnormal 77466-2) [facility]2021-[facility]-18 11:49:10 Test Item Value Reference Range Interpretation Comments PHOSPHORUS (test code = 8404459557) 7.7 mg/dL 2.5-5.0 H Lab Interpretation (test code = Abnormal 28556-8) [facility] GLUCOSE (AUTOMATED)2021-11-01 10:21:31 Test Item Value Reference Range Interpretation Comments POCT GLU (test code = 0561489450) 191 mg/dL 70-110 H Lab Interpretation (test code = Abnormal 58624-2) [facility] GLUCOSE (AUTOMATED)2021-11-01 06:01:25 Test Item Value Reference Range Interpretation Comments POCT GLU (test code = 7819474730) 246 mg/dL 70-110 H Lab Interpretation (test code = Abnormal 34114-3) [facility] GLUCOSE (AUTOMATED)2021-11-01 01:45:27 Test Item Value Reference Range Interpretation Comments POCT GLU (test code = 9328774216) 209 mg/dL 70-110 H Lab Interpretation (test code = Abnormal 35891-8) [facility] GLUCOSE (AUTOMATED)2021-10-31 19:06:59 Test Item Value Reference Range Interpretation Comments POCT GLU (test code = 6259979481) 207 mg/dL 70-110 H Lab Interpretation (test code = Abnormal 96570-5) [facility] GLUCOSE (AUTOMATED)2021-10-31 14:41:29 Test Item Value Reference Range Interpretation Comments POCT GLU (test code = 9624198270) 202 mg/dL 70-110 H Lab Interpretation (test code = Abnormal 45048-2) [facility] METABOLIC PANEL (NA, K, CL, CO2, GLUCOSE, BUN, CREATININE, CA)2021-10-31 11:41:25 Test Item Value Reference Range Interpretation Comments NA (test code = 148 mmol/L 135-145 H 4385435762) K (test code = 5.0 mmol/L 3.5-5.0 Slight 3942773522) hemolysis CL (test code = 113 mmol/L 98-108 H 1945467281) CO2 TOTAL (test code 13 mmol/L 23-31 L = 8939588988) AGAP (test code = 2-16 H 9169430560) BUN (test code = 52 mg/dL 7-23 H Slight 9394146155) hemolysis GLUCOSE (test code = 169 mg/dL 70-110 H 0617119739) CREATININE (test code 4.30 mg/dL 0.50-1.04 H = 9539371871) CALCIUM (test code = 7.8 mg/dL 8.6-10.6 L 1110059605) eGFR (test code = mL/min/1.73m2 5740854389) JOSE GUADALUPE (test code = JOSE GUADALUPE) Association of Glomerular Filtration Rate (GFR) and Staging of Kidney Disease* + -----+ --------+ +| GFR (mL/min/1.73 m2) ?| With Kidney Damage ?| ?Without Kidney Damage+ +------- +---- --+| ?>90 ?| ?Stage one ?| ? Normal ?+ ------+ ---------+--------- +| ?60-89 ?| ?Stage two ?| ? Decreased GFR ? + -----+ --------+ +| ?30-59 ?| ?Stage three ?| ? Stage three ? + -----+ --------+ +| ?15-29 ?| ?Stage four ? | ? Stage four ?+ ------+ ---------+--------- +| ?<15 (or dialysis) ? ?| ?Stage five ? | ? Stage five ?+ ------+ ---------+--------- + *Each stage assumes the associated GFR level has been in effect for at least three months. ?Stages 1 to 5, with or without kidney disease, indicate chronic kidney disease. Notes: Determination of stages one and two (with eGFR >59mL/min/1.73 m2) requires estimation of kidney damage for at least three months as defined by structural or functional abnormalities of the kidney, manifested by either:Pathological abnormalities or Markers of kidney damage (including abnormalities in the composition of the blood or urine or abnormalities in imaging tests). Lab Interpretation Abnormal (test code = 21472-3) [facility] WITH [id number] 10:49:40 Test Item Value Reference Range Interpretation Comments WBC (test code = See_Comment [Automated 3488-2) message] The sy stem which generated this result transmitted reference range : 4.30 - 11.10 10*3/?L. The reference range was not used to interpret this result as normal/abnormal . RBC (test code = See_Comment L [Automated 299-8) message] The sy stem which generated this result transmitted reference range : 3.93 - 5.25 10*6/?L. The reference range was not used to interpret this result as normal/abnormal . HGB (test code = 8.9 g/dL 11.6-15.0 L 718-7) HCT (test code = 29.6 % 35.7-45.2 L 4544-3) MCV (test code = 97.0 fL 80.6-95.5 H 787-2) MCH (test code = 29.2 pg 25.9-32.8 785-6) MCHC (test code = 30.1 g/dL 31.6-35.1 L 786-4) RDW-SD (test code = 57.1 fL 39.0-49.9 H 22897-2) RDW-CV (test code = 16.0 % 12.0-15.5 H 788-0) PLT (test code = See_Comment L [Automated 777-3) message] The sy stem which generated this result transmitted reference range : 166 - 358 10*3/ ?L. The reference r bernadine was not used to interpret this result as normal/abnormal . MPV (test code = 11.0 fL 9.5-12.9 68978-9) NRBC/100 WBC (test See_Comment [Automat ed code = 1515729762) message] The system which generated this result transmitted reference range : 0.0 - 10.0 /100 WBCs. The refer ence range was not u sed to interpret th is result as normal/abnormal . NRBC x10^3 (test code See_Comment [Auto mated = 5023165921) message] The s ystem which generated this result transmitted reference range : 10*3/?L. The reference range was not used to interpret this result as normal/abnormal . GRAN MAT (NEUT) % 87.0 % (test code = 770-8) IMM GRAN % (test code 0.70 % = 4228990913) LYMPH % (test code = 5.9 % 736-9) MONO % (test code = 5.8 % 5905-5) EOS % (test code = 0.4 % 713-8) BASO % (test code = 0.2 % 706-2) GRAN MAT x10^3(ANC) 8.45 10*3/uL 1.88-7.09 H (test code = 6962166089) IMM GRAN x10^3 (test 0.07 10*3/uL 0.00-0.06 H code = 6544349442) LYMPH x10^3 (test code 0.57 10*3/uL 1.32-3.29 L = 731-0) MONO x10^3 (test code 0.56 10*3/uL 0.33-0.92 = 742-7) EOS x10^3 (test code = 0.04 10*3/uL 0.03-0.39 711-2) BASO x10^3 (test code <0.03 0.01-0.07 = 704-7) Lab Interpretation Abnormal (test code = 82177-3) [facility] GLUCOSE (AUTOMATED)2021-10-31 10:34:19 Test Item Value Reference Range Interpretation Comments POCT GLU (test code = 2514890245) 213 mg/dL 70-110 H Lab Interpretation (test code = Abnormal 39457-6) [facility] GLUCOSE (AUTOMATED)2021-10-31 06:10:01 Test Item Value Reference Range Interpretation Comments POCT GLU (test code = 4552739104) 159 mg/dL 70-110 H Lab Interpretation (test code = Abnormal 78474-3) [facility] GLUCOSE (AUTOMATED)2021-10-31 03:14:09 Test Item Value Reference Range Interpretation Comments POCT GLU (test code = 5517399158) 124 mg/dL 70-110 H Lab Interpretation (test code = Abnormal 78548-2) [facility] [id number] 20:01:33 Test Item Value Reference Range Interpretation Comments Blood Culture-Aerobic No organisms No growth Previo us (test code = 23945-4) isolated prelim inary verified result was Culture In Progress on 10/25/2021 at 1701 CSTPreviou s preliminary verified result was No growth a t 24 hours on 10/26/2021 at 1401 CSTPreviou s preliminary verified result was No growth a t 48 hours on 10/27/2021 at 1401 CSTPreviou s preliminary verified result was No growth a t 72 hours on 10/28/2021 at 1401 [employer] Blood No organisms No growth Previous Culture-Anaerobic isolated preliminar y (test code = 42799-1) verifi ed result was Culture In Progress on 10/25/2021 at 1701 CSTPreviou s preliminary verified result was No growth a t 24 hours on 10/26/2021 at 1401 CSTPreviou s preliminary verified result was No growth a t 48 hours on 10/27/2021 at 1401 CSTPreviou s preliminary verified result was No growth a t 72 hours on 10/28/2021 at 1401 [employer] Lab Interpretation Normal (test code = 64883-8) [facility] CULTURE [id number] 20:01:33 Test Item Value Reference Range Interpretation Comments Blood Culture-Aerobic No organisms No growth Previo us (test code = 22639-2) isolated prelim inary verified result was Culture In Progress on 10/25/2021 at 1701 CSTPreviou s preliminary verified result was No growth a t 24 hours on 10/26/2021 at 1401 CSTPreviou s preliminary verified result was No growth a t 48 hours on 10/27/2021 at 1401 CSTPreviou s preliminary verified result was No growth a t 72 hours on 10/28/2021 at 1401 [employer] Blood No organisms No growth Previous Culture-Anaerobic isolated preliminar y (test code = 03384-2) verifi ed result was Culture In Progress on 10/25/2021 at 1701 CSTPreviou s preliminary verified result was No growth a t 24 hours on 10/26/2021 at 1401 CSTPreviou s preliminary verified result was No growth a t 48 hours on 10/27/2021 at 1401 CSTPreviou s preliminary verified result was No growth a t 72 hours on 10/28/2021 at 1401 [employer] Lab Interpretation Normal (test code = 74209-2) [facility] CULTURE [id number] 20:01:33 Test Item Value Reference Range Interpretation Comments Blood Culture-Aerobic No organisms No growth Previo us (test code = 26515-0) isolated prelim inary verified result was Culture In Progress on 10/25/2021 at 1701 CSTPreviou s preliminary verified result was No growth a t 24 hours on 10/26/2021 at 1401 CSTPreviou s preliminary verified result was No growth a t 48 hours on 10/27/2021 at 1401 CSTPreviou s preliminary verified result was No growth a t 72 hours on 10/28/2021 at 1401 [employer] Blood No organisms No growth Previous Culture-Anaerobic isolated preliminar y (test code = 40903-4) verifi ed result was Culture In Progress on 10/25/2021 at 1701 CSTPreviou s preliminary verified result was No growth a t 24 hours on 10/26/2021 at 1401 CSTPreviou s preliminary verified result was No growth a t 48 hours on 10/27/2021 at 1401 CSTPreviou s preliminary verified result was No growth a t 72 hours on 10/28/2021 at 1401 [employer] Lab Interpretation Normal (test code = 08765-2) [facility] WITHOUT [id number] 17:52:27 Test Item Value Reference Range Interpretation Comments WBC (test code = 6690-2) See_Comment [A utomated message] The system [employer] generated this result transmit radames reference range : 4.30 - 11.10 10*3/?L. The reference range was not used to interpret this result as normal/abnormal . RBC (test code = 789-8) See_Comment L [Au tomated message] The system [employer] generated this result transmit radames reference range : 3.93 - 5.25 10* 6/?L. The reference r bernadine was not used to interpret this result as normal/abnormal . HGB (test code = 718-7) 8.4 g/dL 11.6-15.0 L HCT (test code = 4544-3) 27.5 % 35.7-45.2 L MCH (test code = 785-6) 29.2 pg 25.9-32.8 MCV (test code = 787-2) 95.5 fL 80.6-95.5 MCHC (test code = 786-4) 30.5 g/dL 31.6-35.1 L PLT (test code = 777-3) See_Comment L [Au tomated message] The system [employer] generated this result transmit radames reference range : 166 - 358 10*3/?L. The reference range was not used to interpret this result as normal/abnormal . MPV (test code = 10.9 fL 9.5-12.9 00175-1) RDW-CV (test code = 15.8 % 12.0-15.5 H 788-0) RDW-SD (test code = 55.3 fL 39.0-49.9 H 14485-5) NRBC x10^3 (test code = <0.01 See_Comment [Au tomated message] [id number]) The system [employer] generated this result transmit radames reference range : 10*3/?L. The reference range was not used to interpret this result as normal/abnormal . NRBC/100 WBC (test code See_Comment [Au tomated message] = 4508388881) The system [facility] generated this result transmit radames reference range : 0.0 - 10.0 /100 WBC s. The reference r bernadine was not used to interpret this result as normal/abnormal . IPF % (test code = 6215840973) Lab Interpretation (test Abnormal code = 68504-4) [facility] WITHOUT [id number] 17:52:27 Test Item Value Reference Range Interpretation Comments WBC (test code = 6690-2) See_Comment [A utomated message] The system [employer] generated this result transmit radames reference range : 4.30 - 11.10 10*3/?L. The reference range was not used to interpret this result as normal/abnormal . RBC (test code = 789-8) See_Comment L [Au tomated message] The system [employer] generated this result transmit radames reference range : 3.93 - 5.25 10* 6/?L. The reference r bernadine was not used to interpret this result as normal/abnormal . HGB (test code = 718-7) 8.4 g/dL 11.6-15.0 L HCT (test code = 4544-3) 27.5 % 35.7-45.2 L MCH (test code = 785-6) 29.2 pg 25.9-32.8 MCV (test code = 787-2) 95.5 fL 80.6-95.5 MCHC (test code = 786-4) 30.5 g/dL 31.6-35.1 L PLT (test code = 777-3) See_Comment L [Au tomated message] The system [employer] generated this result transmit radames reference range : 166 - 358 10*3/?L. The reference range was not used to interpret this result as normal/abnormal . MPV (test code = 10.9 fL 9.5-12.9 69464-1) RDW-CV (test code = 15.8 % 12.0-15.5 H 788-0) RDW-SD (test code = 55.3 fL 39.0-49.9 H 55621-1) NRBC x10^3 (test code = <0.01 See_Comment [Au tomated message] 7624915487) The system [employer] generated this result transmit radames reference range : 10*3/?L. The reference range was not used to interpret this result as normal/abnormal . NRBC/100 WBC (test code See_Comment [Au tomated message] = 4179983329) The system [employer] generated this result transmit radames reference range : 0.0 - 10.0 /100 WBC s. The reference r bernadine was not used to interpret this result as normal/abnormal . IPF % (test code = 6756244582) Lab Interpretation (test Abnormal code = 44253-5) [facility] GLUCOSE (AUTOMATED)2021-10-30 17:44:35 Test Item Value Reference Range Interpretation Comments POCT GLU (test code = 4574793389) 120 mg/dL 70-110 H Lab Interpretation (test code = Abnormal 94951-1) [facility] GLUCOSE (AUTOMATED)2021-10-30 13:45:26 Test Item Value Reference Range Interpretation Comments POCT GLU (test code = 8882835457) 128 mg/dL 70-110 H Lab Interpretation (test code = Abnormal 42715-9) [facility] METABOLIC PANEL (NA, K, CL, CO2, GLUCOSE, BUN, CREATININE, CA)2021-10-30 11:01:33 Test Item Value Reference Range Interpretation Comments NA (test code = 145 mmol/L 135-145 2402940218) K (test code = 4.0 mmol/L 3.5-5.0 0683121123) CL (test code = 114 mmol/L 98-108 H 5195192113) CO2 TOTAL (test code = 18 mmol/L 23-31 L 9911642504) AGAP (test code = 2-16 1853380786) BUN (test code = 46 mg/dL 7-23 H 6847096702) GLUCOSE (test code = 118 mg/dL 70-110 H 4357621339) CREATININE (test code = 3.89 mg/dL 0.50-1.04 H 2183335542) CALCIUM (test code = 7.5 mg/dL 8.6-10.6 L 3282865135) eGFR (test code = mL/min/1.73m2 0492593916) JOSE GUADALUPE (test code = JOSE GUADALUPE) Association of Glomerular Filtration Rate (GFR) and Staging of Kidney Disease* + --+ --+ ------+| GFR (mL/min/1.73 m2) ?| With Kidney Damage ?| ?Without Kidney Damage+ --------+ --------+ +| ?>90 ?| ?Stage one ?| ? Normal ?+ ---+ ---+ -------+| ?60-89 ?| ?Stage two ?| ? Decreased GFR ? + --+ --+ ------+| ?30-59 ?| ?Stage three ?| ? Stage three ? + --+ --+ ------+| ?15-29 ?| ?Stage four ? | ? Stage four ?+ ---+ ---+ -------+| ?<15 (or dialysis) ? ?| ?Stage five ? | ? Stage five ?+ ---+ ---+ -------+ *Each stage assumes the associated GFR level has been in effect for at least three months. ?Stages 1 to 5, with or without kidney disease, indicate chronic kidney disease. Notes: Determination of stages one and two (with eGFR >59mL/min/1.73 m2) requires estimation of kidney damage for at least three months as defined by structural or functional abnormalities of the kidney, manifested by either:Pathological abnormalities or Markers of kidney damage (including abnormalities in the composition of the blood or urine or abnormalities in imaging tests). Lab Interpretation Abnormal (test code = 75263-7) [facility]:01:33 Test Item Value Reference Range Interpretation Comments MAGNESIUM (test code = 0907136648) 2.4 mg/dL 1.7-2.4 Lab Interpretation (test code = Normal 05056-3) [facility] 11:01:33 Test Item Value Reference Range Interpretation Comments PHOSPHORUS (test code = 3681742232) 6.9 mg/dL 2.5-5.0 H Lab Interpretation (test code = Abnormal 24236-3) [facility] WITHOUT [id number] 10:31:10 Test Item Value Reference Range Interpretation Comments WBC (test code = 6690-2) See_Comment [A utomated message] The system [employer] generated this result transmit radames reference range : 4.30 - 11.10 10*3/?L. The reference range was not used to interpret this result as normal/abnormal . RBC (test code = 789-8) See_Comment L [Au tomated message] The system [employer] generated this result transmit radames reference range : 3.93 - 5.25 10* 6/?L. The reference r bernadine was not used to interpret this result as normal/abnormal . HGB (test code = 718-7) 8.2 g/dL 11.6-15.0 L HCT (test code = 4544-3) 25.8 % 35.7-45.2 L MCH (test code = 785-6) 29.2 pg 25.9-32.8 MCV (test code = 787-2) 91.8 fL 80.6-95.5 MCHC (test code = 786-4) 31.8 g/dL 31.6-35.1 PLT (test code = 777-3) See_Comment L [Au tomated message] The system [employer] generated this result transmit radames reference range : 166 - 358 10*3/?L. The reference range was not used to interpret this result as normal/abnormal . MPV (test code = 9.6 fL 9.5-12.9 68341-2) RDW-CV (test code = 15.6 % 12.0-15.5 H 788-0) RDW-SD (test code = 52.2 fL 39.0-49.9 H 05395-3) NRBC x10^3 (test code = See_Comment [Au tomated message] 6999709643) The system [employer] generated this result transmit radames reference range : 10*3/?L. The reference range was not used to interpret this result as normal/abnormal . NRBC/100 WBC (test code See_Comment [Au tomated message] = 1699852346) The system [employer] generated this result transmit radames reference range : 0.0 - 10.0 /100 WBC s. The reference r bernadine was not used to interpret this result as normal/abnormal . IPF % (test code = 6225864470) Lab Interpretation (test Abnormal code = 63243-3) [facility] WITHOUT [id number] 02:08:27 Test Item Value Reference Range Interpretation Comments WBC (test code = 6690-2) See_Comment [A utomated message] The system [employer] generated this result transmit radames reference range : 4.30 - 11.10 10*3/?L. The reference range was not used to interpret this result as normal/abnormal . RBC (test code = 789-8) See_Comment L [Au tomated message] The system [employer] generated this result transmit radames reference range : 3.93 - 5.25 10* 6/?L. The reference r bernadine was not used to interpret this result as normal/abnormal . HGB (test code = 718-7) 7.9 g/dL 11.6-15.0 L HCT (test code = 4544-3) 24.7 % 35.7-45.2 L MCH (test code = 785-6) 29.2 pg 25.9-32.8 MCV (test code = 787-2) 91.1 fL 80.6-95.5 MCHC (test code = 786-4) 32.0 g/dL 31.6-35.1 PLT (test code = 777-3) See_Comment L [Au tomated message] The system [employer] generated this result transmit radames reference range : 166 - 358 10*3/?L. The reference range was not used to interpret this result as normal/abnormal . MPV (test code = 10.3 fL 9.5-12.9 23860-7) RDW-CV (test code = 15.6 % 12.0-15.5 H 788-0) RDW-SD (test code = 51.7 fL 39.0-49.9 H 25832-2) NRBC x10^3 (test code = See_Comment [Au tomated message] 5520910367) The system [employer] generated this result transmit radames reference range : 10*3/?L. The reference range was not used to interpret this result as normal/abnormal . NRBC/100 WBC (test code See_Comment [Au tomated message] = 7495045785) The system [employer] generated this result transmit radames reference range : 0.0 - 10.0 /100 WBC s. The reference r bernadine was not used to interpret this result as normal/abnormal . IPF % (test code = 2556745008) Lab Interpretation (test Abnormal code = 14827-4) [facility]21-10-30 01:59:24 Test Item Value Reference Range Interpretation Comments POCT GLU (test code = 3600172912) 135 mg/dL 70-110 H Lab Interpretation (test code = Abnormal 08855-7) [facility] METABOLIC PANEL (NA, K, CL, CO2, GLUCOSE, BUN, CREATININE, CA)2021-10-29 22:55:57 Test Item Value Reference Range Interpretation Comments NA (test code = 146 mmol/L 135-145 H 5018206826) K (test code = 3.8 mmol/L 3.5-5.0 5988090897) CL (test code = 111 mmol/L 98-108 H 3638163453) CO2 TOTAL (test code = 24 mmol/L 23-31 8299884140) AGAP (test code = 2-16 6578468347) BUN (test code = 48 mg/dL 7-23 H 4941902949) GLUCOSE (test code = 128 mg/dL 70-110 H 5794632476) CREATININE (test code = 3.68 mg/dL 0.50-1.04 H 3288126344) CALCIUM (test code = 7.2 mg/dL 8.6-10.6 L 2935572765) eGFR (test code = mL/min/1.73m2 7786768340) JOSE GUADALUPE (test code = JOSE GUADALUPE) Association of Glomerular Filtration Rate (GFR) and Staging of Kidney Disease* + --+ --+ ------+| GFR (mL/min/1.73 m2) ?| With Kidney Damage ?| ?Without Kidney Damage+ --------+ --------+ +| ?>90 ?| ?Stage one ?| ? Normal ?+ ---+ ---+ -------+| ?60-89 ?| ?Stage two ?| ? Decreased GFR ? + --+ --+ ------+| ?30-59 ?| ?Stage three ?| ? Stage three ? + --+ --+ ------+| ?15-29 ?| ?Stage four ? | ? Stage four ?+ ---+ ---+ -------+| ?<15 (or dialysis) ? ?| ?Stage five ? | ? Stage five ?+ ---+ ---+ -------+ *Each stage assumes the associated GFR level has been in effect for at least three months. ?Stages 1 to 5, with or without kidney disease, indicate chronic kidney disease. Notes: Determination of stages one and two (with eGFR >59mL/min/1.73 m2) requires estimation of kidney damage for at least three months as defined by structural or functional abnormalities of the kidney, manifested by either:Pathological abnormalities or Markers of kidney damage (including abnormalities in the composition of the blood or urine or abnormalities in imaging tests). Lab Interpretation Abnormal (test code = 61245-6) [facility] 22:55:57 Test Item Value Reference Range Interpretation Comments MAGNESIUM (test code = 9898305121) 2.6 mg/dL 1.7-2.4 H Lab Interpretation (test code = Abnormal 03958-2) [facility]2021-10-29 21:47:25 Test Item Value Reference Range Interpretation Comments POCT GLU (test code = 1979534294) 139 mg/dL 70-110 H Lab Interpretation (test code = Abnormal 25463-3) [facility] WITHOUT [id number] 19:28:32 Test Item Value Reference Range Interpretation Comments WBC (test code = 6690-2) See_Comment [A utomated message] The system [employer] generated this result transmit radames reference range : 4.30 - 11.10 10*3/?L. The reference range was not used to interpret this result as normal/abnormal . RBC (test code = 789-8) See_Comment L [Au tomated message] The system [employer] generated this result transmit radames reference range : 3.93 - 5.25 10* 6/?L. The reference r bernadine was not used to interpret this result as normal/abnormal . HGB (test code = 718-7) 7.7 g/dL 11.6-15.0 L HCT (test code = 4544-3) 24.0 % 35.7-45.2 L MCH (test code = 785-6) 28.9 pg 25.9-32.8 MCV (test code = 787-2) 90.2 fL 80.6-95.5 MCHC (test code = 786-4) 32.1 g/dL 31.6-35.1 PLT (test code = 777-3) See_Comment L [Au tomated message] The system [employer] generated this result transmit radames reference range : 166 - 358 10*3/?L. The reference range was not used to interpret this result as normal/abnormal . MPV (test code = 10.7 fL 9.5-12.9 44957-5) RDW-CV (test code = 15.3 % 12.0-15.5 788-0) RDW-SD (test code = 50.5 fL 39.0-49.9 H 23794-4) NRBC x10^3 (test code = <0.01 See_Comment [Au tomated message] 6775471449) The system [facility] generated this result transmit radames reference range : 10*3/?L. The reference range was not used to interpret this result as normal/abnormal . NRBC/100 WBC (test code See_Comment [Au tomated message] = 3849048783) The system [facility] generated this result transmit radames reference range : 0.0 - 10.0 /100 WBC s. The reference r bernadine was not used to interpret this result as normal/abnormal . IPF % (test code = 9766052569) Lab Interpretation (test Abnormal code = 22710-8) [facility] GLUCOSE (AUTOMATED)2021-10-29 17:44:35 Test Item Value Reference Range Interpretation Comments POCT GLU (test code = 7357775611) 135 mg/dL 70-110 H Lab Interpretation (test code = Abnormal 90013-2) [facility] GLUCOSE (AUTOMATED)2021-10-29 16:00:05 Test Item Value Reference Range Interpretation Comments POCT GLU (test code = 6838636067) 128 mg/dL 70-110 H Lab Interpretation (test code = Abnormal 13365-1) [facility]2021-10-29 13:41:46 Test Item Value Reference Range Interpretation Comments POCT GLU (test code = 1786072163) 123 mg/dL 70-110 H Lab Interpretation (test code = Abnormal 84786-2) [facility] METABOLIC PANEL (NA, K, CL, CO2, GLUCOSE, BUN, CREATININE, CA)2021-10-29 11:52:01 Test Item Value Reference Range Interpretation Comments NA (test code = 143 mmol/L 135-145 0708906170) K (test code = 3.0 mmol/L 3.5-5.0 L 9679834616) CL (test code = 113 mmol/L 98-108 H 6961476368) CO2 TOTAL (test code = 24 mmol/L 23-31 3573232233) AGAP (test code = 2-16 2014112849) BUN (test code = 46 mg/dL 7-23 H 6200701749) GLUCOSE (test code = 113 mg/dL 70-110 H 4262664315) CREATININE (test code = 3.45 mg/dL 0.50-1.04 H 2200811520) CALCIUM (test code = 6.9 mg/dL 8.6-10.6 L 4487517952) eGFR (test code = mL/min/1.73m2 1784449880) JOSE GUADALUPE (test code = JOSE GUADALUPE) Association of Glomerular Filtration Rate (GFR) and Staging of Kidney Disease* + --+ --+ ------+| GFR (mL/min/1.73 m2) ?| With Kidney Damage ?| ?Without Kidney Damage+ --------+ --------+ +| ?>90 ?| ?Stage one ?| ? Normal ?+ ---+ ---+ -------+| ?60-89 ?| ?Stage two ?| ? Decreased GFR ? + --+ --+ ------+| ?30-59 ?| ?Stage three ?| ? Stage three ? + --+ --+ ------+| ?15-29 ?| ?Stage four ? | ? Stage four ?+ ---+ ---+ -------+| ?<15 (or dialysis) ? ?| ?Stage five ? | ? Stage five ?+ ---+ ---+ -------+ *Each stage assumes the associated GFR level has been in effect for at least three months. ?Stages 1 to 5, with or without kidney disease, indicate chronic kidney disease. Notes: Determination of stages one and two (with eGFR >59mL/min/1.73 m2) requires estimation of kidney damage for at least three months as defined by structural or functional abnormalities of the kidney, manifested by either:Pathological abnormalities or Markers of kidney damage (including abnormalities in the composition of the blood or urine or abnormalities in imaging tests). Lab Interpretation Abnormal (test code = 12672-6) [facility] 11:52:01 Test Item Value Reference Range Interpretation Comments MAGNESIUM (test code = 5451070914) 1.6 mg/dL 1.7-2.4 L Lab Interpretation (test code = Abnormal 53558-8) [facility] 11:52:01 Test Item Value Reference Range Interpretation Comments PHOSPHORUS (test code = 6387875299) 4.9 mg/dL 2.5-5.0 Lab Interpretation (test code = Normal 87959-1) [facility] WITH [id number] 10:51:13 Test Item Value Reference Range Interpretation Comments WBC (test code = See_Comment [Automated 6690-2) message] The sy stem which generated this result transmitted reference range : 4.30 - 11.10 10*3/?L. The reference range was not used to interpret this result as normal/abnormal . RBC (test code = See_Comment L [Automated 789-8) message] The sy stem which generated this result transmitted reference range : 3.93 - 5.25 10*6/?L. The reference range was not used to interpret this result as normal/abnormal . HGB (test code = 7.1 g/dL 11.6-15.0 L 718-7) HCT (test code = 21.9 % 35.7-45.2 L 4544-3) MCV (test code = 89.4 fL 80.6-95.5 787-2) MCH (test code = 29.0 pg 25.9-32.8 785-6) MCHC (test code = 32.4 g/dL 31.6-35.1 786-4) RDW-SD (test code = 50.4 fL 39.0-49.9 H 85352-4) RDW-CV (test code = 15.4 % 12.0-15.5 788-0) PLT (test code = See_Comment L [Automated 777-3) message] The sy stem which generated this result transmitted reference range : 166 - 358 10*3/ ?L. The reference r bernadine was not used to interpret this result as normal/abnormal . MPV (test code = 10.0 fL 9.5-12.9 29220-6) NRBC/100 WBC (test See_Comment [Automat ed code = 1477276690) message] The system which generated this result transmitted reference range : 0.0 - 10.0 /100 WBCs. The refer ence range was not u sed to interpret th is result as normal/abnormal . NRBC x10^3 (test code <0.01 See_Comment [Auto mated = 3629818084) message] The s ystem which generated this result transmitted reference range : 10*3/?L. The reference range was not used to interpret this result as normal/abnormal . GRAN MAT (NEUT) % 70.2 % (test code = 770-8) IMM GRAN % (test code 0.50 % = 2646244766) LYMPH % (test code = 13.8 % 736-9) MONO % (test code = 13.1 % 5905-5) EOS % (test code = 1.9 % 713-8) BASO % (test code = 0.5 % 706-2) GRAN MAT x10^3(ANC) 4.03 10*3/uL 1.88-7.09 (test code = 9799507975) IMM GRAN x10^3 (test 0.03 10*3/uL 0.00-0.06 code = 5036190174) LYMPH x10^3 (test code 0.79 10*3/uL 1.32-3.29 L = 731-0) MONO x10^3 (test code 0.75 10*3/uL 0.33-0.92 = 742-7) EOS x10^3 (test code = 0.11 10*3/uL 0.03-0.39 711-2) BASO x10^3 (test code 0.03 10*3/uL 0.01-0.07 = 704-7) Lab Interpretation Abnormal (test code = 13662-1) [facility] + LACTIC [id number] 10:18:53 Test Item Value Reference Range Interpretation Comments PH (test code = 7.32-7.42 5547229875) PCO2 LORA (test code = See_Comment L [Auto mated 2000344487) message] The sy stem which generated this result transmitted reference range : 41 - 51 mmHg. The reference range was not used to interpret this result as normal/abnormal . PO2 LORA (test code = See_Comment HH [Autom ated 0488869731) message] The sy stem which generated this result transmitted reference range : 25 - 40 mmHg. The reference range was not used to interpret this result as normal/abnormal . HCO3 LORA (test code = See_Comment L [Auto mated 6298183673) message] The sy stem which generated this result transmitted reference range : 24 - 28 mEq/L. The reference range was not used to interpret this result as normal/abnormal . AC VBE(BEAKER) (test mEq/L code = 6632503241) THB LORA (test code = 9.3 g/dL 12.0-16.0 L 7898320866) %O2HB LORA (test code = 97.5 % 52.0-63.0 H 3161624875) %COHB LORA (test code = 0.3 % 0.0-1.5 8387783228) %METHB LORA (test code = 0.0 % 0.4-1.5 L 2356459923) VOL%O2 LORA (test code = 12.9 % 6.0-12.0 H 4832334705) NA (test code = 142 mmol/L 135-145 7175458661) K+ (test code = 3.0 mmol/L 3.5-5.0 L 0024894998) AC CA IONZ (test code = 4.10 mg/dL 4.50-5.30 L 8534391772) GLUCOSE (test code = 111 mg/dL 70-110 H 8092835814) LACTIC ACID (test code 0.77 mmol/L 0.50-2.20 = 5304849118) Lab Interpretation Abnormal (test code = 61389-9) [facility] L[facility] [id number] 10:18:53 Test Item Value Reference Range Interpretation Comments PH (test code = 7.32-7.42 2460211060) PCO2 LORA (test code = See_Comment L [Auto mated 6553620896) message] The sy stem which generated this result transmitted reference range : 41 - 51 mmHg. The reference range was not used to interpret this result as normal/abnormal . PO2 LORA (test code = See_Comment HH [Autom ated 4938133792) message] The sy stem which generated this result transmitted reference range : 25 - 40 mmHg. The reference range was not used to interpret this result as normal/abnormal . HCO3 LORA (test code = See_Comment L [Auto mated 5157568150) message] The sy stem which generated this result transmitted reference range : 24 - 28 mEq/L. The reference range was not used to interpret this result as normal/abnormal . AC VBE(BEAKER) (test mEq/L code = 6102542213) THB LORA (test code = 9.3 g/dL 12.0-16.0 L 7423942838) %O2HB LORA (test code = 97.5 % 52.0-63.0 H 4068834681) %COHB LORA (test code = 0.3 % 0.0-1.5 7982940451) %METHB LORA (test code = 0.0 % 0.4-1.5 L 6733882222) VOL%O2 LORA (test code = 12.9 % 6.0-12.0 H 8965080663) NA (test code = 142 mmol/L 135-145 3230849212) K+ (test code = 3.0 mmol/L 3.5-5.0 L 0087941167) AC CA IONZ (test code = 4.10 mg/dL 4.50-5.30 L 3364455910) GLUCOSE (test code = 111 mg/dL 70-110 H 0164613649) LACTIC ACID (test code 0.77 mmol/L 0.50-2.20 = 6233927044) Lab Interpretation Abnormal (test code = 36523-7) [facility] GLUCOSE (AUTOMATED)2021-10-29 10:18:27 Test Item Value Reference Range Interpretation Comments POCT GLU (test code = 0576031786) 129 mg/dL 70-110 H Lab Interpretation (test code = Abnormal 41814-6) [facility] GLUCOSE (AUTOMATED)2021-10-29 06:06:06 Test Item Value Reference Range Interpretation Comments POCT GLU (test code = 7840081343) 142 mg/dL 70-110 H Lab Interpretation (test code = Abnormal 97281-3) [facility] GLUCOSE (AUTOMATED)2021-10-29 01:19:38 Test Item Value Reference Range Interpretation Comments POCT GLU (test code = 0699556962) 151 mg/dL 70-110 H Lab Interpretation (test code = Abnormal 79006-7) [facility] + LACTIC [id number] 23:12:59 Test Item Value Reference Range Interpretation Comments PH (test code = 2) 7.35-7.45 PCO2 (test code = See_Comment [Automate d 7582472746) message] The sy stem which generated this result transmitted reference range : 35 - 45 mmHg. The reference range was not used to interpret this result as normal/abnormal . PO2 (test code = See_Comment H [Automated 7983128404) message] The sy stem which generated this result transmitted reference range : 80 - 100 mmHg. The reference range was not used to interpret this result as normal/abnormal . HCO3 (test code = See_Comment L [Automate d 0159061160) message] The sy stem which generated this result transmitted reference range : 22 - 26 mEq/L. The reference range was not used to interpret this result as normal/abnormal . BE (test code = See_Comment L [Automated 1372511857) message] The sy stem which generated this result transmitted reference range : -3.0 - 3.0 mEq/ L. The reference r bernadine was not used to interpret this result as normal/abnormal . THB (test code = 8.0 g/dL 12.0-16.0 LL 1781499115) %O2HB (test code = 96.8 % 94.0-99.0 0079339116) %COHB ART (test code = 0.3 % 0.0-1.5 3005801381) %METHB ART (test code = 0.3 % 0.4-1.5 L 2261081458) VOL%O2 ART (test code = 11.1 % 15.0-23.0 L 6568003901) NA (test code = 142 mmol/L 135-145 5820821323) K+ (test code = 3.3 mmol/L 3.5-5.0 L 4753205543) AC CA IONZ (test code = 4.20 mg/dL 4.50-5.30 L 5714514085) GLUCOSE (test code = 129 mg/dL 70-110 H 0084933391) LACTIC ACID (test code 1.26 mmol/L 0.50-2.20 = 0746555434) Lab Interpretation Abnormal (test code = 47587-0) [facility] [id number] 23:12:59 Test Item Value Reference Range Interpretation Comments PH (test code = 2) 7.35-7.45 PCO2 (test code = See_Comment [Automate d 3256920300) message] The sy stem which generated this result transmitted reference range : 35 - 45 mmHg. The reference range was not used to interpret this result as normal/abnormal . PO2 (test code = See_Comment H [Automated 7294602483) message] The sy stem which generated this result transmitted reference range : 80 - 100 mmHg. The reference range was not used to interpret this result as normal/abnormal . HCO3 (test code = See_Comment L [Automate d 3612966582) message] The sy stem which generated this result transmitted reference range : 22 - 26 mEq/L. The reference range was not used to interpret this result as normal/abnormal . BE (test code = See_Comment L [Automated 5344507534) message] The sy stem which generated this result transmitted reference range : -3.0 - 3.0 mEq/ L. The reference r bernadine was not used to interpret this result as normal/abnormal . THB (test code = 8.0 g/dL 12.0-16.0 LL 9960135309) %O2HB (test code = 96.8 % 94.0-99.0 5956662371) %COHB ART (test code = 0.3 % 0.0-1.5 1499354672) %METHB ART (test code = 0.3 % 0.4-1.5 L 3016504230) VOL%O2 ART (test code = 11.1 % 15.0-23.0 L 8957385130) NA (test code = 142 mmol/L 135-145 2793327047) K+ (test code = 3.3 mmol/L 3.5-5.0 L 4900837320) AC CA IONZ (test code = 4.20 mg/dL 4.50-5.30 L 1285381330) GLUCOSE (test code = 129 mg/dL 70-110 H 3901428895) LACTIC ACID (test code 1.26 mmol/L 0.50-2.20 = 4479235790) Lab Interpretation Abnormal (test code = 63775-4) [facility] 23:04:29 Test Item Value Reference Range Interpretation Comments POCT GLU (test code = 6662750570) 148 mg/dL 70-110 H Lab Interpretation (test code = Abnormal 68293-0) [facility] WITHOUT [id number] 18:56:21 Test Item Value Reference Range Interpretation Comments WBC (test code = 6690-2) See_Comment [A utomated message] The system [employer] generated this result transmit radames reference range : 4.30 - 11.10 10*3/?L. The reference range was not used to interpret this result as normal/abnormal . RBC (test code = 789-8) See_Comment L [Au tomated message] The system [employer] generated this result transmit radames reference range : 3.93 - 5.25 10* 6/?L. The reference r bernadine was not used to interpret this result as normal/abnormal . HGB (test code = 718-7) 7.4 g/dL 11.6-15.0 L HCT (test code = 4544-3) 23.1 % 35.7-45.2 L MCH (test code = 785-6) 28.6 pg 25.9-32.8 MCV (test code = 787-2) 89.2 fL 80.6-95.5 MCHC (test code = 786-4) 32.0 g/dL 31.6-35.1 PLT (test code = 777-3) See_Comment L [Au tomated message] The system [employer] generated this result transmit radames reference range : 166 - 358 10*3/?L. The reference range was not used to interpret this result as normal/abnormal . MPV (test code = 10.2 fL 9.5-12.9 54048-4) RDW-CV (test code = 15.7 % 12.0-15.5 H 788-0) RDW-SD (test code = 51.5 fL 39.0-49.9 H 98239-8) NRBC x10^3 (test code = See_Comment [Au tomated message] 1179643974) The system [employer] generated this result transmit radames reference range : 10*3/?L. The reference range was not used to interpret this result as normal/abnormal . NRBC/100 WBC (test code See_Comment [Au tomated message] = 8268030329) The system [facility] generated this result transmit radames reference range : 0.0 - 10.0 /100 WBC s. The reference r bernadine was not used to interpret this result as normal/abnormal . IPF % (test code = 8238828973) Lab Interpretation (test Abnormal code = 66784-8) [facility]21-[facility]-28 18:06:53 Test Item Value Reference Range Interpretation Comments POCT GLU (test code = 3165378506) 114 mg/dL 70-110 H Lab Interpretation (test code = Abnormal 53966-6) [facility] [id number] 16:02:24 Test Item Value Reference Range Interpretation Comments PH (test code = 2) 7.35-7.45 PCO2 (test code = See_Comment [Automate d 5202753239) message] The sy stem which generated this result transmitted reference range : 35 - 45 mmHg. The reference range was not used to interpret this result as normal/abnormal . PO2 (test code = See_Comment H [Automated 5728078370) message] The sy stem which generated this result transmitted reference range : 80 - 100 mmHg. The reference range was not used to interpret this result as normal/abnormal . HCO3 (test code = See_Comment [Automate d 5193145131) message] The sy stem which generated this result transmitted reference range : 22 - 26 mEq/L. The reference range was not used to interpret this result as normal/abnormal . BE (test code = See_Comment [Automated 9536840451) message] The sy stem which generated this result transmitted reference range : -3.0 - 3.0 mEq/ L. The reference r bernadine was not used to interpret this result as normal/abnormal . THB (test code = 9.2 g/dL 12.0-16.0 L 1410598601) %O2HB (test code = 96.7 % 94.0-99.0 9727573850) %COHB ART (test code = 0.2 % 0.0-1.5 0265285701) %METHB ART (test code = 0.3 % 0.4-1.5 L 1571923007) VOL%O2 ART (test code = 12.7 % 15.0-23.0 L 2428007403) NA (test code = 142 mmol/L 135-145 7806283309) K+ (test code = 3.2 mmol/L 3.5-5.0 L 9773086950) AC CA IONZ (test code = 4.40 mg/dL 4.50-5.30 L 9693028399) GLUCOSE (test code = 90 mg/dL 70-110 9407688855) LACTIC ACID (test code 0.80 mmol/L 0.50-2.20 = 1683775511) Lab Interpretation Abnormal (test code = 87942-9) [facility]-28 15:48:08 Test Item Value Reference Range Interpretation Comments POCT GLU (test code = 3498646136) 114 mg/dL 70-110 H Lab Interpretation (test code = Abnormal 55144-8) [facility] Hospital[facility]osph[facility] [id number] 15:20:15 Test Item Value Reference Range Interpretation Comments PHOSPHORUS (test code = 7037803795) 4.0 mg/dL 2.5-5.0 Lab Interpretation (test code = Normal 60012-6) [facility] (NA, K, CL, CO2, GLUCOSE, BUN, CREATININE, CA)2021-10-28 10:38:28 Test Item Value Reference Range Interpretation Comments NA (test code = 146 mmol/L 135-145 H 9804459209) K (test code = 3.2 mmol/L 3.5-5.0 L 4779070514) CL (test code = 114 mmol/L 98-108 H 5011111650) CO2 TOTAL (test code = 20 mmol/L 23-31 L 1309004547) AGAP (test code = 2-16 4690880985) BUN (test code = 47 mg/dL 7-23 H 6000443945) GLUCOSE (test code = 106 mg/dL 70-110 4482897398) CREATININE (test code = 2.94 mg/dL 0.50-1.04 H 1340634982) CALCIUM (test code = 7.6 mg/dL 8.6-10.6 L 4821270498) eGFR (test code = mL/min/1.73m2 4631476024) JOSE GUADALUPE (test code = JOSE GUADALUPE) Association of Glomerular Filtration Rate (GFR) and Staging of Kidney Disease* + --+ --+ ------+| GFR (mL/min/1.73 m2) ?| With Kidney Damage ?| ?Without Kidney Damage+ --------+ --------+ +| ?>90 ?| ?Stage one ?| ? Normal ?+ ---+ ---+ -------+| ?60-89 ?| ?Stage two ?| ? Decreased GFR ? + --+ --+ ------+| ?30-59 ?| ?Stage three ?| ? Stage three ? + --+ --+ ------+| ?15-29 ?| ?Stage four ? | ? Stage four ?+ ---+ ---+ -------+| ?<15 (or dialysis) ? ?| ?Stage five ? | ? Stage five ?+ ---+ ---+ -------+ *Each stage assumes the associated GFR level has been in effect for at least three months. ?Stages 1 to 5, with or without kidney disease, indicate chronic kidney disease. Notes: Determination of stages one and two (with eGFR >59mL/min/1.73 m2) requires estimation of kidney damage for at least three months as defined by structural or functional abnormalities of the kidney, manifested by either:Pathological abnormalities or Markers of kidney damage (including abnormalities in the composition of the blood or urine or abnormalities in imaging tests). Lab Interpretation Abnormal (test code = 65868-6) [facility]2021-10-28 10:13:42 Test Item Value Reference Range Interpretation Comments POCT GLU (test code = 1883627742) 127 mg/dL 70-110 H Lab Interpretation (test code = Abnormal 59501-9) [facility] + LACTIC [id number] 10:00:32 Test Item Value Reference Range Interpretation Comments PH (test code = 2) 7.35-7.45 H PCO2 (test code = See_Comment L [Automate d 6118627696) message] The sy stem which generated this result transmitted reference range : 35 - 45 mmHg. The reference range was not used to interpret this result as normal/abnormal . PO2 (test code = See_Comment H [Automated 6540973866) message] The sy stem which generated this result transmitted reference range : 80 - 100 mmHg. The reference range was not used to interpret this result as normal/abnormal . HCO3 (test code = See_Comment L [Automate d 2328856981) message] The sy stem which generated this result transmitted reference range : 22 - 26 mEq/L. The reference range was not used to interpret this result as normal/abnormal . BE (test code = See_Comment [Automated 3293966109) message] The sy stem which generated this result transmitted reference range : -3.0 - 3.0 mEq/ L. The reference r bernadine was not used to interpret this result as normal/abnormal . THB (test code = 7.7 g/dL 12.0-16.0 LL 9436816413) %O2HB (test code = 97.9 % 94.0-99.0 0524190073) %COHB ART (test code = 0.3 % 0.0-1.5 0313034373) %METHB ART (test code = 0.3 % 0.4-1.5 L 0768157425) VOL%O2 ART (test code = 10.9 % 15.0-23.0 L 7277675766) NA (test code = 145 mmol/L 135-145 3810922556) K+ (test code = 3.2 mmol/L 3.5-5.0 L 2447491027) AC CA IONZ (test code = 4.40 mg/dL 4.50-5.30 L 6333709789) GLUCOSE (test code = 110 mg/dL 70-110 9070099474) LACTIC ACID (test code 1.00 mmol/L 0.50-2.20 = 3711057057) Lab Interpretation Abnormal (test code = 03645-5) [facility] LACTIC [id number] 07:59:49 Test Item Value Reference Range Interpretation Comments PH (test code = 2) 7.35-7.45 H PCO2 (test code = See_Comment L [Automate d 2265565366) message] The sy stem which generated this result transmitted reference range : 35 - 45 mmHg. The reference range was not used to interpret this result as normal/abnormal . PO2 (test code = See_Comment H [Automated 1392927823) message] The sy stem which generated this result transmitted reference range : 80 - 100 mmHg. The reference range was not used to interpret this result as normal/abnormal . HCO3 (test code = See_Comment L [Automate d 6145988677) message] The sy stem which generated this result transmitted reference range : 22 - 26 mEq/L. The reference range was not used to interpret this result as normal/abnormal . BE (test code = See_Comment [Automated 8231299719) message] The sy stem which generated this result transmitted reference range : -3.0 - 3.0 mEq/ L. The reference r bernadine was not used to interpret this result as normal/abnormal . THB (test code = 8.0 g/dL 12.0-16.0 LL 5172029651) %O2HB (test code = 98.0 % 94.0-99.0 8568972985) %COHB ART (test code = 0.3 % 0.0-1.5 0133615262) %METHB ART (test code = 0.2 % 0.4-1.5 L 0595339047) VOL%O2 ART (test code = 11.3 % 15.0-23.0 L 5150023513) NA (test code = 146 mmol/L 135-145 H 0181137497) K+ (test code = 3.1 mmol/L 3.5-5.0 L 1552018448) AC CA IONZ (test code = 4.30 mg/dL 4.50-5.30 L 0325471672) GLUCOSE (test code = 123 mg/dL 70-110 H 4284729622) LACTIC ACID (test code 1.01 mmol/L 0.50-2.20 = 2772758511) Lab Interpretation Abnormal (test code = 51654-0) [facility] METABOLIC PANEL (NA, K, CL, CO2, GLUCOSE, BUN, CREATININE, CA)2021-10-28 06:34:21 Test Item Value Reference Range Interpretation Comments NA (test code = 149 mmol/L 135-145 H 3603451608) K (test code = 3.1 mmol/L 3.5-5.0 L 0326998801) CL (test code = 118 mmol/L 98-108 H 2939467668) CO2 TOTAL (test code = 19 mmol/L 23-31 L 3705232260) AGAP (test code = 2-16 3975804516) BUN (test code = 58 mg/dL 7-23 H 1698995625) GLUCOSE (test code = 122 mg/dL 70-110 H 4023904834) CREATININE (test code = 3.68 mg/dL 0.50-1.04 H 0202481352) CALCIUM (test code = 7.4 mg/dL 8.6-10.6 L 9383833003) eGFR (test code = mL/min/1.73m2 5942692015) JOSE GUADALUPE (test code = JOSE GUADALUPE) Association of Glomerular Filtration Rate (GFR) and Staging of Kidney Disease* + --+ --+ ------+| GFR (mL/min/1.73 m2) ?| With Kidney Damage ?| ?Without Kidney Damage+ --------+ --------+ +| ?>90 ?| ?Stage one ?| ? Normal ?+ ---+ ---+ -------+| ?60-89 ?| ?Stage two ?| ? Decreased GFR ? + --+ --+ ------+| ?30-59 ?| ?Stage three ?| ? Stage three ? + --+ --+ ------+| ?15-29 ?| ?Stage four ? | ? Stage four ?+ ---+ ---+ -------+| ?<15 (or dialysis) ? ?| ?Stage five ? | ? Stage five ?+ ---+ ---+ -------+ *Each stage assumes the associated GFR level has been in effect for at least three months. ?Stages 1 to 5, with or without kidney disease, indicate chronic kidney disease. Notes: Determination of stages one and two (with eGFR >59mL/min/1.73 m2) requires estimation of kidney damage for at least three months as defined by structural or functional abnormalities of the kidney, manifested by either:Pathological abnormalities or Markers of kidney damage (including abnormalities in the composition of the blood or urine or abnormalities in imaging tests). Lab Interpretation Abnormal (test code = 68752-6) [facility]ACTIC [id number] 05:59:00 Test Item Value Reference Range Interpretation Comments PH (test code = 7.32-7.42 H 7476698142) PCO2 LORA (test code = See_Comment L [Auto mated 7925478308) message] The sy stem which generated this result transmitted reference range : 41 - 51 mmHg. The reference range was not used to interpret this result as normal/abnormal . PO2 LORA (test code = See_Comment HH [Autom ated 2456050944) message] The sy stem which generated this result transmitted reference range : 25 - 40 mmHg. The reference range was not used to interpret this result as normal/abnormal . HCO3 LORA (test code = See_Comment L [Auto mated 5030445500) message] The sy stem which generated this result transmitted reference range : 24 - 28 mEq/L. The reference range was not used to interpret this result as normal/abnormal . AC VBE(BEAKER) (test mEq/L code = 8726360133) THB LORA (test code = 8.1 g/dL 12.0-16.0 LL 4899374732) %O2HB LORA (test code = 97.5 % 52.0-63.0 H 8148843547) %COHB LORA (test code = 0.3 % 0.0-1.5 3500833856) %METHB LORA (test code = 0.3 % 0.4-1.5 L 2617086371) VOL%O2 LORA (test code = 11.3 % 6.0-12.0 1272306872) NA (test code = 148 mmol/L 135-145 H 5983239566) K+ (test code = 3.0 mmol/L 3.5-5.0 L 6052158174) AC CA IONZ (test code = 4.10 mg/dL 4.50-5.30 L 0974820712) GLUCOSE (test code = 128 mg/dL 70-110 H 4481181158) LACTIC ACID (test code 1.18 mmol/L 0.50-2.20 = 6718540279) Lab Interpretation Abnormal (test code = 75460-6) [facility]21-[facility]-28 05:53:12 Test Item Value Reference Range Interpretation Comments POCT GLU (test code = 4111203353) 147 mg/dL 70-110 H Lab Interpretation (test code = Abnormal 46450-6) [facility] LACTIC [id number] 02:39:23 Test Item Value Reference Range Interpretation Comments PH (test code = 2) 7.35-7.45 PCO2 (test code = See_Comment L [Automate d 1691505451) message] The sy stem which generated this result transmitted reference range : 35 - 45 mmHg. The reference range was not used to interpret this result as normal/abnormal . PO2 (test code = See_Comment H [Automated 1067318168) message] The sy stem which generated this result transmitted reference range : 80 - 100 mmHg. The reference range was not used to interpret this result as normal/abnormal . HCO3 (test code = See_Comment L [Automate d 4375620331) message] The sy stem which generated this result transmitted reference range : 22 - 26 mEq/L. The reference range was not used to interpret this result as normal/abnormal . BE (test code = See_Comment L [Automated 5988206777) message] The sy stem which generated this result transmitted reference range : -3.0 - 3.0 mEq/ L. The reference r bernadine was not used to interpret this result as normal/abnormal . THB (test code = 7.9 g/dL 12.0-16.0 LL 0936144610) %O2HB (test code = 97.8 % 94.0-99.0 2698435383) %COHB ART (test code = 0.3 % 0.0-1.5 4538281943) %METHB ART (test code = 0.3 % 0.4-1.5 L 5857468039) VOL%O2 ART (test code = 11.1 % 15.0-23.0 L 5434492488) NA (test code = 153 mmol/L 135-145 H 8378552263) K+ (test code = 3.4 mmol/L 3.5-5.0 L 1501845317) AC CA IONZ (test code = 3.70 mg/dL 4.50-5.30 L 6917313086) GLUCOSE (test code = 158 mg/dL 70-110 H 0142620100) LACTIC ACID (test code 1.56 mmol/L 0.50-2.20 = 7242427671) Lab Interpretation Abnormal (test code = 72757-1) [facility]2021-10-28 02:34:31 Test Item Value Reference Range Interpretation Comments POCT GLU (test code = 8635629390) 175 mg/dL 70-110 H Lab Interpretation (test code = Abnormal 06192-3) [facility] METABOLIC PANEL (NA, K, CL, CO2, GLUCOSE, BUN, CREATININE, CA)2021-10-28 02:14:46 Test Item Value Reference Range Interpretation Comments NA (test code = 150 mmol/L 135-145 H 3608202530) K (test code = 3.3 mmol/L 3.5-5.0 L 6121238587) CL (test code = 119 mmol/L 98-108 H 7312886464) CO2 TOTAL (test code = 19 mmol/L 23-31 L 0539465494) AGAP (test code = 2-16 9639858955) BUN (test code = 71 mg/dL 7-23 H 9431047058) GLUCOSE (test code = 144 mg/dL 70-110 H 6287514212) CREATININE (test code = 4.40 mg/dL 0.50-1.04 H 1950784840) CALCIUM (test code = 7.0 mg/dL 8.6-10.6 L 8699826897) eGFR (test code = mL/min/1.73m2 3152115603) JOSE GUADALUPE (test code = JOSE GUADALUPE) Association of Glomerular Filtration Rate (GFR) and Staging of Kidney Disease* + --+ --+ ------+| GFR (mL/min/1.73 m2) ?| With Kidney Damage ?| ?Without Kidney Damage+ --------+ --------+ +| ?>90 ?| ?Stage one ?| ? Normal ?+ ---+ ---+ -------+| ?60-89 ?| ?Stage two ?| ? Decreased GFR ? + --+ --+ ------+| ?30-59 ?| ?Stage three ?| ? Stage three ? + --+ --+ ------+| ?15-29 ?| ?Stage four ? | ? Stage four ?+ ---+ ---+ -------+| ?<15 (or dialysis) ? ?| ?Stage five ? | ? Stage five ?+ ---+ ---+ -------+ *Each stage assumes the associated GFR level has been in effect for at least three months. ?Stages 1 to 5, with or without kidney disease, indicate chronic kidney disease. Notes: Determination of stages one and two (with eGFR >59mL/min/1.73 m2) requires estimation of kidney damage for at least three months as defined by structural or functional abnormalities of the kidney, manifested by either:Pathological abnormalities or Markers of kidney damage (including abnormalities in the composition of the blood or urine or abnormalities in imaging tests). Lab Interpretation Abnormal (test code = 37028-5) [facility] B Surface Antibody (HBsAb)2021-10-28 00:34:36 Test Item Value Reference Range Interpretation Comments HBsAB (test code = Negative 8811711796) HBsAb mIU/mL Semi-Quantitative (test code = 4700603375) JOSE GUADALUPE (test code = Interpretation: JOSE GUADALUPE) ?Hepatitis B Surface Antibody ? Negative - Patient is considered to be not immune to infection with HBV. ? ? Positive - Anti-HBs detected at greater than or equal to 12 mIU/mL. ?Patient is considered to be immune to infection with HBV. ? [facility] B Core Antibody, [id number] 00:34:36 Test Item Value Reference Range Interpretation Comments HBC (test code = 7868748354) Negative HBC Semi-Quantitative (test code = 2051143791) [facility] B Surface Antigen (HBsAg)2021-10-28 00:16:52 Test Item Value Reference Range Interpretation Comments HBsAg Semi-Quantitative (test code = Negative Negative 5195-3) [facility] METABOLIC PANEL (NA, K, CL, CO2, GLUCOSE, BUN, CREATININE, CA)2021-10-27 23:04:21 Test Item Value Reference Range Interpretation Comments NA (test code = 152 mmol/L 135-145 H 8488044892) K (test code = 3.7 mmol/L 3.5-5.0 0923133216) CL (test code = 122 mmol/L 98-108 H 6895700833) CO2 TOTAL (test code = 20 mmol/L 23-31 L 8720546248) AGAP (test code = 2-16 1225583655) BUN (test code = 78 mg/dL 7-23 H 3861634249) GLUCOSE (test code = 137 mg/dL 70-110 H 5452635801) CREATININE (test code = 4.92 mg/dL 0.50-1.04 H 0209487936) CALCIUM (test code = 7.0 mg/dL 8.6-10.6 L 0448895916) eGFR (test code = mL/min/1.73m2 7981635219) JOSE GUADALUPE (test code = JOSE GUADALUPE) Association of Glomerular Filtration Rate (GFR) and Staging of Kidney Disease* + --+ --+ ------+| GFR (mL/min/1.73 m2) ?| With Kidney Damage ?| ?Without Kidney Damage+ --------+ --------+ +| ?>90 ?| ?Stage one ?| ? Normal ?+ ---+ ---+ -------+| ?60-89 ?| ?Stage two ?| ? Decreased GFR ? + --+ --+ ------+| ?30-59 ?| ?Stage three ?| ? Stage three ? + --+ --+ ------+| ?15-29 ?| ?Stage four ? | ? Stage four ?+ ---+ ---+ -------+| ?<15 (or dialysis) ? ?| ?Stage five ? | ? Stage five ?+ ---+ ---+ -------+ *Each stage assumes the associated GFR level has been in effect for at least three months. ?Stages 1 to 5, with or without kidney disease, indicate chronic kidney disease. Notes: Determination of stages one and two (with eGFR >59mL/min/1.73 m2) requires estimation of kidney damage for at least three months as defined by structural or functional abnormalities of the kidney, manifested by either:Pathological abnormalities or Markers of kidney damage (including abnormalities in the composition of the blood or urine or abnormalities in imaging tests). Lab Interpretation Abnormal (test code = 56938-6) [facility]K+GLU+CA2+2021-10-27 22:57:29 Test Item Value Reference Range Interpretation Comments PH (test code = 2) 7.35-7.45 LL PCO2 (test code = See_Comment H [Automate d message] 7559441231) The system [employer] generated this result transmit radames reference range : 35 - 45 mmHg. The reference range was not used to interpret this result as normal/abnormal . PO2 (test code = See_Comment H [Automated message] 6116019691) The system [employer] generated this result transmit radames reference range : 80 - 100 mmHg. The reference range was not used to interpret this result as normal/abnormal . HCO3 (test code = See_Comment L [Automate d message] 4214242611) The system [employer] generated this result transmit radames reference range : 22 - 26 mEq/L. The reference range was not used to interpret this result as normal/abnormal . BE (test code = See_Comment L [Automated message] 0691485814) The system [employer] generated this result transmit radames reference range : -3.0 - 3.0 mEq/ L. The reference r bernadine was not used to interpret this result as normal/abnormal . THB (test code = 7.8 g/dL 12.0-16.0 LL 4783279131) %O2HB (test code = 97.7 % 94.0-99.0 6042898121) %COHB ART (test code = 0.2 % 0.0-1.5 6933342569) %METHB ART (test code = 0.3 % 0.4-1.5 L 9697713017) VOL%O2 ART (test code = 11.1 % 15.0-23.0 L 6175056847) NA (test code = 146 mmol/L 135-145 H 5491840742) K+ (test code = 3.7 mmol/L 3.5-5.0 1534600270) AC CA IONZ (test code = 4.30 mg/dL 4.50-5.30 L 3922694227) GLUCOSE (test code = 135 mg/dL 70-110 H 7060709516) Lab Interpretation Abnormal (test code = 00269-6) [facility]NA+K+GLU+CA2+2021-10-27 22:57:29 Test Item Value Reference Range Interpretation Comments PH (test code = 2) 7.35-7.45 LL PCO2 (test code = See_Comment H [Automate d message] 1583016073) The system [employer]-rabbit generated this result transmit radames reference range : 35 - 45 mmHg. The reference range was not used to interpret this result as normal/abnormal . PO2 (test code = See_Comment H [Automated message] [id number]) The system [employer] generated this result transmit radames reference range : 80 - 100 mmHg. The reference range was not used to interpret this result as normal/abnormal . HCO3 (test code = See_Comment L [Automate d message] 2315384210) The system [employer] generated this result transmit radames reference range : 22 - 26 mEq/L. The reference range was not used to interpret this result as normal/abnormal . BE (test code = See_Comment L [Automated message] 9846502673) The system [employer]rabbit generated this result transmit radames reference range : -3.0 - 3.0 mEq/ L. The reference r bernadine was not used to interpret this result as normal/abnormal . THB (test code = 7.8 g/dL 12.0-16.0 LL 5154139022) %O2HB (test code = 97.7 % 94.0-99.0 0263430067) %COHB ART (test code = 0.2 % 0.0-1.5 4304955523) %METHB ART (test code = 0.3 % 0.4-1.5 L 1151785125) VOL%O2 ART (test code = 11.1 % 15.0-23.0 L 7217084086) NA (test code = 146 mmol/L 135-145 H 9781450916) K+ (test code = 3.7 mmol/L 3.5-5.0 5380020547) AC CA IONZ (test code = 4.30 mg/dL 4.50-5.30 L 8988821355) GLUCOSE (test code = 135 mg/dL 70-110 H 0924527465) Lab Interpretation Abnormal (test code = 21346-0) [facility] [id number] 22:30:14 Test Item Value Reference Range Interpretation Comments PH (test code = 7.32-7.42 LL 8022191158) PCO2 LORA (test code = See_Comment H [Auto mated [id number]) message] The sy stem which generated this result transmitted reference range : 41 - 51 mmHg. The reference range was not used to interpret this result as normal/abnormal . PO2 LORA (test code = See_Comment HH [Autom ated 7012129807) message] The sy stem which generated this result transmitted reference range : 25 - 40 mmHg. The reference range was not used to interpret this result as normal/abnormal . HCO3 LORA (test code = See_Comment L [Auto mated 4253646660) message] The sy stem which generated this result transmitted reference range : 24 - 28 mEq/L. The reference range was not used to interpret this result as normal/abnormal . AC VBE(BEAKER) (test mEq/L code = 7373287033) THB LORA (test code = 8.7 g/dL 12.0-16.0 L 0329527388) %O2HB LORA (test code = 93.4 % 52.0-63.0 H 0147246634) %COHB LORA (test code = 0.5 % 0.0-1.5 9938960185) %METHB LORA (test code = 0.1 % 0.4-1.5 L 5091370560) VOL%O2 LORA (test code = 11.6 % 6.0-12.0 0907102070) NA (test code = 146 mmol/L 135-145 H 5088082605) K+ (test code = 3.8 mmol/L 3.5-5.0 0628377972) AC CA IONZ (test code = 4.40 mg/dL 4.50-5.30 L 8771206001) GLUCOSE (test code = 136 mg/dL 70-110 H 6408150277) LACTIC ACID (test code 0.73 mmol/L 0.50-2.20 = 7699404587) Lab Interpretation Abnormal (test code = 19963-5) [facility] 22:14:05 Test Item Value Reference Range Interpretation Comments POCT GLU (test code = 5915955849) 149 mg/dL 70-110 H Lab Interpretation (test code = Abnormal 66080-7) [facility] METABOLIC PANEL (NA, K, CL, CO2, GLUCOSE, BUN, CREATININE, CA)2021-10-27 18:51:02 Test Item Value Reference Range Interpretation Comments NA (test code = 151 mmol/L 135-145 H 8446143694) K (test code = 3.7 mmol/L 3.5-5.0 5926230538) CL (test code = 123 mmol/L 98-108 H 7017681817) CO2 TOTAL (test code = 18 mmol/L 23-31 L 7480011428) AGAP (test code = 2-16 5371461652) BUN (test code = 75 mg/dL 7-23 H 7384573169) GLUCOSE (test code = 184 mg/dL 70-110 H 0344744224) CREATININE (test code = 4.85 mg/dL 0.50-1.04 H 7204925955) CALCIUM (test code = 6.9 mg/dL 8.6-10.6 L 6985523484) eGFR (test code = mL/min/1.73m2 1275095184) JOSE GUADALUPE (test code = JOSE GUADALUPE) Association of Glomerular Filtration Rate (GFR) and Staging of Kidney Disease* + --+ --+ ------+| GFR (mL/min/1.73 m2) ?| With Kidney Damage ?| ?Without Kidney Damage+ --------+ --------+ +| ?>90 ?| ?Stage one ?| ? Normal ?+ ---+ ---+ -------+| ?60-89 ?| ?Stage two ?| ? Decreased GFR ? + --+ --+ ------+| ?30-59 ?| ?Stage three ?| ? Stage three ? + --+ --+ ------+| ?15-29 ?| ?Stage four ? | ? Stage four ?+ ---+ ---+ -------+| ?<15 (or dialysis) ? ?| ?Stage five ? | ? Stage five ?+ ---+ ---+ -------+ *Each stage assumes the associated GFR level has been in effect for at least three months. ?Stages 1 to 5, with or without kidney disease, indicate chronic kidney disease. Notes: Determination of stages one and two (with eGFR >59mL/min/1.73 m2) requires estimation of kidney damage for at least three months as defined by structural or functional abnormalities of the kidney, manifested by either:Pathological abnormalities or Markers of kidney damage (including abnormalities in the composition of the blood or urine or abnormalities in imaging tests). Lab Interpretation Abnormal (test code = 37627-1) [facility] LACT[facility] [id number] 18:15:37 Test Item Value Reference Range Interpretation Comments PH (test code = 7.32-7.42 L 5577437331) PCO2 LORA (test code = See_Comment L [Auto mated 8046957143) message] The sy stem which generated this result transmitted reference range : 41 - 51 mmHg. The reference range was not used to interpret this result as normal/abnormal . PO2 LORA (test code = See_Comment H [Autom ated 8156283243) message] The sy stem which generated this result transmitted reference range : 25 - 40 mmHg. The reference range was not used to interpret this result as normal/abnormal . HCO3 LORA (test code = See_Comment L [Auto mated 7579729127) message] The sy stem which generated this result transmitted reference range : 24 - 28 mEq/L. The reference range was not used to interpret this result as normal/abnormal . AC VBE(BEAKER) (test mEq/L code = 3278437691) THB LORA (test code = 8.3 g/dL 12.0-16.0 LL 6585760453) %O2HB LORA (test code = 84.0 % 52.0-63.0 H 7283401607) %COHB LORA (test code = 0.3 % 0.0-1.5 0809744796) %METHB LORA (test code = 0.0 % 0.4-1.5 L 6421060017) VOL%O2 LORA (test code = 9.9 % 6.0-12.0 5313284926) NA (test code = 149 mmol/L 135-145 H 7003504331) K+ (test code = 3.7 mmol/L 3.5-5.0 8370851742) AC CA IONZ (test code = 4.20 mg/dL 4.50-5.30 L 6737010760) GLUCOSE (test code = 188 mg/dL 70-110 H 7409384701) LACTIC ACID (test code 1.06 mmol/L 0.50-2.20 = 5708324100) Lab Interpretation Abnormal (test code = 50025-7) [facility] GLUCOSE (AUTOMATED)2021-10-27 17:57:51 Test Item Value Reference Range Interpretation Comments POCT GLU (test code = 4615345956) 204 mg/dL 70-110 H Lab Interpretation (test code = Abnormal 05080-9) [facility] 15:34:41 Test Item Value Reference Range Interpretation Comments MAGNESIUM (test code = 6273688274) 2.0 mg/dL 1.7-2.4 Lab Interpretation (test code = Normal 74426-3) [facility], [id number] 15:30:59 Test Item Value Reference Range Interpretation Comments VIT D 25OH (test code = 19 ng/mL 25-80 L 91663-5) JOSE GUADALUPE (test code = JOSE GUADALUPE) Deficiency: <20 ng/mLInsufficiency: 20-24 ng/mLOptimal: 25-80 ng/mL Lab Interpretation (test Abnormal code = 67975-8) [facility], [id number] 15:30:59 Test Item Value Reference Range Interpretation Comments VIT D 25OH (test code = 19 ng/mL 25-80 L 91746-3) JOSE GUADALUPE (test code = JOSE GUADALUPE) Deficiency: <20 ng/mLInsufficiency: 20-24 ng/mLOptimal: 25-80 ng/mL Lab Interpretation (test Abnormal code = 85064-5) [facility] GLUCOSE (AUTOMATED)2021-10-27 14:15:23 Test Item Value Reference Range Interpretation Comments POCT GLU (test code = 0770818013) 169 mg/dL 70-110 H Lab Interpretation (test code = Abnormal 63999-8) [facility] (NA, K, CL, CO2, GLUCOSE, BUN, CREATININE, CA)2021-10-27 14:11:17 Test Item Value Reference Range Interpretation Comments NA (test code = 153 mmol/L 135-145 H 6290482321) K (test code = 3.7 mmol/L 3.5-5.0 0650315800) CL (test code = 124 mmol/L 98-108 H 6010824256) CO2 TOTAL (test code = 19 mmol/L 23-31 L 6302636662) AGAP (test code = 2-16 1326915767) BUN (test code = 75 mg/dL 7-23 H 5408935182) GLUCOSE (test code = 142 mg/dL 70-110 H 5788821470) CREATININE (test code = 4.94 mg/dL 0.50-1.04 H 0673225341) CALCIUM (test code = 7.1 mg/dL 8.6-10.6 L 8234601014) eGFR (test code = mL/min/1.73m2 1472412595) JOSE GUADALUPE (test code = JOSE GUADALUPE) Association of Glomerular Filtration Rate (GFR) and Staging of Kidney Disease* + --+ --+ ------+| GFR (mL/min/1.73 m2) ?| With Kidney Damage ?| ?Without Kidney Damage+ --------+ --------+ +| ?>90 ?| ?Stage one ?| ? Normal ?+ ---+ ---+ -------+| ?60-89 ?| ?Stage two ?| ? Decreased GFR ? + --+ --+ ------+| ?30-59 ?| ?Stage three ?| ? Stage three ? + --+ --+ ------+| ?15-29 ?| ?Stage four ? | ? Stage four ?+ ---+ ---+ -------+| ?<15 (or dialysis) ? ?| ?Stage five ? | ? Stage five ?+ ---+ ---+ -------+ *Each stage assumes the associated GFR level has been in effect for at least three months. ?Stages 1 to 5, with or without kidney disease, indicate chronic kidney disease. Notes: Determination of stages one and two (with eGFR >59mL/min/1.73 m2) requires estimation of kidney damage for at least three months as defined by structural or functional abnormalities of the kidney, manifested by either:Pathological abnormalities or Markers of kidney damage (including abnormalities in the composition of the blood or urine or abnormalities in imaging tests). Lab Interpretation Abnormal (test code = 06604-4) [facility] + LACTIC [id number] 14:08:05 Test Item Value Reference Range Interpretation Comments PH (test code = 7.32-7.42 L 6111075264) PCO2 LORA (test code = See_Comment [Auto mated 9713530785) message] The sy stem which generated this result transmitted reference range : 41 - 51 mmHg. The reference range was not used to interpret this result as normal/abnormal . PO2 LORA (test code = See_Comment [Autom ated 8318158228) message] The sy stem which generated this result transmitted reference range : 25 - 40 mmHg. The reference range was not used to interpret this result as normal/abnormal . HCO3 LORA (test code = See_Comment L [Auto mated 6284033707) message] The sy stem which generated this result transmitted reference range : 24 - 28 mEq/L. The reference range was not used to interpret this result as normal/abnormal . AC VBE(BEAKER) (test mEq/L code = 7806288296) THB LORA (test code = 8.4 g/dL 12.0-16.0 L 9116162985) %O2HB LORA (test code = 69.8 % 52.0-63.0 H 0412598473) %COHB LORA (test code = 0.3 % 0.0-1.5 2841868624) %METHB LORA (test code = 0.0 % 0.4-1.5 L 7698510636) VOL%O2 LORA (test code = 8.3 % 6.0-12.0 5809821215) NA (test code = 149 mmol/L 135-145 H 4941841735) K+ (test code = 3.6 mmol/L 3.5-5.0 9571337665) AC CA IONZ (test code = 4.20 mg/dL 4.50-5.30 L 9955375761) GLUCOSE (test code = 143 mg/dL 70-110 H 1620110312) LACTIC ACID (test code 1.35 mmol/L 0.50-2.20 = 7550272643) Lab Interpretation Abnormal (test code = 31809-8) [facility] METABOLIC PANEL (NA, K, CL, CO2, GLUCOSE, BUN, CREATININE, CA)2021-10-27 10:22:09 Test Item Value Reference Range Interpretation Comments NA (test code = 152 mmol/L 135-145 H 2810848444) K (test code = 3.5 mmol/L 3.5-5.0 1379760568) CL (test code = 122 mmol/L 98-108 H 5355390179) CO2 TOTAL (test code = 17 mmol/L 23-31 L 3300361361) AGAP (test code = 2-16 7636409879) BUN (test code = 77 mg/dL 7-23 H 9592486061) GLUCOSE (test code = 156 mg/dL 70-110 H 2226645241) CREATININE (test code = 4.88 mg/dL 0.50-1.04 H 7890243696) CALCIUM (test code = 7.0 mg/dL 8.6-10.6 L 2850143791) eGFR (test code = mL/min/1.73m2 1782020186) JOSE GUADALUPE (test code = JOSE GUADALUPE) Association of Glomerular Filtration Rate (GFR) and Staging of Kidney Disease* + --+ --+ ------+| GFR (mL/min/1.73 m2) ?| With Kidney Damage ?| ?Without Kidney Damage+ --------+ --------+ +| ?>90 ?| ?Stage one ?| ? Normal ?+ ---+ ---+ -------+| ?60-89 ?| ?Stage two ?| ? Decreased GFR ? + --+ --+ ------+| ?30-59 ?| ?Stage three ?| ? Stage three ? + --+ --+ ------+| ?15-29 ?| ?Stage four ? | ? Stage four ?+ ---+ ---+ -------+| ?<15 (or dialysis) ? ?| ?Stage five ? | ? Stage five ?+ ---+ ---+ -------+ *Each stage assumes the associated GFR level has been in effect for at least three months. ?Stages 1 to 5, with or without kidney disease, indicate chronic kidney disease. Notes: Determination of stages one and two (with eGFR >59mL/min/1.73 m2) requires estimation of kidney damage for at least three months as defined by structural or functional abnormalities of the kidney, manifested by either:Pathological abnormalities or Markers of kidney damage (including abnormalities in the composition of the blood or urine or abnormalities in imaging tests). Lab Interpretation Abnormal (test code = 89661-0) [facility] LACTIC [id number] 09:52:16 Test Item Value Reference Range Interpretation Comments PH (test code = 7.32-7.42 L 2999265228) PCO2 LORA (test code = See_Comment L [Auto mated 5164552594) message] The sy stem which generated this result transmitted reference range : 41 - 51 mmHg. The reference range was not used to interpret this result as normal/abnormal . PO2 LORA (test code = See_Comment H [Autom ated 1396639231) message] The sy stem which generated this result transmitted reference range : 25 - 40 mmHg. The reference range was not used to interpret this result as normal/abnormal . HCO3 LORA (test code = See_Comment L [Auto mated 3042693751) message] The sy stem which generated this result transmitted reference range : 24 - 28 mEq/L. The reference range was not used to interpret this result as normal/abnormal . AC VBE(BEAKER) (test mEq/L code = 8074526073) THB LORA (test code = 8.5 g/dL 12.0-16.0 L 5166958222) %O2HB LORA (test code = 76.2 % 52.0-63.0 H 0083098275) %COHB LORA (test code = 0.3 % 0.0-1.5 5044125460) %METHB LORA (test code = 0.3 % 0.4-1.5 L 8269755427) VOL%O2 LORA (test code = 9.1 % 6.0-12.0 5644390794) NA (test code = 148 mmol/L 135-145 H 4774598091) K+ (test code = 3.6 mmol/L 3.5-5.0 9631550214) AC CA IONZ (test code = 4.10 mg/dL 4.50-5.30 L 6908382864) GLUCOSE (test code = 150 mg/dL 70-110 H 7884765526) LACTIC ACID (test code 1.17 mmol/L 0.50-2.20 = 6381110119) Lab Interpretation Abnormal (test code = 88531-6) [facility]21-10-27 09:50:16 Test Item Value Reference Range Interpretation Comments POCT GLU (test code = 3119207315) 166 mg/dL 70-110 H Lab Interpretation (test code = Abnormal 64846-3) [facility] 08:21:09 Test Item Value Reference Range Interpretation Comments MAGNESIUM (test code = 1612116843) 2.0 mg/dL 1.7-2.4 Lab Interpretation (test code = Normal 44927-5) [facility]2021-[facility] 08:21:09 Test Item Value Reference Range Interpretation Comments PHOSPHORUS (test code = 5932451862) 7.3 mg/dL 2.5-5.0 H Lab Interpretation (test code = Abnormal 33321-5) [facility] METABOLIC PANEL (NA, K, CL, CO2, GLUCOSE, BUN, CREATININE, CA)2021-10-27 06:02:39 Test Item Value Reference Range Interpretation Comments NA (test code = 149 mmol/L 135-145 H 9018278744) K (test code = 3.5 mmol/L 3.5-5.0 1523766790) CL (test code = 122 mmol/L 98-108 H 7951726859) CO2 TOTAL (test code = 18 mmol/L 23-31 L 3722797265) AGAP (test code = 2-16 6653917352) BUN (test code = 78 mg/dL 7-23 H 8181295031) GLUCOSE (test code = 137 mg/dL 70-110 H 5250292108) CREATININE (test code = 4.75 mg/dL 0.50-1.04 H 5629830937) CALCIUM (test code = 6.8 mg/dL 8.6-10.6 L 9273774484) eGFR (test code = mL/min/1.73m2 7678244886) JOSE GUADALUPE (test code = JOSE GUADALUPE) Association of Glomerular Filtration Rate (GFR) and Staging of Kidney Disease* + --+ --+ ------+| GFR (mL/min/1.73 m2) ?| With Kidney Damage ?| ?Without Kidney Damage+ --------+ --------+ +| ?>90 ?| ?Stage one ?| ? Normal ?+ ---+ ---+ -------+| ?60-89 ?| ?Stage two ?| ? Decreased GFR ? + --+ --+ ------+| ?30-59 ?| ?Stage three ?| ? Stage three ? + --+ --+ ------+| ?15-29 ?| ?Stage four ? | ? Stage four ?+ ---+ ---+ -------+| ?<15 (or dialysis) ? ?| ?Stage five ? | ? Stage five ?+ ---+ ---+ -------+ *Each stage assumes the associated GFR level has been in effect for at least three months. ?Stages 1 to 5, with or without kidney disease, indicate chronic kidney disease. Notes: Determination of stages one and two (with eGFR >59mL/min/1.73 m2) requires estimation of kidney damage for at least three months as defined by structural or functional abnormalities of the kidney, manifested by either:Pathological abnormalities or Markers of kidney damage (including abnormalities in the composition of the blood or urine or abnormalities in imaging tests). Lab Interpretation Abnormal (test code = 03703-4) [facility]2021-10-27 05:25:08 Test Item Value Reference Range Interpretation Comments POCT GLU (test code = 2230091046) 145 mg/dL 70-110 H Lab Interpretation (test code = Abnormal 97759-8) [facility] LACTIC [id number] 03:38:05 Test Item Value Reference Range Interpretation Comments PH (test code = 7.32-7.42 LL 5626308370) PCO2 LORA (test code = See_Comment [Auto mated 0605907860) message] The sy stem which generated this result transmitted reference range : 41 - 51 mmHg. The reference range was not used to interpret this result as normal/abnormal . PO2 LORA (test code = See_Comment H [Autom ated 0809496836) message] The sy stem which generated this result transmitted reference range : 25 - 40 mmHg. The reference range was not used to interpret this result as normal/abnormal . HCO3 LORA (test code = See_Comment L [Auto mated 6319431778) message] The sy stem which generated this result transmitted reference range : 24 - 28 mEq/L. The reference range was not used to interpret this result as normal/abnormal . AC VBE(BEAKER) (test mEq/L code = 9967876298) THB LORA (test code = 9.5 g/dL 12.0-16.0 L 1193058131) %O2HB LORA (test code = 72.8 % 52.0-63.0 H 1735496413) %COHB LORA (test code = 0.3 % 0.0-1.5 0980879372) %METHB LORA (test code = 0.1 % 0.4-1.5 L 3936542785) VOL%O2 LORA (test code = 9.7 % 6.0-12.0 0786004874) NA (test code = 148 mmol/L 135-145 H 1080788782) K+ (test code = 3.5 mmol/L 3.5-5.0 3397640223) AC CA IONZ (test code = 4.20 mg/dL 4.50-5.30 L 6519036345) GLUCOSE (test code = 146 mg/dL 70-110 H 9771546511) LACTIC ACID (test code 0.81 mmol/L 0.50-2.20 = 2143228570) Lab Interpretation Abnormal (test code = 46956-0) [facility] METABOLIC PANEL (NA, K, CL, CO2, GLUCOSE, BUN, CREATININE, CA)2021-10-27 02:31:02 Test Item Value Reference Range Interpretation Comments NA (test code = 148 mmol/L 135-145 H 6841479849) K (test code = 3.9 mmol/L 3.5-5.0 5287457579) CL (test code = 122 mmol/L 98-108 H 6448742386) CO2 TOTAL (test code = 17 mmol/L 23-31 L 7398959698) AGAP (test code = 2-16 8098194963) BUN (test code = 80 mg/dL 7-23 H 8328945371) GLUCOSE (test code = 163 mg/dL 70-110 H 7013705516) CREATININE (test code = 4.74 mg/dL 0.50-1.04 H 9681661461) CALCIUM (test code = 7.0 mg/dL 8.6-10.6 L 9188148408) eGFR (test code = mL/min/1.73m2 1984328422) JOSE GUADALUPE (test code = JOSE GUADALUPE) Association of Glomerular Filtration Rate (GFR) and Staging of Kidney Disease* + --+ --+ ------+| GFR (mL/min/1.73 m2) ?| With Kidney Damage ?| ?Without Kidney Damage+ --------+ --------+ +| ?>90 ?| ?Stage one ?| ? Normal ?+ ---+ ---+ -------+| ?60-89 ?| ?Stage two ?| ? Decreased GFR ? + --+ --+ ------+| ?30-59 ?| ?Stage three ?| ? Stage three ? + --+ --+ ------+| ?15-29 ?| ?Stage four ? | ? Stage four ?+ ---+ ---+ -------+| ?<15 (or dialysis) ? ?| ?Stage five ? | ? Stage five ?+ ---+ ---+ -------+ *Each stage assumes the associated GFR level has been in effect for at least three months. ?Stages 1 to 5, with or without kidney disease, indicate chronic kidney disease. Notes: Determination of stages one and two (with eGFR >59mL/min/1.73 m2) requires estimation of kidney damage for at least three months as defined by structural or functional abnormalities of the kidney, manifested by either:Pathological abnormalities or Markers of kidney damage (including abnormalities in the composition of the blood or urine or abnormalities in imaging tests). Lab Interpretation Abnormal (test code = 38892-8) [facility]21-[facility]-27 01:43:21 Test Item Value Reference Range Interpretation Comments POCT GLU (test code = 0005819228) 177 mg/dL 70-110 H Lab Interpretation (test code = Abnormal 05345-8) [facility] LACTIC [id number] 01:40:40 Test Item Value Reference Range Interpretation Comments PH (test code = 7.32-7.42 LL 3630835304) PCO2 LORA (test code = See_Comment [Auto mated 7023264219) message] The sy stem which generated this result transmitted reference range : 41 - 51 mmHg. The reference range was not used to interpret this result as normal/abnormal . PO2 LORA (test code = See_Comment H [Autom ated 7900796018) message] The sy stem which generated this result transmitted reference range : 25 - 40 mmHg. The reference range was not used to interpret this result as normal/abnormal . HCO3 LORA (test code = See_Comment L [Auto mated 1794343602) message] The sy stem which generated this result transmitted reference range : 24 - 28 mEq/L. The reference range was not used to interpret this result as normal/abnormal . AC VBE(BEAKER) (test mEq/L code = 5101402397) THB LORA (test code = 8.7 g/dL 12.0-16.0 L 7161248647) %O2HB LORA (test code = 72.8 % 52.0-63.0 H 3558810575) %COHB LORA (test code = 0.1 % 0.0-1.5 3090496958) %METHB LORA (test code = 0.2 % 0.4-1.5 L 3559267163) VOL%O2 LORA (test code = 8.9 % 6.0-12.0 3887641268) NA (test code = 146 mmol/L 135-145 H 3272861781) K+ (test code = 3.8 mmol/L 3.5-5.0 0272386631) AC CA IONZ (test code = 4.20 mg/dL 4.50-5.30 L 0031703617) GLUCOSE (test code = 165 mg/dL 70-110 H 3492184582) LACTIC ACID (test code 0.78 mmol/L 0.50-2.20 = 8066744418) Lab Interpretation Abnormal (test code = 97787-7) [facility]2021-10-26 23:02:27 Test Item Value Reference Range Interpretation Comments POCT GLU (test code = 1180454564) 166 mg/dL 70-110 H Lab Interpretation (test code = Abnormal 64785-3) [facility] METABOLIC PANEL (NA, K, CL, CO2, GLUCOSE, BUN, CREATININE, CA)2021-10-26 22:21:44 Test Item Value Reference Range Interpretation Comments NA (test code = 140 mmol/L 135-145 5975797468) K (test code = 3.0 mmol/L 3.5-5.0 L 0261334661) CL (test code = 117 mmol/L 98-108 H 2128669083) CO2 TOTAL (test code = 15 mmol/L 23-31 L 2954513586) AGAP (test code = 2-16 7175217371) BUN (test code = 73 mg/dL 7-23 H 9809825483) GLUCOSE (test code = 140 mg/dL 70-110 H 9475340954) CREATININE (test code = 4.34 mg/dL 0.50-1.04 H 8703759253) CALCIUM (test code = 6.3 mg/dL 8.6-10.6 L 3515769560) eGFR (test code = mL/min/1.73m2 2519645931) JOSE GUADALUPE (test code = JOSE GUADALUPE) Association of Glomerular Filtration Rate (GFR) and Staging of Kidney Disease* + --+ --+ ------+| GFR (mL/min/1.73 m2) ?| With Kidney Damage ?| ?Without Kidney Damage+ --------+ --------+ +| ?>90 ?| ?Stage one ?| ? Normal ?+ ---+ ---+ -------+| ?60-89 ?| ?Stage two ?| ? Decreased GFR ? + --+ --+ ------+| ?30-59 ?| ?Stage three ?| ? Stage three ? + --+ --+ ------+| ?15-29 ?| ?Stage four ? | ? Stage four ?+ ---+ ---+ -------+| ?<15 (or dialysis) ? ?| ?Stage five ? | ? Stage five ?+ ---+ ---+ -------+ *Each stage assumes the associated GFR level has been in effect for at least three months. ?Stages 1 to 5, with or without kidney disease, indicate chronic kidney disease. Notes: Determination of stages one and two (with eGFR >59mL/min/1.73 m2) requires estimation of kidney damage for at least three months as defined by structural or functional abnormalities of the kidney, manifested by either:Pathological abnormalities or Markers of kidney damage (including abnormalities in the composition of the blood or urine or abnormalities in imaging tests). Lab Interpretation Abnormal (test code = 78741-7) [facility] WITH [id number] 21:55:42 Test Item Value Reference Range Interpretation Comments WBC (test code = See_Comment [Automated 6690-2) message] The sy stem which generated this result transmitted reference range : 4.30 - 11.10 10*3/?L. The reference range was not used to interpret this result as normal/abnormal . RBC (test code = See_Comment L [Automated 789-8) message] The sy stem which generated this result transmitted reference range : 3.93 - 5.25 10*6/?L. The reference range was not used to interpret this result as normal/abnormal . HGB (test code = 7.0 g/dL 11.6-15.0 L 718-7) HCT (test code = 20.5 % 35.7-45.2 L 4544-3) MCV (test code = 88.0 fL 80.6-95.5 787-2) MCH (test code = 30.0 pg 25.9-32.8 785-6) MCHC (test code = 34.1 g/dL 31.6-35.1 786-4) RDW-SD (test code = 48.7 fL 39.0-49.9 69732-0) RDW-CV (test code = 15.3 % 12.0-15.5 788-0) PLT (test code = See_Comment L [Automated 777-3) message] The sy stem which generated this result transmitted reference range : 166 - 358 10*3/ ?L. The reference r bernadine was not used to interpret this result as normal/abnormal . MPV (test code = 10.4 fL 9.5-12.9 16488-6) NRBC/100 WBC (test See_Comment [Automat ed code = 1355440116) message] The system which generated this result transmitted reference range : 0.0 - 10.0 /100 WBCs. The refer ence range was not u sed to interpret th is result as normal/abnormal . NRBC x10^3 (test code <0.01 See_Comment [Auto mated = 4845303654) message] The s ystem which generated this result transmitted reference range : 10*3/?L. The reference range was not used to interpret this result as normal/abnormal . GRAN MAT (NEUT) % 82.6 % (test code = 770-8) IMM GRAN % (test code 0.80 % = 5075099383) LYMPH % (test code = 4.8 % 736-9) MONO % (test code = 10.9 % 5905-5) EOS % (test code = 0.8 % 713-8) BASO % (test code = 0.1 % 706-2) GRAN MAT x10^3(ANC) 6.31 10*3/uL 1.88-7.09 (test code = 0869017989) IMM GRAN x10^3 (test 0.06 10*3/uL 0.00-0.06 code = 5655148705) LYMPH x10^3 (test code 0.37 10*3/uL 1.32-3.29 L = 731-0) MONO x10^3 (test code 0.83 10*3/uL 0.33-0.92 = 742-7) EOS x10^3 (test code = 0.06 10*3/uL 0.03-0.39 711-2) BASO x10^3 (test code <0.03 0.01-0.07 = 704-7) Lab Interpretation Abnormal (test code = 52150-8) [facility] [id number] 21:53:16 Test Item Value Reference Range Interpretation Comments PH (test code = 7.32-7.42 L 8665040150) PCO2 LORA (test code = See_Comment L [Auto mated 4434521947) message] The sy stem which generated this result transmitted reference range : 41 - 51 mmHg. The reference range was not used to interpret this result as normal/abnormal . PO2 LROA (test code = See_Comment [Autom ated 8886144597) message] The sy stem which generated this result transmitted reference range : 25 - 40 mmHg. The reference range was not used to interpret this result as normal/abnormal . HCO3 LORA (test code = See_Comment L [Auto mated 0106830415) message] The sy stem which generated this result transmitted reference range : 24 - 28 mEq/L. The reference range was not used to interpret this result as normal/abnormal . AC VBE(BEAKER) (test mEq/L code = 1664663491) THB LORA (test code = 6.7 g/dL 12.0-16.0 LL 9820582841) %O2HB LORA (test code = 63.8 % 52.0-63.0 H 0168553927) %COHB LORA (test code = 0.3 % 0.0-1.5 1354594617) %METHB LORA (test code = 0.0 % 0.4-1.5 L 9536480967) VOL%O2 LORA (test code = 6.0 % 6.0-12.0 4915192375) NA (test code = 139 mmol/L 135-145 4943936018) K+ (test code = 3.1 mmol/L 3.5-5.0 L 0827611419) AC CA IONZ (test code = 3.90 mg/dL 4.50-5.30 L 9739855005) GLUCOSE (test code = 139 mg/dL 70-110 H 6400881573) LACTIC ACID (test code 1.09 mmol/L 0.50-2.20 = 1757267532) Lab Interpretation Abnormal (test code = 61075-2) [facility] 20:22:56 Test Item Value Reference Range Interpretation Comments MAGNESIUM (test code = 0358721959) 2.0 mg/dL 1.7-2.4 Lab Interpretation (test code = Normal 64189-0) [facility]2021-[facility]-12 20:22:56 Test Item Value Reference Range Interpretation Comments PHOSPHORUS (test code = 3694636148) 6.4 mg/dL 2.5-5.0 H Lab Interpretation (test code = Abnormal 26845-5) [facility] (NA, K, CL, CO2, GLUCOSE, BUN, CREATININE, CA)2021-10-26 19:23:31 Test Item Value Reference Range Interpretation Comments NA (test code = 141 mmol/L 135-145 5574315809) K (test code = 3.0 mmol/L 3.5-5.0 L 6748746866) CL (test code = 117 mmol/L 98-108 H 2099790557) CO2 TOTAL (test code = 16 mmol/L 23-31 L 9475707880) AGAP (test code = 2-16 6291376652) BUN (test code = 73 mg/dL 7-23 H 6666357917) GLUCOSE (test code = 169 mg/dL 70-110 H 2353441002) CREATININE (test code = 4.32 mg/dL 0.50-1.04 H 4653891845) CALCIUM (test code = 6.2 mg/dL 8.6-10.6 L 7153803227) eGFR (test code = mL/min/1.73m2 0332255706) JOSE GUADALUPE (test code = JOSE GUADALUPE) Association of Glomerular Filtration Rate (GFR) and Staging of Kidney Disease* + --+ --+ ------+| GFR (mL/min/1.73 m2) ?| With Kidney Damage ?| ?Without Kidney Damage+ --------+ --------+ +| ?>90 ?| ?Stage one ?| ? Normal ?+ ---+ ---+ -------+| ?60-89 ?| ?Stage two ?| ? Decreased GFR ? + --+ --+ ------+| ?30-59 ?| ?Stage three ?| ? Stage three ? + --+ --+ ------+| ?15-29 ?| ?Stage four ? | ? Stage four ?+ ---+ ---+ -------+| ?<15 (or dialysis) ? ?| ?Stage five ? | ? Stage five ?+ ---+ ---+ -------+ *Each stage assumes the associated GFR level has been in effect for at least three months. ?Stages 1 to 5, with or without kidney disease, indicate chronic kidney disease. Notes: Determination of stages one and two (with eGFR >59mL/min/1.73 m2) requires estimation of kidney damage for at least three months as defined by structural or functional abnormalities of the kidney, manifested by either:Pathological abnormalities or Markers of kidney damage (including abnormalities in the composition of the blood or urine or abnormalities in imaging tests). Lab Interpretation Abnormal (test code = 68433-0) [facility] + LACTIC [id number] 18:57:55 Test Item Value Reference Range Interpretation Comments PH (test code = 7.32-7.42 L 4076812175) PCO2 LORA (test code = See_Comment L [Auto mated 0722609088) message] The sy stem which generated this result transmitted reference range : 41 - 51 mmHg. The reference range was not used to interpret this result as normal/abnormal . PO2 LORA (test code = See_Comment [Autom ated 6198306765) message] The sy stem which generated this result transmitted reference range : 25 - 40 mmHg. The reference range was not used to interpret this result as normal/abnormal . HCO3 LORA (test code = See_Comment L [Auto mated 2550666721) message] The sy stem which generated this result transmitted reference range : 24 - 28 mEq/L. The reference range was not used to interpret this result as normal/abnormal . AC VBE(BEAKER) (test mEq/L code = 2933486676) THB LORA (test code = 7.3 g/dL 12.0-16.0 LL 1124787847) %O2HB LORA (test code = 67.4 % 52.0-63.0 H 5250857320) %COHB LORA (test code = 0.4 % 0.0-1.5 0104193846) %METHB LORA (test code = 0.2 % 0.4-1.5 L 9827522837) VOL%O2 LORA (test code = 7.0 % 6.0-12.0 5444487673) NA (test code = 137 mmol/L 135-145 0278890907) K+ (test code = 3.0 mmol/L 3.5-5.0 L 3386641609) AC CA IONZ (test code = 4.00 mg/dL 4.50-5.30 L 2212987868) GLUCOSE (test code = 182 mg/dL 70-110 H 4855533644) LACTIC ACID (test code 1.07 mmol/L 0.50-2.20 = 6654636736) Lab Interpretation Abnormal (test code = 22649-6) [facility] GLUCOSE (AUTOMATED)2021-10-26 18:56:50 Test Item Value Reference Range Interpretation Comments POCT GLU (test code = 5446546909) 207 mg/dL 70-110 H Lab Interpretation (test code = Abnormal 56196-7) [facility] + LACTIC [id number] 16:46:41 Test Item Value Reference Range Interpretation Comments PH (test code = 2) 7.35-7.45 L PCO2 (test code = See_Comment L [Automate d 4044004667) message] The sy stem which generated this result transmitted reference range : 35 - 45 mmHg. The reference range was not used to interpret this result as normal/abnormal . PO2 (test code = See_Comment L [Automated 1344832142) message] The sy stem which generated this result transmitted reference range : 80 - 100 mmHg. The reference range was not used to interpret this result as normal/abnormal . HCO3 (test code = See_Comment L [Automate d 5293994232) message] The sy stem which generated this result transmitted reference range : 22 - 26 mEq/L. The reference range was not used to interpret this result as normal/abnormal . BE (test code = See_Comment L [Automated 5657795340) message] The sy stem which generated this result transmitted reference range : -3.0 - 3.0 mEq/ L. The reference r bernadine was not used to interpret this result as normal/abnormal . THB (test code = 7.0 g/dL 12.0-16.0 LL 3056018775) %O2HB (test code = 92.8 % 94.0-99.0 L 7378535335) %COHB ART (test code = 0.3 % 0.0-1.5 5153807242) %METHB ART (test code = 0.0 % 0.4-1.5 L 0192619284) VOL%O2 ART (test code = 9.3 % 15.0-23.0 L 9920112703) NA (test code = 146 mmol/L 135-145 H 5489388256) K+ (test code = 3.4 mmol/L 3.5-5.0 L 5076324017) AC CA IONZ (test code = 4.20 mg/dL 4.50-5.30 L 2684325217) GLUCOSE (test code = 217 mg/dL 70-110 H 9705345729) LACTIC ACID (test code 0.88 mmol/L 0.50-2.20 = 6331012879) Lab Interpretation Abnormal (test code = 44677-2) [facility] P[facility] RBC (in units), 1 Units 2021-10-26 16:08:23 Test Item Value Reference Range Interpretation Comments Cross Match Result Compatible (test code = 4409) ISBT Blood Type Code (test code = 442070) Unit Blood Type (test O Pos code = 4410) Unit Number (test [id number] code = 4411) Blood Expiration Date & Time (test code = 245020) Status Information Issued (test code = 4412) Product Red Blood Cells Identification (test code = 4413) Product Code (test P7881S87 Performed at [facility] code = 4414) Laboratory Services [facility] Blood [address] [place] [address]Lvkx Free: [phone] A No. [id number] [facility] Packed RBC (in units), 1 Units 2021-10-26 16:08:23 Test Item Value Reference Range Interpretation Comments Cross Match Result Compatible (test code = 4409) ISBT Blood Type Code (test code = 803686) Unit Blood Type (test O Pos code = 4410) Unit Number (test [id number] code = 4411) Blood Expiration Date & Time (test code = 310265) Status Information Issued (test code = 4412) Product Red Blood Cells Identification (test code = 4413) Product Code (test B7995V61 Performed at [facility] code = 4414) Laboratory Services - [facility] Blood [address] [address]Hbmh Free: [phone] A No. [id number] [facility] (NA, K, CL, CO2, GLUCOSE, BUN, CREATININE, CA)2021-10-26 14:30:15 Test Item Value Reference Range Interpretation Comments NA (test code = 148 mmol/L 135-145 H 4598294307) K (test code = 3.2 mmol/L 3.5-5.0 L 0837036273) CL (test code = 116 mmol/L 98-108 H 1145097142) CO2 TOTAL (test code = 19 mmol/L 23-31 L 4364108925) AGAP (test code = 2-16 7647242977) BUN (test code = 80 mg/dL 7-23 H 1489999956) GLUCOSE (test code = 408 mg/dL 70-110 H 9252731756) CREATININE (test code = 4.60 mg/dL 0.50-1.04 H 1556702022) CALCIUM (test code = 6.8 mg/dL 8.6-10.6 L 9815922066) eGFR (test code = mL/min/1.73m2 4664207359) JOSE GUADALUPE (test code = JOSE GUADALUPE) Association of Glomerular Filtration Rate (GFR) and Staging of Kidney Disease* + --+ --+ ------+| GFR (mL/min/1.73 m2) ?| With Kidney Damage ?| ?Without Kidney Damage+ --------+ --------+ +| ?>90 ?| ?Stage one ?| ? Normal ?+ ---+ ---+ -------+| ?60-89 ?| ?Stage two ?| ? Decreased GFR ? + --+ --+ ------+| ?30-59 ?| ?Stage three ?| ? Stage three ? + --+ --+ ------+| ?15-29 ?| ?Stage four ? | ? Stage four ?+ ---+ ---+ -------+| ?<15 (or dialysis) ? ?| ?Stage five ? | ? Stage five ?+ ---+ ---+ -------+ *Each stage assumes the associated GFR level has been in effect for at least three months. ?Stages 1 to 5, with or without kidney disease, indicate chronic kidney disease. Notes: Determination of stages one and two (with eGFR >59mL/min/1.73 m2) requires estimation of kidney damage for at least three months as defined by structural or functional abnormalities of the kidney, manifested by either:Pathological abnormalities or Markers of kidney damage (including abnormalities in the composition of the blood or urine or abnormalities in imaging tests). Lab Interpretation Abnormal (test code = 23709-2) [facility] HospitalIN[facility] PTH CALCIUM [id number] 13:59:21 Test Item Value Reference Range Interpretation Comments PTH-INTACT (test code = 1010.2 pg/mL 12.0-88.0 H 2001464700) PTH-CA Interpretation [facility] (test code = 9811812138) herson a needed for interpretation. CALCIUM (test code = 7.4 mg/dL 8.6-10.6 L 8645791997) Lab Interpretation (test Abnormal code = 37123-1) [facility] CALCIUM [id number] 13:59:21 Test Item Value Reference Range Interpretation Comments PTH-INTACT (test code = 1010.2 pg/mL 12.0-88.0 H 3080736342) PTH-CA Interpretation [facility] (test code = 5795977115) herson a needed for interpretation. CALCIUM (test code = 7.4 mg/dL 8.6-10.6 L 5094793505) Lab Interpretation (test Abnormal code = 25735-0) [facility] + LACTIC [id number] 13:53:25 Test Item Value Reference Range Interpretation Comments PH (test code = 7.32-7.42 L 1835333294) PCO2 LORA (test code = See_Comment [Auto mated 7600168799) message] The sy stem which generated this result transmitted reference range : 41 - 51 mmHg. The reference range was not used to interpret this result as normal/abnormal . PO2 LORA (test code = See_Comment [Autom ated 1857340386) message] The sy stem which generated this result transmitted reference range : 25 - 40 mmHg. The reference range was not used to interpret this result as normal/abnormal . HCO3 LORA (test code = See_Comment L [Auto mated 8293683371) message] The sy stem which generated this result transmitted reference range : 24 - 28 mEq/L. The reference range was not used to interpret this result as normal/abnormal . AC VBE(BEAKER) (test mEq/L code = 2640606435) THB LORA (test code = 7.6 g/dL 12.0-16.0 LL 1676934916) %O2HB LORA (test code = 68.2 % 52.0-63.0 H 1359951461) %COHB LORA (test code = 0.2 % 0.0-1.5 7590751814) %METHB LORA (test code = 0.1 % 0.4-1.5 L 2930593940) VOL%O2 LORA (test code = 7.3 % 6.0-12.0 4200170722) NA (test code = 144 mmol/L 135-145 8946735192) K+ (test code = 3.2 mmol/L 3.5-5.0 L 7605919205) AC CA IONZ (test code = 4.10 mg/dL 4.50-5.30 L 0755651359) GLUCOSE (test code = 441 mg/dL 70-110 H 4893132689) LACTIC ACID (test code 1.04 mmol/L 0.50-2.20 = 3588142963) Lab Interpretation Abnormal (test code = 00008-0) [facility] GLUCOSE (AUTOMATED)2021-10-26 13:42:34 Test Item Value Reference Range Interpretation Comments POCT GLU (test code = 8417181914) 458 mg/dL 70-110 HH Lab Interpretation (test code = Abnormal 29628-3) [facility] GLUCOSE (AUTOMATED)2021-10-26 13:42:34 Test Item Value Reference Range Interpretation Comments POCT GLU (test code = 7093849175) 189 mg/dL 70-110 H Lab Interpretation (test code = Abnormal 02478-3) [facility]2021-12-12 13:24:36 Test Item Value Reference Range Interpretation Comments PHOSPHORUS (test code = 6746207658) 8.2 mg/dL 2.5-5.0 H Lab Interpretation (test code = Abnormal 19207-1) [facility] MET[facility]OLIC PAN[facility] (NA, K, CL, CO2, GLUCOSE, BUN, CREATININE, CA)2021-10-26 12:58:34 Test Item Value Reference Range Interpretation Comments NA (test code = 149 mmol/L 135-145 H 7861708386) K (test code = 3.6 mmol/L 3.5-5.0 2969972953) CL (test code = 123 mmol/L 98-108 H 4523709964) CO2 TOTAL (test code = 11 mmol/L 23-31 L 4306762049) AGAP (test code = 2-16 5748825476) BUN (test code = 83 mg/dL 7-23 H 9730445123) GLUCOSE (test code = 254 mg/dL 70-110 H 3426826939) CREATININE (test code = 4.84 mg/dL 0.50-1.04 H 3708655821) CALCIUM (test code = 7.4 mg/dL 8.6-10.6 L 8677708843) eGFR (test code = mL/min/1.73m2 8179369619) JOSE GUADALUPE (test code = JOSE GUADALUPE) Association of Glomerular Filtration Rate (GFR) and Staging of Kidney Disease* + --+ --+ ------+| GFR (mL/min/1.73 m2) ?| With Kidney Damage ?| ?Without Kidney Damage+ --------+ --------+ +| ?>90 ?| ?Stage one ?| ? Normal ?+ ---+ ---+ -------+| ?60-89 ?| ?Stage two ?| ? Decreased GFR ? + --+ --+ ------+| ?30-59 ?| ?Stage three ?| ? Stage three ? + --+ --+ ------+| ?15-29 ?| ?Stage four ? | ? Stage four ?+ ---+ ---+ -------+| ?<15 (or dialysis) ? ?| ?Stage five ? | ? Stage five ?+ ---+ ---+ -------+ *Each stage assumes the associated GFR level has been in effect for at least three months. ?Stages 1 to 5, with or without kidney disease, indicate chronic kidney disease. Notes: Determination of stages one and two (with eGFR >59mL/min/1.73 m2) requires estimation of kidney damage for at least three months as defined by structural or functional abnormalities of the kidney, manifested by either:Pathological abnormalities or Markers of kidney damage (including abnormalities in the composition of the blood or urine or abnormalities in imaging tests). Lab Interpretation Abnormal (test code = 73622-5) [facility] INVESTIGATION [id number] 12:29:10 Test Item Value Reference Range Interpretation Comments ABO & RH (test code O Positive Performe d at [facility] = 20) Laboratory Serv [facility] Blood [facility] [place] [address]Qfnq Free: [phone] A No. [id number] [facility] Confirmation (Lab Only)2021-10-26 12:29:10 Test Item Value Reference Range Interpretation Comments ABO & RH (test code O Positive Performe d at [facility] = 20) Laboratory [facility] Blood [address] [address]Bnby Free: [phone] A No. [id number] [facility] INVESTIGATION [id number] 12:29:10 Test Item Value Reference Range Interpretation Comments ABO & RH (test code O Positive Performe d at [facility] = 20) Laboratory [facility] Blood [address] [address]Vwpy Free: [phone] A No. [id number] [facility] Confirmation (Lab Only)2021-10-26 12:29:10 Test Item Value Reference Range Interpretation Comments ABO & RH (test code O Positive Performe d at [facility] = 20) Laboratory [facility] Blood [address] [address]Igdt Free: [phone] A No. [id number] [facility] with [id number] 10:31:31 Test Item Value Reference Range Interpretation Comments WBC (test code = See_Comment [Automated 6690-2) message] The sy stem which generated this result transmitted reference range : 4.30 - 11.10 10*3/?L. The reference range was not used to interpret this result as normal/abnormal . RBC (test code = See_Comment L [Automated 949-8) message] The sy stem which generated this result transmitted reference range : 3.93 - 5.25 10*6/?L. The reference range was not used to interpret this result as normal/abnormal . HGB (test code = 6.1 g/dL 11.6-15.0 L 718-7) HCT (test code = 19.4 % 35.7-45.2 L 4544-3) MCV (test code = 92.4 fL 80.6-95.5 787-2) MCH (test code = 29.0 pg 25.9-32.8 785-6) MCHC (test code = 31.4 g/dL 31.6-35.1 L 786-4) RDW-SD (test code = 54.0 fL 39.0-49.9 H 64450-7) RDW-CV (test code = 15.9 % 12.0-15.5 H 788-0) PLT (test code = See_Comment [Automated 777-3) message] The sy stem which generated this result transmitted reference range : 166 - 358 10*3/ ?L. The reference r bernadine was not used to interpret this result as normal/abnormal . MPV (test code = 10.7 fL 9.5-12.9 35629-5) NRBC/100 WBC (test See_Comment [Automat ed code = 7805944661) message] The system which generated this result transmitted reference range : 0.0 - 10.0 /100 WBCs. The refer ence range was not u sed to interpret th is result as normal/abnormal . NRBC x10^3 (test code See_Comment [Auto mated = 2813736252) message] The s ystem which generated this result transmitted reference range : 10*3/?L. The reference range was not used to interpret this result as normal/abnormal . GRAN MAT (NEUT) % 81.4 % (test code = 770-8) IMM GRAN % (test code 2.40 % = 2370917025) LYMPH % (test code = 5.5 % 736-9) MONO % (test code = 10.2 % 5905-5) EOS % (test code = 0.3 % 713-8) BASO % (test code = 0.2 % 706-2) GRAN MAT x10^3(ANC) 5.02 10*3/uL 1.88-7.09 (test code = 5634332849) IMM GRAN x10^3 (test 0.15 10*3/uL 0.00-0.06 H code = 0942784205) LYMPH x10^3 (test code 0.34 10*3/uL 1.32-3.29 L = 731-0) MONO x10^3 (test code 0.63 10*3/uL 0.33-0.92 = 742-7) EOS x10^3 (test code = <0.03 0.03-0.39 L 711-2) BASO x10^3 (test code <0.03 0.01-0.07 = 704-7) PARDEEP CELLS (test code 2+ See_Comment A [Auto mated = 2505-9) message] The sy stem which generated this result transmitted reference range : (none). The reference range was not used to interpret this result as normal/abnormal . Lab Interpretation Abnormal (test code = 16609-4) [facility] HospitalFERR[facility]IN [id number] 09:59:56 Test Item Value Reference Range Interpretation Comments FERRITIN (test code = 75.8 ng/mL 11.0-264.0 9697393625) JOSE GUADALUPE (test code = JOSE GUADALUPE) Biotin has been reported to cause a negative bias, interpret results relative to patient's use of biotin. Lab Interpretation (test Normal code = 68076-2) [facility] Hospital[facility]ERR[facility]IN [id number] 09:59:56 Test Item Value Reference Range Interpretation Comments FERRITIN (test code = 75.8 ng/mL 11.0-264.0 3965340111) JOSE GUADALUPE (test code = JOSE GUADALUPE) Biotin has been reported to cause a negative bias, interpret results relative to patient's use of biotin. Lab Interpretation (test Normal code = 27508-5) [facility] HospitalIRON [id number] 09:31:57 Test Item Value Reference Range Interpretation Comments IRON (test code = 94 ug/dL 50-160 Slight hem olysis 6207329058) TIBC (test code = 233 ug/dL 250-410 L 3987195120) % FE SAT (test code = 40 % 20-50 1617433601) Lab Interpretation (test Abnormal code = 42677-1) [facility] (NA, K, CL, CO2, GLUCOSE, BUN, CREATININE, CA)2021-10-26 09:11:25 Test Item Value Reference Range Interpretation Comments NA (test code = 150 mmol/L 135-145 H 1960689791) K (test code = 3.8 mmol/L 3.5-5.0 9359810776) CL (test code = 124 mmol/L 98-108 H 6767200409) CO2 TOTAL (test code = 10 mmol/L 23-31 L 5761083095) AGAP (test code = 2-16 3929574021) BUN (test code = 80 mg/dL 7-23 H 9037521856) GLUCOSE (test code = 222 mg/dL 70-110 H 5607418225) CREATININE (test code = 5.11 mg/dL 0.50-1.04 H 0567320921) CALCIUM (test code = 7.5 mg/dL 8.6-10.6 L 1650164595) eGFR (test code = mL/min/1.73m2 1280906932) JOSE GUADALUPE (test code = JOSE GUADALUPE) Association of Glomerular Filtration Rate (GFR) and Staging of Kidney Disease* + --+ --+ ------+| GFR (mL/min/1.73 m2) ?| With Kidney Damage ?| ?Without Kidney Damage+ --------+ --------+ +| ?>90 ?| ?Stage one ?| ? Normal ?+ ---+ ---+ -------+| ?60-89 ?| ?Stage two ?| ? Decreased GFR ? + --+ --+ ------+| ?30-59 ?| ?Stage three ?| ? Stage three ? + --+ --+ ------+| ?15-29 ?| ?Stage four ? | ? Stage four ?+ ---+ ---+ -------+| ?<15 (or dialysis) ? ?| ?Stage five ? | ? Stage five ?+ ---+ ---+ -------+ *Each stage assumes the associated GFR level has been in effect for at least three months. ?Stages 1 to 5, with or without kidney disease, indicate chronic kidney disease. Notes: Determination of stages one and two (with eGFR >59mL/min/1.73 m2) requires estimation of kidney damage for at least three months as defined by structural or functional abnormalities of the kidney, manifested by either:Pathological abnormalities or Markers of kidney damage (including abnormalities in the composition of the blood or urine or abnormalities in imaging tests). Lab Interpretation Abnormal (test code = 06049-1) [facility] HospitalPROT[facility]OM[facility] TIME / [id number] 09:07:34 Test Item Value Reference Range Interpretation Comments PROTIME PATIENT (test See_Comment H [Auto mated message] code = 5964-2) The system [employer] generated this result transmitted ref erence range: 10.1 - 1 2.6 Seconds. The reference range was not used to int erpret this result as normal/abnormal . INR (test code = 6301-6) Nor mal INR <1.1; Warfarin Therap eutic range 2.0 to 3. 0 or 2.5 to 3.5, dep ending upon the indica tions. Lab Interpretation (test Abnormal code = 96305-8) [facility] HospitalACTIVATED PARTIAL THRMPLAS [id number] 09:07:34 Test Item Value Reference Range Interpretation Comments APTT Patient (test code = See_Comment [ Automated message] 3173-2) The system [employer] generated this result transmitted ref erence range: 26 - 36 Seconds. The re ference range was not u sed to interpret this result as normal/abnor mal. Lab Interpretation (test Normal code = 05972-4) [facility] (NA, K, CL, CO2, GLUCOSE, BUN, CREATININE, CA)2021-10-26 06:44:39 Test Item Value Reference Range Interpretation Comments NA (test code = 148 mmol/L 135-145 H 6966093974) K (test code = 4.4 mmol/L 3.5-5.0 0173735658) CL (test code = 127 mmol/L 98-108 H 1838889692) CO2 TOTAL (test code = 5 mmol/L 23-31 L 9289395944) AGAP (test code = 2-16 5621805189) BUN (test code = 82 mg/dL 7-23 H 4371851310) GLUCOSE (test code = 202 mg/dL 70-110 H 4386105395) CREATININE (test code = 5.25 mg/dL 0.50-1.04 H 0443878827) CALCIUM (test code = 7.6 mg/dL 8.6-10.6 L 5923106956) eGFR (test code = mL/min/1.73m2 2512407898) JOSE GUADALUPE (test code = JOSE GUADALUPE) Association of Glomerular Filtration Rate (GFR) and Staging of Kidney Disease* + --+ --+ ------+| GFR (mL/min/1.73 m2) ?| With Kidney Damage ?| ?Without Kidney Damage+ --------+ --------+ +| ?>90 ?| ?Stage one ?| ? Normal ?+ ---+ ---+ -------+| ?60-89 ?| ?Stage two ?| ? Decreased GFR ? + --+ --+ ------+| ?30-59 ?| ?Stage three ?| ? Stage three ? + --+ --+ ------+| ?15-29 ?| ?Stage four ? | ? Stage four ?+ ---+ ---+ -------+| ?<15 (or dialysis) ? ?| ?Stage five ? | ? Stage five ?+ ---+ ---+ -------+ *Each stage assumes the associated GFR level has been in effect for at least three months. ?Stages 1 to 5, with or without kidney disease, indicate chronic kidney disease. Notes: Determination of stages one and two (with eGFR >59mL/min/1.73 m2) requires estimation of kidney damage for at least three months as defined by structural or functional abnormalities of the kidney, manifested by either:Pathological abnormalities or Markers of kidney damage (including abnormalities in the composition of the blood or urine or abnormalities in imaging tests). Lab Interpretation Abnormal (test code = 48057-3) [facility] HospitalAC PANEL 20 + LACTIC [id number] 05:42:42 Test Item Value Reference Range Interpretation Comments PH (test code = 2) 7.35-7.45 LL PCO2 (test code = See_Comment L [Automate d [id number]) message] The sy stem which generated this result transmitted reference range : 35 - 45 mmHg. The reference range was not used to interpret this result as normal/abnormal . PO2 (test code = See_Comment H [Automated [id number]) message] The sy stem which generated this result transmitted reference range : 80 - 100 mmHg. The reference range was not used to interpret this result as normal/abnormal . HCO3 (test code = See_Comment L [Automate d 6982567173) message] The sy stem which generated this result transmitted reference range : 22 - 26 mEq/L. The reference range was not used to interpret this result as normal/abnormal . BE (test code = See_Comment L [Automated 4590299310) message] The sy stem which generated this result transmitted reference range : -3.0 - 3.0 mEq/ L. The reference r bernadine was not used to interpret this result as normal/abnormal . THB (test code = 5.6 g/dL 12.0-16.0 LL 9088092432) %O2HB (test code = 98.0 % 94.0-99.0 7511899797) %COHB ART (test code = 0.3 % 0.0-1.5 7758591449) %METHB ART (test code = 0.3 % 0.4-1.5 L 2562264453) VOL%O2 ART (test code = 8.2 % 15.0-23.0 L 1432880062) NA (test code = 147 mmol/L 135-145 H 4182702099) K+ (test code = 4.5 mmol/L 3.5-5.0 0411383206) AC CA IONZ (test code = 4.70 mg/dL 4.50-5.30 5291287015) GLUCOSE (test code = 197 mg/dL 70-110 H 3800505135) LACTIC ACID (test code 0.91 mmol/L 0.50-2.20 = 5046240002) Lab Interpretation Abnormal (test code = 50882-1) [facility]OS[facility] OR [id number] 04:17:20 Test Item Value Reference Range Interpretation Comments OSMOLALITY (test code = See_Comment [Au tomated message] 0748887353) The system [employer] generated this result transmitted ref erence range: 278 - 30 5 mOsm/kg. The reference range was not used to int erpret this result as normal/abnormal . Lab Interpretation (test Abnormal code = 83390-0) [facility]OS[facility] [id number] 04:17:20 Test Item Value Reference Range Interpretation Comments OSMOLALITY (test code = See_Comment [Au tomated message] 9584433382) The system [employer] generated this result transmitted ref erence range: 278 - 30 5 mOsm/kg. The reference range was not used to int erpret this result as normal/abnormal . Lab Interpretation (test Abnormal code = 31562-9) [facility] HospitalPROCALCITONIN2021-12-12 02:08:04 Test Item Value Reference Range Interpretation Comments Procalcitonin (test 0.19 ng/mL <0.07 H code = 5525791369) JOSE GUADALUPE (test code = JOSE GUADALUPE) INTERPRETATION OF PROCALCITONIN RESULTS IN ADULTS >= 18 YEARS OF AGE Initiation and discontinuation of antibiotics on patients with suspected or confirmed Lower Respiratory Tract Infection in Adults >= 18 years of age. + +-------- --------+ + -----+|Procalcitonin |Interpretation ?|Antibiotic ? ? |Considerations ? |ng/mL ? | ?|recommendation | ? + +-------- --------+ + -----+| <0.1 ? | Bacterial ? ? ?| Strongly ? ? ?| ? | ?| infection very | discouraged ? | Overruling: ? | ?| unlikely ? ? ? | ? | ? Clinically unstable ? ? ? + +-------- --------+ + ? High risk for adverse ? ? | <0.25 ?| Bacterial ? ? ?| Discouraged ? | ? outcome ? | ?| infection ? ? ?| ? | ? SEE IMPORTANT NOTE ?| ?| unlikely ? ? ? | ? | ? + +-------- --------+ + -----+| >=0.25 ? ? ? | Bacterial ? ? ?| Encouraged ? ?| ? | ?| infection ? ? ?| ? | ? | ?| likely ? | ? | Consider treatment failure ?+ +------- ---------+ -+ if levels does not decrease | >0.5 ? | Bacterial ? ? ?| Strongly ? ? ?| appropriately ? | ?| infection very | encouraged ? ?| ? | ?| likely ? | ? | ? + +-------- --------+ + -----+ Discontinuation of antibiotics in high-acuity patients with suspected or confirmed sepsis in Adults >= 18 years of age. + +-------- --------+ + -----+|Procalcitonin |Interpretation ?|Antibiotic ? ? |Considerations ? |ng/mL ? | ?|recommendation | ? + +-------- --------+ + -----+| <0.25 ?| Bacterial ? ? ?| Strongly ? ? ?| ? | ?| infection very | discouraged ? | Overruling: ? | ?| unlikely ? ? ? | ? | ? Clinically unstable ? ? ? + +-------- --------+ + ? High risk for adverse ? ? | <0.5 or drop | Bacterial ? ? ?| Discouraged ? | ? outcome ? | >80% from ? ?| infection ? ? ?| ? | ? SEE IMPORTANT NOTE ?| highest PCT ?| unlikely ? ? ? | ? | ? | level ?| ?| ? | ? + +-------- --------+ + -----+| >=0.5 ?| Bacterial ? ? ?| Encouraged ? ?| ? | ?| infection ? ? ?| ? | ? | ?| likely ? | ? | Consider treatment failure ?+ +------- ---------+ -+ if levels does not decrease | >1.0 ? | Bacterial ? ? ?| Strongly ? ? ?| appropriately ? | ?| infection very | encouraged ? ?| ? | ?| likely ? | ? | ? + +-------- --------+ + -----+ Percentage of drop of Procalcitonin calculation for Discontinuation of antibiotics in high-acuity patients with suspected or confirmed sepsis in Adults >= 18 years of age. ? Procalcitonin highest{}-Procalcitonin current{}Delta Procalcitonin = x100% ? Procalcitonin current {} IMPORTANT NOTE: Procalcitonin may be elevated without bacterial infection by physiologic stress related to trauma, lassiter, chronic dialysis, metastatic cancer, surgery in the past seven days, malaria, some fungal infections, and some forms of vasculitis. The interpretation algorithm may not apply to patients with immunosuppression (equivalent of >10 mg of prednisone daily), HIV with CD4 cell count < 350 cells/mm3, active malignancy on systemic chemotherapy, solid organ transplant or hematopoietic stem cell transplantation, or hospital acquired pneumonia. Additionally, some clinical trials of procalcitonin have excluded patients with shock requiring vasopressor use, acute respiratory failure requiring mechanical ventilation, or those with known lung abscess/empyema. For further information please refer to:[email or web address] Lab Interpretation Abnormal (test code = 04817-5) [facility] HospitalPROCALCITONIN2021-12-12 02:08:04 Test Item Value Reference Range Interpretation Comments Procalcitonin (test 0.19 ng/mL <0.07 H code = 0131023498) JOSE GUADALUPE (test code = JOSE GUADALUPE) INTERPRETATION OF PROCALCITONIN RESULTS IN ADULTS >= 18 YEARS OF AGE Initiation and discontinuation of antibiotics on patients with suspected or confirmed Lower Respiratory Tract Infection in Adults >= 18 years of age. + +-------- --------+ + -----+|Procalcitonin |Interpretation ?|Antibiotic ? ? |Considerations ? |ng/mL ? | ?|recommendation | ? + +-------- --------+ + -----+| <0.1 ? | Bacterial ? ? ?| Strongly ? ? ?| ? | ?| infection very | discouraged ? | Overruling: ? | ?| unlikely ? ? ? | ? | ? Clinically unstable ? ? ? + +-------- --------+ + ? High risk for adverse ? ? | <0.25 ?| Bacterial ? ? ?| Discouraged ? | ? outcome ? | ?| infection ? ? ?| ? | ? SEE IMPORTANT NOTE ?| ?| unlikely ? ? ? | ? | ? + +-------- --------+ + -----+| >=0.25 ? ? ? | Bacterial ? ? ?| Encouraged ? ?| ? | ?| infection ? ? ?| ? | ? | ?| likely ? | ? | Consider treatment failure ?+ +------- ---------+ -+ if levels does not decrease | >0.5 ? | Bacterial ? ? ?| Strongly ? ? ?| appropriately ? | ?| infection very | encouraged ? ?| ? | ?| likely ? | ? | ? + +-------- --------+ + -----+ Discontinuation of antibiotics in high-acuity patients with suspected or confirmed sepsis in Adults >= 18 years of age. + +-------- --------+ + -----+|Procalcitonin |Interpretation ?|Antibiotic ? ? |Considerations ? |ng/mL ? | ?|recommendation | ? + +-------- --------+ + -----+| <0.25 ?| Bacterial ? ? ?| Strongly ? ? ?| ? | ?| infection very | discouraged ? | Overruling: ? | ?| unlikely ? ? ? | ? | ? Clinically unstable ? ? ? + +-------- --------+ + ? High risk for adverse ? ? | <0.5 or drop | Bacterial ? ? ?| Discouraged ? | ? outcome ? | >80% from ? ?| infection ? ? ?| ? | ? SEE IMPORTANT NOTE ?| highest PCT ?| unlikely ? ? ? | ? | ? | level ?| ?| ? | ? + +-------- --------+ + -----+| >=0.5 ?| Bacterial ? ? ?| Encouraged ? ?| ? | ?| infection ? ? ?| ? | ? | ?| likely ? | ? | Consider treatment failure ?+ +------- ---------+ -+ if levels does not decrease | >1.0 ? | Bacterial ? ? ?| Strongly ? ? ?| appropriately ? | ?| infection very | encouraged ? ?| ? | ?| likely ? | ? | ? + +-------- --------+ + -----+ Percentage of drop of Procalcitonin calculation for Discontinuation of antibiotics in high-acuity patients with suspected or confirmed sepsis in Adults >= 18 years of age. ? Procalcitonin highest{}-Procalcitonin current{}Delta Procalcitonin = x100% ? Procalcitonin current {} IMPORTANT NOTE: Procalcitonin may be elevated without bacterial infection by physiologic stress related to trauma, lassiter, chronic dialysis, metastatic cancer, surgery in the past seven days, malaria, some fungal infections, and some forms of vasculitis. The interpretation algorithm may not apply to patients with immunosuppression (equivalent of >10 mg of prednisone daily), HIV with CD4 cell count < 350 cells/mm3, active malignancy on systemic chemotherapy, solid organ transplant or hematopoietic stem cell transplantation, or hospital acquired pneumonia. Additionally, some clinical trials of procalcitonin have excluded patients with shock requiring vasopressor use, acute respiratory failure requiring mechanical ventilation, or those with known lung abscess/empyema. For further information please refer to:[email or web address] Lab Interpretation Abnormal (test code = 21972-5) [facility] HospitalBETA [id number] 02:04:28 Test Item Value Reference Range Interpretation Comments BOH (test code = 4.2 mmol/L 5701118893) JOSE GUADALUPE (test code = Normal Ranges: ? ? JOSE GUADALUPE) Nonfasting ? Less than 0.1 mmol/L ? ? Overnight Fast ? ? ? Less than 0.4 mmol/L ? ? Fasting (1-2 weeks) ?6-8 mmol/L Test developed and characteristics determined by [facility] Laboratory Services. [facility] HospitalBETA [id number] 02:04:28 Test Item Value Reference Range Interpretation Comments BOH (test code = 4.2 mmol/L 0145678368) JOSE GUADALUPE (test code = Normal Ranges: ? ? JOSE GUADALUPE) Nonfasting ? Less than 0.1 mmol/L ? ? Overnight Fast ? ? ? Less than 0.4 mmol/L ? ? Fasting (1-2 weeks) ?6-8 mmol/L Test developed and characteristics determined by [facility] Laboratory Services. [facility] HospitalPHOSPHORUS2021-12-12 01:44:30 Test Item Value Reference Range Interpretation Comments PHOSPHORUS (test code = 2509913992) 9.3 mg/dL 2.5-5.0 H Lab Interpretation (test code = Abnormal 72811-4) [facility] HospitalMAGNESIUM2021-12-12 01:44:30 Test Item Value Reference Range Interpretation Comments MAGNESIUM (test code = 5539653464) 1.2 mg/dL 1.7-2.4 L Lab Interpretation (test code = Abnormal 24267-7) [facility] HospitalGLYCOSYLATED HEMOGLOBIN (A1C)2021-10-26 01:28:08 Test Item Value Reference Range Interpretation Comments HGB A1C (test code = 6.5 % 4.0-5.7 H 4548-4) JOSE GUADALUPE (test code = JOSE GUADALUPE) Reference RangesNormal: <5.7%Prediabetes: 5.7 - 6.4%Diabetes: > 6.5% Lab Interpretation (test Abnormal code = 79950-6) [facility] HospitalGLYCOSYLATED HEMOGLOBIN (A1C)2021-10-26 01:28:08 Test Item Value Reference Range Interpretation Comments HGB A1C (test code = 6.5 % 4.0-5.7 H 4548-4) JOSE GUADALUPE (test code = JOSE GUADALUPE) Reference RangesNormal: <5.7%Prediabetes: 5.7 - 6.4%Diabetes: > 6.5% Lab Interpretation (test Abnormal code = 02487-1) [facility] HospitalSALICYLATE2021-12-12 01:20:41 Test Item Value Reference Range Interpretation Comments SALICYLATE (test code <10 mg/L = 7733148032) JOSE GUADALUPE (test code = JOSE GUADALUPE) Therapeutic Range: ? Analgesic and Antipyretic Use ? 20-100 mg/L ? ? Anti-Inflammatory Use ? 100-250 mg/L Toxic Range: ? Greater than 300 mg/L [facility] HospitalSALICYLATE2021-12-12 01:20:41 Test Item Value Reference Range Interpretation Comments SALICYLATE (test code <10 mg/L = 0882013278) JOSE GUADALUPE (test code = JOSE GUADALUPE) Therapeutic Range: ? Analgesic and Antipyretic Use ? 20-100 mg/L ? ? Anti-Inflammatory Use ? 100-250 mg/L Toxic Range: ? Greater than 300 mg/L [facility] [id number] 00:47:25 Test Item Value Reference Interpretation Comments Range TROPONIN I (test 0.032 ng/mL See_Comment [Automated code = 5960267442) message] The system which generated this result transmitted reference range : <=0.034. The reference range was not used to interpret this result as normal/abnormal . JOSE GUADALUPE (test code = Reference (Normal) JOSE GUADALUPE) Range (defined by the 99th percentile reference limit): <= 0.034 ng/mL Note: Cardiac troponin begins to rise 3-4 hours after the onset of ischemia. Repeat in 4-6 hours if the sample was drawn within 3-4 hours of the onset of the symptom and found normal. Diagnosis of myocardial injury is made with acute changes in cTn concentrations with at least one serial sample above the 99th percentile upper reference limit (URL), taken together with the patient's clinical presentation. Biotin has been reported to cause a negative bias, interpret results relative to patient's use of biotin. Lab Interpretation Normal (test code = 40454-6) [facility] [id number] 00:47:25 Test Item Value Reference Interpretation Comments Range TROPONIN I (test 0.032 ng/mL See_Comment [Automated code = 9487780694) message] The system which generated this result transmitted reference range : <=0.034. The reference range was not used to interpret this result as normal/abnormal . JOSE GUADALUPE (test code = Reference (Normal) JOSE GUADALUPE) Range (defined by the 99th percentile reference limit): <= 0.034 ng/mL Note: Cardiac troponin begins to rise 3-4 hours after the onset of ischemia. Repeat in 4-6 hours if the sample was drawn within 3-4 hours of the onset of the symptom and found normal. Diagnosis of myocardial injury is made with acute changes in cTn concentrations with at least one serial sample above the 99th percentile upper reference limit (URL), taken together with the patient's clinical presentation. Biotin has been reported to cause a negative bias, interpret results relative to patient's use of biotin. Lab Interpretation Normal (test code = 37914-3) [facility] METABOLIC PANEL (NA, K, CL, CO2, GLUCOSE, BUN, CREATININE, CA)2021-10-26 00:40:48 Test Item Value Reference Range Interpretation Comments NA (test code = 148 mmol/L 135-145 H 0220023488) K (test code = 5.1 mmol/L 3.5-5.0 H 6763132097) CL (test code = 126 mmol/L 98-108 H 2490265370) CO2 TOTAL (test code = 5 mmol/L 23-31 L 8212590199) AGAP (test code = 2-16 H 1761509653) BUN (test code = 83 mg/dL 7-23 H 0350867230) GLUCOSE (test code = 162 mg/dL 70-110 H 2683871382) CREATININE (test code = 5.30 mg/dL 0.50-1.04 H 6966528342) CALCIUM (test code = 7.8 mg/dL 8.6-10.6 L 2296330794) eGFR (test code = mL/min/1.73m2 1364367672) JOSE GUADALUPE (test code = JOSE GUADALUPE) Association of Glomerular Filtration Rate (GFR) and Staging of Kidney Disease* + --+ --+ ------+| GFR (mL/min/1.73 m2) ?| With Kidney Damage ?| ?Without Kidney Damage+ --------+ --------+ +| ?>90 ?| ?Stage one ?| ? Normal ?+ ---+ ---+ -------+| ?60-89 ?| ?Stage two ?| ? Decreased GFR ? + --+ --+ ------+| ?30-59 ?| ?Stage three ?| ? Stage three ? + --+ --+ ------+| ?15-29 ?| ?Stage four ? | ? Stage four ?+ ---+ ---+ -------+| ?<15 (or dialysis) ? ?| ?Stage five ? | ? Stage five ?+ ---+ ---+ -------+ *Each stage assumes the associated GFR level has been in effect for at least three months. ?Stages 1 to 5, with or without kidney disease, indicate chronic kidney disease. Notes: Determination of stages one and two (with eGFR >59mL/min/1.73 m2) requires estimation of kidney damage for at least three months as defined by structural or functional abnormalities of the kidney, manifested by either:Pathological abnormalities or Markers of kidney damage (including abnormalities in the composition of the blood or urine or abnormalities in imaging tests). Lab Interpretation Abnormal (test code = 31469-7) [facility] HospitalAC PANEL 21 + LACTIC [id number] 00:17:19 Test Item Value Reference Range Interpretation Comments PH (test code = 7.32-7.42 LL 8665718050) PCO2 LORA (test code = See_Comment L [Auto mated 5877967671) message] The sy stem which generated this result transmitted reference range : 41 - 51 mmHg. The reference range was not used to interpret this result as normal/abnormal . PO2 LORA (test code = See_Comment [Autom ated 9559502732) message] The sy stem which generated this result transmitted reference range : 25 - 40 mmHg. The reference range was not used to interpret this result as normal/abnormal . HCO3 LORA (test code = See_Comment L [Auto mated 7692486670) message] The sy stem which generated this result transmitted reference range : 24 - 28 mEq/L. The reference range was not used to interpret this result as normal/abnormal . AC VBE(BEAKER) (test mEq/L code = 6893242042) THB LORA (test code = 8.0 g/dL 12.0-16.0 LL 5830438587) %O2HB LORA (test code = 65.9 % 52.0-63.0 H 6756604838) %COHB LORA (test code = 0.3 % 0.0-1.5 0474040660) %METHB LORA (test code = 0.3 % 0.4-1.5 L 9060481785) VOL%O2 LORA (test code = 7.5 % 6.0-12.0 1104386463) NA (test code = 146 mmol/L 135-145 H 3394149077) K+ (test code = 5.1 mmol/L 3.5-5.0 H 2055316747) AC CA IONZ (test code = 4.80 mg/dL 4.50-5.30 0719746516) GLUCOSE (test code = 173 mg/dL 70-110 H 3828872299) LACTIC ACID (test code 1.59 mmol/L 0.50-2.20 = 7549629899) Lab Interpretation Abnormal (test code = 06532-9) [facility] METABOLIC PANEL (NA, K, CL, CO2, GLUCOSE, BUN, CREATININE, CA)2021-10-25 20:08:40 Test Item Value Reference Range Interpretation Comments NA (test code = 143 mmol/L 135-145 6643866264) K (test code = 5.0 mmol/L 3.5-5.0 1775470967) CL (test code = 125 mmol/L 98-108 H 8549614547) CO2 TOTAL (test code <5 23-31 L = 8073071410) AGAP (test code = Unable to 7224549361) calculate because, either,SODIUM SERUM, CHLORIDE SERUM, CO2 TOTA L or all are less than the sensitivity of the analyzer. BUN (test code = 81 mg/dL 7-23 H 4906568501) GLUCOSE (test code = 152 mg/dL 70-110 H 0047564439) CREATININE (test 5.27 mg/dL 0.50-1.04 H code = 1109476683) CALCIUM (test code = 7.9 mg/dL 8.6-10.6 L 3286457713) eGFR (test code = mL/min/1.73m2 2821483606) JOSE GUADALUPE (test code = Association of JOSE GUADALUPE) Glomerular Filtration Rate (GFR) and Staging of Kidney Disease* + -----+ --------+ +| GFR (mL/min/1.73 m2) ?| With Kidney Damage ?| ?Without Kidney Damage+ +------- +---- --+| ?>90 ?| ?Stage one ?| ? Normal ?+ ------+ ---------+--------- +| ?60-89 ?| ?Stage two ?| ? Decreased GFR ? + -----+ --------+ +| ?30-59 ?| ?Stage three ?| ? Stage three ? + -----+ --------+ +| ?15-29 ?| ?Stage four ? | ? Stage four ?+ ------+ ---------+--------- +| ?<15 (or dialysis) ? ?| ?Stage five ? | ? Stage five ?+ ------+ ---------+--------- + *Each stage assumes the associated GFR level has been in effect for at least three months. ?Stages 1 to 5, with or without kidney disease, indicate chronic kidney disease. Notes: Determination of stages one and two (with eGFR >59mL/min/1.73 m2) requires estimation of kidney damage for at least three months as defined by structural or functional abnormalities of the kidney, manifested by either:Pathological abnormalities or Markers of kidney damage (including abnormalities in the composition of the blood or urine or abnormalities in imaging tests). Lab Interpretation Abnormal (test code = 87883-1) [facility] VENOUS BLOOD [id number] 19:29:23 Test Item Value Reference Range Interpretation Comments PH (test code = 7.32-7.42 LL 8762601343) PCO2 LORA (test code = See_Comment L [Auto mated message] 3675476985) The system [employer] generated this result transmitted ref erence range: 41 - 51 mmHg. The reference r bernadine was not used to interpret this result as normal/abnor mal. PO2 LORA (test code = See_Comment [Autom ated message] 9973908608) The system [employer] generated this result transmitted ref erence range: 25 - 40 mmHg. The reference r bernadine was not used to interpret this result as normal/abnor mal. HCO3 LORA (test code = See_Comment L [Auto mated message] 5880166412) The system Red-rabbit generated this result transmitted ref erence range: 24 - 28 mEq/L. The reference r bernadine was not used to interpret this result as normal/abnor mal. AC VBE(BEAKER) (test mEq/L code = 8053504420) Lab Interpretation (test Abnormal code = 01844-2) [facility] VENOUS BLOOD [id number] 19:29:23 Test Item Value Reference Range Interpretation Comments PH (test code = 7.32-7.42 LL 1950317905) PCO2 LORA (test code = See_Comment L [Auto mated message] 5312284885) The system Red-rabbit generated this result transmitted ref erence range: 41 - 51 mmHg. The reference r bernadine was not used to interpret this result as normal/abnor mal. PO2 LORA (test code = See_Comment [Autom ated message] 0846697567) The system [employer]-rabbit generated this result transmitted ref erence range: 25 - 40 mmHg. The reference r bernadine was not used to interpret this result as normal/abnor mal. HCO3 LORA (test code = See_Comment L [Auto mated message] 1007751497) The system [employer]-rabbit generated this result transmitted ref erence range: 24 - 28 mEq/L. The reference r bernadine was not used to interpret this result as normal/abnor mal. AC VBE(BEAKER) (test mEq/L code = 2340588176) Lab Interpretation (test Abnormal code = 04303-0) [facility] METABOLIC PANEL ([id number])2021-10-25 18:04:24 Test Item Value Reference Range Interpretation Comments NA (test code = 143 mmol/L 135-145 5351146783) K (test code = 5.4 mmol/L 3.5-5.0 H 6821941010) CL (test code = 123 mmol/L 98-108 H 0819935570) CO2 TOTAL (test code <5 23-31 L = 2783672967) AGAP (test code = Unable to 3611601504) calculate because, either,SODIUM SERUM, CHLORIDE SERUM, CO2 TOTA L or all are less than the sensitivity of the analyzer. BUN (test code = 83 mg/dL 7-23 H 8523569334) GLUCOSE (test code = 148 mg/dL 70-110 H 4128070851) CREATININE (test 5.36 mg/dL 0.50-1.04 H code = 1548901397) TOTAL BILI (test 0.5 mg/dL 0.1-1.1 code = 6211141051) CALCIUM (test code = 8.4 mg/dL 8.6-10.6 L 0393024211) T PROTEIN (test code 6.7 g/dL 6.3-8.2 = 3753675620) ALBUMIN (test code = 3.8 g/dL 3.5-5.0 7457613659) ALK PHOS (test code 138 U/L 34-122 H = 4761270182) ALTv (test code = 25 U/L 5-35 1742-6) AST(SGOT) (test code 19 U/L 13-40 = 8482995664) eGFR (test code = mL/min/1.73m2 8498507401) JOSE GUADALUPE (test code = Association of JOSE GUADALUPE) Glomerular Filtration Rate (GFR) and Staging of Kidney Disease* + -----+ --------+ +| GFR (mL/min/1.73 m2) ?| With Kidney Damage ?| ?Without Kidney Damage+ +------- +---- --+| ?>90 ?| ?Stage one ?| ? Normal ?+ ------+ ---------+--------- +| ?60-89 ?| ?Stage two ?| ? Decreased GFR ? + -----+ --------+ +| ?30-59 ?| ?Stage three ?| ? Stage three ? + -----+ --------+ +| ?15-29 ?| ?Stage four ? | ? Stage four ?+ ------+ ---------+--------- +| ?<15 (or dialysis) ? ?| ?Stage five ? | ? Stage five ?+ ------+ ---------+--------- + *Each stage assumes the associated GFR level has been in effect for at least three months. ?Stages 1 to 5, with or without kidney disease, indicate chronic kidney disease. Notes: Determination of stages one and two (with eGFR >59mL/min/1.73 m2) requires estimation of kidney damage for at least three months as defined by structural or functional abnormalities of the kidney, manifested by either:Pathological abnormalities or Markers of kidney damage (including abnormalities in the composition of the blood or urine or abnormalities in imaging tests). Lab Interpretation Abnormal (test code = 81052-3) [facility] [id number] 17:51:42 Test Item Value Reference Interpretation Comments Range TROPONIN I (test 0.049 ng/mL See_Comment H [Automated code = 3065489672) message] The system which generated this result transmitted reference range : <=0.034. The reference range was not used to interpret this result as normal/abnormal . JOSE GUADALUPE (test code = Reference (Normal) JOSE GUADALUPE) Range (defined by the 99th percentile reference limit): <= 0.034 ng/mL Note: Cardiac troponin begins to rise 3-4 hours after the onset of ischemia. Repeat in 4-6 hours if the sample was drawn within 3-4 hours of the onset of the symptom and found normal. Diagnosis of myocardial injury is made with acute changes in cTn concentrations with at least one serial sample above the 99th percentile upper reference limit (URL), taken together with the patient's clinical presentation. Biotin has been reported to cause a negative bias, interpret results relative to patient's use of biotin. Lab Interpretation Abnormal (test code = 63378-0) [facility] WITH [id number] 17:50:51 Test Item Value Reference Range Interpretation Comments WBC (test code = See_Comment [Automated 6690-2) message] The sy stem which generated this result transmitted reference range : 4.30 - 11.10 10*3/?L. The reference range was not used to interpret this result as normal/abnormal . RBC (test code = See_Comment L [Automated 789-8) message] The sy stem which generated this result transmitted reference range : 3.93 - 5.25 10*6/?L. The reference range was not used to interpret this result as normal/abnormal . HGB (test code = 8.9 g/dL 11.6-15.0 L 718-7) HCT (test code = 29.0 % 35.7-45.2 L 4544-3) MCV (test code = 95.7 fL 80.6-95.5 H 787-2) MCH (test code = 29.4 pg 25.9-32.8 785-6) MCHC (test code = 30.7 g/dL 31.6-35.1 L 786-4) RDW-SD (test code = 56.3 fL 39.0-49.9 H 07136-2) RDW-CV (test code = 16.0 % 12.0-15.5 H 788-0) PLT (test code = See_Comment [Automated 777-3) message] The sy stem which generated this result transmitted reference range : 166 - 358 10*3/ ?L. The reference r bernadine was not used to interpret this result as normal/abnormal . MPV (test code = 10.5 fL 9.5-12.9 53867-4) NRBC/100 WBC (test See_Comment [Automat ed code = 5433444679) message] The system which generated this result transmitted reference range : 0.0 - 10.0 /100 WBCs. The refer ence range was not u sed to interpret th is result as normal/abnormal . NRBC x10^3 (test code See_Comment [Auto mated = 2269617698) message] The s ystem which generated this result transmitted reference range : 10*3/?L. The reference range was not used to interpret this result as normal/abnormal . GRAN MAT (NEUT) % 76.8 % (test code = 770-8) IMM GRAN % (test code 5.20 % = 6684125688) LYMPH % (test code = 8.6 % 736-9) MONO % (test code = 8.2 % 5905-5) EOS % (test code = 0.6 % 713-8) BASO % (test code = 0.6 % 706-2) GRAN MAT x10^3(ANC) 6.47 10*3/uL 1.88-7.09 (test code = 3676460367) IMM GRAN x10^3 (test 0.44 10*3/uL 0.00-0.06 H code = 5193365186) LYMPH x10^3 (test code 0.72 10*3/uL 1.32-3.29 L = 731-0) MONO x10^3 (test code 0.69 10*3/uL 0.33-0.92 = 742-7) EOS x10^3 (test code = 0.05 10*3/uL 0.03-0.39 711-2) BASO x10^3 (test code 0.05 10*3/uL 0.01-0.07 = 704-7) PARDEEP CELLS (test code 2+ See_Comment A [Auto mated = 7790-9) message] The sy stem which generated this result transmitted reference range : (none). The reference range was not used to interpret this result as normal/abnormal . Lab Interpretation Abnormal (test code = 52041-9) [facility] [id number] 17:48:40 Test Item Value Reference Range Interpretation Comments NT-proBNP (test code 97239 pg/mL See_Comment H [Autom ated = 8150457290) message] The system which generated this result transmitted reference range : <=450. The reference range was not used to interpret this result as normal/abnormal . JOSE GUADALUPE (test code = JOSE GUADALUPE) Biotin has been reported to cause a negative bias, interpret results relative to patient's use of biotin. Lab Interpretation Abnormal (test code = 50362-9) [facility] [id number] 17:48:40 Test Item Value Reference Range Interpretation Comments NT-proBNP (test code 02698 pg/mL See_Comment H [Autom ated = 3329417182) message] The system which generated this result transmitted reference range : <=450. The reference range was not used to interpret this result as normal/abnormal . JOSE GUADALUPE (test code = JOSE GUADALUPE) Biotin has been reported to cause a negative bias, interpret results relative to patient's use of biotin. Lab Interpretation Abnormal (test code = 97305-7) [facility] 17:39:41 Test Item Value Reference Range Interpretation Comments LIPASE (test code = 7069126251) 205 U/L 0-220 Lab Interpretation (test code = Normal 27135-2) [facility] 17:39:41 Test Item Value Reference Range Interpretation Comments LIPASE (test code = 1932631704) 205 U/L 0-220 Lab Interpretation (test code = Normal 66024-6) [facility] Consult Notes Date/Time Note Provider Source 2023-06-24 [id number]:37:30Associated Order(s): [facility] 12:37:30 CONSULT NEPHROLOGYFormatting of this note is [facility] different from the original.[facility] Consult Note06/24/2023 12:37 PMSubjective Admission Date: 06/21/2023 Consult Date: 06/24/23Reason for ConsultESRDRequesting ProviderLaMacario petty MDChief ComplaintChest PainHistory of Present IllnessVenessa Sanchez is a 81 year old female with past medical history of end-stage renal disease on hemodialysis (Wednesday/Wednesday/Wednesday), diabetes, hypertension, hyperlipidemia, atrial fibrillation on anticoagulation, active smoker, IBS, COVID-19 pneumonia who presents to the ED secondary to feeling lightheadedness, palpitations, and left shoulder pain for the past day shortly after dialysis. Associated symptoms: chest pain. She was transferred to [facility] for higher level of care. She was taken to the [facility] according to their report. Consult has been called for further management of end-stage renal disease. Past Medical History: Diagnosis Date Carotid artery stenosis ESRD (end stage renal disease) dialysis MWF HLD (hyperlipidemia) HTN (hypertension) PNA (pneumonia) Smoker Type 2 diabetes mellitus No past surgical history on file.Medications Prior to Admission Medication Sig Dispense Refill Last Dose amLODIPine 5 mg tablet Take 1 tablet by mouth in the morning. SITagliptin phosphate (JANUVIA) 50 mg tablet Take 1 tablet by mouth in the morning. Vitamin B-12 1,000 mcg tablet Take 1 tablet by mouth in the morning. apixaban 2.5 mg tablet Take 1 tablet by mouth in the morning and 1 tablet in the evening. sevelamer 800 mg tablet Take 1 tablet by mouth in the morning and 1 tablet at noon and 1 tablet in the evening. Take with meals. colesevelam 625 mg tablet Take 1 tablet by mouth in the morning and 1 tablet in the evening. Take with meals. sodium bicarbonate 650 mg tablet Take 1 tablet by mouth in the morning and 1 tablet at noon and 1 tablet in the evening. Take with meals. Cholecalciferol, Vitamin D3, (VITAMIN D3) 125 mcg (5,000 unit) tablet Take 1 tablet by mouth in the morning. 12/27/2022 metoprolol succinate XL 50 mg 24 hr tablet Take 50 mg by mouth in the morning and 50 mg in the evening. 12/27/2022 Current Facility-Administered Medications Medication Dose Route Frequency Last Rate Last Admin [START ON 06/25/2023] clopidogreL (PLAVIX) 300 mg tablet 300 mg 300 mg Oral ONCE [START ON 06/26/2023] clopidogreL (PLAVIX) 75 mg tablet 75 mg 75 mg Oral DAILY amLODIPine (NORVASC) tablet 5 mg 5 mg Oral QHS 5 mg at 06/23/232015 glucagon (GLUCAGEN DIAGNOSTIC KIT) injection 1 mg 1 mg Intramuscular PRN sevelamer (RENVELA) tablet 1,600 mg 1,600 mg Oral TID MEALS 1,600 mg at 06/23/231651 Sliding Scale Insulin - Lispro (HumaLOG) Subcutaneous TID MEALS+HS amiodarone (PACERONE) tablet 200 mg 200 mg Oral TID 200 mg at 06/23/232015 aspirin EC tablet 81 mg 81 mg Oral DAILY 81 mg at 06/24/23 0906 atorvastatin (LIPITOR) tablet 40 mg 40 mg Oral QHS 40 mg at 06/23/232015 heparin (1,000 unit/mL, 10 mL vial) 3,000 Units Slow IV Push FOR REBOLUSING heparin 25,000 Units/250 mL (Premixed Bag) in 0.45 % NS 0-2,050 Units/hr IV Infusion TITRATE Paused at 06/24/23 0920 ondansetron (ZOFRAN (PF)) injection 4 mg 4 mg Slow IV Push Q6HPRN metoprolol succinate XL (TOPROL XL) tablet 50 mg 50 mg Oral BID 50 mg at 06/23/232015 vitamin B-12 (CYANOCOBALAMIN) tablet 1,000 mcg 1,000 mcg Oral DAILY 1,000 mcg at 06/23/23 0814 No Known AllergiesNo family history on file.Social History Socioeconomic History Marital status: Spouse name: Not on file Number of children: Not on file Years of education: Not on file Highest education level: Not on file Occupational History Not on file Tobacco Use Smoking status: Every Day Packs/day: 1.50 Years: 60.00 Additional pack years: 0.00 Total pack years: 90.00 Types: Cigarettes Passive exposure: Current Smokeless tobacco: Never Substance and Sexual Activity Alcohol use: Not Currently Drug use: Never Sexual activity: Not on file Other Topics Concern Not on file Social History Narrative Not on file Social Determinants of Health Financial Resource Strain: Low Risk (06/23/2023) Overall Financial Resource Strain (CARDIA) Difficulty of Paying Living Expenses: Not hard at all Food Insecurity: No Food Insecurity (06/23/2023) Hunger Vital Sign Worried About Running Out of Food in the Last Year: Never true Ran Out of Food in the Last Year: Never true Transportation Needs: No Transportation Needs (06/23/2023) PRAPARE - Transportation Lack of Transportation (Medical): No Lack of Transportation (Non-Medical): No Physical Activity: Inactive (06/23/2023) Exercise Vital Sign Days of Exercise per Week: 0 days Minutes of Exercise per Session: 0 min Stress: Not on file Social Connections: Unknown (06/23/2023) Social Connection and Isolation Panel [NHANES] Frequency of Communication with Friends and Family: More than three times a week Frequency of Social Gatherings with Friends and Family: Not on file Attends Mosque Services: Not on file Active Member of Clubs or Organizations: Not on file Attends Club or Organization Meetings: Not on file Marital Status: Intimate Partner Violence: Not on file Housing Stability: Low Risk (06/23/2023) Housing Stability Vital Sign Unable to Pay for Housing in the Last Year: No Number of Places Lived in the Last Year: 1 Unstable Housing in the Last Year: No Review of SystemsA 12 point ROS was performed and pertinent positives as per HPI. Objective Physical ExamGeneral: Appropriate for age, no acute distress, well-developed and well-nourished. HENT: Head: Normocephalic and atraumatic. Eyes: Conjunctivae and EOM are normal. Pupils are equal, round, and reactive to light. Neck: Neck supple. No jugular venous distentionCardiovascular: Normal rate, rhythm and heart sounds. No gallop, rub or murmur.Chest: CTA. No wheezes or rales. Abdominal: Soft. BS are normal. Extremities: Normal range of motion, no edema, tenderness or deformity. Neurological: Alert and oriented. Cranial nerves intact Labs/Radiology/Diagnostics.currCMPNA (mmol/L) Date Value 06/24/2023 137 06/23/2023 137 06/22/2023 138 06/22/2023 138 06/21/2023 136 K (mmol/L) Date Value 06/24/2023 4.1 06/23/2023 4.4 06/22/2023 4.2 06/22/2023 4.2 06/21/2023 4.0 CALCIUM (mg/dL) Date Value 06/24/2023 8.2 (L) 06/23/2023 8.0 (L) 06/22/2023 8.2 (L) 06/22/2023 8.2 (L) 06/21/2023 9.1 CL (mmol/L) Date Value 06/24/2023 105 06/23/2023 101 06/22/2023 97 (L) 06/22/2023 103 06/21/2023 98 BUN (mg/dL) Date Value 06/24/2023 39 (H) 06/23/2023 58 (H) 06/22/2023 41 (H) 06/22/2023 32 (H) 06/21/2023 27 (H) CREATININE (mg/dL) Date Value 06/24/2023 3.06 (H) 06/23/2023 3.61 (H) 06/22/2023 3.26 (H) 06/22/2023 2.65 (H) 06/21/2023 2.05 (H) GLUCOSE (mg/dL) Date Value 06/24/2023 123 (H) 06/23/2023 144 (H) 06/22/2023 156 (H) 06/22/2023 115 (H) 06/21/2023 169 (H) CO2 TOTAL (mmol/L) Date Value 06/24/2023 22 (L) 06/23/2023 25 06/22/2023 29 06/22/2023 22 (L) 06/21/2023 26 ALBUMIN (g/dL) Date Value 06/21/2023 4.0 06/04/2023 4.0 12/27/2022 3.5 05/22/2022 3.3 (L) 05/19/2022 2.9 (L) 05/19/2022 2.9 (L) T PROTEIN (g/dL) Date Value 06/21/2023 6.8 06/04/2023 6.9 12/27/2022 6.1 (L) 05/22/2022 5.5 (L) 05/19/2022 5.0 (L) TOTAL BILI (mg/dL) Date Value 06/21/2023 0.5 06/04/2023 0.5 12/27/2022 0.7 05/22/2022 0.5 05/19/2022 0.4 BILI UNCON (mg/dL) Date Value 05/19/2022 0.1 05/19/2022 0.0 (L) 11/07/2021 0.0 (L) BILI CONJ (mg/dL) Date Value 05/19/2022 0.0 05/19/2022 0.0 11/07/2021 0.0 ALTv (U/L) Date Value 06/21/2023 28 06/04/2023 28 12/27/2022 17 05/22/2022 140 (H) 05/19/2022 58 (H) AST(SGOT) (U/L) Date Value 06/21/2023 26 06/04/2023 19 12/27/2022 19 05/22/2022 88 (H) 05/19/2022 70 (H) ALK PHOS (U/L) Date Value 06/21/2023 82 06/04/2023 76 12/27/2022 151 (H) 05/22/2022 69 05/19/2022 71 PHOSPHORUS Date Value Ref Range Status 06/24/2023 4.5 2.5 - 5.0 mg/dL Final CBC withoutdiffWBC (10*3/?L) Date Value 06/24/2023 5.65 06/23/2023 6.81 06/21/2023 8.44 06/04/2023 5.84 12/29/2022 5.18 HGB (g/dL) Date Value 06/24/2023 9.5 (L) 06/23/2023 9.3 (L) 06/21/2023 10.8 (L) 06/04/2023 11.6 12/29/2022 8.9 (L) HCT (%) Date Value 06/24/2023 30.0 (L) 06/23/2023 28.5 (L) 06/21/2023 32.7 (L) 06/04/2023 35.3 (L) 12/29/2022 26.9 (L) MCV (fL) Date Value 06/24/2023 94.3 06/23/2023 95.3 06/21/2023 94.0 06/04/2023 92.7 12/29/2022 90.9 PLT (10*3/?L) Date Value 06/24/2023 141 (L) 06/23/2023 144 (L) 06/21/2023 172 06/04/2023 174 12/29/2022 160 (L) PROTEIN (no units) Date Value 12/29/2022 500 mg/dL (A) PH (no units) Date Value 12/29/2022 8.0 GLU U QUAL (no units) Date Value 12/29/2022 500 mg/dL (A) KETONES (no units) Date Value 12/29/2022 20 mg/dL (A) BILIRUBIN (no units) Date Value 12/29/2022 Negative No results found for: "UBLOOD"No results found for: "UUROBILIN"LEUK JEY (no units) Date Value 12/29/2022 25/uL (A) NITRITE (no units) Date Value 12/29/2022 Negative SP GRAVITY (no units) Date Value 12/29/2022 1.012 No final results containing an impression from the past 48 hours were found.Problem ListNo problems updated.Impression and PlanEnd-stage renal disease on dialysis on a Wednesday scheduleA-fib with RVR now rate controlledHypertensionDiabetesCoronary artery diseasePatient does not need dialysis today and tomorrow is her regular dialysis. Will write the orders for dialysis for tomorrow. Her consent is on file.Finally thank you very much for this consult, I will be happy to follow this patient with you. Charles Estrada MD [facility] NephrologyAdjnovant health [facility] packer insulation [facility]: 01780-7Byzrygn sgonLR5699-71-72K18:41:59Consult [id number]| [id number] for patient qnco69528-7Duipzjt noteLNIM-NEPHROLOGY STAFFIM-NEPHROLOGY STAFF[address] Na[id number] WPMFLUSMAOORIO6316-93-14G67:41:591.2.840.114 350.1.72.3.15|1.2.840.437800.1.13.104.2.7.2. [id number] 2023-06-22 6730-15-65X09:21:12Associated Order(s): [facility] - :21:12 CONSULT CARDIOLOGYFormatting of this note is Health different from the original.[facility] Cardiology ConsultPCP: Dariel Gandhi Date of Service: 3CHIEF COMPLAINT/reason for consult: Atrial fibrillation, troponin elevationHISTORY OF PRESENT ILLNESSThis is an 83 years old female with past med history of type 2 diabetes, hypertension, hyperlipidemia, cigarette smoker, end-stage renal disease on hemodialysis etc. The patient presented to [facility] due to palpitations during dialysis. She was found to be in rapid atrial fibrillation which soon converted. Similar episodes occurred in May 2023 and the EKG showed atrial fibrillation with RVR too. During the episodes, she did have pain in the jaw and shoulder blades. Troponin was initially negative. Then peaked at 3.15. Echocardiogram showed normal ejection fraction and wall motion.PAST MEDICAL HISTORY Past Medical History: Diagnosis Date Carotid artery stenosis ESRD (end stage renal disease) dialysis MWF HLD (hyperlipidemia) HTN (hypertension) PNA (pneumonia) Smoker Type 2 diabetes mellitus No past surgical history on file.No family history on file.ALLERGIESNo Known AllergiesMEDICATIONSNo current facility-administered medications on file prior to encounter. Current Outpatient Medications on File Prior to Encounter Medication Sig Dispense Refill amLODIPine 5 mg tablet Take 1 tablet by mouth in the morning. SITagliptin phosphate (JANUVIA) 50 mg tablet Take 1 tablet by mouth in the morning. Vitamin B-12 1,000 mcg tablet Take 1 tablet by mouth in the morning. apixaban 2.5 mg tablet Take 1 tablet by mouth in the morning and 1 tablet in the evening. sevelamer 800 mg tablet Take 1 tablet by mouth in the morning and 1 tablet at noon and 1 tablet in the evening. Take with meals. colesevelam 625 mg tablet Take 1 tablet by mouth in the morning and 1 tablet in the evening. Take with meals. sodium bicarbonate 650 mg tablet Take 1 tablet by mouth in the morning and 1 tablet at noon and 1 tablet in the evening. Take with meals. Cholecalciferol, Vitamin D3, (VITAMIN D3) 125 mcg (5,000 unit) tablet Take 1 tablet by mouth in the morning. metoprolol succinate XL 50 mg 24 hr tablet Take 50 mg by mouth in the morning and 50 mg in the evening. SOCIAL HISTORYSocial History Socioeconomic History Marital status: Tobacco Use Smoking status: Every Day Packs/day: 1.50 Years: 60.00 Additional pack years: 0.00 Total pack years: 90.00 Types: Cigarettes Passive exposure: Current Smokeless tobacco: Never Substance and Sexual Activity Alcohol use: Not Currently Drug use: Never Social Determinants of Health Financial Resource Strain: Low Risk (12/28/2022) Overall Financial Resource Strain (CARDIA) Difficulty of Paying Living Expenses: Not hard at all Food Insecurity: No Food Insecurity (12/28/2022) Hunger Vital Sign Worried About Running Out of Food in the Last Year: Never true Ran Out of Food in the Last Year: Never true Transportation Needs: No Transportation Needs (12/28/2022) PRAPARE - Transportation Lack of Transportation (Medical): No Lack of Transportation (Non-Medical): No Physical Activity: Inactive (12/28/2022) Exercise Vital Sign Days of Exercise per Week: 0 days Minutes of Exercise per Session: 0 min Social Connections: Unknown (12/28/2022) Social Connection and Isolation Panel [NHANES] Frequency of Communication with Friends and Family: More than three times a week Marital Status: REVIEW OF SYSTEMSAt least 10 systems reviewed, negative except as mentioned in HPI PHYSICAL EXAMINATIONVitals: 06/22/23 1700 06/22/23 1800 06/22/23 1900 06/22/231999 BP: (!) 159/63 (!) 144/48 (!) 158/55 Pulse: 74 73 70 70 Resp: 18 16 Temp: 36.4 ?C (97.5 ?F) TempSrc: Temporal Artery SpO2: 99% 95% 95% 94% Weight: 49.5 kg (109 lb 1.6 oz) Height: 1.626 m (5' 4") Constitutional: alert and oriented x 3 (person, place and date/time); no apparent distressENT: normocephalic atraumatic, supple, no lymphadenopathy, no bruits, no JVDLungs: clear to auscultation bilaterallyCardiovascular: S1, S2 normal, regular; no murmurs, rubs or gallopsGI: soft; non-tender; non-distended; normoactive bowel soundsGU: not examinedMusculoskeletal: Extremities: no clubbing, cyanosis, or edemaSkin: no rashesNeuro: no focal deficitsLABS - reviewed pertinent labs as below:CBC BMP PT/INR WBC (10*3/?L) Date Value 06/21/2023 8.44 NA (mmol/L) Date Value 06/22/2023 138 No results found for: "PT" PLT (10*3/?L) Date Value 06/21/2023 172 K (mmol/L) Date Value 06/22/2023 4.2 INR (no units) Date Value 06/22/2023 1.1 HGB (g/dL) Date Value 06/21/2023 10.8 (L) BUN (mg/dL) Date Value 06/22/2023 41 (H) HCT (%) Date Value 06/21/2023 32.7 (L) CREATININE (mg/dL) Date Value 06/22/2023 3.26 (H) LIPID PROFILE GLUCOSE (mg/dL) Date Value 06/22/2023 156 (H) No results found for: "CHOL" TSH No results found for: "LDL" TSH (mIU/L) Date Value 06/22/2023 1.43 CARDIAC ENZYMES No results found for: "HDL" CK (U/L) Date Value 05/18/2022 56 No results found for: "TRIG" LFTs No results found for: "CKMB" AST(SGOT) (U/L) Date Value 06/21/2023 26 TROPONIN I (ng/mL) Date Value 06/22/2023 2.610 (H) ALTv (U/L) Date Value 06/21/2023 28 No results found for: "BNP" IMAGING - reviewed, pertinent results as below: Chest h-znc-emesvJBP: Atrial fibrillation with rapid ventricular responseASSESSMENT/PLANPrincipal Problem: DizzinessActive Problems: NSTEMI (non-ST elevated myocardial infarction) Paroxysmal atrial fibrillation with RVR ESRD (end stage renal disease) on dialysis Cigarette smoker Primary hypertension Other hyperlipidemia Type 2 diabetes mellitus without complication, without long-term current use of insulin Pulmonary hypertension Mitral stenosis Coronary artery calcification Elevated brain natriuretic peptide (BNP) levelParoxysmal atrial fibrillation with rapid ventricular response-this is the second episode since May 2023. She is already on metoprolol. There is a benefit for rhythm control. Recommend to initiate amiodarone loading 200 mg 3 times daily for 1 week, followed by 200 mg twice daily for a week, then 200 mg daily. Continue anticoagulation given elevated MRK4XX0-LBBj score.Troponin elevation-occurred in the setting of rapid atrial fibrillation. However she did have chest pain. Mild ST depression on EKG. Although echo showed ejection fraction and wall motion, the level of troponin elevation is higher than expected for type II myocardial infarction even in the setting of end-stage renal disease. She has multiple cardiac risk factors including age, chcf smoking, end-stage renal disease etc. CT scan showed significant coronary artery calcification. Although this could be a case of type II myocardial infarction, I suspect she likely has underlying obstructive CAD. Recommend to initiate IV heparin anticoagulation. Continue aspirin. Continue metoprolol. Start high intensity statins. Discussed with family and patient left heart cath with possible intervention. They will discuss and make a final decision tomorrow.Coronary artery calcification-I reviewed her CT scan of the chest. Recommend aspirin and high intensity Lipitor.Pulm hypertension-likely due to end-stage renal disease, mitral valve disease and diastolic dysfunction.BNP elevation-no evidence of clinical volume overload by exam and chest x-ray. Continue hemodialysis for volume control.Cigarette smoker-discussed smoking cessation.Hypertension-fluctuating blood pressure. Continue metoprolol.Mitral stenosis-calcific etiology. Continue metoprolol for rate control.Hyperlipidemia-check fasting lipid panel. Continue high intensity Lipitor.Thank you for allowing us to participate in the care of your patient. Please feel free to contact us for any questions or if we can be of further assistance.Darnell Gaines MD, [facility], FASEAssociate ProfessorDivision of Cardiovascular MedicineUnMatagorda Regional Medical Center [address]-1Ctulnao gwueWH6288-40-93R31:30:41Consult [id number]| [id number] for patient pbuq70349-3Ctbmbxd noteLNUT[address] Cz[id number] YYDWEMSWUFUXAX3515-70-66H15:30:411.2.840.114 350.1.72.3.15|1.2.840.902999.1.13.104.2.7.2. [id number] 2023-06-22 8722-08-24S06:39:47Associated Order(s): [facility] - :39:47 CONSULT NEPHROLOGYFormatting of this note is Health different from the original.Consultation requested by: IM/Hospitalist, Dr. Bright for Consultation: ESRDDate of Service: 06/22/23History of Present Illness:Venessa Sanchez is a elderly female with hx of HTN, ESRDD on iHD MWF at [facility] with last HD yesterday, a hx of chronic tobacco use, a hx of parox Afib on Eliquis anticoagulation who presented from home to ER yesterday early evening due to palpitations without CP, dyspnea but with lightheadedness and dizziness reported. She was found to be in Afib with RVR, she did appear to spontaneously convert. She is in NSR this AM, she denies any current acute complaints.PAST MEDICAL HISTORY Past Medical History: Diagnosis Date Carotid artery stenosis ESRD (end stage renal disease) dialysis MWF HLD (hyperlipidemia) HTN (hypertension) PNA (pneumonia) Smoker Type 2 diabetes mellitus History reviewed. No pertinent surgical history.No family history on file.Allergies: Patient has no known allergies.MEDICATIONSHospital Medications:Current Facility-Administered Medications Medication Dose Route Frequency Last Rate Last Admin acetaminophen (TYLENOL) tablet 650 mg 650 mg Oral Q6HPRN amLODIPine (NORVASC) tablet 5 mg 5 mg Oral DAILY 5 mg at 12/28/22 08 apixaban (ELIQUIS) tablet 2.5 mg 2.5 mg Oral BID 2.5 mg at 12/28/22821 cholecalciferol (vitamin D3) tablet 5,000 Units 5,000 Units Oral DAILY 5,000 Units at 12/28/22821 heparin 1,000 unit/mL injection 1,500 Units 1,500 Units Slow IV Push DIALYSIS ONCE - PT ROOM ipratropium-albuteroL (DUONEB) 0.5 mg-3 mg(2.5 mg base)/3 mL nebulizer solution 3 mL 3 mL Inhalation QIDPRN ipratropium-albuteroL (DUONEB) 0.5 mg-3 mg(2.5 mg base)/3 mL nebulizer solution 3 mL 3 mL Inhalation QID 3 mL at 12/28/22 0626 metoprolol succinate XL (TOPROL XL) tablet 50 mg 50 mg Oral BID 50 mg at 12/28/22 0822 ondansetron (ZOFRAN (PF)) injection 4 mg 4 mg Slow IV Push Q6HPRN sevelamer (RENVELA) tablet 800 mg 800 mg Oral TID MEALS 800 mg at 12/28/22 0822 SITagliptin phosphate (JANUVIA) tablet 50 mg 50 mg Oral DAILY 50 mg at 12/28/22 0822 traMADoL (ULTRAM) tablet 50 mg 50 mg Oral Q8HPRN vitamin B-12 (CYANOCOBALAMIN) tablet 1,000 mcg 1,000 mcg Oral DAILY 1,000 mcg at 12/28/22 0822 SOCIAL HISTORYSocial History Tobacco Use Smoking Status Every Day Packs/day: 1.50 Years: 60.00 Pack years: 90.00 Types: Cigarettes Smokeless Tobacco Never Social History Substance and Sexual Activity Alcohol Use Not Currently Social History Substance and Sexual Activity Drug Use Never REVIEW OF SYSTEMSROS:Constitutional: No fevers or chills reportedVision: No double vision or blurry vision reportedENT: No sinusitis or dysphagia reportedResp: Some chronic interstitial lung changesCVS: No CP reportedGI: No N/V/DGU: No dysuria or hematuria reportedHeme: No hx of DVTs or PE reported. Chronic anemiaEndo: DM, no thyroid issues reportedNeuro: No hx of CVA or seizuresPsych: No reports of depression or anxietyDerm: No reports of rashes or ulcersAllergic: No reports of anaphylaxis or urticaria PHYSICAL EXAMINATIONVitals: 06/22/23 1125 BP: Pulse: Resp: Temp: 35.1 ?C (95.2 ?F) SpO2: PE:Gen: NAD, elderlyHEENT: Atraumatic, sclera anicteric, hard of hearingNeck: SuppleResp: b/l air entry, no rhonchi or wheezes appreciatedCVS: Non tachy, cardiac murmur presentGI: Soft, ND, NTGU: barone not presentExt: No significant LE edema, Lt UE AVF with thrill and bruit, Derm: No skin rashes or ulcers notedNeuro: Awake, alert, responsive, non encephalopathic, non focalLABORATORYReviewed in the EMRCHART REVIEW: ASSESSMENT and PLANGladys Daniel is a 82 year old female with PMH as listed above, consulted for above mentioned.ESRD on iHD MWF at [facility], s/p HD yesterday, metab profile stable.Afib with RVR on admission, converted, underlying parox Afib on Eliquis. Event happened post HD, lytes acceptable. Prior echo shows severely dilated LA. Initial troponin leak likely due to demand ischemia with the Afib with RVR, repeat troponin betterTTE in Dec also revealed some mild /ARChronic mild resp insufficiency with possible chronic interstitial lung disease based on past and latest imaging, f/u chest CT reportChronic labile HTN -monitor BP closelyNaveed MD Minh, FASN 35283-2Hgebflu mwqqMZ0738-43-08B52:47:33Consult noteTXT1.2.840.218007.1.13.104.2.7.2.524078| [id number] for patient ipiq83557-3Xmfoizf noteLNUT26 [address] StreetCo[id number] EORIJWPVIKBEBG0311-64-12O58:47:331.2.840.114 350.1.72.3.15|1.2.840.858054.1.13.104.2.7.2. [id number] History and Physical Notes Date/Time Note Provider Source 2023-06-21 22:10:22 8768-26-37B13:10:22Formatting of this note [facility] is different from the original.[facility] ADMIT H&PDate of Service: 06/21/2023HIEF COMPLAINT: lightheadedness, palpitationsHistory of Present Wevwvgz21 year old female with past medical history of end-stage renal disease on hemodialysis (Wednesday/Wednesday/Wednesday), diabetes, hypertension, hyperlipidemia, atrial fibrillation on anticoagulation, active smoker, IBS, COVID-19 pneumonia who presents to the ED secondary to feeling lightheadedness, palpitations, and left shoulder pain for the past day shortly after dialysis. Associated symptoms: chest pain.PAST MEDICAL HISTORY Past Medical History: Diagnosis Date Carotid artery stenosis ESRD (end stage renal disease) dialysis MWF HLD (hyperlipidemia) HTN (hypertension) PNA (pneumonia) Smoker Type 2 diabetes mellitus Past Surgical HistoryHip arthroplasty Past Family HistoryNoncontributoryALLERGIESNo Known AllergiesMEDICATIONSNo current facility-administered medications on file prior to encounter. Current Outpatient Medications on File Prior to Encounter Medication Sig Dispense Refill amLODIPine 5 mg tablet Take 1 tablet by mouth in the morning. SITagliptin phosphate (JANUVIA) 50 mg tablet Take 1 tablet by mouth in the morning. Vitamin B-12 1,000 mcg tablet Take 1 tablet by mouth in the morning. apixaban 2.5 mg tablet Take 1 tablet by mouth in the morning and 1 tablet in the evening. sevelamer 800 mg tablet Take 1 tablet by mouth in the morning and 1 tablet at noon and 1 tablet in the evening. Take with meals. colesevelam 625 mg tablet Take 1 tablet by mouth in the morning and 1 tablet in the evening. Take with meals. sodium bicarbonate 650 mg tablet Take 1 tablet by mouth in the morning and 1 tablet at noon and 1 tablet in the evening. Take with meals. Cholecalciferol, Vitamin D3, (VITAMIN D3) 125 mcg (5,000 unit) tablet Take 1 tablet by mouth in the morning. metoprolol succinate XL 50 mg 24 hr tablet Take 50 mg by mouth in the morning and 50 mg in the evening. I attest that the foregoing medication list in the medical record is true, accurate and complete to the best of my knowledge.SOCIAL HISTORYSocial History Socioeconomic History Marital status: Tobacco Use Smoking status: Every Day Packs/day: 1.50 Years: 60.00 Total pack years: 90.00 Types: Cigarettes Passive exposure: Current Smokeless tobacco: Never Substance and Sexual Activity Alcohol use: Not Currently Drug use: Never Social Determinants of Health Financial Resource Strain: Low Risk (12/28/2022) Overall Financial Resource Strain (CARDIA) Difficulty of Paying Living Expenses: Not hard at all Food Insecurity: No Food Insecurity (12/28/2022) Hunger Vital Sign Worried About Running Out of Food in the Last Year: Never true Ran Out of Food in the Last Year: Never true Transportation Needs: No Transportation Needs (12/28/2022) PRAPARE - Transportation Lack of Transportation (Medical): No Lack of Transportation (Non-Medical): No Physical Activity: Inactive (12/28/2022) Exercise Vital Sign Days of Exercise per Week: 0 days Minutes of Exercise per Session: 0 min Social Connections: Unknown (12/28/2022) Social Connection and Isolation Panel [NHANES] Frequency of Communication with Friends and Family: More than three times a week Marital Status: Review of Systems Constitutional: Negative. HENT: Positive for rhinorrhea. Negative for congestion, dental problem, drooling, ear discharge, ear pain, facial swelling, hearing loss, mouth sores, nosebleeds, postnasal drip, sinus pressure, sneezing, sore throat, tinnitus, trouble swallowing and voice change. Eyes: Negative. Respiratory: Negative. Breasts: Negative. Cardiovascular: Negative. Gastrointestinal: Positive for abdominal pain (lower abdominal pain) and nausea. Negative for abdominal distention, anal bleeding, blood in stool, constipation, diarrhea, rectal pain and vomiting. Genitourinary: Negative. Musculoskeletal: Negative. Negative for neck pain and neck stiffness. Skin: Negative. Neurological: Positive for weakness and headaches. Negative for dizziness, tremors, seizures, syncope, facial asymmetry, speech difficulty, light-headedness and numbness. Psychiatric/Behavioral: Negative. Endocrine: Endocrine negativePHYSICAL EXAMINATIONVitals: 06/21/23 19406/21/23199906/21/23 2100 06/21/23 2200 BP: 104/71 99/66 (!) 146/57 Pulse: 125 124 Resp: (!) 32 28 19 Temp: TempSrc: SpO2: 96% 96% Weight: 51 kg (112 lb 6.4 oz) Height: 1.626 m (5' 4") Physical ExamVitals and nursing note reviewed. Constitutional: General: She is not in acute distress. Appearance: Normal appearance. She is not ill-appearing, toxic-appearing or diaphoretic. HENT: Head: Normocephalic and atraumatic. Right Ear: External ear normal. Left Ear: External ear normal. Nose: Nose normal. No congestion. Mouth/Throat: Pharynx: No oropharyngeal exudate. Eyes: General: No scleral icterus. Extraocular Movements: Extraocular movements intact. Conjunctiva/sclera: Conjunctivae normal. Pupils: Pupils are equal, round, and reactive to light. Cardiovascular: Rate and Rhythm: Normal rate and regular rhythm. Heart sounds: No murmur heard. No friction rub. No gallop. Pulmonary: Effort: Pulmonary effort is normal. No respiratory distress. Breath sounds: Normal breath sounds. No wheezing or rales. Chest: Chest wall: No tenderness. Abdominal: General: Abdomen is flat. Bowel sounds are normal. There is no distension. Palpations: Abdomen is soft. Tenderness: There is no abdominal tenderness. There is no guarding. Musculoskeletal: General: Normal range of motion. Cervical back: Normal range of motion and neck supple. Right lower leg: No edema. Left lower leg: No edema. Comments: Left upper extremity: noted thrills of the dialysis graft Skin: General: Skin is warm and dry. Neurological: Mental Status: She is alert. Psychiatric: Mood and Affect: Mood normal. Behavior: Behavior normal. Thought Content: Thought content normal. Judgment: Judgment normal. LABS - reviewed pertinent labs as below:ReviewedIMAGING - reviewed, pertinent results as below: EXAM: XR CHEST 1 VW HISTORY: 83 years-old Female; Provided indication: chest pain . [facility] Presenting with lightheadedness after dialysis. TECHNIQUE: Single frontal view of the chest. COMPARISON: Radiograph dated 06/04/2023 FINDINGS: Hyperexpanded lung volumes. Diffuse interstitial prominence without overtedema. No focal consolidations. Questionable trace left pleural effusion.No pneumothorax. The cardiomediastinal silhouette is normal in size accounting fortechnique. Aortic arch calcifications. No focal osseous lesions or acute osseous findings are detected. IMPRESSION Background changes of COPD. Bilateral diffuse interstitial prominence without overt edema. No focalconsolidations. Questionable trace left pleural effusion. XR SHOULDER 2+ VW LEFT HISTORY: shoulder pain COMPARISON: None available FINDINGS: Imaging of the shoulder demonstrates severe osteopenia. Alignment of theshoulder girdle articulations is anatomic. 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 No lytic or blastic bony lesion is noted. Noaggressive bony destructive change or periosteal reaction is appreciated.No acute bony abnormality is demonstrated. Calcified plaque outlines theaortic arch. Vascular calcifications are partially profiled over thecardiac silhouette. IMPRESSION Severe osteopenia. No acute fracture, erosion or dislocation.EKG: atrial fibrillationASSESSMENT/PLANGladys Daniel is a 83 year old female with PMH as listed above, admitted to the hospital with:Atrial fibrillation with RVR: shortly after dialysis. Now converted and appears asymptomatic.-- Will continue with metoprolol for rate control and eliquis for anticoagulation-- Will check TSH-- Will trend troponin levels2. Diabetes: controlled-- Will continue with januvia as well as insulin sliding scale3. ESRD:-- Consult nephrology for dialysis4. HTN:-- Will continue the metoprolol for now5. Current smoker: spoke for greater than 3 minutes about smoking cessation. At this time, patient refuse smoking cessation therapy.Prophylaxis: DVT- On EliquisCode Status: addressed: FCEstimated LOS: This inpatient admission will likely require greater than or equal to 2 Midnights. Management is not feasible as an outpatient and there is concern for adverse outcomes if not managed in an inpatient setting. Advance care planning discussed for 18 mins with patient at bedside.Surrogate decision maker: Erick Jeffers (child) - 38572-3Dgeqqmi and physical [id number]:24:38History and physical noteTXT1.2.840.321861.1.13.104.2.7.2.043521 |[id number] for patient faot28431-2Yoxmord and physical noteLNUTMBMOUNTAIN VIEW REGIONAL MED[facility] - Koefjd231 University Sf[id number] BXZWAXPGMVAWWHL2107-63-82I04:24:381.2.840.1 59995.1.72.3.15|1.2.840.221622.1.13.104.2.7 .[id number] Procedure Notes Date/Time Note Provider Source 2023-06-24 12:13:55 0601-63-95I31:13:55Procedure(s IM-INTERVENTI [facility] ): CORONARY ANGIOGRAPHY; LEFT CARDIOLOGY STAFF HEART CATH; CORONARY ATHERECTOMY - LITHOTRIPSY; CORONARY STENTPre-Procedure Diagnose(s): NSTEMI (non-ST elevated myocardial infarction)Post-Procedure Diagnose(s): NSTEMI (non-ST elevated myocardial infarction) Left Heart Cath/Coronary AngiographyDate of Service: 06/24/2023 12:17 PMFellow: Dr. Chan: Donato. Present for the entire case Indication/Diagnosis: ACS ([place]/NSTEMI)Consent source: selfConsent type: indications/complications discussed with patient/legal guardian; written consent obtainedTime out completed: yesAseptic technique: ChlorprepLocal Anesthesia: 1% lidocaine without epinephrineSedation: fentanyl 12.5 mcg, Versed 0.5 mgAccess site: right femoral arteryClosure Method: TR BandSterile dressing: yesComplications: noneProcedures:The patient arrived the ammunition assembly ii laborer in stable condition. After patient identification/verification, the patient was thereafter transferred onto the ammunition assembly ii laborer table. After administering sedation, Time Out was done. Using Seldinger technique, the right femoral artery was accessed using a micropuncture kit. The access was upgraded a 6 Fr sheath. A J wire was then used to advance a 5 Fr JL 4.0 catheter to the ascending aorta. The JL 4.0 catheter was then used to cannulate the LM. Selective coronary angiography was done using several views. The JL catheter was then exchanged for a 5 Fr JR 4.0 catheter. A J wire was then used to cross the AV, and the catheter was advanced into the LV, where selective LHC/LVEDP was measuredThe JR 4.0 catheter was then used to cannulate the RCA and selective coronary angiography was done using multiple views. Diagnostic angiography was indicative of severe mLAD and OM lesions. A decision was thus reached to proceed with PCI . A BMW wire was used to cross the mLAD lesion. The mid LAD lesion was not amenable to balloon, not even with a 1.2 mm balloon. A BMW was then used to cross the OM lesion. A 2.5 Coronary Shockwave balloon was used to pre-dilate the OM lesion. A 2.5 x 28 mm Synergy Rx NIDHI was the deployed across the OM disease. Final angiography was then done. Findings:Coronary dominance: rightLeft main: Large, patent LAD: Large, proximal mild disease, mid 40% calcified disease then tortuous segment with 80% then 90% calcified lesions, mid to distal mild LI D1: Small D2: Small to medium size, mild to moderate disease Septals: Multiple, small LCX: Large, proximal mild LI, mid 30-40%, mid to distal mild LI OM1: Small to medium size, mild disease OM2: Medium size, proximal mild disease, mid calcified/ulcerated 70-75% disease (2.5 Shockwave Balloon; 2.5 x 28 mm Synergy Rx NIDHI; 0% residual stenosis), distal mild disease OM3: medium size, mild LI RCA: Large, dominant, proximal 30%, mid 30%, distal mild LI PDA: Mediums ize, mild LI PLB: Large, proximal mild disease then the vessel gives off two branches LVEDP: 17 mmHg Right External Iliac angiogram: Patent Post-Procedure Sedation AddendumImmediately prior to start of sedation, the patient was evaluated and there was no change from the pre-procedure evaluation. I was present and directed medical care.The patient underwent moderate sedation for the procedure. The medications administered were recorded in the MAR; oxygenation, ventilation and circulation were monitored continuously and were recorded in the EMR. I evaluated the patient after the procedure.The patient was evaluated immediately as recovering from sedation. Complications: None Impression:Mid LAD is tortuous with calcified, diffuse disease. PTCA done. She will need atherectomy Severe OM disease. Successful PCI with 2.5 x 28 mm Synergy Rx NIDHI Plan:Monitor on Telemetry FloorASA 81 mg dailyStatin Brilinta 180 mg load given, continue 90 mg BID . 2 doses (tonight and tomorrow AM). Please load with Plavix 300 mg tomorrow, then continue with 75 mg daily thereafter Aggressive medical management At discharge she should be on Plavix 75 mg daily and anticoagulation. No Aspirin If symptoms recur, then ar risk atherectomy + PCI of mLAD will be considered. Findings and plan discussed with patient and family. Mark Sewell M.D.Interventional Cardiology Pager: [phone] [id number]:40:11Proce dure noteTXT1.2.840.222672.1.13.104 .2.7.2.962727|[id number] lable for patient wxuo00508-4Lahmdssna noteLNIM-INTERVENTIONAL CARDIOLOGY STAFFIM-INTERVENTIONAL CARDIOLOGY STAFF[address] ZbbwAzbuwzoqfMtliymgvpBYCW8075 495678RLHMGRWASVVWLPRRICIHGZ54 07-07-10T12:40:111.2.840.18334 0.1.72.3.15|1.2.840.003361.1.1 [id number]
[2023-10-01 22:26] LABS: Absolute Lymphocytes (CBC) 1.2 K/uL (0.7-4.9); Hematocrit 37.6 % (36.0-45.0); Lymphocytes % 8.5 % (15.3-44.8); MCV 93.6 fL (80-100); MPV 8.3 fL (7.6-11.3); Platelets 210 thou/uL (152-406); RBC Red Blood Cell Count 4.02 M/uL (3.86-4.86)
--- NOTE | 2023-10-01 22:28 | RAD REPORT ---
EXAM DESCRIPTION: RAD - Chest Single View - 10/01/2023 10:17 pm CLINICAL HISTORY: DYSPNEA Chest pain. COMPARISON: Chest Pa And Lat (2 Views) dated 11/11/2021; Chest Single View dated 01/11/2019 FINDINGS: Portable technique limits examination quality. Extensive bilateral pulmonary opacities are present which may represent pulmonary edema or pneumonia. The heart is significantly enlarged. No displaced fractures. IMPRESSION: Significant CHF versus volume overload pattern. A significant bilateral pneumonia can maltese eld a similar appearance.
[2023-10-01 23:03] LABS: Potassium 5.2 mEq/L (3.5-5.1); Troponin High Sensitivity 18.5 pg/mL (<58.9)
[2023-10-01] MEDS ORDERED: AZITHROMYCIN 500 MG INJ IVPB ONE (23:38)
[2023-10-01] MEDS ORDERED: CEFTRIAXONE 1000 MG/VIAL ONE (23:38)
[2023-10-01] MEDS ORDERED: NA CHLORIDE 0.9% 250 ML ONE (23:38)
--- NOTE | 2023-10-02 00:01 | EDPHYS ---
Physician Documentation [facility] Name: Luisa Sanchez Age: 83 yrs Sex: Female : 1940 Arrival Date: 10/01/2023 Time: 21:44 Bed 13 Private MD: ED Physician Zain Franks HPI: 10/01 22:01 This 83 yrs old Female presents to ER via Wheelchair with complaints of sob. ec2 22:01 Patient arrives today for evaluation of shortness of breath. Patient has end-stage ec2 dialysis, makes some urine, goes dialysis Wednesday, last dialysis Wednesday, arrives today due to concern for difficulty breathing as well as orthopnea and leg swelling. . Historical: - Allergies: 22: No Known Allergies; rv - PMHx: 22: Diabetes - NIDDM; Hyperlipidemia; Hypertension; Kidney disease; rv - PSHx: 22: None; rv - Immunization history:: Adult Immunizations up to date. - Social history:: Smoking status: Patient reports the use of cigarette tobacco products, smokes one pack cigarettes per day. ROS: 22:01 Constitutional: as per hpi ec2 Exam: 22:01 Constitutional: GEN: NAD Head: atraumatic Eyes: EOMI Ears: External ears are ec2 normal. CV: regular rate, bilateral lower extremity edema. LUNGS: Tachypnea, Rales in the bilateral lower lung hair ABD: non-distended SKIN: no evidence of rashes MSK: no evidence of trauma NEURO: moves all extremities equally Vital Signs: 21:53 BP 206 / 80; Pulse 85; Resp 25; Pulse Ox 81% on R/A; rv 10/02 01:07 BP 127 / 79; Pulse 57; Resp 16; Temp 98; Pulse Ox 99% on BiPAP; FiO2 30 %; rv Kimberlee Coma Score: 01:07 Eye Response: spontaneous(4). Motor Response: obeys commands(6). Verbal Response: rv oriented(5). Total: 15. MDM: 10/01 21:54 Patient medically screened. ec2 22:01 ED course: Patient arrives today due to concern for progressive shortness of breath. ec2 Examination remarkable for respiratory findings as noted above. Will obtain lab work, EKG, chest x-ray. Suspect volume overload from patient's ESRD. Initially considered other processes such as ACS, low suspicion for PE or dissection.. ED course: Patient is noted to be hypoxic with initial saturations at the low 80s, placed on supplemental oxygen. Anticipate admission to the hospital. 22:16 ED course: Patient with improving oxygen on nasal cannula, still remains tachypneic, ec2 placed on BiPAP.. 22:32 ED course: Chest x-ray independently reviewed and interpreted by me, shows bilateral ec2 lower patchy opacities, cardiomegaly noted. We will add on antibiotic coverage, chest x-ray appears like volume overload, possible pneumonia however have a low index suspicion for this. Patient with persistent tachypnea and work of breathing, will place on BiPAP.. 22:52 ED course: Patient with improvement in tachypnea with BiPAP administration.. ec2 22:54 ED course: EKG independently reviewed and interpreted by me, shows normal sinus rhythm, ec2 rate of 77, no acute ST segment elevations, intervals are nonconcerning, no hyperkalemic changes noted.. 23:49 ED course: Metabolic profile with appropriate electrolytes, expected renal dysfunction, ec2 elevated BNP at 43,000, troponin within normal ranges, CBC with slight leukocytosis. . 23:57 Data reviewed: vital signs. ED course: On reassessment patient is breathing comfortably ec2 on the BiPAP, will admit to hospitalist, Dr. Gandhi. Patient stabilized from a breathing standpoint, I do not feel she requires emergent dialysis at this time. Page to Dr. Gandhi placed. Admission orders placed by myself.. 10/01 22:00 Order name: Basic Metabolic Panel; Complete Time: 23:49 ec2 10/01 22:00 Order name: CBC with Diff; Complete Time: 22:31 ec2 10/01 22:00 Order name: NT PRO-BNP; Complete Time: 23:49 ec2 10/01 22:00 Order name: Troponin HS; Complete Time: 23:49 ec2 10/01 22:31 Order name: COVID-19 SARS RT PCR; Complete Time: 00:14 ec2 10/01 22:31 Order name: Influenza Screen (a \T\ B); Complete Time: 00:01 ec2 10/01 22:33 Order name: Blood Culture Adult (2) ec2 10/01 22:33 Order name: Lactate w/ 2H reflex if indic.; Complete Time: 23:51 ec2 10/02 00:31 Order name: Lipid Profile [facility] 10/02 00:31 Order name: Lipid Profile [facility] 10/01 22:00 Order name: XRAY Chest (1 view); Complete Time: 22:31 ec2 10/01 22:00 Order name: EKG; Complete Time: 22:01 ec2 10/02 00:31 Order name: Respiratory Therapy Consult [facility] 10/01 22:00 Order name: Cardiac monitoring; Complete Time: 22:55 ec2 10/01 22:00 Order name: EKG - Nurse/Tech; Complete Time: 22:55 ec2 10/01 22:00 Order name: IV Saline Lock; Complete Time: 23:36 ec2 10/01 22:00 Order name: Labs collected and sent; Complete Time: 23:36 ec2 10/01 22:00 Order name: O2 Per Protocol; Complete Time: 23:36 ec2 10/01 22:00 Order name: O2 Sat Monitoring; Complete Time: 22:55 ec2 10/01 22:33 Order name: Accucheck; Complete Time: 00:07 ec2 10/01 22:33 Order name: IV Saline Lock - Large Bore; Complete Time: 23:36 ec2 10/01 22:33 Order name: Vital Signs; Complete Time: 23:36 ec2 Administered Medications: 23:36 Drug: Rocephin IV 1 grams IV at calculated rate once; Given slow IV push per pharmacy me1 instructions Route: IV; Rate: calculated rate; Site: right forearm; 23:38 Follow up: IV Status: Completed infusion rv 10/02 00:08 Follow up: Response: No adverse reaction 10/01 23:36 Drug: AZITHromycin IVPB 500 mg IVPB once over 1 hrs; (mix in 250 mL NS) Route: IVPB; me1 Infused Over: 1 hrs; Site: right forearm; 10/02 01:13 Follow up: IV Status: Completed infusion; IV Intake: 250ml rv Disposition Summary: 10/02/23 00:00 Hospitalization Ordered Notes: Hospitalization Status: Inpatient Admission ec2 Provider: Jass Gandhi ec2 Location: Telemetry/[facility] (Inpatient) ec2 Condition: Stable ec2 Problem: an acute exacerbation ec2 Symptoms: have improved ec2 Bed/Room Type: Standard ec2 Room Assignment: 224(10/02/23 00:52) rv1 Diagnosis - Volume Overload ec2 - ESRD ec2 - Dyspnea ec2 Forms: - Medication Reconciliation Form ec2 - SBAR form ec2 - Leadership Thank You Letter ec2 Critical care time excluding procedures: 00:30 Critical care time: Bedside Care: 30 minutes, Consultation: 5 minutes. Total time: 35 ec2 minutes Signatures: Dispatcher [employer] EDMS Luis Armando Phillips RN RN rv Wendy Witt rv1 Essence Lee RN RN ny1 Zain Franks MD MD ec2 Corrections: (The following items were deleted from the chart) 10/01 22:53 22:32 ED course: Chest x-ray independently reviewed and interpreted by me, shows ec2 bilateral lower patchy opacities, cardiomegaly noted. We will add on antibiotic coverage, chest x-ray appears like volume overload, possible pneumonia however have a low index suspicion for this.. ec2 23:58 23:57 ED course: On reassessment patient is breathing comfortably on the BiPAP, will ec2 admit to hospitalist, Dr. Gandhi. Patient stabilized from a breathing standpoint, I do not feel she requires emergent dialysis at this time. Will place in ICU.. ec2 10/02 00:30 11 23:57 ED course: On reassessment patient is breathing comfortably on the BiPAP, ec2 will admit to hospitalist, Dr. Gandhi. Patient stabilized from a breathing standpoint, I do not feel she requires emergent dialysis at this time.. ec2 10/02 00:52 00:00 ec2 rv1
--- NOTE | 2023-10-02 00:01 | ER ---
Nurse's Notes [facility] Name: Luisa Sanchez Age: 83 yrs Sex: Female : 1940 Arrival Date: 10/01/2023 Time: 21:44 Bed 13 Private MD: Diagnosis: Volume Overload;ESRD;Dyspnea Presentation: 10/01 21:53 Chief complaint: Patient states: pt is on dialysis, SOB since this morning, unable to rv do HD because of staffing issues at the facility. pt is current everyday smoker. denies CP. Coronavirus screen: At this time, the client does not indicate any symptoms associated with coronavirus-19. Ebola Screen: No symptoms or risks identified at this time. 21:53 Method Of Arrival: Wheelchair rv 21:53 Initial Sepsis Screen: Does the patient meet any 2 criteria? RR > 20 per min. No. rv Patient's initial sepsis screen is negative. Does the patient have a suspected source of infection? No. Patient's initial sepsis screen is negative. 21:53 Risk Assessment: Do you want to hurt yourself or someone else? Patient reports no rv desire to harm self or others. Onset of symptoms was October 01, 2023. 21:53 Acuity: ELIEZER 2 rv Triage Assessment: 22:01 General: Appears uncomfortable, Behavior is calm, cooperative. Pain: Denies pain. rv Neuro: Level of Consciousness is awake, alert, obeys commands, Oriented to person, place, time, situation. Cardiovascular: Capillary refill < 3 seconds Patient's skin is warm and dry. Respiratory: Airway is patent Respiratory effort is labored, using tripod position, Respiratory pattern is tachypnea Breath sounds with wheezes bilaterally. GI: No signs and/or symptoms were reported involving the gastrointestinal system. : No signs and/or symptoms were reported regarding the genitourinary system. Derm: Skin is intact. Historical: - Allergies: 22: No Known Allergies; rv - PMHx: 22: Diabetes - NIDDM; Hyperlipidemia; Hypertension; Kidney disease; rv - PSHx: 22: None; rv - Immunization history:: Adult Immunizations up to date. - Social history:: Smoking status: Patient reports the use of cigarette tobacco products, smokes one pack cigarettes per day. Screenin/18 01:09 [facility] ED Fall Risk Assessment (Adult) History of falling in the last 3 months, rv including since admission No falls in past 3 months (0 pts) Score/Fall Risk Level 0 - 2 = Low Risk Oriented to surroundings, Maintained a safe environment, Educated pt \T\ family on fall prevention, incl call for assistance when getting out of bed. Abuse screen: Denies threats or abuse. Denies injuries from another. Nutritional screening: No deficits noted. Tuberculosis screening: No symptoms or risk factors identified. Assessment: 01:08 General: Appears comfortable, Behavior is calm, cooperative. Pain: Denies pain. Neuro: rv Level of Consciousness is awake, alert, obeys commands, Oriented to person, place, time, situation. Cardiovascular: Capillary refill < 3 seconds Patient's skin is warm and dry. Respiratory: Airway is patent Respiratory effort is even, unlabored, Patient placed on BiPAP: FiO2%: 30 Respiratory Rate: 16. GI: No signs and/or symptoms were reported involving the gastrointestinal system. : No signs and/or symptoms were reported regarding the genitourinary system. Derm: Skin is intact. Vital Signs: 10/01 21:53 BP 206 / 80; Pulse 85; Resp 25; Pulse Ox 81% on R/A; rv 10/02 01:07 BP 127 / 79; Pulse 57; Resp 16; Temp 98; Pulse Ox 99% on BiPAP; FiO2 30 %; rv Kimbelree Coma Score: 01:07 Eye Response: spontaneous(4). Motor Response: obeys commands(6). Verbal Response: rv oriented(5). Total: 15. ED Course: 10/01 21:51 Patient arrived in ED. kl 21:53 Zain Franks MD is Attending Physician. ec2 22:01 Arm band placed on right wrist. rv 22:15 Inserted saline lock: 20 gauge in right forearm, using aseptic technique. rv 22:19 XRAY Chest (1 view) In Process Unspecified. EDMS 22:46 Essence Lee, ALDO is Primary Nurse. me1 22:55 EKG done, by ED staff, reviewed by Zain Franks MD. wm 23:22 Lactate w/ 2H reflex if indic. Sent. me1 23:22 Blood Culture Adult (2) Sent. me1 23:36 Blood Culture Adult (2) Sent. me1 23:36 Lactate w/ 2H reflex if indic. Sent. me1 11/18 00:00 Jass Gandhi MD is Hospitalizing Provider. ec2 00:00 Patient has correct armband on for positive identification. rv 00:00 Client placed on continuous cardiac and pulse oximetry monitoring. NIBP monitoring rv applied. radiation monitor on. 00:07 Blood Culture Adult (2) Sent. rv 01:10 Triage completed. rv 01:10 No provider procedures requiring assistance completed. Patient admitted, IV remains in rv place. Administered Medications: 10/01 23:36 Drug: Rocephin IV 1 grams IV at calculated rate once; Given slow IV push per pharmacy me1 instructions Route: IV; Rate: calculated rate; Site: right forearm; 23:38 Follow up: IV Status: Completed infusion rv 10/02 00:08 Follow up: Response: No adverse reaction rv 10/01 23:36 Drug: AZITHromycin IVPB 500 mg IVPB once over 1 hrs; (mix in 250 mL NS) Route: IVPB; me1 Infused Over: 1 hrs; Site: right forearm; 10/02 01:13 Follow up: IV Status: Completed infusion; IV Intake: 250ml rv Medication: 01:10 VIS not applicable for this client. rv Intake: 01:13 IV: 250ml; Total: 250ml. rv Outcome: 00:00 Decision to Hospitalize by Provider. ec2 01:13 Admitted to Med/surg accompanied by tech, via stretcher, room 224, with chart, Report rv called to [facility] 01:13 Condition: good 01:13 Instructed on the need for admit, 01:21 Patient left the ED. rv Signatures: Dispatcher [employer] Jovita Sanders RN RN kl Vicente, Ronaldo, RN RN rv Marsh, Wendy wm Eddleman, Michelle, RN RN me1 Zain Franks MD MD ec2
[2023-10-02] MEDS ORDERED: ALBUTEROL 2.5 MG/3 ML NEB SOL NEB PRN (00:27)
[2023-10-02] MEDS ORDERED: ONDANSETRON 4 MG/2 ML VIAL IV PRN (00:27)
[2023-10-02 02:04] VITALS: BMI 19.2
[2023-10-02] MEDS: METOPROLOL XL 50 MG TAB PO SCH ×3 (05:44→21:29)
[2023-10-02] MEDS: COLESEVELAM HCL 625 MG PO SCH ×2 (09:00→21:00)
[2023-10-02] MEDS: CLOPIDOGREL 75 MG TABLET PO SCH (09:21)
[2023-10-02] MEDS: SEVELAMER CARBONATE 800 MG TABLET PO SCH ×3 (09:21→21:29)
[2023-10-02] MEDS: CYANOCOBALAMIN 1,000 MCG TAB PO SCH (09:22)
[2023-10-02] MEDS: APIXABAN 2.5 MG TABLET PO SCH ×2 (09:22→21:29)
[2023-10-02] MEDS ORDERED: MANNITOL 25% 12.5 GM/50 ML VIAL IV PRN ×2 (10:40→12:41)
[2023-10-02] MEDS ORDERED: NA CHLORIDE 0.9% 1,000 ML IV PRN (10:40)
[2023-10-02] MEDS ORDERED: EPOETIN ALFA 10,000 UNIT/ML VIAL IV SCH (10:45)
[2023-10-02] MEDS ORDERED: ALBUMIN HUMAN 25% 50 ML IV SCH (11:00)
[2023-10-02] MEDS ORDERED: DRISDOL (VITAMIN D=ERGOCALCIFEROL) 50000 UNIT CAP PO SCH (13:00)
--- NOTE | 2023-10-02 15:32 | CON ---
Date of Consultation: 10/02/2023 Reason For Consult: ESRD. History Of Present Illness: Ms. Sanchez is an 83-year-old female with past medical history significant for history of ESRD, on dialysis, getting dialysis at [facility] on Wednesday, Wednesday, Wednesday schedule, presented to [facility] complaining of shortness of breath. She was noted to have significant pulmonary edema on the chest x-ray. The patient states that she missed her dialysis yesterday as she was told not to come because of lack of staff. The patient othe kaya reports compliance with her dialysis. Past Medical History: Significant for history of hypertension, ESRD, on dialysis, recurrent UTIs, ty pe 2 diabetes. Past Surgical History: Significant for history of left hip intertrochanteric fracture, status post s urgery, history of atrial fibrillation. Review of Systems: As per history of present illness. Physical Examination: Vital Signs: At this time are showing temperature of 98.5, pulse rate of 63, respiratory rate of 14, and blood pressure 167/69. She is saturating 94% on nasal cannula oxygen. General: She appears in no acute distress. HEENT: Atraumatic head. Neck: No JVD was noted. Heart: Auscultation of the heart revealed regular rate and rhythm. Abdomen: Soft and nontender. Lungs: Auscultation of the lungs revealed bilateral wheezing. Extremities: No evidence of edema. Abdomen: Soft and nontender. Laboratory Data: Sodium of 135, potassium of 5.2, chloride of 106, BUN of 44, and creatinine of 4.54 . Lactic acid was 1.6. Calcium was 10.3. CBC showing stable hemoglobin, hematocrit, and platelet c ount. X-ray results were reviewed. Impression: End-stage renal disease, on dialysis. The patient is needing emergent dialysis at this time because of volume overload and pulmonary edema with respiratory distress. The plan is to get ul trafiltration of about 2.9 L as tolerated. Blood pressures are stable, and she believes she can tole rate it. The patient has been counseled on compliance. Home medications can be resumed and volume s tatus can be assessed along with her breathing status after dialysis. If she is continuing to requir e oxygen after dialysis, the patient may need to get home oxygen evaluation done. At this time, we w ill resume medications from home. Monitor her volume status with dialysis and I will plan for next d ialysis on Wednesday per her regular schedule unless she has another acute indication tomorrow. The nba n is discussed with the patient at bedside. Seen and examined on dialysis and discussed with the chris lysis RN as well. VV/MODL Voice ID: [id number] Report ID: [id number]
--- NOTE | 2023-10-02 16:11 | P.HP ---
Certification for Inpatient Patient admitted to: Inpatient With expected LOS: >2 Midnights Practitioner: I am a practitioner with admitting privileges, knowledge of patient current condition, hospital course, and medical plan of care. Services: Services provided to patient in accordance with Admission requirements found in Title 42 Section 412.3 of the Code of Federal Regulations Patient History Date of Service: 10/02/23 Reason for admission: Shortness of breath History of Present Illness: 83-year-old man with a history of anxiety renal disease on hemodialysis, diabetes and hypertension was brought to the emergency department due to acute onset shortness of breath. She got dialysis on Wednesday and Wednesday but missed dialysis on Wednesday. According to the family patient developed shortness of breath overnight and therefore presented to the emergency department. Chest x-ray done in the emergency department demonstrated pulm edema. Patient was hospitalized for further management. Allergies No Known Allergies Allergy (Verified 01/20/19 02:24) Home Medications: Atorvastatin Calcium 40 mg PO BEDTIME 01/11/19 Apixaban [Eliquis] 2.5 mg PO BID #60 tablet 02/01/19 Amlodipine [Norvasc*] 5 mg PO BEDTIME 10/02/23 Clopidogrel Bisulfate [Plavix*] 1 tab PO DAILY 10/02/23 Colesevelam HCl [Welchol] 1 tab PO BID 10/02/23 Cyanocobalamin (Vitamin B-12) [Vitamin B-12] 1 tab PO DAILY 10/02/23 Lisinopril [Zestril] 10 mg PO BEDTIME 10/02/23 Metoprolol Succinate [Toprol Xl*] 25 mg PO BID 10/02/23 Sevelamer Carbonate [Renvela*] 800 mg PO TID 10/02/23 Sitagliptin Phosphate [Januvia] 25 mg PO DAILY 10/02/23 - Past Medical/Surgical History Has patient received pneumonia vaccine in the past: Yes Diabetic: Yes -: HTN -: prolapse uterus -: hyperlipedemia -: AFIB -: Rt ear sx- child -: cataract surgery bliateral -: ORIF left hip 01/12/19 - Family History Father -: Diabetes, Cancer, Kidney disease Mother -: Cancer Notes: - Social History Smoking Status: Current every day smoker Alcohol use: No CD- Drugs: No Caffeine use: Yes Place of Residence: Home Review of Systems Other: Patient denied any chest pain. She denied any palpitation. She denied any abdominal pain. She denied any fever. Except as documented, all other systems reviewed and negative. Physical Examination - Vital Signs Temperature: 98.5 F Blood Pressure: 167/69 Pulse: 63 Respirations: 14 Pulse Ox (%): 94 - Physical Exam General: Alert, In no apparent distress, Oriented x3 HEENT: Mucous membr. moist/pink, Other (Oxygen by nasal cannula), Sclerae nonicteric Neck: Supple, JVD not distended Respiratory: Normal air movement, Crackles/rales (Mild bibasilar Rales) Cardiovascular: No edema, Regular rate/rhythm, Normal S1 S2 Capillary refill: <2 Seconds Gastrointestinal: Normal bowel sounds, Soft and benign, Non-distended, No tenderness Musculoskeletal: No swelling, No tenderness Integumentary: No rashes, No cyanosis Neurological: Normal speech, Normal strength at 5/5 x4 extr, Cranial nerves 3-12 intact Lymphatics: No axilla or inguinal lymphadenopathy - Studies Laboratory Data (last 24 hrs) 10/01/23 10/01/23 22:15 22:15 WBC 14.60 H Hgb 12.0 Hct 37.6 Plt Count 210 Sodium 135 L Potassium 5.2 H BUN 44 H Creatinine 4.54 H Glucose 230 H Microbiology Data (last 24 hrs): 10/01/23 23:17 Nasopharnyx Influenza Type A Antigen Screen - Final 10/01/23 23:17 Nasopharnyx Influenza Type B Antigen Screen - Final Assessment and Plan - Problems (Diagnosis) (1) Pulmonary edema Current Visit: Yes Status: Acute (2) End-stage renal disease on hemodialysis Current Visit: Yes Status: Acute (3) Diabetes Current Visit: No Status: Chronic Qualifiers: (4) HTN (hypertension) Current Visit: No Status: Chronic (5) Chronic atrial fibrillation Current Visit: Yes Status: Acute - Plan Admit patient to the medical floor. Nephrology consulted for hemodialysis. Anticipating dialysis to correct pulmonary edema and hyperkalemia Supplemental oxygen as needed Resume home medications for hypertension Insulin sliding scale for glucose management. Resume home medications for atrial fibrillation including Eliquis. Monitor renal function. DVT prophylaxis: Eliquis. - Advance Directives Does patient have a Living Will: No Does patient have a Durable POA for Healthcare: No
[2023-10-02] MEDS ORDERED: lisinopriL 10 MG TAB PO SCH (21:00)
[2023-10-02] MEDS ORDERED: ATORVASTATIN 40 MG TAB PO SCH (21:00)
[2023-10-02] MEDS ORDERED: AMLODIPINE 5 MG TAB PO SCH (21:00)
[2023-10-03 03:38] LABS: Absolute Lymphocytes (CBC) 0.8 K/uL (0.7-4.9); Hematocrit 32.2 % (36.0-45.0); Lymphocytes % 10.5 % (15.3-44.8); MCV 91.9 fL (80-100); MPV 8.8 fL (7.6-11.3); Platelets 217 thou/uL (152-406); RBC Red Blood Cell Count 3.51 M/uL (3.86-4.86)
[2023-10-03 04:00] LABS: Potassium 3.7 mEq/L (3.5-5.1)
[2023-10-03 08:57] VITALS: O2SAT 93
[2023-10-03] MEDS: COLESEVELAM HCL 625 MG PO SCH (09:00)
[2023-10-03] MEDS: SEVELAMER CARBONATE 800 MG TABLET PO SCH ×2 (09:26→13:32)
[2023-10-03] MEDS: CLOPIDOGREL 75 MG TABLET PO SCH (09:26)
[2023-10-03] MEDS: METOPROLOL XL 50 MG TAB PO SCH (09:26)
[2023-10-03] MEDS: APIXABAN 2.5 MG TABLET PO SCH (09:27)
[2023-10-03] MEDS: CYANOCOBALAMIN 1,000 MCG TAB PO SCH (09:32)
[2023-10-03 16:37] VITALS: BP 151/72; TEMP 97.8
--- NOTE | 2023-10-03 17:12 | P.DS ---
Admission Date: 10/02/23 Discharge Date: 10/03/23 Disposition: ROUTINE DISCHARGE Discharge Condition: FAIR Reason for Admission: Shortness of breath - Problems (1) Pulmonary edema Current Visit: Yes Status: Acute (2) End-stage renal disease on hemodialysis Current Visit: Yes Status: Acute (3) Diabetes Current Visit: No Status: Chronic Qualifiers: (4) HTN (hypertension) Current Visit: No Status: Chronic (5) Chronic atrial fibrillation Current Visit: Yes Status: Acute Brief History of Present Illness: 83-year-old man with a history of anxiety renal disease on hemodialysis, diabetes and hypertension was brought to the emergency department due to acute onset shortness of breath. She got dialysis on Wednesday and Wednesday but missed dialysis on Wednesday. According to the family patient developed shortness of breath overnight and therefore presented to the emergency department. Chest x-ray done in the emergency department demonstrated pulm edema. Patient was hospitalized for further management. Hospital Course: Patient admitted to the medical floor. Nephrology consulted. She underwent hemodialysis. Her shortness of breath resolved post hemodialysis. Patient remained stable after dialysis. Her home medications were resumed during the hospital stay. Vital Signs/Physical Exam: Temp Pulse Resp BP Pulse Ox 97.8 F 72 14 151/72 H 92 10/03/23 16:00 10/03/23 16:00 10/03/23 16:00 10/03/23 16:00 10/03/23 16:00 General: Alert, In no apparent distress, Oriented x3 HEENT: Mucous membr. moist/pink Neck: Supple, JVD not distended Respiratory: Clear to auscultation bilaterally, Normal air movement Cardiovascular: No edema, Regular rate/rhythm, Normal S1 S2 Gastrointestinal: Normal bowel sounds, Soft and benign, Non-distended Musculoskeletal: No swelling Integumentary: No rashes, No cyanosis Neurological: Normal strength at 5/5 x4 extr Laboratory Data at Discharge: WBC 7.90 thou/uL (4.3-10.9) 10/03/23 03:05 Hgb 10.9 g/dL (12.0-15.0) L 10/03/23 03:05 Hct 32.2 % (36.0-45.0) L 10/03/23 03:05 Plt Count 217 thou/uL (152-406) 10/03/23 03:05 Sodium 136 mEq/L (136-145) 10/03/23 03:05 Potassium 3.7 mEq/L (3.5-5.1) 10/03/23 03:05 BUN 32 mg/dL (7-18) H 10/03/23 03:05 Creatinine 2.92 mg/dL (0.55-1.02) H 10/03/23 03:05 Glucose 163 mg/dL (74-106) H 10/03/23 03:05 Triglycerides 65 mg/dL (<150) 10/03/23 03:05 Cholesterol 80 mg/dL (<200) 10/03/23 03:05 HDL Cholesterol 60 mg/dL (40-60) 10/03/23 03:05 Cholesterol/HDL Ratio 1.33 10/03/23 03:05 Home Medications: Atorvastatin Calcium 40 mg PO BEDTIME 01/11/19 Apixaban [Eliquis *] 2.5 mg PO BID #60 tablet 02/01/19 Amlodipine [Norvasc*] 5 mg PO BEDTIME 10/02/23 Clopidogrel Bisulfate [Plavix*] 1 tab PO DAILY 10/02/23 Colesevelam HCl [Welchol] 1 tab PO BID 10/02/23 Cyanocobalamin (Vitamin B-12) [Vitamin B-12] 1 tab PO DAILY 10/02/23 Lisinopril [Zestril] 10 mg PO BEDTIME 10/02/23 Metoprolol Succinate [Toprol Xl*] 25 mg PO BID 10/02/23 Sevelamer Carbonate [Renvela*] 800 mg PO TID 10/02/23 Sitagliptin Phosphate [Januvia] 25 mg PO DAILY 10/02/23 Vitamin D [Drisdol*] 50,000 unit PO Q48H #15 cap 10/03/23 New Medications: Vitamin D [Drisdol*] 50,000 unit PO Q48H #15 cap Physician Discharge Instructions: Follow up for dialysis at your dialysis center tomorrow. Diet: Renal Activity: Fall precautions Followup: Jass Gandhi MD [Primary Care Provider] - 1-2 Weeks Time spent managing pt's care (in minutes): 33
[2023-10-04 04:23] LABS: Hepatitis B surface AG Interp. Nonreactive (Nonreactive)
[2023-10-04 04:26] LABS: Hepatitis B Surface Ab - Quant < 3.10 mIU/mL (<8.0)
--- NOTE | 2023-10-06 17:08 | EKG ---
Test Date: 2023-10-01 Test Time: 22:48:14 Golf Ball Cover Treater: MEASUREMENT RESULTS: Intervals: Rate: 77 NV: 138 QRSD: 84 QT: 390 QTc: 441 [place]: P: 82 NV: 138 QRS: 17 T: 75 INTERPRETIVE STATEMENTS: Normal sinus rhythm with sinus arrhythmia Normal ECG Compared to ECG 01/15/2019 10:12:33 No significant changes Electronically Signed On 10-06-23 16:55:35 MEDICAL BILLER/CODER by Willie Nogueira
== END 2023-10-03 18:18 | disposition home or self-care (01) | DRG 640 ==
LOC: ER 21:44 → 2ND 10-02 01:16
PROVIDERS: ADMIT Internal Medicine; ATTEND Internal Medicine
PROC: 5A09457 Assistance with Respiratory Ventilation, 24-96 Consecutive Hours, Continuous Positive Airway Pressure (ICD-10-PCS; principal; 2023-10-02)
PROC: 5A1D70Z Performance of Urinary Filtration, Intermittent, Less than 6 Hours Per Day (ICD-10-PCS; 2023-10-02)
DX: E87.70 Fluid overload, unspecified (principal); J81.0 Acute pulmonary edema; N18.6 End stage renal disease; I48.20 Chronic atrial fibrillation, unspecified; I12.0 Hypertensive chronic kidney disease with stage 5 chronic kidney disease or end stage renal disease; E11.22 Type 2 diabetes mellitus with diabetic chronic kidney disease; E87.5 Hyperkalemia; E78.5 Hyperlipidemia, unspecified; F17.210 Nicotine dependence, cigarettes, uncomplicated; R06.03 Acute respiratory distress; Z99.2 Dependence on renal dialysis; Z71.89 Other specified counseling; Z79.01 Long term (current) use of anticoagulants; Z91.158 Patient's noncompliance with renal dialysis for other reason; Z79.899 Other long term (current) drug therapy; Z96.642 Presence of left artificial hip joint
CPT/HCPCS: 36415; 71045; 80048; 80061; 82947; 83605; 83880; 84484; 85025; 86706; 87040; 87340; 87635; 87804; 90935; 93005; 94660; 94760; 96365; 96366; 96375; 99285; J0696; J1644; J2150; J7050

== ENCOUNTER 2023-12-07 14:06 | Inpatient (IN) | payer OTHER ==
[2023-12-07] MEDS ORDERED: NA CHLORIDE 0.9% 500 ML ONE (14:34)
--- NOTE | 2023-12-07 14:49 | RAD REPORT ---
EXAM DESCRIPTION: RAD - Chest Single View - 12/07/2023 2:42 pm CLINICAL HISTORY: COUGH Chest pain. COMPARISON: <Comparisons> FINDINGS: Portable technique limits examination quality. Moderate opacity is seen in the right lung base likely infiltrate and right pleural fluid. The heart is moderately enlarged. No displaced fractures. IMPRESSION: Moderate right base pneumonia suspected.
--- NOTE | 2023-12-07 14:59 | RAD REPORT ---
EXAM DESCRIPTION: CT - Abdomen Pelvis Wo Contrast - 12/07/2023 2:36 pm CLINICAL HISTORY: Abdominal pain. ABD PAIN COMPARISON: No comparisons TECHNIQUE: CT imaging of the abdomen and pelvis was performed without contrast. Solid organ, bowel a nd vascular assessment is limited due to lack of IV and oral contrast. All CT scans are performed using dose optimization technique as appropriate and may include automated exposure control or mA/KV adjustment according to patient size. FINDINGS: Airspace opacity is seen in the right lower lobe with small right pleural effusion. Trace left pleural fluid. Cholelithiasis. No aggressive liver lesion or biliary dilatation. The spleen, pancreas, adrenal gland s kidneys show no abnormality on noncontrast assessment. Thickened small bowel loops as well as gas-filled and stool filled colon noted which are mildly diste nded. The appendix is normal. Marked pelvic floor laxity is seen with the urinary bladder completely prolapsed. The osseous structures are within normal limits. IMPRESSION: Cholelithiasis. Airspace opacity in the right lung base with small right pleural effusion favors pneumonia. Marked pelvic floor laxity is seen with complete prolapse of the urinary bladder seen. A limited non-contrast examination was performed as detailed.
[2023-12-07 15:13] LABS: Absolute Lymphocytes (CBC) 0.4 K/uL (0.7-4.9); Lymphocytes % 4.6 % (15.3-44.8); MCV 87.7 fL (80-100); MPV 8.2 fL (7.6-11.3); Platelets 155 thou/uL (152-406); RBC Red Blood Cell Count 3.65 M/uL (3.86-4.86)
[2023-12-07 15:22] LABS: Protime INR 1.25
[2023-12-07] MEDS ORDERED: CEFTRIAXONE 1000 MG/VIAL ONE (15:30)
[2023-12-07] MEDS ORDERED: NA CHLORIDE 0.9% 250 ML ONE (15:31)
[2023-12-07] MEDS ORDERED: AZITHROMYCIN 500 MG INJ IVPB ONE (15:31)
[2023-12-07 15:33] LABS: Albumin 3.2 g/dL (3.4-5.0); Bilirubin Total 0.7 mg/dL (0.2-1.0); Potassium 3.7 mEq/L (3.5-5.1); Protein, Total 6.9 g/dL (6.4-8.2); Troponin High Sensitivity 33.7 pg/mL (<58.9)
[2023-12-07] MEDS ORDERED: dilTIAZem HCL 25 MG/5 ML VIAL IV ONE (15:48)
--- NOTE | 2023-12-07 16:19 | EDPHYS ---
Physician Documentation [facility] Name: Luisa Sanchez Age: 83 yrs Sex: Female : 1940 Arrival Date: 12/07/2023 Time: 14:06 Bed 19 Private MD: ED Physician Zain Franks HPI: 12/07 16:19 This 83 yrs old Female presents to ER via EMS with complaints of hypotension. kb 16:19 Patient is an 83-year-old female who presents for hypotension and tachycardia that kb began at dialysis just prior to arrival. Reports she has had abdominal pain, vomiting and loose stools for 3 days. Denies fever. States she normally goes to dialysis Wednesday, Wednesday and Wednesday but was not feeling well enough to go yesterday. Went to dialysis today and had a drop in blood pressure and elevation of heart rate while being dialyzed so they stopped dialysis and called 911 to bring her to the ER. Patient is awake, alert and oriented. Historical: - Allergies: 14:22 No Known Allergies; as6 - PMHx: 14:22 Diabetes - NIDDM; Hyperlipidemia; Hypertension; kidney disease; as6 - PSHx: 14:22 hip (kidney disease); foot (kidney disease); Stented artery; as6 - Immunization history:: Adult Immunizations up to date. - Social history:: Smoking status: Patient reports the use of cigarette tobacco products, smokes two packs cigarettes per day. ROS: 14:53 Constitutional: Negative for fever, chills, and weight loss, kb 14:53 Respiratory: Positive for cough, Negative for dyspnea on exertion, hemoptysis, orthopnea, pleurisy, shortness of breath, sputum production, wheezing, 14:53 Abdomen/GI: Positive for abdominal pain, nausea, vomiting, and diarrhea, 14:53 All other systems are negative, Exam: 14:32 Constitutional: This is a well developed, well nourished patient who is awake, alert, kb and in no acute distress. Head/Face: Normocephalic, atraumatic. ENT: Moist Mucous membranes Cardiovascular: irregularly irregular Respiratory: Respirations even and unlabored. No increased work of breathing. Talking in full sentences Abdomen/GI: Soft, non-tender. No distention Skin: Warm, dry with normal turgor. Normal color. MS/ Extremity: Pulses equal, no cyanosis. Neurovascular intact. Full, normal range of motion. Neuro: Awake and alert, GCS 15, oriented to person, place, time, and situation. Moves all extremities. 14:32 ECG was reviewed by the Attending Physician. Vital Signs: 14:21 BP 93 / 53; Pulse 139; Resp 18 S; Temp 97.9(O); Pulse Ox 99% on R/A; Weight 49.44 kg as6 (R); Height 5 ft. 4 in. (R); Pain 5/10; 15:05 BP 77 / 54; Pulse 119; Resp 17 S; Pulse Ox 97% on R/A; as6 15:15 BP 106 / 59; Pulse 110; kb 15:24 BP 119 / 63; Pulse 121; Resp 19; Pulse Ox 97% on R/A; nj1 15:45 BP 116 / 77; Pulse 123; Resp 20; Temp 97.9(TE); Pulse Ox 95% on R/A; nj1 16:09 BP 98 / 66; Pulse 104; Resp 21; Pulse Ox 97% ; MAP 74 mmHg; nj1 17:00 BP 116 / 58; Pulse 74; Resp 20; Pulse Ox 98% on R/A; nj1 18:22 BP 124 / 51; Pulse 65; Resp 18; Pulse Ox 100% on R/A; nj1 14:21 Body Mass Index 18.71 (49.44 kg, 162.56 cm) as6 14:21 Pain Scale: Adult as6 MDM: 14:18 Patient medically screened. kb 15:13 ED course: Pt will be given 500ml of IVF instead of 30ml/kg bolus due to concern for kb fluid overload. BP currently 106/59. Sepsis reevaluation complete.. 15:35 ED course: Blood pressure responding to 500ml bolus of IVF. Sepsis reevaluation kb complete. 16:12 Differential diagnosis: Nonspecific abd pain, diverticulitis, viral gastroenteritis, kb pneumonia, flu, covid, strep, dehydration. Data reviewed: vital signs, nurses notes. Consideration of Admission/Observation Patient was admitted/placed on observation. Escalation of care including admission/observation considered. Management of patient was discussed with the following: Primary Care Provider: Dr Gandhi accepts pt for admission. Historians other than the Patient: EMS: [facility]. Care significantly affected by the following chronic conditions: Diabetes, Hypertension, Chronic Kidney Disease. Counseling: I had a detailed discussion with the patient and/or guardian regarding the historical points, exam findings, and any diagnostic results supporting the discharge/admit diagnosis, lab results, radiology results, the need for further work-up and treatment in the hospital. Admission orders: after a detailed discussion of the patient's condition and case, the admit orders are written by me. 12/07 14:19 Order name: Blood Culture Adult (2) kb 12/07 14:19 Order name: CBC with Diff; Complete Time: 21:35 kb 12/07 14:19 Order name: CMP; Complete Time: 15:34 kb 12/07 14:19 Order name: Lactate w/ 2H reflex if indic.; Complete Time: 15:34 kb 12/07 14:19 Order name: Protime (+inr); Complete Time: 15:23 kb 12/07 14:19 Order name: Ptt, Activated; Complete Time: 15:23 kb 12/07 14:19 Order name: Urinalysis w/ reflexes kb 12/07 14:19 Order name: Troponin High Sensitivity; Complete Time: 15:34 kb 12/07 14:19 Order name: Flu; Complete Time: 15:36 kb 12/07 14:19 Order name: COVID-19 SARS RT PCR; Complete Time: 15:46 kb 12/07 14:19 Order name: Strep kb 12/07 15:26 Order name: Throat Culture EDMI 12/07 19:22 Order name: Glucose, Ancillary Testing; Complete Time: 19:38 EDMI 12/07 21:25 Order name: CBC Smear Scan; Complete Time: 21:35 EDMI 12/07 23:26 Order name: Troponin High Sensitivity; Complete Time: 23:28 EDMI 12/07 14:19 Order name: Chest Single View XRAY; Complete Time: 14:50 kb 12/07 14:19 Order name: CT Abd/Pelvis - Without Contrast; Complete Time: 14:59 kb 12/07 14:19 Order name: EKG; Complete Time: 14:20 kb 12/07 14:19 Order name: Accucheck; Complete Time: 15:05 kb 12/07 14:19 Order name: Cardiac monitoring; Complete Time: 14:32 kb 12/07 14:19 Order name: EKG - Nurse/Tech; Complete Time: 14:32 kb 12/07 14:19 Order name: IV Saline Lock - Large Bore; Complete Time: 15:05 kb 12/07 14:19 Order name: Labs collected and sent; Complete Time: 15:05 kb 12/07 14:19 Order name: O2 Per Protocol; Complete Time: 14:32 kb 12/07 14:19 Order name: O2 Sat Monitoring; Complete Time: 14:32 kb 12/07 14:19 Order name: Vital Signs; Complete Time: 14:32 kb EC:32 Rate is 122 beats/min. Rhythm is irregularly irregular. QRS [place] is Normal. QRS kb interval is normal at 88 msec. QT interval is normal at 495 msec. Administered Medications: 14:55 Drug: NS 0.9% IV 500 ml IV at bolus once Route: IV; Rate: bolus; Site: right as6 antecubital; 15:27 Follow up: Response: No adverse reaction; IV Status: Completed infusion; IV Intake: nj1 500ml 15:36 Drug: Rocephin IV 1 grams IV at calculated rate once; Given slow IV push per pharmacy nj1 instructions Route: IV; Rate: calculated rate; Site: right antecubital; 15:40 Follow up: Response: No adverse reaction; IV Status: Completed infusion; IV Intake: [id number] 15:42 Drug: Zithromax IVPB 500 mg IVPB once over 1 hrs; mix in 250 mL NS Route: IVPB; Infused nj1 Over: 1 hrs; Site: right antecubital; 16:40 Follow up: IV Status: Completed infusion; IV Intake: 250ml nj1 15:50 Drug: Diltiazem IVP 10 mg IVP once; Over 2 minutes Route: IVP; Site: right antecubital; nj1 16:30 Follow up: Response: No adverse reaction nj1 19:51 Drug: levofloxacin IVPB 750 mg 150 ml IVPB once over 90 mins Volume: 150 ml; Route: ha1 IVPB; Infused Over: 90 mins; Site: right antecubital; 20:42 Follow up: Response: No adverse reaction; IV Status: Infusion continued; IV Intake: ha1 100ml Point of Care Testing: Blood Glucose: 15:05 Blood Glucose: 150 mg/dL; as6 Ranges: Critical Glucose Levels:Adult <50 mg/dl or >400 mg/dl <40 mg/dl or >180 mg/dl Disposition Summary: 12/07/23 16:19 Hospitalization Ordered Notes: Hospitalization Status: Inpatient Admission kb Provider: Jass Gandhi Condition: Stable kyung Problem: new kb Symptoms: are unchanged kb Bed/Room Type: Standard kb Location: Telemetry/MedSurg (Inpatient)(12/07/23 22:25) cg Room Assignment: [facility](12/07/23 22:25) cg Diagnosis - Pneumonia, unspecified organism kb - Hypotension, unspecified kb - Unspecified atrial fibrillation kb - Severe sepsis with septic shock kb Forms: - Medication Reconciliation Form kb - SBAR form kb - Leadership Thank You Letter kb Critical care time excluding procedures: 16:58 Critical care time: Bedside Care: 10 minutes, Consultation: 10 minutes, Family kb Intervention: 10 minutes. Total time: 30 minutes Signatures: Dispatcher [employer] EDMS [place] Ayala FNP-C FNP-Ckb Hall, Patricia RN Nita Carolina ph RN Car Gibson RN ALDO as6 Milka Antunez RN RN 1 Elenita Mcconnell RN RN nj1 Corrections: (The following items were deleted from the chart) 14:33 14:32 Constitutional: This is a well developed, well nourished patient who is awake, kb alert, and in no acute distress. Head/Face: Normocephalic, atraumatic. ENT: Moist Mucous membranes Cardiovascular: Regular rate Respiratory: Respirations even and unlabored. No increased work of breathing. Talking in full sentences Abdomen/GI: Soft, non-tender. No distention Skin: Warm, dry with normal turgor. Normal color. MS/ Extremity: Pulses equal, no cyanosis. Neurovascular intact. Full, normal range of motion. Neuro: Awake and alert, GCS 15, oriented to person, place, time, and situation. Moves all extremities. Normal gait. kb 15:36 15:35 ED course: Blood pressure responding to 500ml bolus of IVF. . kb kb 18:41 16:19 Telemetry/MedSurg (Inpatient) kb ph 18:41 16:19 kb ph 22:25 18:41 [facility] ER HOLD ph cg 22:25 18:41 ERHOLD- ph cg
--- NOTE | 2023-12-07 16:19 | ER ---
Nurse's Notes [facility] Name: Luisa Sanchez Age: 83 yrs Sex: Female : 1940 Arrival Date: 12/07/2023 Time: 14:06 Bed 19 Private MD: Diagnosis: Pneumonia, unspecified organism;Hypotension, unspecified;Unspecified atrial fibrillation;Severe sepsis with septic shock Presentation: 12/07 14:21 Chief complaint: EMS states: dialysis called EMS for pthaving low BP and high HR. as6 Coronavirus screen: At this time, the client does not indicate any symptoms associated with coronavirus-19. Ebola Screen: No symptoms or risks identified at this time. Initial Sepsis Screen: Does the patient meet any 2 criteria? No. Patient's initial sepsis screen is negative. Does the patient have a suspected source of infection? No. Patient's initial sepsis screen is negative. Risk Assessment: Do you want to hurt yourself or someone else? Patient reports no desire to harm self or others. Onset of symptoms was December 07, 2023. 14:21 Acuity: ELIEZER 2 as6 14:21 Method Of Arrival: EMS: [facility] as6 Historical: - Allergies: 14:22 No Known Allergies; as6 - PMHx: 14:22 Diabetes - NIDDM; Hyperlipidemia; Hypertension; kidney disease; as6 - PSHx: 14:22 hip (kidney disease); foot (kidney disease); Stented artery; as6 - Immunization history:: Adult Immunizations up to date. - Social history:: Smoking status: Patient reports the use of cigarette tobacco products, smokes two packs cigarettes per day. Screenin:[address] [facility] ED Fall Risk Assessment (Adult) Score/Fall Risk Level 0 - 2 = Low Risk. Abuse as6 screen: Denies threats or abuse. Denies injuries from another. Nutritional screening: No deficits noted. Tuberculosis screening: No symptoms or risk factors identified. Assessment: 14:35 General: Appears in no apparent distress. slender, Behavior is calm, cooperative, as6 Reports fatigue for. Pain: Complains of pain in head Quality of pain is described as aching. Neuro: Level of Consciousness is awake, alert, obeys commands, Oriented to person, place, time, situation, Reports headache. Cardiovascular: Denies chest pain, shortness of breath, Rhythm is atrial fibrillation with rapid ventricular response. Respiratory: Respiratory effort is even, unlabored, Respiratory pattern is regular, symmetrical. GI: Reports vomiting and abdominal pain yesterday. : No deficits noted. No signs and/or symptoms were reported regarding the genitourinary system. EENT: Reports sore throat . 15:06 General: provider aware of BP. as6 15:46 Reassessment: Patient appears in no apparent distress at this time. Patient and/or nj1 family updated on plan of care and expected duration. Pain level reassessed. Patient is alert, oriented x 3, equal unlabored respirations, skin warm/dry/pink. 17:00 Reassessment: Patient appears in no apparent distress at this time. Patient and/or nj1 family updated on plan of care and expected duration. Pain level reassessed. Patient is alert, oriented x 3, equal unlabored respirations, skin warm/dry/pink. 18:26 Reassessment: Patient appears in no apparent distress at this time. Patient and/or nj1 family updated on plan of care and expected duration. Pain level reassessed. Patient is alert, oriented x 3, equal unlabored respirations, skin warm/dry/pink. Patient states feeling better. 23:16 Reassessment: report given to ALDO Romero. ha1 Vital Signs: 14:21 BP 93 / 53; Pulse 139; Resp 18 S; Temp 97.9(O); Pulse Ox 99% on R/A; Weight 49.44 kg as6 (R); Height 5 ft. 4 in. (R); Pain 5/10; 15:05 BP 77 / 54; Pulse 119; Resp 17 S; Pulse Ox 97% on R/A; as6 15:15 BP 106 / 59; Pulse 110; kb 15:24 BP 119 / 63; Pulse 121; Resp 19; Pulse Ox 97% on R/A; nj1 15:45 BP 116 / 77; Pulse 123; Resp 20; Temp 97.9(TE); Pulse Ox 95% on R/A; nj1 16:09 BP 98 / 66; Pulse 104; Resp 21; Pulse Ox 97% ; MAP 74 mmHg; nj1 17:00 BP 116 / 58; Pulse 74; Resp 20; Pulse Ox 98% on R/A; nj1 18:22 BP 124 / 51; Pulse 65; Resp 18; Pulse Ox 100% on R/A; nj1 14:21 Body Mass Index 18.71 (49.44 kg, 162.56 cm) as6 14:21 Pain Scale: Adult as6 ED Course: 14:18 Patient arrived in ED. kb 14:18 [place] [facility] kb 14:18 Zain Franks MD is Attending Physician. kb 14:21 Arm band placed on. as6 14:22 Triage completed. as6 14:33 Bed in low position. Call light in reach. Side rails up X2. Client placed on continuous as6 cardiac and pulse oximetry monitoring. NIBP monitoring applied. 14:37 CT Abd/Pelvis - Without Contrast In Process Unspecified. EDMS 14:44 Chest Single View XRAY In Process Unspecified. EDMS 14:55 Inserted saline lock: 20 gauge in right antecubital area, using aseptic technique. as6 Blood collected. 15:23 Elenita Mcconnell RN is Primary Nurse. nj1 16:19 Jass Gandhi MD is Hospitalizing Provider. kb 19:00 Report given to Milka CARLSON. nj1 23:18 No provider procedures requiring assistance completed. Patient admitted, IV remains in ha1 place. 12/08 00:15 Provided Education on: need for admit . ha1 Administered Medications: 12/07 14:55 Drug: NS 0.9% IV 500 ml IV at bolus once Route: IV; Rate: bolus; Site: right as6 antecubital; 15:27 Follow up: Response: No adverse reaction; IV Status: Completed infusion; IV Intake: nj1 500ml 15:36 Drug: Rocephin IV 1 grams IV at calculated rate once; Given slow IV push per pharmacy nj1 instructions Route: IV; Rate: calculated rate; Site: right antecubital; 15:40 Follow up: Response: No adverse reaction; IV Status: Completed infusion; IV Intake: [id number] 15:42 Drug: Zithromax IVPB 500 mg IVPB once over 1 hrs; mix in 250 mL NS Route: IVPB; Infused nj1 Over: 1 hrs; Site: right antecubital; 16:40 Follow up: IV Status: Completed infusion; IV Intake: 250ml nj1 15:50 Drug: Diltiazem IVP 10 mg IVP once; Over 2 minutes Route: IVP; Site: right antecubital; nj1 16:30 Follow up: Response: No adverse reaction nj1 19:51 Drug: levofloxacin IVPB 750 mg 150 ml IVPB once over 90 mins Volume: 150 ml; Route: ha1 IVPB; Infused Over: 90 mins; Site: right antecubital; 20:42 Follow up: Response: No adverse reaction; IV Status: Infusion continued; IV Intake: ha1 100ml Medication: 23:18 VIS not applicable for this client. ha1 Point of Care Testing: Blood Glucose: 15:05 Blood Glucose: 150 mg/dL; as6 Ranges: Intake: 15:27 IV: 500ml; Total: 500ml. nj1 15:40 IV: 10ml; Total: 510ml. nj1 16:40 IV: 250ml; Total: 760ml. nj1 20:42 IV: 100ml; Total: 860ml. ha1 Outcome: 16:19 Decision to Hospitalize by Provider. kb 23:18 Condition: stable ha1 12/08 00:15 Admitted to Med/surg accompanied by nurse, via stretcher, room 215, with chart, 1 Discharge instructions given to patient, family, Instructed on the need for admit, Demonstrated understanding of instructions, 00:16 Patient left the ED. 1 Signatures: Dispatcher [employer] EDIndia Spear, CHRIS LUZ-Car Cody RN RN as6 Milka Antunez RN RN ha1 Elenita Mcconnell RN RN nj1
[2023-12-07] MEDS ORDERED: Levofloxacin 750mg IV 750 MG/150 ML BAG IV ONE (18:46)
[2023-12-07] MEDS ORDERED: ACETAMINOPHEN 500 MG TAB PO PRN (20:49)
[2023-12-07 21:23] LABS: White Blood Cell Scan OK (OK)
[2023-12-07 21:24] LABS: Anisocytosis SLIGHT; Blood Morphology Comment NOTED (NOT SEEN); Platelet Estimate ADEQ
--- NOTE | 2023-12-07 22:00 | P.SSS ---
Patient History Date of Service: 12/07/23 Reason for admission: WEAKNESS, LOW BP, ABDOMEN PAIN History of Present Illness: VENESSA IS A HEAVY SMOKER WHO DELAYED HD BY A DAY SHE DID NOT FEEL GOOD WITH NAUSEA, DIARRHEA ETC. TODAY AT HD HER BP DROPPED, THEY GAVE 1 LT FLUID BACK TO HER. SHE WAS BROUGHT OT ER ADN IS FOUND TO HAVE R SIDE PNEUMONIA. SHE HAS NO PNEUMONIA RELATED SYMPTOM. SHE HAD EPIG PAIN TODAY. Allergies No Known Allergies Allergy (Verified 01/20/19 02:24) Home medications list reviewed: Yes Home Medications: Atorvastatin Calcium 40 mg PO BEDTIME 01/11/19 Apixaban [Eliquis *] 2.5 mg PO BID #60 tablet 02/01/19 Amlodipine [Norvasc*] 5 mg PO BEDTIME 10/02/23 Clopidogrel Bisulfate [Plavix*] 1 tab PO DAILY 10/02/23 Colesevelam HCl [Welchol] 1 tab PO BID 10/02/23 Cyanocobalamin (Vitamin B-12) [Vitamin B-12] 1 tab PO DAILY 10/02/23 Lisinopril [Zestril] 10 mg PO BEDTIME 10/02/23 Metoprolol Succinate [Toprol Xl*] 25 mg PO BID 10/02/23 Sevelamer Carbonate [Renvela*] 800 mg PO TID 10/02/23 Sitagliptin Phosphate [Januvia] 25 mg PO DAILY 10/02/23 Vitamin D [Drisdol*] 50,000 unit PO Q48H #15 cap 10/03/23 - Past Medical/Surgical History Diabetic: Yes -: HTN -: prolapse uterus -: hyperlipedemia -: AFIB -: Rt ear sx- child -: cataract surgery bliateral -: ORIF left hip 01/12/19 - Family History Father -: Diabetes, Cancer, Kidney disease Mother -: Cancer Notes: - Social History Alcohol use: No CD- Drugs: No Caffeine use: Yes Review of Systems 10-point ROS is otherwise unremarkable General: Weakness Physical Examination - Vital Signs Temperature: 98.6 F Blood Pressure: 129/95 Pulse: 79 Respirations: 17 Pulse Ox (%): 97 - Physical Exam General: Oriented x3, Mild distress HEENT: Atraumatic, PERRLA, Mucous membr. moist/pink, EOMI, Sclerae nonicteric Neck: Supple, 2+ carotid pulse no bruit, No LAD, Without JVD or thyroid abnormality Respiratory: Clear to auscultation bilaterally, Normal air movement Cardiovascular: Regular rate/rhythm, Normal S1 S2 Gastrointestinal: Normal bowel sounds, No tenderness Musculoskeletal: No tenderness Integumentary: No rashes Neurological: Normal gait, Normal speech, Normal strength at 5/5 x4 extr, Normal tone, Normal affect Lymphatics: No axilla or inguinal lymphadenopathy - Studies Laboratory Data (last 24 hrs) 12/07/23 12/07/23 12/07/23 15:00 15:00 15:00 WBC 9.50 Hgb 10.5 L Hct 32.0 L Plt Count 155 PT 13.7 H INR 1.25 APTT 35.1 Sodium 137 Potassium 3.7 BUN 33 H Creatinine 3.15 H Glucose 154 H Total Bilirubin 0.7 AST 9 L ALT 18 Alkaline Phosphatase 83 Microbiology Data (last 24 hrs): 12/07/23 15:00 Nasopharnyx Influenza Type A Antigen Screen - Final 12/07/23 15:00 Nasopharnyx Influenza Type B Antigen Screen - Final 12/07/23 15:00 Throat Group A Streptococcus Rapid Screen - Final - Diagnosis (Problem(s)) (1) Bacterial pneumonia Current Visit: Yes Status: Acute Plan: LEAQUIN ORALLY AT DC STABLE NO PNEUMONIA SS HEAVY SMOKER KNOWS SHE CAN HAVE CANCER. DOES NOT WANT AND FAMILY DOES NOW WANT HER TO QUIT IT IS IMPOSSIBLE. (2) Epigastric pain Current Visit: Yes Status: Acute Plan: CE, 3 CHECK SONOGRAM OF ABDOMEN GB WALL. (3) Cholelithiases Current Visit: Yes Status: Chronic (4) CKD, patient preferred treatment modality in-center hemodialysis Current Visit: Yes Status: Chronic Plan: PROGNOSIS IS GUARDED. - Disposition Disposition: ROUTINE DISCHARGE
[2023-12-08 01:01] VITALS: BMI 20.3
[2023-12-08 05:33] LABS: Absolute Lymphocytes (CBC) 0.7 K/uL (0.7-4.9); Hematocrit 25.9 % (36.0-45.0); MCV 88.5 fL (80-100); MPV 8.3 fL (7.6-11.3); Platelets 132 thou/uL (152-406); RBC Red Blood Cell Count 2.93 M/uL (3.86-4.86)
[2023-12-08 05:43] LABS: Potassium 4.4 mEq/L (3.5-5.1)
[2023-12-08] MEDS ORDERED: INFLUENZA VACCINE (for 6+ mo) 0.5 ML DOSE IMVAC ONE (08:00)
[2023-12-08] MEDS ORDERED: PNEUMOCOCCAL VACCINE 0.5 ML IMVAC ONE ×2 (08:00→14:00)
--- NOTE | 2023-12-08 08:43 | P.CNS ---
Date of Consult: 12/08/23 Reason for Consult: ESRD Requesting Physician: Jass Gandhi V Primary Care Provider: Dr. Gandhi Chief Complaint: WEAKNESS, LOW BP, ABDOMEN PAIN History of Present Illness: VENESSA IS A HEAVY SMOKER WHO DELAYED HD BY A DAY SHE DID NOT FEEL GOOD WITH NAUSEA, DIARRHEA ETC. TODAY AT HD HER BP DROPPED, THEY GAVE 1 LT FLUID BACK TO HER. SHE WAS BROUGHT OT ER ADN IS FOUND TO HAVE R SIDE PNEUMONIA. SHE HAS NO P NEUMONIA RELATED SYMPTOM. SHE HAD EPIG PAIN TODAY. 16:19 This 83 yrs old Female presents to ER via EMS with complaints of hypotension. kyung 16:19 Patient is an 83-year-old female who presents for hypotension and tachycardia that kb began at dialysis just prior to arrival. Reports she has had abdominal pain, vomiting and loose stools for 3 days. Denies fever. States she normally goes to dialysis Wednesday, Wednesday and Wednesday but was not feeling well enough to go yesterday. Went to dialysis today and had a drop in blood pressure and elevation of heart rate while being dialyzed so they stopped dialysis and called 911 to bring her to the ER. Patient is awake, alert and oriented. She is feeling better today than yesterday. Allergies No Known Allergies Allergy (Verified 12/08/23 03:58) Home medications list reviewed: Yes Home Medications: Atorvastatin Calcium 40 mg PO BEDTIME 01/11/19 Apixaban [Eliquis *] 2.5 mg PO BID #60 tablet 02/01/19 Amlodipine [Norvasc*] 5 mg PO BEDTIME 10/02/23 Clopidogrel Bisulfate [Plavix*] 1 tab PO DAILY 10/02/23 Cyanocobalamin (Vitamin B-12) [Vitamin B-12] 1 tab PO DAILY 10/02/23 Lisinopril [Zestril] 10 mg PO BEDTIME 10/02/23 Metoprolol Succinate [Toprol Xl*] 25 mg PO BID 10/02/23 Sevelamer Carbonate [Renvela*] 800 mg PO TIDWM 10/02/23 Sitagliptin Phosphate [Januvia] 25 mg PO DAILY 10/02/23 Cholecalciferol (Vitamin D3) [Vitamin D3] 1 cap PO DAILY 12/08/23 Vit A/Vit C/Vit E/Zinc/Copper [Icaps Areds Softgel] 1 cap PO BID 12/08/23 - Past Medical/Surgical History Diabetic: Yes -: HTN -: prolapse uterus -: HLD -: AFIB -: ESRD (Dr. Alfred/ Dr. Wilkinson) -: Rt ear sx- child -: cataract surgery bliateral -: ORIF left hip 01/12/19 - Family History Father Medical History: Diabetes, Cancer, Kidney disease Mother Medical History: Cancer Notes: - Social History Smoking Status: Current every day smoker Alcohol use: No CD- Drugs: No Caffeine use: No Place of Residence: Home Review of Systems 10-point ROS is otherwise unremarkable General: Weakness, Malaise Physical Examination Temp Pulse Resp BP Pulse Ox 98.1 F 70 17 132/60 97 12/08/23 04:00 12/08/23 04:00 12/08/23 04:00 12/08/23 04:00 12/08/23 04:00 General: In no apparent distress, Oriented x3, Cooperative HEENT: Atraumatic Neck: Supple Respiratory: Clear to auscultation bilaterally Cardiovascular: No edema Gastrointestinal: Soft and benign, Non-distended Musculoskeletal: No clubbing, No contractures Integumentary: No rashes, No cyanosis Neurological: Normal speech Laboratory Data (last 24 hrs) 12/07/23 12/07/23 12/07/23 15:00 15:00 15:00 WBC 9.50 Hgb 10.5 L Hct 32.0 L Plt Count 155 PT 13.7 H INR 1.25 APTT 35.1 Sodium 137 Potassium 3.7 BUN 33 H Creatinine 3.15 H Glucose 154 H Total Bilirubin 0.7 AST 9 L ALT 18 Alkaline Phosphatase 83 Imagings Data: EXAM DESCRIPTION: CT - Abdomen Pelvis Wo Contrast - 12/07/2023 2:36 pm CLINICAL HISTORY: Abdominal pain. ABD PAIN COMPARISON: No comparisons TECHNIQUE: CT imaging of the abdomen and pelvis was performed without contrast. Solid organ, bowel and vascular assessment is limited due to lack of IV and oral contrast. All CT scans are performed using dose optimization technique as appropriate and may include automated exposure control or mA/KV adjustment according to patient size. FINDINGS: Airspace opacity is seen in the right lower lobe with small right pleural effusion. Trace left pleural fluid. Cholelithiasis. No aggressive liver lesion or biliary dilatation. The spleen, pancreas, adrenal glands kidneys show no abnormality on noncontrast assessment. Thickened small bowel loops as well as gas-filled and stool filled colon noted which are mildly distended. The appendix is normal. Marked pelvic floor laxity is seen with the urinary bladder completely prolapsed. The osseous structures are within normal limits. IMPRESSION: Cholelithiasis. Airspace opacity in the right lung base with small right pleural effusion favors pneumonia. Marked pelvic floor laxity is seen with complete prolapse of the urinary bladder seen. A limited non-contrast examination was performed as detailed. EXAM DESCRIPTION: RAD - Chest Single View - 12/07/2023 2:42 pm CLINICAL HISTORY: COUGH Chest pain. COMPARISON: <Comparisons> FINDINGS: Portable technique limits examination quality. Moderate opacity is seen in the right lung base likely infiltrate and right pleural fluid. The heart is moderately enlarged. No displaced fractures. IMPRESSION: Moderate right base pneumonia suspected. [id number] EXAM DESCRIPTION: US - Abdomen Exam Complete - 12/08/2023 9:34 am CLINICAL HISTORY: Abdominal pain COMPARISON: December 07, 2023 CT FINDINGS: The liver has normal echotexture. 1.2 centimeter stone within the neck of the gallbladder The gallbladder wall is not thickened. The biliary tree is normal caliber. The pancreas is normal in size and echotexture The right kidney measures 9 centimeters with increased echotexture. The left kidney measures 8 centimeters with increased echotexture. 1.5 centimeter cyst The spleen measures 9 centimeters. Splenic granulomata Abdominal aorta/IVC do not demonstrate a significant abnormality IMPRESSION: Cholelithiasis without evidence cholecystitis Increased renal echotexture indicative of parenchymal disease [id number] EXAM DESCRIPTION: CT - Thorax W/ Con - 12/08/2023 9:32 am CLINICAL HISTORY: Chest pain COMPARISON: None TECHNIQUE: Computed axial tomography of the chest was obtained. 100 cc Isovue 300 was administered [address] All CT scans are performed using dose optimization technique as appropriate and may include automated exposure control or mA/KV adjustment according to patient size. FINDINGS: Moderate right pleural effusion. Right lower lobe opacities. Small left pleural effusion. Minimal left lower lobe atelectasis. No mediastinal lymphadenopathy. Mild right hilar lymphadenopathy IMPRESSION: Moderate right pleural effusion. Right lower lobe opacities probably a combination of atelectasis and pneumonia. Mild right hilar lymphadenopathy may be reactive in nature. Followup CT in 2-3 months recommended for re-evaluation Conclusions/Impression: ESRD on HD TTS -Acute HD today HTN with CKD/ CHF Afib -DC Lisinopril and Start Losartan -Change Metoprolol to Atenolol Diastolic CHF, chronic -HD with UF Anemia in CKD -Retacrit qHD CKD MBD -Continue Renvela RLL PNA -Continue Abx Case reviewed with Dr. Gandhi Thank you kindly for the consultation
[2023-12-08] MEDS ORDERED: ENOXAPARIN 30 MG/0.3 ML SQ SCH (09:00)
--- NOTE | 2023-12-08 10:04 | P.PN ---
Subjective Date of Service: 12/08/23 Primary Care Provider: Dr. Gandhi Chief Complaint: WEAKNESS, LOW BP, ABDOMEN PAIN Subjective: Improving SHE IS LOT BETTER NO ABDOMEN PAIN TODAY NEVER HAD ANY RESPIRATORY SS. HAS CKD ON HD. Review of Systems 10-point ROS is otherwise unremarkable General: Weakness Physical Examination - Vital Signs Temperature: 98.1 F Blood Pressure: 132/60 Pulse: 70 Respirations: 17 Pulse Ox (%): 97 - Physical Exam General: Oriented x3, Mild distress HEENT: Atraumatic, PERRLA, EOMI Neck: Supple, JVD not distended Respiratory: Clear to auscultation bilaterally, Normal air movement Cardiovascular: Regular rate/rhythm, Normal S1 S2 Gastrointestinal: Normal bowel sounds, No tenderness Musculoskeletal: No tenderness Integumentary: No rashes Neurological: Normal speech, Normal tone, Normal affect Lymphatics: No axilla or inguinal lymphadenopathy - Studies Laboratory Data (last 24 hrs) 12/07/23 12/07/23 12/07/23 15:00 15:00 15:00 WBC 9.50 Hgb 10.5 L Hct 32.0 L Plt Count 155 PT 13.7 H INR 1.25 APTT 35.1 Sodium 137 Potassium 3.7 BUN 33 H Creatinine 3.15 H Glucose 154 H Total Bilirubin 0.7 AST 9 L ALT 18 Alkaline Phosphatase 83 Microbiology Data (last 24 hrs): 12/07/23 15:00 Throat Group A Streptococcus Rapid Screen - Final 12/07/23 15:00 Nasopharnyx Influenza Type A Antigen Screen - Final 12/07/23 15:00 Nasopharnyx Influenza Type B Antigen Screen - Final Medications List Reviewed: Yes Assessment And Plan - Current Problems (Diagnosis) (1) Bacterial pneumonia Current Visit: Yes Status: Acute Plan: LEAQUIN ORALLY AT DC STABLE NO PNEUMONIA SS HEAVY SMOKER KNOWS SHE CAN HAVE CANCER. DOES NOT WANT AND FAMILY DOES NOW WANT HER TO QUIT IT IS IMPOSSIBLE. CT CHEST W CON TODAY. I CALLED DR LEUNG. FROM ROOM AND ARRANGED FOR HD AFTER CT NEEDED SHE IS SMOKER AND THE PNEUMONIA IS NOT SYMPTOMATIC SOMEHOW. (2) Epigastric pain Current Visit: Yes Status: Acute Plan: CE, 3 CHECK SONOGRAM OF ABDOMEN GB WALL. SONO DONE REPORT PENDING. (3) Cholelithiases Current Visit: Yes Status: Chronic (4) CKD, patient preferred treatment modality in-center hemodialysis Current Visit: Yes Status: Chronic Plan: PROGNOSIS IS GUARDED.
[2023-12-08] MEDS ORDERED: NA CHLORIDE 0.9% 1,000 ML IV PRN (10:10)
[2023-12-08] MEDS ORDERED: MANNITOL 25% 12.5 GM/50 ML VIAL IV PRN (10:10)
[2023-12-08] MEDS ORDERED: EPOETIN ALFA 10,000 UNIT/ML VIAL IV SCH (10:15)
--- NOTE | 2023-12-08 10:17 | RAD REPORT ---
EXAM DESCRIPTION: US - Abdomen Exam Complete - 12/08/2023 9:34 am CLINICAL HISTORY: Abdominal pain COMPARISON: December 07, 2023 CT FINDINGS: The liver has normal echotexture. 1.2 centimeter stone within the neck of the gallbladder The gallbladder wall is not thickened. The bi liary tree is normal caliber. The pancreas is normal in size and echotexture The right kidney measures 9 centimeters with increased echotexture. The left kidney measures 8 centimeters with increased echotexture. 1.5 centimeter cyst The spleen measures 9 centimeters. Splenic granulomata Abdominal aorta/IVC do not demonstrate a significant abnormality IMPRESSION: Cholelithiasis without evidence cholecystitis Increased renal echotexture indicative of parenchymal disease
--- NOTE | 2023-12-08 10:29 | RAD REPORT ---
EXAM DESCRIPTION: CT - Thorax W/ Con - 12/08/2023 9:32 am CLINICAL HISTORY: Chest pain COMPARISON: None TECHNIQUE: Computed axial tomography of the chest was obtained. 100 cc Isovue 300 was administered i ntravenously. All CT scans are performed using dose optimization technique as appropriate and may include automated exposure control or mA/KV adjustment according to patient size. FINDINGS: Moderate right pleural effusion. Right lower lobe opacities. Small left pleural effusion. Minimal left lower lobe atelectasis. No mediastinal lymphadenopathy. Mild right hilar lymphadenopathy IMPRESSION: Moderate right pleural effusion. Right lower lobe opacities probably a combination of at electasis and pneumonia. Mild right hilar lymphadenopathy may be reactive in nature. Followup CT in 2-3 months recommended for re-evaluation
[2023-12-08] MEDS ORDERED: ALBUMIN HUMAN 25% 50 ML IV SCH (11:00)
[2023-12-08] MEDS: SEVELAMER CARBONATE 800 MG TABLET PO SCH ×3 (12:00→16:22)
[2023-12-08 13:06] LABS: Hepatitis B surface AG Interp. Nonreactive (Nonreactive)
[2023-12-08 13:07] LABS: Hepatitis B Surface Ab - Quant < 3.10 mIU/mL (<8.0)
--- NOTE | 2023-12-08 17:25 | EKG ---
Test Date: 2023-12-07 Test Time: 14:27:24 Shuttle Bus Driver: MEASUREMENT RESULTS: Intervals: Rate: 122 HI: QRSD: 88 QT: 348 QTc: 495 Willet: P: HI: QRS: -31 T: 108 INTERPRETIVE STATEMENTS: Atrial fibrillation with rapid ventricular response with premature ventricular or aberrantly conducted complexes Left axis deviation Septal infarct, age undetermined Marked ST abnormality, possible inferior subendocardial injury Abnormal ECG Compared to ECG 10/01/2023 22:48:14 Ventricular premature complex(es) now present Left-axis deviation now present Myocardial infarct finding now present ST (T wave) deviation now present Sinus rhythm no longer present Sinus arrhythmia no longer present Electronically Signed On 12-08-23 17:23:21 JUNIOR BUYER by Willie Nogueira
[2023-12-08] MEDS ORDERED: METOPROLOL XL 25 MG TAB PO SCH (21:00)
[2023-12-08] MEDS ORDERED: ATORVASTATIN 40 MG TAB PO SCH (21:00)
[2023-12-08] MEDS ORDERED: atenoloL 50 MG TAB PO SCH (21:00)
[2023-12-08] MEDS ORDERED: lisinopriL 10 MG TAB PO SCH (21:00)
[2023-12-08] MEDS: APIXABAN 2.5 MG TABLET PO SCH (21:39)
[2023-12-08] MEDS: LOSARTAN POTASSIUM 50 MG TABLET PO SCH (21:39)
[2023-12-09] MEDS: LOSARTAN POTASSIUM 50 MG TABLET PO SCH (08:57)
[2023-12-09] MEDS: SEVELAMER CARBONATE 800 MG TABLET PO SCH (08:57)
[2023-12-09] MEDS: APIXABAN 2.5 MG TABLET PO SCH (09:00)
[2023-12-09] MEDS ORDERED: HOME MED 1 EA UNK (Sitagliptin Phosphate [Januvia] 50 MG Tablet) PO SCH (09:00)
[2023-12-09] MEDS ORDERED: DRISDOL (VITAMIN D=ERGOCALCIFEROL) 50000 UNIT CAP PO SCH (09:00)
[2023-12-09] MEDS ORDERED: ALOGLIPTIN BENZOATE 6.25 MG TABLET PO SCH (09:00)
[2023-12-09] MEDS ORDERED: CLOPIDOGREL 75 MG TABLET PO SCH (09:00)
[2023-12-09 09:45] VITALS: BP 163/64; TEMP 98.8
--- NOTE | 2023-12-09 10:41 | P.PN ---
(S) Pt reports feeling better, denies dyspnea or pleurisy or CP, not needing O2 (O) vitals reviewed in the EMR General: In no apparent distress HEENT: Atraumatic, hard of hearing, not on O2 Neck: Supple Respiratory: MIldly reduced BS Rt base without rhonchi Cardiovascular: Non tachy, mostly regular Gastrointestinal: Soft and benign, Non-distended Musculoskeletal: Muscle mass loss Ext: No sig LE edema, UE AV access Integumentary: No rashes Neurological: Normal speech, awake, alert, non focal Laboratory Data (last 24 hrs) Reviewed in the EMR Imagings Data: EXAM DESCRIPTION: CT - Abdomen Pelvis Wo Contrast - 12/07/2023 2:36 pm CLINICAL HISTORY: Abdominal pain. ABD PAIN COMPARISON: No comparisons TECHNIQUE: CT imaging of the abdomen and pelvis was performed without contrast. Solid organ, bowel and vascular assessment is limited due to lack of IV and oral contrast. All CT scans are performed using dose optimization technique as appropriate and may include automated exposure control or mA/KV adjustment according to patient size. FINDINGS: Airspace opacity is seen in the right lower lobe with small right pleural effusion. Trace left pleural fluid. Cholelithiasis. No aggressive liver lesion or biliary dilatation. The spleen, pancreas, adrenal glands kidneys show no abnormality on noncontrast assessment. Thickened small bowel loops as well as gas-filled and stool filled colon noted which are mildly distended. The appendix is normal. Marked pelvic floor laxity is seen with the urinary bladder completely prolapsed. The osseous structures are within normal limits. IMPRESSION: Cholelithiasis. Airspace opacity in the right lung base with small right pleural effusion favors pneumonia. Marked pelvic floor laxity is seen with complete prolapse of the urinary bladder seen. A limited non-contrast examination was performed as detailed. EXAM DESCRIPTION: RAD - Chest Single View - 12/07/2023 2:42 pm CLINICAL HISTORY: COUGH Chest pain. COMPARISON: <Comparisons> FINDINGS: Portable technique limits examination quality. Moderate opacity is seen in the right lung base likely infiltrate and right pleural fluid. The heart is moderately enlarged. No displaced fractures. IMPRESSION: Moderate right base pneumonia suspected. [id number] EXAM DESCRIPTION: US - Abdomen Exam Complete - 12/08/2023 9:34 am CLINICAL HISTORY: Abdominal pain COMPARISON: December 07, 2023 CT FINDINGS: The liver has normal echotexture. 1.2 centimeter stone within the neck of the gallbladder The gallbladder wall is not thickened. The biliary tree is normal caliber. The pancreas is normal in size and echotexture The right kidney measures 9 centimeters with increased echotexture. The left kidney measures 8 centimeters with increased echotexture. 1.5 centimeter cyst The spleen measures 9 centimeters. Splenic granulomata Abdominal aorta/IVC do not demonstrate a significant abnormality IMPRESSION: Cholelithiasis without evidence cholecystitis Increased renal echotexture indicative of parenchymal disease [id number] EXAM DESCRIPTION: CT - Thorax W/ Con - 12/08/2023 9:32 am CLINICAL HISTORY: Chest pain COMPARISON: None TECHNIQUE: Computed axial tomography of the chest was obtained. 100 cc Isovue [address] was administered [address] All CT scans are performed using dose optimization technique as appropriate and may include automated exposure control or mA/KV adjustment according to patient size. FINDINGS: Moderate right pleural effusion. Right lower lobe opacities. Small left pleural effusion. Minimal left lower lobe atelectasis. No mediastinal lymphadenopathy. Mild right hilar lymphadenopathy IMPRESSION: Moderate right pleural effusion. Right lower lobe opacities probably a combination of atelectasis and pneumonia. Mild right hilar lymphadenopathy may be reactive in nature. Followup CT in 2-3 months recommended for re-evaluation Conclusions/Impression: ESRD on iHD MWF -Dialyzed yesterday, next dialysis at OP unit tmrw, stable metab profile HTN with CKD/ CHF Afib with RVR on admission and chronic paroxysmal history -Cont Metoprolol, cont Eliquis -Labile pressures at times, cont Amlodipine and Lisinopril Diastolic CHF, chronic -HD with UF NSTEMI, sig troponin leak (possible Type II ID) -No cardiology note seen but pt has no active CP, plans to see her Cardiology with [facility] next week. S/p PCI/NIDHI last year, cont Plavix
[2023-12-09 10:51] VITALS: O2SAT 92
[2023-12-09] MEDS ORDERED: Levofloxacin500mg IV 500 MG/100 ML BAG IV SCH (19:00)
--- NOTE | 2023-12-09 19:51 | CON ---
Date of Consultation: 12/08/2023 Reason For Consultation: Elevated troponin. History Of Present Illness: A pleasant 83-year-old female, history of coronary artery disease, end-s tage renal disease, on hemodialysis, hypertension, dyslipidemia, atrial fibrillation, on Eliquis, com es in after dialysis session. She had an episode of palpitations and then started having pain betwee n her shoulder blades, lasted for about 30 to 45 minutes and resolved when the heart rate went down. Troponin was elevated at 8000 and started to come down. Evaluated at bedside. She said she has no chest pain, but she does have coronary artery disease, status post recent stent placement by Dr. La dodd and he told her that there is another artery needs a stent, but it was difficult to intervene upon. Her symptoms are completely resolved and doing clinically well. Past Medical History: As outlined above in the HPI. Medications: Refer to reconciliation sheet for detailed list. Allergies: NO KNOWN DRUG ALLERGIES. Family History: No premature coronary artery disease or cancer. Social History: She does not smoke or drink. Does not use any drugs. Review of Systems: All systems reviewed and they are negative except as mentioned in the HPI. Physical Examination: Vital Signs: Reviewed. Head and Neck: Pupils are equal, reactive to light. Intact eye movements. No JVD. No cervical lym phadenopathy. Neck is supple. Thyroid is not enlarged. Lungs: Clear to auscultation bilaterally. No rhonchi, wheezing, crackles. No accessory muscle use. Heart: Regular rate and rhythm. No extra sounds. Abdomen: Soft, nontender. Bowel sounds positive. No organomegaly. No masses or hernia. No rigidi ty or rebound. Extremities: No clubbing, cyanosis. Intact pulses. Skin: No rash. Neurologic: Alert, awake, oriented x3. No focal deficits appreciated. Investigations: Her BUN is 41, creatinine 3.6. Troponin 7862, went down to 6166. Assessment/recommendation: 1.[id number] myocardial infarction. I recommend coronary angiogram. However, she feels well and she wants to follow up with her primary glassworker on this matter. I recommend observation ove rnight and baby aspirin 81 mg daily as well as the anti-platelet therapy that she is on post the sten t including Plavix and she is on Eliquis, to continue that and monitor. If no further symptoms, she may be discharged tomorrow to follow up with her primary glassworker. 2.Dyslipidemia. Continue statin. 3.End-stage renal disease, on hemodialysis. 4.Atrial fibrillation is controlled. Continue current management including Eliquis. /MODL Voice ID: [id number] Report ID: [id number]
--- NOTE | 2023-12-09 20:00 | PN ---
Date of Progress Note: 12/09/2023 Subjective: Seen by bedside, doing well. No further symptoms. Feels well and she wants to go home. Review of Systems: No chest pain, shortness of breath, orthopnea, cough, nausea, vomiting, diarrhea. All other systems reviewed and they are negative. Physical Examination: Vital Signs: Reviewed. Head and Neck: Pupils are equal, reactive to light. Intact eye movements. No JVD. No cervical lym phadenopathy. Neck is supple. Thyroid is not enlarged. Lungs: Clear to auscultation bilaterally. No rhonchi, wheezing, or crackles. No accessory muscle u se. Heart: Irregular. No extra sounds. Abdomen: Soft, nontender. Bowel sounds positive. No organomegaly. No masses or hernia. No rigidi ty or rebound. Extremities: No edema, clubbing, or cyanosis. Intact pulses. Skin: No rash. Neurologic: Alert, awake, oriented x3. No acute focal deficits appreciated. Lymph Nodes: No cervical or axillary lymphadenopathy. Investigations: Labs were reviewed. Assessment/recommendation: 1.Elevated troponin suggestive of non-ST elevation myocardial infarction. She remained stable and s he wants to be discharged home to follow up with her primary citrus picker. Since she is symptoms eduardo e, continue Plavix and Eliquis as well as beta shaun and follow up with her primary citrus picker th is week. I called Dr. Sewell and updated him on the case and he will make efforts to see the patient soon. 2.Dyslipidemia. Continue statin. 3.Hypertension. Blood pressure is controlled. 4.End-stage renal disease, on hemodialysis. SR/MODL Voice ID: [id number] Report ID: [id number]
--- NOTE | 2023-12-09 21:57 | P.DS ---
Admission Date: 12/07/23 Discharge Date: 12/09/23 Primary Care Provider: Dr. Gandhi Disposition: ROUTINE DISCHARGE Discharge Condition: FAIR Reason for Admission: WEAKNESS, LOW BP, ABDOMEN PAIN - Problems (1) Bacterial pneumonia Status: Acute (2) Epigastric pain Status: Acute (3) Cholelithiases Status: Chronic (4) CKD, patient preferred treatment modality in-center hemodialysis Status: Chronic Brief History of Present Illness: VENESSA IS A HEAVY SMOKER WHO DELAYED HD BY A DAY SHE DID NOT FEEL GOOD WITH NAUSEA, DIARRHEA ETC. TODAY AT HD HER BP DROPPED, THEY GAVE 1 LT FLUID BACK TO HER. SHE WAS BROUGHT OT ER ADN IS FOUND TO HAVE R SIDE PNEUMONIA. SHE HAS NO PNEUMONIA RELATED SYMPTOM. SHE HAD EPIG PAIN TODAY. Hospital Course: VENESSA IS FEELING GREAT. SHE HAS NO CHEST PAIN. SHE WILL GO FOR CATH WITH HER CLIENT TECHNOLOGIES SPECIALIST. FAMILY AND SHE WANTS TO GO HOME. I CALLED IN [facility] IN ONE WEEK. Vital Signs/Physical Exam: Temp Pulse Resp BP Pulse Ox 98.8 F 66 18 163/64 H 95 12/09/23 08:00 12/09/23 08:00 12/09/23 08:00 12/09/23 08:00 12/09/23 08:00 Laboratory Data at Discharge: WBC 5.50 thou/uL (4.3-10.9) 12/08/23 04:47 Hgb 8.6 g/dL (12.0-15.0) L D 12/08/23 04:47 Hct 25.9 % (36.0-45.0) L 12/08/23 04:47 Plt Count 132 thou/uL (152-406) L 12/08/23 04:47 PT 13.7 SECONDS (9.5-12.5) H 12/07/23 15:00 INR 1.25 12/07/23 15:00 APTT 35.1 SECONDS (24.3-36.9) 12/07/23 15:00 Sodium 137 mEq/L (136-145) 12/08/23 04:47 Potassium 4.4 mEq/L (3.5-5.1) D 12/08/23 04:47 BUN 41 mg/dL (7-18) H 12/08/23 04:47 Creatinine 3.65 mg/dL (0.55-1.02) H 12/08/23 04:47 Glucose 131 mg/dL (74-106) H 12/08/23 04:47 Total Bilirubin 0.7 mg/dL (0.2-1.0) 12/07/23 15:00 AST 9 U/L (15-37) L 12/07/23 15:00 ALT 18 U/L (13-56) 12/07/23 15:00 Alkaline Phosphatase 83 U/L (45-117) 12/07/23 15:00 Home Medications: Atorvastatin Calcium 40 mg PO BEDTIME 01/11/19 Apixaban [Eliquis *] 2.5 mg PO BID #60 tablet 02/01/19 Amlodipine [Norvasc*] 5 mg PO BEDTIME 10/02/23 Clopidogrel Bisulfate [Plavix*] 1 tab PO DAILY 10/02/23 Cyanocobalamin (Vitamin B-12) [Vitamin B-12] 1 tab PO DAILY 10/02/23 Lisinopril [Zestril] 10 mg PO BEDTIME 10/02/23 Metoprolol Succinate [Toprol Xl*] 25 mg PO BID 10/02/23 Sevelamer Carbonate [Renvela*] 800 mg PO TIDWM 10/02/23 Sitagliptin Phosphate [Januvia] 25 mg PO DAILY 10/02/23 Cholecalciferol (Vitamin D3) [Vitamin D3] 1 cap PO DAILY 12/08/23 Vit A/Vit C/Vit E/Zinc/Copper [Icaps Areds Softgel] 1 cap PO BID 12/08/23 Levofloxacin [Levaquin] 250 mg PO DAILY #10 tab 12/09/23 New Medications: Levofloxacin [Levaquin] 250 mg PO DAILY #10 tab Followup: NONE,NONE [Primary Care Provider] -
== END 2023-12-09 10:43 | disposition home or self-care (01) | DRG 871 ==
LOC: ER 14:06 → ERHOLD 16:13 → 2ND 22:57
PROVIDERS: ADMIT Internal Medicine; ATTEND Internal Medicine
PROC: 5A1D70Z Performance of Urinary Filtration, Intermittent, Less than 6 Hours Per Day (ICD-10-PCS; principal; 2023-12-07)
DX: A41.9 Sepsis, unspecified organism (principal); I21.A1 Myocardial infarction type 2; R65.21 Severe sepsis with septic shock; N18.6 End stage renal disease; J15.9 Unspecified bacterial pneumonia; I50.32 Chronic diastolic (congestive) heart failure; I13.2 Hypertensive heart and chronic kidney disease with heart failure and with stage 5 chronic kidney disease, or end stage renal disease; E11.22 Type 2 diabetes mellitus with diabetic chronic kidney disease; D63.1 Anemia in chronic kidney disease; I48.91 Unspecified atrial fibrillation; E78.5 Hyperlipidemia, unspecified; K80.20 Calculus of gallbladder without cholecystitis without obstruction; F17.210 Nicotine dependence, cigarettes, uncomplicated; Z99.2 Dependence on renal dialysis; Z79.01 Long term (current) use of anticoagulants; Z79.02 Long term (current) use of antithrombotics/antiplatelets; Z11.52 Encounter for screening for COVID-19; Z79.899 Other long term (current) drug therapy
CPT/HCPCS: 36415; 71045; 71260; 74176; 76700; 80048; 80053; 82947; 83605; 84484; 85025; 85610; 85730; 86706; 87040; 87070; 87081; 87340; 87635; 87804; 90935; 93005; 94760; 96361; 96365; 96367; 96375; 99285; J0696; J7040; J7050; Q4081; Q9967

== ENCOUNTER → 2023-12-27 | Emergency (ER) | payer OTHER ==
[~2023-12-27] MED LIST: dilTIAZem HCL 25 MG/5 ML VIAL IV ONE
[2023-12-27 17:00] LABS: Absolute Lymphocytes (CBC) 0.4 K/uL (0.7-4.9); Hematocrit 27.3 % (36.0-45.0); Lymphocytes % 5.7 % (15.3-44.8); MCV 90.5 fL (80-100); MPV 8.5 fL (7.6-11.3); Platelets 130 thou/uL (152-406); RBC Red Blood Cell Count 3.02 M/uL (3.86-4.86)
--- NOTE | 2023-12-27 17:10 | RAD REPORT ---
EXAM DESCRIPTION: Ahsant Single View12/27/2023 4:59 pm CLINICAL HISTORY: Chest pain COMPARISON: November 2023 FINDINGS: Moderate right pleural effusion and small left pleural effusion Right basilar opacities probably atelectasis or pneumonia The upper lobes are clear. Heart is mildly to moderately enlarged
[2023-12-27 17:17] LABS: Potassium 3.8 mEq/L (3.5-5.1); Troponin High Sensitivity 31.1 pg/mL (<58.9)
--- NOTE | 2023-12-27 17:55 | EDPHYS ---
Physician Documentation [facility] Name: Luisa Sanchez Age: 83 yrs Sex: Female : 1940 Arrival Date: 12/27/2023 Time: 15:52 Bed 4 Private MD: ED Physician Zain Franks HPI: 12/27 16:03 This 83 yrs old Female presents to ER via Unassigned with complaints of chest ec2 pain, elevated HR. 16:03 Patient arrives today for evaluation of chest pain and elevated heart rate. Patient ec2 reports that she was undergoing her typical dialysis today, states that she began experiencing chest pressure after the dialysis session. Patient also was noted to be in A-fib with RVR with rates in the 150s to 160s per EMS. EMS had given her 20 mg of diltiazem. Patient reports improvement in her chest pain and actually complete resolution. Patient with history of atrial fibrillation.. Historical: - Allergies: 17:12 No Known Allergies; tl4 - Home Meds: 18:27 atorvastatin 40 mg oral tablet 1 tab every day at bedtime [Active]; amiodarone 200 mg tl4 oral tablet 1 tab daily [Active]; apixaban 2.5 mg oral tablet 1 tab 2 times per day [Active]; atenolol 50 mg Oral tablet 1 tabs daily [Active]; balsalazide 750 mg oral capsule 1 cap twice a day [Active]; lisinopril 20 mg Oral tablet 1 tab 2 times per day [Active]; metoprolol succinate 25 mg oral Tablet, Extended Release 24 hr 1 tab 2 times per day [Active]; pantoprazole 40 mg oral tablet, delayed release (enteric coated) 1 tab daily [Active]; Plavix 75 mg Oral tablet 1 tab daily [Active]; Velphoro 500 mg oral tablet,chewable 1 tab after meals [Active]; - PMHx: 17:12 Diabetes - NIDDM; Hypertension; Hyperlipidemia; kidney disease; Dialysis (kidney tl4 disease); - PSHx: 18:27 foot (d); hip (d); Stented artery; tl4 - Immunization history:: Adult Immunizations unknown. - Social history:: Smoking status: Patient reports the use of cigarette tobacco products, smokes one pack cigarettes per day. ROS: 16:03 Constitutional: as per hpi ec2 Exam: 16:03 Constitutional: GEN: NAD Head: atraumatic Eyes: EOMI Ears: External ears are ec2 normal. CV: tachycardia LUNGS: no respiratory distress ABD: non-distended SKIN: no evidence of rashes MSK: no evidence of trauma NEURO: moves all extremities equally Vital Signs: 16:13 BP 115 / 55; Pulse 106; Resp 20; Temp 98.5(O); Pulse Ox 96% on 2 lpm NC; Height 5 ft. 4 tl4 in. ; 16:50 BP 112 / 95; Pulse 88; Resp 16; Pulse Ox 97% on R/A; Pain 0/10; tl4 17:30 BP 120 / 50; Pulse 89; Resp 24; Pulse Ox 98% on R/A; tl4 18:25 BP 105 / 60; Pulse 99; Resp 22; Pulse Ox 95% on R/A; tl4 18:26 Weight 49.9 kg; tl4 16:50 Pain Scale: Adult tl4 MDM: 15:54 Patient medically screened. ec2 16:03 ED course: Patient arrives today for evaluation of chest pressure and elevated heart ec2 rate. Examination remarkable for tachycardic individual was in no acute distress. Will obtain lab work, EKG, chest x-ray for further assessment the patient complaint. Currently considered electrolyte disturbances, arrhythmia, anemia, ACS.. 16:52 Data reviewed: vital signs. ED course: EKG independently reviewed and interpreted by ec2 ok, shows atrial fibrillation with a rate of 110, no acute ST segment elevations, nonconcerning intervals, will give 25 mg of diltiazem.. 17:38 ED course: After diltiazem, patient with markedly improved heart rate, rates in the ec2 80s.. 17:39 ED course: Metabolic profile with expected renal dysfunction, CBC with anemia noted, ec2 BNP markedly elevated at 27,000, troponin within normal ranges at 31. Patient without marked work of breathing, no hypoxia noted. Chest x-ray shows pleural effusion. . 17:54 ED course: On reassessment patient with heart rates in the 80s and 90s. Patient does ec2 have fluid present on the chest x-ray however is not hypoxic and is not working hard to breathe. States that she feels comfortable return to home and will have her follow-up with her bird tender. Return precautions given.. 12/27 16:01 Order name: Basic Metabolic Panel; Complete Time: 17:39 ec2 12/27 16:01 Order name: CBC with Diff; Complete Time: 17:39 ec2 12/27 16:01 Order name: NT PRO-BNP; Complete Time: 17:39 ec2 12/27 16:01 Order name: Troponin HS; Complete Time: 17:39 ec2 12/27 16:01 Order name: XRAY Chest (1 view); Complete Time: 17:39 ec2 12/27 16:01 Order name: EKG; Complete Time: 16:01 ec2 12/27 16:01 Order name: Cardiac monitoring; Complete Time: 16:11 ec2 12/27 16:01 Order name: EKG - Nurse/Tech; Complete Time: 17:08 ec2 12/27 16:01 Order name: IV Saline Lock; Complete Time: 16:11 ec2 12/27 16:01 Order name: Labs collected and sent; Complete Time: 17:08 ec2 12/27 16:01 Order name: O2 Per Protocol; Complete Time: 16:11 ec2 12/27 16:01 Order name: O2 Sat Monitoring; Complete Time: 16:11 ec2 Administered Medications: 17:07 Drug: Diltiazem IVP 25 mg IVP once; Over 2 Minutes Route: IVP; Infused Over: 2 mins; tl4 Site: right wrist; 18:24 Follow up: Response: Cardiac rhythm changed tl4 Disposition Summary: 12/27/23 17:54 Discharge Ordered Notes: Location: Home ec2 Condition: Stable ec2 Diagnosis - Paroxysmal atrial fibrillation ec2 Followup: ec2 - With: Private Physician - When: - Reason: Recheck today's complaints Discharge Instructions: - Discharge Summary Sheet ec2 - Atrial Fibrillation ec2 Forms: - Medication Reconciliation Form ec2 - Thank You Letter ec2 - Antibiotic Education ec2 - Prescription Opioid Use ec2 - Patient Portal Instructions ec2 - Leadership Thank You Letter ec2 Critical care time excluding procedures: 17:38 Critical care time: Bedside Care: 30 minutes. Total time: 30 minutes ec2 Signatures: Dispatcher [employer] Zain Jenkins MD MD ec2 Harry Maguire RN RN tl4 Corrections: (The following items were deleted from the chart) 16:37 16:03 Patient arrives today for evaluation of chest pain and elevated heart rate. ec2 Patient reports that she was undergoing her typical dialysis today, states that she began experiencing chest pressure after the dialysis session. Patient also was noted to be in A-fib with RVR with rates in the 150s to 160s per EMS. EMS had given her 20 mg of diltiazem. Patient reports improvement in her chest pain and actually complete resolution.. ec2
--- NOTE | 2023-12-27 17:55 | ER ---
Nurse's Notes [facility] Name: Luisa Sanchez Age: 83 yrs Sex: Female : 1940 Arrival Date: 12/27/2023 Time: 15:52 Bed 4 Private MD: Diagnosis: Paroxysmal atrial fibrillation Presentation: 12/27 16:13 Chief complaint: EMS states: EMS reports pt c/o chest pressure after completing tl4 dialysis. EMS reports pt had HR in the 160s prior to cardizem administration. Pt currently denies all complaints other than pain at the IV site when it is touched. Coronavirus screen: At this time, the client does not indicate any symptoms associated with coronavirus-19. Ebola Screen: No symptoms or risks identified at this time. Initial Sepsis Screen: Does the patient meet any 2 criteria? No. Patient's initial sepsis screen is negative. Does the patient have a suspected source of infection? No. Patient's initial sepsis screen is negative. Risk Assessment: Do you want to hurt yourself or someone else? Patient reports no desire to harm self or others. Onset of symptoms. Onset of symptoms was December 27, 2023 at 15:00. 16:13 Acuity: ELIEZER 3 tl4 16:13 Method Of Arrival: EMS: [facility] tl4 Triage Assessment: 17:14 General: Appears in no apparent distress. Behavior is calm, cooperative. Pain: Denies tl4 pain. EENT: No deficits noted. No signs and/or symptoms were reported regarding the EENT system. Neuro: No deficits noted. Denies weakness blurred vision difficulty swallowing. Cardiovascular: No deficits noted. Denies chest pain, diaphoresis, fatigue. Respiratory: Denies cough, shortness of breath. GI: No deficits noted. No signs and/or symptoms were reported involving the gastrointestinal system. : No deficits noted. No signs and/or symptoms were reported regarding the genitourinary system. Derm: No deficits noted. No signs and/or symptoms reported regarding the dermatologic system. Historical: - Allergies: 17:12 No Known Allergies; tl4 - Home Meds: 18:27 atorvastatin 40 mg oral tablet 1 tab every day at bedtime [Active]; amiodarone 200 mg tl4 oral tablet 1 tab daily [Active]; apixaban 2.5 mg oral tablet 1 tab 2 times per day [Active]; atenolol 50 mg Oral tablet 1 tabs daily [Active]; balsalazide 750 mg oral capsule 1 cap twice a day [Active]; lisinopril 20 mg Oral tablet 1 tab 2 times per day [Active]; metoprolol succinate 25 mg oral Tablet, Extended Release 24 hr 1 tab 2 times per day [Active]; pantoprazole 40 mg oral tablet, delayed release (enteric coated) 1 tab daily [Active]; Plavix 75 mg Oral tablet 1 tab daily [Active]; Velphoro 500 mg oral tablet,chewable 1 tab after meals [Active]; - PMHx: 17:12 Diabetes - NIDDM; Hypertension; Hyperlipidemia; kidney disease; Dialysis (kidney tl4 disease); - PSHx: 18:27 foot (d); hip (d); Stented artery; tl4 - Immunization history:: Adult Immunizations unknown. - Social history:: Smoking status: Patient reports the use of cigarette tobacco products, smokes one pack cigarettes per day. Screenin:22 [facility] ED Fall Risk Assessment (Adult) History of falling in the last 3 months, tl4 including since admission No falls in past 3 months (0 pts) Confusion or Disorientation No (0 pts) Intoxicated or Sedated No (0 pts) Impaired Gait No (0 pts) Mobility Assist Device Used No (0 pt) Altered Elimination No (0 pt) Score/Fall Risk Level 0 - 2 = Low Risk Oriented to surroundings, Maintained a safe environment, Educated pt \T\ family on fall prevention, incl call for assistance when getting out of bed, Assessed \T\ reinforced patient's understanding of fall precautions, Provided non-skid footwear, Hourly rounding (assess needs \T\ fall precautionary measures) done, Used ambulatory aids as needed (educated on \T\ assisted with), Used gait belt as appropriate. Abuse screen: Denies threats or abuse. Denies injuries from another. Nutritional screening: No deficits noted. Tuberculosis screening: No symptoms or risk factors identified. Assessment: 17:21 Reassessment: No changes from previously documented assessment. Patient and/or family tl4 updated on plan of care and expected duration. Pain level reassessed. Patient is alert, oriented x 3, equal unlabored respirations, skin warm/dry/pink. Patient states symptoms have improved. 18:25 Reassessment: No changes from previously documented assessment. Patient and/or family tl4 updated on plan of care and expected duration. Pain level reassessed. Patient is alert, oriented x 3, equal unlabored respirations, skin warm/dry/pink. Patient states symptoms have improved. 19:13 Reassessment: Pt assisted with getting dressed. Pt assisted to car via wheelchair. tl4 Vital Signs: 16:13 BP 115 / 55; Pulse 106; Resp 20; Temp 98.5(O); Pulse Ox 96% on 2 lpm NC; Height 5 ft. 4 tl4 in. ; 16:50 BP 112 / 95; Pulse 88; Resp 16; Pulse Ox 97% on R/A; Pain 0/10; tl4 17:30 BP 120 / 50; Pulse 89; Resp 24; Pulse Ox 98% on R/A; tl4 18:25 BP 105 / 60; Pulse 99; Resp 22; Pulse Ox 95% on R/A; tl4 18:26 Weight 49.9 kg; tl4 16:50 Pain Scale: Adult tl4 Vitals: 16:50 Cardiac Rhythm Assessment Irregular Atrial fibrillation. tl4 ED Course: 15:54 Patient arrived in ED. ec2 15:54 Zain Franks MD is Attending Physician. ec2 16:02 Mercedes Keita, ALDO is Primary Nurse. ph 16:17 Triage completed. tl4 17:00 XRAY Chest (1 view) In Process Unspecified. EDMS 17:08 Basic Metabolic Panel Sent. tl4 17:08 NT PRO-BNP Sent. tl4 17:08 Troponin HS Sent. tl4 17:22 Patient has correct armband on for positive identification. Placed in gown. Bed in low tl4 position. Call light in reach. Side rails up X2. Adult w/ patient. Provided Education on: ed process. Client placed on continuous cardiac and pulse oximetry monitoring. NIBP monitoring applied. groundwater monitoring technician on. Door closed. Noise minimized. Lights dimmed. Moved to private room. Warm blanket given. 17:23 Maintain EMS IV. Dressing intact. Good blood return noted. Site clean \T\ dry. Gauge \T\ tl 4 site: 22g right wrist. 17:23 Oxygen administration via nasal cannula \T\ 2L/min Response to oxygen therapy: symptoms tl4 improved. 17:23 No provider procedures requiring assistance completed. tl4 17:24 Arm band placed on Patient placed in an exam room, on a stretcher. tl4 19:13 IV discontinued, intact, bleeding controlled, No redness/swelling at site. Pressure tl4 dressing applied. Administered Medications: 17:07 Drug: Diltiazem IVP 25 mg IVP once; Over 2 Minutes Route: IVP; Infused Over: 2 mins; tl4 Site: right wrist; 18:24 Follow up: Response: Cardiac rhythm changed tl4 Medication: 17:22 VIS not applicable for this client. tl4 Outcome: 17:54 Discharge ordered by . ec2 19:14 Discharged to home via wheelchair, with family, tl4 19:14 Condition: stable 19:14 Discharge instructions given to patient, family, Instructed on discharge instructions, follow up and referral plans. Demonstrated understanding of instructions, follow-up care, 19:14 Patient left the ED. tl4 Signatures: Dispatcher [employer] Mercedes Durant RN RN Zain Franks MD MD ec2 Harry Maguire RN RN tl4
[2023-12-27 19:34] VITALS: BP 105/60; TEMP 98.5; O2SAT 95
== END ==
LOC: ER 15:52
DX: I48.0 Paroxysmal atrial fibrillation (principal); Z79.01 Long term (current) use of anticoagulants; E11.22 Type 2 diabetes mellitus with diabetic chronic kidney disease; N18.6 End stage renal disease; Z99.2 Dependence on renal dialysis; F17.210 Nicotine dependence, cigarettes, uncomplicated
CPT/HCPCS: 36415; 71045; 80048; 83880; 84484; 85025; 93005; 96374; 99285

== ENCOUNTER 2024-02-11 09:28 | Day surgery (SDC) | payer OTHER ==
--- NOTE | 2024-02-09 12:48 | EKG ---
Test Date: 2024-02-08 Test Time: 13:04:37 Revenue Inspector: SHAN MEASUREMENT RESULTS: Intervals: Rate: 45 MT: 154 QRSD: 82 QT: 524 QTc: 453 Ione: P: 47 MT: 154 QRS: -46 T: 62 INTERPRETIVE STATEMENTS: Marked sinus bradycardia Left anterior fascicular block Septal infarct, age undetermined Abnormal ECG Compared to ECG 01/14/2024 13:51:45 Left anterior fascicular block now present Atrial premature complex(es) no longer present Supraventricular tachycardia no longer present ST (T wave) deviation no longer present Myocardial infarct finding still present Electronically Signed On 02-09-24 12:45:48 CDT by Willie Nogueira
[2024-02-11 10:12] LABS: PT Prothrombin Time 13.2 SECONDS (9.5-12.5); PTT, Activated Partial Thromb 35.4 SECONDS (24.3-36.9); Protime INR 1.21
[2024-02-11] MEDS: NA CHLORIDE 0.9% 1,000 ML ONE (10:20)
[2024-02-11] MEDS ORDERED: BACITRACIN OINTMENT 14 GM TUBE TOP ONE (11:11)
[2024-02-11] MEDS ORDERED: propofoL 200 MG/20 ML VIAL IV ONE (11:47)
[2024-02-11] MEDS ORDERED: LIDOCAINE 2% MPF 5 ML VIAL ONE (11:47)
[2024-02-11] MEDS ORDERED: ONDANSETRON 4 MG/2 ML VIAL ONE (11:47)
[2024-02-11] MEDS ORDERED: FENTANYL CITR 100 MCG/2 ML ONE (11:47)
[2024-02-11] MEDS: LIDOCAINE HCL/EPINEPHRINE 20 ML MDV ONE (12:50)
[2024-02-11] MEDS: CEFAZOLIN SODIUM 1 GM/VIAL ONE (12:52)
[2024-02-11] MEDS ORDERED: HYDRALAZINE HCL 20 MG/ML VIAL ONE (14:01)
--- NOTE | 2024-02-11 14:20 | P.OP ---
Cold Roll Packer Sheet Iron: NONE,NONE Preoperative diagnosis: Neoplasm uncertain behavior forehead and nose, L chronic mastoiditis Postoperative diagnosis: Same with basaloid lesion nose, basal cell carcinoma forehead Primary procedure: Excision malignant lesion nose 2.3 cm and forehead 1.5 cm Secondary procedure: Allograft to nose, intermediate closure of forehead - 2.5cm Other procedure(s): Left complex mastoid debridement Anesthesia: General Estimated blood loss: 5 ml Specimen: Nose and forehead lesion, frozen section Findings: Negative margin of nose and forehead Operative Technique: Patient was brought to the operating and placed under general anesthesia via laryngeal mask airway. During induction of anesthesia she had significant bradycardia to the low 30s but improved to her baseline of 40 bpm. After consultation with the anesthesiologist overall, we felt the patient was stable enough to proceed. The forehead and nose were injected with a total of 3 mL of 1% lidocaine with epinephrine to aid in intraoperative and postoperative pain control as well as hemostasis. The patient was prepped with Betadine and draped in a sterile fashion. The left forehead demonstrated a 1 cm raised flesh-colored somewhat cystic-appearing lesion. A narrow margin was designed around the lesion due to its uncertain behavior and the needlepoint Bovie cautery was used to incise around the lesion with a 2 mm margin through the subcutaneous tissue. A suture was placed on the anterior-most aspect marking 12:00 and the specimen was sent to pathology for frozen section analysis. Attention was then turned to the nasal lesion. The lesion was noted to be approximately 1.8 cm in diameter with moderate ulceration. Due to its cancerous appearance, a 3 to 4 mm margin was designed around the lesion and the lesion was removed using needlepoint Bovie cautery. A suture was placed at the superiormost aspect and sent to pathology for frozen section analysis. The wounds were covered with a sterile towel and attention was turned to the left ear while awaiting frozen section analysis. The left ear was examined under an operating microscope with aid of an ear speculum. A large portion of the debris was gently loosened with a wire loop and removed using an alligator forcep. After removal, suction was used to remove residual squamous and ceruminous debris. Squamous debris and small necrotic bone fragments were also removed from the wound particularly along the anterior/floor near the annulus of the tympanic membrane. A small amount of old clot and additional squamous debris were suctioned throughout various portions of the mastoid cavity. There were no significant bleeding during this debridement. After completion, the microscope was removed from the field and sterile gloves were replaced. Attention was then turned back to the face. The forehead wound was 1.5 cm in diameter. There was bleeding near the 11:00 margin which was cauterized, clamped and additionally cauterized resulting in hemostasis. Due to the size of the wound, an intermediate closure was required and performed as follows. The Bovie electrocautery and double hooks were used to elevate the surrounding skin in order to allow for closure due to the size of the defect. 3-0 deep Vicryl sutures were used to approximate the circular wound and Burow triangles were removed from the medial and lateral aspect in order to allow for smoother closure. The skin was then closed in running fashion using plain gut resorbable sutures. There was moderate tension in the center portion of the wound with a 1 mm gap. This area was left slightly open with plan to heal by secondary intention to avoid additional wound disruption and additional bleeding. The nasal wound measured approximately 2.3 cm encompassing the majority of the nasal dorsum and right nasal sidewall. Due to the size of the wound and the patient's overall health status and age the decision was made to proceed with allograft in order to facilitate rapid closure and avoid additional wound. A TheraSkin graft was prepared in accordance with extension course counselor instructions. The graft was cut to the appropriate size and applied to the wound and secured with interrupted 3-0 silk sutures. A Xeroform bolster was then applied and secured to the wound. Intraoperative consultation with the pathologist confirmed the forehead wound was a basal cell carcinoma and the margins appeared negative. The nasal lesion was a basaloid lesion with suspicion for basal cell carcinoma. The margins were negative but somewhat close to the 9-12 border. Given the clinical findings including persistent bradycardia between 39 and 41 throughout the case, I elected not to perform additional excision despite the close margin status. The patient was subsequently returned to care of anesthesia for awakening extubation in the operating room and transportation to the recovery room. There were no additional significant events. The patient's family is instructed in wound care as well as use of [id number] Tylenol as needed for pain. The patient is instructed to resume her anticoagulants on postoperative day 1. Complications: None Implants: None Fluids & blood products: See anesthesia record Transferred to: Recovery Room Condition: Good
[2024-02-11] MEDS: TRAMADOL HCL 50 MG TAB ONE (14:50)
[2024-02-11 14:55] VITALS: O2SAT 98
[2024-02-11 15:27] VITALS: BP 120/40; TEMP 97
== END 2024-02-11 15:35 | disposition home or self-care (01) ==
LOC: OR 09:28
PROVIDERS: ATTEND Otolaryngology
PROC: 0JB10ZZ Excision of Face Subcutaneous Tissue and Fascia, Open Approach (ICD-10-PCS; 2024-02-11)
PROC: 0ND Head and Facial Bones, Extraction (ICD-10-PCS; 2024-02-11)
PROC: 0JB10ZZ Excision of Face Subcutaneous Tissue and Fascia, Open Approach (ICD-10-PCS; principal; 2024-02-11 10:45)
DX: C44.311 Basal cell carcinoma of skin of nose (principal); D23.39 Other benign neoplasm of skin of other parts of face; H60.42 Cholesteatoma of left external ear
CPT/HCPCS: 11642; 11643; 15275; 69222; 93005; 36415; 84132; 85610; 82947 ×2; 88331; 88332; 88305; 85730; J0360; J2704; J2001; J3010; J7030; J0690; J2405

== ENCOUNTER 2024-02-15 22:00 | Inpatient (IN) | payer OTHER ==
[2024-02-15 23:20] LABS: Absolute Lymphocytes (CBC) 0.3 K/uL (0.7-4.9); Absolute Monocytes 0.7 K/uL (0.1-1.3); Basophils % 0.5 % (0-1.3); Eosinophils % 0.5 % (0-4.4); Hematocrit 32.7 % (36.0-45.0); Hemoglobin 10.6 g/dL (12.0-15.0); Lymphocytes % 3.4 % (15.3-44.8); MCH 30.6 pg (27.0-35.0); MCHC 32.4 g/dL (32.0-36.0); MCV 94.5 fL (80-100); MPV 8.8 fL (7.6-11.3); Monocytes % 7.7 % (3.3-12.3); Neutrophils % 87.9 % (41.7-73.7); Nucleated Red Blood Cells % 0.1 % (0-0); Platelets 181 thou/uL (152-406); RBC Red Blood Cell Count 3.46 M/uL (3.86-4.86); Red Cell Distribution Width 18.7 % (12.1-15.2)
[2024-02-15 23:48] LABS: AST/SGOT 9 U/L (15-37); Albumin 3.1 g/dL (3.4-5.0); Albumin/Globulin Ratio 0.8 (1.1-1.8); Alkaline Phosphatase 171 U/L (45-117); Anion Gap 9.6 mEq/L (5.0-15.0); BUN Blood Urea Nitrogen 40 mg/dL (7-18); Bicarbonate 25 mEq/L (21-32); Bilirubin Direct 0.2 mg/dL (0-0.2); Bilirubin Indirect, Calculated 0.2 mg/dL (0.2-0.8); Bilirubin Total 0.4 mg/dL (0.2-1.0); Globulin 3.7 g/dL (2.3-3.5); Glomerular Filtration Rate 10 ml/min (=/>90); Glucose Level 271 mg/dL (74-106); Magnesium 1.8 mg/dL (1.6-2.4); NT PRO-BNP 86764 pg/mL (<450); Potassium 4.6 mEq/L (3.5-5.1); Protein, Total 6.8 g/dL (6.4-8.2); Sodium Level 134 mEq/L (136-145); Troponin High Sensitivity 47.5 pg/mL (<58.9)
[2024-02-15 23:49] LABS: ALT/SGPT < 10 U/L (13-56)
[2024-02-15 23:53] LABS: PT Prothrombin Time 19.4 SECONDS (9.5-12.5); Protime INR 1.79
--- NOTE | 2024-02-16 00:47 | EDPHYS ---
Physician Documentation [facility] Name: Luisa Sanchez Age: 83 yrs Sex: Female : 1940 Arrival Date: 02/15/2024 Time: 22:00 Bed [id number] Private MD: ED Physician Dimitri Briones HPI: 02/14 22:14 This 83 yrs old Female presents to ER via Unassigned with complaints of sp4 Shortness Of Breath, Cough, Dizziness, General Weakness, High Blood Pressure. 22:14 - Allergies: No Known Allergies; Home Meds: Velphoro 500 mg Oral tablet 1 tab after sp4 meals; pantoprazole 40 mg Oral tablet 1 tab daily; Plavix 75 mg Oral tablet 1 tab daily; metoprolol succinate 25 mg Oral Tablet 1 tab 2 times per day; lisinopril 20 mg Oral tablet 1 tab 2 times per day; balsalazide 750 mg Oral capsule 1 cap twice a day; atorvastatin 40 mg Oral tablet 1 tab every day at bedtime; atenolol 50 mg Oral tablet 1 tabs daily; apixaban 2.5 mg Oral tablet 1 tab 2 times per day; amiodarone 200 mg Oral tablet 1 tab daily PMHx: kidney disease; Hypertension; Hyperlipidemia; Diabetes - NIDDM; Dialysis (kidney disease) PSHx: foot; hip; Stented artery; . 02/15 00:37 83-year-old female with history of end-stage renal disease on hemodialysis. Last sp4 hemodialysis on Wednesday. Also hypertension, uterine prolapse, hyperlipidemia, atrial fibrillation, bilateral cataract, presents with acute worsening dyspnea associated with elevated blood pressure at home. . Historical: - Allergies: 02/14 22:39 No Known Allergies; pf1 - PMHx: 22:39 Diabetes - NIDDM; Dialysis (kidney disease); Hyperlipidemia; Hypertension; kidney pf1 disease; - PSHx: 22:39 foot; hip; Stented artery; pf1 22:39 diaylsis fistula to left upper arm; pf1 22:42 Skin grafting; pf1 - Immunization history:: Adult Immunizations not up to date, Client reports having NOT received the Covid vaccine. Last tetanus immunization: > 10 years ago Flu vaccine is not up to date. - Infectious Disease History:: Denies. - Social history:: Smoking status: Patient reports the use of cigarette tobacco products, smokes one pack cigarettes per day. Patient/guardian denies using alcohol, street drugs. - Family history:: not pertinent. ROS: 02/15 00:37 Constitutional: Negative for fever, chills, and weight loss, positive dyspnea and sp4 hypertension All other systems are negative, Exam: 00:37 Constitutional: This is a well developed, well nourished patient who is awake, alert, sp4 patient is frail elderly female, moderate dyspnea on examination, left hemodialysis fistula with palpable thrill, bilateral lower extremity edema with pitting, uncomfortable appearing female. Nontoxic-appearing, hypertensive on arrival. Head/Face: Normocephalic, atraumatic. Eyes: Pupils equal round and reactive to light, extra-ocular motions intact. Lids and lashes normal. Conjunctiva and sclera are not injected. Cornea within normal limits. Periorbital areas with no swelling, redness, or edema. ENT: Nares patent. No nasal discharge, no septal abnormalities noted. Tympanic membranes are normal and external auditory canals are clear. Oropharynx with no redness, swelling, or masses, exudates, or evidence of obstruction, uvula midline. Mucous membranes moist. Neck: Trachea midline, no thyromegaly or masses palpated, and no cervical lymphadenopathy. Supple, full range of motion without nuchal rigidity, or vertebral point tenderness. Positive JVD Chest/axilla: Normal chest wall appearance and motion. Nontender with no deformity. No lesions are appreciated. Cardiovascular: Regular rate and rhythm with a normal S1 and S2. No gallops, murmurs, or rubs. Normal PMI, No pulse deficits. Bilateral lower extremity edema with pitting Respiratory: Lungs have equal breath sounds bilaterally, positive bilateral crackles, positive dyspnea and tachypnea Abdomen/GI: Soft, with normal bowel sounds. No distension or tympany. No guarding or rebound. No evidence of tenderness throughout. Back: No spinal tenderness. No costovertebral tenderness. Skin: Warm, dry with normal turgor. Normal color with no rashes, no lesions, and no evidence of cellulitis. MS/ Extremity: Pulses equal, no cyanosis. Neurovascular intact. Full, normal range of motion. Positive bilateral lower extremity edema, positive moderate physical deconditioning Neuro: Awake and alert, GCS 15, oriented to person, place, time, and situation. Cranial nerves II-XII grossly intact. Motor strength 5/5 in all extremities. Sensory grossly intact. Positive hard of hearing Psych: Awake, alert, with orientation to person, place and time. Behavior, mood, and affect are within normal limits 00:41 ECG was reviewed by the Attending Physician. EKG reveals normal sinus rhythm at a rate sp4 of 65, no depression, no ectopy, EKG time 2233 Vital Signs: 02/14 22:26 BP 178 / 55; Pulse 64; Resp 20; Temp 98.3; Pulse Ox 94% ; Weight 57.15 kg; Height 5 ft. pf1 4 in. ; Pain 0/10; 02/15 00:00 BP 187 / 66; Pulse 63; Resp 22; Pulse Ox 95% on 3 lpm NC; jj7 01:00 BP 173 / 79; Pulse 76; Resp 22; Pulse Ox 97% 3 lpm ; jj7 02/14 22:26 Body Mass Index 21.63 (57.15 kg, 162.56 cm) pf1 02/14 22:26 Pain Scale: Adult pf1 [place] Coma Score: 00:37 Eye Response: spontaneous(4). Motor Response: obeys commands(6). Verbal Response: sp4 oriented(5). Total: 15. MDM: 02/14 22:22 Patient medically screened. sp4 02/15 00:33 ED course: EXAM: XR Chest, 1 View CLINICAL HISTORY: The patient is 83 years old and is sp4 Female; CHEST PAIN TECHNIQUE: Frontal view of the chest. COMPARISON: No relevant prior studies available. FINDINGS: LUNGS: Diffuse ground glass opacities are present throughout the lungs. Right lower lobe opacity is noted. PLEURAL SPACE: Blunting the right costophrenic angle is noted. No pneumothorax. HEART: Unremarkable. No cardiomegaly. MEDIASTINUM: Unremarkable. Normal mediastinal contour. BONES/JOINTS: Unremarkable. No acute fracture. VASCULATURE: Atherosclerosis of the aorta is present. UPPER ABDOMEN: Unremarkable as visualized. IMPRESSION: 1. Right pleural effusion with associated atelectasis. 2. Findings suggest diffuse infectious and/or edematous process. Electronically signed by: Glo Salmon MD 02/15/2024 11:07 PM . 00:43 Differential diagnosis: Anemia Anxiety Reaction asthma, Bronchitis CHF exacerbation, sp4 Chronic Obstructive Pulmonary Disease pneumonia, Psychogenic. Data reviewed: vital signs, nurses notes, old medical records, lab test result(s), EKG, radiologic studies, plain films. Consideration of Admission/Observation Patient was admitted/placed on observation. Escalation of care including admission/observation considered. Management of patient was discussed with the following: Hospitalist: Oksana CANTU . Soyfreeze Operator: Tima Stephen MD . ED course: Patient's x-ray reveals a diffuse pulmonary edema also right pleural effusion. Patient is clearly in volume overload and requires admission for inpatient dialysis.. Involved provide blood pressure control with hydralazine and also transdermal nitroglycerin. . 02/14 22:39 Order name: XRAY Chest (1 view) [facility] 02/14 22:39 Order name: Basic Metabolic Panel; Complete Time: 00:19 [facility] 02/14 22:39 Order name: CBC with Diff; Complete Time: 02:04 [facility] 02/14 22:39 Order name: LFT's; Complete Time: 00:19 [facility] 02/14 22:39 Order name: Magnesium; Complete Time: 00:19 [facility] 02/14 22:39 Order name: NT PRO-BNP; Complete Time: 00:19 4 02/14 22:39 Order name: PT-INR; Complete Time: 00:19 4 02/14 22:39 Order name: Troponin HS; Complete Time: 00:19 [facility] 02/14 23:30 Order name: Manual Differential; Complete Time: 02:04 [facility] 02/15 06:30 Order name: Troponin High Sensitivity [facility] 02/15 07:59 Order name: Glucose, Ancillary Testing [facility] 02/15 11:49 Order name: Glucose, Ancillary Testing [facility] 02/14 22:39 Order name: EKG; Complete Time: 22:39 4 02/15 00:56 Order name: CONS Physician Consult [facility] 02/14 22:39 Order name: Cardiac monitoring; Complete Time: 23:45 sp4 02/14 22:39 Order name: EKG - Nurse/Tech; Complete Time: 22:59 4 02/14 22:39 Order name: IV Saline Lock; Complete Time: 22:59 4 02/14 22:39 Order name: Labs collected and sent; Complete Time: 22:59 4 02/14 22:39 Order name: O2 Per Protocol; Complete Time: 23:45 4 02/14 22:39 Order name: O2 Sat Monitoring; Complete Time: 23:45 sp4 EC:41 Rate is 65 beats/min. Rhythm is regular, Normal Sinus Rhythm. QRS [place] is Normal. SC sp4 interval is normal. QRS interval is normal. QT interval is normal. No Q waves. T waves are Normal. No ST changes noted. Clinical impression: No evidence of ischemia. Interpreted by me. Reviewed by me. Administered Medications: 01:02 Drug: hydrALAZINE IVP 20 mg IVP once Route: IVP; Site: right wrist; jj7 01:02 Drug: Nitroglycerin Transdermal Ointment 2 % 0.5 inches Transdermal once Route: jj7 Transdermal; Site: anterior chest wall; 02:58 Drug: LORazepam PO 0.5 mg PO once Route: PO; jj7 Disposition Summary: 02/16/24 00:46 Hospitalization Ordered Notes: Hospitalization Status: Inpatient Admission sp4 Provider: Jass Gandhi sp4 Condition: Serious sp4 Problem: new sp4 Symptoms: have improved sp4 Bed/Room Type: Standard sp4 Location: Telemetry/MedSurg (Inpatient)(02/16/24 12:46) bd Room Assignment: 402(02/16/24 12:46) bd Diagnosis - Acute pulmonary edema sp4 - Volume overload, acute pulmonary edema, CHF exacerbation, end-stage renal disease sp4 on hemodialysis Forms: - Medication Reconciliation Form sp4 - SBAR form sp4 - Leadership Thank You Letter sp4 Signatures: Dispatcher [employer] EDMS Livia Park Juwairiyah, RN RN jj7 Jessica Hernandez RN RN pf1 Wendy Witt rv1 Dimitri Briones MD MD sp4 Corrections: (The following items were deleted from the chart) 02/14 22:39 22:39 BASIC METABOLIC PANEL+C.LAB.BRZ ordered. EDMS EDMS 22:39 22:39 CBC+H.LAB.BRZ ordered. EDMS EDMS 22:39 22:39 HEPATIC FUNCTION+C.LAB.BRZ ordered. EDMS EDMS 22:39 22:39 MAGNESIUM+C.LAB.BRZ ordered. EDMS EDMS 22:39 22:39 PROBNP+C.LAB.BRZ ordered. EDMS EDMS 22:40 22:39 PROTIME (+INR)+COAG.LAB.BRZ ordered. EDMS EDMS 22: 22:39 Troponin High Sensitivity+C.LAB.BRZ ordered. EDMS EDMS 22: 22:39 PSHx: dialysis M,W,F; pf1 pf1 02/15 00:56 00:46 Telemetry/MedSurg (Inpatient) sp4 rv1 00:56 00:46 sp4 rv1 12:46 00:56 [facility] ER HOLD rv1 bd 12:46 00:56 ERHOLD- rv1 bd
--- NOTE | 2024-02-16 00:47 | ER ---
Nurse's Notes [facility] Name: Luisa Sanchez Age: 83 yrs Sex: Female : 1940 Arrival Date: 02/15/2024 Time: 22:00 Bed [id number] Private MD: Diagnosis: Acute pulmonary edema;Volume overload, acute pulmonary edema, CHF exacerbation, end-stage renal disease on hemodialysis Presentation: 02/14 22:26 Chief complaint: Patient states: elevated BP 200/70, HR 73 with SOB,onset 1600 with pf1 cough,onset [address] Gandhi changed up patient's BP medication within the past week. Coronavirus screen: Vaccine status: Patient reports being unvaccinated. Client denies travel out of the [place] in the last 14 days. At this time, the client does not indicate any symptoms associated with coronavirus-19. Ebola Screen: Patient negative for fever greater than or equal to 101.5 degrees Fahrenheit, and additional compatible Ebola Virus Disease symptoms. Initial Sepsis Screen: Does the patient meet any 2 criteria? No. Patient's initial sepsis screen is negative. Does the patient have a suspected source of infection? No. Patient's initial sepsis screen is negative. Risk Assessment: Do you want to hurt yourself or someone else? Patient reports no desire to harm self or others. Onset of symptoms was February 15, 2024 at 16:00. 22:26 Method Of Arrival: Wheelchair pf1 22:26 Acuity: ELIEZER 3 pf1 Triage Assessment: 22:41 General: Appears in no apparent distress. comfortable, well groomed, well developed, pf1 Behavior is calm, cooperative, appropriate for age, quiet. Cardiovascular: Reports shortness of breath, with elevated BP. Respiratory: Reports shortness of breath cough that is. Historical: - Allergies: 22:39 No Known Allergies; pf1 - PMHx: 22:39 Diabetes - NIDDM; Dialysis (kidney disease); Hyperlipidemia; Hypertension; kidney pf1 disease; - PSHx: 22:39 foot; hip; Stented artery; pf1 22:39 diaylsis fistula to left upper arm; pf1 22:42 Skin grafting; pf1 - Immunization history:: Adult Immunizations not up to date, Client reports having NOT received the Covid vaccine. Last tetanus immunization: > 10 years ago Flu vaccine is not up to date. - Infectious Disease History:: Denies. - Social history:: Smoking status: Patient reports the use of cigarette tobacco products, smokes one pack cigarettes per day. Patient/guardian denies using alcohol, street drugs. - Family history:: not pertinent. Assessment: 23:53 General: Appears in no apparent distress. comfortable, Behavior is calm, cooperative, jj7 appropriate for age. Pain: Denies pain. Respiratory: Reports shortness of breath cough that is Airway is patent Respiratory effort is even, unlabored, Respiratory pattern is regular, symmetrical. Vital Signs: 22:26 BP 178 / 55; Pulse 64; Resp 20; Temp 98.3; Pulse Ox 94% ; Weight 57.15 kg; Height 5 ft. pf1 4 in. ; Pain 0/10; 02/15 00:00 BP 187 / 66; Pulse 63; Resp 22; Pulse Ox 95% on 3 lpm NC; jj7 01:00 BP 173 / 79; Pulse 76; Resp 22; Pulse Ox 97% 3 lpm ; jj7 02/14 22:26 Body Mass Index 21.63 (57.15 kg, 162.56 cm) pf1 04 22:26 Pain Scale: Adult pf1 [place] Coma Score: 00:37 Eye Response: spontaneous(4). Motor Response: obeys commands(6). Verbal Response: sp4 oriented(5). Total: 15. ED Course: 02/14 22:01 Patient arrived in ED. jj6 22:14 Dimitri Briones MD is Attending Physician. sp4 22:39 Triage completed. pf1 22:42 Initial lab(s) drawn, by oh, sent to lab. kmf 22:56 XRAY Chest (1 view) In Process Unspecified. EDMS 22:59 Basic Metabolic Panel Sent. kmf 22:59 CBC with Diff Sent. kmf 22:59 LFT's Sent. kmf 22:59 Magnesium Sent. kmf 22:59 NT PRO-BNP Sent. kmf 22:59 PT-INR Sent. kmf 22:59 Troponin HS Sent. kmf 23:00 EKG done, by ED staff, reviewed by Dimitri Briones MD. kmf 23:44 Sveta Concepcion RN is Primary Nurse. jj7 23:55 Patient has correct armband on for positive identification. Bed in low position. Call jj7 light in reach. Side rails up X 1. Adult w/ patient. Provided Education on: USE OF CALL [place]. Client placed on continuous cardiac and pulse oximetry monitoring. NIBP monitoring applied. personnel monitor on. Pulse ox on. Warm blanket given. 02/15 00:45 Jass Gandhi MD is Hospitalizing Provider. sp4 02:15 Warm blanket given. Elevated Turned. kmf 05:05 Notified ED physician of other pt requesting meds for restlessness. kmf 07:09 Primary Nurse role handed off by Sveta Concepcion RN bp 07:09 Virgil Bishop, ALDO is Primary Nurse. bp Administered Medications: 01:02 Drug: hydrALAZINE IVP 20 mg IVP once Route: IVP; Site: right wrist; jj7 01:02 Drug: Nitroglycerin Transdermal Ointment 2 % 0.5 inches Transdermal once Route: jj7 Transdermal; Site: anterior chest wall; 02:58 Drug: LORazepam PO 0.5 mg PO once Route: PO; jj7 Outcome: 00:46 Decision to Hospitalize by Provider. sp4 14:36 Patient left the ED. bp Signatures: Dispatcher [employer] EDMS Virgil Bishop, RN RN bp [place] jj6 Sveta Concepcion, ALDO CARLSON jj7 Jessica Hernandez RN RN Dimitri Hankins MD MD sp4 Melissa Craig [facility] Corrections: (The following items were deleted from the chart) 02/14 22:41 22:39 PSHx: dialysis M,W,F; pf1 pf1
[2024-02-16] MEDS ORDERED: HYDRALAZINE HCL 20 MG/ML VIAL ONE (00:53)
[2024-02-16] MEDS ORDERED: NITROGLYCERIN 1 GM PKT TD ONE (00:53)
[2024-02-16 01:26] LABS: Band Neutrophils 6 % (0-1); Differential Total Cells Count 100; Eosinophils 1 % (0-3); Lymphocytes 5 % (15-42); Monocytes 4 % (0-10); Segmented Neutrophils 84 % (40-80)
[2024-02-16 01:27] LABS: Blood Morphology Comment NOT SEEN (NOT SEEN); Platelet Estimate ADEQ
[2024-02-16] MEDS ORDERED: LORAZEPAM 0.5 MG TABLET ONE (02:49)
[2024-02-16] MEDS ORDERED: ONDANSETRON 4 MG/2 ML VIAL IV PRN (04:50)
[2024-02-16] MEDS ORDERED: ALPRAZOLAM 0.25 MG TABLET PO PRN (04:50)
[2024-02-16] MEDS ORDERED: MORPHINE 2 MG/ML SYR IV PRN (04:50)
[2024-02-16] MEDS ORDERED: HYDRALAZINE HCL 20 MG/ML VIAL IV PRN (04:50)
[2024-02-16] MEDS ORDERED: ACETAMINOPHEN 325 MG TABLET PO PRN (04:50)
[2024-02-16] MEDS ORDERED: ALBUTEROL 2.5 MG/3 ML NEB SOL NEB PRN (04:50)
[2024-02-16] MEDS ORDERED: atenoloL 50 MG TAB ONE (05:45)
[2024-02-16 05:53] VITALS: BMI 19.4
[2024-02-16] MEDS: atenoloL 25 MG TAB PO SCH (05:59)
[2024-02-16] MEDS: INSULIN REGULAR (HUMAN) 100 UNIT/ML SQ SCH (07:30)
[2024-02-16] MEDS ORDERED: atenoloL 25 MG TAB PO SCH (08:00)
[2024-02-16] MEDS ORDERED: NA CHLORIDE 0.9% 1,000 ML IV PRN (08:22)
[2024-02-16] MEDS ORDERED: MANNITOL 25% 12.5 GM/50 ML VIAL IV PRN (08:22)
[2024-02-16] MEDS: lisinopriL 20 MG TAB PO SCH (09:00)
[2024-02-16] MEDS: AMIODARONE HCL 200 MG TAB PO SCH ×2 (09:00→18:53)
[2024-02-16] MEDS ORDERED: AMIODARONE HCL 200 MG TAB ONE (09:14)
[2024-02-16] MEDS ORDERED: lisinopriL 20 MG TAB ONE (09:15)
--- NOTE | 2024-02-16 09:37 | P.CNS ---
Date of Consult: 02/16/24 Reason for Consult: ESRD Requesting Physician: Jass Gandhi V Chief Complaint: Dyspnea History of Present Illness: 22:14 This 83 yrs old Female presents to ER via Unassigned with complaints of sp4 Shortness Of Breath, Cough, Dizziness, General Weakness, High Blood Pressure. 22:14 - Allergies: No Known Allergies; Home Meds: Velphoro 500 mg Oral tablet 1 tab after sp4 meals; pantoprazole 40 mg Oral tablet 1 tab daily; Plavix 75 mg Oral tablet 1 tab daily; metoprolol succinate 25 mg Oral Tablet 1 tab 2 times per day; lisinopril 20 mg Oral tablet 1 tab 2 times per day; balsalazide 750 mg Oral capsule 1 cap twice a day; atorvastatin 40 mg Oral tablet 1 tab every day at bedtime; atenolol 50 mg Oral tablet 1 tabs daily; apixaban 2.5 mg Oral tablet 1 tab 2 times per day; amiodarone 200 mg Oral tablet 1 tab daily PMHx: kidney disease; Hypertension; Hyperlipidemia; Diabetes - NIDDM; Dialysis (kidney disease) PSHx: foot; hip; Stented artery; . 02/15 00:37 83-year-old female with history of end-stage renal disease on hemodialysis. Last sp4 hemodialysis on Wednesday. Also hypertension, uterine prolapse, hyperlipidemia, atrial fibrillation, bilateral cataract, presents with acute worsening dyspnea a ssociated with elevated blood pressure at home. VENESSA HAD ONE DAY DELAY OF THE HD SHE HAD TO GO FOR NOSE SURGERY. SHE HAD LOW HR SO THE CHARTER BOAT CAPTAIN REDUCED AMIODARONE TO HALD AND HELD METROPROLOL. SHE CAME TODAY MAINLY SHE WAS WORRIED AND HAD NO DYSPNEA BUT AFTER HD SHE CONVERTED BACK TO A FIB. SHE WILL NOW NEED TO STAY UNTIL CHARTER BOAT CAPTAIN SEES HER. SHE WILL DO OKAY ON BID AMIO WITH SMALL DOSE OF OR NO METOPROLOL. SHE IS A HEAVY SMOKER. Allergies No Known Allergies Allergy (Verified 02/08/24 12:46) Home medications list reviewed: Yes Home Medications: Atorvastatin Calcium 40 mg PO DAILY AT SUPPER 01/11/19 Apixaban [Eliquis *] 2.5 mg PO BID #60 tablet 02/01/19 Clopidogrel Bisulfate [Plavix*] 1 tab PO DAILY 10/02/23 Lisinopril [Zestril] 20 mg PO BEDTIME 10/02/23 Amiodarone HCl [Cordarone*] 200 mg PO BID tab 01/15/24 Amlodipine Besylate 5 mg PO BEDTIME 02/08/24 Cholecalciferol (Vitamin D3) [Vitamin D3] 125 mcg PO DAILY 02/08/24 Cyanocobalamin [Vitamin B-12] 1,000 mcg PO DAILY 02/08/24 Metoprolol Succinate 50 mg PO BID 02/08/24 Sitagliptin Phosphate [Januvia] 25 mg PO DAILY 02/08/24 Sucroferric Oxyhydroxide [Velphoro] 500 mg PO AC 02/08/24 Vit C/E/Zn/Coppr/Lutein/Zeaxan [Preservision Areds 2 Softgel] 1 each PO BID 02/08/24 - Past Medical/Surgical History Diabetic: Yes -: HTN -: prolapse uterus -: HLD -: AFIB -: ESRD (Dr. Alfred/ Dr. Wilkinson) -: Rt ear sx- child -: cataract surgery bliateral -: ORIF left hip 01/12/19 - Family History Father Medical History: Diabetes, Cancer, Kidney disease Mother Medical History: Cancer Notes: - Social History Smoking Status: Current every day smoker Alcohol use: No CD- Drugs: No Caffeine use: No Review of Systems 10-point ROS is otherwise unremarkable General: Weakness, Malaise Respiratory: Shortness of Breath Integumentary: Lesions Physical Examination Temp Pulse Resp BP Pulse Ox 55 22 H 141/53 H 98 02/16/24 05:59 02/16/24 04:00 02/16/24 05:59 02/16/24 04:00 General: In no apparent distress, Oriented x3, Cooperative HEENT: Atraumatic Neck: Supple Respiratory: Diminished Cardiovascular: Regular rate/rhythm (Bradycardia), Edema Gastrointestinal: Soft and benign, Non-distended Musculoskeletal: No clubbing Integumentary: Skin lesion Laboratory Data (last 24 hrs) 02/15/24 02/15/24 02/15/24 22:42 22:42 22:42 WBC 9.10 Hgb 10.6 L Hct 32.7 L Plt Count 181 PT 19.4 H INR 1.79 Sodium 134 L Potassium 4.6 BUN 40 H Creatinine 4.37 H Glucose 271 H Magnesium 1.8 Total Bilirubin 0.4 AST 9 L ALT < 10 L Alkaline Phosphatase 171 H Imagings Data: [id number] EXAM DESCRIPTION: XR Chest, 1 View CLINICAL HISTORY: The patient is 83 years old and is Female; CHEST PAIN TECHNIQUE: Frontal view of the chest. COMPARISON: No relevant prior studies available. FINDINGS: LUNGS: Diffuse ground glass opacities are present throughout the lungs. Right lower lobe opacity is noted. PLEURAL SPACE: Blunting the right costophrenic angle is noted. No pneumothorax. HEART: Unremarkable. No cardiomegaly. MEDIASTINUM: Unremarkable. Normal mediastinal contour. BONES/JOINTS: Unremarkable. No acute fracture. VASCULATURE: Atherosclerosis of the aorta is present. UPPER ABDOMEN: Unremarkable as visualized. IMPRESSION: 1. Right pleural effusion with associated atelectasis. 2. Findings suggest diffuse infectious and/or edematous process. Conclusions/Impression: ESRD on HD MWF -Acute HD ordered Hyponatremia -Acute HD HTN with CKD/ CHF -Continue Lisinopril and amlodipine Diastolic CHF, A/C -HD with UF DM II with CKD -RISS Anemia in CKD -Retacrit qHD CKD MBD -Start Ergo Case reviewed with Dr. Gandhi Thank you kindly for the consultation
[2024-02-16] MEDS ORDERED: PNEUMOCOCCAL VACCINE 0.5 ML IMVAC ONE (11:00)
[2024-02-16] MEDS ORDERED: INFLUENZA VACCINE (for 6+ mo) 0.5 ML DOSE IMVAC ONE (11:00)
[2024-02-16] MEDS: ALBUMIN HUMAN 25% 50 ML IV SCH (13:00)
--- NOTE | 2024-02-16 14:03 | RAD REPORT ---
EXAM DESCRIPTION: XR Chest, 1 View CLINICAL HISTORY: The patient is 83 years old and is Female; CHEST PAIN TECHNIQUE: Frontal view of the chest. COMPARISON: No relevant prior studies available. FINDINGS: LUNGS: Diffuse ground glass opacities are present throughout the lungs. Right lower lobe opacity is noted. PLEURAL SPACE: Blunting the right costophrenic angle is noted. No pneumothorax. HEART: Unremarkable. No cardiomegaly. MEDIASTINUM: Unremarkable. Normal mediastinal contour. BONES/JOINTS: Unremarkable. No acute fracture. VASCULATURE: Atherosclerosis of the aorta is present. UPPER ABDOMEN: Unremarkable as visualized. IMPRESSION: 1. Right pleural effusion with associated atelectasis. 2. Findings suggest diffuse infectious and/or edematous process. Electronically signed by: Glo Salmon MD 02/15/2024 11:07 PM CDT Due to temporary technical issues with the PACS/Fluency reporting system, reports are being signed by the in house radiologist without review as a courtesy to ensure prompt reporting. The interpreting r adiologist is fully responsible for the content of the report.
[2024-02-16] MEDS: EPOETIN ALFA 10,000 UNIT/ML VIAL IV SCH (15:45)
[2024-02-16 17:06] LABS: Hepatitis B surface AG Interp. Nonreactive (Nonreactive)
[2024-02-16 17:07] LABS: Hepatitis B Surface Ab - Quant < 3.10 mIU/mL (<8.0)
[2024-02-16 17:09] LABS: HBsAG Nonreactive Report Report
--- NOTE | 2024-02-16 18:14 | P.HP ---
Patient History Date of Service: 02/16/24 Reason for admission: Dyspnea History of Present Illness: VENESSA HAD ONE DAY DELAY OF THE HD SHE HAD TO GO FOR NOSE SURGERY. SHE HAD LOW HR SO THE SUPERVISOR [employer] REDUCED AMIODARONE TO HALD AND HELD METROPROLOL. SHE CAME TODAY MAINLY SHE WAS WORRIED AND HAD NO DYSPNEA BUT AFTER HD SHE CONVERTED BACK TO A FIB. SHE WILL NOW NEED TO STAY UNTIL SUPERVISOR [employer] SEES HER. SHE WILL DO OKAY ON BID AMIO WITH SMALL DOSE OF OR NO METOPROLOL. SHE IS A HEAVY SMOKER. Allergies No Known Allergies Allergy (Verified 02/08/24 12:46) Home medications list reviewed: Yes Home Medications: Atorvastatin Calcium 40 mg PO DAILY AT SUPPER 01/11/19 Apixaban [Eliquis *] 2.5 mg PO BID #60 tablet 02/01/19 Clopidogrel Bisulfate [Plavix*] 1 tab PO DAILY 10/02/23 Lisinopril [Zestril] 20 mg PO BEDTIME 10/02/23 Amiodarone HCl [Cordarone*] 200 mg PO BID tab 01/15/24 Amlodipine Besylate 5 mg PO BEDTIME 02/08/24 Cholecalciferol (Vitamin D3) [Vitamin D3] 125 mcg PO DAILY 02/08/24 Cyanocobalamin [Vitamin B-12] 1,000 mcg PO DAILY 02/08/24 Metoprolol Succinate 50 mg PO BID 02/08/24 Sitagliptin Phosphate [Januvia] 25 mg PO DAILY 02/08/24 Sucroferric Oxyhydroxide [Velphoro] 500 mg PO AC 02/08/24 Vit C/E/Zn/Coppr/Lutein/Zeaxan [Preservision Areds 2 Softgel] 1 each PO BID 02/08/24 - Past Medical/Surgical History Has patient received pneumonia vaccine in the past: Yes Diabetic: Yes -: HTN -: prolapse uterus -: HLD -: AFIB -: ESRD (Dr. Alfred/ Dr. Wilkinson) -: Rt ear sx- child -: cataract surgery bliateral -: ORIF left hip 01/12/19 - Family History Father -: Diabetes, Cancer, Kidney disease Mother -: Cancer Notes: - Social History Smoking Status: Current some day smoker Alcohol use: No CD- Drugs: No Caffeine use: No Place of Residence: Home Review of Systems 10-point ROS is otherwise unremarkable General: Weakness Physical Examination - Vital Signs Temperature: 98.3 F Blood Pressure: 126/80 Pulse: 53 Respirations: 15 Pulse Ox (%): 96 - Physical Exam General: Mild distress HEENT: Atraumatic, PERRLA, Mucous membr. moist/pink, EOMI, Sclerae nonicteric Neck: Supple, 2+ carotid pulse no bruit, No LAD, Without JVD or thyroid abnormality Respiratory: Clear to auscultation bilaterally, Normal air movement Cardiovascular: Regular rate/rhythm, Normal S1 S2 Gastrointestinal: Normal bowel sounds, No tenderness Musculoskeletal: No tenderness Integumentary: No rashes Neurological: Normal gait, Normal speech, Normal strength at 5/5 x4 extr, Normal tone, Normal affect Lymphatics: No axilla or inguinal lymphadenopathy - Studies Laboratory Data (last 24 hrs) 02/15/24 02/15/24 02/15/24 22:42 22:42 22:42 WBC 9.10 Hgb 10.6 L Hct 32.7 L Plt Count 181 PT 19.4 H INR 1.79 Sodium 134 L Potassium 4.6 BUN 40 H Creatinine 4.37 H Glucose 271 H Magnesium 1.8 Total Bilirubin 0.4 AST 9 L ALT < 10 L Alkaline Phosphatase 171 H Assessment and Plan - Problems (Diagnosis) (1) Tachy-megha syndrome Current Visit: Yes Status: Acute (2) Rapid atrial fibrillation Current Visit: No Status: Acute Plan: SHE HAD CHANGES MADE BY HER SUPERVISOR [employer]. SHE WILL GO BACK TO HIGHER DOSE OF AMIO AND WATCH WITHOUT METOPROLOL TO AVOID BRADYCARDIA. STABLE BUT WILL HAVE TO STAY ONE MORE DAY. 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 - Advance Directives Does patient have a Living Will: No Does patient have a Durable POA for Healthcare: No
[2024-02-16] MEDS: AMIODARONE HCL 200 MG TAB PO ONE (18:55)
[2024-02-16] MEDS: AMLODIPINE 5 MG TAB PO SCH (20:34)
[2024-02-16] MEDS: APIXABAN 2.5 MG TABLET PO SCH (20:35)
[2024-02-17] MEDS: AMLODIPINE 5 MG TAB PO SCH (00:02)
[2024-02-17] MEDS ORDERED: atenoloL 25 MG TAB PO SCH (06:00)
[2024-02-17 08:22] VITALS: BP 174/66; TEMP 98
[2024-02-17 08:58] VITALS: O2SAT 88
[2024-02-17] MEDS ORDERED: HOME MED 1 EA UNK (Sitagliptin Phosphate [Januvia] 50 MG Tablet) PO SCH (09:00)
[2024-02-17] MEDS: lisinopriL 20 MG TAB PO SCH (09:36)
[2024-02-17] MEDS: CLOPIDOGREL 75 MG TABLET PO SCH (09:37)
[2024-02-17] MEDS: ALOGLIPTIN BENZOATE 12.5 MG TABLET PO SCH (09:37)
[2024-02-17] MEDS ORDERED: METOPROLOL XL 25 MG TAB PO SCH (10:30)
--- NOTE | 2024-02-17 11:14 | P.CNS ---
Date of Consult: 02/17/24 Chief Complaint: Dyspnea History of Present Illness: Patient with PMH of heart failure preserved EF, ESRD on HD, atrial fibrillation, presented with SOB after missing dialysis session and while she was in dialysis she went into AF w RVR, denies any cardiac symptoms. patient has been treated for AF before with Dr. Schultz [facility] cardiology and recently was taken of BB due to low HR. Allergies No Known Allergies Allergy (Verified 02/08/24 12:46) Home Medications: Atorvastatin Calcium 40 mg PO DAILY AT SUPPER 01/11/19 Apixaban [Eliquis *] 2.5 mg PO BID #60 tablet 02/01/19 Clopidogrel Bisulfate [Plavix*] 1 tab PO DAILY 10/02/23 Lisinopril [Zestril] 20 mg PO BEDTIME 10/02/23 Amiodarone HCl [Cordarone*] 200 mg PO BID tab 01/15/24 Amlodipine Besylate 5 mg PO BEDTIME 02/08/24 Cholecalciferol (Vitamin D3) [Vitamin D3] 125 mcg PO DAILY 02/08/24 Cyanocobalamin [Vitamin B-12*] 1,000 mcg PO DAILY 02/08/24 Sitagliptin Phosphate [Januvia] 25 mg PO DAILY 02/08/24 Sucroferric Oxyhydroxide [Velphoro] 500 mg PO AC 02/08/24 Vit C/E/Zn/Coppr/Lutein/Zeaxan [Preservision Areds 2 Softgel] 1 each PO BID 02/08/24 lisinopriL [Prinivil*] 20 mg PO BID tab 02/17/24 - Past Medical/Surgical History Diabetic: Yes -: HTN -: prolapse uterus -: HLD -: AFIB -: ESRD (Dr. Alfred/ Dr. Wilkinson) -: Rt ear sx- child -: cataract surgery bliateral -: ORIF left hip 01/12/19 - Family History Father Medical History: Diabetes, Cancer, Kidney disease Mother Medical History: Cancer Notes: - Social History Smoking Status: Current every day smoker Alcohol use: No CD- Drugs: No Caffeine use: No Place of Residence: Home Review of Systems 10-point ROS is otherwise unremarkable Physical Examination Temp Pulse Resp BP Pulse Ox 98.0 F 64 20 174/66 H 92 02/17/24 08:00 02/17/24 09:36 02/17/24 08:00 02/17/24 09:36 02/17/24 08:00 General: Alert, Oriented x3 HEENT: Atraumatic Neck: Supple Respiratory: Clear to auscultation bilaterally Cardiovascular: Normal S1 S2, Edema Gastrointestinal: Normal bowel sounds - Problems (1) Tachy-megha syndrome Current Visit: Yes Status: Acute Plan: Patient will need 14 days event monitor which can be done through her chief operating engineer office to evaluate need for Pacemaker placement. (2) Chronic atrial fibrillation Current Visit: No Status: Acute Plan: Continue Amiodarone 200 mg po BID Continue Eliquis 2.5 mg po BID patient used to be on high dose Toprol XL of 50 mg po BID (would suggest starting her on low dose Toprol XL 25 mg daily and monitor her HR. (3) HTN (hypertension) Current Visit: No Status: Chronic Plan: Continue current medications.
--- NOTE | 2024-02-17 15:42 | EKG ---
Test Date: 2024-02-15 Test Time: 22:33:13 Exhibit Technician: EDI MEASUREMENT RESULTS: Intervals: Rate: 65 FL: 152 QRSD: 84 QT: 442 QTc: 459 [place]: P: 85 FL: 152 QRS: -11 T: 85 INTERPRETIVE STATEMENTS: Normal sinus rhythm Septal infarct, age undetermined Abnormal ECG Compared to ECG 02/08/2024 13:04:37 Sinus bradycardia no longer present Left anterior fascicular block no longer present Myocardial infarct finding still present Electronically Signed On 02-17-24 15:39:37 CDT by Willie Nogueira
[2024-02-17] MEDS ORDERED: ATORVASTATIN 40 MG TAB PO SCH (17:00)
--- NOTE | 2024-02-17 20:57 | P.PN ---
Date of Service: 02/17/24 Vital Signs Temp Pulse Resp BP Pulse Ox 98.0 F 64 20 174/66 H 92 02/17/24 08:00 02/17/24 09:36 02/17/24 08:00 02/17/24 09:36 02/17/24 08:00 Assessment/ Plan: Nephrology No dyspnea No chest pain Fatigue No acute events overnight Vitals, medications, blood work and imaging reviewed in the chart General: In no apparent distress, Oriented x3, Cooperative HEENT: Atraumatic Neck: Supple Respiratory: Diminished Cardiovascular: Regular rate/rhythm (Bradycardia), Edema 2+ Gastrointestinal: Soft and benign, Non-distended Musculoskeletal: No clubbing Integumentary: Skin lesion Laboratory Data (last 24 hrs) 02/15/24 02/15/24 02/15/24 22:42 22:42 22:42 WBC 9.10 Hgb 10.6 L Hct 32.7 L Plt Count 181 PT 19.4 H INR 1.79 Sodium 134 L Potassium 4.6 BUN 40 H Creatinine 4.37 H Glucose 271 H Magnesium 1.8 Total Bilirubin 0.4 AST 9 L ALT < 10 L Alkaline Phosphatase 171 H Imagings Data: [id number] EXAM DESCRIPTION: XR Chest, 1 View CLINICAL HISTORY: The patient is 83 years old and is Female; CHEST PAIN TECHNIQUE: Frontal view of the chest. COMPARISON: No relevant prior studies available. FINDINGS: LUNGS: Diffuse ground glass opacities are present throughout the lungs. Right lower lobe opacity is noted. PLEURAL SPACE: Blunting the right costophrenic angle is noted. No pneumothorax. HEART: Unremarkable. No cardiomegaly. MEDIASTINUM: Unremarkable. Normal mediastinal contour. BONES/JOINTS: Unremarkable. No acute fracture. VASCULATURE: Atherosclerosis of the aorta is present. UPPER ABDOMEN: Unremarkable as visualized. IMPRESSION: 1. Right pleural effusion with associated atelectasis. 2. Findings suggest diffuse infectious and/or edematous process. Conclusions/Impression: ESRD on HD MWF -HD TIW Hyponatremia -HD TIW HTN with CKD/ CHF -Continue Lisinopril and Amlodipine Diastolic CHF, A/C -HD with UF DM II with CKD -RISS Anemia in CKD -Retacrit qHD CKD MBD -Continue Ergo
--- NOTE | 2024-02-17 22:21 | P.DS ---
Admission Date: 02/16/24 Discharge Date: 02/17/24 Disposition: ROUTINE DISCHARGE Discharge Condition: FAIR Reason for Admission: Dyspnea - Problems (1) Tachy-megha syndrome Status: Acute (2) Rapid atrial fibrillation Status: Acute (3) Hemodialysis-associated hypotension Status: Chronic Brief History of Present Illness: VENESSA HAD ONE DAY DELAY OF THE HD SHE HAD TO GO FOR NOSE SURGERY. SHE HAD LOW HR SO THE TRACTOR OPERATOR HELPER REDUCED AMIODARONE TO HALD AND HELD METROPROLOL. SHE CAME TODAY MAINLY SHE WAS WORRIED AND HAD NO DYSPNEA BUT AFTER HD SHE CONVERTED BACK TO A FIB. SHE WILL NOW NEED TO STAY UNTIL TRACTOR OPERATOR HELPER SEES HER. SHE WILL DO OKAY ON BID AMIO WITH SMALL DOSE OF OR NO METOPROLOL. SHE IS A HEAVY SMOKER. Hospital Course: VENESSA IS A HEAVY SMOKER, COPD PATIENT WHO IS ON HD FOR CKD5, SHE ALSO HAS A FIB. SHE COME IN WITH NOT MUCH SYMPTOMS EXCEPT FOR WORRY ABOUT LOW HR. SHE WAS TAKEN OFF B AMADA AND HAD REDUCE AMIODARONE BY HER CARD. SHE WASOKAY IN AM , LAER DEVELOPED RAPID A FIB. I ASKED THEM TO MAKE AMIO BID SHE BECAME SEVERELY BRADYCARDIC ON METOPROLOL AND AMIO. SHE DID WELL, HR IN ABOUT 70S. SHE IS STABLE TO GO HOME. I SENT HER HOME AND CALLED IN OXYGEN FROM OFFICE TO [facility]. SHE IS 88% AT REST THAT IS BORDERLINE ANYWAY. Vital Signs/Physical Exam: Temp Pulse Resp BP Pulse Ox 98.0 F 64 20 174/66 H 92 02/17/24 08:00 02/17/24 09:36 02/17/24 08:00 02/17/24 09:36 02/17/24 08:00 Laboratory Data at Discharge: WBC 9.10 thou/uL (4.3-10.9) 02/15/24 22:42 Hgb 10.6 g/dL (12.0-15.0) L 02/15/24 22:42 Hct 32.7 % (36.0-45.0) L 02/15/24 22:42 Plt Count 181 thou/uL (152-406) 02/15/24 22:42 PT 19.4 SECONDS (9.5-12.5) H 02/15/24 22:42 INR 1.79 02/15/24 22:42 Sodium 134 mEq/L (136-145) L 02/15/24 22:42 Potassium 4.6 mEq/L (3.5-5.1) 02/15/24 22:42 BUN 40 mg/dL (7-18) H 02/15/24 22:42 Creatinine 4.37 mg/dL (0.55-1.02) H 02/15/24 22:42 Glucose 271 mg/dL (74-106) H 02/15/24 22:42 Magnesium 1.8 mg/dL (1.6-2.4) 02/15/24 22:42 Total Bilirubin 0.4 mg/dL (0.2-1.0) 02/15/24 22:42 AST 9 U/L (15-37) L 02/15/24 22:42 ALT < 10 U/L (13-56) L 02/15/24 22:42 Alkaline Phosphatase 171 U/L (45-117) H 02/15/24 22:42 Home Medications: Atorvastatin Calcium 40 mg PO DAILY AT SUPPER 01/11/19 Apixaban [Eliquis *] 2.5 mg PO BID #60 tablet 02/01/19 Clopidogrel Bisulfate [Plavix*] 1 tab PO DAILY 10/02/23 Lisinopril [Zestril] 20 mg PO BEDTIME 10/02/23 Amiodarone HCl [Cordarone*] 200 mg PO BID tab 01/15/24 Amlodipine Besylate 5 mg PO BEDTIME 02/08/24 Cholecalciferol (Vitamin D3) [Vitamin D3] 125 mcg PO DAILY 02/08/24 Cyanocobalamin [Vitamin B-12*] 1,000 mcg PO DAILY 02/08/24 Sitagliptin Phosphate [Januvia] 25 mg PO DAILY 02/08/24 Sucroferric Oxyhydroxide [Velphoro] 500 mg PO AC 02/08/24 Vit C/E/Zn/Coppr/Lutein/Zeaxan [Preservision Areds 2 Softgel] 1 each PO BID 02/08/24 lisinopriL [Prinivil*] 20 mg PO BID tab 02/17/24 Followup: Jass Gandhi MD [Primary Care Provider] - 1-2 Weeks Willie Nogueira MD [ACTIVE - CAN ADMIT] - 1-2 Weeks
[2024-02-18] MEDS ORDERED: lisinopriL 20 MG TAB PO SCH (09:00)
[2024-02-18] MEDS ORDERED: METOPROLOL XL 25 MG TAB PO SCH (10:00)
== END 2024-02-17 11:15 | disposition home or self-care (01) | DRG 291 ==
LOC: ER 22:00 → ERHOLD 02-16 00:51 → 4TH 02-16 12:51
PROVIDERS: ADMIT Internal Medicine; ATTEND Internal Medicine
PROC: 5A1D70Z Performance of Urinary Filtration, Intermittent, Less than 6 Hours Per Day (ICD-10-PCS; principal; 2024-02-16)
DX: I13.2 Hypertensive heart and chronic kidney disease with heart failure and with stage 5 chronic kidney disease, or end stage renal disease (principal); I50.31 Acute diastolic (congestive) heart failure; E87.1 Hypo-osmolality and hyponatremia; N18.5 Chronic kidney disease, stage 5; E11.22 Type 2 diabetes mellitus with diabetic chronic kidney disease; D63.1 Anemia in chronic kidney disease; E78.5 Hyperlipidemia, unspecified; I49.5 Sick sinus syndrome; I95.3 Hypotension of hemodialysis; I48.91 Unspecified atrial fibrillation; J44.9 Chronic obstructive pulmonary disease, unspecified; F17.210 Nicotine dependence, cigarettes, uncomplicated; Z99.2 Dependence on renal dialysis; Z79.01 Long term (current) use of anticoagulants; Z79.02 Long term (current) use of antithrombotics/antiplatelets; Z28.310 Unvaccinated for COVID-19; Z79.899 Other long term (current) drug therapy; Z96.642 Presence of left artificial hip joint; Z91.158 Patient's noncompliance with renal dialysis for other reason
CPT/HCPCS: 36415; 71045; 80048; 80076; 82947; 83735; 83880; 84484; 85025; 85610; 86706; 87340; 90935; 93005; 96374; 99285; J0360; J1644; J1815; P9047; Q4081

== ENCOUNTER 2024-03-05 20:03 | Emergency (ER) | payer OTHER ==
--- NOTE | 2024-03-05 21:14 | RAD REPORT ---
EXAM DESCRIPTION: RAD - Femur Left - 03/05/2024 9:08 pm CLINICAL HISTORY: PAIN COMPARISON: No comparisons FINDINGS/IMPRESSION: Status post left hip ORIF with cephalomedullary screw and intramedullary cora. N o hardware complications. No acute fractures. Mild left acetabular degenerative changes. Osteopenia. Tricompartmental degenerative changes are present at the knee. Peripheral vascular calcifications .
--- NOTE | 2024-03-05 21:15 | RAD REPORT ---
EXAM DESCRIPTION: RAD - Tib Fib Left - 03/05/2024 9:08 pm CLINICAL HISTORY: PAIN COMPARISON: No comparisons FINDINGS/IMPRESSION: No acute fracture. No malalignment. Tricompartmental degenerative changes are p resent at the knee. Peripheral vascular calcifications
--- NOTE | 2024-03-05 21:16 | RAD REPORT ---
EXAM DESCRIPTION: RAD - Foot Left 3 View - 03/05/2024 9:08 pm CLINICAL HISTORY: fall and pain COMPARISON: No comparisons FINDINGS/IMPRESSION: No acute fracture. No malalignment. Calcaneal spurring.
--- NOTE | 2024-03-06 00:10 | EDPHYS ---
Physician Documentation [facility] Name: Luisa Sanchez Age: 83 yrs Sex: Female : 1940 Arrival Date: 03/05/2024 Time: 20:03 Bed 19 Private MD: ED Physician Dimitri Briones HPI: 03/05 20:22 This 83 yrs old Female presents to ER via Wheelchair with complaints of Fall sp4 Injury, Leg Injury. 20:22 Left lower extremity pain. sp4 03/06 06:21 Patient states she fell at home sustaining left lower extremity pain associated with sp4 left knee pain. Patient reported buckling of the left knee as she walked at home. Pain is mostly in the left lower extremity just below the left knee on the lateral side. Historical: - Allergies: 03/05 20:14 No Known Allergies; km8 - PMHx: 20:14 Diabetes - NIDDM; Dialysis (kidney disease); Hyperlipidemia; Hypertension; kidney km8 disease; - PSHx: 20:14 diaylsis fistula to left upper arm; foot; hip; Skin grafting; Stented artery; km8 - Immunization history:: Adult Immunizations up to date. - Infectious Disease History:: Denies. - Social history:: Smoking status: Patient reports the use of cigarette tobacco products, smokes two packs cigarettes per day. - Family history:: not pertinent. ROS: 03/06 06:21 Constitutional: Negative for fever, chills, and weight loss, positive left lower sp4 extremity pain, positive left knee pain All other systems are negative, Exam: 06:21 Constitutional: This is a well developed, well nourished patient who is awake, alert, sp4 and in no acute distress. Patient has stigmata of chronic end-stage renal disease. Positive left upper arm fistula with palpable thrill Head/Face: Normocephalic, atraumatic. Eyes: Pupils equal round and reactive to light, extra-ocular motions intact. Lids and lashes normal. Conjunctiva and sclera are not injected. Cornea within normal limits. Periorbital areas with no swelling, redness, or edema. ENT: Nares patent. No nasal discharge, no septal abnormalities noted. Tympanic membranes are normal and external auditory canals are clear. Oropharynx with no redness, swelling, or masses, exudates, or evidence of obstruction, uvula midline. Mucous membranes moist. Neck: Trachea midline, no thyromegaly or masses palpated, and no cervical lymphadenopathy. Supple, full range of motion without nuchal rigidity, or vertebral point tenderness. Chest/axilla: Normal chest wall appearance and motion. Nontender with no deformity. No lesions are appreciated. Cardiovascular: Regular rate and rhythm with a normal S1 and S2. No gallops, murmurs, or rubs. Normal PMI, no JVD. No pulse deficits. Respiratory: Lungs have equal breath sounds bilaterally, clear to auscultation and percussion. No rales, rhonchi or wheezes noted. No increased work of breathing, no retractions or nasal flaring. Abdomen/GI: Soft, with normal bowel sounds. No distension or tympany. No guarding or rebound. No evidence of tenderness throughout. Back: No spinal tenderness. No costovertebral tenderness. Skin: Warm, dry with normal turgor. Normal color with no rashes, no lesions, and no evidence of cellulitis. MS/ Extremity: Pulses equal, no cyanosis. Neurovascular intact. Full, normal range of motion. Neuro: Awake and alert, GCS 15, oriented to person, place, time, and situation. Cranial nerves II-XII grossly intact. Motor strength 5/5 in all extremities. Sensory grossly intact. Psych: Awake, alert, with orientation to person, place and time. Behavior, mood, and affect are within normal limits Vital Signs: 03/05 20:12 BP 152 / 58; Pulse 65; Resp 16; Temp 98.6(O); Pulse Ox 97% on R/A; Weight 54.43 kg; km8 Height 5 ft. 4 in. ; Pain 0/10; 20:30 BP 173 / 60; Pulse 61; Resp 18; Pulse Ox 96% on R/A; Pain 6/10; tl4 21:30 BP 156 / 53; Pulse 59; Resp 16; Pulse Ox 95% on R/A; tl4 22:30 BP 161 / 53; Pulse 61; Resp 18; Pulse Ox 98% on R/A; Pain 6/10; tl4 03/06 00:05 BP 160 / 57; Pulse 64; Resp 15; Pulse Ox 96% on R/A; tl4 00:28 BP 154 / 58; Pulse 59; Resp 18; Pulse Ox 94% on R/A; [facility] 03/05 20:12 Body Mass Index 20.60 (54.43 kg, 162.56 cm) [facility] 03/05 20:12 Pain Scale: Adult [facility] 20:30 Pain Scale: Adult tl4 22:30 Pain Scale: Adult tl4 [place] Coma Score: 06:21 Eye Response: spontaneous(4). Motor Response: obeys commands(6). Verbal Response: sp4 oriented(5). Total: 15. MDM: 03/05 20:09 Patient medically screened. sp4 23:59 ED course: EXAM DESCRIPTION: RAD - Foot Left 3 View - 03/05/2024 9:08 pm CLINICAL sp4 HISTORY: fall and pain COMPARISON: No comparisons FINDINGS/IMPRESSION: No acute fracture. No malalignment. Calcaneal spurring.. ED course: EXAM DESCRIPTION: RAD - Tib Fib Left - 03/05/2024 9:08 pm CLINICAL HISTORY: PAIN COMPARISON: No comparisons FINDINGS/IMPRESSION: No acute fracture. No malalignment. Tricompartmental degenerative changes are present at the knee. Peripheral vascular calcifications . ED course: EXAM DESCRIPTION: RAD - Femur Left - 03/05/2024 9:08 pm CLINICAL HISTORY: PAIN COMPARISON: No comparisons FINDINGS/IMPRESSION: Status post left hip ORIF with cephalomedullary screw and intramedullary cora. No hardware complications. No acute fractures. Mild left acetabular degenerative changes. Osteopenia. Tricompartmental degenerative changes are present at the knee. Peripheral vascular calcifications .. 03/06 06:21 Differential diagnosis: abrasion, contusion, fracture, sprain, strain. Data reviewed: sp4 vital signs, nurses notes, old medical records, radiologic studies, plain films. Consideration of Admission/Observation Escalation of care including admission/observation considered. 03/05 20:22 Order name: Femur Left XRAY; Complete Time: 23:57 sp4 03/05 20:22 Order name: Tib Fib Left XRAY; Complete Time: 23:57 sp4 03/05 20:22 Order name: Foot Left 3 View XRAY; Complete Time: 23:57 sp4 Administered Medications: No medications were administered Disposition Summary: 03/06/24 00:09 Discharge Ordered Notes: Location: Home sp4 Problem: new sp4 Symptoms: have improved sp4 Condition: Stable sp4 Diagnosis - Pain in left knee sp4 - Lower extremity soft tissue contusion, left knee sprain, sp4 Followup: sp4 - With: Bob Woodson MD - When: 7 - 10 days - Reason: Recheck today's complaints Discharge Instructions: - Discharge Summary Sheet sp4 - How to Use a Knee Brace sp4 Forms: - Patient Portal Instructions sp4 Signatures: Dispatcher [employer] EDDimitri Hodges MD MD sp4 Vanessa Contreras RN RN km8 Corrections: (The following items were deleted from the chart) 03/05 20:22 20:22 Femur Left+RAD.RAD.BRZ ordered. EDMS EDMS 20:23 20:23 Foot Left 3 View+RAD.RAD.BRZ ordered. EDMS EDMS
--- NOTE | 2024-03-06 00:10 | ER ---
Nurse's Notes [facility] Name: Luisa Sanchez Age: 83 yrs Sex: Female : 1940 Arrival Date: 03/05/2024 Time: 20:03 Bed 19 Private MD: Diagnosis: Pain in left knee;Lower extremity soft tissue contusion, left knee sprain, Presentation: 03/05 20:12 Chief complaint: Patient states: tripped over a step and fell hurting left leg. km8 Coronavirus screen: Client denies travel out of the [place] in the last 14 days. Ebola Screen: No symptoms or risks identified at this time. Initial Sepsis Screen: Does the patient meet any 2 criteria? No. Patient's initial sepsis screen is negative. Does the patient have a suspected source of infection? No. Patient's initial sepsis screen is negative. Risk Assessment: Do you want to hurt yourself or someone else? Patient reports no desire to harm self or others. Onset of symptoms was March 05, 2024 at 19:00. 20:12 Method Of Arrival: Wheelchair km8 20:12 Acuity: ELIEZER 3 km8 Triage Assessment: 20:14 General: Appears in no apparent distress. comfortable, Behavior is calm, cooperative, km8 appropriate for age. Pain: Complains of pain in left leg Pain currently is 0 out of 10 on a pain scale. at worst was 5 out of 10 on a pain scale. EENT: No signs and/or symptoms were reported regarding the EENT system. Neuro: Level of Consciousness is awake, alert, obeys commands, Oriented to person, place, time, situation. Cardiovascular: Denies chest pain, shortness of breath, Patient's skin is warm and dry. Respiratory: Airway is patent Respiratory effort is even, unlabored, Respiratory pattern is regular, symmetrical. GI: No signs and/or symptoms were reported involving the gastrointestinal system. : No signs and/or symptoms were reported regarding the genitourinary system. Derm: Skin is intact, Skin is dry, Skin is dusky, Skin temperature is warm. Musculoskeletal: Range of motion: limited in left knee and left ankle Swelling present in left leg Reports pain in left leg. Historical: - Allergies: 20:14 No Known Allergies; km8 - PMHx: 20:14 Diabetes - NIDDM; Dialysis (kidney disease); Hyperlipidemia; Hypertension; kidney km8 disease; - PSHx: 20:14 diaylsis fistula to left upper arm; foot; hip; Skin grafting; Stented artery; km8 - Immunization history:: Adult Immunizations up to date. - Infectious Disease History:: Denies. - Social history:: Smoking status: Patient reports the use of cigarette tobacco products, smokes two packs cigarettes per day. - Family history:: not pertinent. Screenin:46 [facility] ED Fall Risk Assessment (Adult) History of falling in the last 3 months, tl4 including since admission Yes- fall prone (multiple falls) (3 pts) Confusion or Disorientation No (0 pts) Intoxicated or Sedated No (0 pts) Impaired Gait No (0 pts) Mobility Assist Device Used No (0 pt) Altered Elimination No (0 pt) Score/Fall Risk Level 3 or more points = High Risk Oriented to surroundings, Maintained a safe environment, Educated pt \T\ family on fall prevention, incl call for assistance when getting out of bed, Assessed \T\ reinforced patient's understanding of fall precautions, Provided non-skid footwear, Hourly rounding (assess needs \T\ fall precautionary measures) done, Used ambulatory aids as needed (educated on \T\ assisted with), Used gait belt as appropriate. Abuse screen: Denies threats or abuse. Denies injuries from another. Nutritional screening: No deficits noted. Tuberculosis screening: No symptoms or risk factors identified. Assessment: 20:32 General: Appears in no apparent distress. Behavior is calm, cooperative. Pain: tl4 Complains of pain in left leg. Neuro: Level of Consciousness is awake, alert, obeys commands, Oriented to person, place, time, situation, Moves all extremities. Full function Speech is normal. Cardiovascular: Capillary refill < 3 seconds Patient's skin is warm and dry. Respiratory: Airway is patent Respiratory effort is even, unlabored, Respiratory pattern is regular, symmetrical, Breath sounds are clear bilaterally. GI: No signs and/or symptoms were reported involving the gastrointestinal system. : No signs and/or symptoms were reported regarding the genitourinary system. EENT: No signs and/or symptoms were reported regarding the EENT system. Derm: No signs and/or symptoms reported regarding the dermatologic system. Musculoskeletal: Reports pain in right leg. 21:03 Reassessment: Pt states she has pain, but does not want any medications for pain. Pt tl4 repositioned and given warm blanket. 21:28 Reassessment: Patient and/or family updated on plan of care and expected duration. Pain tl4 level reassessed. Patient is alert, oriented x 3, equal unlabored respirations, skin warm/dry/pink. Pt states she has pain, but it is tolerable and she does not want anything for pain. Pt denies any needs at this time. Will continue to monitor. 03/06 00:04 Reassessment: Patient and/or family updated on plan of care and expected duration. Pain tl4 level reassessed. Patient is alert, oriented x 3, equal unlabored respirations, skin warm/dry/pink. Vital Signs: 03/05 20:12 BP 152 / 58; Pulse 65; Resp 16; Temp 98.6(O); Pulse Ox 97% on R/A; Weight 54.43 kg; 8 Height 5 ft. 4 in. ; Pain 0/10; 20:30 BP 173 / 60; Pulse 61; Resp 18; Pulse Ox 96% on R/A; Pain 6/10; tl4 21:30 BP 156 / 53; Pulse 59; Resp 16; Pulse Ox 95% on R/A; tl4 22:30 BP 161 / 53; Pulse 61; Resp 18; Pulse Ox 98% on R/A; Pain 6/10; tl4 03/06 00:05 BP 160 / 57; Pulse 64; Resp 15; Pulse Ox 96% on R/A; tl4 00:28 BP 154 / 58; Pulse 59; Resp 18; Pulse Ox 94% on R/A; 8 03/05 20:12 Body Mass Index 20.60 (54.43 kg, 162.56 cm) [facility] 03/05 20:12 Pain Scale: Adult 8 20:30 Pain Scale: Adult tl4 22:30 Pain Scale: Adult tl4 Kimberlee Coma Score: 06:21 Eye Response: spontaneous(4). Motor Response: obeys commands(6). Verbal Response: sp4 oriented(5). Total: 15. ED Course: 03/05 20:05 Patient arrived in ED. jj6 20:09 Dimitri Briones MD is Attending Physician. sp4 20:13 Triage completed. km8 20:14 Arm band placed on right wrist. km8 20:23 Harry Maguire, RN is Primary Nurse. tl4 21:10 Femur Left XRAY In Process Unspecified. EDMS 21:10 Tib Fib Left XRAY In Process Unspecified. EDMS 21:10 Foot Left 3 View XRAY In Process Unspecified. EDMS 22:44 Patient has correct armband on for positive identification. Bed in low position. Call tl4 light in reach. Side rails up X 1. Adult w/ patient. Provided Education on: ED process. Client placed on continuous cardiac and pulse oximetry monitoring. NIBP monitoring applied. Door closed. Noise minimized. Moved to private room. Warm blanket given. 22:45 No provider procedures requiring assistance completed. Patient did not have IV access tl4 during this emergency room visit. 03/06 00:09 Bob Woodson MD is Referral Physician. sp4 Administered Medications: No medications were administered Medication: 03/05 22:38 VIS not applicable for this client. tl4 Outcome: 03/06 00:09 Discharge ordered by . spDelfin 00:28 Discharged to home via wheelchair, with family, km8 00:28 Condition: good 00:28 Discharge instructions given to patient, family, Instructed on discharge instructions, follow up and referral plans. Demonstrated understanding of instructions, follow-up care, 00:31 Patient left the ED. km8 Signatures: Dispatcher [employer] Soco Rodriguez jj6 Dimitri Briones MD MD spVanessa Regan RN RN km8 Harry Maguire, RN RN tl4
[2024-03-06 00:56] VITALS: BP 160/57; TEMP 98.6; O2SAT 96
== END 2024-03-06 00:31 | disposition home or self-care (01) ==
LOC: ER 20:03
DX: S83.92XA Sprain of unspecified site of left knee, initial encounter (principal); S80.02XA Contusion of left knee, initial encounter; W18.30XA Fall on same level, unspecified, initial encounter; F17.210 Nicotine dependence, cigarettes, uncomplicated
CPT/HCPCS: 99283

== ENCOUNTER 2024-04-30 15:31 | Observation (INO) | payer OTHER ==
[2024-04-30 16:16] LABS: Absolute Basophils 0.1 K/uL (0-0.5); Absolute Eosinophils 0.1 K/uL (0-0.5); Absolute Lymphocytes (CBC) 0.4 K/uL (0.7-4.9); Absolute Monocytes 0.5 K/uL (0.1-1.3); Absolute Neutrophil 5.3 K/uL (1.8-8.0); Basophils % 0.9 % (0-1.3); Hematocrit 29.5 % (36.0-45.0); Hemoglobin 9.4 g/dL (12.0-15.0); Lymphocytes % 6.7 % (15.3-44.8); MCH 29.1 pg (27.0-35.0); MCHC 31.8 g/dL (32.0-36.0); MCV 91.6 fL (80-100); MPV 8.4 fL (7.6-11.3); Monocytes % 8.3 % (3.3-12.3); Neutrophils % 83.1 % (41.7-73.7); Nucleated Red Blood Cells % 0.1 % (0-0); Platelets 162 thou/uL (152-406); RBC Red Blood Cell Count 3.22 M/uL (3.86-4.86); Red Cell Distribution Width 19.1 % (12.1-15.2)
--- NOTE | 2024-04-30 16:16 | RAD REPORT ---
EXAM DESCRIPTION: RAD - Chest Single View - 04/30/2024 4:01 pm CLINICAL HISTORY: fall Chest pain. COMPARISON: Chest Single View dated 04/05/2024; Chest Single View dated 02/15/2024; Chest Single View d ated 01/14/2024; Chest Single View dated 12/27/2023 FINDINGS: Portable technique limits examination quality. Moderate bilateral pulmonary opacities are present with moderate right pleural effusion likely repres enting pulmonary edema. The heart is moderately enlarged in size. No displaced fractures. IMPRESSION: Moderate CHF versus volume overload pattern.
[2024-04-30] MEDS ORDERED: LIDOCAINE HCL JELLY 2% 6 ML SYRINGE TOP ONE (16:18)
[2024-04-30 16:33] LABS: Anion Gap 12.8 mEq/L (5.0-15.0); Magnesium 2.1 mg/dL (1.6-2.4); Potassium 4.8 mEq/L (3.5-5.1)
--- NOTE | 2024-04-30 16:41 | RAD REPORT ---
EXAM DESCRIPTION: CT - CTHCSPWOC - 04/30/2024 4:22 pm CLINICAL HISTORY: Trauma, head and neck injury. fall COMPARISON: No comparisons TECHNIQUE: Axial 5 mm thick images of the head were obtained. Axial 2 mm thick images of the cervical spine were obtained with sagittal and coronal reconstruction images generated and reviewed. All CT scans are performed using dose optimization technique as appropriate and may include automated exposure control or mA/KV adjustment according to patient size. FINDINGS: CT HEAD WITHOUT CONTRAST: No acute hemorrhage, hydrocephalus or extra-axial collection is identified.Mild generalized brain atr ophy is present with mild periventricular and deep white matter chronic microvascular ischemic change s.No areas of brain edema or midline shift. Fluid is present in the nasal airway on the right the right maxillary sinus. The calvarium is intact. CT CERVICAL SPINE WITHOUT CONTRAST: No fracture or subluxation.Mild lower cervical degenerative changes.No prevertebral soft tissues swel ling is identified. Small left pleural effusion. IMPRESSION: No acute intracranial or cervical spine findings.
--- NOTE | 2024-04-30 16:43 | RAD REPORT ---
EXAM DESCRIPTION: CT - CTFB CLINICAL HISTORY: TRAUMA Facial trauma and pain. COMPARISON: No comparisons TECHNIQUE: Axial 2 mm thick images of the face were obtained with sagittal and coronal reconstructio n images. All CT scans are performed using dose optimization technique as appropriate and may include automated exposure control or mA/KV adjustment according to patient size. FINDINGS: Mildly angulated right nasal bone fracture is seen. There is soft tissue thickening presen t around the nasal bones as well as fluid in the right nasal airway trace amount of fluid in the righ t maxillary sinus.The mandible is intact. The globes and orbital contents are grossly unremarkable. IMPRESSION: Mild nasal bone fracture is noted.
--- NOTE | 2024-04-30 19:09 | ER ---
Nurse's Notes [facility] Name: Luisa Sanchez Age: 83 yrs Sex: Female : 1940 Arrival Date: 04/30/2024 Time: 15:31 Bed 14 Private MD: Diagnosis: Fracture of nasal bones;Epistaxis Presentation: 04/30 15:32 Chief complaint: EMS states: STRUCK NOSE IN SHOWER WITH NASAL BRIDGE ABRASION AND bp NOSEBLEED, DENIES LOC, DENIES FALL. Coronavirus screen: At this time, the client does not indicate any symptoms associated with coronavirus-19. Ebola Screen: No symptoms or risks identified at this time. Initial Sepsis Screen: Does the patient meet any 2 criteria? No. Patient's initial sepsis screen is negative. Does the patient have a suspected source of infection? No. Patient's initial sepsis screen is negative. Risk Assessment: Do you want to hurt yourself or someone else? Patient reports no desire to harm self or others. Onset of symptoms was April 30, 2024 at 15:00. 15:32 Method Of Arrival: EMS: [facility] bp 15:32 Acuity: ELIEZER 3 bp Triage Assessment: 15:33 General: Appears in no apparent distress. Behavior is calm, cooperative, appropriate bp for age. Pain: Complains of pain in face. EENT: Nares with bleeding noted. Injury Description: Abrasion sustained to nose. Historical: - Allergies: 15:33 No Known Allergies; bp - PMHx: 15:33 Diabetes - NIDDM; Dialysis (kidney disease); Hyperlipidemia; Hypertension; kidney bp disease; - PSHx: 15:33 diaylsis fistula to left upper arm; foot; hip; Skin grafting; Stented artery; bp - Immunization history:: Adult Immunizations up to date. - Infectious Disease History:: Denies. - Social history:: Smoking status: Patient denies any tobacco usage or history of. Screenin:34 [facility] ED Fall Risk Assessment (Adult) History of falling in the last 3 months, bp including since admission No falls in past 3 months (0 pts). Abuse screen: Denies threats or abuse. Denies injuries from another. Nutritional screening: No deficits noted. Tuberculosis screening: No symptoms or risk factors identified. Assessment: 15:34 General: Appears in no apparent distress. Behavior is calm, cooperative, appropriate bp for age. Pain: Complains of pain in nose. 17:04 Reassessment: RHINO ROCKETS PLACED BILATERALLY BY PROVIDER. PT TOLERATED WELL. bp 19:30 Reassessment: Patient and/or family updated on plan of care and expected duration. Pain lc8 level reassessed. 20:30 Reassessment: No changes from previously documented assessment. lc8 Vital Signs: 15:32 BP 131 / 48; Pulse 60; Resp 16; Temp 98; Pulse Ox 96% ; bp 17:00 BP 121 / 69; Pulse 56; Resp 15; Pulse Ox 99% ; aw1 18:58 BP 134 / 44; Pulse 55; Resp 16; Pulse Ox 99% ; aw1 19:30 BP 144 / 45; Pulse 56; Resp 17; Pulse Ox 96% on R/A; lc8 20:30 BP 142 / 48; Pulse 54; Resp 17; Pulse Ox 99% on R/A; lc8 21:30 BP 153 / 51; Pulse 54; Resp 17; Pulse Ox 98% on R/A; lc8 ED Course: 15:32 Patient arrived in ED. bp 15:33 Triage completed. bp 15:33 Arm band placed on. bp 15:34 Patient has correct armband on for positive identification. bp 15:35 Virgil Bishop, RN is Primary Nurse. bp 15:44 Isra Glass PA is PHCP. cp 15:44 Zain Franks MD is Attending Physician. cp 16:03 XRAY Chest (1 view) In Process Unspecified. EDMS 16:08 Inserted saline lock: 22 gauge in right forearm, using aseptic technique. Blood bp collected. 16:23 CT Head C Spine In Process Unspecified. EDMS 16:23 CT Facial Bones W/O Con In Process Unspecified. EDMS 16:25 Initial lab(s) drawn, by me, sent to lab. EKG done, by repair technician. reviewed by Isra TRAN. 18:21 Warm blanket given. aw1 18:49 PHCP role handed off by Isra Glass PA kb 18:49 India Ayala FNP-C is PHCP. kb 19:08 Rachid Richardson MD is Hospitalizing Provider. kb 21:30 Patient admitted, IV remains in place. lc8 21:48 Provided Education on: admission. lc8 22:11 No provider procedures requiring assistance completed. 8 Administered Medications: 16:20 Drug: Viscous Lidocaine Mucous Membrane Liquid (4 %) 10 ml Mucous Membrane once Route: bp Mucous Membrane; Medication: 15:34 VIS not applicable for this client. bp Outcome: 19:08 Decision to Hospitalize by Provider. kb 21:30 Condition: stable lc8 21:30 Instructed on the need for admit, 22:11 Admitted to Med/surg accompanied by tech, family with patient, via wheelchair, room 8 207, 22:17 Patient left the ED. [facility] Signatures: Dispatcher [employer] EDMS India Ayala, AIRDROP SYSTEMS TECHNICIAN-C AIRDROP SYSTEMS TECHNICIAN-Ckb Isra Glass PA PA cp Peltier, Brian, RN RN Liudmila Guzman aw1 Valerie De Santiago, ALDO RN 8
--- NOTE | 2024-04-30 19:09 | EDPHYS ---
Physician Documentation [facility] Name: Luisa Sanchez Age: 83 yrs Sex: Female : 1940 Arrival Date: 04/30/2024 Time: 15:31 Bed 14 Private MD: ED Physician Zain Franks HPI: 04/30 15:55 This 83 yrs old Female presents to ER via EMS with complaints of Nose Bleed. cp 15:55 The patient presents with a nose bleed, that is continuous bright red, causative cp factors include: takes Eliquis and Plavix nasal trauma, from fall, appears swelling, pain. Onset: The symptoms/episode began/occurred just prior to arrival. Associated signs and symptoms: Loss of consciousness: the patient experienced no loss of consciousness. Historical: - Allergies: 15:33 No Known Allergies; bp - PMHx: 15:33 Diabetes - NIDDM; Dialysis (kidney disease); Hyperlipidemia; Hypertension; kidney bp disease; - PSHx: 15:33 diaylsis fistula to left upper arm; foot; hip; Skin grafting; Stented artery; bp - Immunization history:: Adult Immunizations up to date. - Infectious Disease History:: Denies. - Social history:: Smoking status: Patient denies any tobacco usage or history of. ROS: 16:00 ENT: Positive for nose bleed, cp 16:00 Constitutional: Negative for body aches, chills, fever, cp 16:00 Cardiovascular: Negative for chest pain, 16:00 Neuro: Negative for altered mental status, headache, loss of consciousness, syncope, weakness, 16:00 All other systems are negative, 19:08 Constitutional: As per HPI kb Exam: 16:05 Constitutional: The patient appears in no acute distress, alert, awake, cp non-diaphoretic, well developed, well nourished, uncomfortable, 16:05 Head/face: Noted is swelling, that is mild, of the nose, superficial wound noted to cp bridge of nose with mild erythema. Sinus tenderness, is not appreciated, 16:05 Eyes: Periorbital structures: appear normal, Pupils: equal, round, and reactive to light and accomodation, Extraocular movements: intact throughout, Conjunctiva: normal, no exudate, no injection, Lids and lashes: appear normal, bilaterally, 16:05 ENT: External ear(s): are unremarkable, Ear canal(s): are normal, clear, Nose: bleeding, is noted from both nares, and is moderate, Mouth: Lips: moist, Oral mucosa: pink and intact, moist, Posterior pharynx: Airway: no evidence of obstruction, patent, 16:05 Neck: C-spine: vertebral tenderness, is not appreciated, crepitus, is not appreciated, 16:05 Chest/axilla: Inspection: normal, 16:05 Cardiovascular: Rate: normal, Rhythm: regular, 16:05 Respiratory: the patient does not display signs of respiratory distress, Respirations: normal, no use of accessory muscles, no retractions, labored breathing, is not present, Breath sounds: are clear throughout, no decreased breath sounds, no stridor, no wheezing, 16:05 Abdomen/GI: Inspection: abdomen appears normal, 16:40 ECG was reviewed by the Attending Physician. cp 19:08 Constitutional: This is a well developed, well nourished patient who is awake, alert, kb and in no acute distress. Vital Signs: 15:32 BP 131 / 48; Pulse 60; Resp 16; Temp 98; Pulse Ox 96% ; bp 17:00 BP 121 / 69; Pulse 56; Resp 15; Pulse Ox 99% ; aw1 18:58 BP 134 / 44; Pulse 55; Resp 16; Pulse Ox 99% ; aw1 19:30 BP 144 / 45; Pulse 56; Resp 17; Pulse Ox 96% on R/A; lc8 20:30 BP 142 / 48; Pulse 54; Resp 17; Pulse Ox 99% on R/A; lc8 21:30 BP 153 / 51; Pulse 54; Resp 17; Pulse Ox 98% on R/A; lc8 MDM: 15:48 Patient medically screened. cp 17:40 Data reviewed: vital signs, nurses notes, lab test result(s), EKG, radiologic studies, cp CT scan. ED course: msg left on voicemail of DR Macdonald for consult as she has seen patient in the past. 18:22 ED course: msg left on voicemail of DR Macdnoald. cp 19:06 Differential diagnosis: foreign body - resolved, foreign body - unresolved, nasal kb fracture, trauma, epistaxis r/t trauma. Consideration of Admission/Observation Patient was admitted/placed on observation. Escalation of care including admission/observation considered. Management of patient was discussed with the following: Hospitalist: Dr iRchardson accepts pt for admission. Wind Turbine Engineer: Isra Glass spoke with Dr Cruz who accepts the pt for consult. . 19:07 Counseling: I had a detailed discussion with the patient and/or guardian regarding the kb historical points, exam findings, and any diagnostic results supporting the discharge/admit diagnosis, lab results, radiology results, the need for further work-up and treatment in the hospital. 04/30 15:47 Order name: Basic Metabolic Panel; Complete Time: 16:54 04/30 16:54 Interpretation: Normal except: NA 135; GLUC 292; BUN 53; CRE 4.64; GFR 9. 04/30 15:47 Order name: CBC with Diff; Complete Time: 16:54 04/30 16:54 Interpretation: Normal except: RBC 3.22; HGB 9.4; HCT 29.5; MCHC 31.8; RDW 19.1; MI% cp 83.1; LYM% 6.7; LYMA 0.4. 04/30 15:47 Order name: Magnesium; Complete Time: 16:54 04/30 15:47 Order name: PT-INR; Complete Time: 21:07 04/30 15:48 Order name: Ptt, Activated; Complete Time: 16:54 04/30 21:12 Order name: Urinalysis w/ reflexes EDTX 04/30 21:13 Order name: CBC with Automated Diff [facility] 04/30 21:13 Order name: CBC with Automated Diff EDTX 04/30 21:13 Order name: Comprehensive Metabolic Panel EDTX 04/30 21:13 Order name: Comprehensive Metabolic Panel EDTX 04/30 21:14 Order name: Hemoglobin EDMS 04/30 21:14 Order name: Hemoglobin EDMS 04/30 21:14 Order name: Hemoglobin EDMS 04/30 21:14 Order name: Hemoglobin EDTX 04/30 15:47 Order name: XRAY Chest (1 view); Complete Time: 16:54 04/30 16:55 Interpretation: Report review. 04/30 15:47 Order name: CT Head C Spine; Complete Time: 16:54 04/30 16:56 Interpretation: Reviewed report. 04/30 15:47 Order name: CT Facial Bones W/O Con; Complete Time: 16:54 04/30 16:56 Interpretation: Report reviewed. 04/30 21:12 Order name: CONS Physician Consult EDTX 04/30 21:12 Order name: CONS Physician Consult [facility] 04/30 15:47 Order name: Cardiac monitoring; Complete Time: 16:07 04/30 15:47 Order name: EKG - Nurse/Tech; Complete Time: 16:25 04/30 15:47 Order name: IV Saline Lock; Complete Time: 16:08 04/30 15:47 Order name: Labs collected and sent; Complete Time: 16:08 04/30 15:47 Order name: O2 Per Protocol; Complete Time: 16:08 04/30 15:47 Order name: O2 Sat Monitoring; Complete Time: 16:08 EC:40 Rate is 55 beats/min. Rhythm is regular. QRS interval is prolonged at 102 msec. QT cp interval is normal. T waves are Inverted in lead aVR. Interpreted by me. Reviewed by me. Administered Medications: 16:20 Drug: Viscous Lidocaine Mucous Membrane Liquid (4 %) 10 ml Mucous Membrane once Route: bp Mucous Membrane; Disposition Summary: 04/30/24 19:08 Hospitalization Ordered Notes: Hospitalization Status: Observation kb Provider: Rachid Richardson Location: Telemetry/MedSurg (observation) kb Condition: Stable kb Problem: new kb Symptoms: are unchanged kb Bed/Room Type: Standard Room Assignment: 207(04/30/24 21:32) sp Diagnosis - Fracture of nasal bones kb - Epistaxis kb Forms: - Medication Reconciliation Form kb - SBAR form kb - Leadership Thank You Letter kb Addendum: 05/02/2024 14:14 I agree with the assessment and plan of care. e c2 Signatures: Dispatcher [employer] EDMS [place] Ayala, SPINNER OPERATOR-C SPINNER OPERATOR-CkRachel Fernando Corey, PA PA cp Peltier, Brian, ALDO RN Zain Mays MD MD ec2 Corrections: (The following items were deleted from the chart) 04/30 15:47 15:47 BASIC METABOLIC PANEL+C.LAB.BRZ ordered. EDMS EDMS 15:47 15:47 CBC+H.LAB.BRZ ordered. EDMS EDMS 15:47 15:47 MAGNESIUM+C.LAB.BRZ ordered. EDMS EDMS 15:47 15:47 PROTIME (+INR)+COAG.LAB.BRZ ordered. EDMS EDMS 15:48 15:48 Chest Single View+RAD.RAD.BRZ ordered. EDMS EDMS 15:48 15:48 Head C Spine MPR Wo Con+CT.RAD.BRZ ordered. EDMS EDMS 15:48 15:48 Facial Bones W/ MPR+CT.RAD.BRZ ordered. EDMS EDMS 21:32 19:08 kb sp
[2024-04-30 21:02] LABS: PT Prothrombin Time 17.8 SECONDS (9.5-12.5); Protime INR 1.64
[2024-04-30] MEDS ORDERED: ONDANSETRON 4 MG/2 ML VIAL IV PRN (21:07)
--- NOTE | 2024-04-30 21:07 | P.HP ---
Certification for Inpatient Patient admitted to: Inpatient With expected LOS: >2 Midnights Practitioner: I am a practitioner with admitting privileges, knowledge of patient current condition, hospital course, and medical plan of care. Services: Services provided to patient in accordance with Admission requirements found in Title 42 Section 412.3 of the Code of Federal Regulations Patient History Date of Service: 04/30/24 Reason for admission: Fall , Epistaxis History of Present Illness: 83 yrs old Female with past medical history of diabetes, hypertension, ESRD on dialysis followed by Dr. Alfred presented to ED with nosebleed which started after a fall . Patient is a poor historian hence most of the history is obtained from the chart review and also talking to the ER physician and family members at the bedside. Patient is also hard of hearing. Patient apparently had a fall today and had trauma in the nasal bone and started having bleeding from bilateral nasal cavities especially on the right. Denies any fever or chills. Denies any chest pain or shortness of breath. Patient denies any loss of consciousness or syncopal episodes. Patient was assessed in the ER and was found to have epistaxis and had nasal packing was done and was admitted for further management. Patient is on Eliquis as well as on Plavix. Allergies No Known Allergies Allergy (Verified 02/08/24 12:46) Home Medications: Atorvastatin Calcium 40 mg PO DAILY AT SUPPER 01/11/19 Apixaban [Eliquis *] 2.5 mg PO BID #60 tablet 02/01/19 Clopidogrel Bisulfate [Plavix*] 1 tab PO DAILY 10/02/23 Lisinopril [Zestril] 20 mg PO BEDTIME 10/02/23 Amiodarone HCl [Cordarone*] 200 mg PO BID tab 01/15/24 Amlodipine Besylate 5 mg PO BEDTIME 02/08/24 Cholecalciferol (Vitamin D3) [Vitamin D3] 125 mcg PO DAILY 02/08/24 Cyanocobalamin [Vitamin B-12*] 1,000 mcg PO DAILY 02/08/24 Sitagliptin Phosphate [Januvia] 25 mg PO DAILY 02/08/24 Sucroferric Oxyhydroxide [Velphoro] 500 mg PO AC 02/08/24 Vit C/E/Zn/Coppr/Lutein/Zeaxan [Preservision Areds 2 Softgel] 1 each PO BID 02/08/24 lisinopriL [Prinivil*] 20 mg PO BID tab 02/17/24 - Past Medical/Surgical History Diabetic: Yes Past Medical History: Reviewed- Non-Contributory -: HTN -: prolapse uterus -: HLD -: AFIB -: ESRD (Dr. Alfred/ Dr. Wilkinson) Past Surgical History: Reviewed- Non-Contributory -: Rt ear sx- child -: cataract surgery bliateral -: ORIF left hip 01/12/19 - Family History Family History: Reviewed- Non-Contributory - Family History Father -: Diabetes, Cancer, Kidney disease Mother -: Cancer Notes: - Social History Smoking Status: Never smoker Alcohol use: No CD- Drugs: No Caffeine use: No Review of Systems 10-point ROS is otherwise unremarkable Physical Examination - Vital Signs Temperature: 98.2 F Blood Pressure: 128/72 Pulse: 79 Respirations: 18 Pulse Ox (%): 94 - Physical Exam General: Alert, Oriented x3, Cooperative, Mild distress HEENT: Normocephalic, Other (Nasal bone fracture and epistaxis + ) Neck: Supple Respiratory: Clear to auscultation bilaterally, Normal air movement Cardiovascular: Regular rate/rhythm, Normal S1 S2 Capillary refill: <2 Seconds Gastrointestinal: Soft and benign, W/out hepatosplenomegaly Musculoskeletal: No clubbing, No swelling Integumentary: No rashes, No breakdown Neurological: Normal speech, Normal strength at 5/5 x4 extr, Cranial nerves 3-12 intact, Normal reflexes 2+ Lymphatics: No axilla or inguinal lymphadenopathy - Studies Laboratory Data (last 24 hrs) 04/30/24 04/30/24 04/30/24 16:10 16:10 16:10 WBC 6.40 Hgb 9.4 L Hct 29.5 L Plt Count 162 PT 17.8 H INR 1.64 APTT 39.5 H Sodium Potassium BUN Creatinine Glucose Magnesium 04/30/24 16:10 WBC Hgb Hct Plt Count PT INR APTT Sodium 135 L Potassium 4.8 BUN 53 H Creatinine 4.64 H Glucose 292 H Magnesium 2.1 Assessment and Plan - Problems (Diagnosis) (1) Fall Current Visit: Yes Status: Acute Plan: Fall Nasal bone fracture Epistaxis Patient had nasal packing in the ER Still continues to bleed H&H monitored closely Transfuse as needed Patient is on Eliquis and Plavix Will hold ENT consulted Hypertension Antihypertensives titrated Continue home medications and titrate as needed Hyperlipidemia Continue statin ESRD on dialysis Nephrology consulted Monitor renal parameters Electrolytes monitor and replace accordingly Diabetes Insulin sliding scale Accu-Chek before every meal and at bedtime Anemia of chronic disease Monitor H&H closely No overt bleeding at this time GI/DVT prophylaxis Advanced directive full code Discharge Plan: Home Plan to discharge in: 48 Hours - Advance Directives Does patient have a Living Will: No Does patient have a Durable POA for Healthcare: No - Code Status/Comfort Care Code Status: Full Code Time Spent Managing Pts Care (In Minutes): 48
[2024-04-30] MEDS ORDERED: D50W 25 GM/50 ML SYRINGE IV PRN (21:21)
[2024-04-30] MEDS ORDERED: HYDROCODONE/APAP 5/325 MG TAB PO PRN (21:21)
[2024-04-30] MEDS ORDERED: GLUCAGON 1 MG/VIAL IM PRN (21:21)
[2024-04-30] MEDS ORDERED: D10W 125 ML IV PRN (21:35)
[2024-04-30 22:42] VITALS: O2SAT 98
[2024-04-30 22:43] VITALS: BMI 22.3
[2024-05-01 06:47] LABS: Absolute Lymphocytes (CBC) 0.5 K/uL (0.7-4.9); Absolute Monocytes 0.8 K/uL (0.1-1.3); Absolute Neutrophil 6.9 K/uL (1.8-8.0); Basophils % 0.5 % (0-1.3); Eosinophils % 0.6 % (0-4.4); Hematocrit 28.3 % (36.0-45.0); MCH 29.3 pg (27.0-35.0); MCHC 31.8 g/dL (32.0-36.0); MCV 92.1 fL (80-100); MPV 8.5 fL (7.6-11.3); Monocytes % 9.9 % (3.3-12.3); Platelets 171 thou/uL (152-406); RBC Red Blood Cell Count 3.08 M/uL (3.86-4.86); Red Cell Distribution Width 18.7 % (12.1-15.2)
[2024-05-01 07:06] LABS: ALT/SGPT 16 U/L (13-56); Albumin 2.9 g/dL (3.4-5.0); Albumin/Globulin Ratio 0.9 (1.1-1.8); Alkaline Phosphatase 89 U/L (45-117); BUN Blood Urea Nitrogen 57 mg/dL (7-18); Bicarbonate 23 mEq/L (21-32); Bilirubin Total 0.5 mg/dL (0.2-1.0); Globulin 3.3 g/dL (2.3-3.5); Glomerular Filtration Rate 8 ml/min (=/>90); Glucose Level 182 mg/dL (74-106); Protein, Total 6.2 g/dL (6.4-8.2); Sodium Level 136 mEq/L (136-145)
[2024-05-01 07:07] LABS: AST/SGOT < 10 U/L (15-37)
[2024-05-01] MEDS: INSULIN REGULAR (HUMAN) 100 UNIT/ML SQ SCH ×2 (07:30→11:30)
[2024-05-01] MEDS ORDERED: INSULIN REGULAR (HUMAN) 100 UNIT/ML SQ SCH (07:30)
[2024-05-01] MEDS: HYDRALAZINE HCL 20 MG/ML VIAL IV ONE (08:32)
[2024-05-01] MEDS: ACETAMINOPHEN 325 MG TABLET PO PRN (09:04)
--- NOTE | 2024-05-01 10:42 | P.PN ---
Subjective Date of Service: 05/01/24 Chief Complaint: Fall , Epistaxis Pt is resting comfortably in bed. Nasal packing in place. Holding ELiquis. No recent nose bleed. No acute event overnight. Review of Systems General: Unremarkable Eyes: Unremarkable ENT: Other (nose bleed) Respiratory: Unremarkable Cardiovascular: Unremarkable Gastrointestinal: Unremarkable Genitourinary: Unremarkable Musculoskeletal: Unremarkable Integumentary: Unremarkable Neurological: Unremarkable Lymphatics: Unremarkable Physical Examination - Vital Signs Temperature: 98.6 F Blood Pressure: 129/56 Pulse: 57 Respirations: 15 Pulse Ox (%): 97 - Physical Exam General: Alert, In no apparent distress, Oriented x3 HEENT: Atraumatic, Normocephalic, PERRLA, Other (bilateral nasal packing in place.) Neck: Supple, 2+ carotid pulse no bruit, JVD not distended Respiratory: Clear to auscultation bilaterally, Normal air movement Cardiovascular: No edema, Normal pulses, Regular rate/rhythm, Normal S1 S2 Capillary refill: <2 Seconds Gastrointestinal: Normal bowel sounds, Soft and benign, Non-distended Musculoskeletal: No clubbing, No swelling Integumentary: No rashes, No breakdown Neurological: Normal gait, Normal speech, Normal strength at 5/5 x4 extr Lymphatics: No axilla or inguinal lymphadenopathy - Studies Laboratory Data (last 24 hrs) 04/30/24 04/30/24 04/30/24 16:10 16:10 16:10 WBC 6.40 Hgb 9.4 L Hct 29.5 L Plt Count 162 PT 17.8 H INR 1.64 APTT 39.5 H Sodium Potassium BUN Creatinine Glucose Magnesium 04/30/24 16:10 WBC Hgb Hct Plt Count PT INR APTT Sodium 135 L Potassium 4.8 BUN 53 H Creatinine 4.64 H Glucose 292 H Magnesium 2.1 Assessment And Plan - Plan Fall: Will continue fall precaution. Willc heck vitamin D. Nasal bone fracture: S/p fall at home. Per imaging study. Epistaxis: No recent nose bleed. Patient had nasal packing in the ER. Consulted ENT. Will hold eliquis and plavix. Hypertension: Will continue home med with prn iv hydralazine. Hyperlipidemia: Continue statin Hyperkalemia/ Hypercalcemia: Will improve with HD. ESRD on dialysis: Will continue HD per schedule. Consulted Nephrology. Diabetes: Will continue accuchek, SSI and ADA diet. Anemia of chronic disease: Hgb is 9.0. WIll monitor H/H. Transfuse when Hgb < 8. GI ppx: protonix DVT ppx: SCD Code: full code
[2024-05-01 12:20] VITALS: BP 150/52; TEMP 98.1
--- NOTE | 2024-05-01 14:55 | EKG ---
Test Date: 2024-04-30 Test Time: 16:33:08 Marketing Administrator: [place] MEASUREMENT RESULTS: Intervals: Rate: 55 ME: QRSD: 102 QT: 466 QTc: 445 [place]: P: ME: QRS: -40 T: 79 INTERPRETIVE STATEMENTS: Junctional rhythm Left axis deviation Septal infarct, age undetermined Abnormal ECG Compared to ECG 04/30/2024 16:30:57 Ventricular premature complex(es) no longer present Myocardial infarct finding still present Electronically Signed On 05-01-24 14:51:13 CDT by Willie Nogueira
--- NOTE | 2024-05-01 14:55 | EKG ---
Test Date: 2024-04-30 Test Time: 16:30:57 Zyglo Inspector: [place] MEASUREMENT RESULTS: Intervals: Rate: 57 HI: QRSD: 98 QT: 452 QTc: 439 [place]: P: HI: QRS: -42 T: 65 INTERPRETIVE STATEMENTS: Junctional rhythm with occasional premature ventricular complexes Left axis deviation Septal infarct, age undetermined Abnormal ECG Compared to ECG 04/05/2024 21:29:24 Junctional rhythm now present Ventricular premature complex(es) now present Left-axis deviation now present Sinus rhythm no longer present Myocardial infarct finding still present Electronically Signed On 05-01-24 14:51:14 CDT by Willie Nogueira
--- NOTE | 2024-05-01 18:21 | P.DS ---
Admission Date: 04/30/24 Discharge Date: 05/01/24 Disposition: ROUTINE DISCHARGE Discharge Condition: FAIR Reason for Admission: Fall , Epistaxis Hospital Course: VENESSA HAD FALLEN AND HAD EPISTAXIS. SHE IS STABLE WITH NOSE PACKING. SHE WILL VISIT HER ENT. SHE AFTER HD WAS SENT HOME IN STABLE CONDITION WITH POOR PROGNOSIS. SHE FALLS OFTEN, SHE DOES NOT PAY ATTENTION. HAS BP DROPS OFF AND ON Vital Signs/Physical Exam: Temp Pulse Resp BP Pulse Ox 98.1 F 62 13 150/52 H 99 05/01/24 12:00 05/01/24 12:00 05/01/24 12:00 05/01/24 12:00 05/01/24 12:00 Laboratory Data at Discharge: WBC 8.30 thou/uL (4.3-10.9) 05/01/24 06:37 Hgb 9.0 g/dL (12.0-15.0) L 05/01/24 06:37 Hct 28.3 % (36.0-45.0) L 05/01/24 06:37 Plt Count 171 thou/uL (152-406) 05/01/24 06:37 PT 17.8 SECONDS (9.5-12.5) H 04/30/24 16:10 INR 1.64 04/30/24 16:10 APTT 39.5 SECONDS (24.3-36.9) H 04/30/24 16:10 Sodium 136 mEq/L (136-145) 05/01/24 06:37 Potassium 5.0 mEq/L (3.5-5.1) 05/01/24 06:37 BUN 57 mg/dL (7-18) H 05/01/24 06:37 Creatinine 4.90 mg/dL (0.55-1.02) H 05/01/24 06:37 Glucose 182 mg/dL (74-106) H 05/01/24 06:37 Magnesium 2.1 mg/dL (1.6-2.4) 04/30/24 16:10 Total Bilirubin 0.5 mg/dL (0.2-1.0) 05/01/24 06:37 AST < 10 U/L (15-37) L 05/01/24 06:37 ALT 16 U/L (13-56) 05/01/24 06:37 Alkaline Phosphatase 89 U/L (45-117) 05/01/24 06:37 Home Medications: Atorvastatin Calcium 20 mg PO DAILY AT SUPPER 01/11/19 Apixaban [Eliquis *] 2.5 mg PO BID #60 tablet 02/01/19 Clopidogrel Bisulfate [Plavix*] 1 tab PO DAILY 10/02/23 Lisinopril [Zestril] 20 mg PO DAILY AT SUPPER 10/02/23 Cholecalciferol (Vitamin D3) [Vitamin D3] 1,000 unit PO DAILY 02/08/24 Cyanocobalamin [Vitamin B-12*] 1,000 mcg PO DAILY 02/08/24 Sitagliptin Phosphate [Januvia] 50 mg PO DAILY 02/08/24 Sucroferric Oxyhydroxide [Velphoro] 500 mg PO AC 02/08/24 Amiodarone HCl [Cordarone*] 200 mg PO BID 05/01/24 Amlodipine Besylate 5 mg PO DAILY 05/01/24 Torsemide [Demadex*] See Rx Instructions .ROUTE .COMPLEX 05/01/24 Followup: Zafar Alfred DO [ACTIVE - CAN ADMIT] - Jass Gandhi MD [Primary Care Provider] - Katelin Cruz DO [ACTIVE - CAN ADMIT] -
--- NOTE | 2024-05-01 19:11 | CON ---
Date of Consultation: 05/01/2024 Chief Complaint: Nose bleed. History Of Present Illness: The patient is an 83-year-old female with past medical history of diabetes, hypertension, end-stage renal failure, on dialysis, followed by Dr. Alfred, who presented to the emergency room with bilateral acute nose bleed which started after a fall where the patient hit her nose. Two rhino rocket packs were placed by Isra Glass in the emergency room and then she was subsequently admitted. I was consulted for further evaluation. Upon arrival to the bedside, the patient is awake, alert, oriented, and in no acute distress with 2 rhino rockets situated in bilateral nasal cavities. She denies coughing up any bright red blood and nasal pain has improved since the packs were placed. No other ENT complaints today. Past Medical History: As mentioned above. Allergies: NO KNOWN DRUG ALLERGIES. Home Medications: Atorvastatin, calcium, Eliquis, clopidogrel, lisinopril, amiodarone, hydrochloride, amlodipine besylate, cholecalciferol, cyanocobalamin, sitagliptin phosphate, lisinopril, and Prinivil. Past Surgical History: Right ear surgery, bilateral cataract surgery, and left hip ORIF. Review of Systems: Head: Negative for headache. Positive for trauma, but negative for bruising. Eyes: Negative for eye drainage, blurred vision, or double vision. Ears: Negative for otorrhea, ear pain. Nose: Positive for moderate nasal pain and swelling and bilateral nosebleeds. Oral Cavity: Negative for throat pain, odynophagia, dysphagia, or blood pooling in the oropharynx. Neck: Negative for swelling, erythema, enlarged lymph nodes, or thyromegaly. Physical Examination: Vital Signs: Stable. General: The patient is alert and oriented to person, place, and time, in no acute distress. Head: Atraumatic, normocephalic. Eyes: PERRLA/EOMI. Ears: Deferred. Nose: Positive excoriation over the nasal bridge and tube intact. Rhino rockets 1 in each nasal cavity intact with mild dried blood noted at the nares. No active bleeding or blood clots. Oral Cavity: Posterior oropharynx intact. No evidence of posterior oropharyngeal blood or blood clots. Neck: Supple. Trachea midline. Diagnosis: Acute bilateral nasal epistaxis, status post bilateral nasal packing in the emergency room-stable. Recommendations: 1. Continuing with both packs in the nose and then the plan is to remove 1 pack in 2 days and hopefully remove the second pack within 3 to 4 days in the outpatient setting. 2. Recommend holding off on anticoagulants until these packs can be safely removed without rebleeding. KAI/LINDSAY Voice ID: [id number] Report ID: [id number] [facility]
--- NOTE | 2024-05-01 21:28 | P.CNS ---
Date of Consult: 05/01/24 Reason for Consult: ESRD Requesting Physician: Max Davis Chief Complaint: Fall , Epistaxis History of Present Illness: 83 yrs old Female with past medical history of diabetes, hypertension, ESRD on dialysis followed by Dr. Alfred presented to ED with nosebleed which started after a fall . Patient is a poor historian hence most of the history is obtained from the chart review and also talking to the ER physician and family members at the bedside. Patient is also hard of hearing. Patient apparently had a fall today and had trauma in the nasal bone and started having bleeding from bilateral nasal cavities especially on the right. Denies any fever or chills. Denies any chest pain or shortness of breath. Patient denies any loss of consciousness or syncopal episodes. Patient was assessed in the ER and was found to have epistaxis and had nasal packing was done and was admitted for further management. Patient is on Eliquis as well as on Plavix. [id number] 15:55 This 83 yrs old Female presents to ER via EMS with complaints of Nose Bleed. cp 15:55 The patient presents with a nose bleed, that is continuous bright red, causative cp factors include: takes Eliquis and Plavix nasal trauma, from fall, appears swelling, pain. Onset: The symptoms/episode began/occurred just prior to arrival. Associated signs and symptoms: Loss of consciousness: the patient experienced no loss of consciousness. Allergies No Known Allergies Allergy (Verified 02/08/24 12:46) Home medications list reviewed: Yes Home Medications: Atorvastatin Calcium 20 mg PO DAILY AT SUPPER 01/11/19 Apixaban [Eliquis *] 2.5 mg PO BID #60 tablet 02/01/19 Clopidogrel Bisulfate [Plavix*] 1 tab PO DAILY 10/02/23 Lisinopril [Zestril] 20 mg PO DAILY AT SUPPER 10/02/23 Cholecalciferol (Vitamin D3) [Vitamin D3] 1,000 unit PO DAILY 02/08/24 Cyanocobalamin [Vitamin B-12*] 1,000 mcg PO DAILY 02/08/24 Sitagliptin Phosphate [Januvia] 50 mg PO DAILY 02/08/24 Sucroferric Oxyhydroxide [Velphoro] 500 mg PO AC 02/08/24 Amiodarone HCl [Cordarone*] 200 mg PO BID 05/01/24 Amlodipine Besylate 5 mg PO DAILY 05/01/24 Torsemide [Demadex*] See Rx Instructions .ROUTE .COMPLEX 05/01/24 - Past Medical/Surgical History Diabetic: Yes -: HTN -: prolapse uterus -: HLD -: AFIB -: ESRD (Dr. Alfred/ Dr. Wilkinson) -: Rt ear sx- child -: cataract surgery bliateral -: ORIF left hip 01/12/19 - Family History Father Medical History: Diabetes, Cancer, Kidney disease Mother Medical History: Cancer Notes: - Social History Smoking Status: Current every day smoker Alcohol use: No CD- Drugs: No Caffeine use: No Place of Residence: Home Review of Systems 10-point ROS is otherwise unremarkable General: Weakness Respiratory: SOB with Excertion Cardiovascular: Edema Physical Examination Temp Pulse Resp BP Pulse Ox 98.1 F 62 13 150/52 H 99 05/01/24 12:00 05/01/24 12:00 05/01/24 12:00 05/01/24 12:00 05/01/24 12:00 General: Oriented x3, Cooperative HEENT: Sclerae nonicteric Neck: Supple Respiratory: Diminished Cardiovascular: Regular rate/rhythm, Edema Gastrointestinal: Soft and benign, Non-distended Musculoskeletal: No clubbing, No contractures Integumentary: No rashes, No cyanosis Neurological: Normal speech Blood work reviewed in the chart. Imagings Data: [id number] EXAM DESCRIPTION: RAD - Chest Single View - 04/30/2024 4:01 pm CLINICAL HISTORY: fall Chest pain. COMPARISON: Chest Single View dated 04/05/2024; Chest Single View dated 02/15/2024; Chest Single View dated 01/14/2024; Chest Single View dated 12/27/2023 FINDINGS: Portable technique limits examination quality. Moderate bilateral pulmonary opacities are present with moderate right pleural effusion likely representing pulmonary edema. The heart is moderately enlarged in size. No displaced fractures. IMPRESSION: Moderate CHF versus volume overload pattern. 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 Gandhi Thank you kindly for the consultation
== END 2024-05-01 18:06 | disposition home or self-care (01) ==
LOC: ER 15:31 → ERHOLD 21:07 → INTOOBSV 21:07 → 2ND 21:55
PROVIDERS: ADMIT Family Medicine; ATTEND Hospitalist
DX: S02.2XXA Fracture of nasal bones, initial encounter for closed fracture (principal); R04.0 Epistaxis; N18.6 End stage renal disease; W22.8XXA Striking against or struck by other objects, initial encounter; Y93.E1 Activity, personal bathing and showering; Y92.012 Bathroom of single-family (private) house as the place of occurrence of the external cause; E78.5 Hyperlipidemia, unspecified; E11.22 Type 2 diabetes mellitus with diabetic chronic kidney disease; I12.0 Hypertensive chronic kidney disease with stage 5 chronic kidney disease or end stage renal disease; D63.1 Anemia in chronic kidney disease; I50.32 Chronic diastolic (congestive) heart failure; Z99.2 Dependence on renal dialysis
CPT/HCPCS: 93005 ×2; 85025 ×2; 80048; 36415; 83735; 85610; 82947 ×2; 85730; 85018 ×2; 80053; 70450; 72125; 70486; 76377; 71045; 90935; 99285; J0360; G0378 ×3

== ENCOUNTER 2024-06-24 04:00 | Emergency (ER) | payer OTHER ==
[2024-06-24] MEDS ORDERED: TDAP (DIPHTH,PERTUSS(ACELL),TET VAC) 0.5 ML VIAL IMVAC ONE (04:42)
--- NOTE | 2024-06-24 06:30 | EDPHYS ---
Physician Documentation [facility] Name: Luisa Sanchez Age: 84 yrs Sex: Female : 1940 Arrival Date: 06/24/2024 Time: 04:00 Bed 6 Private MD: ED Physician Zain Franks HPI: 06/24 04:15 This 84 yrs old Female presents to ER via Wheelchair with complaints of Fall Injury, ec2 Facial Injury, Arm Injury. 04:15 Patient arrives today for evaluation after a fall. No LOC, is on Plavix and Eliquis. ec2 Patient reports that she hit her nose. Patient reports no prodromal symptoms, states that she was try to get out of bed and subsequently tripped and fell. Reports left upper extremity pain as well as right elbow pain.. Historical: - Allergies: 04:16 No Known Allergies; jj7 - PMHx: 04:16 Diabetes - NIDDM; Dialysis (kidney disease); Hyperlipidemia; Hypertension; kidney jj7 disease; - PSHx: 04:16 diaylsis fistula to left upper arm; foot; hip; Skin grafting; Stented artery; jj7 - Immunization history:: Client reports having NOT received the Covid vaccine. none. - Immunization history: Last tetanus immunization: unknown. - Infectious Disease History:: Denies. - Social history: Uses tobacco products: cigarettes, [address] drugs, IV drugs, alcohol. - Social history:: Smoking status: Patient reports the use of cigarette tobacco products, smokes one pack cigarettes per day. Patient/guardian denies using alcohol, street drugs. ROS: 04:16 Constitutional: as per hpi ec2 Exam: 04:16 Constitutional: Patient arrives GEN: No acute distress HEENT: -Head: no ec2 deformities -Eyes: EOMI CV: regular rate LUNGS: no respiratory distress ABD: non-tender SKIN: Skin tears noted to the right elbow MSK: No C/T/L spine deformities RUE w/o bony deformity, TTP to the right elbow LUE w/o bony deformity, TTP to the left humerus, fistula noted, palpable thrill RLE w/o bony deformity LLE w/o bony deformity NEURO: moves all extremities equally, GCS 15 (E4, V5, M6) Vital Signs: 04:14 BP 168 / 60; Pulse 63; Resp 18; Temp 98.3; Pulse Ox 95% on R/A; Pain 0/10; kd4 06:29 BP 154 / 49; kd4 06:56 Pulse 58; Resp 18; Temp 98.1; Pulse Ox 96% on R/A; Pain 0/10; kd4 04:14 Pain Scale: Adult kd4 06:56 Pain Scale: Adult kd4 [place] Score: 04:14 Eye Response: spontaneous(4). Motor Response: obeys commands(6). Verbal Response: kd4 oriented(5). Total: 15. Trauma Score (Adult): 04:11 Eye Response: spontaneous(1); Verbal Response: oriented(1); Motor Response: obeys jj7 commands(2); Systolic BP: > 89 mm Hg(4); Respiratory Rate: 10 to 29 per min(4); [place]lee Score: 15; Trauma Score: 12 MDM: 04:09 Patient medically screened. ec2 04:16 Data reviewed: vital signs. ED course: Patient arrives today for evaluation after a ec2 fall. Examination remarkable for well-appearing nontoxic dividual's otherwise in no acute distress with a reassuring examination. Will obtain radiographs as well as CT scan of the head and C-spine. Differential includes contusion, abrasion, bony fracture, intracranial brain bleed.. 05:55 ED course: Chest x-ray independently reviewed and interpreted by me, shows ec2 cardiomegaly, right-sided pleural effusion. When compared to external imaging, this appears similar.. 06:27 ED course: CT head and C-spine showed no acute traumatic process. Pelvis, humerus, ec2 elbow x-rays show no bony fracture. . 06/24 04:11 Order name: CT Head C Spine ec2 06/24 04:11 Order name: CXR XRAY ec2 06/24 04:11 Order name: Humerus Left XRAY ec2 06/24 04:11 Order name: Elbow Right 3 View XRAY ec2 06/24 04:11 Order name: Pelvis XRAY ec2 Administered Medications: 04:54 Drug: Boostrix Tdap IM 0.5 ml IM once; as a single dose Route: IM; Site: right deltoid; kd4 07:01 Follow up: Response: No adverse reaction kd4 Disposition Summary: 06/24/24 06:30 Discharge Ordered Notes: Location: Home ec2 Condition: Stable ec2 Diagnosis - Fall on same level, unspecified ec2 - Abrasion of right elbow ec2 Followup: ec2 - With: Private Physician - When: - Reason: Re-evaluation by your physician Discharge Instructions: - Discharge Summary Sheet ec2 - Fall Prevention in the Home, Adult, [id number] ec2 Forms: - Medication Reconciliation Form ec2 - Antibiotic Education ec2 - Prescription Opioid Use ec2 - Patient Portal Instructions ec2 - Leadership Thank You Letter ec2 Signatures: Dispatcher [employer] Sveta Altamirano RN RN jj7 Zain Franks MD MD ec2 Rian Enciso RN RN kd4 Corrections: (The following items were deleted from the chart) 04:11 04:11 Humerus Left+RAD.RAD.BRZ ordered. EDMS EDMS 04:11 04:11 Elbow Right 3 View+RAD.RAD.BRZ ordered. EDMS EDMS 04:11 04:11 Pelvis+RAD.RAD.BRZ ordered. EDMS EDMS
--- NOTE | 2024-06-24 06:30 | ER ---
Nurse's Notes [facility] Name: Luisa Sanchez Age: 84 yrs Sex: Female : 1940 Arrival Date: 06/24/2024 Time: 04:00 Bed 6 Private MD: Diagnosis: Fall on same level, unspecified;Abrasion of right elbow Presentation: 06/24 04:11 Chief complaint: Patient states: PT STATES SHE TRIPPED WHILE GETTING OUT OF BED. FELL jj7 ON THE CARPETED FLOOR AND IT HER NOSE AND HURT HER LEFT ARM. Mechanism of Injury: Fall from standing position. 04:11 Acuity: ELIEZER 2 jj7 04:11 Method Of Arrival: Wheelchair j7 07:00 Coronavirus screen: Client denies travel out of the [place] in the last 14 days. Ebola kd4 Screen: No symptoms or risks identified at this time. Initial Sepsis Screen: Does the patient meet any 2 criteria? No. Patient's initial sepsis screen is negative. Does the patient have a suspected source of infection? No. Patient's initial sepsis screen is negative. Risk Assessment: Do you want to hurt yourself or someone else? Patient reports no desire to harm self or others. 07:01 Onset of symptoms is unknown. kd4 Historical: - Allergies: 04:16 No Known Allergies; jj7 - PMHx: 04:16 Diabetes - NIDDM; Dialysis (kidney disease); Hyperlipidemia; Hypertension; kidney jj7 disease; - PSHx: 04:16 diaylsis fistula to left upper arm; foot; hip; Skin grafting; Stented artery; jj7 - Immunization history:: Client reports having NOT received the Covid vaccine. none. - Immunization history: Last tetanus immunization: unknown. - Infectious Disease History:: Denies. - Social history: Uses tobacco products: cigarettes, [address] drugs, IV drugs, alcohol. - Social history:: Smoking status: Patient reports the use of cigarette tobacco products, smokes one pack cigarettes per day. Patient/guardian denies using alcohol, street drugs. Screenin:11 Abuse screen: Denies threats or abuse. Nutritional screening: No deficits noted. jj7 Tuberculosis screening: No symptoms or risk factors identified. 04:14 [facility] ED Fall Risk Assessment (Adult) History of falling in the last 3 months, kd4 including since admission Yes- fall prone (multiple falls) (3 pts) Confusion or Disorientation No (0 pts) Intoxicated or Sedated No (0 pts) Impaired Gait Yes (1 pt) Mobility Assist Device Used Yes (1 pt) Altered Elimination No (0 pt) Score/Fall Risk Level 3 or more points = High Risk Oriented to surroundings, Maintained a safe environment, Educated pt \T\ family on fall prevention, incl call for assistance when getting out of bed, Offered frequent toileting (1:1 observation), Remained with patient while ambulating. Assessment: 04:11 General: Appears in no apparent distress. uncomfortable, Behavior is calm, cooperative, jj7 appropriate for age. Pain: Complains of pain in left arm and nose. Musculoskeletal: Reports pain in left arm and nose. 04:17 General: 84 years old female a/o x 4, ambulatory with unsteady gait with walker present kd4 with c/o of fall. patient states she fell face forward , c/o of face /nose pain, and left arm pain. patient has a fistula on left arm with bruit and thrill present. skin tear noted to right arm. patient on eliquis and plavix.. Neuro: Level of Consciousness is awake, alert, obeys commands, Oriented to person, place, time, situation, Appropriate for age. Cardiovascular: Dialysis shunt: in the left arm, with palpable thrill, with auscultated bruit, with no erythema, with no edema, no bleeding noted. Respiratory: Airway is patent Trachea midline Respiratory effort is even, Respiratory pattern is regular. 06:59 General: skin tear to r arm cleaned and dress up. patient wheeled out via w/c to family kd4 car. ok to d/c per MD, all labs and imaging unremarkable per MD. Vital Signs: 04:14 BP 168 / 60; Pulse 63; Resp 18; Temp 98.3; Pulse Ox 95% on R/A; Pain 0/10; kd4 06:29 BP 154 / 49; kd4 06:56 Pulse 58; Resp 18; Temp 98.1; Pulse Ox 96% on R/A; Pain 0/10; kd4 04:14 Pain Scale: Adult kd4 06:56 Pain Scale: Adult kd4 [place] Coma Score: 04:14 Eye Response: spontaneous(4). Motor Response: obeys commands(6). Verbal Response: kd4 oriented(5). Total: 15. Trauma Score (Adult): 04:11 Eye Response: spontaneous(1); Verbal Response: oriented(1); Motor Response: obeys jj7 commands(2); Systolic BP: > 89 mm Hg(4); Respiratory Rate: 10 to 29 per min(4); Kimberlee Score: 15; Trauma Score: 12 ED Course: 04:02 Patient arrived in ED. jj6 04:09 Zain Franks MD is Attending Physician. ec2 04:11 Patient has correct armband on for positive identification. Bed in low position. Call jj7 light in reach. Adult w/ patient. 04:11 Patient maintains SpO2 saturation greater than 95% on room air. jj7 04:14 Triage completed. jj7 04:47 CXR XRAY In Process Unspecified. EDMS 04:47 Humerus Left XRAY In Process Unspecified. EDMS 04:47 Elbow Right 3 View XRAY In Process Unspecified. EDMS 04:47 Pelvis XRAY In Process Unspecified. EDMS 04:50 CT Head C Spine In Process Unspecified. EDMS 06:56 Provided Education on: d/c instruction. kd4 06:56 No provider procedures requiring assistance completed. Patient did not have IV access kd4 during this emergency room visit. 07:01 Arm band placed on right wrist. kd4 Administered Medications: 04:54 Drug: Boostrix Tdap IM 0.5 ml IM once; as a single dose Route: IM; Site: right deltoid; kd4 07:01 Follow up: Response: No adverse reaction kd4 Medication: 06:56 Vaccine Information Statement (VIS) provided today. Questions and/or concerns kd4 addressed. VIS edition date: June 20, 2021. Outcome: 06:30 Discharge ordered by . ec2 06:56 Discharged to home via wheelchair, with family, kd4 06:56 Condition: good 06:56 Discharge instructions given to patient, family, Instructed on discharge instructions, Demonstrated understanding of instructions, follow-up care, 07:02 Patient left the ED. kd4 Signatures: Dispatcher [employer] EDMS Soco Echevarria jj6 Sveta Concepcion RN RN jj7 Franks, Zain, MD MD ec2 Dahissa, Karim, RN RN kd4
[2024-06-24 07:08] VITALS: BP 154/49
[2024-06-24 07:10] VITALS: TEMP 98.1; O2SAT 96
--- NOTE | 2024-06-25 20:55 | RAD REPORT ---
EXAM DESCRIPTION: RAD - Elbow Right 3 View - 06/24/2024 4:45 am CLINICAL HISTORY: The patient is 84 years old and is Female; fall TECHNIQUE: Three views of the right elbow. COMPARISON: No relevant prior studies available. FINDINGS: Bones/joints: Osteophyte at the coronoid process of the ulna. Exam is otherwise unremark able. No acute fracture. No effusion. No dislocation. Soft tissues: Unremarkable. IMPRESSION: No acute findings in the right elbow. Electronically signed by: Leatha Gutierrez MD 06/24/2024 05:40 AM CDT RP ND Due to temporary technical issues with the PACS/Fluency reporting system, reports are being signed by the in house radiologists without review as a courtesy to insure prompt reporting. The interpreting radiologist is fully responsible for the content of the report.
--- NOTE | 2024-06-25 20:58 | RAD REPORT ---
EXAM DESCRIPTION: RAD - Pelvis - 06/24/2024 4:45 am CLINICAL HISTORY: The patient is 84 years old and is Female; fall TECHNIQUE: Single frontal view of the pelvis. COMPARISON: No relevant prior studies available. FINDINGS: Bones/joints: No acute fracture visualized. Bone demineralization. Previous ORIF proximal left femur. No dislocation. Soft tissues: Unremarkable. Vasculature: Atherosclerotic calcification. IMPRESSION: No acute fracture visualized. Electronically signed by: Leatha Gutierrez MD 06/24/2024 05:39 AM CDT ND Due to temporary technical issues with the PACS/Fluency reporting system, reports are being signed by the in house radiologists without review as a courtesy to insure prompt reporting. The interpreting radiologist is fully responsible for the content of the report.
--- NOTE | 2024-06-25 21:03 | RAD REPORT ---
EXAM DESCRIPTION: CT - Head C Spine Mpr Wo Con - 06/24/2024 4:48 am CLINICAL HISTORY: The patient is 84 years old and is Female; fall TECHNIQUE: Axial computed tomography images of the head/brain and cervical spine without intravenous contrast. Sagittal and coronal reformatted images were created and reviewed. This CT exam was pe rformed using one or more of the following dose reduction techniques: automated exposure control, a djustment of the mA and/or kV according to patient size, and/or use of iterative reconstruction techn ique. COMPARISON: No relevant prior studies available. FINDINGS: Brain: Mild nonspecific white matter changes likely related to chronic microvascular isc hemic disease. No hemorrhage. Ventricles: Unremarkable. No ventriculomegaly. Skull: No acute fracture. Sinuses: Unremarkable as visualized. No acute sinusitis. Mastoid air cells: Unremarkable as visualized. No mastoid effusion. Vertebrae: See below. Discs/spinal canal/neural foramina: Multilevel disc space narrowing with degenerative endplate ch anges. Moderate left neural foraminal narrowing at C3-4. Soft tissues: Unremarkable. Pleural space: Right pleural effusion. IMPRESSION: No acute intracranial abnormality. No acute fracture or subluxation. Electronically signed by: Jacob Torres MD 06/24/2024 05:43 AM CDT RP 8 Due to temporary technical issues with the PACS/Fluency reporting system, reports are being signed by the in house radiologists without review as a courtesy to insure prompt reporting. The interpreting radiologist is fully responsible for the content of the report.
--- NOTE | 2024-06-25 21:23 | RAD REPORT ---
EXAM DESCRIPTION: RAD - Humerus Left - 06/24/2024 4:45 am CLINICAL HISTORY: The patient is 84 years old and is Female; injury TECHNIQUE: Two views of the left humerus. COMPARISON: No relevant prior studies available. FINDINGS: Bones/joints: No acute fracture visualized. No dislocation. Soft tissues: Unremarkable. IMPRESSION: No acute fracture visualized. Electronically signed by: Leatha Gutierrez MD 06/24/2024 05:39 AM CDT RP ND Due to temporary technical issues with the PACS/Fluency reporting system, reports are being signed by the in house radiologists without review as a courtesy to insure prompt reporting. The interpreting radiologist is fully responsible for the content of the report.
--- NOTE | 2024-06-25 21:45 | RAD REPORT ---
EXAM DESCRIPTION: RAD - Chest Single View - 06/24/2024 4:45 am CLINICAL HISTORY: The patient is 84 years old and is Female; fall TECHNIQUE: Frontal view of the chest. COMPARISON: No relevant prior studies available. FINDINGS: Lungs: Prominent interstitial markings which may indicate chronic changes and/or mild in terstitial edema. Hazy right basilar opacification. Pleural space: Right pleural effusion. No pneumothorax. Heart: Unremarkable. Mediastinum: Unremarkable. Normal mediastinal contour. Bones/joints: No acute findings. IMPRESSION: 1. Right pleural effusion. 2. Prominent interstitial markings which may indicate chronic changes and/or mild interstitial mini a. 3. Hazy right basilar opacification. Electronically signed by: Jacob Torres MD 06/24/2024 05:22 AM CDT 8 Due to temporary technical issues with the PACS/Fluency reporting system, reports are being signed by the in house radiologists without review as a courtesy to insure prompt reporting. The interpreting radiologist is fully responsible for the content of the report.
== END 2024-06-24 07:02 | disposition home or self-care (01) ==
LOC: ER 04:00
DX: S50.311A Abrasion of right elbow, initial encounter (principal); W01.0XXA Fall on same level from slipping, tripping and stumbling without subsequent striking against object, initial encounter; E11.22 Type 2 diabetes mellitus with diabetic chronic kidney disease; N18.6 End stage renal disease; Z99.2 Dependence on renal dialysis; Z79.01 Long term (current) use of anticoagulants; F17.210 Nicotine dependence, cigarettes, uncomplicated; Z23 Encounter for immunization
CPT/HCPCS: 70450; 71045; 72125; 72170; 96372; 99284

== ENCOUNTER 2024-09-05 20:38 | Emergency (ER) | payer OTHER ==
--- NOTE | 2024-09-05 21:21 | EDPHYS ---
Physician Documentation [facility] Name: Luisa Sanchez Age: 84 yrs Sex: Female : 1940 Arrival Date: 09/05/2024 Time: 20:38 Bed Waiting Private MD: Zafar Alfred ED Physician Dimitri Briones HPI: 09/05 20:47 This 84 yrs old Female presents to ER via Unassigned with complaints of sp4 Abnormal Lab Results, Pt sent to Er by 21:20 Left prior to MD Examination . sp4 MDM: 20:52 Medical Screening Exam initiated sp4 Administered Medications: No medications were administered Disposition: 21:21 Chart complete. sp4 Disposition Summary: 09/05/24 21:20 Eloped Notes: Disposition: before being seen by provider sp4 Reason: (see nurse's notes) sp4 Problem: new sp4 Symptoms: are unchanged sp4 Condition: Undetermined sp4 Diagnosis - Abnormal Labs / Medical exam sp4 Followup: sp4 - With: Private Physician - When: As needed - Reason: Signatures: Dimitri Briones MD MD sp4
--- NOTE | 2024-09-05 21:21 | ER ---
Nurse's Notes [facility] Name: Luisa Sanchez Age: 84 yrs Sex: Female : 1940 Arrival Date: 09/05/2024 Time: 20:38 Bed Waiting Private MD: Zafar Alfred Diagnosis: Abnormal Labs / Medical exam Presentation: 09/05 21:20 Note left prior to triage. provider notified. lg3 ED Course: 20:43 Patient arrived in ED. gm2 20:46 Zafar Alfred DO is Private Physician. gm2 20:47 Dimitri Briones MD is Attending Physician. sp4 Administered Medications: No medications were administered Outcome: 21:24 Patient left the ED. lg3 Signatures: Caroline Light RN RN luis carlos3 Dimitri Briones MD MD sp4 Arely Oliveira gm2
== END 2024-09-05 21:24 | disposition left against medical advice (07) ==
LOC: ER 20:38
DX: Z02.9 Encounter for administrative examinations, unspecified (principal)

== ENCOUNTER 2024-09-06 08:24 | Observation (INO) | payer OTHER ==
[2024-09-06 09:26] LABS: Absolute Eosinophils 0.1 K/uL (0-0.5); Absolute Lymphocytes (CBC) 0.6 K/uL (0.7-4.9); Absolute Neutrophil 10.4 K/uL (1.8-8.0); Basophils % 0.4 % (0-1.3); Eosinophils % 0.5 % (0-4.4); Hematocrit 26.2 % (36.0-45.0); Hemoglobin 7.8 g/dL (12.0-15.0); Lymphocytes % 4.8 % (15.3-44.8); MCH 25.9 pg (27.0-35.0); MCHC 29.7 g/dL (32.0-36.0); MCV 87.2 fL (80-100); MPV 8.7 fL (7.6-11.3); Monocytes % 8.5 % (3.3-12.3); Neutrophils % 85.8 % (41.7-73.7); Nucleated Red Blood Cells % 0.1 % (0-0); Platelets 218 thou/uL (152-406); RBC Red Blood Cell Count 3.01 M/uL (3.86-4.86); Red Cell Distribution Width 21.5 % (12.1-15.2)
[2024-09-06 09:29] LABS: PT Prothrombin Time 18.4 SECONDS (9.4-12.5); Protime INR 1.67
[2024-09-06 09:57] LABS: Anisocytosis 1+; Blood Morphology Comment NOTED (NOT SEEN); Hypochromasia 1+; Platelet Estimate ADEQ; Polychromasia SLIGHT; White Blood Cell Scan OK (OK)
--- NOTE | 2024-09-06 11:07 | ER ---
Nurse's Notes [facility] Name: Luisa Sanchez Age: 84 yrs Sex: Female : 1940 Arrival Date: 09/06/2024 Time: 08:24 Bed 20 Private MD: Diagnosis: Dyspnea;Combined systolic (congestive) and diastolic (congestive) heart failure;Abnormal levels of other serum enzymes-ELEVATED TROPONIN;Anemia in chronic kidney disease;Anemia, unspecified;Weakness;Type 2 diabetes mellitus with hyperglycemia;Non ST elevation GA;Dependence on renal dialysis-M,W,F Presentation: 09/06 08:39 Chief complaint: Patient's son or daughter states: her Hgb was 6.9, is on dialysis and iw has diabetes , last dialyzed Wednesday and was due today , Dr. Alfred sent to ER. Coronavirus screen: At this time, the client does not indicate any symptoms associated with coronavirus-19. Ebola Screen: No symptoms or risks identified at this time. Initial Sepsis Screen: Does the patient meet any 2 criteria? No. Patient's initial sepsis screen is negative. Does the patient have a suspected source of infection? No. Patient's initial sepsis screen is negative. Risk Assessment: Do you want to hurt yourself or someone else? Patient reports no desire to harm self or others. Onset of symptoms was September 06, 2024. 08:39 Method Of Arrival: Wheelchair iw 08:39 Acuity: ELIEZER 3 iw Historical: - Allergies: 08:41 No Known Allergies; iw - PMHx: 08:41 Dialysis (kidney disease); Diabetes - NIDDM; Hyperlipidemia; Hypertension; kidney iw disease; - PSHx: 08:41 diaylsis fistula to left upper arm; foot; hip; Skin grafting; Stented artery; iw - Immunization history:: Adult Immunizations not up to date. - Infectious Disease History:: Denies. - Social history:: Smoking status: Patient reports the use of cigarette tobacco products, smokes one pack cigarettes per day. Screenin:25 [facility] ED Fall Risk Assessment (Adult) History of falling in the last 3 months, db including since admission No falls in past 3 months (0 pts) Confusion or Disorientation No (0 pts) Intoxicated or Sedated No (0 pts) Impaired Gait No (0 pts) Mobility Assist Device Used No (0 pt) Altered Elimination No (0 pt) Score/Fall Risk Level 0 - 2 = Low Risk Oriented to surroundings, Maintained a safe environment. Abuse screen: Denies threats or abuse. Denies injuries from another. Nutritional screening: No deficits noted. Tuberculosis screening: No symptoms or risk factors identified. Assessment: 09:25 Reassessment: Patient appears in no apparent distress at this time. Patient and/or db family updated on plan of care and expected duration. Pain level reassessed. Patient is alert, oriented x 3, equal unlabored respirations, skin warm/dry/pink. General: Appears in no apparent distress. comfortable, Behavior is calm, cooperative. Pain: Denies pain. Neuro: Level of Consciousness is awake, alert, obeys commands, Oriented to person, place, time, situation. Respiratory: Airway is patent Respiratory effort is even, unlabored, Respiratory pattern is regular, symmetrical. 09:40 Reassessment: PATIENT PLACED ON NC 2L DUE TO WHEN RELAXED O2 DROPS TO 85% ON RA. db 10:23 Reassessment: Patient appears in no apparent distress at this time. Patient and/or db family updated on plan of care and expected duration. Pain level reassessed. Patient is alert, oriented x 3, equal unlabored respirations, skin warm/dry/pink. PHLEBOTOMY AT PATIENT BEDSIDE. 11:20 Reassessment: BLOOD ADMINISTRATION HELD PER DR. RAYO UNTIL DIALYSIS DUE TO FLUID db OVERLOAD AND PT HAS NOT HAD DIALYSIS TODAY. 12:00 Reassessment: Patient appears in no apparent distress at this time. Patient and/or db family updated on plan of care and expected duration. Pain level reassessed. Patient is alert, oriented x 3, equal unlabored respirations, skin warm/dry/pink. 13:17 Reassessment: Patient appears in no apparent distress at this time. Patient and/or db family updated on plan of care and expected duration. Pain level reassessed. Patient is alert, oriented x 3, equal unlabored respirations, skin warm/dry/pink. General: Appears in no apparent distress. comfortable, Behavior is calm, cooperative. Vital Signs: 08:39 BP 136 / 48; Pulse 61; Resp 16; Temp 97; Pulse Ox 95% on R/A; Weight 54.43 kg; Height 5 iw ft. 4 in. ; 11:13 BP 153 / 60; Pulse 63; Resp 20; Pulse Ox 100% on 2 lpm NC; db 12:00 BP 156 / 54; Pulse 59; Resp 16; Pulse Ox 98% on 2 lpm NC; db 13:00 BP 154 / 58; Pulse 59; Resp 18; Pulse Ox 97% on R/A; db 08:39 Body Mass Index 20.60 (54.43 kg, 162.56 cm) iw ED Course: 08:27 Patient arrived in ED. im 08:30 Isra Rayo MD is Attending Physician. twyla 08:41 Triage completed. iw 08:41 Arm band placed on. iw 08:53 Babs Robles, ALDO is Primary Nurse. db 09:13 Initial lab(s) drawn, by me, sent to lab. EKG done, reviewed by Isra Rayo MD. db Missed attempt(s): 22 gauge in right wrist. Bleeding controlled, band aid applied, catheter tip intact. 09:32 Missed attempt(s): 22 gauge in right antecubital area. Bleeding controlled, band aid db applied, catheter tip intact. 09:57 XRAY Chest (1 view) In Process Unspecified. EDMS 10:12 Inserted saline lock: 24 gauge in right wrist, using aseptic technique. Flushed with 10 bc6 mL NS. 11:05 Jass Gandhi MD is Hospitalizing Provider. twyla 12:13 CM met with patient, grand daughter Nicholas and daughter Pooja at the bedside in the ED ane exam room. patient identified by name and . Demographic sheet confirmed. Nicholas states patient Pooja in a single story home. Ms. Sanchez reports she performs ADLs with minimal assistance and use of a walker most of her time and a wheelchair if going long distances. Other DME in the home includes an oxygen concentrator used PRN at 2 L and a bedside commode. They are unsure of what company the concentrator is serviced through. reports to [facility] to receive dialysis services on Mondays, Wednesdays and Fridays. Both and Nicholas state Daniel Shell does not wish to stay in the hospital. Nicholas asked why patient was being admitted and why blood products were ordered for if her Hgb has increased since the last lab result from the previous week. CM relayed questions and concerns to ER provider and provider stated he would discuss plan of care with patient and family. CM team will continue to follow and coordinate care during hospital admission. 12:24 Patient has correct armband on for positive identification. Bed in low position. Call db light in reach. Side rails up X 1. Provided Education on: DISCHARGE AND FOLLOWUP. Client placed on continuous cardiac and pulse oximetry monitoring. NIBP monitoring applied. retail salesperson on. Pulse ox on. NIBP on. Warm blanket given. Pillow given. 13:17 No provider procedures requiring assistance completed. IV discontinued, intact, db bleeding controlled, No redness/swelling at site. Administered Medications: No medications were administered Medication: 12:24 VIS not applicable for this client. db Outcome: 11:07 Decision to Hospitalize by Provider. twyla 12:39 Discharge ordered by MD. twyla 13:17 Discharged to home via wheelchair, with family, db 13:17 Condition: stable 13:17 Discharge instructions given to patient, family, Instructed on discharge instructions, follow up and referral plans. 13:18 Patient left the ED. db Signatures: Dispatcher [employer] EDMS Isra Rayo MD MD cha Williams, Irene, RN Babs Lane RN RN Rozina Glasgow 6 Shameka Gaytan Andie RN ALDO walls Corrections: (The following items were deleted from the chart) 08:41 08:39 BP 136 / 48; Pulse 61bpm; Resp 16bpm; Pulse Ox 95% RA; Temp 97F; iw iw 12:25 12:00 BP 156 / 54; Pulse 59bpm; Resp 16bpm; Pulse Ox 98% RA; db db
--- NOTE | 2024-09-06 11:07 | EDPHYS ---
Physician Documentation [facility] Name: Luisa Sanchez Age: 84 yrs Sex: Female : 1940 Arrival Date: 09/06/2024 Time: 08:24 Bed 20 Private MD: Isra Osorio HPI: 09/06 10:56 This 84 yrs old Female presents to ER via Wheelchair with complaints of twyla Abnormal Lab Results. 10:56 The patient has shortness of breath at rest, with light activity. Onset: The twyla symptoms/episode began/occurred 3 day(s) ago. Duration: The symptoms are continuous, and are steadily getting worse. DIALYSIS , ANEMIA, CHF. Historical: - Allergies: 08:41 No Known Allergies; iw - PMHx: 08:41 Dialysis (kidney disease); Diabetes - NIDDM; Hyperlipidemia; Hypertension; kidney iw disease; - PSHx: 08:41 diaylsis fistula to left upper arm; foot; hip; Skin grafting; Stented artery; iw - Immunization history:: Adult Immunizations not up to date. - Infectious Disease History:: Denies. - Social history:: Smoking status: Patient reports the use of cigarette tobacco products, smokes one pack cigarettes per day. ROS: 11:02 Constitutional: Negative for fever, chills, and weight loss, Eyes: Negative for injury, twyla pain, redness, and discharge, ENT: Negative for injury, pain, and discharge, Neck: Negative for injury, pain, and swelling, Cardiovascular: Negative for chest pain, palpitations, and edema, Abdomen/GI: Negative for abdominal pain, nausea, vomiting, diarrhea, and constipation, Back: Negative for injury and pain, : Negative for injury, bleeding, discharge, and swelling, MS/Extremity: Negative for injury and deformity, Skin: Negative for injury, rash, and discoloration, Neuro: Negative for headache, weakness, numbness, tingling, and seizure, Psych: Negative for depression, anxiety, suicide ideation, homicidal ideation, and hallucinations, Allergy/Immunology: Negative for hives, rash, and allergies, Endocrine: Negative for neck swelling, polydipsia, polyuria, polyphagia, and marked weight changes, Hematologic/Lymphatic: Negative for swollen nodes, abnormal bleeding, and unusual bruising, 11:02 Respiratory: Positive for shortness of breath, Exam: 11:02 Constitutional: This is a well developed, well nourished patient who is awake, alert, twyla and in no acute distress. Head/Face: Normocephalic, atraumatic. Eyes: Pupils equal round and reactive to light, extra-ocular motions intact. Lids and lashes normal. Conjunctiva and sclera are non-icteric and not injected. Cornea within normal limits. Periorbital areas with no swelling, redness, or edema. Neck: Trachea midline, no thyromegaly or masses palpated, and no cervical lymphadenopathy. Supple, full range of motion without nuchal rigidity, or vertebral point tenderness. No Meningismus. Chest/axilla: Normal chest wall appearance and motion. Nontender with no deformity. No lesions are appreciated. Cardiovascular: Regular rate and rhythm with a normal S1 and S2. No gallops, murmurs, or rubs. Normal PMI, no JVD. No pulse deficits. Respiratory: Lungs have equal breath sounds bilaterally, clear to auscultation and percussion. No rales, rhonchi or wheezes noted. No increased work of breathing, no retractions or nasal flaring. Abdomen/GI: Soft, non-tender, with normal bowel sounds. No distension or tympany. No guarding or rebound. No evidence of tenderness throughout. Back: No spinal tenderness. No costovertebral tenderness. Full range of motion. Female : Normal external genitalia. Skin: Warm, dry with normal turgor. Normal color with no rashes, no lesions, and no evidence of cellulitis. MS/ Extremity: Pulses equal, no cyanosis. Neurovascular intact. Full, normal range of motion. Neuro: Awake and alert, GCS 15, oriented to person, place, time, and situation. Cranial nerves II-XII grossly intact. Motor strength 5/5 in all extremities. Sensory grossly intact. Cerebellar exam normal. Normal gait. Psych: Awake, alert, with orientation to person, place and time. Behavior, mood, and affect are within normal limits. 11:02 ENT: JVD. 11:17 ECG was reviewed by the Attending Physician. [facility] Vital Signs: 08:39 BP 136 / 48; Pulse 61; Resp 16; Temp 97; Pulse Ox 95% on R/A; Weight 54.43 kg; Height 5 iw ft. 4 in. ; 11:13 BP 153 / 60; Pulse 63; Resp 20; Pulse Ox 100% on 2 lpm NC; db 12:00 BP 156 / 54; Pulse 59; Resp 16; Pulse Ox 98% on 2 lpm NC; db 13:00 BP 154 / 58; Pulse 59; Resp 18; Pulse Ox 97% on R/A; db 08:39 Body Mass Index 20.60 (54.43 kg, 162.56 cm) iw MDM: 08:31 Medical Screening Exam initiated twyla 11:03 Differential diagnosis: Anemia Anxiety Reaction asthma, Bronchitis CHF exacerbation, twyla Chronic Obstructive Pulmonary Disease pneumonia, pulmonary edema, Pulmonary Embolism reactive airway disease, Sepsis Unstable Angina. Antibiotic administration: Not indicated. Differential Diagnosis altered mental status, sepsis, flu. Immunization status: Pneumococcal vaccine: within last 5 years. Influenza vaccine: within last 5 years. Data reviewed: vital signs, nurses notes, lab test result(s), EKG, radiologic studies, plain films. Consideration of Admission/Observation Patient was admitted/placed on observation. Escalation of care including admission/observation considered. I considered the following discharge prescriptions or medication management in the emergency department Medications were administered in the Emergency Department. See MAR. Independent interpretation of the following test(s) in the Emergency Department EKG: See my EKG interpretation above. Test considered but Not performed: Ultrasound NO 2 D ECHO. Historians other than the Patient: Family Member: FAMILY WELL INFORMED. 12:41 ED course: DW WITH PT RISK OF LEAVING , POSSIBLE , ALL FAMILY AGREED TO GO HOME. [facility] 09/06 08:32 Order name: Basic Metabolic Panel; Complete Time: 11:19 [facility] 09/06 08:32 Order name: CBC with Diff; Complete Time: 10:43 [facility] 09/06 08:32 Order name: LFT's; Complete Time: 11:19 [facility] 09/06 08:32 Order name: Magnesium; Complete Time: 11:19 [facility] 09/06 08:32 Order name: NT PRO-BNP; Complete Time: 11:19 [facility] 09/06 08:32 Order name: PT-INR; Complete Time: 10:43 [facility] 09/06 08:32 Order name: Troponin HS; Complete Time: 11:19 [facility] 09/06 08:32 Order name: Urinalysis w/ reflexes 09/06 08:32 Order name: Lipase; Complete Time: 11:19 [facility] 09/06 08:43 Order name: Type And Screen; Complete Time: 11:17 [facility] 09/06 09:29 Order name: CBC Smear Scan; Complete Time: 10:43 [facility] 09/06 11:06 Order name: Packed RBC Leukored [facility] 09/06 08:32 Order name: XRAY Chest (1 view); Complete Time: 11:17 [facility] 09/06 08:32 Order name: EKG; Complete Time: 08:32 [facility] 09/06 11:14 Order name: CONS Physician Consult [facility] 09/06 08:32 Order name: Cardiac monitoring; Complete Time: 09:25 [facility] 09/06 08:32 Order name: EKG - Nurse/Tech; Complete Time: 09: [facility] 09/06 08:32 Order name: IV Saline Lock; Complete Time: : [facility] 09/06 08:32 Order name: Labs collected and sent; Complete Time: : [facility] 09/06 08:32 Order name: O2 Per Protocol; Complete Time: 09: [facility] 09/06 08:32 Order name: O2 Sat Monitoring; Complete Time: 09: [facility] 09/06 09:26 Order name: Labs - recollect needed: recollect type and screen fill tube, reband pt; bd Complete Time: 11:10 09/06 09:31 Order name: Labs - recollect needed: recollect green top; Complete Time: 11:10 bd EC:17 Rate is 58 beats/min. Rhythm is regular. QRS Blunt is Normal. MS interval is normal. No twyla Q waves. T waves are Normal. No ST changes noted. Clinical impression: Sinus bradycardia and No evidence of ischemia. Interpreted by me. Reviewed by me. Administered Medications: No medications were administered Disposition Summary: 09/06/24 12:39 Discharge Ordered Notes: Location: Home(09/06/24 12:39) twyla Problem: new(09/06/24 12:39) twyla Symptoms: have improved(09/06/24 12:39) twyla Condition: Fair(09/06/24 12:39) twyla Diagnosis - Dyspnea(09/06/24 12:39) twyla - Combined systolic (congestive) and diastolic (congestive) heart failure twyla - Abnormal levels of other serum enzymes - ELEVATED TROPONIN(09/06/24 12:39) twyla - Anemia in chronic kidney disease(09/06/24 12:39) twyla - Anemia, unspecified(09/06/24 12:39) twyla - Weakness(09/06/24 12:39) twyla - Type 2 diabetes mellitus with hyperglycemia(09/06/24 12:39) twyla - Non ST elevation [place] twyla - Dependence on renal dialysis - M,W,F(09/06/24 12:39) twyla Followup: twyla - With: Private Physician - When: Upon discharge from the Emergency Department - Reason: Recheck today's complaints, Continuance of care, Re-evaluation by your physician Discharge Instructions: - Discharge Summary Sheet twyla - Anemia twyla - Heart Failure, Diagnosis twyla - Type 2 Diabetes Mellitus, Diagnosis, Adult twyla - Hyperglycemia twyla - Weakness twyla - Dialysis twyal - Diabetes Mellitus and Nutrition, Adult twyla - Weakness, Fenp-vw-Wbws twyla - Heart Failure, Diagnosis, Knmp-lr-[id number] twyla - Heart-Healthy Eating Plan twyla - Heart Failure, Self-Care twyla - Heart Failure, Self-Care, Dpet-uf-Plya twyla Forms: - Medication Reconciliation Form twyla - Antibiotic Education twyla - Prescription Opioid Use twyla - Patient Portal Instructions twyla - Leadership Thank You Letter twyla Signatures: Dispatcher [employer] EDMS Livia Park Corey, MD MD cha Williams, Irene, RN RN iw Corrections: (The following items were deleted from the chart) 08:46 08:46 Labs - recollect needed ordered. bd bd 08:46 08:46 BB Add On+BB.LAB.BRZ ordered. [facility] EDHI 12:36 11:07 Observation twyla twyla 12:36 11:07 Jass Gandhi twyla twyla 12:36 11:07 Telemetry/MedSurg (observation) twyla twyla 12:36 11:07 Fair twyla twyla 12:36 11:07 new twyla twyla 12:36 11:07 have worsened twyla twyla 12:36 11:07 Standard twyla twyla 12:36 11:07 twyla twyla 12:36 11:07 Dyspnea twyla twyla 12:36 11:07 Cardiomegaly twyla twyla 12:36 11:07 Chronic combined systolic (congestive) and diastolic (congestive) heart failure twyla twyla 12:36 11:07 Anemia in chronic kidney disease twyla twyla 12:36 11:07 Anemia, unspecified twyla twyla 12:36 11:07 Weakness twyla twyla 12:36 11:07 Dependence on renal dialysis - M,W,F twyla twyla 12:36 11:18 Abnormal levels of other serum enzymes - elevated troponin twyla twyla 11:18 Pleural effusion, not elsewhere classified - right twyla [place] 11:19 Type 2 diabetes mellitus with hyperglycemia twyla [place]
[2024-09-06 11:09] LABS: ALT/SGPT 15 U/L (13-56); Albumin 2.6 g/dL (3.4-5.0); Albumin/Globulin Ratio 0.7 (1.1-1.8); Alkaline Phosphatase 130 U/L (45-117); Anion Gap 12.8 mEq/L (5.0-15.0); BUN Blood Urea Nitrogen 64 mg/dL (7-18); Bicarbonate 25 mEq/L (21-32); Bilirubin Direct 0.2 mg/dL (0-0.2); Bilirubin Indirect, Calculated 0.3 mg/dL (0.2-0.8); Bilirubin Total 0.5 mg/dL (0.2-1.0); Globulin 3.7 g/dL (2.3-3.5); Glomerular Filtration Rate 9 ml/min (=/>90); Glucose Level 239 mg/dL (74-106); Lipase 20 U/L (13-75); Magnesium 2.2 mg/dL (1.6-2.4); NT PRO-BNP 57404 pg/mL (<450); Potassium 4.8 mEq/L (3.5-5.1); Protein, Total 6.3 g/dL (6.4-8.2); Sodium Level 137 mEq/L (136-145)
--- NOTE | 2024-09-06 11:12 | RAD REPORT ---
EXAMINATION: ONE VIEW CHEST XR CLINICAL INDICATION: Female, 84 years old.,COUGH TECHNIQUE: Frontal chest projection is submitted. Examination is limited by patient positioning and t echnique. COMPARISON: 06/24/2024 FINDINGS: Stable patchy central predominant airspace opacities and layering moderate pleural effusion. Central interstitial prominence is mildly progressive since the prior exam. No pneumothorax or sizable left effusion. The heart is normal in size. IMPRESSION: Progressive central interstitial prominence, may relate to worsening congestion or edema. Other stable findings including moderate layering right pleural effusion.
[2024-09-06 11:14] LABS: AST/SGOT < 10 U/L (15-37)
[2024-09-06 11:17] LABS: Troponin High Sensitivity 63.1 pg/mL (<58.9)
--- NOTE | 2024-09-06 16:02 | P.SSS ---
Patient History Date of Service: 09/06/24 Reason for admission: WEAKNESS, ANEMIA History of Present Illness: DR. RAYO CALLED ME AT ABOUT 10 AND BEFORE LUNCH SHE SIGNED AGAINST MEDICAL ADVISE. I NEVER GOT TO SEE HER. Allergies No Known Allergies Allergy (Verified 02/08/24 12:46) Home Medications: Atorvastatin Calcium 20 mg PO DAILY AT SUPPER 01/11/19 Apixaban [Eliquis *] 2.5 mg PO BID #60 tablet 02/01/19 Clopidogrel Bisulfate [Plavix*] 1 tab PO DAILY 10/02/23 Lisinopril [Zestril] 20 mg PO DAILY AT SUPPER 10/02/23 Cholecalciferol (Vitamin D3) [Vitamin D3] 1,000 unit PO DAILY 02/08/24 Cyanocobalamin [Vitamin B-12*] 1,000 mcg PO DAILY 02/08/24 Sitagliptin Phosphate [Januvia] 50 mg PO DAILY 02/08/24 Sucroferric Oxyhydroxide [Velphoro] 500 mg PO AC 02/08/24 Amiodarone HCl [Cordarone*] 200 mg PO BID 05/01/24 Amlodipine Besylate 5 mg PO DAILY 05/01/24 Torsemide [Demadex*] See Rx Instructions .ROUTE .COMPLEX 05/01/24 - Past Medical/Surgical History Diabetic: Yes -: HTN -: prolapse uterus -: HLD -: AFIB -: ESRD (Dr. Alfred/ Dr. Wilkinson) -: Rt ear sx- child -: cataract surgery bliateral -: ORIF left hip 01/12/19 - Family History Father -: Diabetes, Cancer, Kidney disease Mother -: Cancer Notes: - Social History Alcohol use: No CD- Drugs: No Caffeine use: No Physical Examination - Studies Laboratory Data (last 24 hrs) 09/06/24 09/06/24 09/06/24 10:23 09:13 09:13 WBC 12.20 H Hgb 7.8 L Hct 26.2 L Plt Count 218 PT 18.4 H INR 1.67 Sodium 137 Potassium 4.8 BUN 64 H Creatinine 4.54 H Glucose 239 H Magnesium 2.2 Total Bilirubin 0.5 AST < 10 L ALT 15 Alkaline Phosphatase 130 H Lipase 20 - Disposition Disposition: ROUTINE DISCHARGE
[2024-09-06 18:31] VITALS: TEMP 97
[2024-09-06 18:34] VITALS: BP 154/58; O2SAT 97
--- NOTE | 2024-09-07 12:19 | EKG ---
Test Date: 2024-09-06 Test Time: 09:19:09 Canine Enforcement Officer: REUBEN MEASUREMENT RESULTS: Intervals: Rate: 58 TX: 154 QRSD: 92 QT: 468 QTc: 459 Cecil: P: 83 TX: 154 QRS: -37 T: 78 INTERPRETIVE STATEMENTS: Sinus bradycardia Left axis deviation Pulmonary disease pattern Septal infarct, age undetermined Abnormal ECG Compared to ECG 04/30/2024 16:33:08 Junctional rhythm no longer present Myocardial infarct finding still present Electronically Signed On 09-07-24 12:15:30 CDT by Yuan Mathis
== END 2024-09-06 13:10 | disposition home or self-care (01) ==
LOC: ER 08:24 → ERHOLD 11:10
PROVIDERS: ADMIT Internal Medicine; ATTEND Internal Medicine
DX: I21.4 Non-ST elevation (NSTEMI) myocardial infarction (principal); I50.40 Unspecified combined systolic (congestive) and diastolic (congestive) heart failure; E11.22 Type 2 diabetes mellitus with diabetic chronic kidney disease; N18.9 Chronic kidney disease, unspecified; E11.65 Type 2 diabetes mellitus with hyperglycemia; R53.1 Weakness; R79.89 Other specified abnormal findings of blood chemistry; Z99.2 Dependence on renal dialysis; Z53.21 Procedure and treatment not carried out due to patient leaving prior to being seen by health care provider
CPT/HCPCS: 36415; 71045; 80048; 80076; 83690; 83735; 83880; 84484; 85025; 85610; 86850; 86900; 86901; 86920; 93005; 99284

== ENCOUNTER 2024-09-11 18:54 | Inpatient (IN) | payer OTHER ==
--- NOTE | 2024-09-11 20:24 | RAD REPORT ---
Procedure: Chest Single View HISTORY: Shortness of breath COMPARISON: September 06, 2024 FINDINGS: Mild bilateral interstitial lung opacities Azeva-am-keiozrgw right and small left pleural effusions The heart is mildly to moderately IMPRESSION: CHF
[2024-09-11 20:57] LABS: Absolute Basophils 0.1 K/uL (0-0.5); Absolute Eosinophils 0.1 K/uL (0-0.5); Absolute Lymphocytes (CBC) 0.5 K/uL (0.7-4.9); Absolute Monocytes 0.9 K/uL (0.1-1.3); Absolute Neutrophil 6.4 K/uL (1.8-8.0); Basophils % 0.9 % (0-1.3); Eosinophils % 1.2 % (0-4.4); Hematocrit 22.5 % (36.0-45.0); MCH 27.1 pg (27.0-35.0); MCHC 31.1 g/dL (32.0-36.0); MCV 87.1 fL (80-100); MPV 7.8 fL (7.6-11.3); Monocytes % 11.6 % (3.3-12.3); Neutrophils % 80.3 % (41.7-73.7); Nucleated Red Blood Cells % 0.1 % (0-0); Platelets 220 thou/uL (152-406); RBC Red Blood Cell Count 2.58 M/uL (3.86-4.86); Red Cell Distribution Width 22.6 % (12.1-15.2)
[2024-09-11 20:59] LABS: PT Prothrombin Time 17.6 SECONDS (9.4-12.5); Protime INR 1.59
[2024-09-11 21:16] LABS: ALT/SGPT < 14 U/L (13-56); AST/SGOT < 10 U/L (15-37); Albumin 2.2 g/dL (3.4-5.0); Albumin/Globulin Ratio 0.6 (1.1-1.8); Alkaline Phosphatase 127 U/L (45-117); Anion Gap 9.3 mEq/L (5.0-15.0); BUN Blood Urea Nitrogen 26 mg/dL (7-18); Bicarbonate 30 mEq/L (21-32); Bilirubin Total 0.4 mg/dL (0.2-1.0); Globulin 3.7 g/dL (2.3-3.5); Glomerular Filtration Rate 17 ml/min (=/>90); Glucose Level 224 mg/dL (74-106); Potassium 3.3 mEq/L (3.5-5.1); Protein, Total 5.9 g/dL (6.4-8.2); Sodium Level 137 mEq/L (136-145); Troponin High Sensitivity 27.8 pg/mL (<58.9)
[2024-09-11 21:49] LABS: Anisocytosis 2+; Blood Morphology Comment NOTED (NOT SEEN); Platelet Estimate ADEQ; White Blood Cell Scan OK (OK)
--- NOTE | 2024-09-11 21:55 | ER ---
Nurse's Notes [facility] Name: Luisa Sanchez Age: 84 yrs Sex: Female : 1940 Arrival Date: 09/11/2024 Time: 18:54 Bed 15 Private MD: Diagnosis: Acute on chronic combined systolic (congestive) and diastolic (congestive) heart failure;Anemia, unspecified;Anemia in chronic kidney disease Presentation: 09/11 19:21 Chief complaint: Patient states: Seen here last week for low hgb and patient needed cm10 blood transfusion but patient did not want to stay in the hospital. Pt states that she continues to feel weak. Coronavirus screen: Client denies travel out of the [place] in the last 14 days. Ebola Screen: Patient denies travel to an Ebola-affected area in the 21 days before illness onset. No symptoms or risks identified at this time. Initial Sepsis Screen: Does the patient meet any 2 criteria? No. Patient's initial sepsis screen is negative. Does the patient have a suspected source of infection? No. Patient's initial sepsis screen is negative. Risk Assessment: Do you want to hurt yourself or someone else? Patient reports no desire to harm self or others. Onset of symptoms was September 11, 2024. 19:21 Method Of Arrival: Wheelchair cm10 19:21 Acuity: ELIEZER 3 cm10 Triage Assessment: 19:24 General: Appears in no apparent distress. comfortable, Behavior is calm, cooperative. cm10 Pain: Denies pain. Neuro: No deficits noted. Level of Consciousness is awake, alert, obeys commands, Oriented to person, place, time, situation, Appropriate for age. Respiratory: No deficits noted. Airway is patent Respiratory effort is even, unlabored, Respiratory pattern is regular, symmetrical. Historical: - Allergies: 19:20 No Known Allergies; cm10 - PMHx: 19:20 Diabetes - NIDDM; Dialysis (kidney disease); Hyperlipidemia; Hypertension; kidney cm10 disease; Anemia; - PSHx: 19:20 diaylsis fistula to left upper arm; foot; hip; Skin grafting; Stented artery; cm10 - Immunization history:: Adult Immunizations up to date. - Infectious Disease History:: Denies. - Social history:: Smoking status: Patient reports the use of cigarette tobacco products, smokes one pack cigarettes per day. Screenin:00 [facility] ED Fall Risk Assessment (Adult) History of falling in the last 3 months, rg5 including since admission No falls in past 3 months (0 pts) Confusion or Disorientation No (0 pts) Intoxicated or Sedated No (0 pts) Impaired Gait Yes (1 pt) Mobility Assist Device Used Yes (1 pt) Altered Elimination No (0 pt) Score/Fall Risk Level 0 - 2 = Low Risk Oriented to surroundings, Maintained a safe environment, Hourly rounding (assess needs \T\ fall precautionary measures) done. Abuse screen: Denies threats or abuse. Nutritional screening: No deficits noted. Tuberculosis screening: No symptoms or risk factors identified. Assessment: 20:00 General: Appears in no apparent distress. Behavior is calm, cooperative, appropriate rg5 for age. 20:00 Pain: Denies pain. Neuro: Level of Consciousness is awake, alert, obeys commands, rg5 Oriented to person, place, time. Cardiovascular: Heart tones S1 S2 Patient's skin is warm and dry. Rhythm is regular. Respiratory: Reports cough that is productive, Airway is patent Trachea midline Respiratory effort is even, unlabored, Respiratory pattern is regular, symmetrical, Breath sounds are clear bilaterally. GI: Abdomen is round non-distended, Bowel sounds present X 4 quads. Abd is soft and non tender. : No signs and/or symptoms were reported regarding the genitourinary system. EENT: Parent/caregiver reports the patient having decreased hearing in right ear and left ear. Derm: Skin is intact, Skin is dry, Skin is normal, Skin temperature is warm. Musculoskeletal: Circulation, motion, and sensation intact. Range of motion: intact in all extremities. 21:00 Reassessment: Patient and/or family updated on plan of care and expected duration. Pain rg5 level reassessed. Patient is alert, oriented x 3, equal unlabored respirations, skin warm/dry/pink. 22:29 Reassessment: Patient and/or family updated on plan of care and expected duration. Pain rg5 level reassessed. Patient is alert, oriented x 3, equal unlabored respirations, skin warm/dry/pink. 23:23 Reassessment: No changes from previously documented assessment. Patient and/or family rg5 updated on plan of care and expected duration. Pain level reassessed. Patient is alert, oriented x 3, equal unlabored respirations, skin warm/dry/pink. Vital Signs: 19:21 BP 121 / 50; Pulse 61; Resp 16; Temp 97.5(TE); Pulse Ox 99% on R/A; Weight 54.43 kg; cm10 Height 5 ft. 4 in. ; Pain 0/10; 20:00 BP 105 / 42; Pulse 61; Resp 18; Pulse Ox 94% on R/A; rg5 21:00 BP 137 / 46; Pulse 63; Resp 18; Pulse Ox 97% on R/A; Pain 0/10; rg5 22:15 BP 127 / 46; Pulse 60; Resp 17; Pulse Ox 96% on R/A; rg5 23:22 BP 148 / 53; Pulse 68; Resp 17; Pulse Ox 98% on R/A; Pain 0/10; rg5 19:21 Body Mass Index 20.60 (54.43 kg, 162.56 cm) cm10 19:21 Pain Scale: Adult cm10 21:00 Pain Scale: Adult rg5 23:22 Pain Scale: Adult rg5 ED Course: 18:56 Patient arrived in ED. im 19:24 Triage completed. cm10 19:24 Arm band placed on right wrist. Patient placed in waiting room. cm10 19:26 [facility]ina [facility]C [facility] 19:26 Lucrecia Taylor MD is Attending Physician. dr5 20:00 Patient has correct armband on for positive identification. Bed in low position. Call rg5 light in reach. Side rails up X 1. 20:00 No provider procedures requiring assistance completed. Inserted saline lock: 20 gauge rg5 in right wrist, using aseptic technique. Blood collected. Flushed with 10 mL NS. 20:05 Glenn Schaeffer, ALDO is Primary Nurse. rg5 20:08 Chest Single View XRAY In Process Unspecified. EDMS 21:54 Montrell Gomez MD is Hospitalizing Provider. dr5 23:58 Patient admitted, IV remains in place. intact, No redness/swelling at site. rg5 23:59 Provided Education on: needs for admit. rg5 Administered Medications: No medications were administered Medication: 20:00 VIS not applicable for this client. rg5 Outcome: 21:54 Decision to Hospitalize by Provider. dr5 23:58 Admitted to Med/surg accompanied by nurse, via wheelchair, rg5 23:58 Condition: stable 23:58 Instructed on the need for admit, 23:59 Patient left the ED. rg5 Signatures: Dispatcher [employer] Shameka Roberto Clarissa, RN RN cm10 Glenn Schaeffer RN RN rg5 Gigi Ospina, BINDER CUTTER-C BINDER CUTTER-Cdr5
--- NOTE | 2024-09-11 21:55 | EDPHYS ---
Physician Documentation [facility] Name: Luisa Sanchez Age: 84 yrs Sex: Female : 1940 Arrival Date: 09/11/2024 Time: 18:54 Bed 15 Private MD: ED Physician Lucrecia Taylor HPI: 09/11 21:19 This 84 yrs old Female presents to ER via Wheelchair with complaints of dr5 Abnormal Lab Results. 21:19 Onset: The symptoms/episode began/occurred 1 week(s) ago. Patient is a 84-year-old dr5 female coming in with low hemoglobin, lightheadedness, weakness. Patient was in ER last week and was supposed to be admitted and declined admission and went home without blood transfusion. Patient is on dialysis Wednesday and was dialyzed today. Dialysis recommended today that patient come in tomorrow for repeat for fluid overload. Patient reports shortness of breath when walking, lightheadedness when walking, and no energy. Patient denies chest pain with ambulation or at rest.. Historical: - Allergies: 19:20 No Known Allergies; cm10 - PMHx: 19:20 Diabetes - NIDDM; Dialysis (kidney disease); Hyperlipidemia; Hypertension; kidney cm10 disease; Anemia; - PSHx: 19:20 diaylsis fistula to left upper arm; foot; hip; Skin grafting; Stented artery; cm10 - Immunization history:: Adult Immunizations up to date. - Infectious Disease History:: Denies. - Social history:: Smoking status: Patient reports the use of cigarette tobacco products, smokes one pack cigarettes per day. ROS: 09/12 02:40 Constitutional: as per hpi dr5 Exam: 02:40 Constitutional: This is a well developed, well nourished patient who is awake, alert, dr5 and in no acute distress. Head/Face: Normocephalic, atraumatic. 02:40 Eyes: Pupils equal round and reactive to light, extra-ocular motions intact. Lids and lashes normal. Conjunctiva and sclera are non-icteric and not injected. Cornea within normal limits. Periorbital areas with no swelling, redness, or edema. ENT: Nares patent. No nasal discharge, no septal abnormalities noted. Tympanic membranes are normal and external auditory canals are clear. Oropharynx with no redness, swelling, or masses, exudates, or evidence of obstruction, uvula midline. Mucous membranes moist. Cardiovascular: Regular rate and rhythm with a normal S1 and S2. Normal PMI, no JVD. No pulse deficits. Respiratory: Lungs have equal breath sounds bilaterally, clear to auscultation. No rales, rhonchi or wheezes noted. No increased work of breathing, no retractions or nasal flaring. 02:40 Eyes: Conjunctiva: pale, bilaterally, 02:40 ENT: Exam is negative for acute changes, 02:40 Chest/axilla: Inspection: normal, Palpation: is normal, 02:40 Cardiovascular: Rate: normal, Rhythm: regular, Dialysis shunt: in the left bicep, with palpable thrill, with auscultated bruit, with no erythema, with no edema, no bleeding noted 02:40 Skin: Appearance: Color: normal in color, pink, Temperature: normal temperature, warm, 02:40 Neuro: Exam negative for acute changes, Orientation: is normal, appropriate for stated age, to person, place, time \T\ situation. Vital Signs: 09/11 19:21 BP 121 / 50; Pulse 61; Resp 16; Temp 97.5(TE); Pulse Ox 99% on R/A; Weight 54.43 kg; cm10 Height 5 ft. 4 in. ; Pain 0/10; 20:00 BP 105 / 42; Pulse 61; Resp 18; Pulse Ox 94% on R/A; rg5 21:00 BP 137 / 46; Pulse 63; Resp 18; Pulse Ox 97% on R/A; Pain 0/10; rg5 22:15 BP 127 / 46; Pulse 60; Resp 17; Pulse Ox 96% on R/A; rg5 23:22 BP 148 / 53; Pulse 68; Resp 17; Pulse Ox 98% on R/A; Pain 0/10; rg5 19:21 Body Mass Index 20.60 (54.43 kg, 162.56 cm) cm10 19:21 Pain Scale: Adult cm10 21:00 Pain Scale: Adult rg5 23:22 Pain Scale: Adult rg5 MDM: 19:32 Medical Screening Exam initiated dr5 19:43 Awaiting: ER Bed. Patient in lobby. . dr5 09/12 02:50 Differential diagnosis: Anemia, CKD, DKA. Data reviewed: vital signs, nurses notes. dr5 Consideration of Admission/Observation Patient was admitted/placed on observation. I considered the following discharge prescriptions or medication management in the emergency department Medications were administered in the Emergency Department. See MAR. Care significantly affected by the following chronic conditions: Diabetes, Hypertension, Chronic Kidney Disease. Care significantly affected by the following Social Determinants of Health: Poor access to healthcare and/or lack of insurance, Poor access to transportation. Counseling: I had a detailed discussion with the patient and/or guardian regarding the historical points, exam findings, and any diagnostic results supporting the discharge/admit diagnosis, the presence of at least one elevated blood pressure reading (>120/80) during this emergency department visit, lab results, radiology results, the need for further work-up and treatment in the hospital. ED course: Patient is a 84-year-old on dialysis Wednesday. Patient completed dialysis today and dialysis recommended her return tomorrow for another treatment. Patient was seen last week and needed blood transfusion at admission but patient refused. Patient returns today stating she wants to be admitted and have blood transfusion. Potassium low in ER, but hesitant to replace due to rising K and dialysis patients. Patient admitted and Elena Lui saw patient and admitted her.. 09/11 19:31 Order name: CBC with Diff; Complete Time: 21:52 dr5 09/11 19:31 Order name: PT-INR; Complete Time: 21:04 dr5 09/11 19:31 Order name: Troponin HS; Complete Time: 21:17 dr5 09/11 19:31 Order name: CMP; Complete Time: 21:17 dr5 09/11 19:31 Order name: Type And Screen [facility] 09/11 21:49 Order name: CBC Smear Scan; Complete Time: 21:52 EDID 09/11 22:59 Order name: Lactate w/ 2H reflex if indic. EDID 09/11 22:59 Order name: NT PRO-BNP EDID 09/11 22:59 Order name: Thyroid Stimulating Hormone EDID 09/11 22:59 Order name: Urinalysis w/ reflexes EDID 09/11 22:59 Order name: CBC with Automated Diff EDID 09/11 22:59 Order name: CBC with Automated Diff EDMS 09/11 22:59 Order name: Comprehensive Metabolic Panel EDID 09/11 22:59 Order name: Comprehensive Metabolic Panel EDID 09/11 22:59 Order name: Lipid Profile EDID 09/11 22:59 Order name: Lipid Profile EDID 09/11 22:59 Order name: Phosphorus EDID 09/11 22:59 Order name: Phosphorus EDID 09/11 22:59 Order name: PTT, Activated Partial Thromb EDMS 09/11 22:59 Order name: PTT, Activated Partial Thromb EDMS 09/11 22:59 Order name: Troponin High Sensitivity EDID 09/11 22:59 Order name: Troponin High Sensitivity EDID 09/11 22:59 Order name: Troponin High Sensitivity EDID 09/11 22:59 Order name: Troponin High Sensitivity EDID 09/11 23:01 Order name: Packed RBC Leukored EDID 09/11 23:01 Order name: Hematocrit EDID 09/11 23:01 Order name: Hemoglobin [facility] 09/11 19:31 Order name: Chest Single View XRAY; Complete Time: 20:33 dr5 09/11 19:31 Order name: EKG; Complete Time: 19:31 dr5 09/11 22:59 Order name: CONS Physician Consult [facility] 09/11 19:31 Order name: Cardiac monitoring; Complete Time: 20:27 dr5 09/11 19:31 Order name: EKG - Nurse/Tech; Complete Time: 21:23 dr5 09/11 19:31 Order name: IV Saline Lock; Complete Time: 20:40 dr5 09/11 19:31 Order name: Labs collected and sent; Complete Time: 20:50 dr5 09/11 19:31 Order name: O2 Per Protocol; Complete Time: 20:28 dr5 09/11 19:31 Order name: O2 Sat Monitoring; Complete Time: 20:28 dr5 09/11 20:56 Order name: Misc. Order: RECOLLECT-BIGPURP; Complete Time: 21:58 ty EC/28 21:00 Rate is 66 beats/min. Rhythm is regular. QRS [place] is Normal. GA interval is normal at dr5 174 msec. QRS interval is normal at 86 msec. QT interval is normal at 452 msec. Administered Medications: No medications were administered Disposition Summary: 09/11/24 21:54 Hospitalization Ordered Notes: Hospitalization Status: Inpatient Admission dr5 Provider: Montrell Gomez Location: Telemetry/MedSurg (Inpatient) dr5 Condition: Stable dr5 Problem: chronic dr5 Symptoms: have worsened dr5 Bed/Room Type: Standard dr5 Room Assignment: 405(09/11/24 23:19) cg Diagnosis - Acute on chronic combined systolic (congestive) and diastolic (congestive) heart dr5 failure - Anemia, unspecified dr5 - Anemia in chronic kidney disease dr5 Forms: - Medication Reconciliation Form dr5 - SBAR form dr5 - Leadership Thank You Letter dr5 Signatures: Dispatcher [employer] Nita Fabian RN RN Yaneth Morales RN RN cm10 Yunier Muñoz Dustin, CHEMISTRY PROFESSOR-C CHEMISTRY PROFESSOR-[facility]5 Corrections: (The following items were deleted from the chart) 23:19 21:54 dr5 cg
[2024-09-11] MEDS ORDERED: ONDANSETRON 4 MG (ODT) TAB PO PRN (22:50)
[2024-09-11] MEDS ORDERED: ZOLPIDEM TARTRATE 5 MG TABLET PO PRN (22:50)
--- NOTE | 2024-09-11 23:06 | P.HP ---
Certification for Inpatient With expected LOS: <2 Midnights Practitioner: I am a practitioner with admitting privileges, knowledge of patient current condition, hospital course, and medical plan of care. Services: Services provided to patient in accordance with Admission requirements found in Title 42 Section 412.3 of the Code of Federal Regulations Patient History Date of Service: 09/11/24 Reason for admission: acute on chronic heart failure, anemia, ESRD on HD, hypokalemia Allergies No Known Allergies Allergy (Verified 02/08/24 12:46) Home Medications: Atorvastatin Calcium 20 mg PO DAILY AT SUPPER 01/11/19 Apixaban [Eliquis *] 2.5 mg PO BID #60 tablet 02/01/19 Clopidogrel Bisulfate [Plavix*] 1 tab PO DAILY 10/02/23 Lisinopril [Zestril] 20 mg PO DAILY AT SUPPER 10/02/23 Cholecalciferol (Vitamin D3) [Vitamin D3] 1,000 unit PO DAILY 02/08/24 Cyanocobalamin [Vitamin B-12*] 1,000 mcg PO DAILY 02/08/24 Sitagliptin Phosphate [Januvia] 50 mg PO DAILY 02/08/24 Sucroferric Oxyhydroxide [Velphoro] 500 mg PO AC 02/08/24 Amiodarone HCl [Cordarone*] 200 mg PO BID 05/01/24 Amlodipine Besylate 5 mg PO DAILY 05/01/24 Torsemide [Demadex*] See Rx Instructions .ROUTE .COMPLEX 05/01/24 - Past Medical/Surgical History Diabetic: Yes -: HTN -: prolapse uterus -: HLD -: AFIB -: ESRD (Dr. Alfred/ Dr. Wilkinson) -: Rt ear sx- child -: cataract surgery bliateral -: ORIF left hip 01/12/19 - Family History Father -: Diabetes, Cancer, Kidney disease Mother -: Cancer Notes: - Social History Alcohol use: No CD- Drugs: No Caffeine use: No Review of Systems Respiratory: SOB with Excertion Gastrointestinal: No Distention Physical Examination - Vital Signs Temperature: 98 F Blood Pressure: 127/46 Pulse: 90 Respirations: 18 Pulse Ox (%): 97 - Physical Exam General: Oriented x3 HEENT: Atraumatic, Normocephalic Neck: JVD not distended Respiratory: Normal air movement Cardiovascular: No gallops, No rubs, No murmurs Gastrointestinal: Normal bowel sounds, Non-distended Musculoskeletal: No tenderness, Swelling (b/l lower extremities mildly edematous) Neurological: Normal speech, Normal strength at 5/5 x4 extr, Sensation intact Urinary: Other (adult diaper intact) - Studies Laboratory Data (last 24 hrs) 09/11/24 09/11/24 09/11/24 20:45 20:45 20:45 WBC 7.90 Hgb 7.0 L Hct 22.5 L Plt Count 220 PT 17.6 H INR 1.59 Sodium 137 Potassium 3.3 L BUN 26 H Creatinine 2.66 H Glucose 224 H Total Bilirubin 0.4 AST < 10 L ALT < 14 Alkaline Phosphatase 127 H Assessment and Plan - Problems (Diagnosis) (1) Acute on chronic heart failure Current Visit: Yes Status: Acute (2) Anemia Current Visit: Yes Status: Acute Qualifiers: Chronic kidney disease stage: on chronic dialysis (3) Hypokalemia Current Visit: Yes Status: Acute - Plan Acute on chronic heart failure-oxygen via nasal cannula, restriction, daily weights Anemia-holding Eliquis and Plavix. 1 unit of PRBC to be given during dialysis possibly tomorrow. Hypokalemia-potassium replete possibly given during dialysis tomorrow. ESRD on hemodialysis-nephrology consulted for possible hemodialysis tomorrow. - Advance Directives Does patient have a Living Will: No Does patient have a Durable POA for Healthcare: No
[2024-09-12 06:27] LABS: Specific Gravity 1.015 (1.005-1.030); Sqamous Epithelial >50 /HPF (None Seen); Transitional Epithelial <5 /HPF (None Seen); Urine Bacteria None Seen /HPF (<20); Urine Bilirubin NEGATIVE (Negative); Urine Blood Negative (Negative); Urine Clarity Extremely Turbid (Clear); Urine Color Yellow (Yellow); Urine Culture Reflex Order NOT NEEDED; Urine Glucose 4+ (Over) (Negative); Urine Ketones NEGATIVE (Negative); Urine Microscopic Reflex YN ORDER UMIC; Urine Nitrite NEGATIVE (Negative); Urine Protein 2+ (Negative); Urine RBC None Seen /HPF (None Seen); Urine Urobilinogen Normal (Normal); Urine WBC <5 /HPF (<5); Urine pH 8.5 (5.0-7.0)
[2024-09-12 07:34] LABS: Absolute Eosinophils 0.1 K/uL (0-0.5); Absolute Lymphocytes (CBC) 0.6 K/uL (0.7-4.9); Absolute Neutrophil 6.9 K/uL (1.8-8.0); Basophils % 0.4 % (0-1.3); Eosinophils % 1.2 % (0-4.4); Hematocrit 24.9 % (36.0-45.0); Hemoglobin 7.6 g/dL (12.0-15.0); Lymphocytes % 7.3 % (15.3-44.8); MCH 26.7 pg (27.0-35.0); MCHC 30.4 g/dL (32.0-36.0); MPV 8.1 fL (7.6-11.3); Monocytes % 11.2 % (3.3-12.3); Neutrophils % 79.9 % (41.7-73.7); Platelets 216 thou/uL (152-406); RBC Red Blood Cell Count 2.83 M/uL (3.86-4.86); Red Cell Distribution Width 23.7 % (12.1-15.2)
[2024-09-12] MEDS ORDERED: MANNITOL 25% 12.5 GM/50 ML VIAL IV PRN (07:52)
[2024-09-12] MEDS ORDERED: NA CHLORIDE 0.9% 1,000 ML IV PRN (07:52)
[2024-09-12 07:56] LABS: Albumin 2.2 g/dL (3.4-5.0); Albumin/Globulin Ratio 0.6 (1.1-1.8); Alkaline Phosphatase 101 U/L (45-117); Anion Gap 9.5 mEq/L (5.0-15.0); BUN Blood Urea Nitrogen 32 mg/dL (7-18); Bicarbonate 29 mEq/L (21-32); Bilirubin Total 0.5 mg/dL (0.2-1.0); Globulin 3.6 g/dL (2.3-3.5); Glomerular Filtration Rate 14 ml/min (=/>90); Glucose Level 144 mg/dL (74-106); HDL Cholesterol 53 mg/dL (40-60); LDL Cholesterol, Calculated 5 mg/dL (<130); LDL Cholesterol,Calc NonReport 5; NT PRO-BNP 75862 pg/mL (<450); Phosphorus 3.3 mg/dL (2.5-4.9); Potassium 3.5 mEq/L (3.5-5.1); Protein, Total 5.8 g/dL (6.4-8.2); Sodium Level 137 mEq/L (136-145); Troponin High Sensitivity 32.5 pg/mL (<58.9)
[2024-09-12 07:58] LABS: ALT/SGPT < 14 U/L (13-56); AST/SGOT < 10 U/L (15-37)
[2024-09-12] MEDS ORDERED: ALBUMIN HUMAN 25% 50 ML IV SCH (08:00)
[2024-09-12] MEDS ORDERED: EPOETIN ALFA 10,000 UNIT/ML VIAL IV SCH (08:00)
--- NOTE | 2024-09-12 08:02 | P.CNS ---
Date of Consult: 09/12/24 Reason for Consult: ESRD Requesting Physician: Jass Gandhi V Chief Complaint: acute on chronic heart failure, anemia, ESRD on HD, hypokalemia History of Present Illness: HPI: 84-year-old woman with a past medical history of ESRD on hemodialysis, A. fib, heart failure, and anemia presented to the ED complaining of shortness of breath. The patient's daughter is present at bedside. The patient states she had dialysis earlier today, and a new dialysis fistula was placed in her left upper extremity as well. The patient also reports she occasionally uses home oxygen, and today she had to use it because she was feeling short of breath. She takes Eliquis and Plavix for atrial fibrillation. She denies stroke history. Patient is wheelchair-bound, but states she has noticed some mild swelling in her bilateral lower extremities. 21:19 This 84 yrs old Female presents to ER via Wheelchair with complaints of dr5 Abnormal Lab Results. 21:19 Onset: The symptoms/episode began/occurred 1 week(s) ago. Patient is a 84-year-old dr5 female coming in with low hemoglobin, lightheadedness, weakness. Patient was in ER last week and was supposed to be admitted and declined admission and went home without blood transfusion. Patient is on dialysis Wednesday and was dialyzed today. Dialysis recommended today that patient come in tomorrow for repeat for fluid overload. Patient reports shortness of breath when walking, lightheadedness when walking, and no energy. Patient denies chest pain with ambulation or at rest Allergies No Known Allergies Allergy (Verified 02/08/24 12:46) Home medications list reviewed: Yes Home Medications: Atorvastatin Calcium 20 mg PO DAILY AT SUPPER 01/11/19 Clopidogrel Bisulfate [Plavix*] 1 tab PO DAILY 10/02/23 Lisinopril [Zestril] 20 mg PO DAILY AT SUPPER 10/02/23 Cholecalciferol (Vitamin D3) [Vitamin D3] 1,000 unit PO DAILY 02/08/24 Cyanocobalamin [Vitamin B-12*] 1,000 mcg PO DAILY 02/08/24 Sitagliptin Phosphate [Januvia] 25 mg PO DAILY 02/08/24 Sucroferric Oxyhydroxide [Velphoro] 500 mg PO AC 02/08/24 Amiodarone HCl [Cordarone*] 200 mg PO BID 05/01/24 - Past Medical/Surgical History Diabetic: Yes -: HTN -: prolapse uterus -: HLD -: AFIB -: ESRD (Dr. Alfred/ Dr. Wilkinson) -: Rt ear sx- child -: cataract surgery bliateral -: ORIF left hip 01/12/19 - Family History Father Medical History: Diabetes, Cancer, Kidney disease Mother Medical History: Cancer Notes: - Social History Smoking Status: Current every day smoker Alcohol use: No CD- Drugs: No Caffeine use: No Place of Residence: Home Review of Systems 10-point ROS is otherwise unremarkable General: Weakness Respiratory: SOB with Excertion Cardiovascular: Edema Physical Examination Temp Pulse Resp BP Pulse Ox 97.8 F 61 16 115/59 L 93 09/12/24 04:00 09/12/24 04:00 09/12/24 04:00 09/12/24 04:00 09/12/24 04:00 General: In no apparent distress, Oriented x3, Cooperative HEENT: Atraumatic Neck: Supple Respiratory: Normal air movement Cardiovascular: Regular rate/rhythm, Edema Gastrointestinal: Soft and benign, Non-distended Musculoskeletal: No clubbing, No contractures Integumentary: No cyanosis Neurological: Normal speech Laboratory Data (last 24 hrs) 09/11/24 09/11/24 09/11/24 20:45 20:45 20:45 WBC 7.90 Hgb 7.0 L Hct 22.5 L Plt Count 220 PT 17.6 H INR 1.59 Sodium 137 Potassium 3.3 L BUN 26 H Creatinine 2.66 H Glucose 224 H Total Bilirubin 0.4 AST < 10 L ALT < 14 Alkaline Phosphatase 127 H Imagings Data: Procedure: Chest Single View HISTORY: Shortness of breath COMPARISON: September 06, 2024 FINDINGS: Mild bilateral interstitial lung opacities [id number] right and small left pleural effusions The heart is mildly to moderately IMPRESSION: CHF Conclusions/Impression: ESRD on HD MWF -Acute dialysis today HTN with CKD/ CHF -Continue Amlodipine and Lisinopril Diastolic CHF, A/C -Acute UF today DM II with CKD -RISS prn Anemia in CKD -Retacrit qHD -PRBC with dialysis today Secondary HyperPTH -Start Ergo in the AM Hospitalist and ER notes reviewed Case reviewed with Dr. Gandhi Thank you kindly for the consultation
[2024-09-12] MEDS: AMLODIPINE 5 MG TAB PO SCH (08:38)
[2024-09-12 10:10] VITALS: O2SAT 95
[2024-09-12 10:14] VITALS: BP 156/67; TEMP 98.3
[2024-09-12 11:19] LABS: Hepatitis B surface AG Interp. Nonreactive (Nonreactive)
[2024-09-12 11:20] LABS: HBsAG Nonreactive Report Report
[2024-09-12 11:27] LABS: Hepatitis B Surface Ab - Quant < 3.10 mIU/mL (<8.0)
[2024-09-12] MEDS ORDERED: ATORVASTATIN 20 MG TAB PO SCH (17:00)
[2024-09-12] MEDS ORDERED: lisinopriL 20 MG TAB PO SCH (17:00)
--- NOTE | 2024-09-12 17:28 | P.SSS ---
Patient History Date of Service: 09/12/24 Reason for admission: acute on chronic heart failure, anemia, ESRD on HD, hypoka lemia History of Present Illness: Luisa is a CKD patient who is on HD. She had low hg and was sent to [facility] by her doctors. SHe had Hg of 6.8 at HD but was higher here. She has mild distress with CHF. She was given a unit of blood during acute hemodialysis and she was stable to [facility] with overall poor prognosis as she has anemia, a fib, cad, and copd. Allergies No Known Allergies Allergy (Verified 02/08/24 12:46) Home medications list reviewed: Yes Home Medications: Atorvastatin Calcium 20 mg PO DAILY AT SUPPER 01/11/19 Clopidogrel Bisulfate [Plavix*] 1 tab PO DAILY 10/02/23 Lisinopril [Zestril] 20 mg PO DAILY AT SUPPER 10/02/23 Cholecalciferol (Vitamin D3) [Vitamin D3] 1,000 unit PO DAILY 02/08/24 Cyanocobalamin [Vitamin B-12*] 1,000 mcg PO DAILY 02/08/24 Sitagliptin Phosphate [Januvia] 25 mg PO DAILY 02/08/24 Sucroferric Oxyhydroxide [Velphoro] 500 mg PO AC 02/08/24 Amiodarone HCl [Cordarone*] 200 mg PO BID 05/01/24 - Past Medical/Surgical History Has patient received pneumonia vaccine in the past: No Diabetic: Yes -: HTN -: prolapse uterus -: HLD -: AFIB -: ESRD (Dr. Alfred/ Dr. Wilkinson) -: Rt ear sx- child -: cataract surgery bliateral -: ORIF left hip 01/12/19 - Family History Father -: Diabetes, Cancer, Kidney disease Mother -: Cancer Notes: - Social History Smoking Status: Current every day smoker Alcohol use: No CD- Drugs: No Caffeine use: No Place of Residence: Home Review of Systems 10-point ROS is otherwise unremarkable General: Weakness Physical Examination - Vital Signs Temperature: 98.3 F Blood Pressure: 156/67 Pulse: 65 Respirations: 16 Pulse Ox (%): 88 - Physical Exam General: In no apparent distress, Mild distress HEENT: Atraumatic, PERRLA, Mucous membr. moist/pink, EOMI, Sclerae nonicteric Neck: Supple, 2+ carotid pulse no bruit, No LAD, Without JVD or thyroid abnormality Respiratory: Clear to auscultation bilaterally, Normal air movement Cardiovascular: Regular rate/rhythm, Normal S1 S2 Gastrointestinal: Normal bowel sounds, No tenderness Musculoskeletal: No tenderness Integumentary: No rashes Neurological: Normal gait, Normal speech, Normal strength at 5/5 x4 extr, Normal tone, Normal affect Lymphatics: No axilla or inguinal lymphadenopathy - Studies Laboratory Data (last 24 hrs) 09/11/24 09/11/24 09/11/24 20:45 20:45 20:45 WBC 7.90 Hgb 7.0 L Hct 22.5 L Plt Count 220 PT 17.6 H INR 1.59 Sodium 137 Potassium 3.3 L BUN 26 H Creatinine 2.66 H Glucose 224 H Total Bilirubin 0.4 AST < 10 L ALT < 14 Alkaline Phosphatase 127 H - Diagnosis (Problem(s)) (1) Chronic anemia Status: Acute Plan: I talked to daughter. She is on Eliquis and plavix. I stopped Eliquis for now. SHe will go to her steel spar operator in a week. I advised that she needs to fu with gi doctor also. SHe is at high risk for any invasive procedures with poor general condition. She is at a risk of stroke also but we can't let her bleed with eliquis. Grand daughter understands. (2) Diastolic dysfunction with acute on chronic heart failure Status: Acute Plan: improved after acute HD. (3) CKD, patient preferred treatment modality in-center hemodialysis Status: Chronic - Disposition Disposition: ROUTINE DISCHARGE
--- NOTE | 2024-09-13 14:53 | EKG ---
Test Date: 2024-09-11 Test Time: 21:00:07 Correctional Substance Abuse Counselor: GRADY MEASUREMENT RESULTS: Intervals: Rate: 66 DE: 174 QRSD: 86 QT: 452 QTc: 473 [place]: P: 126 DE: 174 QRS: -41 T: 139 INTERPRETIVE STATEMENTS: Unusual P axis, possible ectopic atrial rhythm Left axis deviation Anteroseptal infarct, age undetermined Inferior injury pattern ACUTE IL Consider right ventricular involvement in acute inferior infarct Abnormal ECG Compared to ECG 09/06/2024 09:19:09 Sinus bradycardia no longer present Myocardial infarct finding still present Electronically Signed On 09-13-24 14:47:26 CDT by Willie Nogueira
== END 2024-09-12 14:36 | disposition home or self-care (01) | DRG 291 ==
LOC: ER 18:54 → ERHOLD 22:50 → 4TH 23:27
PROVIDERS: ADMIT Internal Medicine; ATTEND Internal Medicine
PROC: 30233N1 Transfusion of Nonautologous Red Blood Cells into Peripheral Vein, Percutaneous Approach (ICD-10-PCS; principal; 2024-09-12)
PROC: 5A1D70Z Performance of Urinary Filtration, Intermittent, Less than 6 Hours Per Day (ICD-10-PCS; 2024-09-12)
DX: I13.2 Hypertensive heart and chronic kidney disease with heart failure and with stage 5 chronic kidney disease, or end stage renal disease (principal); I50.33 Acute on chronic diastolic (congestive) heart failure; N18.6 End stage renal disease; N25.81 Secondary hyperparathyroidism of renal origin; E11.22 Type 2 diabetes mellitus with diabetic chronic kidney disease; D63.1 Anemia in chronic kidney disease; E78.5 Hyperlipidemia, unspecified; E87.6 Hypokalemia; I48.91 Unspecified atrial fibrillation; J44.9 Chronic obstructive pulmonary disease, unspecified; I25.10 Atherosclerotic heart disease of native coronary artery without angina pectoris; F17.210 Nicotine dependence, cigarettes, uncomplicated; Z99.2 Dependence on renal dialysis; Z99.3 Dependence on wheelchair; Z99.81 Dependence on supplemental oxygen; Z79.01 Long term (current) use of anticoagulants; Z79.02 Long term (current) use of antithrombotics/antiplatelets; Z79.899 Other long term (current) drug therapy; Z96.642 Presence of left artificial hip joint
CPT/HCPCS: 36415; 71045; 80053; 80061; 81001; 82947; 83605; 83880; 84100; 84443; 84484; 85025; 85610; 85730; 86706; 86850; 86900; 86901; 86920; 87340; 90935; 93005; 94760; 99285; P9016

== ENCOUNTER 2024-09-22 08:20 | Day surgery (SDC) | payer OTHER ==
[2024-09-22 09:00] LABS: Absolute Basophils 0.1 K/uL (0-0.5); Absolute Eosinophils 0.1 K/uL (0-0.5); Absolute Lymphocytes (CBC) 0.5 K/uL (0.7-4.9); Absolute Monocytes 0.9 K/uL (0.1-1.3); Absolute Neutrophil 7.6 K/uL (1.8-8.0); Basophils % 1.3 % (0-1.3); Eosinophils % 0.9 % (0-4.4); Hematocrit 27.4 % (36.0-45.0); Hemoglobin 8.7 g/dL (12.0-15.0); Lymphocytes % 5.4 % (15.3-44.8); MCH 28.8 pg (27.0-35.0); MCHC 31.9 g/dL (32.0-36.0); MCV 90.2 fL (80-100); MPV 7.6 fL (7.6-11.3); Monocytes % 9.4 % (3.3-12.3); Nucleated Red Blood Cells % 0.2 % (0-0); Platelets 279 thou/uL (152-406); RBC Red Blood Cell Count 3.04 M/uL (3.86-4.86)
[2024-09-22] MEDS ORDERED: ALBUTEROL 2.5 MG/3 ML NEB SOL ONE (09:09)
[2024-09-22] MEDS: NA CHLORIDE 0.9% 500 ML ONE (09:25)
[2024-09-22] MEDS ORDERED: EPINEPHRINE 1 MG/ML VIAL ONE (10:51)
[2024-09-22] MEDS ORDERED: ONDANSETRON 4 MG/2 ML VIAL ONE (11:11)
[2024-09-22] MEDS ORDERED: LIDOCAINE 1% MPF 5 ML VIAL ONE (11:11)
[2024-09-22] MEDS ORDERED: propofoL 200 MG/20 ML VIAL IV ONE (11:11)
[2024-09-22] MEDS ORDERED: dexAMETHasone 10 MG/ML VIAL ONE (11:11)
[2024-09-22] MEDS ORDERED: FENTANYL CITR 100 MCG/2 ML ONE (11:12)
[2024-09-22] MEDS ORDERED: ROCURONIUM 50 MG/5 ML VIAL IV ONE (11:15)
[2024-09-22] MEDS: CEFAZOLIN SODIUM 1 GM/VIAL ONE (11:36)
[2024-09-22] MEDS: LIDOCAINE HCL/EPINEPHRINE 20 ML MDV ONE (11:36)
[2024-09-22] MEDS ORDERED: EPHEDRINE SULF 50 MG/ML VIAL ONE (12:10)
[2024-09-22] MEDS: BUPIVACAINE 0.25% PF 10 ML VIAL ONE (12:49)
[2024-09-22] MEDS ORDERED: GLYCOPYRROLATE 0.2 MG/ML SYR ONE (13:15)
[2024-09-22] MEDS ORDERED: dilTIAZem HCL 25 MG/5 ML VIAL IV ONE (14:15)
--- NOTE | 2024-09-22 14:51 | P.OP ---
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 Secondary procedure: Dermal autograft from prearicular face to nasal cavity Anesthesia: general Estimated blood loss: 10ml Specimen: left nasal septum, frozen and new deep margins (permanent) Findings: negative peripheral margins with uncertain deep margins Operative Technique: The patient was brought to the operating room and placed under general anesthesia via oral endotracheal tube. She was positioned supinely. The face especially the nasal cavity was examined and the previously biopsied lesion on the left anterior septum was noted. The area around the lesion was injected with 1% lidocaine with epinephrine. The left face including the preauricular area was inspected and felt to be a good option for skin graft and this area was likewise injected with 1% lidocaine with epinephrine. The face including the anterior nasal cavity was prepped with Betadine and draped in a sterile fashion. Using a headlight and nasal speculum the gross borders of the lesion were noted and a 15 blade scalpel was used to incise several millimeters posterior into the nasal cavity and through the nasal septal mucosa. The incision was carried out anteriorly. The caudal most aspect of the lesion was approaching the skin of the columella and approximately half of the skin of the columella was taken as part of the specimen. The incision was carried up superiorly and into the left soft tissue triangle and then angled back into the nasal cavity. The needlepoint Bovie was used to incise through the soft tissues and medial portion of the left lower lateral cartilage was taken as part of the specimen due to its close approximation and possible involvement with the tumor. Section was taken back and the caudal aspect of the cartilaginous septum was identified. A Caty elevator was used elevate the soft tissue from the septal cartilage until the lesion was completely removed. Suture was placed at 12:00 coinciding with the mid to lower portion of the columella and the specimen was sent to pathology for frozen section analysis. The pathologist confirmed that the peripheral margins appeared negative but there were some discussion regarding the deep margin particularly that which was directly under the main portion of the specimen. Some additional soft tissue was elevated from around and just deep to the soft tissue triangle. Additional tissue was collected which was difficult to determine whether this was soft tissue, tumor, or damaged septal cartilage. The patient had a fall resulting in a nasal fracture and local trauma about 3 to 4 months ago. There was concern that the injury may have resulted in some damage which complicated interpretation of visualization of the surgical field. These additional specimens were sent without orientation to the pathologist for permanent section only. The rationale was that if these additional deep specimens were negative for tumor then no additional treatment is necessary. If these additional specimens demonstrate squamous cell carcinoma then can discuss treatment options depending on the clinical progression and presentation postoperatively. Additional treatment options may include observation versus referral for radiation treatment. The wound was measuring approximately 2 x 2-1/2 cm and encompassed the skin of the columella, the soft tissue triangle on the left and a significant portion of the anterior mucosal left septum. A full-thickness skin graft was collected from the left preauricular skin crease and positioned over the defect. It was secured using a running chromic suture. The posterior aspect of the left was difficult to approximate due to friability of the mucosa and the location laying approximately 2-1/2 cm into the nasal cavity. The superior anterior and inf erior borders appeared well-approximated. Additional through and through quilting suture was applied through the skin graft to the right nasal mucosa. A Xeroform dressing was used to form a bolster which was placed within the left nostril and secured with 3 external sutures. Due to the location the sutures were passed through the dressing itself to avoid posterior displacement. The skin graft donor site was closed in a layered fashion using Vicryl and 5-0 fast absorbing gut. The conclusion of the procedure plain Marcaine without epinephrine was injected at the base of the columella, the nasal tip and around the left infraorbital nerve to aid in postoperative pain control. Approximately 2 additional milliliters were injected around the skin graft donor site. The procedure was concluded and the patient was returned to anesthesia for awakening extubation in the operating room which proceeded without difficulty. Upon arrival in the recovery room, the patient was noted to be significantly tachycardic. During the course of her procedure her heart rate was generally in the 50s to 60s. Ever, the patient was noted to have a heart rate of approximately 130 and an EKG confirmed atrial fibrillation with RVR. The patient was treated by the anesthesiology and had relatively rapid movement and her heart rate to approximately 100. When the patient was reassessed personally approximately 15 minutes later, the heart rate was back at 67 and appeared regular. Patient will be observed by the nursing and anesthesiology staff as she continues to emerge and if her heart rate and cardiac rhythm appear stable she can be discharged to resume her amiodarone, Plavix, and Eliquis for a known history of intermittent atrial fibrillation. The patient's family was instructed to contact the patient's personal chemistry quality control technician if she had any additional concerns. The patient does not appear stable, the hospital staff will contact me for further disposition. Complications: None Fluids & blood products: see anesthsia records Transferred to: Recovery Room Condition: Fair (Patient was noted to have AFwRVR in PACU and treated with rate control medications)
--- NOTE | 2024-09-22 15:07 | EKG ---
Test Date: 2024-09-22 Test Time: 15:15:36 Foundry Operator: KATRINA MEASUREMENT RESULTS: Intervals: Rate: 136 CT: QRSD: 104 QT: 346 QTc: 520 [place]: P: CT: QRS: -43 T: 102 INTERPRETIVE STATEMENTS: Atrial fibrillation Left axis deviation Cannot rule out Anterior infarct, age undetermined Abnormal ECG Compared to ECG 09/11/2024 21:00:07 No significant changes Electronically Signed On 09-22-24 15:06:24 INSECTICIDE SPRAYER by Yuan Mathis
[2024-09-22 16:08] VITALS: TEMP 98.6
[2024-09-22 16:11] VITALS: BP 209/41; O2SAT 91
--- NOTE | 2024-09-25 12:08 | EKG ---
Test Date: 2024-09-22 Test Time: 15:20:45 Unattended Ground Sensor Specialist: KATRINA MEASUREMENT RESULTS: Intervals: Rate: 109 [place]: QRSD: 94 QT: 376 QTc: 506 [place]: P: [place]: QRS: -47 T: 106 INTERPRETIVE STATEMENTS: Atrial fibrillation with rapid ventricular response Left anterior fascicular block Septal infarct, age undetermined Abnormal ECG Compared to ECG 09/22/2024 15:15:36 Left anterior fascicular block now present Left-axis deviation no longer present Myocardial infarct finding still present Electronically Signed On 09-25-24 12:06:29 SCREW MACHINE HAND by Yuan Mathis
== END 2024-09-22 16:05 | disposition home or self-care (01) ==
LOC: OR 08:20
PROVIDERS: ATTEND Otolaryngology
PROC: 09UM87Z Supplement Nasal Septum with Autologous Tissue Substitute, Via Natural or Artificial Opening Endoscopic (ICD-10-PCS; 2024-09-22)
PROC: 0HB1XZZ Excision of Face Skin, External Approach (ICD-10-PCS; 2024-09-22)
PROC: 09BK8ZZ Excision of Nasal Mucosa and Soft Tissue, Via Natural or Artificial Opening Endoscopic (ICD-10-PCS; principal; 2024-09-22 09:45)
DX: C30.0 Malignant neoplasm of nasal cavity (principal); D64.9 Anemia, unspecified; I48.91 Unspecified atrial fibrillation; E11.9 Type 2 diabetes mellitus without complications; N18.4 Chronic kidney disease, stage 4 (severe); Z99.2 Dependence on renal dialysis
CPT/HCPCS: 93005 ×2; 85025; 80048; 36415; 82947; 88331; 88332; 88305 ×2; 30117; 15135; 15120; J2704; J2003; J7613; J3010; J1100; J2405; J7040; J0690; J0171

== ENCOUNTER 2024-09-25 16:25 | Inpatient (IN) | payer OTHER ==
[2024-09-25] MEDS ORDERED: NA CHLORIDE 0.9% 1,000 ML ONE (17:01)
[2024-09-25] MEDS ORDERED: CEFTRIAXONE 1000 MG/VIAL ONE (17:01)
[2024-09-25 17:10] LABS: Absolute Basophils 0.1 K/uL (0-0.5); Absolute Eosinophils 0.1 K/uL (0-0.5); Absolute Lymphocytes (CBC) 0.4 K/uL (0.7-4.9); Absolute Monocytes 0.9 K/uL (0.1-1.3); Basophils % 0.4 % (0-1.3); Eosinophils % 0.7 % (0-4.4); Hematocrit 34.3 % (36.0-45.0); Hemoglobin 10.7 g/dL (12.0-15.0); Lymphocytes % 2.8 % (15.3-44.8); MCH 28.4 pg (27.0-35.0); MCHC 31.3 g/dL (32.0-36.0); MCV 90.6 fL (80-100); MPV 7.5 fL (7.6-11.3); Monocytes % 7.2 % (3.3-12.3); Neutrophils % 88.9 % (41.7-73.7); Nucleated Red Blood Cells % 0.3 % (0-0); Platelets 283 thou/uL (152-406); RBC Red Blood Cell Count 3.79 M/uL (3.86-4.86); Red Cell Distribution Width 20.3 % (12.1-15.2)
[2024-09-25 17:12] LABS: PT Prothrombin Time 14.1 SECONDS (9.4-12.5); Protime INR 1.27
[2024-09-25 17:33] LABS: AST/SGOT 13 U/L (15-37); Albumin 2.7 g/dL (3.4-5.0); Albumin/Globulin Ratio 0.6 (1.1-1.8); Alkaline Phosphatase 123 U/L (45-117); Anion Gap 12.3 mEq/L (5.0-15.0); BUN Blood Urea Nitrogen 11 mg/dL (7-18); Bicarbonate 28 mEq/L (21-32); Bilirubin Direct 0.3 mg/dL (0-0.2); Bilirubin Indirect, Calculated 0.4 mg/dL (0.2-0.8); Bilirubin Total 0.7 mg/dL (0.2-1.0); Globulin 4.9 g/dL (2.3-3.5); Glomerular Filtration Rate 23 ml/min (=/>90); Glucose Level 149 mg/dL (74-106); Lipase 12 U/L (13-75); Magnesium 2.1 mg/dL (1.6-2.4); Potassium 3.3 mEq/L (3.5-5.1); Protein, Total 7.6 g/dL (6.4-8.2); Sodium Level 135 mEq/L (136-145); Troponin High Sensitivity 57.5 pg/mL (<58.9)
[2024-09-25 17:45] LABS: NT PRO-BNP 138411 pg/mL (<450)
[2024-09-25 17:46] LABS: ALT/SGPT < 14 U/L (13-56)
[2024-09-25 17:51] LABS: Specific Gravity 1.014 (1.005-1.030); Sqamous Epithelial <5 /HPF (None Seen); Urine Bacteria None Seen /HPF (<20); Urine Bilirubin NEGATIVE (Negative); Urine Blood Negative (Negative); Urine Clarity Clear (Clear); Urine Color Light-Yellow (Yellow); Urine Culture Reflex Order NOT NEEDED; Urine Glucose 4+ (Over) (Negative); Urine Ketones 1+ (Negative); Urine Microscopic Reflex YN ORDER UMIC; Urine Nitrite NEGATIVE (Negative); Urine Protein 3+ (Negative); Urine RBC <5 /HPF (None Seen); Urine Urobilinogen Normal (Normal); Urine WBC <5 /HPF (<5)
--- NOTE | 2024-09-25 18:07 | ER ---
Nurse's Notes [facility] Name: Luisa Sanchez Age: 84 yrs Sex: Female : 1940 Arrival Date: 09/25/2024 Time: 16:25 Bed 3 Private MD: Diagnosis: Dependence on renal dialysis;Chronic combined systolic (congestive) and diastolic (congestive) heart failure-VOLUME OVERLOAD;Pleural effusion in other conditions classified elsewhere-RIGHT;Hypokalemia;Tobacco abuse counseling;Tobacco use;COPD/ Chronic obstructive pulmonary disease with (acute) exacerbation;Dyspnea Presentation: 09/25 16:38 Chief complaint: Patient's son or daughter states: SOB with exertion, nausea, weak, ll1 confused started today. Has L nare sewn closed from CA removal. No known fever. Dialysis told daughter her oxygenation was 90-91% today during dialysis. Coronavirus screen: Client denies travel out of the [place] in the last 14 days. congestion, difficulty breathing, fatigue, muscle pain, nausea, shortness of breath, Client presents with at least one sign or symptom that may indicate coronavirus-19. Standard/surgical mask placed on the client. Ebola Screen: Patient denies travel to an Ebola-affected area in the 21 days before illness onset. Initial Sepsis Screen: Does the patient meet any 2 criteria? No. Patient's initial sepsis screen is negative. Does the patient have a suspected source of infection? No. Patient's initial sepsis screen is negative. Risk Assessment: Do you want to hurt yourself or someone else? Patient reports no desire to harm self or others. Onset of symptoms was September 25, 2024. 16:38 Method Of Arrival: Wheelchair ll1 16:38 Acuity: ELIEZER 2 ll1 Triage Assessment: 16:35 General: Appears distressed, uncomfortable, Behavior is cooperative, appropriate for ll1 age, listless. General: Reports fatigue for. Pain: Denies pain. EENT: Reports nasal congestion L nare sutured closed. Neuro: Reports weakness. Neuro: Reports confusion. Respiratory: Parent/caregiver reports the patient having shortness of breath on exertion labored breathing. GI: Reports nausea. Historical: - Allergies: 16:41 No Known Allergies; ll1 - PMHx: 16:41 Anemia; Diabetes - NIDDM; Dialysis (kidney disease); Hyperlipidemia; Hypertension; ll1 kidney disease; - PSHx: 16:41 diaylsis fistula to left upper arm; foot; hip; Skin grafting; Stented artery; nasal CA ll1 removed (Stented artery); - Immunization history:: Adult Immunizations up to date. - Infectious Disease History:: Denies. - Social history:: Smoking status: Patient reports the use of cigarette tobacco products, smokes one pack cigarettes per day. Screenin:02 [facility] ED Fall Risk Assessment (Adult) History of falling in the last 3 months, mb9 including since admission No falls in past 3 months (0 pts) Confusion or Disorientation Yes (5 pts) Intoxicated or Sedated No (0 pts) Impaired Gait Yes (1 pt) Mobility Assist Device Used Yes (1 pt) Altered Elimination No (0 pt) Score/Fall Risk Level 3 or more points = High Risk Oriented to surroundings, Maintained a safe environment, Educated pt \T\ family on fall prevention, incl call for assistance when getting out of bed, Assessed \T\ reinforced patient's understanding of fall precautions, Provided non-skid footwear. Abuse screen: Denies threats or abuse. Nutritional screening: No deficits noted. Tuberculosis screening: No symptoms or risk factors identified. Assessment: 17:02 General: Appears ill, Behavior is cooperative. Pain: Denies pain. Neuro: Level of mb9 Consciousness is confused, Oriented to none. Cardiovascular: Heart tones S1 S2 present Patient's skin is warm and dry. Respiratory: Airway is patent Respiratory effort is labored, with nasal flaring, Respiratory pattern is tachypnea snoring Breath sounds are clear bilaterally. GI: Abdomen is flat, non-distended. : No signs and/or symptoms were reported regarding the genitourinary system. EENT: Nares sutures noted to left nare. Nare sutured shut. Derm: Skin is fragile, is thin, Skin is dry, Skin is pale, Skin temperature is cool. Musculoskeletal: Range of motion: intact in all extremities. 18:05 Reassessment: RT notified to place BiPAP. mb9 18:29 Reassessment: Patient appears in no apparent distress at this time. Patient and/or mb9 family updated on plan of care and expected duration. Pain level reassessed. Respiratory: Airway is patent Respiratory effort is even, unlabored, Respiratory pattern is regular, symmetrical. 18:29 Respiratory: Patient placed on BiPAP: Inspiratory Pressure: 12 Expiratory (EPAP) mb9 Pressure: 5 FiO2%: 30 Respiratory Rate: 14. Vital Signs: 16:38 BP 173 / 63; Pulse 76; Resp 24; Pulse Ox 81% on R/A; Weight 54.43 kg; Height 5 ft. 4 ll1 in. ; 16:38 Resp 20; Temp 97.1(TE); Pulse Ox 100% on 10 lpm Non-rebreather mask; ll1 17:40 BP 168 / 60; Pulse 78; Resp 16; Pulse Ox 100% on Non-rebreather mask; mb9 18:28 BP 176 / 54; Pulse 78; Resp 18; Pulse Ox 96% on 30 lpm BiPAP; mb9 16:38 Body Mass Index 20.60 (54.43 kg, 162.56 cm) 1 ED Course: 16:26 Patient arrived in ED. im 16:31 Isra Spears MD is Attending Physician. twyla 16:31 Arm band placed on Patient placed in an exam room, on a stretcher. 1 16:32 Shannen Salazar RN is Primary Nurse. mb9 16:41 Triage completed. ll1 17:01 Blood Culture Adult (2) Sent. mb9 17:01 Lipase Sent. mb9 17:01 Initial lab(s) drawn, by ca, sent to lab. EKG done, by ED staff, reviewed by Isra Spears MD. Inserted saline lock: 22 gauge in right antecubital area, using aseptic technique. Blood collected. Flushed with 10 mL NS. 17:02 Bed in low position. Call light in reach. Side rails up X 1. Provided Education on: petrona press call light if needing anything. Client placed on continuous cardiac and pulse oximetry monitoring. NIBP monitoring applied. machine stacker on. 17:04 XRAY Chest (1 view) In Process Unspecified. EDMS 17:40 Straight cath inserted, using sterile technique, 14 Fr. Specimen obtained. Returned mb9 clear yellow urine. Patient tolerated well. 17:41 No provider procedures requiring assistance completed. mb9 17:42 Urinalysis w/ reflexes Sent. mb9 17:42 Urine Culture Sent. mb9 18:04 Jass Gandhi MD is Hospitalizing Provider. [facility] 18:06 CT Head C Spine In Process Unspecified. EDMS 18:07 CT Chest Abdomen Pelvis W/O Contrast In Process Unspecified. EDMS 18:30 Patient admitted, IV remains in place. mb9 Administered Medications: 17:40 Not Given (Physician Discretion): ns 0.9% 1000 ml IV at 1 bolus Per protocol; to be mb9 given as a bolus over 60 minutes 17:40 Drug: Rocephin IV 1 grams IV at per protocol once; Given slow IV push per pharmacy mb9 instructions Route: IV; Rate: per protocol; Site: right antecubital; 18:13 Follow up: Response: No adverse reaction; IV Status: Completed infusion mb9 18:28 Drug: MethylPrednisoLONE IVP 125 mg IVP once Route: IVP; Site: right antecubital; mb9 22:57 Follow up: Response: No adverse reaction bm8 18:28 Drug: Levalbuterol Inhalation 2.5 mg Inhalation once Route: Inhalation; mb9 22:57 Follow up: Response: No adverse reaction bm8 18:28 Drug: Ipratropium Inhalation Aerosol 0.5 mg Inhalation once Route: Inhalation; mb9 22:57 Follow up: Response: No adverse reaction bm8 Medication: 17:02 VIS not applicable for this client. mb9 Outcome: 18:07 Decision to Hospitalize by Provider. twyla 22:56 Admitted to Med/surg accompanied by tech, via stretcher, room 213, with chart, bm8 22:56 Condition: stable 22:56 Instructed on follow up and referral plans. the need for admit, Demonstrated understanding of instructions, follow-up care, 22:57 Patient left the ED. bm8 Signatures: Dispatcher [employer] Isra Mcpherson MD MD cha Lewis, Lynsay, RN RN ll1 Shannen Salazar RN RN mb9 Shameka Gaytan Brad, RN RN bm8 Corrections: (The following items were deleted from the chart) 16:52 16:38 Resp 20bpm; Pulse Ox 100% 02 10lpm Non-rebreather mask; ll1 ll1 17:41 17:02 Respiratory: Airway is patent Respiratory effort is even, unlabored, Respiratory mb9 pattern is regular, symmetrical, Breath sounds are clear bilaterally. mb9
--- NOTE | 2024-09-25 18:07 | EDPHYS ---
Physician Documentation [facility] Name: Luisa Sanchez Age: 84 yrs Sex: Female : 1940 Arrival Date: 09/25/2024 Time: 16:25 Bed 3 Private MD: ED Physician Isra Spears HPI: 09/25 17:56 This 84 yrs old Female presents to ER via Wheelchair with complaints of twyla Altered Mental Status. 17:56 The patient presents with confusion, decreased mental status. Onset: The twyla symptoms/episode began/occurred today. Possible causes: low blood sugar, sepsis. Associated signs and symptoms: Pertinent positives: confusion, lightheadedness, nausea, shortness of breath. Current symptoms: In the emergency department the patient's symptoms are unchanged from the initial presentation, despite home interventions. Patient's baseline: Neuro: alert and fully oriented. The patient has experienced similar episodes in the past, several times. Historical: - Allergies: 16:41 No Known Allergies; ll1 - PMHx: 16:41 Anemia; Diabetes - NIDDM; Dialysis (kidney disease); Hyperlipidemia; Hypertension; ll1 kidney disease; - PSHx: 16:41 diaylsis fistula to left upper arm; foot; hip; Skin grafting; Stented artery; nasal CA ll1 removed (Stented artery); - Immunization history:: Adult Immunizations up to date. - Infectious Disease History:: Denies. - Social history:: Smoking status: Patient reports the use of cigarette tobacco products, smokes one pack cigarettes per day. ROS: 17:57 Eyes: Negative for injury, pain, redness, and discharge, Back: Negative for injury and twyla pain, 17:57 Constitutional: Positive for poor PO intake, 17:57 Cardiovascular: Negative for chest pain, 17:57 Respiratory: Positive for cough, orthopnea, shortness of breath, at rest. wheezing, 17:57 Abdomen/GI: Negative for abdominal pain, 17:57 MS/extremity: Positive for swelling, 17:57 Neuro: Positive for weakness, Negative for altered mental status, seizure activity, speech changes, Exam: 17:57 Head/Face: Normocephalic, atraumatic. Eyes: Pupils equal round and reactive to light, twyla extra-ocular motions intact. Lids and lashes normal. Conjunctiva and sclera are non-icteric and not injected. Cornea within normal limits. Periorbital areas with no swelling, redness, or edema. ENT: Nares patent. No nasal discharge, no septal abnormalities noted. Tympanic membranes are normal and external auditory canals are clear. Oropharynx with no redness, swelling, or masses, exudates, or evidence of obstruction, uvula midline. Mucous membranes moist. Neck: Trachea midline, no thyromegaly or masses palpated, and no cervical lymphadenopathy. Supple, full range of motion without nuchal rigidity, or vertebral point tenderness. No Meningismus. Chest/axilla: Normal chest wall appearance and motion. Nontender with no deformity. No lesions are appreciated. Cardiovascular: Regular rate and rhythm with a normal S1 and S2. No gallops, murmurs, or rubs. Normal PMI, no JVD. No pulse deficits. Abdomen/GI: Soft, non-tender, with normal bowel sounds. No distension or tympany. No guarding or rebound. No evidence of tenderness throughout. Back: No spinal tenderness. No costovertebral tenderness. Full range of motion. Skin: Warm, dry with normal turgor. Normal color with no rashes, no lesions, and no evidence of cellulitis. Neuro: Awake and alert, GCS 15, oriented to person, place, time, and situation. Cranial nerves II-XII grossly intact. Motor strength 5/5 in all extremities. Sensory grossly intact. Cerebellar exam normal. Normal gait. Psych: Awake, alert, with orientation to person, place and time. Behavior, mood, and affect are within normal limits. 17:57 Constitutional: The patient appears obviously ill, 17:57 ECG was reviewed by the Attending Physician. Vital Signs: 16:38 BP 173 / 63; Pulse 76; Resp 24; Pulse Ox 81% on R/A; Weight 54.43 kg; Height 5 ft. 4 ll1 in. ; 16:38 Resp 20; Temp 97.1(TE); Pulse Ox 100% on 10 lpm Non-rebreather mask; ll1 17:40 BP 168 / 60; Pulse 78; Resp 16; Pulse Ox 100% on Non-rebreather mask; mb9 18:28 BP 176 / 54; Pulse 78; Resp 18; Pulse Ox 96% on 30 lpm BiPAP; mb9 16:38 Body Mass Index 20.60 (54.43 kg, 162.56 cm) ll1 MDM: 16:31 Medical Screening Exam initiated [facility] 18:01 Differential diagnosis: Bronchitis CHF exacerbation, Chronic Obstructive Pulmonary twyla Disease Myocardial Infarction pneumonia, pulmonary edema, reactive airway disease, Sepsis Unstable Angina. Antibiotic administration: ROCEPHIN. Differential Diagnosis: CVA, electrolyte abnormality, hypoglycemia, intracranial bleed, pneumonia, seizure, sepsis, TIA, UTI, volume depletion. Differential Diagnosis: Obstructed Airway Bronchitis Influenza Upper Respiratory Infection Pharyngitis Asthma Exacerbation Viral Syndrome Pneumonia. Immunization status: Pneumococcal vaccine: within last 5 years. Influenza vaccine: Data reviewed: vital signs, nurses notes, EMS record, lab test result(s), EKG, radiologic studies, CT scan, plain films. Consideration of Admission/Observation Patient was admitted/placed on observation. Escalation of care including admission/observation considered. I considered the following discharge prescriptions or medication management in the emergency department Medications were administered in the Emergency Department. See MAR. Independent interpretation of the following test(s) in the Emergency Department EKG: See my EKG interpretation above. Test considered but Not performed: Ultrasound NO 2 D ECHO. 09/25 16:33 Order name: Basic Metabolic Panel; Complete Time: 17:53 [facility] 09/25 16:33 Order name: CBC with Diff [facility] 09/25 16:33 Order name: LFT's; Complete Time: 17:53 [facility] 09/25 16:33 Order name: Magnesium; Complete Time: 17:53 [facility] 09/25 16:33 Order name: NT PRO-BNP; Complete Time: 17:53 [facility] 09/25 16:33 Order name: PT-INR; Complete Time: 17:22 [facility] 09/25 16:33 Order name: Troponin HS; Complete Time: 17:53 [facility] 09/25 16:33 Order name: Lipase; Complete Time: 17:53 [facility] 09/25 16:33 Order name: Blood Culture Adult (2) [facility] 09/25 16:33 Order name: Lactate w/ 2H reflex if indic.; Complete Time: 17:53 [facility] 09/25 16:33 Order name: Urinalysis w/ reflexes; Complete Time: 17:53 [facility] 09/25 16:33 Order name: Urine Culture [facility] 09/25 16:46 Order name: Glucose, Ancillary Testing; Complete Time: 17:22 [facility] 09/25 18:09 Order name: CBC Smear Scan [facility] 09/25 16:33 Order name: XRAY Chest (1 view) [facility] 09/25 16:33 Order name: CT Head C Spine [facility] 09/25 16:33 Order name: CT Chest Abdomen Pelvis W/O Contrast [facility] 09/25 17:55 Order name: BIPAP [facility] 09/25 16:33 Order name: EKG; Complete Time: 16:33 [facility] 09/25 18:16 Order name: CONS Physician Consult [facility] 09/25 16:33 Order name: Cardiac monitoring; Complete Time: 17: [facility] 09/25 16:33 Order name: EKG - Nurse/Tech; Complete Time: 17:01 [facility] 09/25 16:33 Order name: IV Saline Lock; Complete Time: 17: [facility] 09/25 16:33 Order name: Labs collected and sent; Complete Time: 17: [facility] 09/25 16:33 Order name: O2 Per Protocol; Complete Time: 17: [facility] 09/25 16:33 Order name: O2 Sat Monitoring; Complete Time: 17: [facility] 09/25 17:01 Order name: Straight Cath - Urine; Complete Time: 17:40 mb9 EC:57 Rate is 77 beats/min. Rhythm is regular. QRS [place] is Normal. [place] interval is prolonged twyla at 212 msec. QRS interval is normal. QT interval is prolonged at 527 msec. No Q waves. T waves are Normal. No ST changes noted. Clinical impression: Abnormal EKG without significant change and No evidence of ischemia. Administered Medications: 17:40 Not Given (Physician Discretion): ns 0.9% 1000 ml IV at 1 bolus Per protocol; to be mb9 given as a bolus over 60 minutes 17:40 Drug: Rocephin IV 1 grams IV at per protocol once; Given slow IV push per pharmacy mb9 instructions Route: IV; Rate: per protocol; Site: right antecubital; 18:13 Follow up: Response: No adverse reaction; IV Status: Completed infusion mb9 18:28 Drug: MethylPrednisoLONE IVP 125 mg IVP once Route: IVP; Site: right antecubital; mb9 22:57 Follow up: Response: No adverse reaction bm8 18:28 Drug: Levalbuterol Inhalation 2.5 mg Inhalation once Route: Inhalation; mb9 22:57 Follow up: Response: No adverse reaction bm8 18:28 Drug: Ipratropium Inhalation Aerosol 0.5 mg Inhalation once Route: Inhalation; mb9 22:57 Follow up: Response: No adverse reaction bm8 Disposition: 18:01 Critical Care:. twyla Disposition Summary: 09/25/24 18:07 Hospitalization Ordered Notes: Hospitalization Status: Inpatient Admission twyla Provider: Jass Gandhi cha Location: Telemetry/MedSurg (Inpatient) twyla Condition: Fair twyla Problem: new twyla Symptoms: have worsened twyla Bed/Room Type: Standard twyla Room Assignment: 413(09/25/24 19:44) rv1 Diagnosis - Dependence on renal dialysis twyla - Chronic combined systolic (congestive) and diastolic (congestive) heart failure - twyla VOLUME OVERLOAD - Pleural effusion in other conditions classified elsewhere - RIGHT twyla - Hypokalemia twyla - Tobacco abuse counseling twyla - Tobacco use twyla - COPD/ Chronic obstructive pulmonary disease with (acute) exacerbation twyla - Dyspnea twyla Forms: - Medication Reconciliation Form twyla - SBAR form twyla - Leadership Thank You Letter twyla Critical care time excluding procedures: 18:01 Critical care time: Bedside Care: 25 minutes, Consultation: 10 minutes, Family twyla Intervention: 10 minutes. Total time: 45 minutes Signatures: Dispatcher [employer] EDIsra Mcpherson MD MD cha Lewis, Lynsay, RN RN ll1 Marie, Shannen Navas RN RN mb9 Wendy Witt rv1 Checo Rey RN bm8 Corrections: (The following items were deleted from the chart) 16:34 16:33 BASIC METABOLIC PANEL+C.LAB.BRZ ordered. EDMS EDMS 16:34 16:33 CBC+H.LAB.BRZ ordered. EDMS EDMS 16:34 16:33 HEPATIC FUNCTION+C.LAB.BRZ ordered. EDMS EDMS 16:34 16:33 MAGNESIUM+C.LAB.BRZ ordered. EDMS EDMS 16:34 16:33 PROBNP+C.LAB.BRZ ordered. EDMS EDMS 16:34 16:33 PROTIME (+INR)+COAG.LAB.BRZ ordered. EDMS EDMS 16:34 16:33 Troponin High Sensitivity+C.LAB.BRZ ordered. EDMS EDMS 16:34 16:33 LIPASE+C.LAB.BRZ ordered. EDMS EDMS 16:34 16:33 BLOOD CULTURE*+BA.LAB.BRZ ordered. EDMS EDMS 16:34 16:33 LACTATE+C.LAB.BRZ ordered. EDMS EDMS 16:34 16:33 Urinalysis+U.LAB.BRZ ordered. EDMS EDMS 16:34 16:33 Urine Culture+BA.LAB.BRZ ordered. EDMS EDMS 19:44 18:07 [facility] rv1
[2024-09-25 18:09] LABS: Anisocytosis 1+; Blood Morphology Comment NOTED (NOT SEEN); Ovalocytes SLIGHT; Platelet Estimate ADEQ; Poikilocytosis SLIGHT; Polychromasia 1+; White Blood Cell Scan OK (OK)
--- NOTE | 2024-09-25 18:12 | RAD REPORT ---
EXAMINATION: ONE VIEW CHEST XR CLINICAL INDICATION: Female, 84 years old.,COUGH TECHNIQUE: Frontal chest projection is submitted. Examination is limited by patient positioning and t echnique. COMPARISON: 09/11/2024 FINDINGS: Progressive central interstitial prominence and fluffy opacities. Persistent right mhchu-[id number] pleural effusion. No pneumothorax or sizable effusion. The heart is normal in size. Mediastinal contours are unremarkable. IMPRESSION: Progressive findings as above, concerning for pulmonary edema.
[2024-09-25] MEDS ORDERED: METHYLPREDNISOLONE 125 MG INJ ONE (18:16)
[2024-09-25] MEDS ORDERED: LEVALBUTEROL 1.25 MG/3 ML NEB ONE (18:16)
[2024-09-25] MEDS ORDERED: IPRATROPIUM BROM 0.5MG/2.5ML ONE (18:16)
--- NOTE | 2024-09-25 18:41 | RAD REPORT ---
EXAM: CT brain without contrast HISTORY: MENTAL STATUS CHANGE COMPARISON: 06/24/2024 TECHNIQUE: Multiple contiguous axial images were obtained and a CT of the brain without contrast. Sag ittal and coronal reformats were performed. FINDINGS: No evidence of hydrocephalus, intracranial hemorrhage, or extra-axial fluid collection. Mild brain atrophy with mild periventricular and deep white matter chronic microvascular ischemic ch anges present. The calvarium is intact. The visualized paranasal sinuses are grossly clear. Sequelae of right canal wall down mastoidectomy. IMPRESSION: No evidence of acute intracranial abnormality. EXAM: CT of the cervical spine without contrast HISTORY: MENTAL STATUS CHANGE COMPARISON: None TECHNIQUE: Multiple contiguous axial images were obtained in a CT of the cervical spine without contr ast. Sagittal and coronal reformats were performed. FINDINGS: The vertebral bodies demonstrate normal height and alignment. No evidence of acute fracture or subluxation.. Stable multilevel degenerative changes are present. No prevertebral soft tissue swelling is seen. The posterior facets are well aligned. Normal alignment of the skull base with the cervical spine is seen. Patchy alveolar opacities and prominence of the interlobular septi noted throughout the included uppe r lungs. Moderate layering right pleural effusion. IMPRESSION: No evidence of acute osseous abnormality of the cervical spine. Bilateral upper lung abnormalities as above, separately evaluated on dedicated CT of the chest of the same day.
--- NOTE | 2024-09-25 18:47 | RAD REPORT ---
EXAM: CT CHEST, ABDOMEN AND PELVIS WITHOUT CONTRAST CLINICAL INDICATION: Female, 84 years old. [facility] MAIN PAIN Bed Name: 3 TECHNIQUE: CT chest, abdomen and pelvis was performed, without IV contrast, as per department protoco l. Axial, sagittal and coronal reconstructions were obtained. One or more of the following dose reduction techniques were used: Automated exposure control, adjustment of the mA and/or kV according to the patient size, and/or iterative reconstruction. Unless otherwise specified, incidental findings do not require dedicated imaging follow-up. COMPARISON: 12/08/2023 FINDINGS: The lack of intravenous contrast limits the sensitivity of this exam for evaluation of solid visceral organs, vascular structures, and retroperitoneum. Chest: LOWER NECK/CHEST WALL: Visualized thyroid gland and soft tissues are normal. LUNGS AND AIRWAYS: Progressive central predominant interlobular septal thickening and new scattered p atchy bilateral airspace opacities. Limited subsegmental air bronchogram in the lower lobes.. PLEURA: Moderate to large right pleural effusion progressive since the prior exam, with no evidence o f loculation. Stable small left effusion. No pneumothorax. Hemidiaphragms are normally positioned. MEDIASTINUM AND LYMPH NODES: No mediastinal mass or fluid collection. Normal size mediastinal, hilar, and axillary lymph nodes. THORACIC AORTA: Normal caliber and configuration. PULMONARY ARTERIES: Normal caliber. HEART: Unremarkable. Abdomen/Pelvis LIVER: Normal in size and contour. No focal lesion. GALLBLADDER/BILE DUCTS: At least a single 1 cm calculus seen along the body of the gallbladder. PANCREAS: No mass, ductal dilation, or bonnie-pancreatic fluid. SPLEEN: Normal size. No focal lesion. ADRENALS: Normal; no mass. KIDNEYS AND URETERS: Normal size and contour. No hydronephrosis. GASTROINTESTINAL TRACT: Stomach is non-dilated. Small bowel has normal course and caliber. No colonic wall thickening or pericolonic inflammatory changes. Mild distal colonic diverticulosis. PERITONEUM: No free fluid. LYMPH NODES: No lymphadenopathy. ABDOMINAL AORTA AND OTHER VESSELS: Normal caliber aorta and IVC. URINARY BLADDER: Normal contour. REPRODUCTIVE ORGANS: No pathologic process. MUSCULOSKELETAL: No acute or suspicious osseous abnormality. ADDITIONAL FINDINGS: Fluid-filled structure in the perineum, could relate to a degree of prolapse of the reproductive organs. Ovoid rounded 2.6 cm fluid density structure, could represent an ovarian cyst or be related to the bladder. IMPRESSION: New/progressive patchy bilateral airspace opacities, with central predominant interlobular septal thi ckening. Findings suggest pulmonary edema. Multifocal pneumonia would be difficult to exclude. Progressive right pleural effusion, now moderate to large. Stable left small effusion. Single gallstone. A degree of pelvic floor prolapse is noted as above.
[2024-09-25] MEDS ORDERED: ACETAMINOPHEN 325 MG TABLET PO PRN (22:41)
[2024-09-25] MEDS ORDERED: IPRATROPIUM BROM 0.5MG/2.5ML NEB PRN (22:41)
[2024-09-25] MEDS ORDERED: ONDANSETRON 4 MG/2 ML VIAL IV PRN (22:41)
[2024-09-25] MEDS: FAMOTIDINE 20 MG/2 ML VIAL IV SCH (22:41)
[2024-09-25] MEDS ORDERED: MORPHINE 2 MG/ML SYR IV PRN (22:41)
[2024-09-25] MEDS ORDERED: ALBUTEROL 2.5 MG/3 ML NEB SOL NEB PRN (22:41)
[2024-09-25] MEDS: METHYLPREDNISOLONE 40 MG INJ IV SCH (23:35)
[2024-09-25] MEDS: FAMOTIDINE 20 MG/2 ML VIAL IV ONE (23:35)
[2024-09-26 00:59] VITALS: BMI 20.5
[2024-09-26 06:34] LABS: Absolute Lymphocytes (CBC) 0.2 K/uL (0.7-4.9); Absolute Monocytes 0.1 K/uL (0.1-1.3); Absolute Neutrophil 7.8 K/uL (1.8-8.0); Basophils % 0.1 % (0-1.3); Hematocrit 29.2 % (36.0-45.0); Hemoglobin 9.1 g/dL (12.0-15.0); Lymphocytes % 2.5 % (15.3-44.8); MCH 28.9 pg (27.0-35.0); MCHC 31.2 g/dL (32.0-36.0); MCV 92.7 fL (80-100); MPV 7.5 fL (7.6-11.3); Monocytes % 1.2 % (3.3-12.3); Neutrophils % 96.2 % (41.7-73.7); Nucleated Red Blood Cells % 0.1 % (0-0); Platelets 235 thou/uL (152-406); RBC Red Blood Cell Count 3.16 M/uL (3.86-4.86); Red Cell Distribution Width 20.8 % (12.1-15.2)
[2024-09-26 07:10] LABS: Anion Gap 18.8 mEq/L (5.0-15.0); Potassium 3.8 mEq/L (3.5-5.1)
[2024-09-26] MEDS ORDERED: NA CHLORIDE 0.9% 1,000 ML IV PRN (07:50)
[2024-09-26] MEDS ORDERED: MANNITOL 25% 12.5 GM/50 ML VIAL IV PRN (07:50)
--- NOTE | 2024-09-26 07:52 | P.CNS ---
Date of Consult: 09/26/24 Reason for Consult: ESRD Requesting Physician: Jass Gandhi V Chief Complaint: AMS History of Present Illness: [id number] 17:56 This 84 yrs old Female presents to ER via Wheelchair with complaints of twyla Altered Mental Status. 17:56 The patient presents with confusion, decreased mental status. Onset: The twyla symptoms/episode began/occurred today. Possible causes: low blood sugar, sepsis. Associated signs and symptoms: Pertinent positives: confusion, lightheadedness, nausea, shortness of breath. Current symptoms: In the emergency department the patient's symptoms are unchanged from the initial presentation, despite home interventions. Patient's baseline: Neuro: alert and fully oriented. The patient has experienced similar episodes in the past, several times. The patient recently presented with a high IDWG. She developed dyspnea despite her dialysis on Wednesday. Allergies No Known Allergies Allergy (Verified 09/22/24 10:18) Home medications list reviewed: Yes Home Medications: Lisinopril [Zestril] 20 mg PO DAILY 10/02/23 Cholecalciferol (Vitamin D3) [Vitamin D3] 1,000 unit PO DAILY 02/08/24 Cyanocobalamin [Vitamin B-12*] 1,000 mcg PO DAILY 02/08/24 Sitagliptin Phosphate [Januvia] 50 mg PO DAILY 02/08/24 Sucroferric Oxyhydroxide [Velphoro] 500 mg PO AC 02/08/24 Amiodarone HCl [Cordarone*] 200 mg PO BID 05/01/24 Amlodipine Besylate 5 mg PO DAILY 09/19/24 Apixaban [Eliquis] 2.5 mg PO BID 09/19/24 Atorvastatin Calcium [Lipitor] 20 mg PO BEDTIME 09/19/24 Torsemide 100 mg PO T,TH,S 09/19/24 Vit C/E/Zn/Coppr/Lutein/Zeaxan [Preservision Areds 2 Softgel] 1 each PO DAILY 09/19/24 - Past Medical/Surgical History Diabetic: Yes -: HTN -: prolapse uterus -: HLD -: AFIB -: ESRD (Dr. Alfred/ Dr. Wilkinson) -: Rt ear sx- child -: cataract surgery bliateral -: ORIF left hip 01/12/19 - Family History Father Medical History: Diabetes, Cancer, Kidney disease Mother Medical History: Cancer Notes: - Social History Smoking Status: Current every day smoker Alcohol use: No CD- Drugs: No Caffeine use: Yes Place of Residence: Home Review of Systems 10-point ROS is otherwise unremarkable General: Weakness, Malaise Respiratory: SOB with Excertion Neurological: Confusion Physical Examination Temp Pulse Resp BP Pulse Ox 96.9 F 77 18 156/69 H 93 09/26/24 04:00 09/26/24 04:00 09/26/24 04:00 09/26/24 04:00 09/26/24 04:00 General: In no apparent distress, Oriented x3, Cooperative HEENT: Atraumatic Neck: Supple Respiratory: Diminished Cardiovascular: Regular rate/rhythm, Edema Gastrointestinal: Soft and benign, Non-distended Musculoskeletal: No clubbing, No contractures Integumentary: No rashes, No cyanosis Neurological: Normal speech Laboratory Data (last 24 hrs) 09/25/24 09/25/24 09/25/24 16:57 16:57 16:57 WBC 12.40 H Hgb 10.7 L Hct 34.3 L Plt Count 283 PT 14.1 H INR 1.27 Sodium 135 L Potassium 3.3 L BUN 11 Creatinine 2.11 H Glucose 149 H Magnesium 2.1 Total Bilirubin 0.7 AST 13 L ALT < 14 Alkaline Phosphatase 123 H Lipase 12 L Imagings Data: [id number] EXAMINATION: ONE VIEW CHEST XR CLINICAL INDICATION: Female, 84 years old.,COUGH TECHNIQUE: Frontal chest projection is submitted. Examination is limited by patient positioning and technique. COMPARISON: 09/11/2024 FINDINGS: Progressive central interstitial prominence and fluffy opacities. Persistent right [id number] pleural effusion. No pneumothorax or sizable effusion. The heart is normal in size. Mediastinal contours are unremarkable. IMPRESSION: Progressive findings as above, concerning for pulmonary edema. [id number] EXAM: CT CHEST, ABDOMEN AND PELVIS WITHOUT CONTRAST CLINICAL INDICATION: Female, 84 years old. [facility] MAIN PAIN Bed Name: 3 TECHNIQUE: CT chest, abdomen and pelvis was performed, without IV contrast, as per department protocol. Axial, sagittal and coronal reconstructions were obtained. One or more of the following dose reduction techniques were used: Automated exposure control, adjustment of the mA and/or kV according to the patient size, and/or iterative reconstruction. Unless otherwise specified, incidental findings do not require dedicated imaging follow-up. COMPARISON: 12/08/2023 FINDINGS: The lack of intravenous contrast limits the sensitivity of this exam for evaluation of solid visceral organs, vascular structures, and retroperitoneum. Chest: LOWER NECK/CHEST WALL: Visualized thyroid gland and soft tissues are normal. LUNGS AND AIRWAYS: Progressive central predominant interlobular septal thickening and new scattered patchy bilateral airspace opacities. Limited subsegmental air bronchogram in the lower lobes.. PLEURA: Moderate to large right pleural effusion progressive since the prior exam, with no evidence of loculation. Stable small left effusion. No pneumothorax. Hemidiaphragms are normally positioned. MEDIASTINUM AND LYMPH NODES: No mediastinal mass or fluid collection. Normal size mediastinal, hilar, and axillary lymph nodes. THORACIC AORTA: Normal caliber and configuration. PULMONARY ARTERIES: Normal caliber. HEART: Unremarkable. Abdomen/Pelvis LIVER: Normal in size and contour. No focal lesion. GALLBLADDER/BILE DUCTS: At least a single 1 cm calculus seen along the body of the gallbladder. PANCREAS: No mass, ductal dilation, or bonnie-pancreatic fluid. SPLEEN: Normal size. No focal lesion. ADRENALS: Normal; no mass. KIDNEYS AND URETERS: Normal size and contour. No hydronephrosis. GASTROINTESTINAL TRACT: Stomach is non-dilated. Small bowel has normal course and caliber. No colonic wall thickening or pericolonic inflammatory changes. Mild distal colonic diverticulosis. PERITONEUM: No free fluid. LYMPH NODES: No lymphadenopathy. ABDOMINAL AORTA AND OTHER VESSELS: Normal caliber aorta and IVC. URINARY BLADDER: Normal contour. REPRODUCTIVE ORGANS: No pathologic process. MUSCULOSKELETAL: No acute or suspicious osseous abnormality. ADDITIONAL FINDINGS: Fluid-filled structure in the perineum, could relate to a degree of prolapse of the reproductive organs. Ovoid rounded 2.6 cm fluid density structure, could represent an ovarian cyst or be related to the bladder. IMPRESSION: New/progressive patchy bilateral airspace opacities, with central predominant interlobular septal thickening. Findings suggest pulmonary edema. Multifocal pneumonia would be difficult to exclude. Progressive right pleural effusion, now moderate to large. Stable left small effusion. Single gallstone. A degree of pelvic floor prolapse is noted as above. [id number] EXAM: CT brain without contrast HISTORY: MENTAL STATUS CHANGE COMPARISON: 06/24/2024 TECHNIQUE: Multiple contiguous axial images were obtained and a CT of the brain without contrast. Sagittal and coronal reformats were performed. FINDINGS: No evidence of hydrocephalus, intracranial hemorrhage, or extra-axial fluid collection. Mild brain atrophy with mild periventricular and deep white matter chronic microvascular ischemic changes present. The calvarium is intact. The visualized paranasal sinuses are grossly clear. Sequelae of right canal wall down mastoidectomy. IMPRESSION: No evidence of acute intracranial abnormality. EXAM: CT of the cervical spine without contrast HISTORY: MENTAL STATUS CHANGE COMPARISON: None TECHNIQUE: Multiple contiguous axial images were obtained in a CT of the cervical spine without contrast. Sagittal and coronal reformats were performed. FINDINGS: The vertebral bodies demonstrate normal height and alignment. No evidence of acute fracture or subluxation.. Stable multilevel degenerative changes are present. No prevertebral soft tissue swelling is seen. The posterior facets are well aligned. Normal alignment of the skull base with the cervical spine is seen. Patchy alveolar opacities and prominence of the interlobular septi noted throughout the included upper lungs. Moderate layering right pleural effusion. IMPRESSION: No evidence of acute osseous abnormality of the cervical spine. Bilateral upper lung abnormalities as above, separately evaluated on dedicated CT of the chest of the same day. Conclusions/Impression: ESRD on HD MWF Proteinuria -Arrange for UF today Hypokalemia -Replete prn HTN with CKD/ CHF -Continue Lisinopril and Amlodipine Diastolic CHF, A/C -UF today DM II with CKD -RISS Hypoalbuminemia -Albumin X1 with HD Anemia in CKD -Retacrit qHD CKD MBD -Continue oLis Attending and ER notes reviewed Thank you kindly for the consultation
[2024-09-26] MEDS ORDERED: EPOETIN ALFA 10,000 UNIT/ML VIAL IV SCH ×2 (08:00→15:15)
[2024-09-26] MEDS: FUROSEMIDE 40 MG/4 ML VIAL IV SCH (08:51)
[2024-09-26] MEDS: CEFEPIME 1 GM in NA CHLORIDE 0.9% 100 ML IV SCH (08:51)
--- NOTE | 2024-09-26 08:52 | EKG ---
Test Date: 2024-09-25 Test Time: 17:09:47 Cardboard Inserter: AM MEASUREMENT RESULTS: Intervals: Rate: 77 LA: 212 QRSD: 90 QT: 466 QTc: 527 Sargent: P: LA: 212 QRS: -50 T: 132 INTERPRETIVE STATEMENTS: Sinus rhythm with 1st degree AV block with occasional premature ventricular complexes Left axis deviation Anteroseptal infarct, age undetermined Marked ST abnormality, possible inferior subendocardial injury Prolonged QT Abnormal ECG Compared to ECG 09/22/2024 15:20:45 First degree AV block now present Left-axis deviation now present ST (T wave) deviation now present Prolonged QT interval now present Electronically Signed On 09-26-24 08:50:39 [facility] [employer] by Yuan Mathis
[2024-09-26] MEDS: TORSEMIDE 100 MG PO SCH (12:15)
[2024-09-26] MEDS: ALBUMIN HUMAN 25% 50 ML IV SCH (14:59)
[2024-09-26] MEDS: SUCROFERRIC OXYHYDROXIDE 500 MG PO SCH (16:03)
[2024-09-26 16:20] LABS: Hepatitis B surface AG Interp. Nonreactive (Nonreactive)
[2024-09-26 16:21] LABS: HBsAG Nonreactive Report Report
--- NOTE | 2024-09-26 16:59 | P.HP ---
Patient History Date of Service: 09/26/24 Reason for admission: AMS History of Present Illness: DYSPNEA, WEAK, FATIGUE PER DR. LOWE SHE IS NOT COMPLIANT. SHE HAD TOO MUCH FLUID AFTER THE WEEKEND POSSIBLE FROM [place] FOOD. SHE WAS ASKED TO GET ONE EXTRA HD BUT SHE DID NOT . SHE IS HERE NOW WITH DYSPNEA. SHE WILL GET EXTRA HD TODAY AND ONE ROUTINE TOMORROW. Allergies No Known Allergies Allergy (Verified 09/22/24 10:18) Home medications list reviewed: Yes Home Medications: Lisinopril [Zestril] 20 mg PO DAILY 10/02/23 Cholecalciferol (Vitamin D3) [Vitamin D3] 1,000 unit PO DAILY 02/08/24 Cyanocobalamin [Vitamin B-12*] 1,000 mcg PO DAILY 02/08/24 Sitagliptin Phosphate [Januvia] 50 mg PO DAILY 02/08/24 Sucroferric Oxyhydroxide [Velphoro] 500 mg PO AC 02/08/24 Amiodarone HCl [Cordarone*] 200 mg PO BID 05/01/24 Amlodipine Besylate 5 mg PO DAILY 09/19/24 Apixaban [Eliquis] 2.5 mg PO BID 09/19/24 Atorvastatin Calcium [Lipitor] 20 mg PO BEDTIME 09/19/24 Torsemide 100 mg PO T,,S 09/19/24 Vit C/E/Zn/Coppr/Lutein/Zeaxan [Preservision Areds 2 Softgel] 1 each PO DAILY 09/19/24 - Past Medical/Surgical History Has patient received pneumonia vaccine in the past: No Diabetic: Yes -: HTN -: prolapse uterus -: HLD -: AFIB -: ESRD (Dr. Lowe/ Dr. Wilkinson) -: Rt ear sx- child -: cataract surgery bliateral -: ORIF left hip 01/12/19 - Family History Father -: Diabetes, Cancer, Kidney disease Mother -: Cancer Notes: - Social History Smoking Status: Current every day smoker Alcohol use: No CD- Drugs: No Caffeine use: Yes Place of Residence: Home Review of Systems 10-point ROS is otherwise unremarkable General: Weakness, As per HPI Physical Examination - Vital Signs Temperature: 97.5 F Blood Pressure: 146/59 Pulse: 77 Respirations: 18 Pulse Ox (%): 91 - Physical Exam General: Acute distress, Mild distress HEENT: Atraumatic, PERRLA, Mucous membr. moist/pink, EOMI, Sclerae nonicteric Neck: Supple, 2+ carotid pulse no bruit, No LAD, Without JVD or thyroid a bnormality Respiratory: Clear to auscultation bilaterally, Normal air movement Cardiovascular: Regular rate/rhythm, Normal S1 S2 Gastrointestinal: Normal bowel sounds, No tenderness Musculoskeletal: No tenderness Integumentary: No rashes Neurological: Normal gait, Normal speech, Normal strength at 5/5 x4 extr, Normal tone, Normal affect Lymphatics: No axilla or inguinal lymphadenopathy - Studies Laboratory Data (last 24 hrs) 09/25/24 09/25/24 09/25/24 16:57 16:57 16:57 WBC 12.40 H Hgb 10.7 L Hct 34.3 L Plt Count 283 PT 14.1 H INR 1.27 Sodium 135 L Potassium 3.3 L BUN 11 Creatinine 2.11 H Glucose 149 H Magnesium 2.1 Total Bilirubin 0.7 AST 13 L ALT < 14 Alkaline Phosphatase 123 H Lipase 12 L Assessment and Plan - Problems (Diagnosis) (1) Acute on chronic diastolic heart failure Current Visit: Yes Status: Acute Plan: FROM ABOVE HISTORY AFTER ONE EXTRA HD SHE WILL BE BETTER. (2) CKD, patient preferred treatment modality in-center hemodialysis Current Visit: No Status: Chronic Plan: STABLE. WILL GET [facility]EM[facility] RTN HD IN AM DC HOME AFTER THAT. HEAVY SMOKER AND POOR PROGNOSIS. - Advance Directives Does patient have a Living Will: No Does patient have a Durable POA for Healthcare: No
[2024-09-26] MEDS: AMIODARONE HCL 200 MG TAB PO SCH (20:39)
[2024-09-26] MEDS: APIXABAN 2.5 MG TABLET PO SCH (20:39)
[2024-09-26] MEDS: ATORVASTATIN 20 MG TAB PO SCH (20:40)
[2024-09-27 00:15] VITALS: O2SAT 94
[2024-09-27] MEDS: [UNRECOGNIZED DRUG - OTHER] PO SCH (09:00)
[2024-09-27] MEDS: SITAGLIPTIN PHOSPHATE 50 MG PO SCH (09:00)
[2024-09-27] MEDS: VITAMIN D 1000 UNIT TAB PO SCH (09:31)
[2024-09-27] MEDS: CYANOCOBALAMIN 1,000 MCG TAB PO SCH (09:31)
[2024-09-27] MEDS: AMLODIPINE 5 MG TAB PO SCH (09:31)
[2024-09-27] MEDS: lisinopriL 20 MG TAB PO SCH (09:31)
[2024-09-27 09:32] VITALS: BP 186/76
[2024-09-27 10:10] VITALS: TEMP 97.7
--- NOTE | 2024-09-27 10:53 | P.PN ---
(S) Pt seen sitting in chair, not needing O2, no acute resp distress at rest, no acute complaints, s/p SEQ/UF alone dialysis yesterday (O) vitals reviewed in the ENR General: Alert, In no apparent distress, Cooperative HEENT: Atraumatic, Normocephalic, left nasal passage stiches Neck: Supple Respiratory: Other (Non tachypnec, some reduced BS at bases, some dysphonia) Cardiovascular: Other (non tachy, irregularly irregular, cardiac murmur) Gastrointestinal: Soft and benign, Non-distended, No guarding Musculoskeletal: No contractures, Other (Distal edema, trace) Integumentary: No rashes Neurological: Normal speech, Normal tone Laboratory Data (last 24 hrs) 01/14/24 01/14/24 14:04 14:04 WBC 6.90 Hgb 9.7 L Hct 29.3 L Plt Count 149 L Sodium 136 Potassium 3.5 BUN 27 H Creatinine 2.74 H Glucose 123 H Magnesium 2.0 Conclusions/Impression: ESRD on iHD MWF -HD today per OP schedule, acceptable pre HD metab profile Acute on chronic dyspnea, cough -Probable superimposed PNA, unspecified pathogen on chronic pleural effusion NOS, other. 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
--- NOTE | 2024-09-27 18:01 | P.DS ---
Admission Date: 09/25/24 Discharge Date: 09/27/24 Disposition: DC HOME/HOME HEALTH CARE Discharge Condition: GOOD Reason for Admission: AMS - Problems (1) Acute on chronic diastolic heart failure Current Visit: Yes Status: Acute (2) CKD, patient preferred treatment modality in-center hemodialysis Current Visit: No Status: Chronic Brief History of Present Illness: DYSPNEA, WEAK, FATIGUE PER DR. LOWE SHE IS NOT COMPLIANT. SHE HAD TOO MUCH FLUID AFTER THE WEEKEND POSSIBLE FROM [place] FOOD. SHE WAS ASKED TO GET ONE EXTRA HD BUT SHE DID NOT . SHE IS HERE NOW WITH DYSPNEA. SHE WILL GET EXTRA HD TODAY AND ONE ROUTINE TOMORROW. Hospital Course: VENESSA EATS SALTY FOODS AND ENDS UP IN ER. I TOLD HER AND FAMILY THAT SHE GETS HD TIW. SHE MUST EAT BETTER IF SHE WANTS TO AVOID URGENT ADMISSION AFTER SALT LOADED FOODS. SHE NEES TO HAVE LOW SALT DIET. FAMILY IS AWARE. AFTER ONE EXTRAS HD SHE IS A LOT BETTER. SHE IS A SMOKER WITH MANY SMOKING RELATED COMPLICATIONS. Vital Signs/Physical Exam: Temp Pulse Resp BP Pulse Ox 97.7 F 65 21 H 186/76 H 93 09/27/24 08:00 09/27/24 09:31 09/27/24 08:00 09/27/24 09:31 09/27/24 08:00 Laboratory Data at Discharge: WBC 8.10 thou/uL (4.3-10.9) 09/26/24 06:22 Hgb 9.1 g/dL (12.0-15.0) L D 09/26/24 06:22 Hct 29.2 % (36.0-45.0) L 09/26/24 06:22 Plt Count 235 thou/uL (152-406) 09/26/24 06:22 PT 14.1 SECONDS (9.4-12.5) H 09/25/24 16:57 INR 1.27 09/25/24 16:57 Sodium 137 mEq/L (136-145) 09/26/24 06:22 Potassium 3.8 mEq/L (3.5-5.1) D 09/26/24 06:22 BUN 25 mg/dL (7-18) H 09/26/24 06:22 Creatinine 2.80 mg/dL (0.55-1.02) H 09/26/24 06:22 Glucose 209 mg/dL (74-106) H 09/26/24 06:22 Magnesium 2.1 mg/dL (1.6-2.4) 09/25/24 16:57 Total Bilirubin 0.7 mg/dL (0.2-1.0) 09/25/24 16:57 AST 13 U/L (15-37) L 09/25/24 16:57 ALT < 14 U/L (13-56) 09/25/24 16:57 Alkaline Phosphatase 123 U/L (45-117) H 09/25/24 16:57 Lipase 12 U/L (13-75) L 09/25/24 16:57 Home Medications: Lisinopril [Zestril] 20 mg PO DAILY 10/02/23 Cholecalciferol (Vitamin D3) [Vitamin D3] 1,000 unit PO DAILY 02/08/24 Cyanocobalamin [Vitamin B-12*] 1,000 mcg PO DAILY 02/08/24 Sitagliptin Phosphate [Januvia] 50 mg PO DAILY 02/08/24 Sucroferric Oxyhydroxide [Velphoro] 500 mg PO AC 02/08/24 Amiodarone HCl [Cordarone*] 200 mg PO BID 05/01/24 Amlodipine Besylate 5 mg PO DAILY 09/19/24 Apixaban [Eliquis] 2.5 mg PO BID 09/19/24 Atorvastatin Calcium [Lipitor] 20 mg PO BEDTIME 09/19/24 Torsemide 100 mg PO T,TH,S 09/19/24 Vit C/E/Zn/Coppr/Lutein/Zeaxan [Preservision Areds 2 Softgel] 1 each PO DAILY 09/19/24 Followup: Jass Gandhi MD [Primary Care Provider] - 1 Week
== END 2024-09-27 17:55 | disposition home or self-care (01) | DRG 291 ==
LOC: ER 16:25 → ERHOLD 18:10 → 4TH 21:05
PROVIDERS: ADMIT Internal Medicine; ATTEND Internal Medicine
PROC: 5A09457 Assistance with Respiratory Ventilation, 24-96 Consecutive Hours, Continuous Positive Airway Pressure (ICD-10-PCS; principal; 2024-09-25)
PROC: 5A1D70Z Performance of Urinary Filtration, Intermittent, Less than 6 Hours Per Day (ICD-10-PCS; 2024-09-25)
DX: I13.2 Hypertensive heart and chronic kidney disease with heart failure and with stage 5 chronic kidney disease, or end stage renal disease (principal); I50.33 Acute on chronic diastolic (congestive) heart failure; N18.6 End stage renal disease; J44.1 Chronic obstructive pulmonary disease with (acute) exacerbation; E11.22 Type 2 diabetes mellitus with diabetic chronic kidney disease; D63.1 Anemia in chronic kidney disease; E87.6 Hypokalemia; E78.5 Hyperlipidemia, unspecified; I48.91 Unspecified atrial fibrillation; E88.09 Other disorders of plasma-protein metabolism, not elsewhere classified; F17.210 Nicotine dependence, cigarettes, uncomplicated; Z99.2 Dependence on renal dialysis; Z71.6 Tobacco abuse counseling; Z79.01 Long term (current) use of anticoagulants; Z79.899 Other long term (current) drug therapy; Z96.642 Presence of left artificial hip joint
CPT/HCPCS: 36415; 51702; 70450; 71045; 71250; 72125; 74176; 80048; 80076; 81001; 82947; 83605; 83690; 83735; 83880; 84484; 85025; 85610; 87040; 87086; 87088; 87340; 90935; 93005; 94660; 94760; 96365; 96375; 99285; J0692; J0696; J1644; J1940; J2919; J7030; J7614; J7644; P9047

== ENCOUNTER 2024-12-29 02:03 | Emergency (ER) | payer OTHER ==
[2024-12-29] MEDS ORDERED: LIDOCAINE 2% W/EPI 1:200,000 MPF 20 ML VIAL IM ONE (02:22)
--- NOTE | 2024-12-29 03:48 | ER ---
Nurse's Notes [facility] Name: Luisa Sanchez Age: 84 yrs Sex: Female : 1940 Arrival Date: 12/29/2024 Time: 02:03 Bed 6 Private MD: Diagnosis: Nasal septal bleeding,, postoperative bleeding after nasal septal resection;Arterial post operative bleeding Presentation: 12/29 02:17 Chief complaint: Patient states: NOSE BEGAN BLEEDING FROM SURGICAL SIGHT. PT REPORTS dd2 CANCEROUS TUMOR REMOVED 2 WEEKS AGO AND BEGAN TAKING HER ELIQUIS 1 WEEK AGO. REPORTS SHE BEGAN BLEEDING ABOUT 1 HOUR AGO. Coronavirus screen: At this time, the client does not indicate any symptoms associated with coronavirus-19. Ebola Screen: No symptoms or risks identified at this time. Initial Sepsis Screen: Does the patient meet any 2 criteria? No. Patient's initial sepsis screen is negative. Does the patient have a suspected source of infection? No. Patient's initial sepsis screen is negative. Risk Assessment: Do you want to hurt yourself or someone else? Patient reports no desire to harm self or others. Onset of symptoms was December 29, 2024. 02:17 Method Of Arrival: Wheelchair dd2 02:17 Acuity: ELIEZER 3 dd2 Triage Assessment: 02:20 General: Appears in no apparent distress. uncomfortable, Behavior is calm, cooperative, dd2 appropriate for age. Pain: Complains of pain in nose. EENT: Nares with bleeding noted on right. Neuro: Valle Agitation-Sedation Scale (RASS): 0 - Alert and Calm Level of Consciousness is awake, alert, obeys commands, Oriented to person, place, time, situation, Appropriate for age. Cardiovascular: Patient's skin is warm and dry. Respiratory: Airway is patent Respiratory effort is even, unlabored, Respiratory pattern is regular, symmetrical. GI: No deficits noted. No signs and/or symptoms were reported involving the gastrointestinal system. : No deficits noted. No signs and/or symptoms were reported regarding the genitourinary system. Derm: OPEN SURGICAL WOUND TO NOSE. COPIOUS BLEEDING NOTED FROM RIGHT SURGICAL SITE. Musculoskeletal: No deficits noted. No signs and/or symptoms reported regarding the musculoskeletal system. Historical: - Allergies: 02:20 No Known Allergies; dd2 - PMHx: 02:20 Anemia; Diabetes - NIDDM; Dialysis (kidney disease); Hyperlipidemia; Hypertension; dd2 kidney disease; SKIN CANCER (kidney disease); - PSHx: 02:20 diaylsis fistula to left upper arm; foot; hip; nasal CA removed (d ); Skin grafting; dd2 Stented artery; - Immunization history:: Adult Immunizations not up to date, Client reports having NOT received the Covid vaccine. Pneumococcal vaccine is not up to date, patient has never been vaccinated, Flu vaccine is not up to date. Patient has never been vaccinated. - Infectious Disease History:: Denies. - Social history:: Smoking status: Patient reports the use of cigarette tobacco products, unknown amount. - Family history:: not pertinent. Screenin:30 [facility] ED Fall Risk Assessment (Adult) History of falling in the last 3 months, dd2 including since admission No falls in past 3 months (0 pts) Confusion or Disorientation No (0 pts) Intoxicated or Sedated No (0 pts) Impaired Gait No (0 pts) Mobility Assist Device Used Yes (1 pt) Altered Elimination No (0 pt) Score/Fall Risk Level 0 - 2 = Low Risk Oriented to surroundings, Maintained a safe environment, Educated pt \T\ family on fall prevention, incl call for assistance when getting out of bed, Assessed \T\ reinforced patient's understanding of fall precautions, Hourly rounding (assess needs \T\ fall precautionary measures) done. Abuse screen: Denies threats or abuse. Nutritional screening: No deficits noted. Tuberculosis screening: No symptoms or risk factors identified. Assessment: 02:26 Reassessment: SEE TRIAGE ASSESSMENT FOR FULL ASSESSMENT. dd2 Vital Signs: 02:17 BP 157 / 61; Pulse 64; Resp 16; Temp 98; Pulse Ox 94% on R/A; Weight 52.62 kg (M); dd2 03:30 BP 152 / 66; Pulse 62; Resp 17; Pulse Ox 97% on R/A; dd2 04:15 BP 169 / 57; Pulse 64; Resp 16; Pulse Ox 96% on R/A; dd2 Kimberlee Coma Score: 02:30 Eye Response: spontaneous(4). Motor Response: obeys commands(6). Verbal Response: dd2 oriented(5). Total: 15. 15 02:25 Eye Response: spontaneous(4). Motor Response: obeys commands(6). Verbal Response: sp4 oriented(5). Total: 15. ED Course: 12/29 02:06 Patient arrived in ED. [id number] 02:08 Dimitri Briones MD is Attending Physician. sp4 02:16 ELZBIETA RADFORD, RN is Primary Nurse. dd2 02:20 Triage completed. dd2 02:20 Arm band placed on right wrist. dd2 02:30 Patient has correct armband on for positive identification. Bed in low position. Call dd2 light in reach. Side rails up X 1. Client placed on continuous cardiac and pulse oximetry monitoring. NIBP monitoring applied. Door closed. Noise minimized. Warm blanket given. Pillow given. Verbal reassurance given. 02:30 Assist provider with nosebleed control Bleeding from right nares. Set up for procedure. dd2 Performed by Dimitri Briones MD Bleeding stopped. Patient tolerated well. METHOD: Sutured bleeding area. Patient did not have IV access during this emergency room visit. Patient maintains SpO2 saturation greater than 95% on room air. 04:45 Provided Education on: d/c education. dd2 Administered Medications: 02:42 Drug: Lidocaine-Epinephrine Infiltration -2 % (1:100,000) 10 ml Infiltration once; to dd2 bedside {Note: ADMINISTERED BY DR. BRIONES.} Route: Infiltration; Site: affected area; 03:12 Follow up: Response: No adverse reaction dd2 04:19 Drug: HYDROcodone-acetaminophen PO 5 mg-325 mg 2 tabs PO once Route: PO; dd2 04:45 Follow up: Response: No adverse reaction dd2 Medication: 02:30 VIS not applicable for this client. dd2 Outcome: 03:47 Discharge ordered by . sp4 04:45 Discharged to home via wheelchair, with family, dd2 04:45 Condition: stable 04:45 Discharge instructions given to patient, family, Instructed on discharge instructions, follow up and referral plans. medication usage, Demonstrated understanding of instructions, follow-up care, medications, Prescriptions given X 1, 04:46 Patient left the ED. dd2 Signatures: Wale Soco [email or web address] Dimitri Briones MD MD sp4 ELZBIETA RADFORD RN RN dd2
--- NOTE | 2024-12-29 03:48 | EDPHYS ---
Physician Documentation [facility] Name: Luisa Sanchez Age: 84 yrs Sex: Female : 1940 Arrival Date: 12/29/2024 Time: 02:03 Bed 6 Private MD: ED Physician Dimitri Briones HPI: 12/29 02:08 This 84 yrs old Female presents to ER via Unassigned with complaints of Post sp4 Surgical Bleeding. 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 Patient now has exposed skin of nasolabial angle acute small arterial bleeding. Patient woke up with acute bleeding which prompted arrival to the emergency room. Historical: - Allergies: 12/29 02:20 No Known Allergies; dd2 - PMHx: 02:20 Anemia; Diabetes - NIDDM; Dialysis (kidney disease); Hyperlipidemia; Hypertension; dd2 kidney disease; SKIN CANCER (kidney disease); - PSHx: 02:20 diaylsis fistula to left upper arm; foot; hip; nasal CA removed (d ); Skin grafting; dd2 Stented artery; - Immunization history:: Adult Immunizations not up to date, Client reports having NOT received the Covid vaccine. Pneumococcal vaccine is not up to date, patient has never been vaccinated, Flu vaccine is not up to date. Patient has never been vaccinated. - Infectious Disease History:: Denies. - Social history:: Smoking status: Patient reports the use of cigarette tobacco products, unknown amount. - Family history:: not pertinent. ROS: 12/30 02:25 Constitutional: Negative for fever, chills, and weight loss, positive nasal bleeding sp4 All other systems are negative, Exam: 02:25 Constitutional: This is a well developed, well nourished patient who is awake, alert, sp4 and in no acute distress. Head/Face: Normocephalic, atraumatic. Eyes: Pupils equal round and reactive to light, extra-ocular motions intact. Lids and lashes normal. Conjunctiva and sclera are not injected. Cornea within normal limits. Periorbital areas with no swelling, redness, or edema. ENT: Nares patent. Patient has signs of recent resection of columella, part of a nasal septum , soft tissue triangle of the nose, base of the nasolabial angle contains actively bleeding small arteriole. Pressure was applied for bleeding control Neck: Trachea midline, no thyromegaly or masses palpated, and no cervical lymphadenopathy. Supple, full range of motion without nuchal rigidity, or vertebral point tenderness. Chest/axilla: Normal chest wall appearance and motion. Nontender with no deformity. No lesions are appreciated. Cardiovascular: Regular rate and rhythm with a normal S1 and S2. No gallops, murmurs, or rubs. Normal PMI, no JVD. No pulse deficits. Respiratory: Lungs have equal breath sounds bilaterally, clear to auscultation and percussion. No rales, rhonchi or wheezes noted. No increased work of breathing, no retractions or nasal flaring. Abdomen/GI: Soft, with normal bowel sounds. No distension or tympany. No guarding or rebound. No evidence of tenderness throughout. Back: No spinal tenderness. No costovertebral tenderness. Skin: Warm, dry with normal turgor. Normal color with no rashes, no lesions, and no evidence of cellulitis. MS/ Extremity: Pulses equal, no cyanosis. Neurovascular intact. Full, normal range of motion. Neuro: Awake and alert, GCS 15, oriented to person, place, time, and situation. Cranial nerves II-XII grossly intact. Motor strength 5/5 in all extremities. Sensory grossly intact. Psych: Awake, alert, with orientation to person, place and time. Behavior, mood, and affect are within normal limits Vital Signs: 12/29 02:17 BP 157 / 61; Pulse 64; Resp 16; Temp 98; Pulse Ox 94% on R/A; Weight 52.62 kg (M); dd2 03:30 BP 152 / 66; Pulse 62; Resp 17; Pulse Ox 97% on R/A; dd2 04:15 BP 169 / 57; Pulse 64; Resp 16; Pulse Ox 96% on R/A; dd2 Kimberlee Coma Score: 02:30 Eye Response: spontaneous(4). Motor Response: obeys commands(6). Verbal Response: dd2 oriented(5). Total: 15. 12/30 02:25 Eye Response: spontaneous(4). Motor Response: obeys commands(6). Verbal Response: sp4 oriented(5). Total: 15. 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 Profuse bleeding noted.. Distal neuro/vascular/tendon intact. Anesthesia: Wound infiltrated with 10 mls of 1% lidocaine w/ Epi. Wound prep: Moderate cleansing by me. Skin closed with 3 4-0 Vicryl using interrupted sutures and sterile technique. Dressed with Surgicel dressing applied. Patient tolerated well. MDM: 12/29 02:23 Medical Screening Exam initiated sp4 12/30 02:25 Differential diagnosis: cellulitis, Postoperative bleeding. Data reviewed: vital signs, sp4 nurses notes. 02:35 ED course: The postoperative site was bleeding and small arterial bleeding was ligated sp4 with Vicryl sutures. Patient was given dressing with Surgicel application. Patient advised to see her ENT surgeon within the next 24 hours for postoperative wound check. . 12/29 02:22 Order name: Dressing - Wound; Complete Time: 02:55 sp4 12/29 02:22 Order name: Gloves, Sterile; Complete Time: 02:27 sp4 12/29 02:22 Order name: Setup Suture Tray; Complete Time: 02:27 sp4 Administered Medications: 12/29 02:42 Drug: Lidocaine-Epinephrine Infiltration -2 % (1:100,000) 10 ml Infiltration once; to dd2 bedside {Note: ADMINISTERED BY DR. BRIONES.} Route: Infiltration; Site: affected area; 03:12 Follow up: Response: No adverse reaction dd2 04:19 Drug: HYDROcodone-acetaminophen PO 5 mg-325 mg 2 tabs PO once Route: PO; dd2 04:45 Follow up: Response: No adverse reaction dd2 Disposition Summary: 12/29/24 03:47 Discharge Ordered Notes: Location: Home sp4 Problem: new sp4 Symptoms: have improved sp4 Condition: Stable sp4 Diagnosis - Nasal septal bleeding,, postoperative bleeding after nasal septal resection sp4 - Arterial post operative bleeding sp4 Followup: sp4 - With: Private Physician - When: 24 Hours - Reason: Recheck today's complaints Discharge Instructions: - Discharge Summary Sheet sp4 - Bleeding After Dental Procedures sp4 Forms: - Patient Portal Instructions sp4 Prescriptions: - acetaminophen-codeine 300-60 mg Oral tablet - take 1 tablet ORAL route every 8 hours PRN pain; 20 tablet; Refills: 0, Product sp4 Selection Permitted Signatures: Dimitri Briones MD MD sp4 ELZBIETA RADFORD RN RN dd2
[2024-12-29] MEDS ORDERED: HYDROCODONE/APAP 5/325 MG TAB ONE (04:16)
[2024-12-29 06:00] VITALS: BP 169/57; TEMP 98; O2SAT 96
== END 2024-12-29 04:46 | disposition home or self-care (01) ==
LOC: ER 02:03
DX: L76.22 Postprocedural hemorrhage of skin and subcutaneous tissue following other procedure (principal); Z85.828 Personal history of other malignant neoplasm of skin
CPT/HCPCS: 12051; 99284

== ENCOUNTER 2025-03-30 09:50 | Emergency (ER) | payer OTHER ==
[2025-03-30] MEDS ORDERED: CEFAZOLIN SODIUM 1 GM/VIAL ONE (13:37)
--- NOTE | 2025-03-30 14:28 | RAD REPORT ---
EXAMINATION: Humerus Right VIEWS: Two views CLINICAL INDICATION: Female, 84 years old. PAIN RIGHT COMPARISON: No prior exam. IMPRESSION: No acute fracture. No acute soft tissue abnormality. No radiopaque foreign body.
[2025-03-30] MEDS ORDERED: LIDOCAINE 2% W/EPI 1:200,000 MPF 20 ML VIAL IM ONE (15:01)
--- NOTE | 2025-03-30 15:42 | ER ---
Nurse's Notes [facility] Name: Luisa Sanchez Age: 84 yrs Sex: Female : 1940 Arrival Date: 03/30/2025 Time: 09:50 Bed 10 Private MD: Diagnosis: Fall on same level from slipping, tripping and stumbling with subsequent striking against object;Laceration without foreign body of right hand, initial encounter Presentation: 03/30 10:15 Chief complaint: Fell backwards into dresser last night, c/o pain in right shoulder and hb laceration to right hand. Bleeding controlled. Coronavirus screen: At this time, the client does not indicate any symptoms associated with coronavirus-19. Ebola Screen: No symptoms or risks identified at this time. Initial Sepsis Screen: Does the patient meet any 2 criteria? No. Patient's initial sepsis screen is negative. Does the patient have a suspected source of infection? No. Patient's initial sepsis screen is negative. Risk Assessment: Do you want to hurt yourself or someone else? Patient reports no desire to harm self or others. Onset of symptoms was March 29, 2025. 10:15 Method Of Arrival: Wheelchair hb 10:15 Acuity: ELIEZER 4 hb 13:07 Complicating Factors: There are no complicating factors for this patient. iw Historical: - Allergies: 13:07 No Known Allergies; iw - PMHx: 13:07 Anemia; Diabetes - NIDDM; Dialysis; Hyperlipidemia; Hypertension; kidney disease; skin iw cancer; - PSHx: 10:16 diaylsis fistula to left upper arm; foot; hip; nasal CA removed; Skin grafting; Stented hb artery; - Infectious Disease History:: Denies. Screenin:22 [facility] ED Fall Risk Assessment (Adult) History of falling in the last 3 months, iw including since admission Yes- single mechanical fall (1 pt) Confusion or Disorientation No (0 pts) Intoxicated or Sedated No (0 pts) Impaired Gait Yes (1 pt) Mobility Assist Device Used Yes (1 pt) Altered Elimination No (0 pt) Score/Fall Risk Level 3 or more points = High Risk Oriented to surroundings, Maintained a safe environment. Abuse screen: Denies injuries from another. Nutritional screening: No deficits noted. Tuberculosis screening: No symptoms or risk factors identified. Assessment: 13:08 General: Appears in no apparent distress. Behavior is calm, cooperative. Pain: iw Complains of pain in right arm and right hand. Neuro: Level of Consciousness is awake, alert, obeys commands. Derm: Skin is fragile, is thin. Musculoskeletal: Range of motion: limited in right shoulder. Injury Description: Avulsion sustained to right hand is partial was sustained 12-24 hours ago. Injury Description: Laceration sustained to dorsal aspect of left forearm is superficial, not bleeding. 14:00 Reassessment: Patient appears in no apparent distress at this time. Patient and/or iw family updated on plan of care and expected duration. Pain level reassessed. wound care complete by manufacturing technologist. 15:00 Reassessment: Dr. Santos at bedside to set up for lac repair. iw Vital Signs: 10:15 BP 140 / 49; Pulse 68; Resp 18; Temp 97.8; Pulse Ox 96% on R/A; Pain 4/10; hb 10:15 Pain Scale: Adult hb ED Course: 09:52 Patient arrived in ED. mr 10:16 Triage completed. hb 10:16 Arm band placed on. hb 10:56 Nav Santos MD is Attending Physician. bo1 12:28 Sonali Elaine, ALDO is Primary Nurse. iw 13:55 Humerus Right XRAY In Process Unspecified. EDMS 14:00 Inserted saline lock: 24 gauge in right wrist, using aseptic technique. iw 14:55 Patient has correct armband on for positive identification. iw 15:40 Assist provider with laceration repair on right hand that was between 2.6 to 7.5 cm iw using sutures. Set up tray. Performed by Nav Santos MD Dressed with 4X4s, Fawad, Patient tolerated well. 15:45 IV discontinued, intact, bleeding controlled, No redness/swelling at site. Pressure iw dressing applied. Administered Medications: 13:48 Drug: ceFAZolin IVPB 1 grams IVPB once Route: IVPB; Site: right wrist; iw 13:58 Follow up: IV Status: Completed infusion iw Outcome: 15:42 Discharge ordered by MD. bo1 15:46 Discharged to home via wheelchair, with family, iw 15:46 Condition: good 15:46 Discharge instructions given to patient, family, Instructed on discharge instructions, follow up and referral plans. Demonstrated understanding of instructions, follow-up care, medications, Prescriptions given X 1, 15:47 Patient left the ED. iw Signatures: Dispatcher [employer] EDMS Shannen Gramajo, Reg Reg mr Sonali Elaine, RN RN iw Sofiya Moss RN RN Oei, MD PEPE Chopra bo1 Corrections: (The following items were deleted from the chart) 10:16 10:15 BP 140 / 49; Pulse 68bpm; Resp 18bpm; Pulse Ox 100% RA; Temp 97.8F; Pain 4/10, hb Adult; hb 14:55 14:51 Inserted saline lock: 24 gauge in right wrist, using aseptic technique. iw iw
--- NOTE | 2025-03-30 15:42 | EDPHYS ---
Physician Documentation [facility] Name: Luisa Sanchez Age: 84 yrs Sex: Female : 1940 Arrival Date: 03/30/2025 Time: 09:50 Bed 10 Private MD: ED Physician Nav Santos HPI: 03/30 11:14 This 84 yrs old Female presents to ER via Wheelchair with complaints of Laceration To bo1 Hand, Arm Pain. 11:14 The patient has a laceration occurred at home, Pt fell after losing balance against a bo1 dresser last night \\T\\ 12am. The laceration(s) is(are) located on the right hand and right arm. Onset: The symptoms/episode began/occurred suddenly, last night. Associated signs and symptoms: Pertinent negatives: loss of consciousness, No AMS per daughter present - pt is at baseline. Recent surgery for head and neck CA at [facility]. Historical: - Allergies: 13:07 No Known Allergies; iw - PMHx: 13:07 Anemia; Diabetes - NIDDM; Dialysis; Hyperlipidemia; Hypertension; kidney disease; skin iw cancer; - PSHx: 10:16 diaylsis fistula to left upper arm; foot; hip; nasal CA removed; Skin grafting; Stented hb artery; - Infectious Disease History:: Denies. ROS: 15:30 Constitutional: Negative for fever, chills, and weight loss bo1 15:30 ENT: Positive for Recent surgery for nose CA, 15:30 Neck: Positive for VASILE drain for recent surgery, 15:30 Cardiovascular: Negative for chest pain, 15:30 Respiratory: Negative for cough, shortness of breath, 15:30 MS/extremity: Positive for laceration, pain, Injuries with skin tears but lac to webspace of the right thumb and index finger; pain to the right humerus, 15:30 Skin: Positive for Skin tears, Exam: 15:32 Constitutional: This is a well developed, well nourished patient who is awake, alert, bo1 and in no acute distress. 15:32 Constitutional: The patient appears alert, awake, comfortable, non-toxic, Pt is with a VASILE drain in place on the left neck and in the nose (radical excision) with sewn in xeroform packing 15:34 ENT: Xeroform packing in place with pt using an external headphones for audio hearing. bo1 15:34 Neck: External neck: VASILE drain in place, 15:34 Cardiovascular: Rate: Irregular, known afib, rate is normal, 15:34 Respiratory: the patient does not display signs of respiratory distress, Respirations: normal, Breath sounds: are clear throughout, 15:34 Musculoskeletal/extremity: Extremities: grossly normal except: noted in the right hand: laceration, Skin lac - flap in webspace 2 cm, Skin tears, no active bleeding, 15:34 Skin: Skin tears x 3. 15:34 Neuro: Orientation: is normal, appropriate for stated age, Mentation: is normal, appropriate for stated age, No AMS per family, Vital Signs: 10:15 BP 140 / 49; Pulse 68; Resp 18; Temp 97.8; Pulse Ox 96% on R/A; Pain 4/10; hb 10:15 Pain Scale: Adult hb Laceration: 15:38 Wound Repair of 2cm ( 0.8in ) subcutaneous laceration to right hand. Distal bo1 neuro/vascular/tendon intact. Anesthesia: Local anesthetic administered with 2 mls of 1% lidocaine w/ Epi. Wound prep: Simple cleansing by me, Normal saline. Skin closed with 4 5-0 Prolene using simple sutures and sterile technique. Dressed with Bacitracin, Fawad. Patient tolerated well. MDM: 10:56 Medical Screening Exam initiated bo1 15:37 Differential diagnosis: superficial laceration, Fall, afib, "loss of balance" bo1 laceration repair needed. Data reviewed: vital signs, radiologic studies, plain films. ED course: Repair done - delayed presentation and pt is on Eliquis PO for her afib. 03/30 13:20 Order name: Humerus Right XRAY; Complete Time: 14:30 bo1 03/30 13:20 Order name: Saline Lock; Complete Time: 13:48 bo1 Administered Medications: 13:48 Drug: ceFAZolin IVPB 1 grams IVPB once Route: IVPB; Site: right wrist; iw 13:58 Follow up: IV Status: Completed infusion iw Disposition Summary: 03/30/25 15:42 Discharge Ordered Notes: Location: Home bo1 Problem: new bo1 Symptoms: have improved bo1 Condition: Stable bo1 Diagnosis - Fall on same level from slipping, tripping and stumbling with subsequent striking bo1 against object - Laceration without foreign body of right hand, initial encounter bo1 Followup: bo1 - With: Private Physician - When: 7 - 10 days - Reason: Recheck today's complaints, Continuance of care, Staple/Suture removal Discharge Instructions: - Discharge Summary Sheet bo1 - Laceration Care, Adult, [id number] bo1 Forms: - Medication Reconciliation Form bo1 - Antibiotic Education bo1 - Prescription Opioid Use bo1 - Patient Portal Instructions bo1 - Leadership Thank You Letter bo1 Prescriptions: - Cephalexin 500 mg Oral capsule - take 1 capsule ORAL route every 8 hours for 5 days; 15 capsule; Refills: 0, bo1 Product Selection Permitted Signatures: Dispatcher [employer] Sonali Shaw RN RN Sofiya Moss RN RN Nav Santos MD MD bo1 Corrections: (The following items were deleted from the chart) 13:20 13:20 Humerus Right+[email or web address] ordered. EDMS EDMS
[2025-03-30 16:02] VITALS: BP 140/49; TEMP 97.8; O2SAT 96
== END 2025-03-30 15:47 | disposition home or self-care (01) ==
LOC: ER 09:50
DX: S61.411A Laceration without foreign body of right hand, initial encounter (principal); W01.198A Fall on same level from slipping, tripping and stumbling with subsequent striking against other object, initial encounter
CPT/HCPCS: 12001; 73060; 96374; 99284; J0690